=== PATIENT | male | born 1960 | race Caucasian/White ===

== ENCOUNTER 2019-05-29 09:42 | Emergency (ER) | payer MEDICARE, SELFPAY ==
[2019-05-29] VITALS (44 sets, daily range): BP systolic 108–138; BP diastolic 61–100; PULSE 74–112; RESP 13–32; TEMP 36.5; O2SAT 82–96; BMI 37.6
--- NOTE | 2019-05-29 09:49 | ED_ITS ---
Entered by Birdie Luna, acting as scribe for HPI - Chest Pain General: Chief Complaint: Syncope Stated Complaint: SYNCOPE/ CHEST PAIN Time Seen by Provider: 05/29/19 09:46 Source: patient and EMS Mode of arrival: EMS Limitations: no limitations History of Present Illness: HPI narrative: 58 yo female presents with a syncope episode. pt states he was up when he got light headed and fell. pt states he had chest tightness with a cough. pt has a heart history with stents. pt denies any other symptoms at this time. MD complaint: chest pain (with cough) and other (syncope) Pertinent past history: prior [place] (stents in heart and bilateral legs) Onset (ago): hour(s) (just [employer]CH[employer]) Timing of current episode: constant Prior episodes: No Onset: during rest Pain radiation: none Severity: mild Quality: tightness Relieving factors: nothing Exacerbating factors: nothing Associated symptoms: Reports syncope and other (light headed, cough); Deny abdominal pain, fever(s), nausea or vomiting Treatment prior to arrival: other (EMS IV) Review of Systems Const: Denies: fever, chills, body aches, fatigue, malaise or night sweats Eyes: Denies: change in vision or blurry vision ENMT: Denies: throat pain, oral sores/lesions, dental pain, nasal discharge or nasal congestion Card: Reports: syncope Resp: Denies: wheezing GI: Denies: abdominal pain, nausea, vomiting, vomiting blood, coffee grounds in vomit, difficulty swallowing, heartburn/indigestion, diarrhea, constipation, cramping, blood in stool or black tarry stool : Denies: flank pain, difficulty urinating, painful urination, urinary frequency, urinary urgency, urinary incontinence or blood in urine Musc: Denies: neck pain, back pain, extremity pain, extremity swelling, joint pain or joint swelling Skin/Breast: Denies: rash, itching or redness Neuro: Denies: headache, numbness in extremities, weakness in extremities, changes in sensation, lack of coordination, vertigo or confusion Psych: Denies: sleeping more Endo: Denies: excessive urination, excessive thirst, tired all the time or cold intolerance Lauri/Lymph: Denies: easy bruising, easy bleeding, petechiae, enlarged lymph nodes or tender lymph nodes PFSH ED PFSH: Statuses (acute, chronic, etc) shown below reflect problem list status as previously entered and may not be historically accurate Medical History Cardiomyopathy (Acute) CHF (congestive heart failure) (Acute) Hypotension (Inactive) SALONI (obstructive sleep apnea) (Acute) Panlobular emphysema (Acute) Surgical History Status cardiac pacemaker (Acute) Family History Father Myocardial infarct Mother Myocardial infarct Other Family history of premature coronary artery disease Hypertension Social History Smoking and tobacco status: current every day smoker Quit status (tobacco): has tried quititng Second hand smoke exposure: Yes Smoking risk assessment/counseling performed?: No Alcohol intake: former Physical Exam Const: COMMON NORMALS: average body habitus, oriented x3 and alert GENERAL APPEARANCE: cooperative, comfortable, well kempt and well developed NUTRITIONAL APPEARANCE: obese ORIENTATION/CONSCIOUSNESS: Yes awake, Yes oriented to person and Yes oriented to place HENMT: COMMON NORMALS: normocephalic, head/scalp atraumatic, EAC's normal, TM's normal bilaterally, external nose normal, moist oral mucous membranes and oropharynx normal HEAD & SCALP: normocephalic and atraumatic NOSE: external nose normal EXTERNAL AUDITORY CANAL: EAC's normal TYMPANIC MEMBRANE: TM's normal bilaterally MOUTH: oral and palatal mucosa normal, lip normal and tongue normal THROAT: posterior oropharynx normal and tonsils no rmal Eye: COMMON NORMALS: PERRL, EOMs intact bilaterally, conjunctivae normal and no scleral icterus CONJUNCTIVA: Yes conjunctivae normal PUPIL: Yes PERRL Neck/C-Spine: COMMON NORMALS: full ROM, no lymphadenopathy, supple, no meningeal signs and thyroid normal THYROID: thyroid normal and asymmetrical Lymph: LYMPHATIC: no lymphadenopathy noted Cardio: COMMON NORMALS: regular rate and regular rhythm RATE: regular rate RHYTHM: regular rhythm HEART SOUNDS: no murmurs GI: COMMON NORMALS: normal to inspection, nondistended, normoactive bowel sounds, soft to palpation and no hepatosplenomegaly PALPATION: Yes soft and Yes no hepatosplenomegaly : COMMON NORMALS: Yes no CVA tenderness BLADDER/KIDNEY EXAM: Yes no CVA tenderness Back/Pelvis: COMMON NORMALS: no CVA tenderness LUMBAR SPINE/LOWER BACK: Yes normal to inspection Extremity: COMMON NORMALS: no clubbing, cyanosis or edema, no calf tenderness and no pedal edema Neuro: COMMON NORMALS: oriented x3 SENSORIUM/ORIENTATION: Yes alert, Yes oriented to person and Yes oriented to place MENINGEAL SIGNS: Yes no meningeal signs Psych: APPEARANCE: Yes well kempt Skin: COMMON NORMALS: no rashes or lesions noted and skin turgor normal GENERAL SKIN EXAM: no rashes or lesions noted and turgor normal Course ED course: Patient was up ambulating the halls and doing well. From his description sounds as if he got up quickly got lightheaded and dizzy had a near syncopal episode we will go ahead and discharge him home if he has a recurrent of episodes return he is not had any chest pain here in the emergency room. Vital Signs: Vital signs: Vital Signs Temperature 97.7 F 05/29/19 09:43 Pulse Rate 112 H 05/29/19 13:23 Respiratory Rate 18 05/29/19 13:23 Blood Pressure 138/92 05/29/19 13:23 Pulse Oximetry 94 05/29/19 13:23 MDM - Chest Pain Lab Data: Labs: Lab Results 05/29/19 05/29/19 05/29/19 Range/Units 09:30 09:30 09:30 WBC 8.7 (4.0-10.0) 10^3/ uL RBC 4.60 (4.1-5.3) 10^6/u L Hgb 11.4 L (11.7-16.6) g/dL Hct 39.0 L (42.0-52.0) % MCV 84.8 (80-94) fL MCH 24.8 L (28.0-34.0) pg MCHC 29.2 L (30.0-36.0) g/dL RDW 20.1 H (12.1-15.1) % Plt Count 238 (130-400) 10^3/c mm MPV 9.5 (7.4-10.4) fL Neut % (Auto) 53.4 % Lymph % (Auto) 33.1 % [place] % (Auto) 9.3 % Eos % (Auto) 2.8 % Baso % (Auto) 1.2 % Neut # (Auto) 4.6 (1.8-7.7) 10^3/u L Lymph # (Auto) 2.9 (0.8-4.8) 10^3/u L [place] # (Auto) 0.8 (0.2-0.9) 10^3/u L Eos # (Auto) 0.2 (0.0-0.8) 10^3/u L Baso # (Auto) 0.1 (0.0-0.1) 10^3/u L Nucleated RBC % (a uto) 0 % Nucleated RBCs # 0.0 /100WBC PT 18.50 H (10.5-13.3) SECO NDS INR 1.48 H (0.8-1.2) APTT 35.2 (23.9-36.7) SECO NDS Sodium 133 L (136-145) mmol/L Potassium 4.1 (3.5-5.1) mmol/L Chloride 96 L (98-107) mmol/L Carbon Dioxide 23 (22-29) mmol/L Anion Gap 18.1 (5-19) BUN 12 (8-23) mg/dL Creatinine 0.8 (0.7-1.2) mg/dL GFR Calculation 98.6 (90-130) mL/min Glucose 92 (74-106) mg/dL Calcium 9.8 (8.5-10.5) mg/dL Total Bilirubin 1.4 H (0.15-1.2) mg/dL AST 26 (0-40) U/L ALT 16 (0-41) U/L Alkaline Phosphata se 176 H (40-130) IU/L Troponin T Baselin e (0-15) ng/mL Troponin T 120 Min mentasta (0-15) ng/mL Delta Troponin T (0-10) ABS# Total Protein 8.1 (6.6-8.7) g/dL Albumin 4.2 (3.5-5.2) g/dL Globulin 3.9 (1.3-4.6) g/dL 05/29/19 05/29/19 Range/Units 09:30 11:38 WBC (4.0-10.0) 10^3/ uL RBC (4.1-5.3) 10^6/u L Hgb (11.7-16.6) g/dL Hct (42.0-52.0) % MCV (80-94) fL MCH (28.0-34.0) pg MCHC (30.0-36.0) g/dL RDW (12.1-15.1) % Plt Count (130-400) 10^3/c mm MPV (7.4-10.4) fL Neut % (Auto) % Lymph % (Auto) % [place] % (Auto) % Eos % (Auto) % Baso % (Auto) % Neut # (Auto) (1.8-7.7) 10^3/u L Lymph # (Auto) (0.8-4.8) 10^3/u L [place] # (Auto) (0.2-0.9) 10^3/u L Eos # (Auto) (0.0-0.8) 10^3/u L Baso # (Auto) (0.0-0.1) 10^3/u L Nucleated RBC % (a uto) % Nucleated RBCs # /100WBC PT (10.5-13.3) SECO NDS INR (0.8-1.2) APTT (23.9-36.7) SECO NDS Sodium (136-145) mmol/L Potassium (3.5-5.1) mmol/L Chloride (98-107) mmol/L Carbon Dioxide (22-29) mmol/L Anion Gap (5-19) BUN (8-23) mg/dL Creatinine (0.7-1.2) mg/dL GFR Calculation (90-130) mL/min Glucose (74-106) mg/dL Calcium (8.5-10.5) mg/dL Total Bilirubin (0.15-1.2) mg/dL AST (0-40) U/L ALT (0-41) U/L Alkaline Phosphata se (40-130) IU/L Troponin T Baselin e 35 H (0-15) ng/mL Troponin T 120 Min [place] 31.79 H (0-15) ng/mL Delta Troponin T -3.21 L (0-10) ABS# Total Protein (6.6-8.7) g/dL Albumin (3.5-5.2) g/dL Globulin (1.3-4.6) g/dL Discharge Plan Discharge Patient Disposition: Home, Self-Care Clinical Impression: Near syncope Condition: Stable Prescriptions: No Action warfarin 5 mg tablet 5 mg PO DAILY RF: 0 metoprolol succinate 50 mg tablet extended release 24 hr See Rx Instructions PO DAILY RF: 0 metolazone 2.5 mg tablet 2.5 mg PO BID PRN (Reason: Edema) RF: 0 potassium chloride 20 mEq tablet extended release 20 meq PO BID PRN (Reason: WITH WATER PILL) RF: 0 simvastatin 40 mg tablet 40 mg PO DAILY RF: 0 torsemide 100 mg tablet 200 mg PO DAILY RF: 0 nitroglycerin [Nitrostat] 0.4 mg tablet, sublingual 0.4 mg SUBLINGUAL Q5M PRN (Reason: Chest Pain) RF: 0 aspirin [Enteric Coated Aspirin] 81 mg tablet,delayed release (DR/EC) 81 mg PO DAILY RF: 0 Referrals: Ahmet Jasso MD [Primary Care Provider] - Discharge Diet: Advance as tolerated Discharge Activity: Increase activity as tolerated Patient Instructions: Chest Pain - Noncardiac, Syncope, Lightheadedness (ED), Dizziness (ED) Activity Restrictions/Additional Instructions: Return if has problems. Rest advance activity as tolerated. Follow-up with Dr. Jasso next week. Discharge Date/Time: 05/29/19 13:36 Coding Level of Care Code ED Star Route Mail Driver for Chg Fwd Exam Problem Focused The documentation recorded by the Jeremy wilson Bridget Annette, accurately reflects the service I personally performed and the decisions made by Amalia marquez Curtis L, May 29, 2019 09:42
--- NOTE | 2019-05-29 10:28 | ECG_ITS ---
Measurements Intervals [place] Rate: 84 P: NC: 0 QRS: -73 QRSD: 104 T: 98 QT: 386 QTc: 459 ATRIAL FIBRILLATION with demand ventricular pacing LEFT ANTERIOR FASCICULAR BLOCK [QRS AXIS <= -45, QR IN I, RS IN II] MINIMAL ST DEPRESSION [0.025+ mV ST DEPRESSION] ABNORMAL QRS-T ANGLE [QRS-T AXIS DIFFERENCE > 60] Compared to ECG 04/29/2019 09:45:10 ST (T wave) deviation now present Myocardial infarct finding no longer present Electronically Signed On 05-29-2019 15:26:43 GOLF RANGE ATTENDANT by Eduin Thomas M.D. [email or web address]
--- NOTE | 2019-05-29 10:28 | XRR_ITS ---
PROCEDURE INFORMATION: Exam: XR Chest, 1 View Exam date and time: 05/29/2019 10:42 AM Age: 58 years old Clinical indication: Chest pain; Type not specified; Prior surgery; Surgery type: Pacemaker TECHNIQUE: Imaging protocol: XR of the chest Views: 1 view. COMPARISON: CR Chest 1 [place] [id number] 04/29/2019 7:10 AM FINDINGS: Tubes, catheters and devices: Pacemaker is present via a left subclavian approach. Lungs: Interstitial prominence diffusely possibly chronic. Consider high-resolution CT. No focal infiltrate. Pleural space: Unremarkable. No pleural effusion. No pneumothorax. Heart/Mediastinum: Cardiac silhouette is enlarged. Bones/joints: Unremarkable. XR/XR chest 1V portable [id number] IMPRESSION: Interstitial prominence diffusely possibly chronic. Consider high-resolution CT. No focal infiltrate.
[2019-05-29 10:35] LABS: Basophils # 0.1 10^3/uL (0.0-0.1); Basophils % 1.2 %; Eosinophils # 0.2 10^3/uL (0.0-0.8); Eosinophils % 2.8 %; Hemoglobin 11.4 g/dL (11.7-16.6); Lymphocytes # 2.9 10^3/uL (0.8-4.8); Lymphocytes % 33.1 %; Mean Corpuscular HGB Conc 29.2 g/dL (30.0-36.0); Mean Corpuscular Hemoglobin 24.8 pg (28.0-34.0); Mean Corpuscular Volume 84.8 fL (80-94); Mean Platelet Volume 9.5 fL (7.4-10.4); Monocytes # 0.8 10^3/uL (0.2-0.9); Monocytes % 9.3 %; Neutrophils # 4.6 10^3/uL (1.8-7.7); Neutrophils % 53.4 %; Nucleated Red Blood Cells % 0 %; Platelet Count 238 10^3/cmm (130-400); Red Cell Distribution Width 20.1 % (12.1-15.1); White Blood Count 8.7 10^3/uL (4.0-10.0)
--- NOTE | 2019-05-29 10:38 | PC.NURSE ---
Xray performed at bedside
[2019-05-29 10:41] LABS: INR 1.48 (0.8-1.2); Partial Thromboplastin Time 35.2 SECONDS (23.9-36.7)
[2019-05-29 10:55] LABS: Alanine Aminotransferase 16 U/L (0-41); Albumin Level 4.2 g/dL (3.5-5.2); Alkaline Phosphatase 176 IU/L (40-130); Anion Gap 18.1 (5-19); Aspartate Amino Transferase 26 U/L (0-40); Blood Urea Nitrogen 12 mg/dL (8-23); Calcium 9.8 mg/dL (8.5-10.5); Carbon Dioxide 23 mmol/L (22-29); Chloride 96 mmol/L (98-107); Globulin 3.9 g/dL (1.3-4.6); Glomerular Filtration Rate 98.6 mL/min (90-130); Glucose 92 mg/dL (74-106); Potassium 4.1 mmol/L (3.5-5.1); Sodium 133 mmol/L (136-145); Total Bilirubin 1.4 mg/dL (0.15-1.2); Total Protein 8.1 g/dL (6.6-8.7)
[2019-05-29 10:56] LABS: Troponin(5th) Baseline 35 ng/mL (0-15)
--- NOTE | 2019-05-29 11:06 | US_ITS ---
WS: [id number] RIGHT UPPER QUADRANT ULTRASOUND HISTORY: elevated t bili COMPARISON: None available. Liver: 19.1 cm in length. Moderate hepatomegaly. Diffuse attenuation and increased density throughout the liver from hepatic steatosis. No bile duct dilatation. Gallbladder: Poorly visualized gallbladder. No stones identified. The wall is top normal size at 3 mm . No pericholecystic fluid. No hydrops. CBD: 4.0 mm Pancreas: Not visualized. Right kidney: 11.8 cm in length. Poorly visualized. No hydronephrosis. Aorta and IVC: Poorly visualized. No ascites. US/US gall bladder [id number] IMPRESSION: 1. Technically very limited evaluation of the RIGHT upper quadrant. 2. No evidence for acute cholecystitis. 3. Moderate hepatomegaly and severe hepatic steatosis.
--- NOTE | 2019-05-29 11:18 | PC.NURSE ---
US at bedside
[2019-05-29 12:02] LABS: Troponin 5 2HR 31.79 ng/mL (0-15)
[2019-05-29 12:06] LABS: Troponin 5 2HR Delta -3.21 ABS# (0-10)
[2019-05-29] MEDS: sodium chloride 0.9% 500 ML 999 ML IV (13:04)
--- NOTE | 2019-05-29 13:22 | PC.NURSE ---
Pt ambulated in hallways approx 300 feet with no difficulty or assistance. Dr Holland notified.
--- NOTE | 2019-05-29 16:28 | ECG_ITS ---
Measurements Intervals [place] Rate: 89 P: VA: 0 QRS: -72 QRSD: 100 T: 85 QT: 380 QTc: 464 ATRIAL FIBRILLATION WITH demand pacing LEFT AXIS DEVIATION [QRS AXIS < -30] MINIMAL ST DEPRESSION [0.025+ mV ST DEPRESSION] Compared to ECG 04/29/2019 09:45:10 Aberrant conduction of supraventricular beat(s) now present Left-axis deviation now present ST (T wave) deviation now present Ventricular-paced complex(es) still present Myocardial infarct finding no longer present Electronically Signed On 05-29-2019 15:31:29 OVENS SUPERVISOR by Eduin Thomas M.D. [email or web address]
--- NOTE | 2019-05-30 15:55 | DCPLANNER ---
manager data warehousing had message to schedule a 24 hour halter monitor for patient with [facility]. manager data warehousing faxed the order to [facility], will call for appointment information.
--- NOTE | 2019-06-04 14:40 | DCPLANNER ---
Patient had a follow up appointment scheduled for 05.30.19 with [facility], patient did not show up to the appointment.
== END 2019-05-29 13:36 | disposition home or self-care (01) ==
PROVIDERS: Emergency Provider Family Medicine; Family Provider Internal Medicine; PCP Internal Medicine
DX: R55 Syncope and collapse (principal); Z79.84 Long term (current) use of oral hypoglycemic drugs; Z79.82 Long term (current) use of aspirin; I50.9 Heart failure, unspecified; Z95.0 Presence of cardiac pacemaker; F17.210 Nicotine dependence, cigarettes, uncomplicated
CPT/HCPCS: 36415; 71045; 76705; 80053; 84484; 85025; 85610; 85730; 93005; 96360; 99284; J7040

== ENCOUNTER 2019-06-11 06:05 | Emergency (ER) | payer MEDICARE, SELFPAY ==
[2019-06-11] VITALS (8 sets, daily range): BP systolic 110–126; BP diastolic 67–88; PULSE 68–90; RESP 16–20; TEMP 36.4; O2SAT 91–99
--- NOTE | 2019-06-11 06:12 | XR_ITS ---
WS: [id number] CHEST XRAY TECHNIQUE: Portable chest. CLINICAL INFORMATION: cough COMPARISON: May 29, 2019 FINDINGS: Cardiac pacer. Heart: Cardiomegaly. Lungs: Chronic emphysematous changes. Mild diffuse interstitial thickening similar to previous. No ne w pulmonary infiltrates. Bones: Normal visualized bony structures. XR/XR chest 1V portable [id number] IMPRESSION: 1. Stable cardiomegaly. 2. Chronic emphysematous changes with stable interstitial thickening. No new i nfiltrates.
--- NOTE | 2019-06-11 06:13 | ED_ITS ---
HPI - URI/Sore Throat General: Chief Complaint: Fever Stated Complaint: fever, cough Time Seen by Provider: 06/11/19 06:12 History of Present Illness: HPI Narrative: 58-year-old male presents emergency room with complaints of cough fever generalized malaise and muscle aches. He has had this for the last several days and has been progressively worsening. A syncopal-like episode a week ago we evaluated him in the emergency room he seemed to feel better and wished to go home. On arrival here today his sats are 98% he is coughing prolifically was moderate production he was able to give a sputum sample shortly after arrival. He has had a subjective fever at home denies vomiting or diarrhea. Is not on any oxygen at home. MD elicited complaint: fever and cough Pertinent past history: COPD Onset (ago): day(s) Consistency: constant and progressively worsening Severity: similar to previous episodes Description of mucous: yellow Able to tolerate fluids by mouth: Yes Exacerbating factors: exertion and supine positioning Relieving factors: rest Associated symptoms: Reports cough, fever(s), nasal congestion and short of breath; Deny abdominal pain, chills, chest pain or nausea Treatments prior to arrival: acetaminophen Review of Systems Const: Reports: fever, body aches, change in appetite, fatigue and malaise; Denies: chills ENMT: Reports: nasal congestion Card: Denies: chest pain, edema, shortness of breath on exertion or shortness of breath when lying down Resp: Reports: shortness of breath and non-productive cough; Denies: productive cough GI: Denies: abdominal pain or nausea : Denies: flank pain, painful urination, urinary frequency or urinary urgency Skin/Breast: Denies: rash or itching PFSH ED PFSH: Statuses (acute, chronic, etc) shown below reflect problem list status as previously entered and may not be historically accurate Social History Smoking and tobacco status: current every day smoker Quit status (tobacco): has tried quititng Second hand smoke exposure: Yes Smoking risk assessment/counseling performed?: No Alcohol intake: former Physical Exam Narrative: EXAM NARRATIVE: Mildly cyanotic at the lips and perioral however his sats are normal. He has had similar appearance in the past when I seen him. Const: COMMON NORMALS: no apparent distress GENERAL APPEARANCE: cooperative and comfortable ORIENTATION/CONSCIOUSNESS: Yes awake, Yes oriented to person, Yes oriented to place and Yes oriented to time HENMT: COMMON NORMALS: normocephalic, head/scalp atraumatic, hearing grossly normal bilaterally, external ears normal, EAC's normal, TM's normal bilaterally, nasal mucous membranes and turbinates normal, moist oral mucous membranes and oropharynx normal HEAD & SCALP: normocephalic and atraumatic NOSE: nasal mucous membranes and turbinates normal EXTERNAL EAR: Yes external ears normal EXTERNAL AUDITORY CANAL: EAC's normal TYMPANIC MEMBRANE: TM's normal bilaterally Eye: COMMON NORMALS: PERRL, EOMs intact bilaterally, conjunctivae normal and no scleral icterus CONJUNCTIVA: Yes conjunctivae normal PUPIL: Yes PERRL Neck/C-Spine: COMMON NORMALS: full ROM, no lymphadenopathy, supple and no JVD Lymph: LYMPHATIC: no lymphadenopathy noted and no lymphedema noted Resp: AUSCULTATION: wheezes and diminished lung sounds Cardio: COMMON NORMALS: no JVD, regular rate, regular rhythm and no murmurs RATE: regular rate RHYTHM: regular rhythm GI: COMMON NORMALS: soft to palpation and no hepatosplenomegaly AUSCULTATION: Yes normoactive bowel sounds PALPATION: Yes soft, No tender, No guarding and Yes no hepatosplenomegaly Extremity: COMMON NORMALS: normal to inspection, normal capillary refill, no clubbing, cyanosis or edema, no calf tenderness and no pedal edema Neuro: SENSORIUM/ORIENTATION: Yes oriented to person, Yes oriented to place and Yes oriented to time Skin: COMMON NORMALS: no rashes or lesions noted GENERAL SKIN EXAM: no rashes or lesions noted Course ED course: Sats are normal labs reviewed patient is feeling much better after nebulizers encouraged nausea use the nebulizer at least every 4 hours as needed but at minimum 4 times a day will also start him on Spiriva given Levaquin and a Medrol Dosepak we will get him set up to see Dr. Ragsdale Vital Signs: Vital signs: Vital Signs Temperature 97.5 F L 06/11/19 06:11 Pulse Rate 68 06/11/19 10:07 Respiratory Rate 18 06/11/19 09:53 Blood Pressure 126/67 06/11/19 10:07 Pulse Oximetry 91 02/05/20 10:07 MDM - URI/Sore Throat Lab Data: Labs: Lab Results 06/11/19 06/11/19 06/11/19 Range/Units 06:20 06:30 07:00 WBC 9.3 (4.0-10.0) 10^3/ uL RBC 4.58 (4.1-5.3) 10^6/u L Hgb 11.3 L (11.7-16.6) g/dL Hct 38.1 L (42.0-52.0) % MCV 83.2 (80-94) fL MCH 24.7 L (28.0-34.0) pg MCHC 29.7 L (30.0-36.0) g/dL RDW 20.2 H (12.1-15.1) % Plt Count 295 (130-400) 10^3/c mm MPV 9.1 (7.4-10.4) fL Neut % (Auto) 52.1 % Lymph % (Auto) 33.6 % [place] % (Auto) 10.7 % Eos % (Auto) 2.1 % Baso % (Auto) 1.1 % Neut # (Auto) 4.8 (1.8-7.7) 10^3/u L Lymph # (Auto) 3.1 (0.8-4.8) 10^3/u L [place] # (Auto) 1.0 H (0.2-0.9) 10^3/u L Eos # (Auto) 0.2 (0.0-0.8) 10^3/u L Baso # (Auto) 0.1 (0.0-0.1) 10^3/u L Nucleated RBC % (a uto) 0.4 % Nucleated RBCs # 0.0 /100WBC Specimen Type Arterial Sample Site Radial, right ABG pH 7.44 (7.35-7.45) ABG pCO2 30.8 L (35-45) mmHg ABG pO2 71.4 L (80.0-100.0) mmH g ABG HCO3 21.0 L (22-26) mmol/L ABG O2 Saturation 95.3 ABG Base Excess -2.3 L (-2.0-2.0) mmol/ L Jose Alberto Test Pos A-a O2 Gradient 85.8 H (5-10) mmHg Hematocrit 35.4 L (42-52) % Hgb O2 Saturation 91.6 L (95-100) % Carboxyhemoglobin 3.6 (0.4-20.1) %THgb Methemoglobin 0.2 L (0.4-1.5) % Total Hemoglobin 11.5 L (14-18) g/dL Sodium 132.0 (131-143) mmol/L Potassium 4.1 (3.5-5.0) mmol/L Glucose 103.0 (70-115) mg/dL Ionized Calcium 1.1 (1.1-1.4) mmol/L O2 Delivery Device Nc O2 Liters/Min 2.0 % FiO2 28.0 % Dump Motor Operator ID [email or web address] Chloride (98-107) mmol/L Carbon Dioxide (22-29) mmol/L Anion Gap (5-19) BUN (8-23) mg/dL Creatinine (0.7-1.2) mg/dL GFR Calculation (90-130) mL/min Calcium (8.5-10.5) mg/dL Total Bilirubin (0.15-1.2) mg/dL AST (0-40) U/L ALT (0-41) U/L Alkaline Phosphata se (40-130) IU/L Total Protein (6.6-8.7) g/dL Albumin (3.5-5.2) g/dL Globulin (1.3-4.6) g/dL Influenza Type A A g Negative (Negative) POC Influenza B Ag Negative (Negative) 06/11/19 Range/Units 07:00 WBC (4.0-10.0) 10^3/ uL RBC (4.1-5.3) 10^6/u L Hgb (11.7-16.6) g/dL Hct (42.0-52.0) % MCV (80-94) fL MCH (28.0-34.0) pg MCHC (30.0-36.0) g/dL RDW (12.1-15.1) % Plt Count (130-400) 10^3/c mm MPV (7.4-10.4) fL Neut % (Auto) % Lymph % (Auto) % [place] % (Auto) % Eos % (Auto) % Baso % (Auto) % Neut # (Auto) (1.8-7.7) 10^3/u L Lymph # (Auto) (0.8-4.8) 10^3/u L [place] # (Auto) (0.2-0.9) 10^3/u L Eos # (Auto) (0.0-0.8) 10^3/u L Baso # (Auto) (0.0-0.1) 10^3/u L Nucleated RBC % (a uto) % Nucleated RBCs # /100WBC Specimen Type Sample Site ABG pH (7.35-7.45) ABG pCO2 (35-45) mmHg ABG pO2 (80.0-100.0) mmH g ABG HCO3 (22-26) mmol/L ABG O2 Saturation ABG Base Excess (-2.0-2.0) mmol/ L Jose Alberto Test A-a O2 Gradient (5-10) mmHg Hematocrit (42-52) % Hgb O2 Saturation (95-100) % Carboxyhemoglobin (0.4-20.1) %THgb Methemoglobin (0.4-1.5) % Total Hemoglobin (14-18) g/dL Sodium 130 L (131-143) mmol/L Potassium 4.4 (3.5-5.0) mmol/L Glucose 101 (70-115) mg/dL Ionized Calcium (1.1-1.4) mmol/L O2 Delivery Device O2 Liters/Min % FiO2 % Dump Motor Operator ID Chloride 98 (98-107) mmol/L Carbon Dioxide 21 L (22-29) mmol/L Anion Gap 15.4 (5-19) BUN 16 (8-23) mg/dL Creatinine 1.1 (0.7-1.2) mg/dL GFR Calculation 68.3 L (90-130) mL/min Calcium 9.3 (8.5-10.5) mg/dL Total Bilirubin 1.7 H (0.15-1.2) mg/dL AST 33 (0-40) U/L ALT 22 (0-41) U/L Alkaline Phosphata se 196 H (40-130) IU/L Total Protein 8.6 (6.6-8.7) g/dL Albumin 3.7 (3.5-5.2) g/dL Globulin 4.9 H (1.3-4.6) g/dL Influenza Type A A g (Negative) POC Influenza B Ag (Negative) Discharge Plan Discharge Patient Disposition: Home, Self-Care Clinical Impression: Panlobular emphysema, SALONI (obstructive sleep apnea) Condition: Stable Prescriptions: New Medrol (Zeke) 4 mg tablets,dose pack See Rx Instructions .ROUTE .COMPLEX Qty: 21 RF: 0 Spiriva Respimat 2.5 mcg/actuation mist 2 puff INHALATION DAILY Qty: 4 RF: 0 Levaquin 750 mg tablet 750 mg PO DAILY 7 Days Qty: 7 RF: 0 No Action warfarin 5 mg tablet 5 mg PO DAILY RF: 0 metoprolol succinate 50 mg tablet extended release 24 hr See Rx Instructions PO DAILY RF: 0 metolazone 2.5 mg tablet 2.5 mg PO BID PRN (Reason: Edema) RF: 0 potassium chloride 20 mEq tablet extended release 20 meq PO BID PRN (Reason: WITH WATER PILL) RF: 0 simvastatin 40 mg tablet 40 mg PO DAILY RF: 0 torsemide 100 mg tablet 200 mg PO DAILY RF: 0 nitroglycerin [Nitrostat] 0.4 mg tablet, sublingual 0.4 mg SUBLINGUAL Q5M PRN (Reason: Chest Pain) RF: 0 aspirin [Enteric Coated Aspirin] 81 mg tablet,delayed release (DR/EC) 81 mg PO DAILY RF: 0 Discharge Orders: Discharge Order (Routine); Ordered 06/11/19 Ordered By: Conrad Holland Referrals: Tawny Ragsdale MD [Physician] - (COPD) Discharge Diet: Usual diet Discharge Activity: Increase activity as tolerated Activity Restrictions/Additional Instructions: Use nebulizers 4 times a day scheduled and every 2 hours as needed. Case management will call with an appointment to see the coke handling supervisor Discharge Date/Time: 06/11/19 10:07 Coding Level of Care Code ED Category Analyst for Ruma Conley
[2019-06-11] MEDS: ipratropium-albuterol 3 mL Neb INHALATION (06:23)
--- NOTE | 2019-06-11 06:30 | PC.NURSE ---
o2 placed at 2 lpm r/t desat to 88 when coughing and poor perph perfusion
[2019-06-11 06:38] LABS: ABG PCO2 30.8 mmHg (35-45); ABG PH Result 7.44 (7.35-7.45); Alveolar-Arterial Oxygen Gradi 85.8 mmHg (5-10); Arterial Blood Gas Hematocrit 35.4 % (42-52); Base Excess ABG -2.3 mmol/L (-2.0-2.0); Blood Gas Allen Test Pos; Blood Gas Sample Site Radial, right; Blood Gas Sample Type Arterial; Carboxyhemoglobin 3.6 %THgb (0.4-20.1); HGB O2 Sat 91.6 % (95-100); Ionized Calcium Level - ABG 1.1 mmol/L (1.1-1.4); Methemoglobin 0.2 % (0.4-1.5); Oxygen Device NC; Oxygen Saturation ABG 95.3; PO2 ABG 71.4 mmHg (80.0-100.0); Potassium Level - ABG 4.1 mmol/L (3.5-5.0); Total Hemoglobin 11.5 g/dL (14-18)
[2019-06-11 07:11] LABS: Basophils # 0.1 10^3/uL (0.0-0.1); Basophils % 1.1 %; Eosinophils # 0.2 10^3/uL (0.0-0.8); Eosinophils % 2.1 %; Hematocrit 38.1 % (42.0-52.0); Hemoglobin 11.3 g/dL (11.7-16.6); Lymphocytes # 3.1 10^3/uL (0.8-4.8); Lymphocytes % 33.6 %; Mean Corpuscular HGB Conc 29.7 g/dL (30.0-36.0); Mean Corpuscular Hemoglobin 24.7 pg (28.0-34.0); Mean Corpuscular Volume 83.2 fL (80-94); Mean Platelet Volume 9.1 fL (7.4-10.4); Monocytes % 10.7 %; Neutrophils # 4.8 10^3/uL (1.8-7.7); Neutrophils % 52.1 %; Nucleated Red Blood Cells % 0.4 %; Platelet Count 295 10^3/cmm (130-400); Red Blood Count 4.58 10^6/uL (4.1-5.3); Red Cell Distribution Width 20.2 % (12.1-15.1); White Blood Count 9.3 10^3/uL (4.0-10.0)
[2019-06-11] MEDS: FUROsemide 10 mg/mL SDV 4mL 40 MG IVP (07:26)
[2019-06-11 07:28] LABS: Alanine Aminotransferase 22 U/L (0-41); Albumin Level 3.7 g/dL (3.5-5.2); Alkaline Phosphatase 196 IU/L (40-130); Anion Gap 15.4 (5-19); Aspartate Amino Transferase 33 U/L (0-40); Blood Urea Nitrogen 16 mg/dL (8-23); Calcium 9.3 mg/dL (8.5-10.5); Carbon Dioxide 21 mmol/L (22-29); Chloride 98 mmol/L (98-107); Globulin 4.9 g/dL (1.3-4.6); Glomerular Filtration Rate 68.3 mL/min (90-130); Potassium 4.4 mmol/L (3.5-5.1); Sodium 130 mmol/L (136-145); Total Bilirubin 1.7 mg/dL (0.15-1.2); Total Protein 8.6 g/dL (6.6-8.7)
[2019-06-11 07:40] LABS: Influenza A by IFA Negative (Negative); Influenza B by IFA Negative (Negative)
[2019-06-11 09:18] LABS: Glucose 101 mg/dL (65-115)
--- NOTE | 2019-06-11 09:40 | PC.PHAR ---
pt unable to verify meds, pt states his takes care of his medications and she is at work and cant answer her phone
[2019-06-11] MEDS: levoFLOXacin 750 mg Tablet PO (09:49)
--- NOTE | 2019-06-12 14:17 | DCPLANNER ---
geographic information systems manager had message to schedule a follow up appointment for patient with Dr. Ragsdale, at [facility]. geographic information systems manager called [facility], spoke with Angela, a follow up appointment was scheduled for Sunday, July 02, 2019 at 2:00 with . Clinic will call patient with appointment information.
--- NOTE | 2019-07-08 10:20 | DCPLANNER ---
Patient attended appointment with [facility], appointment was rescheduled from 07.02.19 to 06.30.19.
== END 2019-06-11 10:07 | disposition home or self-care (01) ==
PROVIDERS: Emergency Provider Family Medicine; Family Provider Internal Medicine; PCP Internal Medicine
DX: J43.1 Panlobular emphysema (principal); G47.33 Obstructive sleep apnea (adult) (pediatric); F17.200 Nicotine dependence, unspecified, uncomplicated
CPT/HCPCS: 36415; 36600; 71045; 80051; 80053; 82810; 83986; 85025; 87070; 87077; 87186; 87205; 87804; 94640; 96374; 96375; 99283; J1940

== ENCOUNTER 2019-07-08 08:55 | Outpatient (CLI) | payer MEDICARE, SELFPAY ==
--- NOTE | 2019-07-08 10:15 | CT_ITS ---
WS: [id number] CT CHEST CT, HIGH RESOLUTION. HISTORY: shortness of breath Technique: All CT scans at [facility] use at least one of these dose optimization techniq ues: automated exposure control; mA and/or kV adjustment per patient size (includes targeted exams wh ere dose is matched to clinical indication); or iterative reconstruction. DLP: 2033.79 mGycm COMPARISON: 09/14/[address] performed in prone and supine position with inspiration and expiration. Lungs are hyperinflated. No traction bronchiectasis or honeycombing. Hazy groundglass attenuation th roughout both lungs. There are numerous thin-walled cystic masses present bilaterally. The largest in the LEFT upper lobe measures 2.2 cm. Mild early changes of bronchiectasis in the lower lung freed a nd in the RIGHT middle lobe and to a lesser extent the upper lobes bilaterally. No dense areas of con solidation. There is mediastinal and hilar adenopathy. Some of these lymph nodes contain coarse calci fications centrally. These lymph nodes were described on 09/14/2017 also. Largest lymph node is subcar inal with a maximum diameter of 2.5 cm. Mild atherosclerosis aorta. Single lead LEFT cardiac pacer. Pulmonary artery size is enlarged measuri ng 3.5 cm in diameter. Moderate cardiomegaly. Surface of the liver is lobulated suggesting cirrhosis. No adrenal mass identified but adrenal glands are incompletely included. CT/CT chest wo con 75354 IMPRESSION: 1. Correlate for centrilobular emphysema and hypersensitivity pneumonia. Less likely Langerhans' cell histiocytosis. 2. Mediastinal and hilar adenopathy. Chronic adenopathy may be from prior gran ulomatous disease. 3. Enlarged heart mild pulmonary hypertension. 4. Suspect cirrhosis.
== END 2019-07-08 08:56 | disposition home or self-care (01) ==
LOC: RADWPI 08:58
PROVIDERS: Family Provider Internal Medicine; PCP Internal Medicine; Visit Provider Internal Medicine Critical Care Medicine
DX: I27.20 Pulmonary hypertension, unspecified (principal); I51.7 Cardiomegaly; R06.02 Shortness of breath; I48.0 Paroxysmal atrial fibrillation; Z95.0 Presence of cardiac pacemaker
CPT/HCPCS: 71250; 85610

== ENCOUNTER 2019-07-15 15:35 | Emergency (ER) | payer MEDICARE, SELFPAY ==
[2019-07-15 15:47] VITALS: BP 113/65; PULSE 63; RESP 16; TEMP 36.6; O2SAT 94; BMI 37.3
--- NOTE | 2019-07-15 16:24 | ED_ITS ---
Entered by Marry Jenkins, acting as scribe for Ernestina Billings Tanya Jul 15, 2019 15:35 HPI - General Adult General: Chief complaint: General Medical Stated complaint: BLOOD PRESSURE Time Seen by Provider: 07/15/19 16:23 Source: patient Mode of arrival: ambulatory Limitations: no limitations History of Present Illness: HPI narrative: 58 yo Male presents to ED with complaint of low blood pressure, dizziness, and lightheaded. Pt states that he is concerned that his blood pressure is too low. Pt states that he is concerned that one of his medications may be making him feel dizzy and light headed. Pt states that everything is ok during the day but it seems like it gets worse at night. Pt has a list of blood pressures that have ranged from the 100s-110s, but nothing lower than that. Pt states that he has started taking a new medication that Dr. Amor prescribed him. Pt states that he has a follow up appointment with Dr. Amor on . MD complaint: low blood pressure Onset (ago): day(s) Radiation: non-radiation Pain Consistency: intermittent Relieving factors: none Exacerbating factors: none Associated symptoms: Reports weakness and other (lightheaded/dizzy); Deny chest pain, confusion, diaphoresis, dyspnea, headache(s), malaise, nausea, rash, palpitations, syncope or vomiting Treatments prior to arrival: none Review of Systems General: Reports: other (negative unless marked) Const: Denies: fever, chills, body aches, fatigue, malaise or diaphoresis Eyes: Denies: change in vision or blurry vision ENMT: Denies: throat pain, painful swallowing, hoarseness, ear pain, ear discharge, Change in hearing or nasal discharge Card: Denies: chest pain, palpitations, irregular heart rhythm, syncope, pre- syncope, shortness of breath on exertion or shortness of breath when lying down Resp: Denies: shortness of breath, productive cough, non-productive cough, wheezing, coughing up blood or chest congestion GI: Denies: abdominal pain, nausea, vomiting, vomiting blood, coffee grounds in vomit, diarrhea, constipation, cramping, blood in stool or black tarry stool : Denies: flank pain, difficulty urinating, painful urination, urinary frequency, urinary urgency, decreased urine ouput, urinary incontinence or blood in urine Musc: Denies: neck pain, back pain, extremity pain, extremity swelling, joint pain, joint swelling, joint warmth or joint stiffness Skin/Breast: Denies: rash, skin tenderness or yellow skin Neuro: Reports: dizziness; Denies: headache, numbness in extremities, weakness in extremities, changes in sensation, lack of coordination, difficulty walking, vertigo or confusion Endo: Denies: excessive thirst, tired all the time, cold intolerance, excessive sweating, flushing or hot flashes Lauri/Lymph: Denies: easy bruising, easy bleeding, petechiae or enlarged lymph nodes All/Imm: Denies: hives, throat swelling, tongue swelling, facial swelling or acute wheezing PFSH ED PFSH: Medical History Anemia CAD in [place] artery Cardiomyopathy CHF (congestive heart failure) Combined systolic and diastolic. LVEF by LV gram in 2017 was 40%. CVA (cerebral vascular accident) HTN (hypertension) Hyperlipidemia Hypotension Hypothyroid Nicotine dependence, cigarettes, with unspecified nicotine-induced disorders Orthostasis SALONI (obstructive sleep apnea) Pacemaker 2014- dual chamber Panlobular emphysema Paroxysmal A-fib PVD (peripheral vascular disease) Vitamin B12 deficiency Surgical History H/O coronary angioplasty 2013 H/O reduction of closed fracture ankle History of cardiac radiofrequency ablation (RFA) 33802 Hx of appendectomy Status cardiac pacemaker Family History Father Myocardial infarct Mother Myocardial infarct Other Family history of premature coronary artery disease Hypertension Social History Smoking and tobacco status: current every day smoker cigarettes Packs smoked per day: 1 Years cigarettes smoked: 40 Quit status (tobacco): has tried quititng Second hand smoke exposure: Yes Smoking risk assessment/counseling performed?: Yes Alcohol intake: former Year of sobriety/quit date alcohol: 1980 Lives independently: Yes Household members: spouse Marital status: Current occupational status: disabled History of recent travel: No Current gender identity: Male Physical Exam Const: COMMON NORMALS: no apparent distress, oriented x3, no limitations, healthy appearing and well nourished EXAM LIMITATIONS: no altered mental status GENERAL APPEARANCE: cooperative, well kempt and well developed ORIENTATION/CONSCIOUSNESS: Yes awake HENMT: COMMON NORMALS: normocephalic, head/scalp atraumatic, hearing grossly normal bilaterally, external ears normal, EAC's normal, external nose normal and moist oral mucous membranes HEAD & SCALP: normal to inspection, normocephalic and atraumatic FACE & SINUS: normal facial exam and face symmetric NOSE: external nose normal and nares normal EXTERNAL EAR: Yes external ears normal EXTERNAL AUDITORY CANAL: EAC's normal MOUTH: oral and palatal mucosa normal and tongue normal Eye: COMMON NORMALS: PERRL, EOMs intact bilaterally, conjunctivae normal and no scleral icterus GENERAL EYE: normal appearance of both eyes and normal light reflex CONJUNCTIVA: Yes conjunctivae normal SCLERA: sclerae normal CORNEA: Yes corneas normal PUPIL: Yes PERRL DIRECT OPHTHALMOSCOPY: Yes normal light reflex Neck/C-Spine: COMMON NORMALS: full ROM, no lymphadenopathy, supple, no meningeal signs and no JVD GENERAL: Yes normal visual inspection and Yes trachea midline CERVICAL SPINE: Yes cervical ROM normal Chest: COMMONS NORMALS: inspection of chest normal and palpation of chest normal Resp: COMMON NORMALS: normal respiratory effort, no retractions, no use of accessory muscles and clear to auscultation bilaterally EFFORT & INSPECTION: Yes able to speak in complete sentences AUSCULTATION: clear to auscultation bilaterally Cardio: COMMON NORMALS: no JVD, regular rate, regular rhythm, S1 normal heart sound, S2 normal heart sound, no gallops, no clicks, no murmurs and no rub JUGULAR VENOUS DISTENTION: no JVD RATE: regular rate RHYTHM: regular rhythm HEART SOUNDS: S1 normal and S2 normal GI: COMMON NORMALS: soft to palpation, non-tender, no hepatosplenomegaly and no masses INSPECTION: Yes normal to inspection PALPATION: Yes soft and Yes no hepatosplenomegaly : COMMON NORMALS: Yes no CVA tenderness BLADDER/KIDNEY EXAM: Yes no CVA tenderness Back/Pelvis: COMMON NORMALS: no CVA tenderness, thoracic and lumbar spine normal to inspection, no thoracic nor lumbar tenderness and thoraco-lumbar ROM normal Extremity: COMMON NORMALS: normal to inspection, full ROM, normal capillary refill, no joint enlargement, no clubbing, cyanosis or edema and no calf tenderness Neuro: COMMON NORMALS: oriented x3, CN's II-XII intact bilaterally, moves all extremities, no focal motor deficits and no sensory deficits noted MENINGEAL SIGNS: Yes no meningeal signs Psych: COMMON NORMALS: mental status grossly normal, thought process normal, cooperative, affect normal, speech normal and activity/motor behavior normal APPEARANCE: Yes well kempt SPEECH: Yes normal speech THOUGHT PROCESS: normal thought process Skin: COMMON NORMALS: no rashes or lesions noted, skin turgor normal, no jaundice, no petechiae and no mottling GENERAL SKIN EXAM: no rashes or lesions noted and turgor normal Course Vital Signs: Vital signs: Vital Signs Temperature 97.8 F 07/15/19 15:47 Pulse Rate 78 07/15/19 16:55 Respiratory Rate 17 07/15/19 16:55 Blood Pressure 125/74 07/15/19 16:55 Pulse Oximetry 98 07/15/19 16:55 MDM - General Adult MDM Narrative: Medical decision making narrative: Leroy comes in complaining of low blood pressures. He sounds relatively asymptomatic with this. His pressures are down in the 100s and 1 teens but no lower. His heart rate is in the 60s to 70s with this. 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 Dowling on as scheduled. Patient has no symptoms with this he just wanted to be certain this was not too low as his blood pressure has been routinely much higher than this. He is asymptomatic at this time and declines any work-up. Discharge Plan Discharge Patient Disposition: Home, Self-Care Clinical Impression: Hypertension Qualifiers: Hypertension type: unspecified Qualified Code(s): I10 - Essential (primary) hypertension Condition: Stable Prescriptions: No Action warfarin 5 mg tablet 5 mg PO DAILY RF: 0 metolazone 2.5 mg tablet 2.5 mg PO BID PRN (Reason: Edema) RF: 0 potassium chloride 20 mEq tablet extended release 20 meq PO BID PRN (Reason: WITH WATER PILL) RF: 0 simvastatin 40 mg tablet 40 mg PO DAILY RF: 0 torsemide 100 mg tablet 200 mg PO DAILY RF: 0 nitroglycerin [Nitrostat] 0.4 mg tablet, sublingual 0.4 mg SUBLINGUAL Q5M PRN (Reason: Chest Pain) RF: 0 aspirin [Enteric Coated Aspirin] 81 mg tablet,delayed release (DR/EC) 81 mg PO DAILY RF: 0 metoprolol succinate 50 mg tablet extended release 24 hr 75 mg PO DAILY RF: 0 Anoro Ellipta 62.5-25 mcg/actuation blister with device 1 inh INHALATION Q24H 60 Days Qty: 60 RF: 0 warfarin 1 mg tablet 1 mg PO DAILY Qty: 90 RF: 3 Medrol (Zeke) 4 mg tablets,dose pack See Rx Instructions .ROUTE .COMPLEX Qty: 21 RF: 0 Discharge Orders: Discharge Order (Routine); Ordered 07/15/19 Ordered By: Ernestina Billings Referrals: Ahmet Jasso MD [Primary Care Provider] - Yomi Amor MD [Physician] - 1-3 days (Follow up with Dr. Amor on as scheduled. Continue your keeping a log of your blood pressures until you see him.) Discharge Diet: Usual diet Discharge Activity: Limit activity as instructed Patient Instructions: Hypertension (ED) Activity Restrictions/Additional Instructions: Please return to the ER immediately for any of the signs or symptoms listed on your discharge instruction sheets, worsening/changing of your symptoms, you are not getting better as quickly as expected, or for ANY other cause or concerns. Be certain to follow-up with Dr. Dowling as scheduled. Continue to keep a log of your blood pressure so you can show him at your visit. Discharge Date/Time: 07/15/19 16:56 Coding Level of Care Code ED Nutritionist Public Health for Chg Fwd Exam Comprehensive The documentation recorded by the Gregory wilson Carmen, accurately reflects the service I personally performed and the decisions made by Manuelito marquez Eli N Jul 15, 2019 15:35
[2019-07-15 16:55] VITALS: BP 125/74; PULSE 78; RESP 17; O2SAT 98
--- NOTE | 2019-07-16 11:20 | DCPLANNER ---
transition manager had a message to schedule a follow up appointment for patient with [facility]. transition manager called [facility], spoke with Angela, a follow up appointment is scheduled for July at 1:[address] Amor. Clinic will call patient with appointment information.
--- NOTE | 2019-07-18 12:37 | DCPLANNER ---
Patient did attend appointment scheduled for 07.17.19 with [facility].
== END 2019-07-15 16:56 | disposition home or self-care (01) ==
PROVIDERS: Emergency Provider Emergency Medicine; Family Provider Internal Medicine; PCP Internal Medicine
DX: I11.0 Hypertensive heart disease with heart failure (principal); I50.40 Unspecified combined systolic (congestive) and diastolic (congestive) heart failure; I25.10 Atherosclerotic heart disease of native coronary artery without angina pectoris; I42.9 Cardiomyopathy, unspecified; E78.5 Hyperlipidemia, unspecified; E03.9 Hypothyroidism, unspecified; I48.0 Paroxysmal atrial fibrillation; F17.210 Nicotine dependence, cigarettes, uncomplicated; Z79.01 Long term (current) use of anticoagulants; Z95.0 Presence of cardiac pacemaker; Z86.73 Personal history of transient ischemic attack (TIA), and cerebral infarction without residual deficits
CPT/HCPCS: 12345; 99281

== ENCOUNTER 2019-07-23 03:23 | Inpatient (IN) | payer MEDICARE, SELFPAY ==
[2019-07-23] VITALS (19 sets, daily range): BP systolic 115–157; BP diastolic 58–97; PULSE 57–78; RESP 14–27; TEMP 36.3–37; O2SAT 91–98; BMI 37.3
--- NOTE | 2019-07-23 03:25 | ED_ITS ---
Entered by Patsy Zamarripa, acting as scribe for HPI - Chest Pain General: Chief Complaint: Chest Pain Stated Complaint: Chest Pain Time Seen by Provider: 07/23/19 03:25 Source: patient and EMS Mode of arrival: EMS Limitations: no limitations History of Present Illness: HPI narrative: 59 yo m came to the er by [facility] for chest pain. 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 Pt said that he started having tight chest pains around 2200 - 2300. Pt said that he has had an angiograhm in the past. Pt said that he does smoke at this time. Pt said that he has been running a mild fever, a productive cough with green phlegm. MD complaint: chest pain Timing of current episode: constant Prior episodes: Yes Onset: during rest Pain location: substernal Pain radiation: none Severity: mild Quality: tightness Relieving factors: nitroglycerin Exacerbating factors: nothing Associated symptoms: Reports fever(s); Deny abdominal pain or dyspnea Treatment prior to arrival: aspirin (324mg at home ) and nitroglycerin (3 nitro before ems was called and 1 nitro in route to er) Risk Factors: Coronary artery disease risk factors: none Thoracic aortic dissection risk factors: none Review of Systems General: Reports: other (negative unless marked) Const: Reports: fever ENMT: Denies: throat pain, ear pain, nasal discharge or nasal congestion Card: Reports: chest pain Resp: Reports: productive cough; Denies: shortness of breath GI: Denies: abdominal pain : Denies: flank pain, painful urination, urinary frequency or urinary urgency Skin/Breast: Denies: rash or itching PFSH ED PFSH: Medical History Anemia CAD in [place] artery Cardiomyopathy CHF (congestive heart failure) Combined systolic and diastolic. LVEF by LV gram in 2017 was 40%. CVA (cerebral vascular accident) HTN (hypertension) Hyperlipidemia Hypotension Hypothyroid Nicotine dependence, cigarettes, with unspecified nicotine-induced disorders Orthostasis SALONI (obstructive sleep apnea) Pacemaker 2014- dual chamber Panlobular emphysema Paroxysmal A-fib PVD (peripheral vascular disease) Vitamin B12 deficiency Surgical History H/O coronary angioplasty 2013 H/O reduction of closed fracture ankle History of cardiac radiofrequency ablation (RFA) 26875 Hx of appendectomy Status cardiac pacemaker Family History Father Myocardial infarct Mother Myocardial infarct Other Family history of premature coronary artery disease Hypertension Social History Smoking and tobacco status: current some day smoker cigarettes Packs smoked per day: 1 Years cigarettes smoked: 40 Quit status (tobacco): has tried quititng Second hand smoke exposure: Yes Smoking risk assessment/counseling performed?: Yes Alcohol intake: former Year of sobriety/quit date alcohol: 1979 Lives independently: Yes Household members: spouse Marital status: Current occupational status: disabled History of recent travel: No Current gender identity: Male Physical Exam Const: COMMON NORMALS: no apparent distress GENERAL APPEARANCE: cooperative and comfortable ORIENTATION/CONSCIOUSNESS: Yes awake, Yes oriented to person, Yes oriented to place and Yes oriented to time HENMT: COMMON NORMALS: normocephalic, head/scalp atraumatic, hearing grossly normal bilaterally, external ears normal, EAC's normal, TM's normal bilaterally, nasal mucous membranes and turbinates normal, moist oral mucous membranes and oropharynx normal HEAD & SCALP: normocephalic, atraumatic and cyanosis of lips/distal nose (Lips) FACE & SINUS: acrocyanosis present (Lips) NOSE: nasal mucous membranes and turbinates normal EXTERNAL EAR: Yes external ears normal EXTERNAL AUDITORY CANAL: EAC's normal TYMPANIC MEMBRANE: TM's normal bilaterally Eye: COMMON NORMALS: PERRL, EOMs intact bilaterally, conjunctivae normal and no scleral icterus CONJUNCTIVA: Yes conjunctivae normal PUPIL: Yes PERRL Neck/C-Spine: COMMON NORMALS: full ROM, no lymphadenopathy, supple and no JVD Lymph: LYMPHATIC: no lymphadenopathy noted and no lymphedema noted Resp: COMMON NORMALS: normal respiratory effort, no retractions, no use of ac cessory muscles and clear to auscultation bilaterally AUSCULTATION: clear to auscultation bilaterally Cardio: COMMON NORMALS: no JVD, regular rate, regular rhythm and no murmurs RATE: regular rate RHYTHM: regular rhythm GI: COMMON NORMALS: soft to palpation and no hepatosplenomegaly AUSCULTATION: Yes normoactive bowel sounds PALPATION: Yes soft, No tender, No guarding and Yes no hepatosplenomegaly Extremity: COMMON NORMALS: normal to inspection, normal capillary refill, no clubbing, cyanosis or edema, no calf tenderness and no pedal edema Neuro: SENSORIUM/ORIENTATION: Yes oriented to person, Yes oriented to place and Yes oriented to time Skin: COMMON NORMALS: no rashes or lesions noted GENERAL SKIN EXAM: no rashes or lesions noted Course ED course: Admit the patient for rule out. Discussed with Dr. Dumont. Vital Signs: Vital signs: Vital Signs Temperature 97.5 F L 07/24/19 14:46 Pulse Rate 63 07/24/19 14:46 Respiratory Rate 22 H 07/24/19 14:46 Blood Pressure 110/81 07/24/19 14:46 Pulse Oximetry 100 07/24/19 14:46 MDM - Chest Pain Lab Data: Labs: Lab Results 07/23/19 07/23/19 07/23/19 Range/Units 03:30 03:30 03:30 WBC 10.3 H (4.0-10.0) 10^3/ uL RBC 4.45 (4.1-5.3) 10^6/u L Hgb 11.0 L (11.7-16.6) g/dL Hct 37.2 L (42.0-52.0) % MCV 83.6 (80-94) fL MCH 24.7 L (28.0-34.0) pg MCHC 29.6 L (30.0-36.0) g/dL RDW 21.4 H (12.1-15.1) % Plt Count 259 (130-400) 10^3/c mm MPV 9.6 (7.4-10.4) fL Neut % (Auto) 58.4 % Lymph % (Auto) 28.6 % Stephens % (Auto) 9.3 % Eos % (Auto) 2.5 % Baso % (Auto) 1.0 % Neut # (Auto) 6.0 (1.8-7.7) 10^3/u L Lymph # (Auto) 3.0 (0.8-4.8) 10^3/u L Stephens # (Auto) 1.0 H (0.2-0.9) 10^3/u L Eos # (Auto) 0.3 (0.0-0.8) 10^3/u L Baso # (Auto) 0.1 (0.0-0.1) 10^3/u L Nucleated RBC % (a uto) 0.2 % Nucleated RBCs # 0.0 /100WBC PT (10.5-13.3) SECO NDS INR (0.8-1.2) Sodium 134 L (136-145) mmol/L Potassium 4.0 (3.5-5.1) mmol/L Chloride 98 (98-107) mmol/L Carbon Dioxide 27 (22-29) mmol/L Anion Gap 13.0 (5-19) BUN 14 (8-23) mg/dL Creatinine 1.1 (0.7-1.2) mg/dL GFR Calculation 68.1 L (90-130) mL/min Glucose 105 (65-115) mg/dL Calculated Osmolal ity 275 L (285-295) mOsm/k g Calcium 9.2 (8.5-10.5) mg/dL Total Bilirubin 1.6 H (0.15-1.2) mg/dL AST 34 (0-40) U/L ALT 17 (0-41) U/L Alkaline Phosphata se 182 H (40-130) IU/L Troponin T Baselin e 35 H (0-15) ng/mL NT-Pro-B Natriuret Pep (0-125) pg/mL Total Protein 8.0 (6.6-8.7) g/dL Albumin 3.1 L (3.5-5.2) g/dL Globulin 4.9 H (1.3-4.6) g/dL TSH (0.27-4.20) uIU/ mL 07/23/19 07/23/19 07/23/19 Range/Units 03:30 03:30 03:30 WBC (4.0-10.0) 10^3/ uL RBC (4.1-5.3) 10^6/u L Hgb (11.7-16.6) g/dL Hct (42.0-52.0) % MCV (80-94) fL MCH (28.0-34.0) pg MCHC (30.0-36.0) g/dL RDW (12.1-15.1) % Plt Count (130-400) 10^3/c mm MPV (7.4-10.4) fL Neut % (Auto) % Lymph % (Auto) % Stephens % (Auto) % Eos % (Auto) % Baso % (Auto) % Neut # (Auto) (1.8-7.7) 10^3/u L Lymph # (Auto) (0.8-4.8) 10^3/u L Stephens # (Auto) (0.2-0.9) 10^3/u L Eos # (Auto) (0.0-0.8) 10^3/u L Baso # (Auto) (0.0-0.1) 10^3/u L Nucleated RBC % (a uto) % Nucleated RBCs # /100WBC PT 17.60 H (10.5-13.3) SECO NDS INR 1.40 H (0.8-1.2) Sodium (136-145) mmol/L Potassium (3.5-5.1) mmol/L Chloride (98-107) mmol/L Carbon Dioxide (22-29) mmol/L Anion Gap (5-19) BUN (8-23) mg/dL Creatinine (0.7-1.2) mg/dL GFR Calculation (90-130) mL/min Glucose (65-115) mg/dL Calculated Osmolal ity (285-295) mOsm/k g Calcium (8.5-10.5) mg/dL Total Bilirubin (0.15-1.2) mg/dL AST (0-40) U/L ALT (0-41) U/L Alkaline Phosphata se (40-130) IU/L Troponin T Baselin e (0-15) ng/mL NT-Pro-B Natriuret Pep 2202 H (0-125) pg/mL Total Protein (6.6-8.7) g/dL Albumin (3.5-5.2) g/dL Globulin (1.3-4.6) g/dL TSH 16.23 H (0.27-4.20) uIU/ mL Discharge Plan Discharge Patient Disposition: Admitted As Inpatient Admit Provider: Lita Dumont Condition: Stable Discharge Orders: Discharge Order (Routine); Ordered 07/24/19 Ordered By: Julianna Uribe Referrals: Ahmet Jasso MD [Primary Care Provider] - 4-7 days ([facility] will be calling you to set a hospital followup with Dr. Jasso to be seen in 4 to 7 days. If you haven't heard from them by tomorrow afternoon, please call them at [phone]) Yomi Amor MD [Physician] - 2 weeks (You have a cardiology followup with Dr. Amro at [facility] on August 18 at 3:45pm. Any questions, please call them at [phone]) Discharge Diet: Cardiac and Low Salt Discharge Activity: Increase activity as tolerated Patient Instructions: Atrial Fibrillation, Lisinopril (By mouth), Levothyroxine (By mouth), Warfarin (By mouth), Influenza Virus Vaccine (Injection), Atorvasta tin (By mouth), Heart Failure (DC), Coronary Artery Disease (DC), Chest Pain (DC), Pacemaker (GEN), Hypertrophic Cardiomyopathy (DC), Sleep Apnea Syndrome (DC), How to Stop Smoking (DC), Cigarette Smoking and Your Health (GEN), Emphysema (DC), Dyspnea (GEN) Additional Instructions: Continue Coumadin, due to cost, and recheck INR at PCP office Started on lisinopril 2.5 mg daily Continue on torsemide and metolazone as previously prescribed. Stop taking simvastatin and start taking atorvastatin, cholesterol medication. Start taking levothyroxine 25 mcg daily and follow-up with your primary care provider for recheck TSH Follow a 2 g sodium restriction per 24 hours Follow a 1500 mL fluid restriction per 24 hours Monitor your daily weight. For any weight gain more than 2 to 3 pounds in a 24- hour period please call your physician. For any chest pain or shortness of breath please present to the emergency department Follow-up with your primary care provider in 4 to 7 days Follow-up with cardiology in 2 to 4 weeks or as soon as first appointment is available Forms: Work/School Release Discharge Date/Time: 07/23/19 07:33 Coding Level of Care Code ED Isotope Hydrologist for Chg Fwd Exam Comprehensive The documentation recorded by the Dallin wilson Stephanie Lyn, accurately r eflects the service I personally performed and the decisions made by , Conrad Holland DO Jul 23, 2019 03:23
--- NOTE | 2019-07-23 03:36 | XR_ITS ---
WS: [id number] XR chest 1V portable [id number] REASON FOR EXAM: dyspnea/cough FINDINGS: Gross cardiomegaly changes are noted. Dual electrode pacemaker extends from the left side. The lung freed show no definite pneumonia, pulmonary edema, pleural effusion. The hilum and apices are normal. XR/XR chest 1V portable [id number] IMPRESSION: Gross cardiomegaly Dual electrode pacemaker.
--- NOTE | 2019-07-23 03:36 | ECG_ITS ---
Measurements Intervals [place] Rate: 62 P: [place]: 0 QRS: -77 QRSD: 94 T: 157 QT: 424 QTc: 433 Intermittent Paced RHYTHM baseline atrial fibrillation ELECTRONIC VENTRICULAR PACEMAKER -- CONTOUR ANALYSIS BASED ON INTRINSIC RHYTHM MARKED LEFT AXIS DEVIATION [QRS AXIS < -30] ANTERIOR MYOCARDIAL INFARCTION [40+ ms Q WAVE AND/OR ST/T ABNORMALITY IN V3/V4], PRO Electronically Signed On 07-24-2019 12:44:06 CDT by Zahida Amor [email or web address]
[2019-07-23 03:45] LABS: Basophils # 0.1 10^3/uL (0.0-0.1); Eosinophils # 0.3 10^3/uL (0.0-0.8); Eosinophils % 2.5 %; Hematocrit 37.2 % (42.0-52.0); Lymphocytes % 28.6 %; Mean Corpuscular HGB Conc 29.6 g/dL (30.0-36.0); Mean Corpuscular Hemoglobin 24.7 pg (28.0-34.0); Mean Corpuscular Volume 83.6 fL (80-94); Mean Platelet Volume 9.6 fL (7.4-10.4); Monocytes % 9.3 %; Neutrophils % 58.4 %; Nucleated Red Blood Cells % 0.2 %; Platelet Count 259 10^3/cmm (130-400); Red Blood Count 4.45 10^6/uL (4.1-5.3); Red Cell Distribution Width 21.4 % (12.1-15.1); White Blood Count 10.3 10^3/uL (4.0-10.0)
[2019-07-23 03:56] LABS: Alanine Aminotransferase 17 U/L (0-41); Albumin Level 3.1 g/dL (3.5-5.2); Alkaline Phosphatase 182 IU/L (40-130); Aspartate Amino Transferase 34 U/L (0-40); Blood Urea Nitrogen 14 mg/dL (8-23); Calcium 9.2 mg/dL (8.5-10.5); Carbon Dioxide 27 mmol/L (22-29); Chloride 98 mmol/L (98-107); Globulin 4.9 g/dL (1.3-4.6); Glomerular Filtration Rate 68.1 mL/min (90-130); Glucose 105 mg/dL (65-115); Osmolality Calculated 275 mOsm/kg (285-295); Sodium 134 mmol/L (136-145); Total Bilirubin 1.6 mg/dL (0.15-1.2)
[2019-07-23 03:58] LABS: Troponin(5th) Baseline 35 ng/mL (0-15)
[2019-07-23] MEDS: sodium chloride 0.9% 1,000 ML 100 ML IV (05:24)
[2019-07-23] MEDS: nitroglycerin 1 gm/inch oint Pkt 0.5 INCH TOPICAL (05:24)
--- NOTE | 2019-07-23 05:36 | ECG_ITS ---
Measurements Intervals [place] Rate: 66 P: NE: 0 QRS: -75 QRSD: 87 T: 158 QT: 380 QTc: 400 Paced rhythm with normal capture ELECTRONIC VENTRICULAR PACEMAKER -- CONTOUR ANALYSIS BASED ON INTRINSIC RHYTHM Electronically Signed On 07-24-2019 12:47:44 CDT by Zahida Amor [email or web address]
[2019-07-23 06:27] LABS: Troponin 5 2HR 36.15 ng/mL (0-15); Troponin 5 2HR Delta 1.15 ABS# (0-10)
--- NOTE | 2019-07-23 07:00 | PC.NURSE ---
Per report from BERYL Agarwal, pt will not be admitted to ICU until dayshift d/t orders from Dr Dumont. Will attempt to call report when orders are in.
--- NOTE | 2019-07-23 07:06 | PC.NURSE ---
Pt given water per request. Pt and updated on wait for admission.
--- NOTE | 2019-07-23 09:22 | P.HP_ITS ---
Providers/Chief Complaint Admitting Physician: Julianna Uribe DO Primary Care Provider: Ahmet Jasso MD Chief Complaint: chest pain History of Present Illness Leroy Gautam is a 59 year old male with a past medical history of hypertension, coronary artery disease and interstitial lung disease that presented to the emergency department for chest pain. Patient reported that he has been worsening chest pain over the past week with increasing dyspnea on exertion. He stated that this morning he was in his home when he began having pain located in the center of his chest, described as a squeezing sensation. He stated that he got up to walk around and any activity made his symptoms worse. He came into the ER for further evaluation and treatment. Patient denies any recent illness, no fevers or chills. He reports chronic productive cough, no change, denies any hemoptysis Review of Systems Const: Denies: fever or chills Eyes: Denies: change in vision ENMT: Denies: nasal congestion Card: Reports: chest pain and edema; Denies: palpitations Resp: Reports: shortness of breath and productive cough; Denies: coughing up blood GI: Denies: abdominal pain, nausea, vomiting, diarrhea, constipation, blood in stool or black tarry stool : Denies: painful urination or blood in urine Musc: Denies: extremity pain or muscle cramps Skin/Breast: Denies: rash or new lesion Neuro: Denies: headache or dizziness Psych: Denies: anxiety or depression Endo: Denies: excessive urination or hot flashes Lauri/Lymph: Denies: easy bruising or easy bleeding Medications/Allergies Allergies Allergy/AdvReac Type Severity Reaction Status Date / Time No Known Allergies Allergy Verified 06/30/19 11:25 PFSH Acute PFSH: Medical History Anemia CAD in [place] artery Cardiomyopathy CHF (congestive heart failure) Combined systolic and diastolic. LVEF by LV gram in 2017 was 40%. CVA (cerebral vascular accident) HTN (hypertension) Hyperlipidemia Hypotension Hypothyroid Nicotine dependence, cigarettes, with unspecified nicotine-induced disorders Orthostasis SALONI (obstructive sleep apnea) Pacemaker 2014- dual chamber Panlobular emphysema Paroxysmal A-fib PVD (peripheral vascular disease) Vitamin B12 deficiency Surgical History H/O coronary angioplasty 2013 H/O reduction of closed fracture ankle History of cardiac radiofrequency ablation (RFA) 04961 Hx of appendectomy Status cardiac pacemaker Family History Father Myocardial infarct Mother Myocardial infarct Other Family history of premature coronary artery disease Hypertension Social History Smoking and tobacco status: current some day smoker cigarettes Packs smoked per day: 1 Years cigarettes smoked: 40 Quit status (tobacco): has tried quititng Second hand smoke exposure: Yes Smoking risk assessment/counseling performed?: Yes Alcohol intake: former Year of sobriety/quit date alcohol: 1979 Lives independently: Yes Household members: spouse Marital status: Current occupational status: disabled History of recent travel: No Current gender identity: Male Vitals/I&O/Wt Last Vital Signs Temp 98.4 F 07/23/19 07:20 Pulse 70 07/23/19 08:30 Resp 20 H 07/23/19 08:30 BP 144/91 07/23/19 08:30 Pulse Ox 91 07/23/19 08:30 Weight last 48 hrs Weight 121.563 kg Physical Exam Const: COMMON NORMALS: oriented x3 and alert GENERAL APPEARANCE: cooperative ORIENTATION/CONSCIOUSNESS: Yes awake, Yes oriented to person, Yes oriented to place and Yes oriented to time HENMT: COMMON NORMALS: normocephalic and head/scalp atraumatic HEAD & SCALP: normocephalic and atraumatic Eye: COMMON NORMALS: PERRL PUPIL: Yes PERRL Neck/C-Spine: COMMON NORMALS: supple GENERAL: Yes normal visual inspection Resp: COMMON NORMALS: normal respiratory effort EFFORT & INSPECTION: Yes able to speak in complete sentences AUSCULTATION: clear to auscultation bilaterally, no rhonchi and no wheezes OTHER: Prolonged expiratory phase, diminished breath sounds bilaterally with no appreciable wheezing or rhonchi Cardio: COMMON NORMALS: regular rate, regular rhythm and no murmurs RATE: regular rate RHYTHM: regular rhythm GI: COMMON NORMALS: soft to palpation and non-tender INSPECTION: No abdominal distension AUSCULTATION: Yes normoactive bowel sounds PALPATION: Yes soft Extremity: NARRATIVE EXTREMITY EXAM: Bilateral lower extremity edema, 2+ Neuro: COMMON NORMALS: oriented x3, CN's II-XII intact bilaterally, moves all extremities and no focal motor deficits SENSORIUM/ORIENTATION: Yes alert, Yes oriented to person, Yes oriented to place and Yes oriented to time SPEECH: speech normal Psych: COMMON NORMALS: mental status grossly normal and cooperative Skin: COMMON NORMALS: no rashes or lesions noted GENERAL SKIN EXAM: no rashes or lesions noted Data : 07/23/19 03:30 07/23/19 03:30 A&P Assessment and plan (1) Chest pain: Exertional chest pain and dyspnea Patient had last cardiac cath in September 2016 which showed stent to RCA and LAD with mid to distal 40% stenosis at that time. He has known coronary artery disease and systolic congestive heart failure with last echocardiogram showing LVEF of 30%. He did have a stress test in 2017 which did show some areas of ischemic change, however he elected to have medical management at that time. Discussed with patient today and he is okay with cardiology consultation and further intervention if indicated. Consultation to Dr. Amor, appreciate recommendations and assistance in patient's care TOBIAS as needed for pain Status: Acute Code(s): R07.9 - Chest pain, unspecified (2) CAD in [place] artery: Patient is on aspirin, metoprolol, simvastatin at home We will increase to high intensity statin Status: Acute Code(s): I25.10 - Atherosclerotic heart disease of [place] coronary artery without angina pectoris (3) Paroxysmal A-fib: Currently in paced rhythm Continue on amiodarone, metoprolol, warfarin. Checking stat INR Status: Acute Code(s): I48.0 - Paroxysmal atrial fibrillation (4) SALONI (obstructive sleep apnea): Status: Acute Code(s): G47.33 - Obstructive sleep apnea (adult) (pediatric) (5) CHF (congestive heart failure): Last echocardiogram from November 2018 showed LVEF of 30% Patient is on metolazone 2.5 mg twice daily, metoprolol, torsemide Has not been on EMPERATRIZ inhibitor or ARB in the past due to renal function Fluid overloaded on IV lasix at this time Status: Chronic Code(s): I50.9 - Heart failure, unspecified (6) Panlobular emphysema: Not on any home oxygen, continues to smoke half to 1 pack/day Status: Acute Code(s): J43.1 - Panlobular emphysema Attestations Medical Necessity Statement*: Patient requires hospitalization due to chest pain with known coronary artery disease and abnormal stress test in 2018 and also systolic congestive heart failure. Expected stay greater than 2 midnights Coding Level of Care Code Acute Child Care Group Leader for [facility] Fwd Exam Comprehensive Diagnoses Chest pain R07.9 CAD in [place] artery I25.10 Paroxysmal A-fib I48.0 SALONI (obstructive sleep apnea) G47.33 CHF (congestive heart failure) I50.9 Panlobular emphysema J43.1
--- NOTE | 2019-07-23 09:36 | ECG_ITS ---
Measurements Intervals [place] Rate: 57 P: GA: 0 QRS: -75 QRSD: 89 T: 123 QT: 440 QTc: 429 Ventricular paced rhythm with normal capture Baseline atrial fibrillation ELECTRONIC VENTRICULAR PACEMAKER -- CONTOUR ANALYSIS BASED ON INTRINSIC RHYTHM INFERIOR MYOCARDIAL INFARCTION , PROBABLY OLD [40+ ms Q WAVE AND/OR ST/T ABNORMALITY IN II/aVF] Electronically Signed On 07-24-2019 12:48:43 CDT by Zahida Amor [id number]
[2019-07-23 10:07] LABS: Troponin 5 6HR 34.24 ng/mL (0-15)
[2019-07-23 10:16] LABS: Troponin 5 6HR Delta -0.76 ng/L (0-12)
[2019-07-23 10:29] LABS: NT Pro B Type Natriuretic Pept 2202 pg/mL (0-125)
--- NOTE | 2019-07-23 10:39 | P.CONIM_ITS ---
Providers/Reason For Consult Consulting Physican/Specialty*: Cardiology Reason for Consult*: Chest pain Attending Physician: Julianna Uribe DO Primary Care Provider: Ahmet Jasso MD History of Present Illness History of Present Illness 67-year-old white male, known to have essential hypertension, coronary disease, status post stent to right coronary artery, who is admitted for evaluation A precordial chest pain. Cardiac patient he was doing well until about a week prior to presentation since he went has been having problem with decreased excess tolerance patient was still short of breath on exertion. Patient states that he is worse than walking upgrade. He also reports intermittent chest pain, which is retrosternal tightness, non-radiating with no associated nausea vomiting diaphoresis. As his symptoms continued, he presented with you for further evaluation and was admitted under hospice service cardiology consult was requested for recommendation. Review of Systems General: Reports: 10 or more systems reviewed and unremarkable except in HPI and below Const: Denies: fever, chills, change in appetite or change in weight ENMT: Denies: nasal discharge or post nasal drip Card: Reports: other Resp: Reports: shortness of breath and other GI: Denies: abdominal pain, nausea, vomiting or heartburn/indigestion : Denies: flank pain, painful urination or urinary frequency Musc: Denies: neck pain or back pain Skin/Breast: Denies: rash or itching Neuro: Denies: weakness in extremities or difficulty walking Psych: Denies: mood swings Endo: Denies: cold intolerance or excessive sweating Meds/Allergies Home Medications and Allergies Home Medications Medication Instructions Recorded Confirmed Type aspirin 81 mg tablet,delayed 81 mg PO DAILY tab 05/01/19 07/17/19 History release metolazone 2.5 mg tablet 2.5 mg PO BID PRN tab 05/01/19 07/17/19 History nitroglycerin 0.4 mg sublingual 0.4 mg SUBLINGUAL Q5M PRN 05/01/19 07/17/19 History tablet potassium chloride 20 mEq 20 meq PO BID PRN 05/01/19 07/17/19 History tablet,extended release simvastatin 40 mg tablet 40 mg PO DAILY tab 05/01/19 07/17/19 History warfarin 5 mg tablet 5 mg PO DAILY tab 05/01/19 07/17/19 History warfarin 1 mg tablet 1 mg PO DAILY #90 tab 07/08/19 07/17/19 Rx albuterol sulfate 2.5 mg INHALATION Q4H PRN 07/17/19 07/17/19 History amiodarone 200 mg tablet 200 mg PO DAILY 30 Days #30 tab 07/17/19 07/17/19 Rx metoprolol succinate 50 mg 50 mg PO .HS 30 Days #30 tab 07/17/19 07/17/19 Rx tablet,extended release 24 hr torsemide 100 mg tablet 100 mg PO DAILY tab 07/17/19 07/17/19 History Allergies Allergy/AdvReac Type Severity Reaction Status Date / Time No Known Allergies Allergy Verified 06/30/19 11:25 Current Medications Current Medications Generic Name Dose Route Start Last Admin Trade Name Freq PRN Reason Stop Dose Admin Sodium Chloride 1,000 mls @ 100 mls/hr 07/23/19 05:16 07/23/19 05:24 Sodium Chloride 0.9% IV 100 mls/hr .Q10H CARLOS Administration PFSH Acute PFSH: Medical History Anemia CAD in [place] artery Cardiomyopathy CHF (congestive heart failure) Combined systolic and diastolic. LVEF by LV gram in 2017 was 40%. CVA (cerebral vascular accident) HTN (hypertension) Hyperlipidemia Hypotension Hypothyroid Nicotine dependence, cigarettes, with unspecified nicotine-induced disorders Orthostasis SALONI (obstructive sleep apnea) Pacemaker 2013- dual chamber Panlobular emphysema Paroxysmal A-fib PVD (peripheral vascular disease) Vitamin B12 deficiency Surgical History H/O coronary angioplasty 2013 H/O reduction of closed fracture ankle History of cardiac radiofrequency ablation (RFA) 66403 Hx of appendectomy Status cardiac pacemaker Family History Father Myocardial infarct Mother Myocardial infarct Other Family history of premature coronary artery disease Hypertension Social History Smoking and tobacco status: current some day smoker cigarettes Packs smoked per day: 1 Years cigarettes smoked: 40 Quit status (tobacco): has tried quititng Second hand smoke exposure: Yes Smoking risk assessment/counseling performed?: Yes Alcohol intake: former Year of sobriety/quit date alcohol: 1979 Lives independently: Yes Household members: spouse Marital status: Current occupational status: disabled History of recent travel: No Current gender identity: Male Vitals/I&O/Wt Last Vital Signs Temp 98.4 F 07/23/19 07:20 Pulse 70 07/23/19 08:30 Resp 20 H 07/23/19 08:30 BP 144/91 07/23/19 08:30 Pulse Ox 91 07/23/19 08:30 Weight last 48 hrs Weight 268 lb Physical Exam Const: COMMON NORMALS: no apparent distress and oriented x3 GENERAL APPEARANCE: cooperative and comfortable HENMT: COMMON NORMALS: normocephalic, head/scalp atraumatic, EAC's normal, nasal mucous membranes and turbinates normal and oropharynx normal HEAD & SCALP: normocephalic and atraumatic NOSE: nasal mucous membranes and turbinates normal EXTERNAL AUDITORY CANAL: EAC's normal Eye: COMMON NORMALS: PERRL and EOMs intact bilaterally PUPIL: Yes PERRL Neck/C-Spine: COMMON NORMALS: full ROM and no JVD Lymph: LYMPHATIC: no lymphadenopathy noted Resp: COMMON NORMALS: normal respiratory effort, no use of accessory muscles and clear to auscultation bilaterally AUSCULTATION: clear to auscultation bilaterally and diminished lung sounds OTHER: Bilateral crackles noted Cardio: COMMON NORMALS: no JVD, S1 normal heart sound, S2 normal heart sound, no gallops and no murmurs JUGULAR VENOUS DISTENTION: no JVD HEART SOUNDS: S1 normal and S2 normal GI: COMMON NORMALS: normal to inspection, nondistended, normoactive bowel sounds, soft to palpation, non-tender, no hepatosplenomegaly and no masses PALPATION: Yes soft, No guarding, No rigid and Yes no hepatosplenomegaly Extremity: COMMON NORMALS: normal to inspection; negative for no pedal edema NARRATIVE EXTREMITY EXAM: Bilateral edema noted Neuro: COMMON NORMALS: oriented x3 A&P Assessment and plan (1) CAD in [place] artery: 1. Regarding patient's current presentation, will check troponin every 8x3. 2. will discuss options with the patient regarding invasive or noninvasive evaluation including cardiac catheterization versus cardiac stress testing. 3. We will require echocardiogram for LV function evaluation Status: Acute Code(s): I25.10 - Atherosclerotic heart disease of [place] coronary artery without angina pectoris (2) Nicotine addiction: 1. Would encourage patient to consider smoke cessation. 2. Would include advised patient regarding long and short-term implication of nicotine abuse Status: Acute Code(s): F17.200 - Nicotine dependence, unspecified, uncomplicated (3) Paroxysmal A-fib: 1. Would continue close telemetry monitoring. 2. We will discussed with patient guarding option of anticoagulation. Status: Acute Code(s): I48.0 - Paroxysmal atrial fibrillation (4) Cardiomyopathy: 1. We will require echocardiogram valuation evaluation. 2. Will optimize EMPERATRIZ inhibitor and beta-krista and consider Aldactone if EF is less than 35%. Status: Acute Code(s): I42.9 - Cardiomyopathy, unspecified (5) CHF (congestive heart failure): 1. We will restrict p.o. fluids 2000 cc/day 2. We will hold p.o. diuretics, start IV Lasix 20 mg every [address] a Pleitez's catheter for close I's and O's monitoring daily weights. 4. Decrease salt intake, educated regarding weight gain on an outpatient basis. Status: Chronic Code(s): I50.9 - Heart failure, unspecified Coding Level of Care Code Acute Process Assistant for [facility] Fwd Exam Comprehensive Diagnoses CAD in [place] artery I25.10 Nicotine addiction F17.200 Paroxysmal A-fib I48.0 Cardiomyopathy I42.9 CHF (congestive heart failure) I50.9
[2019-07-23] MEDS: aspirin 81 mg EC Tablet PO (10:58)
[2019-07-23] MEDS: amiodarone 200 mg Tablet PO (10:58)
--- NOTE | 2019-07-23 11:14 | USCV_ITS ---
Leroy Gautam Age: 59 Gender: M : 1960 Exam Date: 07/23/2019 15:34 Ordering Phys: Zahida Amor MD ([email or web address]) Technologist: Adalberto Lei Exam Location: [facility] [place] Indication: CHEST PAIN BP: 110 / 80 HR: 50 Rhythm: Sinus Technical Quality: Very technically difficult study MEASUREMENTS (Male / Female) Normal Values 2D ECHO LV Diastolic Diameter PLAX 3.6 cm 4.2 - 5.9 / 3.9 - 5.3 cm LV Systolic Diameter PLAX 3.5 cm IVS Diastolic Thickness 1.1 cm 0.6 - 1.0 / 0.6 - 0.9 cm IVS Systolic Thickness 1.4 cm LVPW Diastolic Thickness 1.0 cm 0.6 - 1.0 / 0.6 - 0.9 cm LVPW Systolic Thickness 1.4 cm LVOT Diameter 2.0 cm LV Ejection Fraction 2D Teich 5.1 % LV Ejection Fraction MOD 2C 33.0 % LV Ejection Fraction 2C AL 31.0 % LA Diameter 4.1 cm LA Width 5.9 cm LA Height 6.9 cm RA Width 5.7 cm RA Height 6.4 cm M-MODE LV Diastolic Diameter MM 6.3 cm 4.2 - 5.9 / 3.9 - 5.3 cm LV Systolic Diameter MM 4.6 cm LV Ejection Fraction MM Teich 50.2 % IVS Diastolic Thickness MM 1.1 cm 0.6 - 1.0 / 0.6 - 0.9 cm IVS Systolic Thickness MM 1.4 cm LVPW Diastolic Thickness MM 1.2 cm 0.6 - 1.0 / 0.6 - 0.9 cm LVPW Systolic Thickness MM 1.6 cm RV Diastolic Diameter MM 2.6 cm Aortic Annulus Diameter 3.3 cm LA Ao Ratio MM 1.3 MV E Point Septal Separation 2.1 cm DOPPLER AV Peak Velocity 163.0 cm/s LVOT Peak Velocity 112.0 cm/s AV Area Cont Eq vti 2.1 cm squared AV Area Cont Eq pk 2.2 cm squared MV Area PHT 2.4 cm squared Mitral E to A Ratio 1.3 MV E' Velocity 9.0 cm/s Mitral E to MV E' Ratio 13.9 Mitral E to LV E' Lateral Ratio 10.7 Mitral E to LV E' Septal Ratio 20.0 TR Peak Velocity 290.0 cm/s TR Peak Gradient 33.6 mmHg FINDINGS Left Ventricle . Mildly increased left ventricular diastolic diameter. Mildly increased left ventricular diastolic volume. Severely increased left ventricular systolic volume. Moderately decreased left ventricular ejection fraction. EF 30 % Poorly visualized. Wall motion abnormality cannot be commented on as LV is poorly visualized. Right Ventricle Moderately increased right ventricular size. Mildly decreased right ventricular systolic function. Right Atrium Severely increased right atrial size. Left Atrium Severely increased left atrial size. Mitral Valve Mitral valve not well visualized. No mitral valve stenosis. Trace mitral valve regurgitation. Aortic Valve Aortic valve not well visualized. No aortic valve stenosis. No aortic valve regurgitation. Tricuspid Valve Tricuspid valve not well visualized. No tricuspid valve regurgitation. No tricuspid valve stenosis. Pulmonic Valve Pulmonic valve not well visualized. Pericardium No pericardial or pleural effusion. Aorta Aorta not well visualized. CONCLUSIONS LV dysfunction- with diminished ejection fraction of 30 %. Technically limited study. No significant valve abnormalities. Cesar Amor MD (Electronically Signed) Final Date: 23 July 2019 16:17 S
--- NOTE | 2019-07-23 11:25 | PC.NURSE ---
This nurse went in to place Pleitez per verbal orders given at bedside By Dr. Kg Amor; patient very strongly refused to have a Pleitez placed Dr. Uribe notified
[2019-07-23] MEDS: FUROsemide 10 mg/mL SDV 2mL 20 MG IVP ×2 (11:30→20:00)
[2019-07-23 12:48] LABS: Thyroid Stimulating Hormone 16.23 uIU/mL (0.27-4.20)
[2019-07-23] MEDS: nicotine 21 mg Patch 1 PATCH TRANSDERMA (14:41)
--- NOTE | 2019-07-23 16:15 | PC.NURSE ---
Upon reviewing medications with spouse and patient at bed side; spouse became quite upset with this nurse asking about medication stating they should all be in the computer explained to spouse that I had 3 list all of which did not match. I showed spouse all the list and she handed me the one that I obtained from Dr Jasso's office and stated this one is not right at all throw it way. I handed her the list that showed what we have listed in the computer and stated this one looks right and he takes furosemide not torsemide Upon reviewing medication list Torsemide 100mg is on the list that she stated to be correct. A call was placed to the spouse after she left the hospital to confirm what she had previously told me; Spouse became very upset as she stated just wait till I get home and I will call and spell it to you, Lashae! will await return phone call to confirm medications.
[2019-07-23] MEDS: metoprolol succinate ER (24 HR) 50 mg Tablet PO (20:42)
[2019-07-23] MEDS: atorvastatin 40 mg Tablet PO (20:42)
[2019-07-24] VITALS (7 sets, daily range): BP systolic 110–137; BP diastolic 79–90; PULSE 60–82; RESP 11–22; TEMP 36.4–36.6; O2SAT 95–100
[2019-07-24] MEDS: FUROsemide 10 mg/mL SDV 2mL 20 MG IVP ×2 (03:10→12:49)
[2019-07-24 04:52] LABS: Basophils # 0.1 10^3/uL (0.0-0.1); Basophils % 1.1 %; Eosinophils # 0.2 10^3/uL (0.0-0.8); Eosinophils % 3.2 %; Hematocrit 36.8 % (42.0-52.0); Hemoglobin 10.6 g/dL (11.7-16.6); Lymphocytes # 2.3 10^3/uL (0.8-4.8); Lymphocytes % 32.8 %; Mean Corpuscular HGB Conc 28.8 g/dL (30.0-36.0); Mean Corpuscular Hemoglobin 24.4 pg (28.0-34.0); Mean Corpuscular Volume 84.8 fL (80-94); Mean Platelet Volume 9.7 fL (7.4-10.4); Monocytes # 0.8 10^3/uL (0.2-0.9); Monocytes % 10.8 %; Neutrophils # 3.7 10^3/uL (1.8-7.7); Neutrophils % 51.8 %; Nucleated Red Blood Cells % 0 %; Platelet Count 250 10^3/cmm (130-400); Red Blood Count 4.34 10^6/uL (4.1-5.3); Red Cell Distribution Width 21.6 % (12.1-15.1); White Blood Count 7.1 10^3/uL (4.0-10.0)
[2019-07-24 05:33] LABS: Anion Gap 15.8 (5-19); Blood Urea Nitrogen 15 mg/dL (8-23); Calcium 9.1 mg/dL (8.5-10.5); Carbon Dioxide 24 mmol/L (22-29); Chloride 99 mmol/L (98-107); Glomerular Filtration Rate 68.1 mL/min (90-130); Glucose 107 mg/dL (65-115); Osmolality Calculated 277 mOsm/kg (285-295); Potassium 3.8 mmol/L (3.5-5.1); Sodium 135 mmol/L (136-145)
--- NOTE | 2019-07-24 06:37 | ECG_ITS ---
NAME OF STUDY: LEXISCAN SESTAMIBI STRESS TEST INDICATION: [Chest Pain] Please note that this is a electrocardiogram portion of the Lexiscan sestamibi stress test. Perfusion imaging will be documented on a separate report. Data At baseline heart rate was noted to be 61 bpm. Baseline blood pressure noted to be 135/90 Maximum Heart rate achieved was 75. Maximum blood pressure achieved was 153/97 mmHg. Reason for, ending this test was completion of the stress protocol. Patient did not have any symptoms during this procedure Electrocardiogram Baseline Paced rhythm with no ST changes. Exercise EKG at peak exercise reveals sinus rhythm with no new ST changes Intermittent paced rhythm . No cardiac arrhythmias noted. Conclusions 1. Electrocardiographic component of this cardiac stress test is negative for cardiac ischemia. Indeterminate due to paced rhythm 2. Please see separate report for report for the myocardial perfusion imaging Electronically Signed On 07-24-2019 11:59:33 CDT by Zahida Amor [email or web address]
--- NOTE | 2019-07-24 06:38 | NMCV_ITS ---
NM david perf SPECT r/s* [id number] Leroy Gautam Age: 59 Gender: M : 1960 Exam Date: 07/24/2019 06:38 Ordering Phys: Zahida Amor MD ([email or web address]) Technologist: YAMILKA Jacob Exam Location: [facility] Indications: CHEST PAIN STRESS TEST Please see separate stress test report in [facility] for full findings IMAGE PROTOCOL Rest/Stress 1 Lexiscan Day Radiopharmaceutical Dose (mCi) Administration Site Administered by Rest: Tc-99m 11.0 IV YAMILKA Jacob Sestamibi Stress:Tc-99m 32.3 IV YAMILKA Bear Sestamibi Rest: 24-Jul-2019 60 Discovery 630 Stress: 24-Jul-2019 30 Discovery 630 0.4mg Lexiscan. Supine position only as patient was unable to lay prone. SPECT RESULTS Technical Quality: Excellent Raw Data Analysis: Normal Image Corrections: No attenuation or motion correction applied Summed Stress Score: 3 Summed Rest Score: 1 Summed Difference Score: 2 PERFUSION FINDINGS FUNCTIONAL RESULTS (calculated via Gated SPECT) Stress Image LV EF (%): 24 Stress EDV (mL):189 TID: 1.03 Stress ESV (mL):143 FUNCTIONAL FINDINGS: IMPRESSIONS Small to Medium-size area of fixed perfusion defect noted from basal to distal inferior wall with mild randal-infarct ischemia involving the distal inferior wall. Ejection fraction 24 % EKG segment will be documented separately. Cesar Amor MD (Electronically Signed) Final Date: 24 July 2019 13:53 S
--- NOTE | 2019-07-24 08:30 | P.PN_ITS ---
Subjective Subjective: Interval history: Patient awake this morning remains on oxygen. Overall reports feeling better denies any chest pain does report of shortness of breath on exertion. Patient reports that his lower extremity swelling has improved. Tolerating p.o. diet, no other active complaints or concerns on today's evaluation. Explained at length regarding his thyroid dysfunction, and the fact that it may related to amiodarone usage . Medications: Reviewed: Yes Medication Review Details: Current Medications Acetaminophen (Tylenol) 650 mg PO Q6H PRN PRN Reason: Mild/Mod Pain Or Temp >/= 101 Aminophylline (Aminophylline) 25 mg IVP Q2M PRN PRN Reason: see dose instructions Stop: 07/24/19 12:12 Amiodarone HCl (Cordarone) 200 mg PO DAILY [facility] Last Admin: 07/23/19 10:58 Dose: 200 mg Documented by: Aspirin (Aspirin Ec) 81 mg PO DAILY [facility] Last Admin: 07/23/19 10:58 Dose: 81 mg Documented by: Atorvastatin Calcium (Lipitor) 40 mg PO BEDTIME [facility] Last Admin: 07/23/19 20:42 Dose: 40 mg Documented by: Furosemide (Lasix) 20 mg IVP Q8H [facility] Last Admin: 07/24/19 03:10 Dose: 20 mg Documented by: Levothyroxine Sodium (Synthroid) 25 mcg PO DAILY [facility] Metoprolol Succinate (Toprol Xl) 50 mg PO BEDTIME [facility] Last Admin: 07/23/19 20:42 Dose: 50 mg Documented by: Morphine Sulfate (Morphine) 2 mg IVP Q4H PRN PRN Reason: SEVERE PAIN Naloxone HCl (Narcan) 0.1 mg IVP Q2M PRN PRN Reason: OPIATERV Nicotine (Nicoderm 21 Mg Patch) 1 patch TRANSDERMA DAILY [facility] Last Admin: 07/23/19 14:41 Dose: 1 patch Documented by: Nitroglycerin (Nitrostat) 0.4 mg SUBLINGUAL Q5M PRN PRN Reason: CHEST PAIN Stop: 07/24/19 12:12 Ondansetron HCl (Zofran) 4 mg IVP Q6H PRN PRN Reason: NAUSEA AND VOMITING Vitals/I&O/Wt Last Vital Signs Temp 97.5 F L 07/24/19 07:29 Pulse 63 07/24/19 07:29 Resp 22 H 07/24/19 07:29 BP 110/81 07/24/19 07:29 Pulse Ox 100 07/24/19 07:29 07/23/19 07/24/19 07/24/19 22:59 06:59 14:59 Intake Total 240 / 461 540 / 1001 Output Total 800 / 1350 750 / 2100 Balance -560 / -889 -210 / -1099 Weight last 48 hrs Weight 267 lb 14.4 oz Weight 268 lb Physical Exam HENMT: COMMON NORMALS: normocephalic, head/scalp atraumatic, nasal mucous membranes and turbinates normal and oropharynx normal HEAD & SCALP: normocephalic and atraumatic NOSE: nasal mucous membranes and turbinates normal Eye: COMMON NORMALS: PERRL and EOMs intact bilaterally PUPIL: Yes PERRL Neck/C-Spine: COMMON NORMALS: full ROM and no JVD Chest: COMMONS NORMALS: inspection of chest normal OTHER: bilateral crackles noted Resp: COMMON NORMALS: normal respiratory effort, no use of accessory muscles and clear to auscultation bilaterally AUSCULTATION: clear to auscultation bilaterally Cardio: COMMON NORMALS: no JVD, S1 normal heart sound, S2 normal heart sound, no gallops and no murmurs JUGULAR VENOUS DISTENTION: no JVD HEART SOUNDS: S1 normal and S2 normal GI: COMMON NORMALS: normal to inspection, nondistended, normoactive bowel s ounds, soft to palpation and no masses PALPATION: Yes soft Extremity: COMMON NORMALS: normal to inspection OTHER: Edema noted Data : 07/24/19 02:55 07/24/19 02:55 A&P Assessment and plan (1) CHF (congestive heart failure): 1. Regarding decompensated congestive heart failure, patient seems to responding well to IV diuretics with a negative balance of 1000cc over the last 24 hours. 2. We will continue to restrict p.o. fluid intake, and continue with IV d iuresis at this point. Status: Chronic Code(s): I50.9 - Heart failure, unspecified (2) Paroxysmal A-fib: 1. Will advise patient regarding elevated TSH level which could be related to amiodarone therapy. 2. We will discuss options with the patient including discontinuation of amiodarone, or initiation of Synthroid at 25 mcg p.o. daily 3. At this point after discussion with patient, will initiate Synthroid 25 mg p.o. once a day, and defer change of antiarrhythmics to Dr. Fabby Amor on his return. 4. We will continue telemetry monitoring. 5 Based on elevated CHADSVASC score , would recommend initiation of anticoagulation including DOACs or coumadin with target INR 2-3. Status: Acute Code(s): I48.0 - Paroxysmal atrial fibrillation (3) CAD in [place] artery: 1. Regarding coronary artery disease, will proceed with cardiac stress testing as previously discussed and scheduled for this morning. 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
[2019-07-24] MEDS: amiodarone 200 mg Tablet PO (09:10)
[2019-07-24] MEDS: levothyroxine 25 mcg Tablet PO (09:11)
[2019-07-24] MEDS: aspirin 81 mg EC Tablet PO (09:11)
[2019-07-24] MEDS: nicotine 21 mg Patch 1 PATCH TRANSDERMA (09:14)
--- NOTE | 2019-07-24 10:49 | P.PN_ITS ---
Subjective Subjective: Interval history: Patient awake sitting at the side of bed this morning at time of exam. He denied any chest pain, reported that dyspnea on exertion had improved. Discussed with patient plan for continued diuresis and stress test today. Medications: Reviewed: Yes Medication Review Details: Current Medications Acetaminophen (Tylenol) 650 mg PO Q6H PRN PRN Reason: Mild/Mod Pain Or Temp >/= 101 Aminophylline (Aminophylline) 25 mg IVP Q2M PRN PRN Reason: see dose instructions Stop: 07/24/19 12:12 Amiodarone HCl (Cordarone) 200 mg PO DAILY [facility] Last Admin: 07/23/19 10:58 Dose: 200 mg Documented by: Aspirin (Aspirin Ec) 81 mg PO DAILY [facility] Last Admin: 07/23/19 10:58 Dose: 81 mg Documented by: Atorvastatin Calcium (Lipitor) 40 mg PO BEDTIME [facility] Last Admin: 07/23/19 20:42 Dose: 40 mg Documented by: Furosemide (Lasix) 20 mg IVP Q8H [facility] Last Admin: 07/24/19 03:10 Dose: 20 mg Documented by: Levothyroxine Sodium (Synthroid) 25 mcg PO DAILY [facility] Metoprolol Succinate (Toprol Xl) 50 mg PO BEDTIME [facility] Last Admin: 07/23/19 20:42 Dose: 50 mg Documented by: Morphine Sulfate (Morphine) 2 mg IVP Q4H PRN PRN Reason: SEVERE PAIN Naloxone HCl (Narcan) 0.1 mg IVP Q2M PRN PRN Reason: OPIATERV Nicotine (Nicoderm 21 Mg Patch) 1 patch TRANSDERMA DAILY [facility] Last Admin: 07/23/19 14:41 Dose: 1 patch Documented by: Nitroglycerin (Nitrostat) 0.4 mg SUBLINGUAL Q5M PRN PRN Reason: CHEST PAIN Stop: 07/24/19 12:12 Ondansetron HCl (Zofran) 4 mg IVP Q6H PRN PRN Reason: NAUSEA AND VOMITING Vitals/I&O/Wt Last Vital Signs Temp 97.5 F L 07/24/19 07:29 Pulse 63 07/24/19 07:29 Resp 22 H 07/24/19 07:29 BP 110/81 07/24/19 07:29 Pulse Ox 100 07/24/19 07:29 07/23/19 07/24/1907/23/20 22:59 06:59 14:59 Intake Total 240 / 461 540 / 1001 Output Total 800 / 1350 750 / 2100 Balance -560 / -889 -210 / -1099 Weight last 48 hrs Weight 121.517 kg Weight 121.563 kg Physical Exam Const: COMMON NORMALS: oriented x3 and alert GENERAL APPEARANCE: cooperative ORIENTATION/CONSCIOUSNESS: Yes awake, Yes oriented to person, Yes oriented to place and Yes oriented to time HENMT: COMMON NORMALS: normocephalic and head/scalp atraumatic HEAD & SCALP: normocephalic and atraumatic Eye: COMMON NORMALS: PERRL PUPIL: Yes PERRL Neck/C-Spine: COMMON NORMALS: supple GENERAL: Yes normal visual inspection Resp: COMMON NORMALS: normal respiratory effort EFFORT & INSPECTION: Yes able to speak in complete sentences AUSCULTATION: no rhonchi and no wheezes OTHER: Prolonged expiratory phase, diminished breath sounds bilaterally with no appreciable wheezing or rhonchi Cardio: COMMON NORMALS: regular rate, regular rhythm and no murmurs RATE: regular rate RHYTHM: regular rhythm GI: COMMON NORMALS: soft to palpation and non-tender INSPECTION: No a bdominal distension AUSCULTATION: Yes normoactive bowel sounds PALPATION: Yes soft : COMMON NORMALS: Yes no CVA tenderness BLADDER/KIDNEY EXAM: Yes no CVA tenderness Back/Pelvis: COMMON NORMALS: no CVA tenderness Extremity: COMMON NORMALS: no clubbing, cyanosis or edema and no calf tenderness NARRATIVE EXTREMITY EXAM: Bilateral lower extremity edema, 2+ Neuro: COMMON NORMALS: oriented x3, CN's II-XII intact bilaterally, moves all extremities and no focal motor deficits SENSORIUM/ORIENTATION: Yes alert, Yes oriented to person, Yes oriented to place and Yes oriented to time SPEECH: speech normal Psych: COMMON NORMALS: mental status grossly normal and cooperative Skin: COMMON NORMALS: no rashes or lesions noted GENERAL SKIN EXAM: no rashes or lesions noted Data : 07/24/19 02:55 07/24/19 02:55 A&P Assessment and plan (1) Chest pain: With a history of coronary artery disease Plan for repeat stress test today Also diuresing due to concern for CHF exacerbation. We will follow-up with recommendations from cardiology, Dr. Amor Status: Acute Code(s): R07.9 - Chest pain, unspecified (2) CAD in [place] artery: Patient is on aspirin, metoprolol, simvastatin at home. Increase to high intensity statin Status: Acute Code(s): I25.10 - Atherosclerotic heart disease of [place] coronary artery without angina pectoris (3) Paroxysmal A-fib: Paroxysmal atrial fibrillation Continue on amiodarone, metoprolol, warfarin. INR is subtherapeutic and patient has a history of medication noncompliance. Placed on treatment dose Lovenox at this time but patient may be a better candidate for one of the DOACs at time of discharge Status: Acute Code(s): I48.0 - Paroxysmal atrial fibrillation (4) SALONI (obstructive sleep apnea): Continue home CPAP Status: Acute Code(s): G47.33 - Obstructive sleep apnea (adult) (pediatric) (5) CHF (congestive heart failure): LVEF of 30%, systolic congestive heart failure Patient is on metolazone 2.5 mg twice daily, metoprolol, torsemide at home Continue on IV Lasix at this time, diuresing well, -1 L. Renal function has improved we will start on very low-dose EMPERATRIZ inhibitor. Has not been on EMPERATRIZ inhibitor or ARB in the past due to renal function Status: Chronic Code(s): I50.9 - Heart failure, unspecified (6) Panlobular emphysema: Not on any home oxygen, continues to smoke half to 1 pack/day Status: Acute Code(s): J43.1 - Panlobular emphysema Attestations Medical Necessity Statement*: Quires further hospitalization due to concern for acute on chronic CHF exacerbation as well as chest pain with known coronary artery disease. Coding Level of Care Code Acute Medical Records Administrator for [facility] Fwd Diagnoses Chest pain R07.9 CAD in [place] artery I25.10 Paroxysmal A-fib I48.0 SALONI (obstructive sleep apnea) G47.33 CHF (congestive heart failure) I50.9 Panlobular emphysema J43.1
--- NOTE | 2019-07-24 11:30 | SUR.PREOP ---
Patient reports no pain or discomfort prior to the start of the procedure.
[2019-07-24] MEDS: regadenoson 0.4 Mg/5 ml Syringe IVP (11:32)
[2019-07-24] MEDS: enoxaparin 120 mg/0.8 mL Syringe SUBCUT (12:51)
--- NOTE | 2019-07-24 14:19 | P.DS_ITS ---
Discharge Providers Date of Admission: 07/23/19 05:05 Date of Discharge: July 24, 2019 Attending Provider at Admission: Lita Dumont MD Attending Provider at Discharge: Julianna Uribe DO Primary Care Provider: hAmet Jasso MD Diagnoses at Discharge Discharge Diagnosis (1) Chest pain: Status: Acute (2) CAD in [place] artery: Status: Acute (3) Paroxysmal A-fib: Status: Acute (4) SALONI (obstructive sleep apnea): Status: Acute (5) CHF (congestive heart failure): Status: Chronic Problem details: Combined systolic and diastolic. LVEF by LV gram in 2017 was 40%. (6) Panlobular emphysema: Status: Acute Reason for Visit Reason for Visit: Reason For Visit: chest pain Hospital Course Hospital Course: Patient was seen and evaluated in the emergency department and admitted to the hospital for further evaluation due to concern for chest pain with known coronary artery disease and congestive heart failure. He was admitted to the hospital placed on telemetry with serial EKG and troponin. Cardiology was consulted due to a history of his last stress test being abnormal. He was noted to have concern for CHF exacerbation and placed on IV diuretics. He continued to diurese well and had improvement in his symptoms. Due to this improvement in his symptoms a stress test was ordered for further evaluation and it showed similar findings to 2018, very small area of mild randal- infarct ischemia involving the distal or inferior wall. This was improved from prior echocardiogram and cardiology cleared patient for discharge. Physical Exam Const: COMMON NORMALS: oriented x3 and alert GENERAL APPEARANCE: cooperative ORIENTATION/CONSCIOUSNESS: Yes awake, Yes oriented to person, Yes oriented to place and Yes oriented to time HENMT: COMMON NORMALS: normocephalic and head/scalp atraumatic HEAD & SCALP: normocephalic and atraumatic Eye: COMMON NORMALS: PERRL PUPIL: Yes PERRL Neck/C-Spine: COMMON NORMALS: supple GENERAL: Yes normal visual inspection Resp: COMMON NORMALS: normal respiratory effort EFFORT & INSPECTION: Yes able to speak in complete sentences AUSCULTATION: no rhonchi and no wheezes OTHER: Prolonged expiratory phase, diminished breath sounds bilaterally with no appreciable wheezing or rhonchi Cardio: COMMON NORMALS: regular rate, regular rhythm and no murmurs RATE: regular rate RHYTHM: regular rhythm GI: COMMON NORMALS: soft to palpation and non-tender INSPECTION: No abdominal distension AUSCULTATION: Yes normoactive bowel sounds PALPATION: Yes soft : COMMON NORMALS: Yes no CVA tenderness BLADDER/KIDNEY EXAM: Yes no CVA tenderness Back/Pelvis: COMMON NORMALS: no CVA tenderness Extremity: COMMON NORMALS: no clubbing, cyanosis or edema and no calf tenderness NARRATIVE EXTREMITY EXAM: Bilateral lower extremity edema, 1+ Neuro: COMMON NORMALS: oriented x3, CN's II-XII intact bilaterally, moves all extremities and no focal motor deficits SENSORIUM/ORIENTATION: Yes alert, Yes oriented to person, Yes oriented to place and Yes oriented to time SPEECH: speech normal Psych: COMMON NORMALS: mental status grossly normal and cooperative Skin: COMMON NORMALS: no rashes or lesions noted GENERAL SKIN EXAM: no rashes or lesions noted Discharge Data Data Completed and Pending: Completed Studies During Hospitalization Category Date Time Status Cardiac Stress Te st MIBI [Sestamibi Stress Test Reque st Exams 07/24/19 06:37 Completed ] Routine XR chest 1V ramone ble [id number] Stat Exams 07/23/19 03:36 Completed NM david perf SPECT r/s* [id number] Routin e Nuc Med 07/24/19 06:38 Completed US echo complete [CV echo complete* [id number]] Routine Ultrasound 07/23/19 11:14 Completed Labs from last 24 hours 07/24/19 07/24/19 02:55 02:55 WBC 7.1 RBC 4.34 Hgb 10.6 L Hct 36.8 L MCV 84.8 MCH 24.4 L MCHC 28.8 L RDW 21.6 H Plt Count 250 MPV 9.7 Neut % (Auto) 51.8 Lymph % (Auto) 32.8 [place] % (Auto) 10.8 Eos % (Auto) 3.2 Baso % (Auto) 1.1 Neut # (Auto) 3.7 Lymph # (Auto) 2.3 [place] # (Auto) 0.8 Eos # (Auto) 0.2 Baso # (Auto) 0.1 Nucleated RBC % (a uto) 0 Nucleated RBCs # 0.0 Sodium 135 L Potassium 3.8 Chloride 99 Carbon Dioxide 24 Anion Gap 15.8 BUN 15 Creatinine 1.1 GFR Calculation 68.1 L Glucose 107 Calculated Osmolal ity 277 L Calcium 9.1 Vitals: Last Vital Signs Temp 97.5 F L 07/24/19 07:29 Pulse 66 07/24/19 12:00 Resp 21 H 07/24/19 12:00 BP 137/90 07/24/19 12:00 Pulse Ox 96 07/24/19 12:00 Discharge Plan Discharge Patient Disposition: Home, Self-Care Condition: Stable Prescriptions: New atorvastatin 40 mg Tablet 40 mg PO BEDTIME 30 Days Qty: 30 RF: 0 levothyroxine 25 mcg Tablet 25 mcg PO DAILY 30 Days Qty: 30 RF: 0 lisinopril 2.5 mg Tablet 2.5 mg PO DAILY 30 Days Qty: 30 RF: 0 Eliquis 5 mg tablet 5 mg PO BID 30 Days Qty: 60 RF: 0 Continued metolazone 2.5 mg tablet 2.5 mg PO BID PRN (Reason: Edema) RF: 0 potassium chloride 20 mEq tablet extended release 20 meq PO BID PRN (Reason: WITH WATER PILL) RF: 0 nitroglycerin [Nitrostat] 0.4 mg tablet, sublingual 0.4 mg SUBLINGUAL Q5M PRN (Reason: Chest Pain) RF: 0 aspirin [Enteric Coated Aspirin] 81 mg tablet,delayed release (DR/EC) 81 mg PO DAILY RF: 0 torsemide 100 mg tablet 100 mg PO DAILY RF: 0 albuterol sulfate 2.5 mg /3 mL (0.083 %) solution for nebulization 2.5 mg INHALATION Q4H PRN (Reason: shortness of breath ) RF: 0 amiodarone 200 mg tablet 200 mg PO DAILY 30 Days Qty: 30 RF: 6 metoprolol succinate 50 mg tablet extended release 24 hr 50 mg PO .HS 30 Days Qty: 30 RF: 6 Discontinued warfarin 5 mg tablet 5 mg PO DAILY RF: 0 simvastatin 40 mg tablet 40 mg PO DAILY RF: 0 warfarin 1 mg tablet 1 mg PO DAILY Qty: 90 RF: 3 Discharge Orders: Discharge Order (Routine); Ordered 07/24/19 Ordered By: Julianna Uribe Referrals: Ahmet Jasso MD [Primary Care Provider] - 4-7 days Yomi Amor MD [Physician] - 2 weeks Discharge Diet: Cardiac and Low Salt Discharge Activity: Increase activity as tolerated Activity Restrictions/Additional Instructions: Stop taking warfarin, Coumadin, and start taking Eliquis 5 mg twice daily Started on lisinopril 2.5 mg daily Continue on torsemide and metolazone as previously prescribed. Stop taking simvastatin and start taking atorvastatin, cholesterol medication. Start taking levothyroxine 25 mcg daily and follow-up with your primary care provider for recheck TSH Follow a 2 g sodium restriction per 24 hours Follow a 1500 mL fluid restriction per 24 hours Monitor your daily weight. For any weight gain more than 2 to 3 pounds in a 24- hour period please call your physician. 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
--- NOTE | 2019-07-24 15:21 | PC.NURSE ---
Discharge Discharge instructions given per the physician's orders. Patient verbalized understanding and did not have any further questions. Patient escorted to private vehicle by hospital transport.
== END 2019-07-24 15:23 | disposition home or self-care (01) | DRG 303 ==
LOC: ER 03:38 → ICU 06:20 → CSU 10:21
PROVIDERS: Internal Medicine Cardiovascular Disease; Admitting Provider Student in an Organized Health Care Education/Training Program; Emergency Provider Family Medicine; Family Provider Internal Medicine; PCP Internal Medicine; Visit Provider Family Medicine
DX: I25.10 Atherosclerotic heart disease of native coronary artery without angina pectoris (principal); I50.42 Chronic combined systolic (congestive) and diastolic (congestive) heart failure; I48.0 Paroxysmal atrial fibrillation; G47.33 Obstructive sleep apnea (adult) (pediatric); J43.1 Panlobular emphysema; Z79.01 Long term (current) use of anticoagulants; Z79.82 Long term (current) use of aspirin; Z86.73 Personal history of transient ischemic attack (TIA), and cerebral infarction without residual deficits; D64.9 Anemia, unspecified; I42.9 Cardiomyopathy, unspecified; Z95.0 Presence of cardiac pacemaker; E03.9 Hypothyroidism, unspecified; I11.0 Hypertensive heart disease with heart failure; F17.210 Nicotine dependence, cigarettes, uncomplicated
CPT/HCPCS: 12345; 36415; 51702; 71045; 78452; 80048; 80053; 83880; 84443; 84484; 85025; 85610; 90471; 90686; 93005; 93010; 93017; 93306; 94660; 94664; 96372; 96375; 99283; A9500; J1650; J1940; J2785; J7030

== ENCOUNTER 2019-09-23 01:34 | Inpatient (IN) | payer MEDICARE, SELFPAY ==
[2019-09-23] VITALS (16 sets, daily range): BP systolic 108–125; BP diastolic 62–76; PULSE 58–74; RESP 16–24; TEMP 36.3–36.7; O2SAT 90–100; BMI 39.0
--- NOTE | 2019-09-23 01:35 | XR_ITS ---
WS: [id number] CHEST XRAY TECHNIQUE: Portable chest. CLINICAL INFORMATION: CHEST PAIN COMPARISON: July 23, 2019 FINDINGS: Heart: Cardiomegaly. Cardiac pacer. Lungs: Chronic emphysematous changes. Mild pulmonary vascular congestion with interstitial edema. No focal pneumonia. Bones: Normal visualized bony structures. XR/XR chest 1V portable [id number] IMPRESSION: Cardiomegaly with mild pulmonary vascular congestion and interstitial edema. No focal pneumonia.
--- NOTE | 2019-09-23 01:36 | ECG_ITS ---
Measurements Intervals [place] Rate: 65 P: [place]: 0 QRS: 140 QRSD: 133 T: 160 QT: 430 QTc: 448 UNCERTAIN IRREGULAR RHYTHM ELECTRONIC VENTRICULAR PACEMAKER -- CONTOUR ANALYSIS BASED ON INTRINSIC RHYTHM INTRAVENTRICULAR CONDUCTION DELAY [130+ ms QRS DURATION] POSSIBLE RIGHT VENTRICULAR HYPERTROPHY [SOME/ALL OF: PROMINENT R IN V1, LATE TR TRANSITION, RAD, JAMIE, SSS] Compared to ECG 07/23/2019 10:45:30 Intraventricular conduction delay now present Atrial abnormality now present Electronically Signed On 09-23-2019 11:17:10 CDT by Eduin Thomas M.D. [email or web address]
[2019-09-23 01:53] LABS: Basophils # 0.1 10^3/uL (0.0-0.1); Eosinophils # 0.2 10^3/uL (0.0-0.8); Eosinophils % 2.5 %; Hematocrit 35.9 % (42.0-52.0); Hemoglobin 10.6 g/dL (11.7-16.6); Lymphocytes # 2.7 10^3/uL (0.8-4.8); Mean Corpuscular HGB Conc 29.5 g/dL (30.0-36.0); Mean Corpuscular Volume 81.4 fL (80-94); Mean Platelet Volume 9.3 fL (7.4-10.4); Monocytes # 0.9 10^3/uL (0.2-0.9); Monocytes % 9.5 %; Neutrophils # 5.4 10^3/uL (1.8-7.7); Neutrophils % 57.7 %; Nucleated Red Blood Cells % 0 %; Platelet Count 253 10^3/cmm (130-400); Red Blood Count 4.41 10^6/uL (4.1-5.3); Red Cell Distribution Width 21.6 % (12.1-15.1); White Blood Count 9.4 10^3/uL (4.0-10.0)
[2019-09-23 02:11] LABS: Alanine Aminotransferase 23 U/L (0-41); Albumin Level 3.7 g/dL (3.5-5.2); Alkaline Phosphatase 204 IU/L (40-130); Anion Gap 16.9 (5-19); Aspartate Amino Transferase 35 U/L (0-40); Blood Urea Nitrogen 22 mg/dL (8-23); Calcium 8.9 mg/dL (8.5-10.5); Carbon Dioxide 25 mmol/L (22-29); Chloride 98 mmol/L (98-107); Globulin 4.1 g/dL (1.3-4.6); Glomerular Filtration Rate 68.1 mL/min (90-130); Glucose 118 mg/dL (65-115); Lipase 31 U/L (13-60); Magnesium 2.1 mg/dL (1.7-2.3); Osmolality Calculated 280 mOsm/kg (285-295); Potassium 3.9 mmol/L (3.5-5.1); Sodium 136 mmol/L (136-145); Total Bilirubin 1.4 mg/dL (0.15-1.2); Total Protein 7.8 g/dL (6.6-8.7)
[2019-09-23 02:13] LABS: Troponin(5th) Baseline 47 ng/mL (0-15)
[2019-09-23] MEDS: ondansetron 2 mg/ML SDV 2 mL 4 MG IVP (02:37)
[2019-09-23] MEDS: morphine 4 mg/mL SDV 1 mL IVP (02:38)
[2019-09-23 02:52] LABS: Specific Gravity, Urine 1.015 (1.005-1.030); Urine Appearance Clear (CLEAR); Urine Color Yellow (Yellow); pH Urine 6.5 (5-7)
[2019-09-23 02:53] LABS: Bacteria Urine 1+; Bilirubin Urine 1+ (NEGATIVE); Blood Urine Neg (Negative); Glucose Urine UA Norm (Normal); Ketones Urine Negative (Negative); Leukocyte Esterase Urine Negative (Negative); Nitrate Urine Negative (Negative); Protein Urine Neg (Negative); RBC Urine 0-4 /hpf (0-2); Squamous Epithelial Cell Urine 0-4 (0-5); Urobilinogen Urine 4+ mg/dL (Negative)
--- NOTE | 2019-09-23 03:35 | W.ED.CHESTPA ---
HPI - Chest Pain General: Chief Complaint: Chest Pain Stated Complaint: CP Time Seen by Provider: 09/23/19 01:35 History of Present Illness: HPI narrative: Leroy is a very nice 59-year-old male who comes in complaining of chest pain and shortness of breath. States his pain is like an ache. He has associated shortness of breath, orthopnea, and dyspnea on exertion. Says the pain goes down his left arm and he has associated diaphoresis. He got almost complete relief with sublingual nitroglycerin at home but still has some mild pain. Patient has known history of heart disease, congestive heart failure is currently on Eliquis for atrial fibrillation. He is unaware of anything else that makes his symptoms better or worse. Associated symptoms: Reports dyspnea; Deny abdominal pain, diaphoresis, fever(s), nausea, palpitations, syncope or vomiting Review of Systems Const: Denies: fever(s), chills, body aches, fatigue, malaise, night sweats or diaphoresis Eyes: Denies: change in vision, blurry vision or blind spots ENMT: Denies: throat pain, odynophagia, hoarseness, ear or mastoid pain, ear discharge, change in hearing or nasal discharge Card: Reports: chest pain; Denies: palpitations, irregular heart rhythm, lightheadedness, syncope, pre-syncope, dyspnea on exertion or orthopnea Resp: Reports: dyspnea; Denies: productive cough, non-productive cough, wheezing, hemoptysis or chest congestion GI: Denies: abdominal pain, nausea, vomiting, hematemesis, coffee ground emesis, heartburn, diarrhea, constipation, GI cramping, hematochezia or melena : Denies: flank pain, dysuria, urinary frequency, urinary urgency, oliguria, urinary incontinence or hematuria Musc: Denies: neck pain, back pain, extremity pain, extremity swelling, joint pain, joint swelling, joint redness, joint warmth or joint stiffness Skin/Breast: Denies: rash, pruritus, erythema, skin tenderness or jaundice Neuro: Denies: headache(s), numbness in extremities, weakness in extremities, sensory changes, lack of coordination, difficulty walking, dizziness, vertigo, confusion or Slurred speech present Endo: Denies: polyuria, polydipsia, tired all the time, cold intolerance, excessive sweating, flushing, hot flashes or heat intolerance Lauri/Lymph: Denies: easy bruising, easy bleeding, petechiae, purpura or enlarged lymph nodes All/Imm: Denies: urticaria, throat swelling, tongue swelling, facial swelling or acute wheezing PFSH ED PFSH: Medical History Anemia CAD in [place] artery Cardiomyopathy CHF (congestive heart failure) Combined systolic and diastolic. LVEF by LV gram in 2017 was 40%. CVA (cerebral vascular accident) HTN (hypertension) Hyperlipidemia Hypotension Hypothyroid Nicotine dependence, cigarettes, with unspecified nicotine-induced disorders Orthostasis SALONI (obstructive sleep apnea) Pacemaker 2014- dual chamber Panlobular emphysema Paroxysmal A-fib PVD (peripheral vascular disease) Vitamin B12 deficiency Surgical History H/O coronary angioplasty 2013 H/O reduction of closed fracture ankle History of cardiac radiofrequency ablation (RFA) 96937 Hx of appendectomy Status cardiac pacemaker Family History Father Myocardial infarct Mother Myocardial infarct Other Family history of premature coronary artery disease Hypertension Social History Smoking and tobacco status: current every day smoker cigarettes Packs smoked per day: 1 Years cigarettes smoked: 40 Quit status (tobacco): has tried quititng Second hand smoke exposure: Yes Smoking risk assessment/counseling performed?: Yes Alcohol intake: former Year of sobriety/quit date alcohol: 1980 Lives independently: Yes Household members: spouse Marital status: Current occupational status: disabled History of recent travel: No Current gender identity: Male Physical Exam Const: COMMON NORMALS: no acute distress, patient oriented x3, no limitations, healthy appearing and well nourished EXAM LIMITATIONS: no altered mental status GENERAL APPEARANCE: cooperative, well kempt and well developed HENMT: COMMON NORMALS: normocephalic, atraumatic, hearing grossly normal bilaterally, external ears normal, EAC's normal, Normal external nose present and moist oral mucous membranes HEAD & SCALP: normal to inspection, normocephalic and atraumatic FACE & SINUS: normal facial exam and face symmetric NOSE: Normal external nose present and Normal nares present EXTERNAL EAR: Yes external ears normal EXTERNAL AUDITORY CANAL: EAC's normal MOUTH: Normal oral and palatal mucosa present, lip normal and tongue normal Eye: COMMON NORMALS: Equal, round and reactive pupils present, EOMs intact bilaterally, conjunctivae normal and no scleral icterus GENERAL EYE: appearance normal, both eyes and all related structures ALIGNMENT: Yes alignment normal PERIORBITAL: periorbital findings normal EYELID: eyelids normal CONJUNCTIVA: Yes conjunctivae normal SCLERA: sclerae normal PUPIL: Yes Equal, round and reactive pupils present Neck/C-Spine: COMMON NORMALS: full ROM, no lymphadenopathy, supple, no meningeal signs and no JVD GENERAL: Yes normal visual inspection and Yes trachea midline CERVICAL SPINE: Yes cervical ROM normal Chest: COMMONS NORMALS: normal inspection of the chest and normal palpation of entire chest wall Resp: COMMON NORMALS: normal respiratory effort, No retractions, No use of accessory muscles and clear to auscultation bilaterally EFFORT & INSPECTION: Yes able to speak in complete sentences AUSCULTATION: clear to auscultation bilaterally, no crackles, rales, no rhonchi and no wheezes Cardio: COMMON NORMALS: no JVD, regular rate, regular rhythm, S1 normal heart sound present, S2 normal heart sound present, No gallops present (Cardio), No clicks present (Cardio), No murmurs present (Cardio) and No rub (Cardio) RATE: regular rate RHYTHM: regular rhythm HEART SOUNDS: S1 normal heart sound present, S2 normal heart sound present, no click, no gallops, no murmurs and no rubs GI: COMMON NORMALS: Soft to palpation, non-tender, No hepatosplenomegaly present and no masses PALPATION: Yes Soft to palpation, No Tenderness to palpation present (GI), No Guarding due to palpation present (GI), No Rigid due to palpation, Yes No hepatosplenomegaly present, No Hernia present, No Palpable mass present and No Pulsatile mass present : COMMON NORMALS: Yes no CVA tenderness BLADDER/KIDNEY EXAM: Yes no CVA tenderness Back/Pelvis: COMMON NORMALS: no CVA tenderness, thoracic and lumbar spine normal to inspection, no thoracic nor lumbar tenderness and thoraco-lumbar ROM normal Extremity: COMMON NORMALS: normal to inspection, full ROM, capillary refill normal, no joint enlargement, no clubbing, cyanosis or edema and no calf tenderness Neuro: COMMON NORMALS: patient oriented x3, CN's II-XII intact bilaterally, moves all extremities, no focal motor deficits and no sensory deficits noted MENINGEAL SIGNS: Yes no meningeal signs SPEECH: speech normal Psych: COMMON NORMALS: mental status grossly normal, Normal thought process present, cooperative, normal affect, speech normal and activity/motor behavior normal APPEARANCE: Yes well kempt SPEECH: Yes normal speech THOUGHT PROCESS: Normal thought process present Skin: COMMON NORMALS: no rashes or lesions noted, turgor normal, no jaundice, no petechiae and no mottling GENERAL SKIN EXAM: no rashes or lesions noted and turgor normal Course Vital Signs: Vital signs: Vital Signs Temperature 97.6 F 09/23/19 04:00 Pulse Rate 74 09/23/19 04:10 Respiratory Rate 16 09/23/19 04:10 Blood Pressure 108/62 09/23/19 04:10 Pulse Oximetry 95 09/23/19 04:10 MDM - Chest Pain MDM Narrative: Medical decision making narrative: The case was reviewed with Dr. Dumont, she agrees to admit for cardiac rule out, IV diuresis of congestive heart failure and possible cardiology consult for readmission for chest pain. Lab Data: Attestation: I reviewed the patient's lab results. Labs: Lab Results 09/23/19 09/23/19 09/23/19 Range/Units 01:42 01:42 01:42 WBC 9.4 (4.0-10.0) 10^3/ uL RBC 4.41 (4.1-5.3) 10^6/u L Hgb 10.6 L (11.7-16.6) g/dL Hct 35.9 L (42.0-52.0) % MCV 81.4 (80-94) fL MCH 24.0 L (28.0-34.0) pg MCHC 29.5 L (30.0-36.0) g/dL RDW 21.6 H (12.1-15.1) % Plt Count 253 (130-400) 10^3/c mm MPV 9.3 (7.4-10.4) fL Neut % (Auto) 57.7 % Lymph % (Auto) 29.0 % Fergus % (Auto) 9.5 % Eos % (Auto) 2.5 % Baso % (Auto) 1.0 % Neut # (Auto) 5.4 (1.8-7.7) 10^3/u L Lymph # (Auto) 2.7 (0.8-4.8) 10^3/u L Fergus # (Auto) 0.9 (0.2-0.9) 10^3/u L Eos # (Auto) 0.2 (0.0-0.8) 10^3/u L Baso # (Auto) 0.1 (0.0-0.1) 10^3/u L Nucleated RBC % (a uto) 0 % Nucleated RBCs # 0.0 /100WBC Sodium 136 (136-145) mmol/L Potassium 3.9 (3.5-5.1) mmol/L Chloride 98 (98-107) mmol/L Carbon Dioxide 25 (22-29) mmol/L Anion Gap 16.9 (5-19) BUN 22 (8-23) mg/dL Creatinine 1.1 (0.7-1.2) mg/dL GFR Calculation 68.1 L (90-130) mL/min Glucose 118 H (65-115) mg/dL Calculated Osmolal ity 280 L (285-295) mOsm/k g Calcium 8.9 (8.5-10.5) mg/dL Magnesium 2.1 (1.7-2.3) mg/dL Total Bilirubin 1.4 H (0.15-1.2) mg/dL AST 35 (0-40) U/L ALT 23 (0-41) U/L Alkaline Phosphata se 204 H (40-130) IU/L Troponin T Baselin e 47 H (0-15) ng/mL NT-Pro-B Natriuret Pep (0-125) pg/mL Total Protein 7.8 (6.6-8.7) g/dL Albumin 3.7 (3.5-5.2) g/dL Globulin 4.1 (1.3-4.6) g/dL Lipase 31 (13-60) U/L Urine Color (Yellow) Urine Appearance (CLEAR) Urine pH (5-7) Ur Specific Gravit y (1.005-1.030) Urine Protein (Negative) Urine Glucose (UA) (Normal) Urine Ketones (Negative) Urine Blood (Negative) Urine Nitrate (Negative) Urine Bilirubin (NEGATIVE) Urine Urobilinogen (Negative) mg/dL Ur Leukocyte Shayna ase (Negative) Urine RBC (0-2) /hpf Urine WBC (0-5) /hpf Ur Squamous Epith Cells (0-5) Urine Bacteria (NONE) 09/23/19 09/23/19 Range/Units 01:42 02:00 WBC (4.0-10.0) 10^3/ uL RBC (4.1-5.3) 10^6/u L Hgb (11.7-16.6) g/dL Hct (42.0-52.0) % MCV (80-94) fL MCH (28.0-34.0) pg MCHC (30.0-36.0) g/dL RDW (12.1-15.1) % Plt Count (130-400) 10^3/c mm MPV (7.4-10.4) fL Neut % (Auto) % Lymph % (Auto) % [place]ergus % (Auto) % Eos % (Auto) % Baso % (Auto) % Neut # (Auto) (1.8-7.7) 10^3/u L Lymph # (Auto) (0.8-4.8) 10^3/u L [place] # (Auto) (0.2-0.9) 10^3/u L Eos # (Auto) (0.0-0.8) 10^3/u L Baso # (Auto) (0.0-0.1) 10^3/u L Nucleated RBC % (a uto) % Nucleated RBCs # /100WBC Sodium (136-145) mmol/L Potassium (3.5-5.1) mmol/L Chloride (98-107) mmol/L Carbon Dioxide (22-29) mmol/L Anion Gap (5-19) BUN (8-23) mg/dL Creatinine (0.7-1.2) mg/dL GFR Calculation (90-130) mL/min Glucose (65-115) mg/dL Calculated Osmolal ity (285-295) mOsm/k g Calcium (8.5-10.5) mg/dL Magnesium (1.7-2.3) mg/dL Total Bilirubin (0.15-1.2) mg/dL AST (0-40) U/L ALT (0-41) U/L Alkaline Phosphata se (40-130) IU/L Troponin T Baselin e (0-15) ng/mL NT-Pro-B Natriuret Pep 2583 H (0-125) pg/mL Total Protein (6.6-8.7) g/dL Albumin (3.5-5.2) g/dL Globulin (1.3-4.6) g/dL Lipase (13-60) U/L Urine Color Yellow (Yellow) Urine Appearance Clear (CLEAR) Urine pH 6.5 (5-7) Ur Specific Gravit y 1.015 (1.005-1.030) Urine Protein Neg (Negative) Urine Glucose (UA) Norm (Normal) Urine Ketones Negative (Negative) Urine Blood Neg (Negative) Urine Nitrate Negative (Negative) Urine Bilirubin 1+ H (NEGATIVE) Urine Urobilinogen 4+ H (Negative) mg/dL Ur Leukocyte Shayna ase Negative (Negative) Urine RBC 0-4 H (0-2) /hpf Urine WBC 10-15 H (0-5) /hpf Ur Squamous Epith Cells 0-4 H (0-5) Urine Bacteria 1+ H (NONE) Imaging Data^: CXR: My impression: Cardiomegaly with moderate pulmonary vascular congestion. EKG Data^: EKG 1: Attestation: I personally reviewed and interpreted this EKG as follows: EKG interpretation date: 09/23/19 EKG interpretation time: 01:48 Interpretation: Ventricular paced rhythm at 65 beats a minute, PACs present. Discharge Plan Discharge Patient Disposition: Placed in Observation Admit Provider: Lita Dumont Clinical Impression: Chest pain, CHF (congestive heart failure) Condition: Stable Interventions: ED Discharge Assessment Last Done: 09/23/19 04:10 ED Charges Last Done: 09/23/19 04:12 Discharge Date/Time: 09/23/19 04:12 Coding Level of Care Code ED Delivery Stock Clerk for Chg Fwd Exam Comprehensive
--- NOTE | 2019-09-23 03:39 | PM.HP ---
Providers/Chief Complaint Admitting Physician: Lita Dumont MD Primary Care Provider: Ahmet Jasso MD Chief Complaint: CP History of Present Illness Leroy Gautam is a 59 year old male with a past medical history of hypertension, coronary artery disease and interstitial lung disease that presented to the emergency department for chest pain and shortness of breath. Patient reported that he has been worsening dyspnea over the past week with increasing LE swelling. He developed central chest pain, dull aching type, non radiating at ~10 pm tonight. He took S/L nitro at home and received morhpine in the ER which led to improvement in pain and dyspnea. He was last admitted here in July 2019 for similar symptoms, treated for CHF exacerbation with iv diuretics and underwent cardiac stress test. The latter showed similar findings to 2018, very small area of mild randal-infarct ischemia involving the distal or inferior wall. This was improved from prior echocardiogram. Last followed with cardiology on 08/18 at which time he was asymptomatic, apart from reporting occassional dizziness. Diagnostics in ER today show baseline troponin of 47, EKG with . BNP level pending, INR pending. EKG without acute ST-T changes. Review of Systems General: Reports: 10 or more systems reviewed and unremarkable except in HPI and below Const: Denies: fever(s), chills or body aches Eyes: Denies: change in vision, blurry vision or photophobia ENMT: Denies: throat pain, enlarged tonsils, odynophagia, hoarseness or nasal congestion Card: Reports: chest pain, edema, swelling of feet/ankles and dyspnea on exertion; Denies: palpitations, irregular heart rhythm, lightheadedness, pre-syncope or orthopnea Resp: Reports: dyspnea; Denies: productive cough, non-productive cough, wheezing, stridor, pain on inspiration, change in phlegm color, hemoptysis or chest congestion GI: Denies: abdominal pain, nausea, vomiting, hematemesis, coffee ground emesis, dysphagia, heartburn, diarrhea, constipation, GI cramping, change in stool character, hematochezia or melena : Denies: flank pain, dysuria, urinary frequency, urinary urgency, urinary hesitancy or hematuria Musc: Denies: neck pain, back pain, extremity pain, joint swelling, joint warmth or deformity Neuro: Denies: headache(s), numbness in extremities, weakness in extremities, sensory changes, difficulty walking, frequent falls, dizziness, vertigo, behavioral changes, Slurred speech present or seizure-like activity Psych: Denies: anxiety, depression, suicidal ideation or homicidal ideation Endo: Denies: polyuria, polydipsia, tired all the time, cold intolerance or hot flashes Lauri/Lymph: Denies: easy bruising or easy bleeding Medications/Allergies Home Medications Medication Instructions Recorded Confirmed Last Taken Type aspirin 81 mg tablet,delayed 81 mg PO DAILY tab 05/01/19 08/19/19 07/22/19 08:00 History release metolazone 2.5 mg tablet 2.5 mg PO BID PRN tab 05/01/19 08/19/19 07/22/19 21:00 History nitroglycerin 0.4 mg sublingual 0.4 mg SUBLINGUAL Q5M PRN 05/01/19 08/19/19 07/22/19 22:00 History tablet potassium chloride 20 mEq 20 meq PO BID PRN 05/01/19 08/19/19 07/22/19 21:00 History tablet,extended release albuterol sulfate 2.5 mg INHALATION Q4H PRN 07/17/19 08/19/19 Unknown History metoprolol succinate 50 mg 50 mg PO .HS 30 Days #30 tab 07/17/19 08/19/19 07/22/19 21:00 Rx tablet,extended release 24 hr torsemide 100 mg tablet 100 mg PO DAILY tab 07/17/19 08/19/19 Unknown History amiodarone 200 mg tablet 200 mg PO DAILY 30 Days #30 tab 07/29/19 08/19/19 Unknown Rx warfarin 2 mg tablet 6 mg PO DAILY 30 Days #90 tab 08/15/19 08/19/19 Unknown Rx atorvastatin 40 mg tablet 40 mg PO BEDTIME 30 Days #30 tab 09/08/19 Unknown Rx levothyroxine 25 mcg PO DAILY 09/23/19 09/23/19 1 Day Ago History ~09/22/19 Allergies Allergy/AdvReac Type Severity Reaction Status Date / Time No Known Allergies Allergy Verified 09/23/19 04:16 PFSH Acute PFSH: Medical History Anemia CAD in [place] artery Cardiomyopathy CHF (congestive heart failure) Combined systolic and diastolic. LVEF by LV gram in 2017 was 40%. CVA (cerebral vascular accident) HTN (hypertension) Hyperlipidemia Hypotension Hypothyroid Nicotine dependence, cigarettes, with unspecified nicotine-induced disorders Orthostasis SALONI (obstructive sleep apnea) Pacemaker 2013- dual chamber Panlobular emphysema Paroxysmal A-fib PVD (peripheral vascular disease) Vitamin B12 deficiency Surgical History H/O coronary angioplasty 2013 H/O reduction of closed fracture ankle History of cardiac radiofrequency ablation (RFA) 02565 Hx of appendectomy Status cardiac pacemaker Family History Father Myocardial infarct Mother Myocardial infarct Other Family history of premature coronary artery disease Hypertension Social History Smoking and tobacco status: current every day smoker cigarettes Packs smoked per day: 1 Years cigarettes smoked: 40 Quit status (tobacco): has tried quititng Second hand smoke exposure: Yes Smoking risk assessment/counseling performed?: Yes Alcohol intake: former Year of sobriety/quit date alcohol: 1979 Lives independently: Yes Household members: spouse Marital status: Current occupational status: disabled History of recent travel: No Current gender identity: Male Vitals/I&O/Wt Last Vital Signs Temp 98.1 F 09/23/19 01:35 Pulse 63 09/23/19 02:37 Resp 16 09/23/19 02:38 BP 111/70 09/23/19 02:37 Pulse Ox 97 09/23/19 02:38 Weight last 48 hrs Weight 127.006 kg Physical Exam Narrative: EXAM NARRATIVE: GEN: Awake, alert and oriented, no acute distress CVS: S1S2 N RS:B/L scattered rales, more prominent infra axillary areas Abd: Soft, nt/nd , bs+ 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 CHF exacerbation Lasix 40mg iv q12h Continue metolazone 2.5mg po daily Hold torsemide for now while on iv lasix supplemetal 02 to keep 02 sat 90-92% 2. chest pain, currently improved EKG without acute ST-T changes Troponin 2 hr without significant delta Recent stress test from 07/2019 grossly unchanged over 2018 3. CAD: continue Asa, statin 4. Paroxysmal A fib, currently controlled, continue metoprolol. Continue warfarin, check INR Cod status: full code Dvt ppx: warfarin Attestations Medical Necessity Statement*: anticipate > 2midnight admission for CHF exacerbation, optimization of diuretics, close monitoring Coding Level of Care Code Acute Car Changer for Chg Fwd Diagnoses CAD in [place] artery I25.10 Chest pain R07.9 Nicotine addiction F17.200 Paroxysmal A-fib I48.0 SALONI (obstructive sleep apnea) G47.33 CHF (congestive heart failure) I50.9 Cardiomyopathy I42.9 Panlobular emphysema J43.1
[2019-09-23] MEDS: FUROsemide 10 mg/mL SDV 4mL 40 MG IVP ×2 (03:41→12:17)
[2019-09-23 03:50] LABS: NT Pro B Type Natriuretic Pept 2583 pg/mL (0-125)
[2019-09-23 04:30] LABS: Troponin 5 2HR 45.97 ng/mL (0-15)
--- NOTE | 2019-09-23 04:33 | PC.NURSE ---
Dr. Dumont in room to see patient. Patient asked doctor if he can have caffeine (Dr. Lockhart/Bruce) due to cardiac diet. Doctor stated that patient can have one per day, but to limit it.
[2019-09-23 04:38] LABS: Troponin 5 2HR Delta -1.03 ABS# (0-10)
[2019-09-23 06:21] LABS: Basophils # 0.1 10^3/uL (0.0-0.1); Eosinophils # 0.3 10^3/uL (0.0-0.8); Hematocrit 35.5 % (42.0-52.0); Hemoglobin 10.4 g/dL (11.7-16.6); Lymphocytes # 2.5 10^3/uL (0.8-4.8); Lymphocytes % 30.6 %; Mean Corpuscular HGB Conc 29.3 g/dL (30.0-36.0); Mean Corpuscular Hemoglobin 24.5 pg (28.0-34.0); Mean Corpuscular Volume 83.5 fL (80-94); Mean Platelet Volume 9.2 fL (7.4-10.4); Monocytes # 0.8 10^3/uL (0.2-0.9); Monocytes % 10.1 %; Neutrophils # 4.6 10^3/uL (1.8-7.7); Neutrophils % 55.1 %; Nucleated Red Blood Cells % 0 %; Platelet Count 227 10^3/cmm (130-400); Red Blood Count 4.25 10^6/uL (4.1-5.3); Red Cell Distribution Width 21.9 % (12.1-15.1); White Blood Count 8.3 10^3/uL (4.0-10.0)
[2019-09-23 06:45] LABS: Anion Gap 15.3 (5-19); Blood Urea Nitrogen 22 mg/dL (8-23); Calcium 9.2 mg/dL (8.5-10.5); Carbon Dioxide 26 mmol/L (22-29); Chloride 98 mmol/L (98-107); Glucose 122 mg/dL (65-115); Osmolality Calculated 280 mOsm/kg (285-295); Potassium 3.3 mmol/L (3.5-5.1); Sodium 136 mmol/L (136-145)
[2019-09-23] MEDS: potassium chloride oral liq 20 mEq/15 mL UDC 40 MEQ PO (07:15)
--- NOTE | 2019-09-23 07:36 | ECG_ITS ---
Measurements Intervals [place] Rate: 64 P: CT: 0 QRS: -64 QRSD: 101 T: 155 QT: 395 QTc: 408 Possible atrial fibrillation with demand ventricular pacing. Further interpretation is not possible Electronically Signed On 09-23-2019 20:54:39 CDT by Gracie Arita M.D. [email or web address]
[2019-09-23] MEDS: levothyroxine 25 mcg Tablet PO (09:02)
[2019-09-23] MEDS: amiodarone 200 mg Tablet PO (09:02)
[2019-09-23] MEDS: aspirin 81 mg EC Tablet PO (09:02)
[2019-09-23 10:31] LABS: Troponin 5 6HR 40.75 ng/mL (0-15)
[2019-09-23] MEDS: isosorbide mononitrate ER 30 mg Tablet 15 MG PO (12:16)
--- NOTE | 2019-09-23 13:55 | PM.PN ---
Subjective Subjective: Interval history: Admitted overnight. H and P, labs noted. On examination patient sleeping comfortably in bed almost lying flat. No acute events since admission. Denies of having any nausea, vomiting, headache. Believes shortness of breath is stable. Medications: Reviewed: Yes Vitals/I&O/Wt Last Vital Signs Temp 97.4 F L 09/23/19 11:15 Pulse 60 09/23/19 11:15 Resp 18 09/23/19 11:15 BP 111/75 09/23/19 11:15 Pulse Ox 98 09/23/19 11:15 09/22/19 09/23/19 09/23/19 22:59 06:59 14:59 Intake Total 200 / 200 480 / 480 Output Total 400 / 400 400 / 400 Balance -200 / -200 80 / 80 Weight last 48 hrs Weight 128.622 kg Weight 127.006 kg Physical Exam Narrative: EXAM NARRATIVE: General: No acute distress, AO x3, morbidly obese HEENT: PERRLA, pupils bilaterally equal and reactive Chest: Normal vesicular breath sounds bilaterally, decreased air entry bilaterally. Bilateral lower zone fine crackles present. CVS: S1-S2 regular, no murmurs, no tachycardia, no gallops, no rubs Abdomen: Soft, nontender, no organomegaly, bowel sounds present Neuro: No focal deficits, no facial deformity, AO x3, power 5/5 in all limbs Data : 09/23/19 05:54 09/23/19 05:54 A&P Assessment and plan (1) Shortness of breath: Status: Acute (2) Cardiomyopathy: Status: Acute (3) CHF (congestive heart failure): Status: Chronic Qualifiers: Heart failure chronicity: acute on chronic Heart failure type: unspecified Qualified Code(s): I50.9 - Heart failure, unspecified (4) Panlobular emphysema: Status: Acute (5) SALONI (obstructive sleep apnea): Status: Acute (6) Chest pain: Status: Acute Qualifiers: Chest pain type: unspecified Qualified Code(s): R07.9 - Chest pain, unspecified (7) CAD in [place] artery: Status: Acute (8) Paroxysmal A-fib: Status: Acute (9) Pacemaker: Status: Acute (10) RBBB: Status: Acute (11) Nicotine addiction: Status: Acute Additional A&P Information 59-year-old gentleman past medical history obstructive sleep apnea, panlobular emphysema, ischemic cardiomyopathy with EF of 30% with recent echocardiogram and stress test in July presents with shortness of breath and chest pain. Shortness of breath most likely due to CHF exacerbation systolic type: Echo from July 2019 shows EF of 30% with increased LV and RV size with decreased RV systolic functions, biatrial enlargement. Increase Lasix to 80 mg IV twice daily. Patient received 40 mg IV Lasix today morning with give extra 40 mg right now. Continue to monitor urine output. If does not have good urine output by evening we will give her a dose of metolazone as well. Daily weights. Strict input output charting. Given echo findings of biatrial enlargement and recurrent chest pain we will start patient on Imdur 15 mg daily to hopefully decrease atrial pressures. We will monitor blood pressures. History of ILD: Patient follows up with Dr. Ragsdale. Oxygen supplementation keeping saturation over 90%. DuoNebs every 6 hours, budesonide twice daily. Chest pain: Recent stress test in July 2019 shows small to medium fixed size area of perfusion basal to distal inferior wall with mild randal-infarct ischemia. It was deemed unchanged from 2018 and patient was advised medical management. At present patient chest pain-free. EKG without acute ST-T changes Troponin 2 hr without significant delta Recent stress test from 07/2019 grossly unchanged over 2018 Continue with home dose of aspirin and statin. Paroxysmal A fib: Currently controlled. Continue with home dose of Lopressor will do in divided tartrate doses. Continue with home dose of amiodarone. Check EKG. Interrogate pacemaker. Continue warfarin at home dose. Check INR tomorrow. Hypothyroidism: Recently thought because of amiodarone effect on thyroid. We will check TSH, free T3, free T4. Continue home dose of levothyroxine. 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
[2019-09-23] MEDS: ipratropium-albuterol 3 mL Neb INHALATION ×2 (14:28→20:47)
[2019-09-23 14:56] LABS: Free T4 Free Thyroxine 1.29 ng/dL (0.82-1.77); T3 Free 2.4 PG/ML (2.0-4.4); Thyroid Stimulating Hormone 14.43 uIU/mL (0.27-4.20)
[2019-09-23] MEDS: warfarin 3 mg Tablet 6 MG PO (15:05)
[2019-09-23] MEDS: nicotine 14 mg Patch 1 PATCH TRANSDERMA (15:06)
[2019-09-23 15:26] LABS: Procalcitonin 0.12 ng/mL (0-0.5)
[2019-09-23] MEDS: FUROsemide 10 mg/mL SDV 4mL 80 MG IVP (15:57)
[2019-09-23] MEDS: metoprolol tartrate 25 mg Tablet PO (17:19)
--- NOTE | 2019-09-23 17:46 | PC.NURSE ---
patient requests for a cpap Dr salvador notified ok to place order for home setting respiratory notified for placement
[2019-09-23] MEDS: atorvastatin 40 mg Tablet PO (20:12)
[2019-09-23] MEDS: budesonide 0.5 mg/2 mL Neb INHALATION (20:47)
[2019-09-24 04:00] VITALS: BP 115/62; PULSE 62; RESP 20; TEMP 36.4; O2SAT 95
[2019-09-24] MEDS: FUROsemide 10 mg/mL SDV 4mL 80 MG IVP (04:14)
[2019-09-24 05:07] LABS: Basophils # 0.1 10^3/uL (0.0-0.1); Basophils % 1.2 %; Eosinophils # 0.3 10^3/uL (0.0-0.8); Eosinophils % 3.1 %; Hematocrit 35.1 % (42.0-52.0); Hemoglobin 10.2 g/dL (11.7-16.6); Lymphocytes # 2.2 10^3/uL (0.8-4.8); Lymphocytes % 26.6 %; Mean Corpuscular HGB Conc 29.1 g/dL (30.0-36.0); Mean Corpuscular Hemoglobin 24.2 pg (28.0-34.0); Mean Corpuscular Volume 83.2 fL (80-94); Mean Platelet Volume 9.6 fL (7.4-10.4); Monocytes % 11.7 %; Neutrophils # 4.8 10^3/uL (1.8-7.7); Nucleated Red Blood Cells % 0 %; Platelet Count 205 10^3/cmm (130-400); Red Blood Count 4.22 10^6/uL (4.1-5.3); Red Cell Distribution Width 21.9 % (12.1-15.1); White Blood Count 8.4 10^3/uL (4.0-10.0)
[2019-09-24 05:18] LABS: INR 1.82 (0.8-1.2)
[2019-09-24 05:22] LABS: Magnesium 2.1 mg/dL (1.7-2.3)
[2019-09-24 05:23] LABS: Alanine Aminotransferase 22 U/L (0-41); Albumin Level 3.3 g/dL (3.5-5.2); Alkaline Phosphatase 187 IU/L (40-130); Anion Gap 15.1 (5-19); Aspartate Amino Transferase 35 U/L (0-40); Blood Urea Nitrogen 20 mg/dL (8-23); Calcium 9.4 mg/dL (8.5-10.5); Carbon Dioxide 28 mmol/L (22-29); Chloride 99 mmol/L (98-107); Globulin 4.6 g/dL (1.3-4.6); Glucose 105 mg/dL (65-115); Osmolality Calculated 283 mOsm/kg (285-295); Potassium 4.1 mmol/L (3.5-5.1); Sodium 138 mmol/L (136-145); Total Bilirubin 1.4 mg/dL (0.15-1.2); Total Protein 7.9 g/dL (6.6-8.7)
[2019-09-24 07:22] VITALS: BP 120/66; PULSE 68; RESP 18; TEMP 36.4; O2SAT 92
[2019-09-24 09:00] VITALS: PULSE 82; RESP 15; O2SAT 95
[2019-09-24] MEDS: isosorbide mononitrate ER 30 mg Tablet 15 MG PO (09:05)
[2019-09-24] MEDS: levothyroxine 25 mcg Tablet PO (09:05)
[2019-09-24] MEDS: amiodarone 200 mg Tablet PO (09:05)
[2019-09-24] MEDS: aspirin 81 mg EC Tablet PO (09:05)
[2019-09-24] MEDS: metoprolol tartrate 25 mg Tablet PO (09:05)
[2019-09-24] MEDS: nicotine 14 mg Patch 1 PATCH TRANSDERMA (09:05)
--- NOTE | 2019-09-24 09:39 | PC.CHAP ---
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 [] Patient/Family/Request visit [] Outpatient visit [] Follow-up visit [] Physician referral [] Code/Alert [x] Routine visit [] Staff referral [] Actively dying [] Patient sleeping [] Family support [] [] Out of room [] Palliative care [] [] Receiving care in room [] Pre-surgical visit [] Trauma [] Long length of stay [] ICU visit [] Other: Relational/Emotional Strength [] Patient feels connected with others/family/visitors/staff [] Distress [] Loneliness/isolation [] Abandonment Spirituality of Patient [] Person of Nano [] Attends Je[employer] Witness of their Nano [] Believes in Prayer [] Reads Bible or Roman Catholic materials [] There are Spiritual issues to be addressed Reception Clerk Interventions [x] Prayer [] Active listening [] Non-anxious presence [] Spiritual/emotional support [] Crisis/trauma care [] Spiritual counseling [] Bereavement support [] Provided bereavement packet [] Provided Bible/devotional materials [] Provided toy/stuffed animal, coloring book to patient or family member [] Provided Communion [] Anointing/[place] [] Salvation [x] Completed spiritual assessment [] Other: Impact on Illness or Injury [] Angry [] Fearful [] Anxious [] Often cries [] Exhaustion [] Unable to work [] Unable to attend faith [] Unable to walk/stand [] Unable to read [] Unable to drive [] Unable to eat/drink [] Unable to sleep [] Unable to be with family [] Patient intubated [] Other: Summary Lavern has met patient before. Patient is resting well. Time spent with patient 10 min
--- NOTE | 2019-09-24 09:45 | PM.DCS ---
Discharge Providers Date of Admission: 09/23/19 05:00 Date of Discharge: September 24, 2019 Attending Provider at Admission: Lita Dumont MD Attending Provider at Discharge: Micah Cavanaugh MD Primary Care Provider: Ahmet Jasso MD Diagnoses at Discharge Discharge Diagnosis (1) Shortness of breath: Status: Acute (2) Cardiomyopathy: Status: Acute (3) CHF (congestive heart failure): Status: Chronic Problem details: Combined systolic and diastolic. LVEF by LV gram in 2017 was 40%. Qualifiers: Heart failure chronicity: acute on chronic Heart failure type: unspecified Qualified Code(s): I50.9 - Heart failure, unspecified (4) Panlobular emphysema: Status: Acute (5) SALONI (obstructive sleep apnea): Status: Acute (6) Chest pain: Status: Acute Qualifiers: Chest pain type: unspecified Qualified Code(s): R07.9 - Chest pain, unspecified (7) CAD in [place] artery: Status: Acute (8) Paroxysmal A-fib: Status: Acute (9) Pacemaker: Status: Acute Problem details: 2013- dual chamber (10) RBBB: Status: Acute (11) Nicotine addiction: Status: Acute Reason for Visit Reason for Visit: Reason For Visit: CP Hospital Course Discharge Summary: Leroy Gautam is a 59 year old male with a past medical history of hypertension, coronary artery disease and interstitial lung disease that presented to the emergency department for chest pain and shortness of breath. Patient reported that he has been worsening dyspnea over the past week with increasing LE swelling. He developed central chest pain, dull aching type, non radiating at ~10 pm tonight. He took S/L nitro at home and received morhpine in the ER which led to improvement in pain and dyspnea. He was last admitted here in July 2019 for similar symptoms, treated for CHF exacerbation with iv diuretics and underwent cardiac stress test.At that time his echocardiogram showed an EF of 30% with increased LV and RV size with decreased RV functions and biatrial enlargement he also underwent stress test at that time which had shown small to medium fixed area of perfusion at baseline to distal inferior wall with mild randal-infarct ischemia which was deemed unchanged since 2018 so he has been on medical management for that. During this admission his shortness of breath was also being most likely because of CHF. Pneumonia was ruled out imaging negative for infiltrates, procalcitonin being normal. He was treated with IV diuresis and dose of metolazone. He responded really well to the diuresis and was around 5 L negative. Given the echo findings of biatrial enlargement and recurrent admissions because of CHF patient was started on low-dose Imdur hoping to decrease atrial pressures. Patient tolerated treatment well and blood pressure has remained stable. During hospitalization patient was also found to have extremely elevated TSH with a normal T3-T4 which was thought most likely because of amiodarone effect on the thyroid. His dose of amiodarone has been decreased from 200 mg daily to 100 mg daily. He has been discharged in hemodynamically stable condition with advised to follow-up with his primary care physician within next 2 weeks. He is advised to take metolazone 5 mg for next 3 days and after that as needed. For diagnosis of ILD he follows up with Dr. Ragsdale and has been due for a PFT which patient has been noncompliant with for some time. Patient was counseled to follow-up with the pulmonary function test and Advair has been added to his medication list. Physical Exam Narrative: EXAM NARRATIVE: General: No acute distress, AO x3, morbidly obese HEENT: PERRLA, pupils bilaterally equal and reactive Chest: Normal vesicular breath sounds bilaterally, decreased air entry bilaterally. Bilateral lower zone fine crackles present. CVS: S1-S2 regular, no murmurs, no tachycardia, no gallops, no rubs Abdomen: Soft, nontender, no organomegaly, bowel sounds present Neuro: No focal deficits, no facial deformity, AO x3, power 5/5 in all limbs Discharge Data Data Completed and Pending: Completed Studies During Hospitalization Category Date Time Status XR chest 1V ramone ble [id number] Stat Exams 09/23/19 01:35 Completed Labs from last 24 hours 09/24/19 09/24/19 09/24/19 04:09 04:09 04:09 WBC 8.4 RBC 4.22 Hgb 10.2 L Hct 35.1 L MCV 83.2 MCH 24.2 L MCHC 29.1 L RDW 21.9 H Plt Count 205 MPV 9.6 Neut % (Auto) 57.0 Lymph % (Auto) 26.6 [place] % (Auto) 11.7 Eos % (Auto) 3.1 Baso % (Auto) 1.2 Neut # (Auto) 4.8 Lymph # (Auto) 2.2 [place] # (Auto) 1.0 H Eos # (Auto) 0.3 Baso # (Auto) 0.1 Nucleated RBC % (a uto) 0 Nucleated RBCs # 0.0 PT INR Sodium 138 Potassium 4.1 Chloride 99 Carbon Dioxide 28 Anion Gap 15.1 BUN 20 Creatinine 1.0 GFR Calculation 76.0 L Glucose 105 Calculated Osmolal ity 283 L Calcium 9.4 Magnesium 2.1 Total Bilirubin 1.4 H AST 35 ALT 22 Alkaline Phosphata se 187 H Troponin I 6 Hour Troponin I Hi Sens Del Total Protein 7.9 Albumin 3.3 L Globulin 4.6 Procalcitonin TSH Free T4 Free T3 09/24/19 09/23/19 09/23/19 04:09 09:56 05:54 WBC RBC Hgb Hct MCV MCH MCHC RDW Plt Count MPV Neut % (Auto) Lymph % (Auto) [place] % (Auto) Eos % (Auto) Baso % (Auto) Neut # (Auto) Lymph # (Auto) [place] # (Auto) Eos # (Auto) Baso # (Auto) Nucleated RBC % (a uto) Nucleated RBCs # PT 21.70 H INR 1.82 H Sodium Potassium Chloride Carbon Dioxide Anion Gap BUN Creatinine GFR Calculation Glucose Calculated Osmolal ity Calcium Magnesium Total Bilirubin AST ALT Alkaline Phosphata se Troponin I 6 Hour 40.75 H Troponin I Hi Sens Del -6.25 L Total Protein Albumin Globulin Procalcitonin 0.12 TSH 14.43 H Free T4 1.29 Free T3 2.4 Vitals: Last Vital Signs Temp 97.6 F 09/24/19 07:22 Pulse 68 09/24/19 07:22 Resp 18 09/24/19 07:22 BP 120/66 09/24/19 07:22 Pulse Ox 92 09/24/19 07:22 Discharge Plan Discharge Patient Disposition: Home, Self-Care Condition: Stable Prescriptions: New isosorbide mononitrate 30 mg Tablet Extended Release 24 Hr 15 mg PO DAILY Qty: 30 RF: 0 Advair Diskus 100-50 mcg/dose blister with device 1 inh INHALATION BID Qty: 60 RF: 0 Continued metolazone 2.5 mg tablet 2.5 mg PO PRN PRN (Reason: Edema) RF: 0 potassium chloride 20 mEq tablet extended release 20 meq PO BID PRN (Reason: WITH WATER PILL) RF: 0 nitroglycerin [Nitrostat] 0.4 mg tablet, sublingual 0.4 mg SUBLINGUAL Q5M PRN (Reason: Chest Pain) RF: 0 aspirin [Enteric Coated Aspirin] 81 mg tablet,delayed release (DR/EC) 81 mg PO DAILY RF: 0 torsemide 100 mg tablet 100 mg PO DAILY RF: 0 albuterol sulfate 2.5 mg /3 mL (0.083 %) solution for nebulization 2.5 mg INHALATION Q4H PRN (Reason: shortness of breath ) RF: 0 metoprolol succinate 50 mg tablet extended release 24 hr 50 mg PO .HS 30 Days Qty: 30 RF: 6 Coumadin 2 mg tablet 6 mg PO DAILY 30 Days Qty: 90 RF: 3 atorvastatin 40 mg tablet 40 mg PO BEDTIME 30 Days Qty: 30 RF: 3 levothyroxine 50 mcg tablet 25 mcg PO DAILY RF: 0 Changed amiodarone 200 mg tablet 100 mg PO DAILY 30 Days Qty: 30 RF: 6 Discharge Orders: Discharge Order (Routine); Ordered 09/24/19 Ordered By: Micah Cavanaugh Referrals: Ahmet Jasso MD [Primary Care Provider] - 2 weeks (You have an follow-up appointment with Dr. Jasso on Sunday, October 07 at 1:15p.m. If you have any questions or need to reschedule. Please, call ) Discharge Diet: Cardiac and Low Salt Discharge Activity: Resume usual activity Patient Instructions: Isosorbide Mononitrate (By mouth), Fluticasone/Salmeterol (By breathing), Coronary Artery Disease (DC), Chest Pain (DC), Sleep Apnea Syndrome (DC), Heart Block (DC), Chest Pain Stoplight Activity Restrictions/Additional Instructions: Take metolazone 2.5 mg daily for next 3 days and after that as needed. Dose of amiodarone has been decreased. New dosage is 100 mg daily. Imdur has been added to your medication list. Advair has been added to your medication list. Once again it is very important that you try to stop smoking. Discharge Date/Time: 09/24/19 10:55 Discharge Attestations Time Spent in Discharge Care*: greater than 30 min Specific Discharge Activities: Specific discharge activities: educating patient, discussing with pcp/other providers, documenting/other paperwork and evaluating patient/reviewing data Time Spent in Smoking Cessation: Time spent discussing smoking cessation with patient: more than 10 minutes Status at Discharge: Cognitive status at discharge: cognitively intact, Behavioral status at discharge: cooperative, Functional status at discharge: independent ambulation Overall status at discharge: patient is back to baseline Quality Metrics Clinical Quality Measures During this hospital stay, did patient experience: None Coding Level of Care Code 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
[2019-09-24 10:00] VITALS: BMI 39.5
[2019-09-24 10:15] VITALS: BP 110/64; PULSE 60; RESP 18; TEMP 36.6; O2SAT 96
[2019-09-24 10:17] VITALS: BP 110/64; PULSE 60; RESP 18; TEMP 36.6; O2SAT 96
--- NOTE | 2019-09-24 10:35 | PC.NURSE ---
Patient discharged home, with appointment for follow up care with primary provider. A riky of discharge instructions given and explained to patient at this time; verbalized understanding voiced. Patient educated on new medications and all medication changes. Patient given written and verbal education on discharge diagnosis and prevention of chest pain. patient verbalized understanding and agreed to review discharge information and call with any comments concerns or questions. IV discontinued; cath intact min bleeding noted. Patient awaiting for friend for ride home.
== END 2019-09-24 10:55 | disposition home or self-care (01) | DRG 292 ==
LOC: ER 01:51 → CSU 03:48
PROVIDERS: Emergency Medicine; Admitting Provider Student in an Organized Health Care Education/Training Program; Family Provider Internal Medicine; PCP Internal Medicine; Visit Provider Student in an Organized Health Care Education/Training Program
DX: I11.0 Hypertensive heart disease with heart failure (principal); J84.9 Interstitial pulmonary disease, unspecified; I50.43 Acute on chronic combined systolic (congestive) and diastolic (congestive) heart failure; I42.9 Cardiomyopathy, unspecified; J43.1 Panlobular emphysema; G47.33 Obstructive sleep apnea (adult) (pediatric); I48.0 Paroxysmal atrial fibrillation; Z95.0 Presence of cardiac pacemaker; I45.10 Unspecified right bundle-branch block; I25.10 Atherosclerotic heart disease of native coronary artery without angina pectoris; Z79.82 Long term (current) use of aspirin; Z79.01 Long term (current) use of anticoagulants; E78.5 Hyperlipidemia, unspecified; E03.9 Hypothyroidism, unspecified; F17.210 Nicotine dependence, cigarettes, uncomplicated; Z86.73 Personal history of transient ischemic attack (TIA), and cerebral infarction without residual deficits; I73.9 Peripheral vascular disease, unspecified; E53.8 Deficiency of other specified B group vitamins
CPT/HCPCS: 12345; 36415; 71045; 80048; 80053; 81001; 83690; 83735; 83880; 84145; 84439; 84443; 84481; 84484; 85025; 85610; 93005; 94640; 96375; 99283; G0378; J1940; J2270; J2405; J7611; J7626

== ENCOUNTER 2019-10-31 00:45 | Emergency (ER) | payer MEDICARE, SELFPAY ==
[2019-10-31 00:45] VITALS: BMI 37.3
--- NOTE | 2019-10-31 00:50 | ECG_ITS ---
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 Measurements Intervals [place] Rate: 62 P: IN: -1 QRS: 263 QRSD: 222 T: 83 QT: 581 QTc: 591 Interpretive Statements ELECTRONIC VENTRICULAR PACEMAKER PROLONGED QT INTERVAL CRITICAL TEST RESULT Compared to ECG 09/23/2019 05:23:46 Prolonged QT interval now present Electronically Signed On 10-31-2019 21:51:03 CDT by Yomi Amor M.D. [email or web address]
--- NOTE | 2019-10-31 00:50 | XR_ITS ---
WS: [id number] PORTABLE CHEST HISTORY: sob COMPARISON: 09/23/2019 LEFT subclavian cardiac pacer. Hyperinflated lungs with diffuse interstitial thickening which has progressed since the prior study. No dense focal consolidation or pneumonia. No pleural effusion or pneumothorax. Cardiac size: Mildly enlarged cardiac silhouette. Mediastinum/Aorta: Mild atherosclerosis aorta. No osseous abnormality seen. XR/XR chest 1V portable [id number] IMPRESSION: 1. New pulmonary edema superimposed on chronic emphysema. 2. No pneumonia.
--- NOTE | 2019-10-31 00:51 | W.ED.SOB ---
HPI - SOB/Dyspnea General: Chief Complaint: Shortness of Breath/Dyspnea Stated Complaint: SHORT OF BREATH Time Seen by Provider: 10/31/19 00:45 Source: patient and EMS Mode of arrival: EMS Limitations: no limitations History of Present Illness: HPI Narrative: 59-year-old male has a long history of CHF and COPD. He states that he started get very short of breath all of a sudden before arrival. EMS arrived he was on his oxygen he states he was satting in the 80s. Patient given breathing treatment still just feels much improved. Patient's oxygen saturation is currently normal on his normal O2 level. Patient denies any chest pain currently. He has had no fever or cough. He states he has not taken his Lasix today. MD elicited complaint: shortness of breath Pertinent past history: COPD and congestive heart failure Onset (ago): hour(s) Associated symptoms: Deny abdominal pain, chest pain, fever(s), nausea or vomiting Review of Systems Const: Denies: fever(s), chills, body aches or change in appetite Eyes: Denies: blurry vision or eye discomfort ENMT: Denies: throat pain or dental pain Card: Denies: chest pain Resp: Reports: dyspnea GI: Denies: abdominal pain, nausea, vomiting or diarrhea : Denies: dysuria Musc: Denies: neck pain or back pain Skin/Breast: Denies: rash Neuro: Denies: headache(s) Psych: Denies: depression Lauri/Lymph: Denies: easy bruising All/Imm: Denies: urticaria PFSH ED PFSH: Medical History Anemia 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 LVEF by LV gram in 2017 was 40%. CVA (cerebral vascular accident) HTN (hypertension) Hyperlipidemia Hypotension Hypothyroid Nicotine dependence, cigarettes, with unspecified nicotine-induced disorders Orthostasis SALONI (obstructive sleep apnea) Pacemaker 2014- dual chamber Panlobular emphysema Paroxysmal A-fib PVD (peripheral vascular disease) Vitamin B12 deficiency Surgical History H/O coronary angioplasty 2013 H/O reduction of closed fracture ankle History of cardiac radiofrequency ablation (RFA) 75137 Hx of appendectomy S/P appendectomy Status cardiac pacemaker Family History Father Myocardial infarct Mother Myocardial infarct Other Family history of premature coronary artery disease Hypertension Social History Smoking and tobacco status: current every day smoker cigarettes Packs smoked per day: 1 Years cigarettes smoked: 40 Quit status (tobacco): has tried quititng Second hand smoke exposure: Yes Smoking risk assessment/counseling performed?: Yes Alcohol intake: former Year of sobriety/quit date alcohol: 1979 Lives independently: Yes Household members: spouse Marital status: Current occupational status: disabled History of recent travel: No Current gender identity: Male Physical Exam Const: COMMON NORMALS: no acute distress, patient oriented x3 and healthy appearing HENMT: COMMON NORMALS: normocephalic and atraumatic HEAD & SCALP: normocephalic and atraumatic Eye: COMMON NORMALS: Equal, round and reactive pupils present and EOMs intact bilaterally PUPIL: Yes Equal, round and reactive pupils present Neck/C-Spine: COMMON NORMALS: full ROM and supple Chest: COMMONS NORMALS: normal inspection of the chest and normal palpation of entire chest wall Resp: COMMON NORMALS: normal respiratory effort, No retractions, No use of accessory muscles and clear to auscultation bilaterally AUSCULTATION: clear to auscultation bilaterally and wheezes Cardio: COMMON NORMALS: regular rate, regular rhythm and No murmurs present (Cardio) RATE: regular rate RHYTHM: regular rhythm GI: COMMON NORMALS: Normal to inspection, nondistended, normoactive bowel sounds present, Soft to palpation, non-tender and no masses PALPATION: Yes Soft to palpation Extremity: COMMON NORMALS: normal to inspection and full ROM OTHER: 2+ edema Neuro: COMMON NORMALS: patient oriented x3, moves all extremities and no focal motor deficits Psych: COMMON NORMALS: mental status grossly normal, Normal thought process present and cooperative THOUGHT PROCESS: Normal thought process present Skin: COMMON NORMALS: no rashes or lesions noted and no wounds GENERAL SKIN EXAM: no rashes or lesions noted Course Vital Signs: Vital signs: Vital Signs Temperature 98.4 F 10/31/19 00:52 Pulse Rate 64 10/31/19 02:50 Respiratory Rate 19 H 06/26/20 02:50 Blood Pressure 136/90 06/26/20 02:50 Pulse Oximetry 96 10/31/19 02:50 MDM - SOB/Dyspnea MDM Narrative: Medical decision making narrative: Sisi presents here with CHF or COPD. Patient is much improved here and has urinated with his Lasix. Patient given potassium here and is to increase potassium in his diet. Patient is stable for discharge and is to take breathing treatments at home. He is return to ER if worsening. He understands agrees to plan. Lab Data: Labs: Lab Results 10/31/19 10/31/19 10/31/19 Range/Units 01:00 01:21 01:21 WBC 9.0 (4.0-10.0) 10^3/ uL RBC 4.04 L (4.1-5.3) 10^6/u L Hgb 10.0 L (11.7-16.6) g/dL Hct 33.7 L (42.0-52.0) % MCV 83.4 (80-94) fL MCH 24.8 L (28.0-34.0) pg MCHC 29.7 L (30.0-36.0) g/dL RDW 21.5 H (12.1-15.1) % Plt Count 216 (130-400) 10^3/c mm MPV 9.1 (7.4-10.4) fL Neut % (Auto) 51.7 % Lymph % (Auto) 33.9 % [place] % (Auto) 9.9 % Eos % (Auto) 3.2 % Baso % (Auto) 1.0 % Neut # (Auto) 4.7 (1.8-7.7) 10^3/u L Lymph # (Auto) 3.1 (0.8-4.8) 10^3/u L [place] # (Auto) 0.9 (0.2-0.9) 10^3/u L Eos # (Auto) 0.3 (0.0-0.8) 10^3/u L Baso # (Auto) 0.1 (0.0-0.1) 10^3/u L Nucleated RBC % (a uto) 0 % Nucleated RBCs # 0.0 /100WBC PT 20.10 H (10.5-13.3) SECO NDS INR 1.65 H (0.8-1.2) Specimen Type Arterial Sample Site Radial, right ABG pH 7.51 H (7.35-7.45) ABG pCO2 33.7 L (35-45) mmHg ABG pO2 57.2 L (80.0-100.0) mmH g ABG HCO3 27.1 H (22-26) mmol/L ABG Base Excess 4.1 H (-2.0-2.0) mmol/ L Jose Alberto Test Pos Hematocrit 31.3 L (42-52) % Hgb O2 Saturation 85.2 L (95-100) % Carboxyhemoglobin 5.9 (0.4-20.1) %THgb Methemoglobin 0.9 (0.4-1.5) % Total Hemoglobin 10.2 L (14-18) g/dL O2 Delivery Device Nc O2 Liters/Min 4.0 % Internet Marketing Intern ID [email or web address] Sodium (136-145) mmol/L Potassium (3.5-5.1) mmol/L Chloride (98-107) mmol/L Carbon Dioxide (22-29) mmol/L Anion Gap (5-19) BUN (8-23) mg/dL Creatinine (0.7-1.2) mg/dL GFR Calculation (90-130) mL/min Glucose (65-115) mg/dL Calculated Osmolal ity (285-295) mOsm/k g Calcium (8.5-10.5) mg/dL Magnesium (1.7-2.3) mg/dL Total Bilirubin (0.15-1.2) mg/dL AST (0-40) U/L ALT (0-41) U/L Alkaline Phosphata se (40-130) IU/L NT-Pro-B Natriuret Pep (0-125) pg/mL Total Protein (6.6-8.7) g/dL Albumin (3.5-5.2) g/dL Globulin (1.3-4.6) g/dL 10/31/19 Range/Units 01:21 WBC (4.0-10.0) 10^3/ uL RBC (4.1-5.3) 10^6/u L Hgb (11.7-16.6) g/dL Hct (42.0-52.0) % MCV (80-94) fL MCH (28.0-34.0) pg MCHC (30.0-36.0) g/dL RDW (12.1-15.1) % Plt Count (130-400) 10^3/c mm MPV (7.4-10.4) fL Neut % (Auto) % Lymph % (Auto) % [place] % (Auto) % Eos % (Auto) % Baso % (Auto) % Neut # (Auto) (1.8-7.7) 10^3/u L Lymph # (Auto) (0.8-4.8) 10^3/u L [place] # (Auto) (0.2-0.9) 10^3/u L Eos # (Auto) (0.0-0.8) 10^3/u L Baso # (Auto) (0.0-0.1) 10^3/u L Nucleated RBC % (a uto) % Nucleated RBCs # /100WBC PT (10.5-13.3) SECO NDS INR (0.8-1.2) Specimen Type Sample Site ABG pH (7.35-7.45) ABG pCO2 (35-45) mmHg ABG pO2 (80.0-100.0) mmH g ABG HCO3 (22-26) mmol/L ABG Base Excess (-2.0-2.0) mmol/ L Jose Alberto Test Hematocrit (42-52) % Hgb O2 Saturation (95-100) % Carboxyhemoglobin (0.4-20.1) %THgb Methemoglobin (0.4-1.5) % Total Hemoglobin (14-18) g/dL O2 Delivery Device O2 Liters/Min % Internet Marketing Intern ID Sodium 135 L (136-145) mmol/L Potassium 2.8 L* (3.5-5.1) mmol/L Chloride 95 L (98-107) mmol/L Carbon Dioxide 26 (22-29) mmol/L Anion Gap 16.8 (5-19) BUN 21 (8-23) mg/dL Creatinine 1.2 (0.7-1.2) mg/dL GFR Calculation 61.6 L (90-130) mL/min Glucose 132 H (65-115) mg/dL Calculated Osmolal ity 278 L (285-295) mOsm/k g Calcium 8.9 (8.5-10.5) mg/dL Magnesium 1.9 (1.7-2.3) mg/dL Total Bilirubin 1.3 H (0.15-1.2) mg/dL AST 29 (0-40) U/L ALT 17 (0-41) U/L Alkaline Phosphata se 192 H (40-130) IU/L NT-Pro-B Natriuret Pep 1975 H (0-125) pg/mL Total Protein 8.1 (6.6-8.7) g/dL Albumin 3.4 L (3.5-5.2) g/dL Globulin 4.7 H (1.3-4.6) g/dL EKG Data^: EKG 1: Attestation: I personally reviewed and interpreted this EKG as follows: EKG Interpretation Date: 10/31/19 EKG interpretation time: 01:21 Interpretation: paced no st elevation qrs 222 qtc 586 unchanged Discharge Plan Discharge Patient Disposition: Home, Self-Care Clinical Impression: Acute exacerbation of chronic obstructive airways disease CHF (congestive heart failure) Qualifiers: Heart failure type: unspecified Heart failure chronicity: acute on chronic Qualified Code(s): I50.9 - Heart failure, unspecified Condition: Stable Prescriptions: New prednisone 50 mg tablet 50 mg PO DAILY Qty: 5 RF: 0 No Action metolazone 2.5 mg tablet 2.5 mg PO PRN PRN (Reason: Edema) RF: 0 potassium chloride 20 mEq tablet extended release 20 meq PO BID PRN (Reason: WITH WATER PILL) RF: 0 nitroglycerin [Nitrostat] 0.4 mg tablet, sublingual 0.4 mg SUBLINGUAL Q5M PRN (Reason: Chest Pain) RF: 0 aspirin [Enteric Coated Aspirin] 81 mg tablet,delayed release (DR/EC) 81 mg PO DAILY RF: 0 torsemide 100 mg tablet 100 mg PO DAILY RF: 0 albuterol sulfate 2.5 mg /3 mL (0.083 %) solution for nebulization 2.5 mg INHALATION Q4H PRN (Reason: shortness of breath ) RF: 0 metoprolol succinate 50 mg tablet extended release 24 hr 50 mg PO .HS 30 Days Qty: 30 RF: 6 Coumadin 2 mg tablet 6 mg PO DAILY 30 Days Qty: 90 RF: 3 atorvastatin 40 mg tablet 40 mg PO BEDTIME 30 Days Qty: 30 RF: 3 levothyroxine 50 mcg tablet 25 mcg PO DAILY RF: 0 isosorbide mononitrate 30 mg Tablet Extended Release 24 Hr 15 mg PO DAILY Qty: 30 RF: 0 amiodarone 200 mg tablet 100 mg PO DAILY 30 Days Qty: 30 RF: 6 Advair Diskus 100-50 mcg/dose blister with device 1 inh INHALATION BID Qty: 60 RF: 0 Discharge Orders: Discharge Order (Routine); Ordered 10/31/19 Ordered By: Henna Suarez Referrals: Ahmet Jasso MD [Primary Care Provider] - 1-3 days Discharge Diet: Advance as tolerated Discharge Activity: Resume usual activity Patient Instructions: Heart Failure (ED) Discharge Date/Time: 10/31/19 02:54 Coding Level of Care Code ED Tree Driller for Ruma Fwd Exam Comprehensive
[2019-10-31 00:52] VITALS: BP 128/76; PULSE 70; RESP 18; TEMP 36.9; O2SAT 99
[2019-10-31 01:00] VITALS: PULSE 78; RESP 18; O2SAT 96
[2019-10-31 01:10] VITALS: PULSE 77; O2SAT 96
[2019-10-31 01:10] LABS: ABG PCO2 33.7 mmHg (35-45); ABG PH Result 7.51 (7.35-7.45); Arterial Blood Gas Hematocrit 31.3 % (42-52); Base Excess ABG 4.1 mmol/L (-2.0-2.0); Blood Gas Allen Test Pos; Blood Gas Sample Site Radial, right; Blood Gas Sample Type Arterial; Carboxyhemoglobin 5.9 %THgb (0.4-20.1); HCO3 ABG 27.1 mmol/L (22-26); HGB O2 Sat 85.2 % (95-100); Methemoglobin 0.9 % (0.4-1.5); Oxygen Device NC; PO2 ABG 57.2 mmHg (80.0-100.0); Total Hemoglobin 10.2 g/dL (14-18)
[2019-10-31] MEDS: FUROsemide 10 mg/mL SDV 4mL 40 MG IVP (01:27)
[2019-10-31 01:45] VITALS: BP 127/65; PULSE 62; RESP 19; O2SAT 99
[2019-10-31 01:49] LABS: Basophils # 0.1 10^3/uL (0.0-0.1); Eosinophils # 0.3 10^3/uL (0.0-0.8); Eosinophils % 3.2 %; Hematocrit 33.7 % (42.0-52.0); Lymphocytes # 3.1 10^3/uL (0.8-4.8); Lymphocytes % 33.9 %; Mean Corpuscular HGB Conc 29.7 g/dL (30.0-36.0); Mean Corpuscular Hemoglobin 24.8 pg (28.0-34.0); Mean Corpuscular Volume 83.4 fL (80-94); Mean Platelet Volume 9.1 fL (7.4-10.4); Monocytes # 0.9 10^3/uL (0.2-0.9); Monocytes % 9.9 %; Neutrophils # 4.7 10^3/uL (1.8-7.7); Neutrophils % 51.7 %; Nucleated Red Blood Cells % 0 %; Platelet Count 216 10^3/cmm (130-400); Red Blood Count 4.04 10^6/uL (4.1-5.3); Red Cell Distribution Width 21.5 % (12.1-15.1)
[2019-10-31 02:07] LABS: INR 1.65 (0.8-1.2)
[2019-10-31 02:11] LABS: Alanine Aminotransferase 17 U/L (0-41); Albumin Level 3.4 g/dL (3.5-5.2); Alkaline Phosphatase 192 IU/L (40-130); Anion Gap 16.8 (5-19); Aspartate Amino Transferase 29 U/L (0-40); Blood Urea Nitrogen 21 mg/dL (8-23); Calcium 8.9 mg/dL (8.5-10.5); Carbon Dioxide 26 mmol/L (22-29); Chloride 95 mmol/L (98-107); Globulin 4.7 g/dL (1.3-4.6); Glomerular Filtration Rate 61.6 mL/min (90-130); Glucose 132 mg/dL (65-115); Magnesium 1.9 mg/dL (1.7-2.3); NT Pro B Type Natriuretic Pept 1975 pg/mL (0-125); Osmolality Calculated 278 mOsm/kg (285-295); Sodium 135 mmol/L (136-145); Total Bilirubin 1.3 mg/dL (0.15-1.2); Total Protein 8.1 g/dL (6.6-8.7)
[2019-10-31 02:24] LABS: Potassium 2.8 mmol/L (3.5-5.1)
[2019-10-31] MEDS: potassium chloride ER 10 mEq Tablet 40 MEQ PO (02:35)
[2019-10-31 02:50] VITALS: BP 136/90; PULSE 64; RESP 19; O2SAT 96
== END 2019-10-31 02:54 | disposition home or self-care (01) ==
PROVIDERS: Emergency Provider Emergency Medicine; PCP Internal Medicine
DX: J44.1 Chronic obstructive pulmonary disease with (acute) exacerbation (principal); I11.0 Hypertensive heart disease with heart failure; I50.9 Heart failure, unspecified; Z79.82 Long term (current) use of aspirin; Z79.01 Long term (current) use of anticoagulants; I25.10 Atherosclerotic heart disease of native coronary artery without angina pectoris; Z86.73 Personal history of transient ischemic attack (TIA), and cerebral infarction without residual deficits; E78.5 Hyperlipidemia, unspecified; Z95.0 Presence of cardiac pacemaker; Z98.61 Coronary angioplasty status; F17.210 Nicotine dependence, cigarettes, uncomplicated
CPT/HCPCS: 12345; 71045; 80053; 82805; 83735; 83880; 85025; 85610; 93005; 94640; 96374; 96375; 99282; 99284; J1940; J2930; J7611

== ENCOUNTER → 2019-11-10 10:41 | Outpatient (BNVA) | payer MEDICARE, SELFPAY | PROVIDERS: PCP Internal Medicine; Visit Provider Internal Medicine Cardiovascular Disease | DX: I48.0 Paroxysmal atrial fibrillation (principal) | CPT/HCPCS: 85610 ==

== ENCOUNTER → 2019-11-28 12:23 | Outpatient (BNVA) | payer MEDICARE, SELFPAY | PROVIDERS: PCP Internal Medicine; Visit Provider Internal Medicine Cardiovascular Disease | DX: I25.10 Atherosclerotic heart disease of native coronary artery without angina pectoris (principal); R07.9 Chest pain, unspecified; R06.02 Shortness of breath; I48.0 Paroxysmal atrial fibrillation; Z95.0 Presence of cardiac pacemaker; I50.9 Heart failure, unspecified; I42.9 Cardiomyopathy, unspecified | CPT/HCPCS: 80048; 83880; 84443; 85025 ==

== ENCOUNTER 2019-12-09 09:46 | Emergency (ER) | payer MEDICARE, SELFPAY ==
[2019-12-09] VITALS (12 sets, daily range): BP systolic 131–143; BP diastolic 87–101; PULSE 65–97; RESP 14–24; TEMP 36.6; O2SAT 90–98; BMI 39.0
--- NOTE | 2019-12-09 10:28 | XR_ITS ---
WS: [id number] PORTABLE CHEST HISTORY: dyspnea/cough COMPARISON: 10/31/2019 Dual lead LEFT subclavian pacer. Mild pulmonary venous congestion. Chronic emphysema. No pneumonia. No pleural effusion or pneumothora x. Cardiac size: Mildly enlarged cardiac silhouette. Mediastinum/Aorta: Normal mediastinum. No osseous abnormality seen. XR/XR chest 1V portable [id number] IMPRESSION: Mild pulmonary venous congestion superimposed on chronic emphysema.
--- NOTE | 2019-12-09 10:29 | ECG_ITS ---
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 Measurements Intervals [place] Rate: 76 P: TN: -1 QRS: -74 QRSD: 113 T: 149 QT: 404 QTc: 456 Interpretive Statements Atrial fibrillation with demand ventricular pacing. LEFT ANTERIOR FASCICULAR BLOCK [QRS AXIS <= -45, QR IN I, RS IN II] POSSIBLE ANTERIOR MYOCARDIAL INFARCTION , PROBABLY OLD Compared to ECG 10/31/2019 01:21:58 Left anterior fascicular block now present Myocardial infarct finding now present Prolonged QT interval no longer present Electronically Signed On 12-09-2019 12:42:51 CDT by Anais Henderson M.D. [email or web address].[employer]/store/NU/[id number] f
[2019-12-09 10:36] LABS: Basophils # 0.1 10^3/uL (0.0-0.1); Basophils % 1.6 %; Eosinophils # 0.4 10^3/uL (0.0-0.8); Eosinophils % 5.2 %; Hematocrit 37.2 % (42.0-52.0); Hemoglobin 10.5 g/dL (11.7-16.6); Lymphocytes # 2.4 10^3/uL (0.8-4.8); Lymphocytes % 32.6 %; Mean Corpuscular HGB Conc 28.2 g/dL (30.0-36.0); Mean Corpuscular Volume 85.1 fL (80-94); Mean Platelet Volume 9.6 fL (7.4-10.4); Monocytes # 0.8 10^3/uL (0.2-0.9); Monocytes % 11.1 %; Neutrophils # 3.68 10^3/uL (1.8-7.7); Neutrophils % 49.1 %; Nucleated Red Blood Cells % 0 %; Platelet Count 198 10^3/cmm (130-400); Red Blood Count 4.37 10^6/uL (4.1-5.3); Red Cell Distribution Width 21.3 % (12.1-15.1); White Blood Count 7.5 10^3/uL (4.0-10.0)
[2019-12-09 10:48] LABS: Troponin(5th) Baseline 35 ng/L (0-15)
[2019-12-09 10:56] LABS: Alanine Aminotransferase 13 U/L (0-41); Albumin Level 3.6 g/dL (3.5-5.2); Alkaline Phosphatase 182 IU/L (40-130); Anion Gap 11.7 (5-19); Aspartate Amino Transferase 23 U/L (0-40); Blood Urea Nitrogen 14 mg/dL (8-23); Calcium 8.7 mg/dL (8.5-10.5); Carbon Dioxide 24 mmol/L (22-29); Chloride 104 mmol/L (98-107); Globulin 4.1 g/dL (1.3-4.6); Glomerular Filtration Rate 85.8 mL/min (90-130); Glucose 96 mg/dL (65-115); NT Pro B Type Natriuretic Pept 2060 pg/mL (0-125); Osmolality Calculated 278 mOsm/kg (285-295); Potassium 3.7 mmol/L (3.5-5.1); Sodium 136 mmol/L (136-145); Total Bilirubin 1.4 mg/dL (0.15-1.2); Total Protein 7.7 g/dL (6.6-8.7)
[2019-12-09 11:05] LABS: Bilirubin Urine 1+ (NEGATIVE); Blood Urine Trace (Negative); Glucose Urine UA Norm (Normal); Ketones Urine Negative (Negative); Nitrate Urine Negative (Negative); Protein Urine Neg (Negative); Specific Gravity, Urine 1.015 (1.005-1.030); Urine Appearance Clear (CLEAR); Urine Color Yellow (Yellow); pH Urine 8 (5-7)
[2019-12-09 11:06] LABS: Add Urine Microscopic? YES; Leukocyte Esterase Urine Negative (Negative); Urobilinogen Urine 4+ mg/dL (Negative)
[2019-12-09 11:09] LABS: Sulfosalicylic Acid Urine Negative (Negative)
[2019-12-09 11:11] LABS: Add Urine Culture? No; Amorphous Sediment Urine TRACE; Bacteria Urine TRACE; Mucus Urine TRACE; RBC Urine 0-4 /hpf (0-2); Squamous Epithelial Cell Urine 0-4 (0-5); WBC Urine 0-4 /hpf (0-5)
--- NOTE | 2019-12-09 11:29 | ED_ITS ---
HPI - General Adult General: Chief complaint: General Medical Stated complaint: SWELLING/SOB Time Seen by Provider: 12/09/19 09:54 History of Present Illness: HPI narrative: 59-year-old male presents emergency room complaining of increased shortness of breath difficulty with swelling. He recently had a decrease in 1 of his medications referring to the cardiology notes look like they decreased his metoprolol. Having increasing shortness of breath since then time is also noticed some swelling in his legs he has not had any diaphoresis no chest pain no radiation. No nausea or vomiting he has had some orthopnea and some back pain. Shortness of breath is worse when he walks and gets better within 10 minutes after he stops. He usually does wear oxygen at home he wears up to 4 L/min. He has had he has noticed significant amount of swelling to the lower extremities he also notes some presacral edema. Onset (ago): week(s) Severity: moderate Relieving factors: rest Exacerbating factors: movement Associated symptoms: Reports dyspnea and malaise; Deny chest pain, cough, diaphoresis, fevers/chills, nausea, rash, palpitations, short of breath, syncope, vomiting or weakness Treatments prior to arrival: none Review of Systems Const: Reports: malaise; Denies: diaphoresis ENMT: Denies: throat pain, ear or mastoid pain, nasal discharge or nasal congestion Card: Denies: chest pain, palpitations or syncope Resp: Reports: dyspnea GI: Denies: nausea or vomiting : Denies: flank pain, dysuria, urinary frequency or urinary urgency Skin/Breast: Denies: rash or pruritus PFS ED PFSH: Medical History Anemia Atrial fibrillation CAD in [place] artery Cardiomyopathy CHF (congestive heart failure) Combined systolic and diastolic. LVEF by LV gram in 2017 was 40%. CVA (cerebral vascular accident) HTN (hypertension) Hyperlipidemia Hypotension Hypothyroid Nicotine dependence, cigarettes, with unspecified nicotine-induced disorders Orthostasis SALONI (obstructive sleep apnea) Pacemaker 2014- dual chamber Panlobular emphysema Paroxysmal A-fib PVD (peripheral vascular disease) Vitamin B12 deficiency Surgical History H/O coronary angioplasty 2013 H/O reduction of closed fracture ankle History of cardiac radiofrequency ablation (RFA) 17795 Hx of appendectomy S/P appendectomy Status cardiac pacemaker Family History Father Myocardial infarct Mother Myocardial infarct Other Family history of premature coronary artery disease Hypertension Social History Smoking and tobacco status: current every day smoker cigarettes Packs smoked per day: 1 Years cigarettes smoked: 40 Quit status (tobacco): has tried quititng Second hand smoke exposure: Yes Smoking risk assessment/counseling performed?: Yes Alcohol intake: former Year of sobriety/quit date alcohol: 1979 Lives independently: Yes Household members: spouse Marital status: Current occupational status: disabled History of recent travel: No Current gender identity: Male Physical Exam Const: COMMON NORMALS: no acute distress GENERAL APPEARANCE: cooperative and comfortable ORIENTATION/CONSCIOUSNESS: Yes awake, Yes oriented to person, Yes oriented to place and Yes oriented to time HENMT: COMMON NORMALS: normocephalic, atraumatic, hearing grossly normal bilaterally, external ears normal, EAC's normal, TM's normal bilaterally, Normal nasal mucous membranes and turbinates present, moist oral mucous membranes and oropharynx normal HEAD & SCALP: normocephalic and atraumatic NOSE: Normal nasal mucous membranes and turbinates present EXTERNAL EAR: Yes external ears normal EXTERNAL AUDITORY CANAL: EAC's normal TYMPANIC MEMBRANE: TM's normal bilaterally Eye: COMMON NORMALS: Equal, round and reactive pupils present, EOMs intact bilaterally, conjunctivae normal and no scleral icterus CONJUNCTIVA: Yes conjunctivae normal PUPIL: Yes Equal, round and reactive pupils present Neck/C-Spine: COMMON NORMALS: full ROM, no lymphadenopathy, supple and no JVD Lymph: LYMPHATIC: no lymphadenopathy noted and no lymphedema noted Resp: COMMON NORMALS: normal respiratory effort, No retractions, No use of accessory muscles and clear to auscultation bilaterally AUSCULTATION: clear to auscultation bilaterally Cardio: COMMON NORMALS: no JVD, regular rate, regular rhythm and No murmurs present (Cardio) RATE: regular rate RHYTHM: regular rhythm GI: COMMON NORMALS: Soft to palpation and No hepatosplenomegaly present AUSCULTATION: Yes normoactive bowel sounds PALPATION: Yes Soft to palpation, No Tenderness to palpation present (GI), No Guarding due to palpation present (GI) and Yes No hepatosplenomegaly present Extremity: COMMON NORMALS: normal to inspection, capillary refill normal, no clubbing, cyanosis or edema, no calf tenderness and no pedal edema Neuro: SENSORIUM/ORIENTATION: Yes oriented to person, Yes oriented to place and Yes oriented to time Skin: COMMON NORMALS: no rashes or lesions noted GENERAL SKIN EXAM: no rashes or lesions noted Course Vital Signs: Vital signs: Vital Signs Temperature 97.9 F 12/09/19 09:55 Pulse Rate 79 12/09/19 12:44 Respiratory Rate 14 12/09/19 12:44 Blood Pressure 143/90 12/09/19 12:44 Pulse Oximetry 95 12/09/19 12:44 MDM - General Adult MDM Narrative: Medical decision making narrative: Viewed findings with patient. IV Lasix given here and will start on Lasix 40 p.o. daily recheck if he worsens follow-up with his primary care doctor in the next 4 to 5 days he will need a BMP return if he has any problems Lab Data: Labs: Lab Results 12/09/19 12/09/19 12/09/19 Range/Units 10:00 10:00 10:00 WBC 7.5 (4.0-10.0) 10^3/ uL RBC 4.37 (4.1-5.3) 10^6/u L Hgb 10.5 L (11.7-16.6) g/dL Hct 37.2 L (42.0-52.0) % MCV 85.1 (80-94) fL MCH 24.0 L (28.0-34.0) pg MCHC 28.2 L (30.0-36.0) g/dL RDW 21.3 H (12.1-15.1) % Plt Count 198 (130-400) 10^3/c mm MPV 9.6 (7.4-10.4) fL Neut % (Auto) 49.1 % Lymph % (Auto) 32.6 % [place] % (Auto) 11.1 % Eos % (Auto) 5.2 % Baso % (Auto) 1.6 % Neut # (Auto) 3.68 (1.8-7.7) 10^3/u L Lymph # (Auto) 2.4 (0.8-4.8) 10^3/u L [place] # (Auto) 0.8 (0.2-0.9) 10^3/u L Eos # (Auto) 0.4 (0.0-0.8) 10^3/u L Baso # (Auto) 0.1 (0.0-0.1) 10^3/u L Nucleated RBC % (a uto) 0 % Nucleated RBCs # 0.0 /100WBC PT (12.1-14.9) SECO NDS INR (0.8-1.2) Sodium 136 (136-145) mmol/L Potassium 3.7 (3.5-5.1) mmol/L Chloride 104 (98-107) mmol/L Carbon Dioxide 24 (22-29) mmol/L Anion Gap 11.7 (5-19) BUN 14 (8-23) mg/dL Creatinine 0.9 (0.7-1.2) mg/dL GFR Calculation 85.8 L (90-130) mL/min Glucose 96 (65-115) mg/dL Calculated Osmolal ity 278 L (285-295) mOsm/k g Calcium 8.7 (8.5-10.5) mg/dL Total Bilirubin 1.4 H (0.15-1.2) mg/dL AST 23 (0-40) U/L ALT 13 (0-41) U/L Alkaline Phosphata se 182 H (40-130) IU/L Troponin T Baselin e 35 H (0-15) ng/L Troponin T 120 Min lg (0-15) ng/L Delta Troponin T (0-10) ABS# NT-Pro-B Natriuret Pep 2060 H (0-125) pg/mL Total Protein 7.7 (6.6-8.7) g/dL Albumin 3.6 (3.5-5.2) g/dL Globulin 4.1 (1.3-4.6) g/dL Urine Color (Yellow) Urine Appearance (CLEAR) Urine pH (5-7) Ur Specific Gravit y (1.005-1.030) Urine Protein (Negative) Urine Glucose (UA) (Normal) Urine Ketones (Negative) Urine Blood (Negative) Urine Nitrate (Negative) Urine Bilirubin (NEGATIVE) Prot Sulfosalicyli c Acd (Negative) Urine Urobilinogen (Negative) mg/dL Ur Leukocyte Shayna ase (Negative) Urine RBC (0-2) /hpf Urine WBC (0-5) /hpf Ur Squamous Epith Cells (0-5) Amorphous Sediment Urine Bacteria (NONE) Urine Mucus 12/09/19 12/09/19 12/09/19 Range/Units 10:00 10:50 11:50 WBC (4.0-10.0) 10^3/ uL RBC (4.1-5.3) 10^6/u L Hgb (11.7-16.6) g/dL Hct (42.0-52.0) % MCV (80-94) fL MCH (28.0-34.0) pg MCHC (30.0-36.0) g/dL RDW (12.1-15.1) % Plt Count (130-400) 10^3/c mm MPV (7.4-10.4) fL Neut % (Auto) % Lymph % (Auto) % [place] % (Auto) % Eos % (Auto) % Baso % (Auto) % Neut # (Auto) (1.8-7.7) 10^3/u L Lymph # (Auto) (0.8-4.8) 10^3/u L [place] # (Auto) (0.2-0.9) 10^3/u L Eos # (Auto) (0.0-0.8) 10^3/u L Baso # (Auto) (0.0-0.1) 10^3/u L Nucleated RBC % (a uto) % Nucleated RBCs # /100WBC PT 30.00 H (12.1-14.9) SECO NDS INR 2.74 H (0.8-1.2) Sodium (136-145) mmol/L Potassium (3.5-5.1) mmol/L Chloride (98-107) mmol/L Carbon Dioxide (22-29) mmol/L Anion Gap (5-19) BUN (8-23) mg/dL Creatinine (0.7-1.2) mg/dL GFR Calculation (90-130) mL/min Glucose (65-115) mg/dL Calculated Osmolal ity (285-295) mOsm/k g Calcium (8.5-10.5) mg/dL Total Bilirubin (0.15-1.2) mg/dL AST (0-40) U/L ALT (0-41) U/L Alkaline Phosphata se (40-130) IU/L Troponin T Baselin e (0-15) ng/L Troponin T 120 Min lg 32.04 H (0-15) ng/L Delta Troponin T -2.96 L (0-10) ABS# NT-Pro-B Natriuret Pep (0-125) pg/mL Total Protein (6.6-8.7) g/dL Albumin (3.5-5.2) g/dL Globulin (1.3-4.6) g/dL Urine Color Yellow (Yellow) Urine Appearance Clear (CLEAR) Urine pH 8 H (5-7) Ur Specific Gravit y 1.015 (1.005-1.030) Urine Protein Neg (Negative) Urine Glucose (UA) Norm (Normal) Urine Ketones Negative (Negative) Urine Blood Trace H (Negative) Urine Nitrate Negative (Negative) Urine Bilirubin 1+ H (NEGATIVE) Prot Sulfosalicyli c Acd Negative (Negative) Urine Urobilinogen 4+ H (Negative) mg/dL Ur Leukocyte Shayna ase Negative (Negative) Urine RBC 0-4 H (0-2) /hpf Urine WBC 0-4 H (0-5) /hpf Ur Squamous Epith Cells 0-4 H (0-5) Amorphous Sediment Trace Urine Bacteria Trace (NONE) Urine Mucus Trace Discharge Plan Discharge Patient Disposition: Home Clinical Impression: CHF (congestive heart failure), Cardiomyopathy, Paroxysmal A-fib Condition: Stable Prescriptions: New Lasix 40 mg tablet 40 mg PO DAILY Qty: 30 RF: 0 No Action metolazone 2.5 mg tablet 2.5 mg PO PRN PRN (Reason: Edema) RF: 0 potassium chloride 20 mEq tablet extended release 10 meq PO BID PRN (Reason: WITH WATER PILL) RF: 0 nitroglycerin [Nitrostat] 0.4 mg tablet, sublingual 0.4 mg SUBLINGUAL Q5M PRN (Reason: Chest Pain) RF: 0 aspirin [Enteric Coated Aspirin] 81 mg tablet,delayed release (DR/EC) 81 mg PO DAILY RF: 0 torsemide 100 mg tablet 100 mg PO DAILY RF: 0 albuterol sulfate 2.5 mg /3 mL (0.083 %) solution for nebulization 2.5 mg INHALATION Q4H PRN (Reason: shortness of breath ) RF: 0 Stiolto Respimat 2.5-2.5 mcg/actuation mist 2 puff INHALATION Q24H 60 Days Qty: 4 RF: 2 Coumadin 2 mg tablet 6 mg PO DAILY 30 Days Qty: 90 RF: 3 atorvastatin 40 mg tablet 40 mg PO BEDTIME 30 Days Qty: 30 RF: 3 amiodarone 200 mg tablet 100 mg PO DAILY RF: 0 metoprolol succinate 25 mg tablet extended release 24 hr 12.5 mg PO DAILY RF: 0 levothyroxine 50 mcg tablet 25 mcg PO DAILY RF: 0 Discharge Orders: Discharge Order (Routine); Ordered 12/09/19 Ordered By: Conrad Holland Referrals: Yomi Amor MD [Physician] - Discharge Diet: Cardiac Discharge Activity: Increase activity as tolerated Patient Instructions: Congestive Heart Failure, Low Sodium Diet (ED) Discharge Date/Time: 12/09/19 12:45 Coding Level of Care Code ED Accounts Receivable Bookkeeper for Chg Fwd Exam Comprehensive
[2019-12-09] MEDS: FUROsemide 10 mg/mL SDV 4mL 40 MG IVP (11:57)
[2019-12-09 12:12] LABS: Troponin 5 2HR 32.04 ng/L (0-15)
[2019-12-09 12:18] LABS: Troponin 5 2HR Delta -2.96 ABS# (0-10)
[2019-12-09 12:24] LABS: INR 2.74 (0.8-1.2)
--- NOTE | 2019-12-09 12:29 | ECG_ITS ---
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 Measurements Intervals [place] Rate: 56 P: TN: -1 QRS: -70 QRSD: 105 T: 153 QT: 457 QTc: 444 Interpretive Statements Atrial fibrillation with demand ventricular pacing POSSIBLE ANTERIOR MYOCARDIAL INFARCTION , OF INDETERMINATE AGE Compared to ECG 12/09/2019 10:20:08 Left anterior fascicular block no longer present Myocardial infarct finding still present Electronically Signed On 12-09-2019 12:46:28 CDT by Anais Henderson M.D. [email or web address]/[id number] f
== END 2019-12-09 12:45 | disposition home or self-care (01) ==
PROVIDERS: Emergency Provider Family Medicine; PCP Internal Medicine
DX: I11.0 Hypertensive heart disease with heart failure (principal); I50.9 Heart failure, unspecified; I42.9 Cardiomyopathy, unspecified; I48.0 Paroxysmal atrial fibrillation; Z79.82 Long term (current) use of aspirin; F17.210 Nicotine dependence, cigarettes, uncomplicated; Z98.61 Coronary angioplasty status; Z95.0 Presence of cardiac pacemaker; I25.10 Atherosclerotic heart disease of native coronary artery without angina pectoris; Z86.73 Personal history of transient ischemic attack (TIA), and cerebral infarction without residual deficits; E78.5 Hyperlipidemia, unspecified
CPT/HCPCS: 12345; 36415; 71045; 80053; 81001; 83880; 84484; 85025; 85610; 93005; 96374; 96375; 99283; 99284; J1940

== ENCOUNTER → 2019-12-16 11:58 | Outpatient (BNVA) | payer MEDICARE, SELFPAY | PROVIDERS: PCP Internal Medicine; Visit Provider Internal Medicine | DX: R50.9 Fever, unspecified (principal) | CPT/HCPCS: 87635 ==

== ENCOUNTER → 2019-12-18 09:04 | Day surgery (SDC) | payer MEDICARE, SELFPAY ==
[2019-12-17 10:47] VITALS: BMI 38.2
[2019-12-18] MEDS: diphenhydrAMINE 50 mg Capsule PO (09:18)
--- NOTE | 2019-12-18 09:20 | SUR.PREOP ---
Upon questioning the patient about his last dose of Warfarin he stated that he just takes what his gives him. His , Nadia , was called and she stated that Mr. Gautam did not receive any instructions. Mr. Gautam states that he thought he was here for an echo cardiogram. His spouse states that he has not held any of his daily meds. Dr. Amor was made aware and the patient will be rescheduled so that he can hold his Warfarin for 3 days prior to the angiogram. The patient and his spouse was given typed and hand written instructions for his [facility] Monday December 23, 2019 with a check in time of 0600 and procedure time of 0700. They both verbalized their understanding.
== END ==
PROVIDERS: PCP Internal Medicine; Visit Provider Internal Medicine Cardiovascular Disease
DX: I25.10 Atherosclerotic heart disease of native coronary artery without angina pectoris (principal); Z79.01 Long term (current) use of anticoagulants; Z53.9 Procedure and treatment not carried out, unspecified reason
CPT/HCPCS: J1644; Q0163

== ENCOUNTER 2019-12-24 15:20 | Emergency (ER) | payer MEDICARE, SELFPAY ==
[2019-12-24 15:25] VITALS: BP 121/72; PULSE 60; RESP 18; TEMP 36.6; O2SAT 93; BMI 37.6
--- NOTE | 2019-12-24 15:33 | PC.NURSE ---
EKG done at 1530 and shown to ER doctor
--- NOTE | 2019-12-24 15:35 | XR_ITS ---
WS: [id number] EXAM: AP CHEST: PORTABLE UPRIGHT DATE OF EXAM: 12/24/2019, 1604 hours COMPARISON: Prior chest x-ray from 12/09/2019. HISTORY: Patient is 59 years old with dyspnea and cough. FINDINGS: The cardiac silhouette is enlarged but similar The mediastinal contours are similar. Left subclavi an dual lead pacer remains in place. The pulmonary vascularity is congested with findings suggestin g some degree of interstitial infiltrate/edema. No large area of consolidation. There is no effusion or pneumothorax. No acute bony abnormality is seen. XR/XR chest 1V portable [id number] IMPRESSION: Stable enlarged cardiac silhouette. Pulmonary vascular congestion. Interstitial infiltrate and/or edema demonstrated bilaterally. Primary consider ation is some degree of underlying congestive heart failure rather than interst itial pneumonitis.
--- NOTE | 2019-12-24 15:36 | ECG_ITS ---
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 Measurements Intervals [place] Rate: 63 P: MA: -1 QRS: -68 QRSD: 125 T: 100 QT: 421 QTc: 432 Interpretive Statements Atrial fibrillation ELECTRONIC VENTRICULAR PACEMAKER -- CONTOUR ANALYSIS BASED ON INTRINSIC RHYTHM LEFT ANTERIOR FASCICULAR BLOCK [QRS AXIS <= -45, QR IN I, RS IN II] INFERIOR MYOCARDIAL INFARCTION , PROBABLY OLD [40+ ms Q WAVE AND/OR ST/T ABNORMALITY IN II/aVF] MODERATE T-WAVE ABNORMALITY, CONSIDER LATERAL ISCHEMIA [-0.1+ mV T WAVE IN I/aVL/V5/V6] Compared to ECG 12/09/2019 12:08:07 No significant change Electronically Signed On 12-24-2019 20:25:54 CDT by Yomi Amor M.D. [email or web address]/store/NU/[id number]
--- NOTE | 2019-12-24 15:37 | W.ED.SYNCOPE ---
Documented by User: Conrad Holland DO 12/29/19 06:45 HPI - Syncope General: Chief Complaint: Syncope Stated Complaint: SYNCOPE Time Seen by Provider: 12/24/19 15:25 History of Present Illness: HPI narrative: 59-year-old male who presents emergency room via EMS after a syncopal episode at home. He had gone to the restroom and was on his way back into the bedroom to change close he felt like he was going to pass out so he went to the bed and actually did pass out on the bed was out for 5 to 7 minutes family members witnessed that were unable to arouse him and eventually called EMS. He denies any chest pain interestingly he is scheduled for angiography tomorrow. He had a COVID's swab and preparation for the procedure just for screening not because he was symptomatic. He did not have any witnessed tonic-clonic motions he denies any muscle ache or pain. He denies any respiratory symptoms or fever sweats or chills. MD complaint: loss of consciousness and collapsed Onset (ago): minute(s) Duration of episode: 5 -: minutes(s) Prodromal symptoms: lightheaded Witnessed: Family Context: during exertion and after urination Injuries sustained associated with event: none Associated symptoms: Deny abdominal pain, chest pain, fever(s), headache(s), lightheadedness, nausea, short of breath, vertigo or weakness History: previous syncopal episode, history of CAD and pacemaker Treatments prior to arrival: none Review of Systems Const: Denies: fever(s) ENMT: Denies: throat pain, ear or mastoid pain, nasal discharge or nasal congestion Card: Denies: chest pain or lightheadedness Resp: Denies: dyspnea, productive cough or non-productive cough GI: Denies: abdominal pain or nausea : Denies: flank pain, dysuria, urinary frequency or urinary urgency Skin/Breast: Denies: rash or pruritus Neuro: Denies: headache(s) or vertigo PFS ED PFSH: Medical History Anemia Atrial fibrillation CAD in [place] artery Cardiomyopathy CHF (congestive heart failure) Combined systolic and diastolic. LVEF by LV gram in 2017 was 40%. CVA (cerebral vascular accident) HTN (hypertension) Hyperlipidemia Hypotension Hypothyroid Nicotine dependence, cigarettes, with unspecified nicotine-induced disorders Orthostasis SALONI (obstructive sleep apnea) Pacemaker 2014- dual chamber Panlobular emphysema Paroxysmal A-fib PVD (peripheral vascular disease) Vitamin B12 deficiency Surgical History H/O coronary angioplasty 2013 H/O reduction of closed fracture ankle History of cardiac radiofrequency ablation (RFA) 15494 Hx of appendectomy S/P appendectomy Status cardiac pacemaker Family History Father Myocardial infarct Mother Myocardial infarct Other Family history of premature coronary artery disease Hypertension Social History Smoking and tobacco status: current every day smoker cigarettes Packs smoked per day: 1 Years cigarettes smoked: 40 Quit status (tobacco): has tried quititng Second hand smoke exposure: Yes Smoking risk assessment/counseling performed?: Yes Alcohol intake: former Year of sobriety/quit date alcohol: 1979 Lives independently: Yes Household members: spouse Marital status: Current occupational status: disabled History of recent travel: No Current gender identity: Male Physical Exam Const: COMMON NORMALS: no acute distress GENERAL APPEARANCE: cooperative and comfortable ORIENTATION/CONSCIOUSNESS: Yes awake, Yes oriented to person, Yes oriented to place and Yes oriented to time HENMT: COMMON NORMALS: normocephalic, atraumatic and hearing grossly normal bilaterally HEAD & SCALP: normocephalic and atraumatic Eye: COMMON NORMALS: Equal, round and reactive pupils present, EOMs intact bilaterally, conjunctivae normal and no scleral icterus CONJUNCTIVA: Yes conjunctivae normal PUPIL: Yes Equal, round and reactive pupils present Neck/C-Spine: COMMON NORMALS: full ROM, no lymphadenopathy, supple and no JVD Lymph: LYMPHATIC: no lymphadenopathy noted and no lymphedema noted Resp: COMMON NORMALS: normal respiratory effort, No retractions, No use of accessory muscles and clear to auscultation bilaterally AUSCULTATION: clear to auscultation bilaterally Cardio: COMMON NORMALS: no JVD, regular rate, regular rhythm and No murmurs present (Cardio) RATE: regular rate RHYTHM: regular rhythm GI: COMMON NORMALS: Soft to palpation and No hepatosplenomegaly present AUSCULTATION: Yes normoactive bowel sounds PALPATION: Yes Soft to palpation, No Tenderness to palpation present (GI), No Guarding due to palpation present (GI) and Yes No hepatosplenomegaly present Extremity: COMMON NORMALS: normal to inspection, capillary refill normal, no clubbing, cyanosis or edema, no calf tenderness and no pedal edema Neuro: SENSORIUM/ORIENTATION: Yes oriented to person, Yes oriented to place and Yes oriented to time Skin: COMMON NORMALS: no rashes or lesions noted GENERAL SKIN EXAM: no rashes or lesions noted Course Vital Signs: Vital signs: Vital Signs Temperature 97.9 F 12/24/19 15:25 Pulse Rate 65 12/24/19 18:38 Respiratory Rate 20 H 12/24/19 18:38 Blood Pressure 108/65 12/24/19 18:38 Pulse Oximetry 93 12/24/19 18:38 MDM - Syncope MDM Narrative: Medical decision making narrative: Care turned over to Dr. Suarez at change of shift see his notes for final diagnosis and disposition Lab Data: Labs: Lab Results 12/24/19 12/24/19 12/24/19 Range/Units 15:37 15:37 15:37 WBC 7.5 (4.0-10.0) 10^3/ uL RBC 4.39 (4.1-5.3) 10^6/u L Hgb 10.5 L (11.7-16.6) g/dL Hct 36.4 L (42.0-52.0) % MCV 82.9 (80-94) fL MCH 23.9 L (28.0-34.0) pg MCHC 28.8 L (30.0-36.0) g/dL RDW 20.9 H (12.1-15.1) % Plt Count 241 (130-400) 10^3/c mm MPV 9.1 (7.4-10.4) fL Neut % (Auto) 54.0 % Lymph % (Auto) 28.0 % [place] % (Auto) 11.8 % Eos % (Auto) 4.6 % Baso % (Auto) 1.2 % Neut # (Auto) 4.04 (1.8-7.7) 10^3/u L Lymph # (Auto) 2.1 (0.8-4.8) 10^3/u L [place] # (Auto) 0.9 (0.2-0.9) 10^3/u L Eos # (Auto) 0.3 (0.0-0.8) 10^3/u L Baso # (Auto) 0.1 (0.0-0.1) 10^3/u L Nucleated RBC % (a uto) 0 % Nucleated RBCs # 0.0 /100WBC Sodium 135 L (136-145) mmol/L Potassium 3.0 L (3.5-5.1) mmol/L Chloride 95 L (98-107) mmol/L Carbon Dioxide 29 (22-29) mmol/L Anion Gap 14.0 (5-19) BUN 15 (8-23) mg/dL Creatinine 1.0 (0.7-1.2) mg/dL GFR Calculation 76.0 L (90-130) mL/min Glucose 108 (65-115) mg/dL Calculated Osmolal ity 277 L (285-295) mOsm/k g Calcium 8.7 (8.5-10.5) mg/dL Magnesium 1.7 (1.7-2.3) mg/dL Total Bilirubin 1.9 H (0.15-1.2) mg/dL AST 26 (0-40) U/L ALT 15 (0-41) U/L Alkaline Phosphata se 193 H (40-130) IU/L Troponin T Baselin e 47 H (0-15) ng/L Troponin T 120 Min [place] (0-15) ng/L Delta Troponin T (0-10) ABS# Total Protein 7.8 (6.6-8.7) g/dL Albumin 3.7 (3.5-5.2) g/dL Globulin 4.1 (1.3-4.6) g/dL Urine Color (Yellow) Urine Appearance (CLEAR) Urine pH (5-7) Ur Specific Gravit y (1.005-1.030) Urine Protein (Negative) Urine Glucose (UA) (Normal) Urine Ketones (Negative) Urine Blood (Negative) Urine Nitrate (Negative) Urine Bilirubin (NEGATIVE) Urine Urobilinogen (Negative) mg/dL Ur Leukocyte Shayna ase (Negative) 12/24/19 12/24/19 Range/Units 15:38 17:47 WBC (4.0-10.0) 10^3/ uL RBC (4.1-5.3) 10^6/u L Hgb (11.7-16.6) g/dL Hct (42.0-52.0) % MCV (80-94) fL MCH (28.0-34.0) pg MCHC (30.0-36.0) g/dL RDW (12.1-15.1) % Plt Count (130-400) 10^3/c mm MPV (7.4-10.4) fL Neut % (Auto) % Lymph % (Auto) % [place] % (Auto) % Eos % (Auto) % Baso % (Auto) % Neut # (Auto) (1.8-7.7) 10^3/u L Lymph # (Auto) (0.8-4.8) 10^3/u L [place] # (Auto) (0.2-0.9) 10^3/u L Eos # (Auto) (0.0-0.8) 10^3/u L Baso # (Auto) (0.0-0.1) 10^3/u L Nucleated RBC % (a uto) % Nucleated RBCs # /100WBC Sodium (136-145) mmol/L Potassium (3.5-5.1) mmol/L Chloride (98-107) mmol/L Carbon Dioxide (22-29) mmol/L Anion Gap (5-19) BUN (8-23) mg/dL Creatinine (0.7-1.2) mg/dL GFR Calculation (90-130) mL/min Glucose (65-115) mg/dL Calculated Osmolal ity (285-295) mOsm/k g Calcium (8.5-10.5) mg/dL Magnesium (1.7-2.3) mg/dL Total Bilirubin (0.15-1.2) mg/dL AST (0-40) U/L ALT (0-41) U/L Alkaline Phosphata se (40-130) IU/L Troponin T Baselin e (0-15) ng/L Troponin T 120 Min [place] 47.29 H (0-15) ng/L Delta Troponin T 0.29 (0-10) ABS# Total Protein (6.6-8.7) g/dL Albumin (3.5-5.2) g/dL Globulin (1.3-4.6) g/dL Urine Color Yellow (Yellow) Urine Appearance Clear (CLEAR) Urine pH 7 (5-7) Ur Specific Gravit y 1.005 (1.005-1.030) Urine Protein Neg (Negative) Urine Glucose (UA) Norm (Normal) Urine Ketones Negative (Negative) Urine Blood Neg (Negative) Urine Nitrate Negative (Negative) Urine Bilirubin Neg (NEGATIVE) Urine Urobilinogen 1 H (Negative) mg/dL Ur Leukocyte Shayna ase Negative (Negative) Discharge Plan Discharge Patient Disposition: Home Clinical Impression: Syncopal episodes Condition: Stable Prescriptions: No Action metolazone 2.5 mg tablet 2.5 mg PO PRN PRN (Reason: Edema) RF: 0 potassium chloride 20 mEq tablet extended release 20 meq PO BID PRN (Reason: WITH WATER PILL) RF: 0 nitroglycerin [Nitrostat] 0.4 mg tablet, sublingual 0.4 mg SUBLINGUAL Q5M PRN (Reason: Chest Pain) RF: 0 aspirin [Enteric Coated Aspirin] 81 mg tablet,delayed release (DR/EC) 81 mg PO DAILY RF: 0 albuterol sulfate 2.5 mg /3 mL (0.083 %) solution for nebulization 2.5 mg INHALATION Q4H PRN (Reason: shortness of breath ) RF: 0 Stiolto Respimat 2.5-2.5 mcg/actuation mist 2 puff INHALATION Q24H 60 Days Qty: 4 RF: 2 torsemide 100 mg tablet 100 mg PO DAILY Qty: 90 RF: 2 atorvastatin 40 mg tablet 40 mg PO BEDTIME 30 Days Qty: 30 RF: 3 amiodarone 200 mg tablet 200 mg PO DAILY RF: 0 metoprolol succinate 25 mg tablet extended release 24 hr 50 mg PO BEDTIME RF: 0 levothyroxine 50 mcg tablet 25 mcg PO DAILY RF: 0 warfarin [Coumadin] 2 mg tablet See Rx Instructions .ROUTE .COMPLEX RF: 0 Discharge Orders: Discharge Order (Routine); Ordered 12/24/19 Ordered By: Henna Suarez Referrals: Ahmet Jasso MD [Primary Care Provider] - Discharge Diet: Usual diet Discharge Activity: Limit activity as instructed Patient Instructions: Syncope (ED) Discharge Date/Time: 12/24/19 18:38 Coding Level of Care Code ED Modeling Agent for Chg Fwd Exam Comprehensive Documented by User: Henna Suarez MD 12/24/19 18:30 HPI - Syncope General: Chief Complaint: Syncope Stated Complaint: SYNCOPE Time Seen by Provider: 12/24/19 15:25 PFSH ED PFSH: Medical History Anemia Atrial fibrillation CAD in [place] artery Cardiomyopathy CHF (congestive heart failure) Combined systolic and diastolic. LVEF by LV gram in 2017 was 40%. CVA (cerebral vascular accident) HTN (hypertension) Hyperlipidemia Hypotension Hypothyroid Nicotine dependence, cigarettes, with unspecified nicotine-induced disorders Orthostasis SALONI (obstructive sleep apnea) Pacemaker 2014- dual chamber Panlobular emphysema Paroxysmal A-fib PVD (peripheral vascular disease) Vitamin B12 deficiency Surgical History H/O coronary angioplasty 2013 H/O reduction of closed fracture ankle History of cardiac radiofrequency ablation (RFA) 67764 Hx of appendectomy S/P appendectomy Status cardiac pacemaker Family History Father Myocardial infarct Mother Myocardial infarct Other Family history of premature coronary artery disease Hypertension Social History Smoking and tobacco status: current every day smoker cigarettes Packs smoked per day: 1 Years cigarettes smoked: 40 Quit status (tobacco): has tried quititng Second hand smoke exposure: Yes Smoking risk assessment/counseling performed?: Yes Alcohol intake: former Year of sobriety/quit date alcohol: 1980 Lives independently: Yes Household members: spouse Marital status: Current occupational status: disabled History of recent travel: No Current gender identity: Male Course Vital Signs: Vital signs: Vital Signs Temperature 97.9 F 12/24/19 15:25 Pulse Rate 65 12/24/19 18:38 Respiratory Rate 20 H 12/24/19 18:38 Blood Pressure 108/65 12/24/19 18:38 Pulse Oximetry 93 12/24/19 18:38 MDM - Syncope MDM Narrative: Medical decision making narrative: I took patient over from Dr. Alfonso follow-up 2-hour troponin. Patient's 2-hour troponin here is unchanged. Patient is stable for discharge. Patient is to return tomorrow morning for his cardiac cath as scheduled. He has no signs of pulmonary bruising. Patient's been pain-free here. Lab Data: Labs: Lab Results 12/24/19 12/24/19 12/24/19 Range/Units 15:37 15:37 15:37 WBC 7.5 (4.0-10.0) 10^3/ uL RBC 4.39 (4.1-5.3) 10^6/u L Hgb 10.5 L (11.7-16.6) g/dL Hct 36.4 L (42.0-52.0) % MCV 82.9 (80-94) fL MCH 23.9 L (28.0-34.0) pg MCHC 28.8 L (30.0-36.0) g/dL RDW 20.9 H (12.1-15.1) % Plt Count 241 (130-400) 10^3/c mm MPV 9.1 (7.4-10.4) fL Neut % (Auto) 54.0 % Lymph % (Auto) 28.0 % [place] % (Auto) 11.8 % Eos % (Auto) 4.6 % Baso % (Auto) 1.2 % Neut # (Auto) 4.04 (1.8-7.7) 10^3/u L Lymph # (Auto) 2.1 (0.8-4.8) 10^3/u L [place] # (Auto) 0.9 (0.2-0.9) 10^3/u L Eos # (Auto) 0.3 (0.0-0.8) 10^3/u L Baso # (Auto) 0.1 (0.0-0.1) 10^3/u L Nucleated RBC % (a uto) 0 % Nucleated RBCs # 0.0 /100WBC Sodium 135 L (136-145) mmol/L Potassium 3.0 L (3.5-5.1) mmol/L Chloride 95 L (98-107) mmol/L Carbon Dioxide 29 (22-29) mmol/L Anion Gap 14.0 (5-19) BUN 15 (8-23) mg/dL Creatinine 1.0 (0.7-1.2) mg/dL GFR Calculation 76.0 L (90-130) mL/min Glucose 108 (65-115) mg/dL Calculated Osmolal ity 277 L (285-295) mOsm/k g Calcium 8.7 (8.5-10.5) mg/dL Magnesium 1.7 (1.7-2.3) mg/dL Total Bilirubin 1.9 H (0.15-1.2) mg/dL AST 26 (0-40) U/L ALT 15 (0-41) U/L Alkaline Phosphata se 193 H (40-130) IU/L Troponin T Baselin e 47 H (0-15) ng/L Troponin T 120 Min [place] (0-15) ng/L Delta Troponin T (0-10) ABS# Total Protein 7.8 (6.6-8.7) g/dL Albumin 3.7 (3.5-5.2) g/dL Globulin 4.1 (1.3-4.6) g/dL Urine Color (Yellow) Urine Appearance (CLEAR) Urine pH (5-7) Ur Specific Gravit y (1.005-1.030) Urine Protein (Negative) Urine Glucose (UA) (Normal) Urine Ketones (Negative) Urine Blood (Negative) Urine Nitrate (Negative) Urine Bilirubin (NEGATIVE) Urine Urobilinogen (Negative) mg/dL Ur Leukocyte Shayna ase (Negative) 12/24/19 12/24/19 Range/Units 15:38 17:47 WBC (4.0-10.0) 10^3/ uL RBC (4.1-5.3) 10^6/u L Hgb (11.7-16.6) g/dL Hct (42.0-52.0) % MCV (80-94) fL MCH (28.0-34.0) pg MCHC (30.0-36.0) g/dL RDW (12.1-15.1) % Plt Count (130-400) 10^3/c mm MPV (7.4-10.4) fL Neut % (Auto) % Lymph % (Auto) % [place] % (Auto) % Eos % (Auto) % Baso % (Auto) % Neut # (Auto) (1.8-7.7) 10^3/u L Lymph # (Auto) (0.8-4.8) 10^3/u L [place] # (Auto) (0.2-0.9) 10^3/u L Eos # (Auto) (0.0-0.8) 10^3/u L Baso # (Auto) (0.0-0.1) 10^3/u L Nucleated RBC % (a uto) % Nucleated RBCs # /100WBC Sodium (136-145) mmol/L Potassium (3.5-5.1) mmol/L Chloride (98-107) mmol/L Carbon Dioxide (22-29) mmol/L Anion Gap (5-19) BUN (8-23) mg/dL Creatinine (0.7-1.2) mg/dL GFR Calculation (90-130) mL/min Glucose (65-115) mg/dL Calculated Osmolal ity (285-295) mOsm/k g Calcium (8.5-10.5) mg/dL Magnesium (1.7-2.3) mg/dL Total Bilirubin (0.15-1.2) mg/dL AST (0-40) U/L ALT (0-41) U/L Alkaline Phosphata se (40-130) IU/L Troponin T Baselin e (0-15) ng/L Troponin T 120 Min [place] 47.29 H (0-15) ng/L Delta Troponin T 0.29 (0-10) ABS# Total Protein (6.6-8.7) g/dL Albumin (3.5-5.2) g/dL Globulin (1.3-4.6) g/dL Urine Color Yellow (Yellow) Urine Appearance Clear (CLEAR) Urine pH 7 (5-7) Ur Specific Gravit y 1.005 (1.005-1.030) Urine Protein Neg (Negative) Urine Glucose (UA) Norm (Normal) Urine Ketones Negative (Negative) Urine Blood Neg (Negative) Urine Nitrate Negative (Negative) Urine Bilirubin Neg (NEGATIVE) Urine Urobilinogen 1 H (Negative) mg/dL Ur Leukocyte Shayna ase Negative (Negative) Discharge Plan Discharge Patient Disposition: Home Clinical Impression: Syncopal episodes Condition: Stable Prescriptions: No Action metolazone 2.5 mg tablet 2.5 mg PO PRN PRN (Reason: Edema) RF: 0 potassium chloride 20 mEq tablet extended release 20 meq PO BID PRN (Reason: WITH WATER PILL) RF: 0 nitroglycerin [Nitrostat] 0.4 mg tablet, sublingual 0.4 mg SUBLINGUAL Q5M PRN (Reason: Chest Pain) RF: 0 aspirin [Enteric Coated Aspirin] 81 mg tablet,delayed release (DR/EC) 81 mg PO DAILY RF: 0 albuterol sulfate 2.5 mg /3 mL (0.083 %) solution for nebulization 2.5 mg INHALATION Q4H PRN (Reason: shortness of breath ) RF: 0 Stiolto Respimat 2.5-2.5 mcg/actuation mist 2 puff INHALATION Q24H 60 Days Qty: 4 RF: 2 torsemide 100 mg tablet 100 mg PO DAILY Qty: 90 RF: 2 atorvastatin 40 mg tablet 40 mg PO BEDTIME 30 Days Qty: 30 RF: 3 amiodarone 200 mg tablet 200 mg PO DAILY RF: 0 metoprolol succinate 25 mg tablet extended release 24 hr 50 mg PO BEDTIME RF: 0 levothyroxine 50 mcg tablet 25 mcg PO DAILY RF: 0 warfarin [Coumadin] 2 mg tablet See Rx Instructions .ROUTE .COMPLEX RF: 0 Discharge Orders: Discharge Order (Routine); Ordered 12/24/19 Ordered By: Henna Suarez Referrals: Ahmet Jasso MD [Primary Care Provider] - Discharge Diet: Usual diet Discharge Activity: Limit activity as instructed Patient Instructions: Syncope (ED) Discharge Date/Time: 12/24/19 18:38 Coding Level of Care Code ED Modeling Agent for Kapilg Fwd Exam Comprehensive
[2019-12-24 15:38] VITALS: BP 128/76; PULSE 69; RESP 17; O2SAT 95
[2019-12-24 15:45] LABS: Basophils # 0.1 10^3/uL (0.0-0.1); Basophils % 1.2 %; Eosinophils # 0.3 10^3/uL (0.0-0.8); Eosinophils % 4.6 %; Hematocrit 36.4 % (42.0-52.0); Hemoglobin 10.5 g/dL (11.7-16.6); Lymphocytes # 2.1 10^3/uL (0.8-4.8); Mean Corpuscular HGB Conc 28.8 g/dL (30.0-36.0); Mean Corpuscular Hemoglobin 23.9 pg (28.0-34.0); Mean Corpuscular Volume 82.9 fL (80-94); Mean Platelet Volume 9.1 fL (7.4-10.4); Monocytes # 0.9 10^3/uL (0.2-0.9); Monocytes % 11.8 %; Neutrophils # 4.04 10^3/uL (1.8-7.7); Nucleated Red Blood Cells % 0 %; Platelet Count 241 10^3/cmm (130-400); Red Blood Count 4.39 10^6/uL (4.1-5.3); Red Cell Distribution Width 20.9 % (12.1-15.1); White Blood Count 7.5 10^3/uL (4.0-10.0)
[2019-12-24 15:47] LABS: Add Urine Microscopic? NO
[2019-12-24 16:04] LABS: Alanine Aminotransferase 15 U/L (0-41); Albumin Level 3.7 g/dL (3.5-5.2); Alkaline Phosphatase 193 IU/L (40-130); Aspartate Amino Transferase 26 U/L (0-40); Blood Urea Nitrogen 15 mg/dL (8-23); Calcium 8.7 mg/dL (8.5-10.5); Carbon Dioxide 29 mmol/L (22-29); Chloride 95 mmol/L (98-107); Globulin 4.1 g/dL (1.3-4.6); Glucose 108 mg/dL (65-115); Magnesium 1.7 mg/dL (1.7-2.3); Osmolality Calculated 277 mOsm/kg (285-295); Sodium 135 mmol/L (136-145); Total Bilirubin 1.9 mg/dL (0.15-1.2); Total Protein 7.8 g/dL (6.6-8.7)
[2019-12-24 16:06] LABS: Troponin(5th) Baseline 47 ng/L (0-15)
[2019-12-24 16:25] LABS: Bilirubin Urine Neg (NEGATIVE); Blood Urine Neg (Negative); Glucose Urine UA Norm (Normal); Ketones Urine Negative (Negative); Leukocyte Esterase Urine Negative (Negative); Nitrate Urine Negative (Negative); Protein Urine Neg (Negative); Specific Gravity, Urine 1.005 (1.005-1.030); Urine Appearance Clear (CLEAR); Urine Color Yellow (Yellow); Urobilinogen Urine 1 mg/dL (Negative); pH Urine 7 (5-7)
[2019-12-24 17:10] VITALS: BP 126/89; PULSE 71; RESP 20
--- NOTE | 2019-12-24 17:36 | ECG_ITS ---
[facility] Test Date: 2019-12-24 Pat Name: Leroy Gautam Department: Room: Gender: Male Care Program Resident: : 1960 Requested By: Conrad Burrell Order Number: [id number] Darshan MD: Yomi Amor M.D. Measurements Intervals [place] Rate: 63 P: [place]: -1 QRS: 262 QRSD: 217 T: 82 QT: 606 QTc: 621 Interpretive Statements ELECTRONIC VENTRICULAR PACEMAKER PROLONGED QT INTERVAL CRITICAL TEST RESULT Compared to ECG 12/24/2019 15:30:38 Prolonged QT interval now present Left anterior fascicular block no longer present Myocardial infarct finding no longer present T-wave abnormality no longer present Possible ischemia no longer present Electronically Signed On 12-24-2019 20:27:58 CDT by Yomi Amor M.D. [id number]
[2019-12-24 18:04] VITALS: BP 121/85; PULSE 66; RESP 20; O2SAT 96
[2019-12-24 18:16] LABS: Troponin 5 2HR 47.29 ng/L (0-15); Troponin 5 2HR Delta 0.29 ABS# (0-10)
[2019-12-24 18:38] VITALS: BP 108/65; PULSE 65; RESP 20; O2SAT 93
== END 2019-12-24 18:38 | disposition home or self-care (01) ==
PROVIDERS: Family Medicine; Emergency Provider Emergency Medicine; PCP Internal Medicine
DX: R55 Syncope and collapse (principal); Z79.82 Long term (current) use of aspirin; I48.91 Unspecified atrial fibrillation; I25.10 Atherosclerotic heart disease of native coronary artery without angina pectoris; I11.0 Hypertensive heart disease with heart failure; I50.40 Unspecified combined systolic (congestive) and diastolic (congestive) heart failure; Z86.73 Personal history of transient ischemic attack (TIA), and cerebral infarction without residual deficits; E78.5 Hyperlipidemia, unspecified; Z95.0 Presence of cardiac pacemaker; Z98.61 Coronary angioplasty status; F17.210 Nicotine dependence, cigarettes, uncomplicated
CPT/HCPCS: 12345; 36415; 71045; 80053; 81003; 83735; 84484; 85025; 93005; 99283; 99284

== ENCOUNTER 2019-12-25 06:46 | Day surgery (SDC) | payer MEDICARE, SELFPAY ==
[2019-12-25] VITALS (30 sets, daily range): BP systolic 118–154; BP diastolic 72–102; PULSE 58–107; RESP 16–22; TEMP 35.8–36.7; O2SAT 94–98; BMI 38.2
--- NOTE | 2019-12-25 07:19 | XACV_ITS ---
Exam Room: [facility] Ht: 180 cm Wt: 124 kg BSA: 2.54 m2 Gender: Male : 1960 Any Known Allergies: No known allergies Exam Priority: Routine Procedure(s): Procedure Description: Diagnostic procedure Procedure Description: Left Heart Catheterization Procedure Description: Left ventriculography Procedure Description: Coronary Angiography Diagnostic Findings LM has 0% stenosis. CX has 0% stenosis. dLAD: Mild 40% stenosis, SHAHEEN: 3 flow. pRCA: Mild 30% stenosis, SHAHEEN: 3 flow. Coronary angiography shows right dominance. Conclusions There is mild coronary artery disease with two vessel disease. Mild left ventricular systolic dysfunction. Ejection fraction of 45%. Indication for coronary injury gram: Worsening of heart failure and LV function , cardiomyopathy , syncope. Recommendations Continue current medical management and risk factor modification. Diagnostic RX Recommendation: medical therapy and/or counseling Ejection Fraction: 45.0 % Pressures Phase:Rest AO : 96 mmHg / 72 mmHg ( 83 mmHg ) @ 4:12:00 AM 97 mmHg / 71 mmHg ( 83 mmHg ) @ 4:15:00 AM 112 mmHg / 60 mmHg ( 85 mmHg ) @ 4:23:00 AM 109 mmHg / 69 mmHg ( 87 mmHg ) @ 4:23:00 AM LV : 123 mmHg / 3 mmHg / @ 4:21:00 AM 122 mmHg / 4 mmHg / @ 4:23:00 AM 123 mmHg / 4 mmHg / @ 4:23:00 AM Valves Phase:DefaultPhase AV : 7.0 mmHg @ 9:37:28 AM AV Mean Gradient: 13.0 mmHg @ 9:37:28 AM Clinical Evaluation EBL: 5mL-10mL Procedural Details Procedure Consent Obtained. Pre-Procedure Time Out. Identified patient by full name and date of as verbalized by the patient/guarantor. Does the consent match the physician's order: Yes. Accurate & Complete Informed Consent: Yes. Inpatient/Outpatient History & Physical on Chart: Yes. If H&P is completed, is and addenduem needed: N/A; If yes, is the addendum complete: N/A. Visualize and Verify Site with Patient/Guarantor: N/A. Relevant Radiology Images available: Yes. Pre-op teaching completed and patient verbalized understanding. The risks, benefits, and alternatives of sedation and/or procedure were discussed by physician. The patient agrees to continue. Procedure started. Correct patient, site and procedure confirmed by cath team. PERRLA. 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 Lungs clear x 5 lobes. IV Site on Arrival: 20 gauge in the left anticubital. IV Fluids: 0.9% NaCl at KVO. 0 mL infused prior to stucco laborer. Pre Procedural Pulses: right radial was 3+. Pre Procedural Pulses: left radial was 1+. Oxygen started at 2liters/min via nasal canula. right radial was prepped with chloroprep then draped in the usual sterile fashion. right groin was prepped with chloroprep then draped in the usual sterile fashion. Physician notified. Equipment: 6F - Radial. Cardiac Cath Pack. ACIST Manifold Kit Model BT 2000. Heparinized Saline (2 units/mL), 1000 mL bag. Baseline sample Acquired. HR: 62 BPM. Physician arrived. Physician scrubbed in. Immediate Pre-Procedure Time Out. Correct Patient: Yes; Correct Procedure: Yes; Correct Site: Yes; Correct Patient Position: Yes; Correct Supplies: Yes; Dried Flammable Prep: Yes; Blood Products Available: No;. family called. Lidocaine 1% infiltrated to the right radial. Arterial access obtained. A 5 togolese Eric catheter in over wire. wire out. Catheter redirected to the RCA. Multiple views taken of right coronary artery. Catheter out. A 5 togolese Angled Pig catheter in over wire. EDP Sample taken: LV 123/3,19; HR: 66 BPM; SpO2: 97%. LV gram performed in GARCIA @ 10 mL/second for a total of 30 mL. EDP Sample taken: LV 122/4,16; HR: 61 BPM; SpO2: 97%. Pullback taken: LV 123/4,15; AO 109/69(87); Mean: 13mmHg, Peak to Peak: 7mmHg, SEP: 9sec/min; HR: 56 BPM; SpO2: 96%. A TR Band was successful obtaining hemostatsis at the Right Radial artery insertion site. TR band placed. Hemostasis obtained. Post Procedure: Pulses reassessed and unchanged. PERRLA. 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 No VTE prophylaxis required. Medication's Wasted: Nitro = 49.8 mg. Medication's Wasted: Lidocaine 1% = 18 mL. Medication's Wasted: Heparin = 1000 units. Medication's Wasted: Other = fentanyl 50 mcg. Medication's Wasted: Other = versed 2 mg. Total IV fluids: 75 mL. Fluoro: 4:10. Contrast type used: Omnipaque 300 mgI/mL, 500 mL bottle. [id number]. Post-op diagnosis: no cad. Complications: none. Estimated blood loss: 5mL-10mL. Procedure completed. Patient transferred by wheelchair to 1st floor. Vital chart was stopped. [facility] Clinical Fraility Score: 3: Managing Well. Aviation Consultant Indications: Cardiomyopathy. Aviation Consultant Indications: LV Dysfunction. Chest Pain Symptom Assessment: Atypical Angina. Cardiovascular Instability: No. Site: Right Radial artery Sheath Size: 6 Fr Hemostasis Method: TR Band Hemostasis Success: Successful Procedure Medications Start: 8:49 AM Stop: 8:49 AM Medication: Fentanyl Amount: 50 mcg Start: 8:54 AM Stop: 8:54 AM Medication: Versed Amount: 1 mg Route: I.V. Start: 8:59 AM Stop: 8:59 AM Medication: Versed Amount: 1 mg Route: I.V. Start: 9:08 AM Stop: 9:08 AM Medication: Nitrogylcerin Amount: 200 mcg Route: I.A. Start: 9:11 AM Stop: 9:11 AM Medication: Heparin Amount: 5000 units Route: I.V. Start: 9:15 AM Stop: 9:15 AM Medication: Versed Amount: 1 mg Route: I.V. I, the attending physician, have reviewed and verified all procedure medications. Yes, all medications given per verbal order History/Risk Factors Hypertension: Yes Dyslipidemia: Yes Peripheral Arterial Disease (PAD): No Myocardial Infarction (DC): No Obesity: No Renal Disease: No Tobacco Use: Current/Recent(w/in 1 year) Prior Interventions PCI: Yes CABG: No Valve Surgery: No Date of PCI: 08/07/2015 Report Signatures Finalized by:Yomi Amor MD on 01/03/2020 4:00:43 PM
[2019-12-25] MEDS: diphenhydrAMINE 50 mg Capsule PO (07:30)
[2019-12-25 07:57] LABS: INR 1.26 (0.8-1.2)
--- NOTE | 2019-12-25 09:45 | PC.NURSE ---
patient in room from medical lab technologist Tr band in place
--- NOTE | 2019-12-25 09:53 | W.PM.OPSUD ---
Surgery/Procedure H&P Update DATE OF PROCEDURE: December 25, 2019 DATE H&P PERFORMED: 11/28/19 H&P UPDATE INFORMATION: I have reviewed H&P completed within last 30 days, I have examined patient prior to procedure and No changes to prior documentation PREOP DIAGNOSIS: Recurrent syncope with drop in ejection fraction to 30%, worsening left ventricle function, recurrent heart failure PLANNED PROCEDURE: Operation Date: 12/25/19 08:30 Proposed Procedures p Cardiac Catheterization(Left) - Yomi Amor MD PATIENT REASSESSED PRIOR TO SEDATION, WITH NO CHANGE NOTED: Yes PHYSICAL EXAM: alert, oriented x 3, clear to auscultation bilaterally and regular rate & rhythm AIRWAY EVAL/ANESTHESIA PLAN: ASA II, Risks, benefits & alternatives of sedation and/or procedure discussed and Patient agrees to continue as planned
--- NOTE | 2019-12-25 10:02 | PC.NURSE ---
patient reports he took medication prior to admission
--- NOTE | 2019-12-25 12:58 | PC.NURSE ---
Dr montalvo at bedside for assessment and discussion of POC verbal instructions to give 60mg IVP lasix x1 now and 40 meq potassium po x1 now. instruction repeated and confirmed, hold discharge; Zuleyma to reassess patient in 3-4 hours
[2019-12-25] MEDS: potassium chloride ER 10 mEq Tablet 40 MEQ PO (13:59)
[2019-12-25] MEDS: FUROsemide 10 mg/mL SDV 10mL 60 MG IVP (14:00)
--- NOTE | 2019-12-25 14:28 | PC.NURSE ---
patient refuses to use the urinal although has had 2 void post Lasix
--- NOTE | 2019-12-25 14:54 | PC.NURSE ---
patient standing at nurse station at this time denies any needs
--- NOTE | 2019-12-25 16:45 | PC.NURSE ---
Patient discharged home at this time. Discharge instructions given and explained. post angiogram home care instructions explained to patient. Patient given follow up appointments. Patient verbalized understanding of all instructions given. IV discontinued cath intact min bleeding noted dressing applied. Patient spoke with for her to come get him. When asked patient about his ride he stated she will be here shortly I would like to sit out side on the bench in the sunshine to wait for her explained to patient he was able and welcome to stay in room until she arrived patient declined and again asked to go outside and wait for her patients wishes granted, patient assisted to wheel chair and accompanied by staff to side walk at main entrance and assisted to park bench per his request. Patient alert oriented and in stable condition. All belongings including discharge instructions in hand.
== END 2019-12-25 16:38 | disposition home or self-care (01) ==
LOC: CCL 06:54 → CSU 07:58
PROVIDERS: PCP Internal Medicine; Visit Provider Internal Medicine Cardiovascular Disease
DX: R55 Syncope and collapse (principal); I25.10 Atherosclerotic heart disease of native coronary artery without angina pectoris; I11.0 Hypertensive heart disease with heart failure; I50.9 Heart failure, unspecified; I42.9 Cardiomyopathy, unspecified; E78.5 Hyperlipidemia, unspecified; Z95.5 Presence of coronary angioplasty implant and graft
CPT/HCPCS: 12345; 36415; 85610; 93452; C1769; C1887; C1894; J1644; J1940; J2250; J3010; J3490; J7030; Q0163; Q9967

== ENCOUNTER → 2019-12-30 11:15 | Outpatient (BNVA) | payer MEDICARE, SELFPAY | PROVIDERS: PCP Internal Medicine; Visit Provider Nurse Practitioner Family | DX: I25.10 Atherosclerotic heart disease of native coronary artery without angina pectoris (principal) | CPT/HCPCS: 80048 ==

== ENCOUNTER 2020-01-13 12:29 | Emergency (ER) | payer MEDICARE, SELFPAY ==
--- NOTE | 2020-01-13 12:47 | XRR_ITS ---
PROCEDURE INFORMATION: Exam: XR Chest, 1 View Exam date and time: 01/13/2020 1:46 PM Age: 59 years old Clinical indication: Dyspnea TECHNIQUE: Imaging protocol: XR of the chest Views: 1 view. COMPARISON: CR XR chest 1V portable [id number] 12/24/2019 4:03 PM FINDINGS: Tubes, catheters and devices: Permanent pacemaker. Lungs: Stable interstitial thickening, no focal consolidation. Pleural space: No pleural effusion. No pneumothorax. Heart/Mediastinum: Stable cardiomegaly. Bones/joints: No acute findings. XR/XR chest 1V portable [id number] IMPRESSION: Chronic lung disease versus minimal congestive heart failure.
--- NOTE | 2020-01-13 12:47 | ECG_ITS ---
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 Measurements Intervals Hunter Rate: 62 P: VT: -1 QRS: 259 QRSD: 218 T: 78 QT: 638 QTc: 652 Interpretive Statements ELECTRONIC VENTRICULAR PACEMAKER PROLONGED QT INTERVAL CRITICAL TEST RESULT Compared to ECG 12/24/2019 18:09:25 No significant changes Electronically Signed On 01-13-2020 17:01:17 CDT by Anais Henderson M.D. [id number]
[2020-01-13 13:01] VITALS: BP 139/65; PULSE 62; RESP 18; TEMP 36.9; O2SAT 96; BMI 37.6
[2020-01-13 13:06] LABS: ABG PCO2 34.4 mmHg (35-45); ABG PH Result 7.51 (7.35-7.45); Arterial Blood Gas Hematocrit 31.3 % (42-52); Base Excess ABG 4.3 mmol/L (-2.0-2.0); Blood Gas Allen Test Pos; Blood Gas Operator Identificat AMH; Blood Gas Sample Site Radial, left; Blood Gas Sample Type Arterial; HCO3 ABG 27.4 mmol/L (22-26); Oxygen Device NC; PO2 ABG 77.1 mmHg (80.0-100.0)
--- NOTE | 2020-01-13 13:10 | ED_ITS ---
HPI - SOB/Dyspnea General: Chief Complaint: Shortness of Breath/Dyspnea Stated Complaint: SOB Time Seen by Provider: 01/13/20 12:47 Source: patient and EMS Mode of arrival: EMS Limitations: no limitations History of Present Illness: HPI Narrative: Leroy is a very nice 59-year-old male who comes in complaining of shortness of breath and wheezing. Patient has a history of COPD states he was outside in the heat without his oxygen when he began to wheeze and cough. He denies any fevers or chest pain. Patient states he just got to overheated and lost his breath. He could not get this to resolve with his regular albuterol. He states he needs oxygen tanks that are portable because he gets this way from time to time. Patient denies any other complaints or concerns such as chest pain. Any type of exertion made it worse and rest helps but did not resolve it enough. In route he was given 125 Solu-Medrol by EMS. Associated symptoms: Deny abdominal pain, chest congestion, chest pain, diaphoresis, dizziness, extremity pain, fever(s), hemoptysis, lightheadedness, nausea, orthopnea, palpitations, syncope or vomiting Review of Systems Const: Denies: fever(s), chills, body aches, fatigue, malaise or diaphoresis Eyes: Denies: change in vision, blurry vision, photophobia, eye discomfort, eye discharge or eye redness ENMT: Denies: throat pain, odynophagia, hoarseness, swelling of lips/tongue, ear or mastoid pain, ear discharge, change in hearing or nasal discharge Card: Denies: chest pain, palpitations, irregular heart rhythm, edema, lightheadedness, syncope, pre-syncope, dyspnea on exertion or orthopnea Resp: Reports: dyspnea and wheezing; Denies: productive cough, non-productive cough, hemoptysis or chest congestion GI: Denies: abdominal pain, nausea, vomiting, hematemesis, coffee ground emesis, heartburn, diarrhea, constipation, GI cramping, hematochezia or melena : Denies: flank pain, dysuria, urinary frequency, urinary urgency or hematuria Musc: Denies: neck pain, back pain, extremity pain, extremity swelling, joint pain, joint swelling, joint redness, joint warmth or joint stiffness Skin/Breast: Denies: rash, pruritus, erythema or skin tenderness Neuro: Denies: headache(s), numbness in extremities, weakness in extremities, sensory changes, lack of coordination, difficulty walking, dizziness, vertigo, confusion, Slurred speech present or seizure-like activity Lauri/Lymph: Denies: easy bruising, easy bleeding, petechiae, purpura or enlarged lymph nodes All/Imm: Denies: urticaria, throat swelling, tongue swelling, facial swelling or acute wheezing PFSH ED PFSH: Medical History Anemia Atrial fibrillation CAD in [place] artery Cardiomyopathy CHF (congestive heart failure) Combined systolic and diastolic. LVEF by LV gram in 2017 was 40%. CVA (cerebral vascular accident) HTN (hypertension) Hyperlipidemia Hypotension Hypothyroid Nicotine dependence, cigarettes, with unspecified nicotine-induced disorders Orthostasis SALONI (obstructive sleep apnea) Pacemaker 2014- dual chamber Panlobular emphysema Paroxysmal A-fib PVD (peripheral vascular disease) Vitamin B12 deficiency Surgical History H/O coronary angioplasty 2013 H/O reduction of closed fracture ankle History of cardiac radiofrequency ablation (RFA) [id number] Hx of appendectomy S/P appendectomy Status cardiac pacemaker Family History Father Myocardial infarct Mother Myocardial infarct Other Family history of premature coronary artery disease Hypertension Social History Smoking and tobacco status: current every day smoker cigarettes Packs smoked per day: 1 Years cigarettes smoked: 40 Quit status (tobacco): has tried quititng Second hand smoke exposure: Yes Smoking risk assessment/counseling performed?: Yes Alcohol intake: former Year of sobriety/quit date alcohol: 1979 Lives independently: Yes Household members: spouse Marital status: Current occupational status: disabled History of recent travel: No Current gender identity: Male Physical Exam Const: COMMON NORMALS: no acute distress, patient oriented x3, no limitations, healthy appearing and well nourished GENERAL APPEARANCE: cooperative, well kempt and well developed HENMT: COMMON NORMALS: normocephalic, atraumatic, external ears normal, EAC's normal and Normal external nose present HEAD & SCALP: normal to inspection, normocephalic and atraumatic FACE & SINUS: normal facial exam and face symmetric NOSE: Normal external nose present and Normal nares present EXTERNAL EAR: Yes external ears normal EXTERNAL AUDITORY CANAL: EAC's normal MOUTH: Normal oral and palatal mucosa present, lip normal and tongue normal Eye: COMMON NORMALS: Equal, round and reactive pupils present and conjunctivae normal GENERAL EYE: appearance normal, both eyes and all related structures ALIGNMENT: Yes alignment normal PERIORBITAL: periorbital findings normal EYELID: eyelids normal CONJUNCTIVA: Yes conjunctivae normal SCLERA: sclerae normal PUPIL: Yes Equal, round and reactive pupils present Neck/C-Spine: COMMON NORMALS: full ROM, no lymphadenopathy, supple, no meningeal signs and no JVD GENERAL: Yes normal visual inspection and Yes trachea midline Chest: COMMONS NORMALS: normal inspection of the chest and normal palpation of entire chest wall Resp: COMMON NORMALS: normal respiratory effort, No retractions, No use of accessory muscles and clear to auscultation bilaterally EFFORT & INSPECTION: Yes able to speak in complete sentences and Yes symmetric chest movement AUSCULTATION: clear to auscultation bilaterally, no crackles, no rales, rhonchi and wheezes Cardio: COMMON NORMALS: no JVD, regular rate, regular rhythm, S1 normal heart sound present and S2 normal heart sound present RATE: regular rate RHYTHM: regular rhythm HEART SOUNDS: S1 normal heart sound present, S2 normal heart sound present, no click, no gallops, no murmurs, no rubs and abnormal split S2 GI: COMMON NORMALS: Soft to palpation and No hepatosplenomegaly present PALPATION: Yes Soft to palpation, No Tenderness to palpation present (GI), No Guarding due to palpation present (GI), No Rigid due to palpation, Yes No hepatosplenomegaly present, No Hernia present, No Palpable mass present and No Pulsatile mass present : COMMON NORMALS: Yes no CVA tenderness BLADDER/KIDNEY EXAM: Yes no CVA tenderness Back/Pelvis: COMMON NORMALS: no CVA tenderness, thoracic and lumbar spine normal to inspection, no thoracic nor lumbar tenderness and thoraco-lumbar ROM normal Extremity: COMMON NORMALS: normal to inspection, full ROM, capillary refill normal, no joint enlargement, no clubbing, cyanosis or edema and no calf tenderness Neuro: COMMON NORMALS: patient oriented x3, CN's II-XII intact bilaterally, moves all extremities, no focal motor deficits and no sensory deficits noted MENINGEAL SIGNS: Yes no meningeal signs SPEECH: speech normal Psych: COMMON NORMALS: mental status grossly normal, Normal thought process present, cooperative, normal affect, speech normal and activity/motor behavior normal APPEARANCE: Yes well kempt SPEECH: Yes normal speech THOUGHT PROCESS: Normal thought process present Skin: COMMON NORMALS: no rashes or lesions noted, turgor normal, no jaundice, no petechiae and no mottling GENERAL SKIN EXAM: no rashes or lesions noted and turgor normal Course Vital Signs: Vital signs: Vital Signs Temperature 98.4 F 01/13/20 13:01 Pulse Rate 62 01/13/20 16:08 Respiratory Rate 20 H 01/13/20 16:08 Blood Pressure 149/56 01/13/20 16:08 Pulse Oximetry 97 01/13/20 16:08 MDM - SOB/Dyspnea MDM Narrative: Medical decision making narrative: Leroy is a very nice 59-year-old male who is well-known to me. Comes in complaining of shortness of breath after he ran out of oxygen and was out in the heat. He has mild wheezing but was given Solu-Medrol by EMS in route. At this time his wheezing is improved if not gone. His chest x-ray looks like mild vascular congestion. He is diuresed mildly with the Lasix I have given him here. He wants to go home and says he has a plan on how to diurese and that Dr. Jasso has given him. He agrees to follow that and does not want to take any extra Lasix that I can prescribe. He agrees to return should his symptoms change or worsen but this time he is feeling better and would like to go home. Patient troponins are elevated but have trended down are in his normal range. This could also be due to his congestive heart failure. Lab Data: Labs: Lab Results 01/13/20 01/13/20 01/13/20 Range/Units 12:56 13:20 13:20 WBC 7.4 (4.0-10.0) 10^3/ uL RBC 4.33 (4.1-5.3) 10^6/u L Hgb 10.4 L (11.7-16.6) g/dL Hct 35.6 L (42.0-52.0) % MCV 82.2 (80-94) fL MCH 24.0 L (28.0-34.0) pg MCHC 29.2 L (30.0-36.0) g/dL RDW 20.6 H (12.1-15.1) % Plt Count 212 (130-400) 10^3/c mm MPV 9.6 (7.4-10.4) fL Neut % (Auto) 50.1 % Lymph % (Auto) 32.3 % [place] % (Auto) 9.9 % Eos % (Auto) 5.8 % Baso % (Auto) 1.6 % Neut # (Auto) 3.73 (1.8-7.7) 10^3/u L Lymph # (Auto) 2.4 (0.8-4.8) 10^3/u L [place] # (Auto) 0.7 (0.2-0.9) 10^3/u L Eos # (Auto) 0.4 (0.0-0.8) 10^3/u L Baso # (Auto) 0.1 (0.0-0.1) 10^3/u L Nucleated RBC % (a uto) 0 % Nucleated RBCs # 0.0 /100WBC PT 21.50 H (12.1-14.9) SECO NDS INR 1.80 H (0.8-1.2) Specimen Type Arterial Sample Site Radial, left ABG pH 7.51 H (7.35-7.45) ABG pCO2 34.4 L (35-45) mmHg ABG pO2 77.1 L (80.0-100.0) mmH g ABG HCO3 27.4 H (22-26) mmol/L ABG Base Excess 4.3 H (-2.0-2.0) mmol/ L Jose Alberto Test Pos Hematocrit 31.3 L (42-52) % O2 Delivery Device Nc O2 Liters/Min 4.0 % FiO2 36.0 % Administrative Tech ID Amh Sodium (136-145) mmol/L Potassium (3.5-5.1) mmol/L Chloride (98-107) mmol/L Carbon Dioxide (22-29) mmol/L Anion Gap (5-19) BUN (8-23) mg/dL Creatinine (0.7-1.2) mg/dL GFR Calculation (90-130) mL/min Glucose (65-115) mg/dL Calculated Osmolal ity (285-295) mOsm/k g Lactic Acid (0.5-2.2) mmol/L Calcium (8.5-10.5) mg/dL Magnesium (1.7-2.3) mg/dL Total Bilirubin (0.15-1.2) mg/dL AST (0-40) U/L ALT (0-41) U/L Alkaline Phosphata se (40-130) IU/L Troponin T Baselin e (0-15) ng/L Troponin T 120 Min [place] (0-15) ng/L Delta Troponin T (0-10) ABS# NT-Pro-B Natriuret Pep (0-125) pg/mL Total Protein (6.6-8.7) g/dL Albumin (3.5-5.2) g/dL Globulin (1.3-4.6) g/dL Lipase (13-60) U/L Urine Color (Yellow) Urine Appearance (CLEAR) Urine pH (5-7) Ur Specific Gravit y (1.005-1.030) Urine Protein (Negative) Urine Glucose (UA) (Normal) Urine Ketones (Negative) Urine Blood (Negative) Urine Nitrate (Negative) Urine Bilirubin (NEGATIVE) Urine Urobilinogen (Negative) mg/dL Ur Leukocyte Shayna ase (Negative) Serum Ketones (Negative) Influenza Type A A g (Negative) Influenza Type B A g (Negative) SARS-CoV-2 Ag (Rap id) (Negative) 01/13/20 01/13/20 01/13/20 Range/Units 13:20 13:20 13:20 WBC (4.0-10.0) 10^3/ uL RBC (4.1-5.3) 10^6/u L Hgb (11.7-16.6) g/dL Hct (42.0-52.0) % MCV (80-94) fL MCH (28.0-34.0) pg MCHC (30.0-36.0) g/dL RDW (12.1-15.1) % Plt Count (130-400) 10^3/c mm MPV (7.4-10.4) fL Neut % (Auto) % Lymph % (Auto) % [place] % (Auto) % Eos % (Auto) % Baso % (Auto) % Neut # (Auto) (1.8-7.7) 10^3/u L Lymph # (Auto) (0.8-4.8) 10^3/u L [place] # (Auto) (0.2-0.9) 10^3/u L Eos # (Auto) (0.0-0.8) 10^3/u L Baso # (Auto) (0.0-0.1) 10^3/u L Nucleated RBC % (a uto) % Nucleated RBCs # /100WBC PT (12.1-14.9) SECO NDS INR (0.8-1.2) Specimen Type Sample Site ABG pH (7.35-7.45) ABG pCO2 (35-45) mmHg ABG pO2 (80.0-100.0) mmH g ABG HCO3 (22-26) mmol/L ABG Base Excess (-2.0-2.0) mmol/ L Jose Alberto Test Hematocrit (42-52) % O2 Delivery Device O2 Liters/Min % FiO2 % Administrative Tech ID Sodium 135 L (136-145) mmol/L Potassium 3.0 L (3.5-5.1) mmol/L Chloride 96 L (98-107) mmol/L Carbon Dioxide 26 (22-29) mmol/L Anion Gap 16.0 (5-19) BUN 13 (8-23) mg/dL Creatinine 1.0 (0.7-1.2) mg/dL GFR Calculation 76.0 L (90-130) mL/min Glucose 97 (65-115) mg/dL Calculated Osmolal ity 276 L (285-295) mOsm/k g Lactic Acid 1.1 (0.5-2.2) mmol/L Calcium 9.1 (8.5-10.5) mg/dL Magnesium 2.0 (1.7-2.3) mg/dL Total Bilirubin 1.7 H (0.15-1.2) mg/dL AST 30 (0-40) U/L ALT 16 (0-41) U/L Alkaline Phosphata se 197 H (40-130) IU/L Troponin T Baselin e 48 H (0-15) ng/L Troponin T 120 Min [place] (0-15) ng/L Delta Troponin T (0-10) ABS# NT-Pro-B Natriuret Pep 1486 H (0-125) pg/mL Total Protein 8.1 (6.6-8.7) g/dL Albumin 3.7 (3.5-5.2) g/dL Globulin 4.4 (1.3-4.6) g/dL Lipase 27 (13-60) U/L Urine Color (Yellow) Urine Appearance (CLEAR) Urine pH (5-7) Ur Specific Gravit y (1.005-1.030) Urine Protein (Negative) Urine Glucose (UA) (Normal) Urine Ketones (Negative) Urine Blood (Negative) Urine Nitrate (Negative) Urine Bilirubin (NEGATIVE) Urine Urobilinogen (Negative) mg/dL Ur Leukocyte Shayna ase (Negative) Serum Ketones Negative (Negative) Influenza Type A A g (Negative) Influenza Type B A g (Negative) SARS-CoV-2 Ag (Rap id) (Negative) 01/13/20 01/13/20 01/13/20 Range/Units 13:29 13:29 14:16 WBC (4.0-10.0) 10^3/ uL RBC (4.1-5.3) 10^6/u L Hgb (11.7-16.6) g/dL Hct (42.0-52.0) % MCV (80-94) fL MCH (28.0-34.0) pg MCHC (30.0-36.0) g/dL RDW (12.1-15.1) % Plt Count (130-400) 10^3/c mm MPV (7.4-10.4) fL Neut % (Auto) % Lymph % (Auto) % [place] % (Auto) % Eos % (Auto) % Baso % (Auto) % Neut # (Auto) (1.8-7.7) 10^3/u L Lymph # (Auto) (0.8-4.8) 10^3/u L [place] # (Auto) (0.2-0.9) 10^3/u L Eos # (Auto) (0.0-0.8) 10^3/u L Baso # (Auto) (0.0-0.1) 10^3/u L Nucleated RBC % (a uto) % Nucleated RBCs # /100WBC PT (12.1-14.9) SECO NDS INR (0.8-1.2) Specimen Type Sample Site ABG pH (7.35-7.45) ABG pCO2 (35-45) mmHg ABG pO2 (80.0-100.0) mmH g ABG HCO3 (22-26) mmol/L ABG Base Excess (-2.0-2.0) mmol/ L Jose Alberto Test Hematocrit (42-52) % O2 Delivery Device O2 Liters/Min % FiO2 % Administrative Tech ID Sodium (136-145) mmol/L Potassium (3.5-5.1) mmol/L Chloride (98-107) mmol/L Carbon Dioxide (22-29) mmol/L Anion Gap (5-19) BUN (8-23) mg/dL Creatinine (0.7-1.2) mg/dL GFR Calculation (90-130) mL/min Glucose (65-115) mg/dL Calculated Osmolal ity (285-295) mOsm/k g Lactic Acid (0.5-2.2) mmol/L Calcium (8.5-10.5) mg/dL Magnesium (1.7-2.3) mg/dL Total Bilirubin (0.15-1.2) mg/dL AST (0-40) U/L ALT (0-41) U/L Alkaline Phosphata se (40-130) IU/L Troponin T Baselin e (0-15) ng/L Troponin T 120 Min [place] (0-15) ng/L Delta Troponin T (0-10) ABS# NT-Pro-B Natriuret Pep (0-125) pg/mL Total Protein (6.6-8.7) g/dL Albumin (3.5-5.2) g/dL Globulin (1.3-4.6) g/dL Lipase (13-60) U/L Urine Color Dark yellow (Yellow) Urine Appearance Clear (CLEAR) Urine pH 7 (5-7) Ur Specific Gravit y 1.010 (1.005-1.030) Urine Protein Neg (Negative) Urine Glucose (UA) Norm (Normal) Urine Ketones Negative (Negative) Urine Blood Neg (Negative) Urine Nitrate Negative (Negative) Urine Bilirubin 1+ H (NEGATIVE) Urine Urobilinogen >=8.0 H (Negative) mg/dL Ur Leukocyte Shayna ase Negative (Negative) Serum Ketones (Negative) Influenza Type A A g Negative (Negative) Influenza Type B A g Negative (Negative) SARS-CoV-2 Ag (Rap id) Negative (Negative) 01/13/20 Range/Units 15:25 WBC (4.0-10.0) 10^3/ uL RBC (4.1-5.3) 10^6/u L Hgb (11.7-16.6) g/dL Hct (42.0-52.0) % MCV (80-94) fL MCH (28.0-34.0) pg MCHC (30.0-36.0) g/dL RDW (12.1-15.1) % Plt Count (130-400) 10^3/c mm MPV (7.4-10.4) fL Neut % (Auto) % Lymph % (Auto) % [place] % (Auto) % Eos % (Auto) % Baso % (Auto) % Neut # (Auto) (1.8-7.7) 10^3/u L Lymph # (Auto) (0.8-4.8) 10^3/u L [place] # (Auto) (0.2-0.9) 10^3/u L Eos # (Auto) (0.0-0.8) 10^3/u L Baso # (Auto) (0.0-0.1) 10^3/u L Nucleated RBC % (a uto) % Nucleated RBCs # /100WBC PT (12.1-14.9) SECO NDS INR (0.8-1.2) Specimen Type Sample Site ABG pH (7.35-7.45) ABG pCO2 (35-45) mmHg ABG pO2 (80.0-100.0) mmH g ABG HCO3 (22-26) mmol/L ABG Base Excess (-2.0-2.0) mmol/ L Jose Alberto Test Hematocrit (42-52) % O2 Delivery Device O2 Liters/Min % FiO2 % Administrative Tech ID Sodium (136-145) mmol/L Potassium (3.5-5.1) mmol/L Chloride (98-107) mmol/L Carbon Dioxide (22-29) mmol/L Anion Gap (5-19) BUN (8-23) mg/dL Creatinine (0.7-1.2) mg/dL GFR Calculation (90-130) mL/min Glucose (65-115) mg/dL Calculated Osmolal ity (285-295) mOsm/k g Lactic Acid (0.5-2.2) mmol/L Calcium (8.5-10.5) mg/dL Magnesium (1.7-2.3) mg/dL Total Bilirubin (0.15-1.2) mg/dL AST (0-40) U/L ALT (0-41) U/L Alkaline Phosphata se (40-130) IU/L Troponin T Baselin e (0-15) ng/L Troponin T 120 Min [place] 40.12 H (0-15) ng/L Delta Troponin T -7.88 L (0-10) ABS# NT-Pro-B Natriuret Pep (0-125) pg/mL Total Protein (6.6-8.7) g/dL Albumin (3.5-5.2) g/dL Globulin (1.3-4.6) g/dL Lipase (13-60) U/L Urine Color (Yellow) Urine Appearance (CLEAR) Urine pH (5-7) Ur Specific Gravit y (1.005-1.030) Urine Protein (Negative) Urine Glucose (UA) (Normal) Urine Ketones (Negative) Urine Blood (Negative) Urine Nitrate (Negative) Urine Bilirubin (NEGATIVE) Urine Urobilinogen (Negative) mg/dL Ur Leukocyte Shayna ase (Negative) Serum Ketones (Negative) Influenza Type A A g (Negative) Influenza Type B A g (Negative) SARS-CoV-2 Ag (Rap id) (Negative) Imaging Data^: CXR: Attestation: I personally reviewed and interpreted this imaging study as follows: My impression: Cardiomegaly with mild pulmonary vascular congestion EKG Data^: EKG 1: Attestation: I personally reviewed and interpreted this EKG as follows: EKG Interpretation Date: 01/13/20 EKG interpretation time: 13:35 Interpretation: Primarily paced rhythm at 62 beats a minute, underlying beats unremarkable. EKG 2: Attestation: I personally reviewed and interpreted this EKG as follows: EKG Interpretation Date: 09/08/20 EKG interpretation time: 15:08 Interpretation: Intermittently paced rhythm with a ventricular rate of 59 beats a minute, nonspecific ST-T wave changes. Unchanged from previous. Discharge Plan Discharge Patient Disposition: Home Clinical Impression: Acute exacerbation of chronic obstructive airways disease Acute exacerbation of congestive heart failure Qualifiers: Heart failure type: unspecified Qualified Code(s): I50.9 - Heart failure, unspecified Condition: Stable Prescriptions: New prednisone 10 mg tablet 20 mg PO TID 5 Days Qty: 30 RF: 0 doxycycline hyclate 100 mg capsule 100 mg PO BID 5 Days Qty: 10 RF: 0 No Action metolazone 2.5 mg tablet 2.5 mg PO PRN PRN (Reason: Edema) RF: 0 nitroglycerin [Nitrostat] 0.4 mg tablet, sublingual 0.4 mg SUBLINGUAL Q5M PRN (Reason: Chest Pain) RF: 0 aspirin [Enteric Coated Aspirin] 81 mg tablet,delayed release (DR/EC) 81 mg PO DAILY RF: 0 albuterol sulfate 2.5 mg /3 mL (0.083 %) solution for nebulization 2.5 mg INHALATION Q4H PRN (Reason: shortness of breath ) RF: 0 torsemide 100 mg tablet 100 mg PO DAILY Qty: 90 RF: 2 atorvastatin 40 mg tablet 40 mg PO BEDTIME 30 Days Qty: 30 RF: 3 potassium chloride 20 mEq tablet extended release 20 meq PO BID PRN (Reason: WITH WATER PILL) Qty: 180 RF: 3 amiodarone 200 mg tablet 200 mg PO DAILY RF: 0 metoprolol succinate 25 mg tablet extended release 24 hr 50 mg PO BEDTIME RF: 0 levothyroxine 50 mcg tablet 25 mcg PO DAILY RF: 0 warfarin 2 mg tablet 2 mg PO TID RF: 0 Discharge Orders: Discharge Order (Routine); Ordered 01/13/20 Ordered By: Ernestina Billings Referrals: Ahmet Jasso MD [Primary Care Provider] - 1-3 days Discharge Diet: Advance as tolerated Discharge Activity: Increase activity as tolerated Patient Instructions: Congestive Heart Failure, Chronic Obstructive Pulmonary Disease (ED) Activity Restrictions/Additional Instructions: Please return to the ER immediately for any of the signs or symptoms listed on your discharge instruction sheets, worsening/changing of your symptoms, you are not getting better as quickly as expected, or for ANY other cause or concerns. Return to the ER if you develop chest pain, worsening shortness of breath, you pass out or nearly pass out, or for any other cause for concern. Take the booster plan that you have with Dr. Jasso for your heart failure when she returned home. 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
[2020-01-13 13:28] LABS: Basophils # 0.1 10^3/uL (0.0-0.1); Basophils % 1.6 %; Eosinophils # 0.4 10^3/uL (0.0-0.8); Eosinophils % 5.8 %; Hematocrit 35.6 % (42.0-52.0); Hemoglobin 10.4 g/dL (11.7-16.6); Lymphocytes # 2.4 10^3/uL (0.8-4.8); Lymphocytes % 32.3 %; Mean Corpuscular HGB Conc 29.2 g/dL (30.0-36.0); Mean Corpuscular Volume 82.2 fL (80-94); Mean Platelet Volume 9.6 fL (7.4-10.4); Monocytes # 0.7 10^3/uL (0.2-0.9); Monocytes % 9.9 %; Neutrophils # 3.73 10^3/uL (1.8-7.7); Neutrophils % 50.1 %; Nucleated Red Blood Cells % 0 %; Platelet Count 212 10^3/cmm (130-400); Red Blood Count 4.33 10^6/uL (4.1-5.3); Red Cell Distribution Width 20.6 % (12.1-15.1); White Blood Count 7.4 10^3/uL (4.0-10.0)
[2020-01-13 13:30] VITALS: BP 121/67; PULSE 61; RESP 20; O2SAT 94
[2020-01-13 13:53] LABS: Lactic Sepsis W/Reflex 1.1 mmol/L (0.5-2.2)
[2020-01-13 13:57] LABS: Ketone (Acetest) Serum Negative (Negative)
[2020-01-13 14:02] LABS: Alanine Aminotransferase 16 U/L (0-41); Albumin Level 3.7 g/dL (3.5-5.2); Alkaline Phosphatase 197 IU/L (40-130); Aspartate Amino Transferase 30 U/L (0-40); Blood Urea Nitrogen 13 mg/dL (8-23); Calcium 9.1 mg/dL (8.5-10.5); Carbon Dioxide 26 mmol/L (22-29); Chloride 96 mmol/L (98-107); Globulin 4.4 g/dL (1.3-4.6); Glucose 97 mg/dL (65-115); Lipase 27 U/L (13-60); NT Pro B Type Natriuretic Pept 1486 pg/mL (0-125); Osmolality Calculated 276 mOsm/kg (285-295); Sodium 135 mmol/L (136-145); Total Bilirubin 1.7 mg/dL (0.15-1.2); Total Protein 8.1 g/dL (6.6-8.7)
[2020-01-13] MEDS: potassium chloride ER 10 mEq Tablet 60 MEQ PO (14:17)
[2020-01-13] MEDS: FUROsemide 10 mg/mL SDV 4mL 40 MG IVP (14:17)
[2020-01-13 14:18] LABS: SARS Covid-2 Antigen Negative (Negative)
[2020-01-13 14:24] LABS: Troponin(5th) Baseline 48 ng/L (0-15)
[2020-01-13 14:32] LABS: Influenza A by IFA Negative (Negative); Influenza B by IFA Negative (Negative)
[2020-01-13 14:35] VITALS: BP 148/59; PULSE 60; RESP 16; O2SAT 99
[2020-01-13 14:37] LABS: Add Urine Microscopic? NO
[2020-01-13 14:43] LABS: Urine Appearance Clear (CLEAR); Urine Color Dark Yellow (Yellow)
[2020-01-13 14:44] LABS: Bilirubin Urine 1+ (NEGATIVE); Blood Urine Neg (Negative); Glucose Urine UA Norm (Normal); Ketones Urine Negative (Negative); Leukocyte Esterase Urine Negative (Negative); Nitrate Urine Negative (Negative); Protein Urine Neg (Negative); Urobilinogen Urine >=8.0 mg/dL (Negative); pH Urine 7 (5-7)
--- NOTE | 2020-01-13 14:47 | ECG_ITS ---
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 Measurements Intervals [place] Rate: 59 P: 211 MS: 221 QRS: -67 QRSD: 114 T: 124 QT: 431 QTc: 430 Interpretive Statements Atrial fibrillation with demand ventricular pacing INFERIOR MYOCARDIAL INFARCTION , PROBABLY OLD [40+ ms Q WAVE AND/OR ST/T ABNORMALITY IN II/aVF] MODERATE T-WAVE ABNORMALITY, CONSIDER LATERAL ISCHEMIA [-0.1+ mV T WAVE IN I/aVL/V5/V6] Compared to ECG 01/13/2020 13:35:02 Myocardial infarct finding now present T-wave abnormality now present Possible ischemia now present Prolonged QT interval no longer present Electronically Signed On 01-13-2020 17:36:05 CDT by Anais Henderson M.D. [id number]
--- NOTE | 2020-01-13 15:29 | DCPLANNER ---
ed case manager was asked to see about getting portable oxygen for patient. ed case manager called [facility] where patient gets his home oxygen. ed case manager sent a order over for patient for portable oxygen, was told that patient would need to follow up with his primary care physician in order to get an ongoing prescription. ed case manager informed patient that he would need to follow up with his primary care physician to get the portable oxygen, patient stated that he understood and would follow up with his primary care physician.
[2020-01-13 16:08] VITALS: BP 149/56; PULSE 62; RESP 20; O2SAT 97
[2020-01-13 16:09] LABS: Troponin 5 2HR 40.12 ng/L (0-15)
[2020-01-13 16:21] LABS: Troponin 5 2HR Delta -7.88 ABS# (0-10)
[2020-01-13] MEDS: predniSONE 20 mg Tablet 60 MG PO (16:38)
[2020-01-13 16:58] VITALS: BP 158/54; PULSE 66; RESP 18; O2SAT 98
== END 2020-01-13 16:56 | disposition home or self-care (01) ==
PROVIDERS: Emergency Provider Emergency Medicine; PCP Internal Medicine
DX: J44.1 Chronic obstructive pulmonary disease with (acute) exacerbation (principal); I11.0 Hypertensive heart disease with heart failure; I50.9 Heart failure, unspecified; Z79.82 Long term (current) use of aspirin; I25.10 Atherosclerotic heart disease of native coronary artery without angina pectoris; Z86.73 Personal history of transient ischemic attack (TIA), and cerebral infarction without residual deficits; E78.5 Hyperlipidemia, unspecified; Z95.0 Presence of cardiac pacemaker; I48.0 Paroxysmal atrial fibrillation; Z98.61 Coronary angioplasty status; F17.210 Nicotine dependence, cigarettes, uncomplicated
CPT/HCPCS: 12345; 36415; 36600; 71045; 80053; 81003; 82009; 82803; 83605; 83690; 83735; 83880; 84484; 85025; 85610; 87040; 87426; 87804; 93005; 96374; 96375; 99284; J1940; J7512

== ENCOUNTER 2020-02-07 05:37 | Emergency (ER) | payer MEDICARE, SELFPAY ==
[2020-02-07 05:39] VITALS: BP 119/72; PULSE 73; RESP 26; TEMP 36.6; O2SAT 97; BMI 38.3
[2020-02-07 05:59] VITALS: BP 119/72; PULSE 60; RESP 21; O2SAT 96
--- NOTE | 2020-02-07 06:10 | XRR_ITS ---
PROCEDURE INFORMATION: Exam: XR Chest, 1 View Exam date and time: 02/07/2020 6:16 AM Age: 59 years old Clinical indication: Cough and dyspnea; Prior surgery; Additional info: Dyspnea/cough TECHNIQUE: Imaging protocol: XR of the chest Views: 1 view. COMPARISON: CR XR chest 1V portable [id number] 01/13/2020 1:24 PM FINDINGS: Lungs: Similar appearance of pulmonary venous congestion and interstitial edema. Pleural space: Unremarkable. No pleural effusion. No pneumothorax. Heart/Mediastinum: Cardiomegaly. Bones/joints: Unremarkable. Soft tissues: Pacemaker overlies the left upper chest with intracardiac leads right atrium and right ventricle. Other findings: No large volume effusion. XR/XR chest 1V portable [id number] IMPRESSION: Similar appearance of congestive heart failure.
[2020-02-07 06:21] LABS: Basophils # 0.1 10^3/uL (0.0-0.1); Eosinophils # 0.4 10^3/uL (0.0-0.8); Eosinophils % 4.5 %; Hematocrit 35.1 % (42.0-52.0); Hemoglobin 10.2 g/dL (11.7-16.6); Lymphocytes # 2.2 10^3/uL (0.8-4.8); Lymphocytes % 26.4 %; Mean Corpuscular HGB Conc 29.1 g/dL (30.0-36.0); Mean Corpuscular Volume 82.6 fL (80-94); Mean Platelet Volume 9.5 fL (7.4-10.4); Monocytes # 0.9 10^3/uL (0.2-0.9); Monocytes % 11.3 %; Neutrophils # 4.71 10^3/uL (1.8-7.7); Neutrophils % 56.6 %; Nucleated Red Blood Cells % 0.2 %; Platelet Count 218 10^3/cmm (130-400); Red Blood Count 4.25 10^6/uL (4.1-5.3); Red Cell Distribution Width 20.4 % (12.1-15.1); White Blood Count 8.3 10^3/uL (4.0-10.0)
--- NOTE | 2020-02-07 06:24 | W.ED.WEAKNES ---
HPI - Weakness General: Chief complaint: Weakness Stated complaint: weakness Time Seen by Provider: 02/07/20 06:07 History of Present Illness: HPI Narrative: 59-year-old male presents emergency room with exacerbation of his COPD. He had increased green sputum productive cough for the last 3 days and increasing shortness of breath he is normally on oxygen daily as well as CPAP. He has not had increase his oxygen needs. He had some nausea no vomiting or diarrhea. He is not on any increased steroids or antibiotics at the moment. He seen his doctor a week ago for routine follow-up and was asymptomatic at that time. MD Complaint: generalized weakness (Cough) Onset (ago): day(s) (2) Duration: constant Relieving factors: rest Exacerbating factors: exertion Associated symptoms: Reports nausea and short of breath; Denies chest pain, chills, confusion, melena, decreased appetite, diaphoresis, dysuria, easy bruising, fever(s), headache(s), myalgias, rash, syncope or vomiting Review of Systems Const: Denies: fever(s), chills or diaphoresis ENMT: Denies: throat pain, ear or mastoid pain, nasal discharge or nasal congestion Card: Denies: chest pain or syncope Resp: Denies: dyspnea, productive cough or non-productive cough GI: Reports: nausea; Denies: vomiting or melena : Denies: dysuria Skin/Breast: Denies: rash or pruritus Neuro: Denies: headache(s) or confusion Lauri/Lymph: Denies: easy bruising PFSH ED PFSH: Medical History Anemia Atrial fibrillation CAD in [place] artery Cardiomyopathy CHF (congestive heart failure) Combined systolic and diastolic. LVEF by LV gram in 2017 was 40%. CVA (cerebral vascular accident) HTN (hypertension) Hyperlipidemia Hypotension Hypothyroid Nicotine dependence, cigarettes, with unspecified nicotine-induced disorders Orthostasis SALONI (obstructive sleep apnea) Pacemaker 2013- dual chamber Panlobular emphysema Paroxysmal A-fib PVD (peripheral vascular disease) Vitamin B12 deficiency Surgical History H/O coronary angioplasty 2013 H/O reduction of closed fracture ankle History of cardiac radiofrequency ablation (RFA) 09723 Hx of appendectomy S/P appendectomy Status cardiac pacemaker Family History Father Myocardial infarct Mother Myocardial infarct Other Family history of premature coronary artery disease Hypertension Social History Smoking and tobacco status: current every day smoker cigarettes Packs smoked per day: 1 Years cigarettes smoked: 40 Quit status (tobacco): has tried quititng Second hand smoke exposure: Yes Smoking risk assessment/counseling performed?: Yes Alcohol intake: former Year of sobriety/quit date alcohol: 1979 Lives independently: Yes Household members: spouse Marital status: Current occupational status: disabled History of recent travel: No Current gender identity: Male Physical Exam Const: COMMON NORMALS: no acute distress GENERAL APPEARANCE: cooperative and comfortable ORIENTATION/CONSCIOUSNESS: Yes awake, Yes oriented to person, Yes oriented to place and Yes oriented to time HENMT: COMMON NORMALS: normocephalic, atraumatic and hearing grossly normal bilaterally HEAD & SCALP: normocephalic and atraumatic Eye: COMMON NORMALS: Equal, round and reactive pupils present, EOMs intact bilaterally, conjunctivae normal and no scleral icterus CONJUNCTIVA: Yes conjunctivae normal PUPIL: Yes Equal, round and reactive pupils present Neck/C-Spine: COMMON NORMALS: full ROM, no lymphadenopathy, supple and no JVD Lymph: LYMPHATIC: no lymphadenopathy noted and no lymphedema noted Resp: AUSCULTATION: rales on the right at the base and 1/[address] up and wheezes expiratory wheezes Cardio: COMMON NORMALS: no JVD, regular rate, regular rhythm and No murmurs present (Cardio) RATE: regular rate RHYTHM: regular rhythm GI: COMMON NORMALS: Soft to palpation and No hepatosplenomegaly present AUSCULTATION: Yes normoactive bowel sounds PALPATION: Yes Soft to palpation, No Tenderness to palpation present (GI), No Guarding due to palpation present (GI) and Yes No hepatosplenomegaly present Extremity: NARRATIVE EXTREMITY EXAM: 2+ edema changes of chronic stasis edema some at dried eschar present but no active draining wounds no evidence of cellulitis not warm to the touch. Neuro: SENSORIUM/ORIENTATION: Yes oriented to person, Yes oriented to place and Yes oriented to time Skin: COMMON NORMALS: no rashes or lesions noted GENERAL SKIN EXAM: no rashes or lesions noted Course Vital Signs: Vital signs: Vital Signs Temperature 98.2 F 02/07/20 11:05 Pulse Rate 63 02/07/20 11:05 Respiratory Rate 18 02/07/20 11:05 Blood Pressure 131/77 02/07/20 11:05 Pulse Oximetry 99 02/07/20 11:05 MDM - Weakness MDM Narrative: Medical decision making narrative: Patient is feeling better. He would like to go home. We did give him a dose of Lasix here continue his current medications asked him to increase his furosemide to 250 mg daily for 3 days. Return to the emergency room if has any worsening problems. Discussed with him that there was a lung nodule noted on his imaging and he should have follow-up with that. He has had productive cough that really has not changed in sputum character or quantity this been going on for several weeks if not months. I did not prescribe any antibiotics at this point he is already had a couple courses of antibiotics without change. Follow-up with his primary care. Lab Data: Labs: Lab Results 02/07/20 02/07/20 02/07/20 Range/Units 06:05 06:05 06:05 WBC 8.3 (4.0-10.0) 10^3/ uL RBC 4.25 (4.1-5.3) 10^6/u L Hgb 10.2 L (11.7-16.6) g/dL Hct 35.1 L (42.0-52.0) % MCV 82.6 (80-94) fL MCH 24.0 L (28.0-34.0) pg MCHC 29.1 L (30.0-36.0) g/dL RDW 20.4 H (12.1-15.1) % Plt Count 218 (130-400) 10^3/c mm MPV 9.5 (7.4-10.4) fL Neut % (Auto) 56.6 % Lymph % (Auto) 26.4 % Kimball % (Auto) 11.3 % Eos % (Auto) 4.5 % Baso % (Auto) 1.0 % Neut # (Auto) 4.71 (1.8-7.7) 10^3/u L Lymph # (Auto) 2.2 (0.8-4.8) 10^3/u L Kimball # (Auto) 0.9 (0.2-0.9) 10^3/u L Eos # (Auto) 0.4 (0.0-0.8) 10^3/u L Baso # (Auto) 0.1 (0.0-0.1) 10^3/u L Nucleated RBC % (a uto) 0.2 % Nucleated RBCs # 0.0 /100WBC PT (12.1-14.9) SECO NDS INR (0.8-1.2) Fibrinogen 216 (174-498) mg/dL D-Dimer 2.99 H (0-0.59) ug/mIFE U Sodium 132 L (136-145) mmol/L Potassium 2.9 L (3.5-5.1) mmol/L Chloride 97 L (98-107) mmol/L Carbon Dioxide 24 (22-29) mmol/L Anion Gap 13.9 (5-19) BUN 14 (8-23) mg/dL Creatinine 0.8 (0.7-1.2) mg/dL GFR Calculation 98.3 (90-130) mL/min Glucose 109 (65-115) mg/dL Calculated Osmolal ity 275 L (285-295) mOsm/k g Lactic Acid (0.5-2.2) mmol/L Calcium 8.9 (8.5-10.5) mg/dL Ferritin 37 (30-400) ng/mL Total Bilirubin 1.5 H (0.15-1.2) mg/dL AST 22 (0-40) U/L ALT 16 (0-41) U/L Alkaline Phosphata se 212 H (40-130) IU/L Lactate Dehydrogen ase 301 H (135-225) U/L C-Reactive Protein 18.3 H (0.0-4.9) mg/L Total Protein 7.5 (6.6-8.7) g/dL Albumin 3.4 L (3.5-5.2) g/dL Globulin 4.1 (1.3-4.6) g/dL Procalcitonin 0.09 (0-0.5) ng/mL Influenza Type A A g (Negative) Influenza Type B A g (Negative) SARS-CoV-2 RNA (RT -PCR) (NOT DETECTED) 02/07/20 02/07/2002/06/20 Range/Units 06:05 06:05 06:20 WBC (4.0-10.0) 10^3/ uL RBC (4.1-5.3) 10^6/u L Hgb (11.7-16.6) g/dL Hct (42.0-52.0) % MCV (80-94) fL MCH (28.0-34.0) pg MCHC (30.0-36.0) g/dL RDW (12.1-15.1) % Plt Count (130-400) 10^3/c mm MPV (7.4-10.4) fL Neut % (Auto) % Lymph % (Auto) % Kimball % (Auto) % Eos % (Auto) % Baso % (Auto) % Neut # (Auto) (1.8-7.7) 10^3/u L Lymph # (Auto) (0.8-4.8) 10^3/u L Kimball # (Auto) (0.2-0.9) 10^3/u L Eos # (Auto) (0.0-0.8) 10^3/u L Baso # (Auto) (0.0-0.1) 10^3/u L Nucleated RBC % (a uto) % Nucleated RBCs # /100WBC PT 17.80 H (12.1-14.9) SECO NDS INR 1.42 H (0.8-1.2) Fibrinogen (174-498) mg/dL D-Dimer (0-0.59) ug/mIFE U Sodium (136-145) mmol/L Potassium (3.5-5.1) mmol/L Chloride (98-107) mmol/L Carbon Dioxide (22-29) mmol/L Anion Gap (5-19) BUN (8-23) mg/dL Creatinine (0.7-1.2) mg/dL GFR Calculation (90-130) mL/min Glucose (65-115) mg/dL Calculated Osmolal ity (285-295) mOsm/k g Lactic Acid 1.3 (0.5-2.2) mmol/L Calcium (8.5-10.5) mg/dL Ferritin (30-400) ng/mL Total Bilirubin (0.15-1.2) mg/dL AST (0-40) U/L ALT (0-41) U/L Alkaline Phosphata se (40-130) IU/L Lactate Dehydrogen ase (135-225) U/L C-Reactive Protein (0.0-4.9) mg/L Total Protein (6.6-8.7) g/dL Albumin (3.5-5.2) g/dL Globulin (1.3-4.6) g/dL Procalcitonin (0-0.5) ng/mL Influenza Type A A g Negative (Negative) Influenza Type B A g Negative (Negative) SARS-CoV-2 RNA (RT -PCR) (NOT DETECTED) 02/07/20 Range/Units 06:45 WBC (4.0-10.0) 10^3/ uL RBC (4.1-5.3) 10^6/u L Hgb (11.7-16.6) g/dL Hct (42.0-52.0) % MCV (80-94) fL MCH (28.0-34.0) pg MCHC (30.0-36.0) g/dL RDW (12.1-15.1) % Plt Count (130-400) 10^3/c mm MPV (7.4-10.4) fL Neut % (Auto) % Lymph % (Auto) % [place] % (Auto) % Eos % (Auto) % Baso % (Auto) % Neut # (Auto) (1.8-7.7) 10^3/u L Lymph # (Auto) (0.8-4.8) 10^3/u L [place] # (Auto) (0.2-0.9) 10^3/u L Eos # (Auto) (0.0-0.8) 10^3/u L Baso # (Auto) (0.0-0.1) 10^3/u L Nucleated RBC % (a uto) % Nucleated RBCs # /100WBC PT (12.1-14.9) SECO NDS INR (0.8-1.2) Fibrinogen (174-498) mg/dL D-Dimer (0-0.59) ug/mIFE U Sodium (136-145) mmol/L Potassium (3.5-5.1) mmol/L Chloride (98-107) mmol/L Carbon Dioxide (22-29) mmol/L Anion Gap (5-19) BUN (8-23) mg/dL Creatinine (0.7-1.2) mg/dL GFR Calculation (90-130) mL/min Glucose (65-115) mg/dL Calculated Osmolal ity (285-295) mOsm/k g Lactic Acid (0.5-2.2) mmol/L Calcium (8.5-10.5) mg/dL Ferritin (30-400) ng/mL Total Bilirubin (0.15-1.2) mg/dL AST (0-40) U/L ALT (0-41) U/L Alkaline Phosphata se (40-130) IU/L Lactate Dehydrogen ase (135-225) U/L C-Reactive Protein (0.0-4.9) mg/L Total Protein (6.6-8.7) g/dL Albumin (3.5-5.2) g/dL Globulin (1.3-4.6) g/dL Procalcitonin (0-0.5) ng/mL Influenza Type A A g (Negative) Influenza Type B A g (Negative) SARS-CoV-2 RNA (RT -PCR) Not detected (NOT DETECTED) Discharge Plan Discharge Patient Disposition: Home Clinical Impression: COPD (chronic obstructive pulmonary disease), CHF (congestive heart failure), Lung nodule Condition: Stable Prescriptions: No Action metolazone 2.5 mg tablet 2.5 mg PO PRN PRN (Reason: Edema) RF: 0 nitroglycerin [Nitrostat] 0.4 mg tablet, sublingual 0.4 mg SUBLINGUAL Q5M PRN (Reason: Chest Pain) RF: 0 aspirin [Enteric Coated Aspirin] 81 mg tablet,delayed release (DR/EC) 81 mg PO DAILY RF: 0 albuterol sulfate 2.5 mg /3 mL (0.083 %) solution for nebulization 2.5 mg INHALATION Q4H PRN (Reason: shortness of breath ) RF: 0 torsemide 100 mg tablet 100 mg PO DAILY Qty: 90 RF: 2 atorvastatin 40 mg tablet 40 mg PO BEDTIME 30 Days Qty: 30 RF: 3 potassium chloride 20 mEq tablet extended release 20 meq PO BID PRN (Reason: WITH WATER PILL) Qty: 180 RF: 3 (DME) Portable oxygen with concentrator See Rx Instructions .Route .MEDSUPPLY Qty: 1 RF: 0 warfarin 2 mg tablet 2 mg PO TID Qty: 90 RF: 2 amiodarone 200 mg tablet 200 mg PO DAILY RF: 0 metoprolol succinate 25 mg tablet extended release 24 hr 50 mg PO BEDTIME RF: 0 levothyroxine 50 mcg tablet 25 mcg PO DAILY RF: 0 Discharge Orders: Discharge Order (Routine); Ordered 02/07/20 Ordered By: Conrad Holland Referrals: Ahmet Jasso MD [Primary Care Provider] - Activity Restrictions/Additional Instructions: REturm to the ER if you have increased difficulty breathing. Discharge Date/Time: 02/07/20 11:08 Coding Level of Care Code ED Diesel Engine Inspector for Kapilg Fwd Exam Comprehensive
[2020-02-07 06:28] LABS: D Dimer 2.99 ug/mIFEU (0-0.59)
[2020-02-07 06:30] VITALS: BP 118/80; PULSE 63; RESP 18; O2SAT 97
[2020-02-07 06:30] LABS: Lactic Sepsis W/Reflex 1.3 mmol/L (0.5-2.2)
[2020-02-07 06:36] LABS: Fibrinogen 216 mg/dL (174-498)
[2020-02-07 06:39] LABS: Procalcitonin 0.09 ng/mL (0-0.5)
[2020-02-07 06:48] LABS: INR 1.42 (0.8-1.2)
[2020-02-07 06:51] LABS: Alanine Aminotransferase 16 U/L (0-41); Albumin Level 3.4 g/dL (3.5-5.2); Alkaline Phosphatase 212 IU/L (40-130); Anion Gap 13.9 (5-19); Aspartate Amino Transferase 22 U/L (0-40); Blood Urea Nitrogen 14 mg/dL (8-23); C Reactive Protein 18.3 mg/L (0.0-4.9); Calcium 8.9 mg/dL (8.5-10.5); Carbon Dioxide 24 mmol/L (22-29); Chloride 97 mmol/L (98-107); Ferritin 37 ng/mL (30-400); Globulin 4.1 g/dL (1.3-4.6); Glomerular Filtration Rate 98.3 mL/min (90-130); Glucose 109 mg/dL (65-115); Lactate Dehydrogenase 301 U/L (135-225); Osmolality Calculated 275 mOsm/kg (285-295); Sodium 132 mmol/L (136-145); Total Bilirubin 1.5 mg/dL (0.15-1.2); Total Protein 7.5 g/dL (6.6-8.7)
[2020-02-07 06:57] LABS: Potassium 2.9 mmol/L (3.5-5.1)
[2020-02-07 07:11] LABS: Influenza A by IFA Negative (Negative); Influenza B by IFA Negative (Negative)
--- NOTE | 2020-02-07 07:24 | PC.NURSE ---
patients PTC taken to lab
[2020-02-07] MEDS: FUROsemide 10 mg/mL SDV 4mL 40 MG IVP (07:56)
[2020-02-07] MEDS: potassium chloride oral liq 20 mEq/15 mL UDC 40 MEQ PO (07:57)
--- NOTE | 2020-02-07 08:20 | CTR_ITS ---
PROCEDURE INFORMATION: Exam: CT Angiography Chest With Contrast Exam date and time: 02/07/2020 8:41 AM Age: 59 years old Clinical indication: Dyspnea; Prior surgery; Surgery date: 6+ months; Surgery type: Pacemaker TECHNIQUE: Imaging protocol: Computed tomographic angiography of the chest with intravenous contrast. 3D rendering (Not supervised by radiologist): MIP and/or 3D reconstructed images were created by the technologist. Radiation optimization: All CT scans at this facility use at least one of these dose optimization techniques: automated exposure control; mA and/or kV adjustment per patient size (includes targeted exams where dose is matched to clinical indication); or iterative reconstruction. Contrast material: OMNIPAQUE 350; Contrast volume: 95 ml; Contrast route: INTRAVENOUS (IV); COMPARISON: Most recent chest x-ray today. CT chest without contrast July 08, 2019. CT[place] Chest-[place]ulmonary [place] [id number] 09/14/2017 6:08 AM RADIATION DOSE METRICS: Total DLP (mGy-cm): 978.59 FINDINGS: Pulmonary arteries: The pulmonary arteries are well opacified to the subsegmental level. No evidence of pulmonary embolism. Main pulmonary artery 3.2 cm in caliber. Aorta: Normal caliber thoracic aorta. Lungs: Centrilobular emphysema. There is again diffuse interstitial thickening with mosaic attenuation of the lungs which may be influenced by air trapping, similar to. Suspected subpleural fibrosis at the bases. No lobar consolidation. Diffuse bronchial wall thickening. Central airways normal caliber and patent. Pleural space: Trace layering right pleural effusion. No left effusion. Heart: Moderate cardiomegaly. No pericardial effusion. Lymph nodes: Bilateral mediastinal and hilar adenopathy without significant change since September 14, 2017. Largest nodes include subcarinal measuring 2.4 cm in short axis on image 239 series 2, right lower paratracheal conglomerate measuring up to 2.6 cm in short axis on image 153 series 2, and bilateral hilar nodes measuring up to 1.4 cm in short axis. Intraperitoneal space: Limited imaging of the upper abdomen reveals nodular liver contours and small ascites. Bones/joints: Unremarkable. No acute fracture. Soft tissues: Mild anasarca. CT/CT angio chest PE protcl [id number] IMPRESSION: 1. No evidence of pulmonary embolism. 2. Extensive bilateral hilar and mediastinal adenopathy without significant change since September 14, 2017. Correlate with history. 3. Emphysema with diffuse interstitial thickening and suspected subpleural fibrosis. Findings are consistent with chronic interstitial lung disease, although there may be superimposed CHF/edema in the setting of cardiomegaly and trace right pleural effusion. No lobar consolidation. 4. Nodular liver and small ascites similar to 2018, correlate for cirrhosis. Radiation Dose CTDIVOL = (mGy): DLP = 978.59 (mGy-cm)
[2020-02-07] MEDS: iohexol 350 mg/mL 100 mL Btl IV (09:09)
[2020-02-07 10:18] VITALS: BP 143/76; PULSE 84; RESP 20; O2SAT 93
[2020-02-07 11:04] VITALS: BP 131/77; PULSE 63; RESP 18
[2020-02-07 11:05] VITALS: BP 131/77; PULSE 63; RESP 18; TEMP 36.8; O2SAT 99
--- NOTE | 2020-02-07 11:43 | PC.NURSE ---
patient was sent home with a portable pulse oximeter per dr cee
--- NOTE | 2020-02-08 13:50 | PC.SOCIAL ---
Follow Up call Pt was in ER yesterday, & Dr wanted a nurse or a doctor to call pt today for a follow up call to check on pt. Vocational Services Specialist tried calling both number provided, there was no answer & the name on the voicemail was not pt's. Vocational Services Specialist did not leave a message, d/t unsure if the numbers were for sure pt's or family's. Vocational Services Specialist called Kimberly in the ER & notified her that SS was not able to follow up with pt. She said she will let someone know so they can try again tomorrow.
[2020-02-08 18:47] LABS: Quest SARS-CoV-2 RNA NOT DETECTED (NOT DETECTED)
--- NOTE | 2020-02-09 15:40 | DCPLANNER ---
work manager had message to schedule a follow up appointment for patient with [facility] and primary care physician. work manager called the office of Dr. Jasso, patients primary care physician, spoke with Alyson. A follow up appointment was scheduled for February at 3:[address] Jasso. Clinic will call patient with appointment information. work manager also called [facility] to schedule a follow up appointment for patient with Dr. Ragsdale. work manager spoke with Cookie, a follow up appointment was scheduled for Monday, February 17, 2020 at 11:[address] Ragsdale. work manager called patient to give patient the appointment information, unable to speak with patient at this time, a voicemail was left for patient to return lead case manager phone call.
--- NOTE | 2020-02-11 12:34 | DCPLANNER ---
clinical support manager spoke with patient and gave patient appointment information with Dr. Ragsdale at [facility]. Patient stated that he would attend appointment.
--- NOTE | 2020-02-27 16:11 | DCPLANNER ---
Patient had follow up appointment scheduled for 02.12.[address] Jasso - patient did attend appointment Patient had follow up appointment scheduled for 02.17.20 with [facility] - patient did attend appointment.
== END 2020-02-07 11:08 | disposition home or self-care (01) ==
PROVIDERS: Emergency Provider Family Medicine; PCP Internal Medicine
DX: J44.9 Chronic obstructive pulmonary disease, unspecified (principal); I11.0 Hypertensive heart disease with heart failure; I50.9 Heart failure, unspecified; R91.1 Solitary pulmonary nodule; Z79.01 Long term (current) use of anticoagulants; Z79.82 Long term (current) use of aspirin; I25.10 Atherosclerotic heart disease of native coronary artery without angina pectoris; Z86.73 Personal history of transient ischemic attack (TIA), and cerebral infarction without residual deficits; E78.5 Hyperlipidemia, unspecified; Z95.0 Presence of cardiac pacemaker; I48.0 Paroxysmal atrial fibrillation; Z98.61 Coronary angioplasty status; F17.210 Nicotine dependence, cigarettes, uncomplicated
CPT/HCPCS: 12345; 71045; 71275; 80053; 82728; 83605; 83615; 84145; 85025; 85378; 85384; 85610; 86140; 87635; 87804; 96374; 96375; 99283; 99284; J1940; Q9967

== ENCOUNTER 2020-04-10 15:25 | Inpatient (IN) | payer MEDICARE, SELFPAY ==
[2020-04-10] VITALS (10 sets, daily range): BP systolic 112–156; BP diastolic 68–84; PULSE 61–87; RESP 18–24; TEMP 36.4–36.5; O2SAT 92–98; BMI 41.8
--- NOTE | 2020-04-10 15:54 | ECG_ITS ---
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: : 1960 Requested By: Isabel Bishop Order Number: [id number] Reading MD: BLADIMIR NAVARRO Measurements Intervals [place] Rate: 70 P: [place]: QRS: -63 QRSD: 113 T: 135 QT: 412 QTc: 446 Interpretive Statements Atrial fibrillation is the underlying rhythm ELECTRONIC VENTRICULAR PACEMAKER -- CONTOUR ANALYSIS BASED ON INTRINSIC RHYTHM LOW QRS VOLTAGE IN PRECORDIAL LEADS [QRS DEFLECTION < 1.0 mV IN CHEST LEADS] POSSIBLE ANTERIOR MYOCARDIAL INFARCTION , PROBABLY OLD [30 ms Q WAVE IN V3/V4, OR R < 0.2 mV IN V4] INFERIOR MYOCARDIAL INFARCTION , PROBABLY OLD [40+ ms Q WAVE AND/OR ST/T ABNORMALITY IN II/aVF] Compared to ECG 01/13/2020 15:08:28 No significant change Electronically Signed On 04-10-2020 17:26:44 CRATE MAKER by BLADIMIR NAVARRO [email or web address]
--- NOTE | 2020-04-10 15:55 | ED_ITS ---
Documented by User: ARUNA Bardales 04/11/20 07:28 HPI - Extremity Problem General: Chief complaint: Extremity Injury, Lower Stated complaint: BILAT LOWER EXT SWELLING Time Seen by Provider: 04/10/20 15:53 History of Present Illness: HPI Narrative: 59-year-old male patient presents to the emergency department via EMS with swelling all over. He reports was advised to come to the emergency department by his database management specialist, Dr. Amor. He reports swelling in the bilateral lower extremities, started 7 days ago. Medication changes 7 days ago, initiation of furosemide 40 mg daily, spironolactone 25 mg daily, with discontinuation of toresmide. States medication changes has not helped. He reports shortness of breath, difficulty breathing, history of congestive heart failure. He continues to smoke, denies changes of sputum or cough. He is oxygen dependent, 2 L nasal cannula. States not able to do anything at home due to continued swelling of the extremities, states swelling is now all over. Reports edema improves if legs are elevated. Reports seeping from the legs past couple of days. History of atrial fibrillation, recent nuclear medicine scan with decreased EF of 30%; mild ischemia with large inferior wall infarction. He reports intermittent chest pain with shortness of breath. He states pain is located in front chest, does not radiate. Location: lower extremity Exacerbating factors: weight bearing and walking Associated symptoms: Reports chest pain and short of breath; Deny fever(s) or rash Review of Systems General: Reports: 10 or more systems reviewed and unremarkable except in HPI and below Const: Reports: fatigue; Denies: fever(s), chills or diaphoresis Eyes: Denies: blurry vision or eye redness ENMT: Denies: throat pain, hoarseness, dental pain, disequilibrium, nasal discharge or nasal congestion Card: Reports: chest pain, edema, swelling of feet/ankles, dyspnea on exertion and leg pain with exertion; Denies: palpitations, irregular heart rhythm, syncope or pre-syncope Resp: Reports: dyspnea and non-productive cough; Denies: productive cough or wheezing GI: Reports: bloating; Denies: abdominal pain, nausea, vomiting, dysphagia, heartburn or constipation : Denies: dysuria, urinary urgency, difficulty starting urination or urinary incontinence Musc: Denies: neck pain, back pain or muscle weakness Skin/Breast: Reports: erythema (RLE) and changes in skin color (BLE); Denies: rash or pruritus Neuro: Reports: difficulty walking; Denies: headache(s), weakness in extremities, dizziness, confusion or behavioral changes Psych: Denies: anxiety or depression Lauri/Lymph: Denies: easy bruising PFS ED PFSH: Medical History (Updated 04/10/20 @ 23:37 by Dylan Persaud MD, [facility]) Anemia Atrial fibrillation 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 LVEF by LV gram in 2017 was 40%. CVA (cerebral vascular accident) HTN (hypertension) Hyperlipidemia Hypotension Hypothyroid Nicotine dependence, cigarettes, with unspecified nicotine-induced disorders Orthostasis SALONI (obstructive sleep apnea) Pacemaker 2013- dual chamber Panlobular emphysema Paroxysmal A-fib PVD (peripheral vascular disease) Vitamin B12 deficiency Surgical History H/O coronary angioplasty 2013 H/O reduction of closed fracture ankle History of cardiac radiofrequency ablation (RFA) 34619 Hx of appendectomy S/P appendectomy Status cardiac pacemaker Family History Father Myocardial infarct Mother Myocardial infarct Other Family history of premature coronary artery disease Hypertension Social History Smoking and tobacco status: current every day smoker cigarettes Packs smoked per day: 0.5 Years cigarettes smoked: 40 [ Other cigarette details: Hx of 1PPD x 40 Years ] Quit status (tobacco): has tried quititng Second hand smoke exposure: Yes Smoking risk assessment/counseling performed?: Yes Alcohol intake: former Year of sobriety/quit date alcohol: 1979 Lives independently: Yes Household members: spouse Marital status: Current occupational status: disabled History of recent travel: No Current gender identity: Male Physical Exam Const: COMMON NORMALS: no acute distress, patient oriented x3, healthy appearing, alert and well nourished EXAM LIMITATIONS: no altered mental status GENERAL APPEARANCE: cooperative, comfortable, well kempt, appears older than stated age and well hydrated NUTRITIONAL APPEARANCE: obese ORIENTATION/CONSCIOUSNESS: Yes awake, Yes oriented to person, Yes oriented to place and Yes oriented to time HENMT: COMMON NORMALS: normocephalic, atraumatic, Normal external nose present, Normal nasal mucous membranes and turbinates present and moist oral mucous membranes HEAD & SCALP: normal to inspection, normocephalic and atraumatic FACE & SINUS: sinuses nontender and edema bilaterally NOSE: Normal external nose present and Normal nasal mucous membranes and turbinates present MOUTH: Normal oral and palatal mucosa present Eye: COMMON NORMALS: Equal, round and reactive pupils present and EOMs intact bilaterally GENERAL EYE: appearance normal, both eyes and all related structures PUPIL: Yes Equal, round and reactive pupils present Neck/C-Spine: COMMON NORMALS: full ROM and no lymphadenopathy GENERAL: Yes normal visual inspection and Yes trachea midline CERVICAL SPINE: Yes cervical ROM normal Lymph: LYMPHATIC: no lymphadenopathy noted Chest: COMMONS NORMALS: normal inspection of the chest and normal palpation of entire chest wall Resp: COMMON NORMALS: normal respiratory effort EFFORT & INSPECTION: Yes able to speak in complete sentences, Yes symmetric chest movement, No tachypneic, No respiratory distress and No pursed lip breathing AUSCULTATION: rhonchi and diminished lung sounds bilateral Cardio: COMMON NORMALS: regular rhythm, S1 normal heart sound present, S2 normal heart sound present and Peripheral pulses 2+ throughout RHYTHM: regular rhythm HEART SOUNDS: S1 normal heart sound present and S2 normal heart sound present PERIPHERAL PULSES: Peripheral pulses 2+ throughout GI: COMMON NORMALS: Normal to inspection, nondistended, normoactive bowel sounds present, Soft to palpation and non-tender INSPECTION: Yes Abdominal wall edema, Yes abdominal distension and Yes central obesity AUSCULTATION: Yes normoactive bowel sounds PALPATION: Yes Soft to palpation : COMMON NORMALS: Yes no CVA tenderness BLADDER/KIDNEY EXAM: Yes no CVA tenderness Back/Pelvis: COMMON NORMALS: no CVA tenderness and thoracic and lumbar spine normal to inspection Extremity: COMMON NORMALS: normal to inspection, full ROM and capillary refill normal NARRATIVE EXTREMITY EXAM: Sacral edema present GENERAL: Yes edema (Anasarca, 3+ edema right lower extremity, 2+ edema left lower extremity) Neuro: HUMBERTO COMA SCALE: document GCS findings [place] coma scale eye opening: Spontaneous [place] coma scale verbal response: Orientated Humberto coma scale motor response: Obey commands Humberto coma scale total score: 15 COMMON NORMALS: patient oriented x3 and no focal motor deficits SENSORIUM/ORIENTATION: Yes alert, Yes oriented to person, Yes oriented to place and Yes oriented to time SPEECH: speech normal MOTOR EXAM: 5/5 motor stre ngth present throughout Psych: COMMON NORMALS: mental status grossly normal, Normal thought process present and cooperative APPEARANCE: Yes well kempt ACTIVITY/MOTOR BEHAVIOR: Yes appropriate eye contact THOUGHT PROCESS: Normal thought process present Skin: COMMON NORMALS: no rashes or lesions noted and turgor normal GENERAL SKIN EXAM: no rashes or lesions noted, turgor normal and erythema (Right anterior way) Course Vital Signs: Vital signs: Vital Signs Temperature 98.2 F 04/11/20 04:00 Pulse Rate 93 04/11/20 06:00 Respiratory Rate 20 H 04/11/20 05:00 Blood Pressure 114/66 04/11/20 05:00 Pulse Oximetry 93 04/11/20 00:04 MDM - Extremity (Nontraumatic) Lab Data: Labs: Lab Results 04/10/20 04/10/20 04/10/20 Range/Units 16:15 16:15 16:15 WBC 7.7 (4.0-10.0) 10^3/ uL RBC 3.95 L (4.1-5.3) 10^6/u L Hgb 9.6 L (11.7-16.6) g/dL Hct 32.4 L (42.0-52.0) % MCV 82.0 (80-94) fL MCH 24.3 L (28.0-34.0) pg MCHC 29.6 L (30.0-36.0) g/dL RDW 21.0 H (12.1-15.1) % Plt Count 212 (130-400) 10^3/c mm MPV 9.7 (7.4-10.4) fL Neut % (Auto) 60.2 % Lymph % (Auto) 24.7 % Harper % (Auto) 10.3 % Eos % (Auto) 3.1 % Baso % (Auto) 1.3 % Neut # (Auto) 4.62 (1.8-7.7) 10^3/u L Lymph # (Auto) 1.9 (0.8-4.8) 10^3/u L Harper # (Auto) 0.8 (0.2-0.9) 10^3/u L Eos # (Auto) 0.2 (0.0-0.8) 10^3/u L Baso # (Auto) 0.1 (0.0-0.1) 10^3/u L Nucleated RBC % (a uto) 0 % Nucleated RBCs # 0.0 /100WBC PT 32.10 H (12.1-14.9) SECO NDS INR 2.98 H (0.8-1.2) APTT 48.2 H (23.9-36.7) SECO NDS Sodium 133 L (136-145) mmol/L Potassium 2.4 L* (3.5-5.1) mmol/L Chloride 92 L (98-107) mmol/L Carbon Dioxide 29 (22-29) mmol/L Anion Gap 14.4 (5-19) BUN 11 (8-23) mg/dL Creatinine 1.0 (0.7-1.2) mg/dL GFR Calculation 76.0 L (90-130) mL/min Glucose 110 (65-115) mg/dL Calculated Osmolal ity 276 L (285-295) mOsm/k g Calcium 8.1 L (8.5-10.5) mg/dL Magnesium (1.7-2.3) mg/dL Total Bilirubin 2.4 H (0.15-1.2) mg/dL AST 24 (0-40) U/L ALT 11 (0-41) U/L Alkaline Phosphata se 197 H (40-130) IU/L Troponin T Baselin e (0-15) ng/L NT-Pro-B Natriuret Pep 1341 H (0-125) pg/mL Total Protein 7.7 (6.6-8.7) g/dL Albumin 3.4 L (3.5-5.2) g/dL Globulin 4.3 (1.3-4.6) g/dL 04/10/20 04/10/20 Range/Units 16:15 16:15 WBC (4.0-10.0) 10^3/ uL RBC (4.1-5.3) 10^6/u L Hgb (11.7-16.6) g/dL Hct (42.0-52.0) % MCV (80-94) fL MCH (28.0-34.0) pg MCHC (30.0-36.0) g/dL RDW (12.1-15.1) % Plt Count (130-400) 10^3/c mm MPV (7.4-10.4) fL Neut % (Auto) % Lymph % (Auto) % Harper % (Auto) % Eos % (Auto) % Baso % (Auto) % Neut # (Auto) (1.8-7.7) 10^3/u L Lymph # (Auto) (0.8-4.8) 10^3/u L Harper # (Auto) (0.2-0.9) 10^3/u L Eos # (Auto) (0.0-0.8) 10^3/u L Baso # (Auto) (0.0-0.1) 10^3/u L Nucleated RBC % (a uto) % Nucleated RBCs # /100WBC PT (12.1-14.9) SECO NDS INR (0.8-1.2) APTT (23.9-36.7) SECO NDS Sodium (136-145) mmol/L Potassium (3.5-5.1) mmol/L Chloride (98-107) mmol/L Carbon Dioxide (22-29) mmol/L Anion Gap (5-19) BUN (8-23) mg/dL Creatinine (0.7-1.2) mg/dL GFR Calculation (90-130) mL/min Glucose (65-115) mg/dL Calculated Osmolal ity (285-295) mOsm/k g Calcium (8.5-10.5) mg/dL Magnesium 1.7 (1.7-2.3) mg/dL Total Bilirubin (0.15-1.2) mg/dL AST (0-40) U/L ALT (0-41) U/L Alkaline Phosphata se (40-130) IU/L Troponin T Baselin e 46 H (0-15) ng/L NT-Pro-B Natriuret Pep (0-125) pg/mL Total Protein (6.6-8.7) g/dL Albumin (3.5-5.2) g/dL Globulin (1.3-4.6) g/dL EKG Data^: EKG 1: EKG interpretation date: 04/10/20 EKG interpretation time: 16:10 Other EKG comments: atrial fib, paced ventricular beats, ventricular rate 70 Discharge Plan Discharge Patient Disposition: Admitted As Inpatient Admit Provider: Charles Delgado Clinical Impression: Hypokalemia CHF (congestive heart failure) Qualifiers: Heart failure type: diastolic Heart failure chronicity: acute on chronic Qualified Code(s): I50.33 - Acute on chronic diastolic (congestive) heart failure Condition: Stable Sign Out Sign Out Data: Patient Sign Out occurred on 04/10/20 at 18:38. Patient's care was discussed, and care was transferred from ARUNA Bardales to Dylan Persaud MD, [facility]. Sign Out Comment: End of shift - transfer to Dr Persaud, more than likely will need hospitalization due to failure of oral diuresis. Last updated by Isabel Portillo ARNP at 04/10/20 17:12 Coding Level of Care Code ED Secondary Special Education Teacher for Chg Fwd Exam Comprehensive Documented by User: Dylan Persaud MD, [facility] 04/10/20 23:38 HPI - Extremity Problem General: Chief complaint: Extremity Injury, Lower Stated complaint: BILAT LOWER EXT SWELLING Time Seen by Provider: 04/10/20 15:53 PFSH ED PFSH: Medical History (Updated 04/10/20 @ 23:37 by Dylan Persaud MD, [facility]) Anemia Atrial fibrillation 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 LVEF by LV gram in 2017 was 40%. CVA (cerebral vascular accident) HTN (hypertension) Hyperlipidemia Hypotension Hypothyroid Nicotine dependence, cigarettes, with unspecified nicotine-induced disorders Orthostasis SALONI (obstructive sleep apnea) Pacemaker 2014- dual chamber Panlobular emphysema Paroxysmal A-fib PVD (peripheral vascular disease) Vitamin B12 deficiency Surgical History H/O coronary angioplasty 2013 H/O reduction of closed fracture ankle History of cardiac radiofrequency ablation (RFA) 07217 Hx of appendectomy S/P appendectomy Status cardiac pacemaker Family History Father Myocardial infarct Mother Myocardial infarct Other Family history of premature coronary artery disease Hypertension Social History Smoking and tobacco status: current every day smoker cigarettes Packs smoked per day: 0.5 Years cigarettes smoked: 40 [ Other cigarette details: Hx of 1PPD x 40 Years ] Quit status (tobacco): has tried quititng Second hand smoke exposure: Yes Smoking risk assessment/counseling performed?: Yes Alcohol intake: former Year of sobriety/quit date alcohol: 1980 Lives independently: Yes Household members: spouse Marital status: Current occupational status: disabled History of recent travel: No Current gender identity: Male Course Consultations: Consultation #1: Discussed the patient with Dr. Amor. Patient will benefit from inpatient stay, give Lasix 60 mg IV twice daily. Replace potassium also. Admit to the hospitalist. Time: 20:10 Consultation #2: Discussed the patient with Dr. Delgado, hospitalist. He kindly accepted patient to his service. Time: 20:24 Vital Signs: Vital signs: Vital Signs Temperature 98.2 F 04/11/20 04:00 Pulse Rate 93 04/11/20 06:00 Respiratory Rate 20 H 04/11/20 05:00 Blood Pressure 114/66 04/11/20 05:00 Pulse Oximetry 93 04/11/20 00:04 MDM - Extremity (Nontraumatic) MDM Narrative: Medical decision making narrative: See the midlevel providers note for history and physical examination. Essentially this is a 59-year-old male with a history of atrial fibrillation, congestive heart failure who has had increasing leg and body swelling over sev eral days. His database management specialist has changed dose of his diuretics but it is not helping. He came into the emergency department and after discussion with his database management specialist he is being admitted to the hospital for intravenous diuresis. He has hypokalemia on admission and he is replaced with 40 mEq of potassium intravenously and another 40 mEq orally. Medical Records: Attestation: I reviewed the patient's medical records. Lab Data: Labs: Lab Results 12/05/20 12/05/20 12/05/20 Range/Units 16:15 16:15 16:15 WBC 7.7 (4.0-10.0) 10^3/ uL RBC 3.95 L (4.1-5.3) 10^6/u L Hgb 9.6 L (11.7-16.6) g/dL Hct 32.4 L (42.0-52.0) % MCV 82.0 (80-94) fL MCH 24.3 L (28.0-34.0) pg MCHC 29.6 L (30.0-36.0) g/dL RDW 21.0 H (12.1-15.1) % Plt Count 212 (130-400) 10^3/c mm MPV 9.7 (7.4-10.4) fL Neut % (Auto) 60.2 % Lymph % (Auto) 24.7 % Harper % (Auto) 10.3 % Eos % (Auto) 3.1 % Baso % (Auto) 1.3 % Neut # (Auto) 4.62 (1.8-7.7) 10^3/u L Lymph # (Auto) 1.9 (0.8-4.8) 10^3/u L Harper # (Auto) 0.8 (0.2-0.9) 10^3/u L Eos # (Auto) 0.2 (0.0-0.8) 10^3/u L Baso # (Auto) 0.1 (0.0-0.1) 10^3/u L Nucleated RBC % (a uto) 0 % Nucleated RBCs # 0.0 /100WBC PT 32.10 H (12.1-14.9) SECO NDS INR 2.98 H (0.8-1.2) APTT 48.2 H (23.9-36.7) SECO NDS Sodium 133 L (136-145) mmol/L Potassium 2.4 L* (3.5-5.1) mmol/L Chloride 92 L (98-107) mmol/L Carbon Dioxide 29 (22-29) mmol/L Anion Gap 14.4 (5-19) BUN 11 (8-23) mg/dL Creatinine 1.0 (0.7-1.2) mg/dL GFR Calculation 76.0 L (90-130) mL/min Glucose 110 (65-115) mg/dL Calculated Osmolal ity 276 L (285-295) mOsm/k g Calcium 8.1 L (8.5-10.5) mg/dL Magnesium (1.7-2.3) mg/dL Total Bilirubin 2.4 H (0.15-1.2) mg/dL AST 24 (0-40) U/L ALT 11 (0-41) U/L Alkaline Phosphata se 197 H (40-130) IU/L Troponin T Baselin e (0-15) ng/L NT-Pro-B Natriuret Pep 1341 H (0-125) pg/mL Total Protein 7.7 (6.6-8.7) g/dL Albumin 3.4 L (3.5-5.2) g/dL Globulin 4.3 (1.3-4.6) g/dL 04/10/20 04/10/20 Range/Units 16:15 16:15 WBC (4.0-10.0) 10^3/ uL RBC (4.1-5.3) 10^6/u L Hgb (11.7-16.6) g/dL Hct (42.0-52.0) % MCV (80-94) fL MCH (28.0-34.0) pg MCHC (30.0-36.0) g/dL RDW (12.1-15.1) % Plt Count (130-400) 10^3/c mm MPV (7.4-10.4) fL Neut % (Auto) % Lymph % (Auto) % Harper % (Auto) % Eos % (Auto) % Baso % (Auto) % Neut # (Auto) (1.8-7.7) 10^3/u L Lymph # (Auto) (0.8-4.8) 10^3/u L Harper # (Auto) (0.2-0.9) 10^3/u L Eos # (Auto) (0.0-0.8) 10^3/u L Baso # (Auto) (0.0-0.1) 10^3/u L Nucleated RBC % (a uto) % Nucleated RBCs # /100WBC PT (12.1-14.9) SECO NDS INR (0.8-1.2) APTT (23.9-36.7) SECO NDS Sodium (136-145) mmol/L Potassium (3.5-5.1) mmol/L Chloride (98-107) mmol/L Carbon Dioxide (22-29) mmol/L Anion Gap (5-19) BUN (8-23) mg/dL Creatinine (0.7-1.2) mg/dL GFR Calculation (90-130) mL/min Glucose (65-115) mg/dL Calculated Osmolal ity (285-295) mOsm/k g Calcium (8.5-10.5) mg/dL Magnesium 1.7 (1.7-2.3) mg/dL Total Bilirubin (0.15-1.2) mg/dL AST (0-40) U/L ALT (0-41) U/L Alkaline Phosphata se (40-130) IU/L Troponin T Baselin e 46 H (0-15) ng/L NT-Pro-B Natriuret Pep (0-125) pg/mL Total Protein (6.6-8.7) g/dL Albumin (3.5-5.2) g/dL Globulin (1.3-4.6) g/dL Imaging Data^: CXR: Attestation: I personally reviewed and interpreted this imaging study as follows: Radiologist's impression: [address] [address] XRay Report Signed Patient: Leroy Gautam #: [id number] : 9Acct#:[id number] Age/Sex: 59 / MADM Date: 04/10/20 Loc: [facility]/Bed: Attending Dr: Ordering Provider/Ordering MD: Isabel Portillo Date of Service: 04/10/20 Procedure(s): XR chest 1V portable [id number] Accession Number(s): [id number] Report Number: [id number] PROCEDURE INFORMATION: Exam: XR Chest, 1 View Exam date and time: 04/10/2020 4:44 PM Age: 59 years old Clinical indication: Dyspnea; Additional info: Syncope TECHNIQUE: Imaging protocol: XR of the chest Views: 1 view. COMPARISON: CR (CHEST, ) 02/07/2020 6:56 AM FINDINGS: Tubes, catheters and devices: There is a permanent pacemaker present. Lungs: Increased pulmonary vascularity and mild bilateral interstitial infiltrates noted. Findings are suggestive of pulmonary edema/CHF. Pleural space: No pleural effusion. No pneumothorax. Heart/Mediastinum: Cardiomegaly is present. Bones/joints: Unremarkable. XR/XR chest 1V portable [id number] IMPRESSION: 1. Increased pulmonary vascularity and mild bilateral interstitial infiltrates noted. Findings are suggestive of pulmonary edema/CHF. 2. There is no interval change from the prior examination. Dictated By:Hector Mendosa MD Signed By:Hector Mendosa MDSigned Date/Time:04/10/201803 DD/ 02 US: Radiologist's impression: [address] [address] Ultrasound Report Signed Patient: Leroy Gautam #: [id number] : 9Acct#:[id number] Age/Sex: 59 / MADM Date: 04/10/20 Loc: [facility]/Bed: Attending Dr: Ordering Provider/Ordering MD: Isabel Portillo Date of Service: 04/10/20 Procedure(s): [place] [id number] Accession Number(s): [id number] Report Number: [id number] PROCEDURE INFORMATION: Exam: US Duplex Right Lower Extremity Veins, Limited Exam date and time: 04/10/2020 3:55 PM Age: 59 years old Clinical indication: Swelling (edema) of limb; Lower extremity, right; Additional info: Erythema, swelling TECHNIQUE: Imaging protocol: Real-time Duplex ultrasound of the Right Lower Extremity with 2-D ellis scale, color Doppler flow and spectral waveform analysis with image documentation. Limited exam was focused on the right lower extremity veins. COMPARISON: No relevant prior studies available. FINDINGS: Right deep veins: Unremarkable. The common femoral, femoral, proximal profunda femoral and popliteal veins are patent without thrombus. Normal Doppler waveforms. Normal compressibility and/or augmentation response. Right superficial veins: Unremarkable. Saphenofemoral junction is patent without thrombus. Soft tissues: Soft tissue edema in the distal lower extremity noted. US/[place] [id number] IMPRESSION: No evidence of deep vein thrombosis, right lower extremity. Dictated By:Hector Mendosa MD Signed By:Hector Mendosa MDSigned Date/Time:04/10/201722 DD/ 20 EKG Data^: EKG 1: Attestation: I personally reviewed and interpreted this EKG as follows: EKG interpretation date: 04/10/20 EKG interpretation time: 17:39 Prior EKG tracings: not available for review Interpretation: Paced rhythm Heart rate 68 bpm. Pacemaker function: normal pacer function EKG 2: Attestation: I personally reviewed and interpreted this EKG as follows: EKG interpretation date: 04/10/20 EKG interpretation time: 21:47 Prior EKG tracings: available for review Interpretation: Ventricular paced rhythm. Heart rate 62 bpm. Pacemaker function: normal pacer function Discharge Plan Discharge Patient Disposition: Admitted As Inpatient Admit Provider: Charles Delgado Clinical Impression: Hypokalemia CHF (congestive heart failure) Qualifiers: Heart failure type: diastolic Heart failure chronicity: acute on chronic Qualified Code(s): I50.33 - Acute on chronic diastolic (congestive) heart failure Condition: Stable Sign Out Sign Out Data: Patient Sign Out occurred on 04/10/20 at 18:38. Patient's care was discussed, and care was transferred from ARUNA Bardales to Dylan Persaud MD, [facility]. Sign Out Comment: End of shift - transfer to Dr Persaud, more than likely will need hospitalization due to failure of oral diuresis. Last updated by Isabel Portillo ARNP at 04/10/20 17:12 Coding Level of Care Code ED Secondary Special Education Teacher for Chg Fwd Exam Comprehensive
[2020-04-10 16:24] LABS: Basophils # 0.1 10^3/uL (0.0-0.1); Basophils % 1.3 %; Eosinophils # 0.2 10^3/uL (0.0-0.8); Eosinophils % 3.1 %; Hematocrit 32.4 % (42.0-52.0); Hemoglobin 9.6 g/dL (11.7-16.6); Lymphocytes # 1.9 10^3/uL (0.8-4.8); Lymphocytes % 24.7 %; Mean Corpuscular HGB Conc 29.6 g/dL (30.0-36.0); Mean Corpuscular Hemoglobin 24.3 pg (28.0-34.0); Mean Platelet Volume 9.7 fL (7.4-10.4); Monocytes # 0.8 10^3/uL (0.2-0.9); Monocytes % 10.3 %; Neutrophils # 4.62 10^3/uL (1.8-7.7); Neutrophils % 60.2 %; Nucleated Red Blood Cells % 0 %; Platelet Count 212 10^3/cmm (130-400); Red Blood Count 3.95 10^6/uL (4.1-5.3); White Blood Count 7.7 10^3/uL (4.0-10.0)
[2020-04-10 16:38] LABS: INR 2.98 (0.8-1.2)
[2020-04-10 16:39] LABS: Partial Thromboplastin Time 48.2 SECONDS (23.9-36.7)
[2020-04-10] MEDS: FUROsemide 10 mg/mL SDV 4mL 40 MG IVP (16:43)
[2020-04-10 16:45] LABS: Troponin(5th) Baseline 46 ng/L (0-15)
[2020-04-10 17:10] LABS: Alanine Aminotransferase 11 U/L (0-41); Albumin Level 3.4 g/dL (3.5-5.2); Alkaline Phosphatase 197 IU/L (40-130); Anion Gap 14.4 (5-19); Aspartate Amino Transferase 24 U/L (0-40); Blood Urea Nitrogen 11 mg/dL (8-23); Calcium 8.1 mg/dL (8.5-10.5); Carbon Dioxide 29 mmol/L (22-29); Chloride 92 mmol/L (98-107); Globulin 4.3 g/dL (1.3-4.6); Glucose 110 mg/dL (65-115); NT Pro B Type Natriuretic Pept 1341 pg/mL (0-125); Osmolality Calculated 276 mOsm/kg (285-295); Sodium 133 mmol/L (136-145); Total Bilirubin 2.4 mg/dL (0.15-1.2); Total Protein 7.7 g/dL (6.6-8.7)
[2020-04-10 17:25] LABS: Potassium 2.4 mmol/L (3.5-5.1)
[2020-04-10 17:38] LABS: Magnesium 1.7 mg/dL (1.7-2.3)
--- NOTE | 2020-04-10 17:54 | ECG_ITS ---
[facility] Test Date: 2020-04-10 Pat Name: Leroy Gautam Department: Room: Gender: Male [employer] Hooper: : 1960 Requested By: Isabel Bishop Order Number: [id number] Darshan MD: BLADIMIR NAVARRO Measurements Intervals [place] Rate: 68 P: TX: QRS: -64 QRSD: 120 T: 137 QT: 419 QTc: 447 Interpretive Statements atrial fib with paced rythm ELECTRONIC VENTRICULAR PACEMAKER -- CONTOUR ANALYSIS BASED ON INTRINSIC RHYTHM LEFT ANTERIOR FASCICULAR BLOCK [QRS AXIS <= -45, QR IN I, RS IN II] POSSIBLE ANTERIOR MYOCARDIAL INFARCTION , PROBABLY OLD [30 ms Q WAVE IN V3/V4, OR R < 0.2 mV IN V4] INFERIOR MYOCARDIAL INFARCTION , PROBABLY OLD [40+ ms Q WAVE AND/OR ST/T ABNORMALITY IN II/aVF] Compared to ECG 04/10/2020 16:09:31 no change Electronically Signed On 04-11-2020 15:49:31 THREAT MONITORING ANALYST by BLADIMIR NAVARRO [id number]
--- NOTE | 2020-04-10 17:56 | PC.NURSE ---
Void 300 mls of yellow urine
--- NOTE | 2020-04-10 18:42 | PC.NURSE ---
Voided another 300mls of yellow urine
[2020-04-10] MEDS: potassium chloride premix 100 ML 25 MEQ IV (19:12)
[2020-04-10] MEDS: potassium chloride oral liq 20 mEq/15 mL UDC 40 MEQ PO (20:41)
[2020-04-10] MEDS: ondansetron 2 mg/ML SDV 2 mL 4 MG IVP (20:55)
--- NOTE | 2020-04-10 21:31 | P.HP_ITS ---
Providers/Chief Complaint Admitting Physician: Charles Delgado MD Primary Care Provider: Ahmet Jasso MD Chief Complaint: BILAT LOWER EXT SWELLING History of Present Illness Leroy Gautam is a 59 year old male 59 with a past medical history of hypertension, coronary artery disease, HFReF and interstitial lung disease on 2 L home oxygen was admitted for progressively worsening bilateral lower extremity swelling as well as worsening shortness of breath.Patient reported that he has been worsening dyspnea over the past week with increasing LE swelling. He is also complaining of orthopnea as well as PND. On review of system he denies any chest pain, nausea, vomiting, headache, fever, cough, urinary complaints, abdominal pain. ECA course: Imaging studies: X-ray chest: Increased pulmonary vascular congestion, and bilateral interstitial infiltrate, consistent with CHF. Lower extremity Doppler vein bilateral: No DVT. EKG: Baseline Paced rhythm with no ST changes ( V paced rhythm) Pertinent lab: H&H: 9.6/32, serum potassium: 2.4 Baseline troponin: 46, proBNP: 1341 ECA medication: 100 mg IV Lasix x1 dose . 80 mEq potassium ( 40 mEq oral and 40 mEq IV ) Prior cardiac work-up: Myocardial perfusion scan (July 2019) : Small to Medium-size area of fixed perfusion defect noted from basal to distal inferior wall with mild randal- infarct ischemia involving the distal inferior wall. Ejection fraction 24 %. 2D echo: July 2019: LV dysfunction- with diminished ejection fraction of 30 %. Review of Systems Const: Denies: fever(s), chills or body aches Card: Denies: palpitations or edema Resp: Denies: dyspnea, productive cough, wheezing or pain on inspiration GI: Denies: abdominal pain, nausea, vomiting, diarrhea or constipation : Denies: flank pain or difficulty urinating Musc: Denies: back pain, extremity pain or extremity swelling Neuro: Denies: headache(s), difficulty walking or confusion Medications/Allergies Home Medications Medication Instructions Recorded Confirmed Last Taken Type aspirin 81 mg tablet,delayed 81 mg PO DAILY@0900 tab 05/01/19 04/10/20 04/10/20 History release metolazone 2.5 mg tablet 2.5 mg PO PRN PRN tab 05/01/19 04/10/20 01/12/20 History nitroglycerin 0.4 mg sublingual 0.4 mg SUBLINGUAL Q5M PRN 05/01/19 04/10/20 12/16/19 History tablet albuterol sulfate 2.5 mg INHALATION Q4H PRN 07/17/19 04/10/20 02/07/20 History amiodarone 100 mg PO DAILY@0900 12/09/19 04/10/20 04/10/20 History metoprolol succinate 50 mg PO BEDTIME@199912/09/19 04/10/20 04/09/20 History torsemide 100 mg tablet 100 mg PO DAILY #90 tab 12/15/19 04/10/20 02/07/20 Rx Portable oxygen with concentrator #1 ea 01/16/20 04/10/20 Unknown Rx Aldactone 25 mg PO DAILY@14304/10/20 04/10/20 04/09/20 History atorvastatin 40 mg PO BEDTIME@199904/10/20 04/10/20 04/09/20 History furosemide 40 mg PO DAILY 04/10/20 04/10/20 04/10/20 08:00 History levothyroxine 25 mcg PO DAILY@0904/10/20 04/10/20 04/10/20 History potassium chloride 20 meq PO DAILY PRN 04/10/20 04/10/20 04/10/20 History warfarin 2 mg PO TID@,,04/10/20 04/10/20 04/10/20 History Allergies Allergy/AdvReac Type Severity Reaction Status Date / Time No Known Allergies Allergy Verified 03/05/20 11:39 PFSH Acute PFSH: Medical History (Updated 04/10/20 @ 23:28 by Charles Delgado MD) Anemia Atrial fibrillation CAD in [place] artery Cardiomyopathy CHF (congestive heart failure) Combined systolic and diastolic. LVEF by LV gram in 2017 was 40%. CVA (cerebral vascular accident) HTN (hypertension) Hyperlipidemia Hypotension Hypothyroid Nicotine dependence, cigarettes, with unspecified nicotine-induced disorders Orthostasis SALONI (obstructive sleep apnea) Pacemaker 2013- dual chamber Panlobular emphysema Paroxysmal A-fib PVD (peripheral vascular disease) Vitamin B12 deficiency Surgical History H/O coronary angioplasty 2013 H/O reduction of closed fracture ankle History of cardiac radiofrequency ablation (RFA) 94858 Hx of appendectomy S/P appendectomy Status cardiac pacemaker Family History Father Myocardial infarct Mother Myocardial infarct Other Family history of premature coronary artery disease Hypertension Social History Smoking and tobacco status: current every day smoker cigarettes Packs smoked per day: 0.5 Years cigarettes smoked: 40 [ Other cigarette details: Hx of 1PPD x 40 Years ] Quit status (tobacco): has tried quititng Second hand smoke exposure: Yes Smoking risk assessment/counseling performed?: Yes Alcohol intake: former Year of sobriety/quit date alcohol: 1980 Lives independently: Yes Household members: spouse Marital status: Current occupational status: disabled History of recent travel: No Current gender identity: Male Vitals/I&O/Wt Last Vital Signs Temp 97.6 F 04/10/20 15:30 Pulse 76 04/10/20 16:52 Resp 20 H 04/10/20 16:52 BP 127/71 04/10/20 16:52 Pulse Ox 94 04/10/20 16:52 Weight last 48 hrs Weight 136.078 kg Physical Exam 2 Const: COMMON NORMALS: patient oriented x3 HENMT: COMMON NORMALS: normocephalic and atraumatic HEAD & SCALP: normocephalic and atraumatic Eye: COMMON NORMALS: no scleral icterus Chest: COMMONS NORMALS: normal inspection of the chest and normal palpation of entire chest wall CHEST: Yes Symmetrical chest wall rise Resp: COMMON NORMALS: normal respiratory effort and No retractions EFFORT & INSPECTION: Yes symmetric chest movement AUSCULTATION: clear to auscultation bilaterally OTHER: Bilateral basal crackles present in both the lung, no wheezing no rhonchi Cardio: COMMON NORMALS: regular rate, regular rhythm, S1 normal heart sound present, S2 normal heart sound present, No gallops present (Cardio), No murmurs present (Cardio), No rub (Cardio) and Peripheral pulses 2+ throughout RATE: regular rate RHYTHM: regular rhythm HEART SOUNDS: S1 normal heart sound present and S2 normal heart sound present PERIPHERAL PULSES: Peripheral pulses 2+ throughout GI: COMMON NORMALS: Normal to inspection, nondistended, normoactive bowel sounds present, Soft to palpation, non-tender, No hepatosplenomegaly present and no masses AUSCULTATION: Yes normoactive bowel sounds PALPATION: Yes Soft to palpation and Yes No hepatosplenomegaly present RECTAL EXAM: Yes deferred Extremity: OTHER: 3+ bilateral pitting edema present in both the lower extremity up to the level of knee, with oozing clear fluids. Chronic skin changes Neuro: COMMON NORMALS: patient oriented x3 Data : 04/10/20 16:15 04/10/20 16:15 A&P Assessment and plan (1) CHF (congestive heart failure): Acute on chronic decompensated HFrEF. Continue Lasix 80 mg IV every 12 hours daily. Continue metoprolol 50 mg p.o. daily Continue spironolactone 25 mg p.o. oral daily Intake output Salt restriction (less than 2 g daily) Daily weight. Status: Chronic Qualifiers: Heart failure chronicity: chronic Heart failure type: systolic Qualified Code(s): I50.22 - Chronic systolic (congestive) heart failure (2) Atrial fibrillation: Currently rate controlled. Continue warfarin Status: Acute Qualifiers: Atrial fibrillation type: persistent (not longstanding) Qualified Code(s): I48.19 - Other persistent atrial fibrillation (3) Hypoxemic respiratory failure, chronic: Chronic hypoxemic respiratory failure secondary to interstitial lung disease needs 2 L of oxygen at home. Currently at baseline oxygen required. Continue supplemental oxygen. Nebs as needed Monitor x-ray chest Status: Acute (4) CAD in [place] artery: Continue aspirin 81 MG oral daily Continue atorvastatin gram oral daily Status: Acute (5) Hypothyroidism: Continue levothyroxine 25 mcg p.o. daily Status: Acute (6) Hypokalemia: Has received 80 mEq of potassium in the ER 40 MEQ IV at 40 oral. Continue 40 mEq potassium oral daily Monitor serum potassium Status: Acute (7) Anemia: Likely anemia of chronic disease H/H Stable : 9.6/32 Monitor CBC for now no need for transfusion. Status: Acute Additional A&P Information DVT prophylaxis: Not needed as on warfarin. CODE STATUS: Full code Disposition: Home Attestations Medical Necessity Statement*: Patient needs to be in hospital for management of acute decompensated heart failure. Anticipated length of stay greater than 2 midnight. 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
--- NOTE | 2020-04-10 21:54 | ECG_ITS ---
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: : 1960 Requested By: Isabel Bishop Order Number: [id number] Darshan MD: BLADIMIR NAVARRO Measurements Intervals [place] Rate: 62 P: IA: QRS: -64 QRSD: 104 T: 134 QT: 412 QTc: 421 Interpretive Statements Atrial fib with paced rythm ELECTRONIC VENTRICULAR PACEMAKER -- CONTOUR ANALYSIS BASED ON INTRINSIC RHYTHM LOW QRS VOLTAGE IN PRECORDIAL LEADS [QRS DEFLECTION < 1.0 mV IN CHEST LEADS] POSSIBLE ANTERIOR MYOCARDIAL INFARCTION , OF INDETERMINATE AGE [30 ms Q WAVE IN V3/V4, OR R < 0.2 mV IN V4] INFERIOR MYOCARDIAL INFARCTION , PROBABLY OLD [40+ ms Q WAVE AND/OR ST/T ABNORMALITY IN II/aVF] Compared to ECG 04/10/2020 17:39:46 No sig change Electronically Signed On 04-11-2020 15:48:57 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
[2020-04-10 23:04] LABS: Troponin 5 6HR 47.22 ng/L (0-15); Troponin 5 6HR Delta 1.22 ng/L (0-12)
[2020-04-11] VITALS (18 sets, daily range): BP systolic 97–138; BP diastolic 63–79; PULSE 62–93; RESP 16–29; TEMP 36.8–36.9; O2SAT 69–95; BMI 42.7
--- NOTE | 2020-04-11 00:49 | PC.NURSE ---
PT ARRIVED TO ROOM 101. PT LIPS AND EARS ARE BLUE. PT C/O BEING SOB. O2 AT 2L VIA NC. DR JORDAN CALLED AND GAVE CPAP ORDER OVER THE PHONE. PT DENIES PAIN. VS WNL. PT ORIENTATED TO ROOM. WILL CONTINUE TO MONITOR.
[2020-04-11 05:42] LABS: Basophils # 0.1 10^3/uL (0.0-0.1); Basophils % 0.9 %; Eosinophils # 0.3 10^3/uL (0.0-0.8); Eosinophils % 3.2 %; Hematocrit 31.1 % (42.0-52.0); Hemoglobin 8.8 g/dL (11.7-16.6); Lymphocytes # 1.9 10^3/uL (0.8-4.8); Lymphocytes % 21.9 %; Mean Corpuscular HGB Conc 28.3 g/dL (30.0-36.0); Mean Corpuscular Hemoglobin 23.3 pg (28.0-34.0); Mean Corpuscular Volume 82.5 fL (80-94); Mean Platelet Volume 9.7 fL (7.4-10.4); Monocytes # 0.8 10^3/uL (0.2-0.9); Monocytes % 9.7 %; Neutrophils # 5.46 10^3/uL (1.8-7.7); Neutrophils % 63.9 %; Nucleated Red Blood Cells % 0 %; Platelet Count 209 10^3/cmm (130-400); Red Blood Count 3.77 10^6/uL (4.1-5.3); Red Cell Distribution Width 21.4 % (12.1-15.1); White Blood Count 8.5 10^3/uL (4.0-10.0)
--- NOTE | 2020-04-11 05:49 | PC.NURSE ---
PT IS RESTING IN BED. PT DENIES PAIN AT THIS TIME. PT RIGHT LEG IS WEEPING AND DRESSED WITH AN ABD AND WRAPPED IN KERLEX. WILL CONTINUE TO MONITOR.
[2020-04-11 06:35] LABS: Alanine Aminotransferase 12 U/L (0-41); Albumin Level 3.1 g/dL (3.5-5.2); Alkaline Phosphatase 186 IU/L (40-130); Anion Gap 14.6 (5-19); Aspartate Amino Transferase 25 U/L (0-40); Blood Urea Nitrogen 11 mg/dL (8-23); Calcium 8.2 mg/dL (8.5-10.5); Carbon Dioxide 27 mmol/L (22-29); Chloride 95 mmol/L (98-107); Globulin 4.1 g/dL (1.3-4.6); Glucose 146 mg/dL (65-115); Osmolality Calculated 280 mOsm/kg (285-295); Sodium 134 mmol/L (136-145); Total Protein 7.2 g/dL (6.6-8.7)
[2020-04-11 06:43] LABS: Potassium 2.6 mmol/L (3.5-5.1)
[2020-04-11 06:44] LABS: INR 2.98 (0.8-1.2)
--- NOTE | 2020-04-11 07:14 | PC.NURSE ---
CRITICAL POTASSIUM 2.[address] DR[address] DR JORDAN ORDERED 40MEQ OF POTASSIUM PO AND 40MEQ IV. DAYSHIFT NURSE SAID THAT SHE WOULD GIVE MEDS. WILL CONTINUE TO MONITOR.
[2020-04-11] MEDS: FUROsemide 10 mg/mL SDV 10mL 80 MG IVP ×2 (07:47→20:19)
[2020-04-11] MEDS: lidocaine 1% 5 ML in potassium chloride premix 100 ML 25 ML IV (07:48)
[2020-04-11] MEDS: potassium chloride ER 20 mEq Tablet 40 MEQ PO (07:49)
--- NOTE | 2020-04-11 08:00 | PC.NURSE ---
patient ears and lips noted to be cyonotic colored. o2 saturation 95%.
[2020-04-11] MEDS: amiodarone 200 mg Tablet 100 MG PO (08:46)
[2020-04-11] MEDS: aspirin 81 mg EC Tablet PO (08:46)
[2020-04-11] MEDS: warfarin 2 mg Tablet PO ×3 (08:46→20:19)
[2020-04-11] MEDS: levothyroxine 50 mcg Tablet 25 MCG PO (08:46)
--- NOTE | 2020-04-11 11:16 | USCV_ITS ---
Leroy Gautam Age: 59 Gender: M : 1960 Exam Date: 04/11/2020 13:09 Ordering Phys: Sukhjinder Sams MD Technologist: Eleanor Molina Exam Location: [facility] [place] Indication: CHF Exacerbation BP: 107 / 77 HR: 68 Rhythm: Sinus Technical Quality: Very technically difficult study MEASUREMENTS (Male / Female) Normal Values 2D ECHO LV Diastolic Diameter PLAX 5.4 cm 4.2 - 5.9 / 3.9 - 5.3 cm LV Systolic Diameter PLAX 3.8 cm LV Chamber Size 3.6 cm IVS Diastolic Thickness 1.3 cm 0.6 - 1.0 / 0.6 - 0.9 cm IVS Systolic Thickness 2.1 cm LVPW Diastolic Thickness 1.3 cm 0.6 - 1.0 / 0.6 - 0.9 cm LVPW Systolic Thickness 1.2 cm RV Chamber Size 4.8 cm LVOT Diameter 1.9 cm LV Ejection Fraction 2D Teich 55.1 % LA Diameter 3.5 cm LA Width 4.1 cm LA Height 7.5 cm RA Width 4.4 cm RA Height 6.7 cm Aorta at Sinotubular Diameter 2.5 cm M-MODE LV Diastolic Diameter MM 4.6 cm 4.2 - 5.9 / 3.9 - 5.3 cm LV Systolic Diameter MM 4.0 cm LV Ejection Fraction MM Teich 26.5 % IVS Diastolic Thickness MM 1.7 cm 0.6 - 1.0 / 0.6 - 0.9 cm IVS Systolic Thickness MM 1.9 cm LVPW Diastolic Thickness MM 1.2 cm 0.6 - 1.0 / 0.6 - 0.9 cm LVPW Systolic Thickness MM 1.4 cm RV Diastolic Diameter MM 4.8 cm Aortic Annulus Diameter 3.3 cm LA Ao Ratio MM 0.8 MV E Point Septal Separation 0.7 cm DOPPLER AV Peak Velocity 176.0 cm/s LVOT Peak Velocity 118.0 cm/s AV Area Cont Eq vti 1.9 cm squared AV Area Cont Eq pk 1.8 cm squared MV Area PHT 4.8 cm squared Mitral E to A Ratio 2.9 MV E' Velocity 56.0 cm/s Mitral E to MV E' Ratio 8.9 Mitral E to LV E' Lateral Ratio 9.5 Mitral E to LV E' Septal Ratio 8.5 TR Peak Velocity 266.9 cm/s TR Peak Gradient 28.5 mmHg TR Mean Velocity 213.0 cm/s TR Mean Gradient 19.9 mmHg TR Velocity Time Integral 79.9 cm TV Peak E Velocity 130.0 cm/s Right Atrial Pressure 15.0 mmHg Pulmonary Artery Systolic Pressu 43.5 mmHg FINDINGS Left Ventricle Moderately increased left ventricular cavity size. Moderately decreased left ventricular systolic function. Left ventricular ejection fraction is estimated at 40 %. Flattened septum in diastole consistent with right ventricle volume overload. Flattened septum in systole consistent with right ventricle pressure overload. Right Ventricle Moderately increased right ventricular size. Moderately decreased right ventricular systolic function. Moderate pulmonary hypertension, RVSP 43.5 mmHg. Catheter/pacemaker wire visualized in the right ventricle. Right Atrium Moderately increased right atrial size. Catheter/pacemaker wire in the right atrial cavity. There appeared to be echogenic mass most likely fibrous tissue in the right atrium. Left Atrium The left atrium is normal in size. Mitral Valve Structurally normal mitral valve without significant stenosis or prolapse. There is mild mitral regurgitation. Aortic Valve Structurally normal aortic valve without significant sclerosis or stenosis. There is no aortic regurgitation. Tricuspid Valve Moderate tricuspid valve regurgitation. Pulmonic Valve Structurally normal pulmonic valve without significant stenosis. There is no pulmonic regurgitation. Pericardium Normal pericardium without effusion. Aorta Normal ascending aorta dimension. CONCLUSIONS 1-Moderately increased left ventricular cavity size. Moderately decreased left ventricular systolic function. Left ventricular ejection fraction is estimated at 40 %. Flattened septum in diastole consistent with right ventricle volume overload. Flattened septum in systole consistent with right ventricle pressure overload. 2-Moderately increased right ventricular size. Moderately decreased right ventricular systolic function. Moderate pulmonary hypertension, RVSP 43.5 mmHg. Catheter/pacemaker wire visualized in the right ventricle. 3-Moderately increased right atrial size. Catheter/pacemaker wire in the right atrial cavity. There appeared to be echogenic mass most likely fibrous tissue in the right atrium. 4-Structurally normal mitral valve without significant stenosis or prolapse. There is mild mitral regurgitation. 5-Structurally normal aortic valve without significant sclerosis or stenosis. There is no aortic regurgitation. 6-Moderate tricuspid valve regurgitation. 7-There is no pericardial effusion. 8-No significant change since the prior echocardiogram study of 07/23/19. Yomi Amor MD (Electronically Signed) Final Date: 11 April 2020 14:33 S
--- NOTE | 2020-04-11 11:23 | PC.CHAP ---
Pastoral Care Encounter/Spiritual Assessment Type of Contact [] Declined client representative visit [] Patient/Family/Request visit [] Outpatient visit [] Follow-up visit [] Physician referral [] Code/Alert [X] Routine visit [] Staff referral [] Actively dying [] Patient sleeping [] Family support [] [] Out of room [] Palliative care [] [] Receiving care in room [] Pre-surgical visit [] Trauma [] Long length of stay [] ICU visit [] Other: Relational/Emotional Strength [X] Patient feels connected with others/family/visitors/staff [] Distress [] Loneliness/isolation [] Abandonment Spirituality of Patient [] Person of Nano [] Attends Scientologist of their Nano [] Believes in Prayer [] Reads Bible or Caodaism materials [] There are Spiritual issues to be addressed Office Professional Interventions [] Prayer [X] Active listening [X] Non-anxious presence [] Spiritual/emotional support [] Crisis/trauma care [] Spiritual counseling [] Bereavement support [] Provided bereavement packet [] Provided Bible/devotional materials [] Provided toy/stuffed animal, coloring book to patient or family member [] Provided Communion [] Anointing/[place] [] Salvation [X] Completed spiritual assessment [X] Other: advocacy Impact on Illness or Injury [] Angry [] Fearful [] Anxious [] Often cries [] Exhaustion [] Unable to work [] Unable to attend jew [] Unable to walk/stand [] Unable to read [] Unable to drive [] Unable to eat/drink [] Unable to sleep [] Unable to be with family [] Patient intubated [] Other: Summary: Pt trying to rest so my assessment was brief. His primary need was a Dr. Lochkart, which I informed the nurse. Time spent with patient: <5 mins
--- NOTE | 2020-04-11 11:27 | P.PN_ITS ---
Subjective Subjective: Interval history: This is a 59-year-old male with history of hypertension, coronary artery disease, interstitial lung disease on 2 L of home oxygen who was admitted with worsening extremity swelling and dyspnea. The patient had imaging in the ER which showed increased pulmonary vascular congestion. Patient was also noted to have a paced rhythm on EKG. He has been given Lasix. He is noted to have significantly low hypokalemia. He reports overall he feels better. But he continues to have significant weeping and lower extremity edema. He denies chest pain. He is on oxygen currently. Prior cardiac work-up: Myocardial perfusion scan (July 2019) : Small to Medium-size area of fixed perfusion defect noted from basal to distal inferior wall with mild randal-infar ct ischemia involving the distal inferior wall. Ejection fraction 24 %. 2D echo: July 2019: LV dysfunction- with diminished ejection fraction of 30 %. Medications: Reviewed: Yes Vitals/I&O/Wt Last Vital Signs Temp 98.2 F 04/11/20 04:00 Pulse 79 04/11/20 08:14 Resp 17 04/11/20 08:14 BP 127/73 04/11/20 08:14 Pulse Ox 93 04/11/20 08:14 04/10/20 04/11/20 04/11/20 22:59 06:59 14:59 Intake Total 220 / 220 120 / 340 444 / 444 Output Total 600 / 600 Balance 220 / 220 -480 / -260 444 / 444 Weight last 48 hrs Weight 306 lb 12.8 oz Weight 307 lb 11.2 oz Weight 300 lb Physical Exam Const: COMMON NORMALS: no acute distress and patient oriented x3 NUTRITIONAL APPEARANCE: obese ORIENTATION/CONSCIOUSNESS: Yes awake and Yes oriented to person Resp: COMMON NORMALS: normal respiratory effort and clear to auscultation bilaterally EFFORT & INSPECTION: Yes able to speak in complete sentences and Yes symmetric chest movement AUSCULTATION: clear to auscultation bilaterally Cardio: COMMON NORMALS: regular rate and regular rhythm RATE: regular rate RHYTHM: regular rhythm GI: COMMON NORMALS: non-tender PALPATION: No Tenderness to palpation present (GI) Extremity: OTHER: Lower extremity edema with weeping Neuro: COMMON NORMALS: patient oriented x3 and CN's II-XII intact bilaterally SENSORIUM/ORIENTATION: Yes oriented to person Skin: OTHER: blue tinged extremities Data : 04/11/20 04:42 12/06/20 04:42 A&P Assessment and plan (1) Hypoxemic respiratory failure, chronic: Likely multifactorial as he has chronic lung disease and chronic oxygen. Exacerbated with fluid overload Continue diuresis We will repeat chest x-ray in the morning taper oxygen as tolerated Status: Acute (2) Hypokalemia: Will replace and recheck check a magnesium with next lab draw Status: Acute (3) Atrial fibrillation: Currently rate controlled Continue metoprolol, warfarin, amiodarone Status: Acute Qualifiers: Atrial fibrillation type: persistent (not longstanding) Qualified Code(s): I48.19 - Other persistent atrial fibrillation (4) CAD in [place] artery: Aspirin beta-krista statin Status: Acute (5) CHF (congestive heart failure): We will repeat echocardiogram continue IV diuresis continue beta-krista spironolactone Status: Chronic Qualifiers: Heart failure chronicity: acute on chronic Heart failure type: diastolic Qualified Code(s): I50.33 - Acute on chronic diastolic (congestive) heart failure Additional A&P Information DVT: warfarin Attestations Medical Necessity Statement*: Leroy Gautam's hospital stay will require greater than 2 midnights for CHF exacerbation Coding Level of Care Code Acute 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
--- NOTE | 2020-04-11 12:50 | PM.CONSULT ---
Providers/Reason For Consult Consulting Physican/Specialty*: Cardiology Reason for Consult*: Decompensated systolic heart failure with anasarca Attending Physician: Sukhjinder Sams MD Primary Care Provider: Ahmet Jasso MD History of Present Illness History of Present Illness Leroy Gautam is a 59 year old male who is well-known to me with past medical history significant for noncompliance with food salt intake and medicine presented with generalized anasarca worsening of heart failure shortness of breath PND orthopnea despite of optimization of medicine as an outpatient. Patient has history of coronary artery disease but also with nonischemic cardiomyopathy, uncontrolled hypertension and atrial fibrillation, patient is status post ICD placement with history of severely dysfunctional LV. He was noted to have hypokalemia as he does not like to take potassium despite of our multiple reminders and insistence. He was started on IV and oral potassium with slow infusion. He has been given IV 80 twice daily of Lasix. Currently he is stable laying in the bed. He denies fever chills nausea vomiting diarrhea. He denies flu like symptoms. He denies any chest pain. Cardiac markers are within acceptable limits under this current circumstances. EKG shows paced rhythm. Review of Systems General: Reports: 10 or more systems reviewed and unremarkable except in HPI and below Const: Reports: fatigue; Denies: fever(s), chills, body aches or diaphoresis Eyes: Denies: blurry vision, photophobia or eye redness ENMT: Denies: throat pain, enlarged tonsils, hoarseness, dental pain, disequilibrium, nasal discharge or nasal congestion Card: Reports: chest pain, swelling of feet/ankles, dyspnea on exertion and leg pain with exertion; Denies: palpitations, irregular heart rhythm, edema, syncope or pre-syncope Resp: Reports: non-productive cough; Denies: dyspnea, productive cough, wheezing or pain on inspiration GI: Reports: bloating; Denies: abdominal pain, nausea, vomiting, dysphagia, heartburn, diarrhea or constipation : Denies: flank pain, difficulty urinating, dysuria, urinary urgency, difficulty starting urination or urinary incontinence Musc: Denies: neck pain, back pain, extremity pain, extremity swelling, joint warmth or muscle weakness Skin/Breast: Reports: erythema (RLE) and changes in skin color (BLE); Denies: rash or pruritus Neuro: Denies: headache(s), weakness in extremities, difficulty walking, dizziness, confusion or behavioral changes Psych: Denies: anxiety, depression or sleeping more Lauri/Lymph: Denies: easy bruising All/Imm: Denies: acute wheezing Meds/Allergies Home Medications and Allergies Home Medications Medication Instructions Recorded Confirmed Last Taken Type aspirin 81 mg tablet,delayed 81 mg PO DAILY@0900 tab 05/01/19 04/10/20 04/10/20 History release metolazone 2.5 mg tablet 2.5 mg PO PRN PRN tab 05/01/19 04/10/20 01/12/20 History nitroglycerin 0.4 mg sublingual 0.4 mg SUBLINGUAL Q5M PRN 05/01/19 04/10/20 12/16/19 History tablet albuterol sulfate 2.5 mg INHALATION Q4H PRN 07/17/19 04/10/20 02/07/20 History amiodarone 100 mg PO DAILY@0900 12/09/19 04/10/20 04/10/20 History metoprolol succinate 50 mg PO BEDTIME@199912/09/19 04/10/20 04/09/20 History torsemide 100 mg tablet 100 mg PO DAILY #90 tab 12/15/19 04/10/20 02/07/20 Rx Portable oxygen with concentrator #1 ea 01/16/20 04/10/20 Unknown Rx atorvastatin 40 mg PO BEDTIME@199904/10/20 04/10/20 04/09/20 History furosemide 40 mg PO DAILY 04/10/20 04/10/20 04/10/20 08:00 History levothyroxine 25 mcg PO DAILY@0900 04/10/20 04/10/20 04/10/20 History potassium chloride 10 meq PO DAILY PRN 04/10/20 04/10/20 04/10/20 History spironolactone [Aldactone] 25 mg PO DAILY@1600 04/10/20 04/10/20 04/09/20 History warfarin See Rx Instructions .ROUTE .COMPLEX 04/10/20 04/10/20 04/10/20 History Allergies Allergy/AdvReac Type Severity Reaction Status Date / Time No Known Allergies Allergy Verified 03/05/20 11:39 Current Medications Current Medications Generic Name Dose Route Start Last Admin Trade Name Freq PRN Reason Stop Dose Admin Amiodarone HCl 100 mg 04/11/20 09:00 04/11/20 08:46 Amiodarone 200 Mg Tablet PO 100 mg DAILY@0900 CARLOS Administration Aspirin 81 mg 04/11/20 09:00 04/11/20 08:46 Aspirin 81 Mg Ec Tablet PO 81 mg DAILY@0900 CARLOS Administration Furosemide 80 mg 04/11/20 08:00 04/11/20 07:47 Furosemide 10 Mg/Ml Sdv 10ml IVP 80 mg Q12H CARLOS Administration Levothyroxine Sodium 25 mcg 04/11/20 09:00 04/11/20 08:46 Levothyroxine 50 Mcg Tablet PO 25 mcg DAILY@0900 CARLOS Administration Potassium Chloride 40 meq 04/11/20 09:00 04/11/20 07:49 Potassium Chloride Er 20 Meq Tablet PO 40 meq DAILY CARLOS Administration Warfarin Sodium 2 mg 04/11/20 09:00 04/11/20 08:46 Warfarin 2 Mg Tablet PO 2 mg TID@09,15,21 CARLOS Administration PFSH Acute PFSH: Medical History (Updated 04/11/20 @ 13:11 by Yomi Amor MD) Anemia Atrial fibrillation CAD in [place] artery Cardiomyopathy CHF (congestive heart failure) Combined systolic and diastolic. LVEF by LV gram in 2017 was 40%. CVA (cerebral vascular accident) HTN (hypertension) Hyperlipidemia Hypotension Hypothyroid Nicotine dependence, cigarettes, with unspecified nicotine-induced disorders Orthostasis SALONI (obstructive sleep apnea) Pacemaker 2013- dual chamber Panlobular emphysema Paroxysmal A-fib PVD (peripheral vascular disease) Vitamin B12 deficiency Surgical History H/O coronary angioplasty 2013 H/O reduction of closed fracture ankle History of cardiac radiofrequency ablation (RFA) 54529 Hx of appendectomy S/P appendectomy Status cardiac pacemaker Family History Father Myocardial infarct Mother Myocardial infarct Other Family history of premature coronary artery disease Hypertension Social History Smoking and tobacco status: current every day smoker cigarettes Packs smoked per day: 0.5 Years cigarettes smoked: 40 [ Other cigarette details: Hx of 1PPD x 40 Years ] Quit status (tobacco): has tried quititng Second hand smoke exposure: Yes Smoking risk assessment/counseling performed?: Yes Alcohol intake: former Year of sobriety/quit date alcohol: 1980 Lives independently: Yes Household members: spouse Marital status: Current occupational status: disabled History of recent travel: No Current gender identity: Male Dietary Habits: Current diet type/program: regular Caffeine: Yes Caffeine intake frequency: carbonated beverages Number of carbonated beverage servings: 4 and tea Number of tea servings: 10 Exercise: What type of physical activity do you participate in?: none Safety: Seatbelt use: always Home Safety: Working smoke detector in home: Yes Fire extinguisher in home: Yes Carbon monoxide detector in home: Yes Personal Safety: Do you feel safe at home: Yes Vitals/I&O/Wt Last Vital Signs Temp 98.2 F 04/11/20 04:00 Pulse 79 04/11/20 08:14 Resp 17 04/11/20 08:14 BP 127/73 04/11/20 08:14 Pulse Ox 93 04/11/20 08:14 04/10/20 04/11/20 04/11/20 22:59 06:59 14:59 Intake Total 220 / 220 120 / 340 444 / 444 Output Total 600 / 600 Balance 220 / 220 -480 / -260 444 / 444 Weight last 48 hrs Weight 306 lb 12.8 oz Weight 307 lb 11.2 oz Weight 300 lb Physical Exam Narrative: EXAM NARRATIVE: GENERAL: Patient is alert, awake and oriented x3. NECK: No jugular vein distension. HEENT: No cyanosis. No icterus. No pallor. HEART: Regular S1 and S2. No murmur, rub or gallop. LUNGS: Bilateral basal to mid crackles ABDOMEN: Soft, nontender and distended with abdominal wall edema CENTRAL NERVOUS SYSTEM: Grossly nonfocal. EXTREMITIES: Lower extremities 2+ edema bilaterally up to the thigh. A&P Assessment and plan (1) Atrial fibrillation: Rate controlled continue anticoagulation Status: Acute Qualifiers: Atrial fibrillation type: persistent (not longstanding) Qualified Code(s): I48.19 - Other persistent atrial fibrillation (2) Hypokalemia: Continue replenishing potassium through IV slow 10 mEq/h and from p.o. Status: Acute (3) Anemia: Would like to rule out GI bleed through stool guaiac Status: Acute Qualifiers: Anemia type: unspecified type Qualified Code(s): D64.9 - Anemia, unspecified (4) CAD in [place] artery: Stable from a coronary disease perspective. Status: Acute (5) Pacemaker: Appeared to be working in good condition. Status: Acute (6) PVD (peripheral vascular disease): Stable Status: Acute (7) Systolic congestive heart failure with reduced left ventricular function, NYHA class 4: Patient is clear-cut in systolic decompensated heart failure, continue IV diuresis with 80 mg IV twice daily Lasix with replenishment of potassium. Will check magnesium. If required will add metolazone. I think patient at some point need SENIOR PRIVATE CLIENT ADVISOR-D, once diuresed well and euvolemic we will add Entresto before discharge. Status: Acute Consult Attestations Medical Necessity Statement: Patient require continuation hospitalization for above defined care. Coding Level of Care Code New Pt Acute Dishwashing Machine Repairer for Ruma Conley Patient Type New History Comprehensive Exam Comprehensive Medical Decision Making Moderate Complexity Diagnoses Atrial fibrillation I48.19 Atrial fibrillation type: persistent (not longstanding) Hypokalemia E87.6 Anemia D64.9 Anemia type: unspecified type CAD in [place] artery I25.10 Pacemaker Z95.0 PVD (peripheral vascular disease) I73.9 Systolic congestive heart failure with reduced left ventricular function, NYHA class 4 I50.20
[2020-04-11 14:00] LABS: Anion Gap 12.4 (5-19); Blood Urea Nitrogen 12 mg/dL (8-23); Calcium 8.5 mg/dL (8.5-10.5); Carbon Dioxide 29 mmol/L (22-29); Chloride 96 mmol/L (98-107); Glomerular Filtration Rate 85.8 mL/min (90-130); Glucose 132 mg/dL (65-115); Magnesium 1.8 mg/dL (1.7-2.3); Osmolality Calculated 280 mOsm/kg (285-295); Potassium 3.4 mmol/L (3.5-5.1); Sodium 134 mmol/L (136-145)
[2020-04-11] MEDS: spironolactone 25 mg Tablet PO (14:58)
--- NOTE | 2020-04-11 18:08 | PC.NURSE ---
dressing reapplied to right lower leg
--- NOTE | 2020-04-11 20:06 | PC.NURSE ---
Patient states that he really wants a cigarette. Patient was educated on our smoking policy and verbalized understanding. Patient refused nicotine patch.
[2020-04-11 20:07] LABS: Alanine Aminotransferase 11 U/L (0-41); Albumin Level 3.2 g/dL (3.5-5.2); Alkaline Phosphatase 190 IU/L (40-130); Anion Gap 14.6 (5-19); Aspartate Amino Transferase 27 U/L (0-40); Blood Urea Nitrogen 12 mg/dL (8-23); Calcium 8.6 mg/dL (8.5-10.5); Carbon Dioxide 29 mmol/L (22-29); Chloride 97 mmol/L (98-107); Globulin 4.3 g/dL (1.3-4.6); Glucose 125 mg/dL (65-115); Osmolality Calculated 285 mOsm/kg (285-295); Potassium 3.6 mmol/L (3.5-5.1); Sodium 137 mmol/L (136-145); Total Bilirubin 1.9 mg/dL (0.15-1.2); Total Protein 7.5 g/dL (6.6-8.7)
[2020-04-11] MEDS: atorvastatin 40 mg Tablet PO (20:19)
[2020-04-11] MEDS: metoprolol succinate ER (24 HR) 25 mg Tablet 50 MG PO (20:20)
[2020-04-11 20:22] LABS: Basophils # 0.1 10^3/uL (0.0-0.1); Basophils % 0.9 %; Eosinophils # 0.3 10^3/uL (0.0-0.8); Eosinophils % 3.1 %; Hematocrit 31.2 % (42.0-52.0); Lymphocytes # 2.1 10^3/uL (0.8-4.8); Lymphocytes % 26.2 %; Mean Corpuscular HGB Conc 28.8 g/dL (30.0-36.0); Mean Corpuscular Hemoglobin 23.8 pg (28.0-34.0); Mean Corpuscular Volume 82.5 fL (80-94); Monocytes # 0.9 10^3/uL (0.2-0.9); Monocytes % 11.6 %; Neutrophils # 4.61 10^3/uL (1.8-7.7); Neutrophils % 57.7 %; Nucleated Red Blood Cells % 0 %; Platelet Count 207 10^3/cmm (130-400); Red Blood Count 3.78 10^6/uL (4.1-5.3); Red Cell Distribution Width 21.3 % (12.1-15.1)
[2020-04-12] VITALS (12 sets, daily range): BP systolic 99–127; BP diastolic 56–85; PULSE 58–72; RESP 13–24; TEMP 36.3–36.8; O2SAT 94–98
--- NOTE | 2020-04-12 01:00 | PC.NURSE ---
Dressing to right lower leg changed per patient request. Dressing was NOT saturated.
--- NOTE | 2020-04-12 02:31 | PC.NURSE ---
Patient has been educated to use his urinal to void in order for accurate measurement, but has been using the toilet.
--- NOTE | 2020-04-12 03:12 | PC.NURSE ---
Patient is currently resting with eyes closed. Will monitor.
[2020-04-12 05:15] LABS: Alanine Aminotransferase 11 U/L (0-41); Albumin Level 3.2 g/dL (3.5-5.2); Alkaline Phosphatase 187 IU/L (40-130); Anion Gap 13.4 (5-19); Aspartate Amino Transferase 25 U/L (0-40); Blood Urea Nitrogen 13 mg/dL (8-23); Calcium 8.5 mg/dL (8.5-10.5); Carbon Dioxide 29 mmol/L (22-29); Chloride 97 mmol/L (98-107); Globulin 4.2 g/dL (1.3-4.6); Glomerular Filtration Rate 68.1 mL/min (90-130); Glucose 108 mg/dL (65-115); Osmolality Calculated 283 mOsm/kg (285-295); Potassium 3.4 mmol/L (3.5-5.1); Sodium 136 mmol/L (136-145); Total Bilirubin 1.9 mg/dL (0.15-1.2); Total Protein 7.4 g/dL (6.6-8.7)
[2020-04-12 05:16] LABS: Basophils # 0.1 10^3/uL (0.0-0.1); Basophils % 1.2 %; Eosinophils # 0.3 10^3/uL (0.0-0.8); Eosinophils % 3.6 %; Hematocrit 31.3 % (42.0-52.0); Lymphocytes # 2.3 10^3/uL (0.8-4.8); Lymphocytes % 27.5 %; Mean Corpuscular HGB Conc 28.8 g/dL (30.0-36.0); Mean Corpuscular Hemoglobin 23.8 pg (28.0-34.0); Mean Corpuscular Volume 82.8 fL (80-94); Mean Platelet Volume 10.4 fL (7.4-10.4); Monocytes # 0.9 10^3/uL (0.2-0.9); Monocytes % 10.9 %; Neutrophils # 4.78 10^3/uL (1.8-7.7); Neutrophils % 56.4 %; Nucleated Red Blood Cells % 0.2 %; Platelet Count 234 10^3/cmm (130-400); Red Blood Count 3.78 10^6/uL (4.1-5.3); Red Cell Distribution Width 21.3 % (12.1-15.1); White Blood Count 8.5 10^3/uL (4.0-10.0)
[2020-04-12] MEDS: warfarin 2 mg Tablet PO ×2 (08:15→15:18)
[2020-04-12] MEDS: aspirin 81 mg EC Tablet PO (08:15)
[2020-04-12] MEDS: potassium chloride ER 20 mEq Tablet 40 MEQ PO (08:15)
[2020-04-12] MEDS: amiodarone 200 mg Tablet 100 MG PO (08:16)
[2020-04-12] MEDS: levothyroxine 50 mcg Tablet 25 MCG PO (08:17)
[2020-04-12] MEDS: FUROsemide 10 mg/mL SDV 10mL 80 MG IVP ×2 (08:17→19:58)
--- NOTE | 2020-04-12 09:10 | PC.NURSE ---
I asked the patient to use the urinal so we can monitor urine output and effectiveness of lasix. Patient states he cannot use the urinal, and refused to use bedside commode, Instead patient went to the restroom and used the toilet.
--- NOTE | 2020-04-12 10:04 | PC.RESP ---
Smoking Cessation and Pulmonary Rehab information sent to patient.
--- NOTE | 2020-04-12 12:25 | P.PN_ITS ---
Subjective Subjective: Interval history: Patien continued to note significant LE edema with respiratory distress. Denied chest pain. No fever, chills, nausea or vomiting. Medications: Reviewed: Yes Vitals/I&O/Wt Last Vital Signs Temp 97.4 F L 04/12/20 14:46 Pulse 72 04/12/20 14:46 Resp 19 H 04/12/20 14:46 BP 121/81 04/12/20 14:46 Pulse Ox 94 04/12/20 14:46 04/12/20 04/12/20 04/12/20 06:59 14:59 22:59 Intake Total 500 / 1529 1280 / 1280 240 / 1520 Output Total 100 / 1400 300 / 300 Balance 400 / 129 980 / 980 240 / 1220 Weight last 48 hrs Weight 138.935 kg Weight 139.162 kg Weight 139.57 kg Data : 04/12/20 03:35 04/12/20 03:35 A&P Assessment and plan (1) Hypoxemic respiratory failure, chronic: Continue to wean oxygen as tolerated Etiology multifactorial however primary problems if likely fluid overload Diuresiss as noted below Replace K as needed Repeat BMP in AM Montior daily weight Will arrange for outpatient pulmonary follow up. Home o2 eval in AM Status: Acute (2) Hypokalemia: As noted above Status: Acute (3) Atrial fibrillation: Currently rate controlled - Metoprolol 50mg XL daily - Amidarone 100 mg PO daily On coumadin however will d/c 2 mg TID dosing. Change to pharmacy to dose INR theraputic. Repeat INR in AM Status: Acute Qualifiers: Atrial fibrillation type: persistent (not longstanding) Qualified Code(s): I48.19 - Other persistent atrial fibrillation (4) CAD in [place] artery: Aspirin beta-krista statin Status: Acute (5) CHF (congestive heart failure): Acute on chronic systolic HF with cor pulmonale Plan: ECHO - EF 40 percent, RV pressure overload Moderate pulmonary hypertension Rvsp 43.5 mmhg Mild mitral regurgitation Continue Lasix 80 mg IV Q12hr Kdur 20 MEQ po daily Status: Chronic Qualifiers: Heart failure chronicity: acute on chronic Heart failure type: diastolic Qualified Code(s): I50.33 - Acute on chronic diastolic (congestive) heart failure Additional A&P Information DVT: warfarin Attestations Medical Necessity Statement*: Will will require additional day in hospital for continuation of IV lasix, wean oxygen and optimization of cardiac medications. Time Spent in Patient Care: Greater than 35 minutes (>than 50% of time spent in counselling and/or direct pt care on unit) . Coding Level of Care Code Acute Commercial Real Estate Sales Manager for Ruma Conley Diagnoses Hypoxemic respiratory failure, chronic J96.11 Hypokalemia E87.6 Atrial fibrillation I48.19 Atrial fibrillation type: persistent (not longstanding) CAD in [place] artery I25.10 CHF (congestive heart failure) I50.33 Heart failure chronicity: acute on chronic Heart failure type: diastolic
--- NOTE | 2020-04-12 12:33 | PM.PN ---
Subjective Subjective: Interval history: Continues to diurese well patient is not dumping urine in the washroom therefore cannot assess. Advised to please call nurse and let her know by urinating in the urinal to quantify the amount Medications: Reviewed: Yes Vitals/I&O/Wt Last Vital Signs Temp 98.2 F 04/12/20 10:42 Pulse 67 04/12/20 10:42 Resp 20 H 04/12/20 10:42 BP 125/56 04/12/20 10:42 Pulse Ox 94 04/12/20 10:42 04/11/20 04/12/20 04/12/20 22:59 06:59 14:59 Intake Total 240 / 1029 500 / 1529 620 / 620 Output Total 950 / 1300 100 / 1400 100 / 100 Balance -710 / -271 400 / 129 520 / 520 Weight last 48 hrs Weight 306 lb 4.8 oz Weight 306 lb 12.8 oz Weight 307 lb 11.2 oz Weight 300 lb Physical Exam Narrative: EXAM NARRATIVE: GENERAL: Patient is alert, awake and oriented x3. NECK: No jugular vein distension. HEENT: No cyanosis. No icterus. No pallor. HEART: Regular S1 and S2. No murmur, rub or gallop. LUNGS: Bilateral basal to mid crackles ABDOMEN: Soft, nontender and distended with abdominal wall edema CENTRAL NERVOUS SYSTEM: Grossly nonfocal. EXTREMITIES: Lower extremities 2+ edema bilaterally up to the thigh. Data : 04/12/20 03:35 04/12/20 03:35 A&P Assessment and plan (1) Atrial fibrillation: Rate controlled continue anticoagulation Status: Acute Qualifiers: Atrial fibrillation type: persistent (not longstanding) Qualified Code(s): I48.19 - Other persistent atrial fibrillation (2) Hypokalemia: Improved now 3.4 continue to replenish Status: Acute (3) Anemia: Stool for guaiac Status: Acute Qualifiers: Anemia type: unspecified type Qualified Code(s): D64.9 - Anemia, unspecified (4) CAD in [place] artery: Stable from a coronary disease perspective. Status: Acute (5) Pacemaker: Appeared to be working in good condition. Status: Acute (6) PVD (peripheral vascular disease): Stable Status: Acute (7) Systolic congestive heart failure with reduced left ventricular function, NYHA class 4: Continue IV diuresis with Lasix 80 mg twice daily continue replenish potassium chloride to 40 meq twice daily, patient has congestive heart failure both right and left hopefully with improvement of left side heart failure right-sided heart failure will also improve. Will consider adding Entresto once euvolemic and JOB DEVELOPMENT SPECIALIST-D latter. Status: Acute Attestations Medical Necessity Statement*: Patient require continuation hospitalization for above defined care. Coding Level of Care Code Established Pt Acute Mill Operator Head for Chg Fwd Patient Type Established History Detailed Exam Detailed Medical Decision Making Moderate Complexity Diagnoses Atrial fibrillation I48.19 Atrial fibrillation type: persistent (not longstanding) Hypokalemia E87.6 Anemia D64.9 Anemia type: unspecified type CAD in [place] artery I25.10 Pacemaker Z95.0 PVD (peripheral vascular disease) I73.9 Systolic congestive heart failure with reduced left ventricular function, NYHA class 4 I50.20
[2020-04-12] MEDS: spironolactone 25 mg Tablet PO (15:18)
[2020-04-12] MEDS: metoprolol succinate ER (24 HR) 25 mg Tablet 50 MG PO (19:58)
[2020-04-12] MEDS: atorvastatin 40 mg Tablet PO (19:58)
--- NOTE | 2020-04-12 21:34 | PC.NURSE ---
Initial shift note. Patient is found to be resting comfortably in no acute distress with not complaints.
--- NOTE | 2020-04-12 23:37 | PC.NURSE ---
Patient spilled part of his urinal. Unable to accurately measure.
[2020-04-13] VITALS (16 sets, daily range): BP systolic 100–119; BP diastolic 63–78; PULSE 61–78; RESP 14–24; TEMP 36.3–36.8; O2SAT 90–97
[2020-04-13 04:05] LABS: Basophils # 0.1 10^3/uL (0.0-0.1); Basophils % 1.1 %; Eosinophils # 0.4 10^3/uL (0.0-0.8); Eosinophils % 4.3 %; Hematocrit 31.9 % (42.0-52.0); Hemoglobin 9.2 g/dL (11.7-16.6); Lymphocytes # 2.3 10^3/uL (0.8-4.8); Lymphocytes % 27.2 %; Mean Corpuscular HGB Conc 28.8 g/dL (30.0-36.0); Mean Corpuscular Volume 83.1 fL (80-94); Monocytes # 1.1 10^3/uL (0.2-0.9); Monocytes % 12.4 %; Neutrophils # 4.67 10^3/uL (1.8-7.7); Neutrophils % 54.8 %; Nucleated Red Blood Cells % 0.2 %; Platelet Count 228 10^3/cmm (130-400); Red Blood Count 3.84 10^6/uL (4.1-5.3); Red Cell Distribution Width 21.8 % (12.1-15.1); White Blood Count 8.5 10^3/uL (4.0-10.0)
[2020-04-13 04:17] LABS: INR 3.25 (0.8-1.2)
[2020-04-13 04:42] LABS: Alanine Aminotransferase 12 U/L (0-41); Albumin Level 3.4 g/dL (3.5-5.2); Alkaline Phosphatase 186 IU/L (40-130); Aspartate Amino Transferase 26 U/L (0-40); Blood Urea Nitrogen 16 mg/dL (8-23); Calcium 8.5 mg/dL (8.5-10.5); Carbon Dioxide 27 mmol/L (22-29); Chloride 96 mmol/L (98-107); Globulin 4.1 g/dL (1.3-4.6); Glucose 110 mg/dL (65-115); Osmolality Calculated 282 mOsm/kg (285-295); Sodium 135 mmol/L (136-145); Total Bilirubin 1.7 mg/dL (0.15-1.2); Total Protein 7.5 g/dL (6.6-8.7)
[2020-04-13 05:30] LABS: Anion Gap 15.7 (5-19); Potassium 3.7 mmol/L (3.5-5.1)
--- NOTE | 2020-04-13 06:30 | PC.NURSE ---
Patient rested well through the night with no significant acute changes noted. Pt utilized his c-pap through the night
[2020-04-13] MEDS: FUROsemide 10 mg/mL SDV 10mL 80 MG IVP ×2 (08:53→19:13)
[2020-04-13] MEDS: amiodarone 200 mg Tablet 100 MG PO (08:53)
[2020-04-13] MEDS: levothyroxine 50 mcg Tablet 25 MCG PO (08:53)
[2020-04-13] MEDS: potassium chloride ER 20 mEq Tablet 40 MEQ PO ×2 (08:54→19:13)
[2020-04-13] MEDS: aspirin 81 mg EC Tablet PO (08:54)
[2020-04-13] MEDS: ipratropium-albuterol 3 mL Neb INHALATION (09:30)
--- NOTE | 2020-04-13 12:48 | PM.PN ---
Subjective Subjective: Interval history: Patient has not diuresed well his last 24 hours he was more positive. He still is in decompensated state of heart failure. Medications: Reviewed: Yes Vitals/I&O/Wt Last Vital Signs Temp 97.3 F L 04/13/20 10:38 Pulse 68 04/13/20 10:38 Resp 21 H 04/13/20 10:38 BP 105/63 04/13/20 10:38 Pulse Ox 93 04/13/20 10:38 04/12/20 04/13/20 04/13/20 22:59 06:59 14:59 Intake Total 240 / 1520 500 / 2020 760 / 760 Output Total 0 / 300 500 / 800 400 / 400 Balance 240 / 1220 0 / 1220 360 / 360 Weight last 48 hrs Weight 306 lb 6.4 oz Weight 306 lb 4.8 oz Physical Exam Narrative: EXAM NARRATIVE: GENERAL: Patient is alert, awake and oriented x3. NECK: No jugular vein distension. HEENT: No cyanosis. No icterus. No pallor. HEART: Regular S1 and S2. No murmur, rub or gallop. LUNGS: Bilateral basal to mid crackles ABDOMEN: Soft, nontender and distended with abdominal wall edema CENTRAL NERVOUS SYSTEM: Grossly nonfocal. EXTREMITIES: Lower extremities 2+ edema bilaterally up to the thigh. Data : 04/13/20 03:20 04/13/20 03:20 A&P Assessment and plan (1) Atrial fibrillation: Rate controlled continue anticoagulation Status: Acute Qualifiers: Atrial fibrillation type: persistent (not longstanding) Qualified Code(s): I48.19 - Other persistent atrial fibrillation (2) Hypokalemia: Improved. Status: Acute (3) Anemia: Continue to monitor Status: Acute Qualifiers: Anemia type: unspecified type Qualified Code(s): D64.9 - Anemia, unspecified (4) CAD in [place] artery: Stable from a coronary disease perspective. Status: Acute (5) Pacemaker: Appeared to be working in good condition. Status: Acute (6) PVD (peripheral vascular disease): Stable Status: Acute (7) Systolic congestive heart failure with reduced left ventricular function, NYHA class 4: I will add metolazone to the regimen 2.5 mg twice daily on top of IV Lasix 80 mg twice a day. Continue to replenish potassium. Status: Acute Attestations Medical Necessity Statement*: Patient require continuation of hospitalization for above defined care. Coding Level of Care Code Established Pt Acute Manager Mac for Ruma Conley Patient Type Established History Detailed Exam Detailed Medical Decision Making Moderate Complexity Diagnoses Atrial fibrillation I48.19 Atrial fibrillation type: persistent (not longstanding) Hypokalemia E87.6 Anemia D64.9 Anemia type: unspecified type CAD in [place] artery I25.10 Pacemaker Z95.0 PVD (peripheral vascular disease) I73.9 Systolic congestive heart failure with reduced left ventricular function, NYHA class 4 I50.20
--- NOTE | 2020-04-13 13:15 | DCPLANNER ---
IMM completed on 04/13/2020 @ 8085. Copy of rights given to pt.
[2020-04-13] MEDS: metOLazone 5 MG Tablet 2.5 MG PO ×2 (13:41→17:20)
[2020-04-13] MEDS: spironolactone 25 mg Tablet PO (13:42)
--- NOTE | 2020-04-13 14:17 | PM.PN ---
Subjective Subjective: Interval history: Patient was requiring up to 4L of O2 via [place]. Continued to have significant edema. NO fever, chill, nausea or vomiting. No chest pain. Medications: Reviewed: Yes Vitals/I&O/Wt Last Vital Signs Temp 97.3 F L 04/13/20 10:38 Pulse 68 04/13/20 10:38 Resp 21 H 04/13/20 10:38 BP 105/63 04/13/20 10:38 Pulse Ox 93 04/13/20 10:38 04/12/20 04/13/20 04/13/20 22:59 06:59 14:59 Intake Total 240 / 1520 500 / 2020 1000 / 1000 Output Total 0 / 300 500 / 800 900 / 900 Balance 240 / 1220 0 / 1220 100 / 100 Weight last 48 hrs Weight 138.981 kg Weight 138.935 kg Physical Exam Narrative: EXAM NARRATIVE: General : Alert, awake oriented x 3 on 4L of o2 via NC HEENT : Grossly unremarkable CVS: normal rate CHEST : Non-labored respiration ABD : Non-distended Ext : 3+ Bilateral edema Data : 04/13/20 03:20 04/13/20 03:20 A&P Assessment and plan (1) Hypoxemic respiratory failure, chronic: Continue to wean oxygen as tolerated Etiology multifactorial however primary problems if likely fluid overload Dieresis as noted below Replace K as needed Repeat BMP in AM Monitor daily weight Will arrange for outpatient pulmonary follow up. Home o2 eval prior to discharge Obtain chest x-ray 2view in am Wean oxygen to 2L currenlty on 4L via nc Status: Acute (2) Hypokalemia: K 3.7 today Status: Acute (3) Atrial fibrillation: Currently rate controlled - Metoprolol 50mg XL daily - Amiodarone 100 mg PO daily On coumadin pharmacy to dose INR theraputic. Repeat INR in AM Status: Acute Qualifiers: Atrial fibrillation type: persistent (not longstanding) Qualified Code(s): I48.19 - Other persistent atrial fibrillation (4) CAD in [place] artery: Aspirin beta-krista statin Status: Acute (5) CHF (congestive heart failure): Acute on chronic systolic HF with cor pulmonale Plan: ECHO - EF 40 percent, RV pressure overload Moderate pulmonary hypertension Rvsp 43.5 mmhg Mild mitral regurgitation Continue Lasix 80 mg IV Q12hr Kdur 20 MEQ po daily Discussd with cardiology- Will require additional 1-2 days of IV prior to transitioning to PO MOnitor daily weight Status: Chronic Qualifiers: Heart failure chronicity: acute on chronic Heart failure type: diastolic Qualified Code(s): I50.33 - Acute on chronic diastolic (congestive) heart failure Additional A&P Information DVT: warfarin Disposition: Anticipate discharge in 1-2 days once cleared by cardiology Attestations Medical Necessity Statement*: Patient will require further hospitalization for management of fluid overload requiring IV lasix. Time Spent in Patient Care: Greater than 35 minutes (>than 50% of time spent in counselling and/or direct pt care on unit). Coding Level of Care Code Acute Museum Security Chief for Ruma Fwd Diagnoses Hypoxemic respiratory failure, chronic J96.11 Hypokalemia E87.6 Atrial fibrillation I48.19 Atrial fibrillation type: persistent (not longstanding) CAD in [place] artery I25.10 CHF (congestive heart failure) I50.33 Heart failure chronicity: acute on chronic Heart failure type: diastolic
--- NOTE | 2020-04-13 14:20 | PC.NURSE ---
Reported patient output and intake aty this time new instruction given to place a fluid restriction of 1200 ml in 24 hours and give 40 MEQ of potassium at 2100 and start q12h in the morning.
[2020-04-13] MEDS: metoprolol succinate ER (24 HR) 25 mg Tablet 50 MG PO (19:12)
[2020-04-13] MEDS: atorvastatin 40 mg Tablet PO (19:12)
[2020-04-14] VITALS (8 sets, daily range): BP systolic 98–118; BP diastolic 64–74; PULSE 61–68; RESP 14–23; TEMP 35.9–36.6; O2SAT 90–98
[2020-04-14 03:48] LABS: Basophils # 0.1 10^3/uL (0.0-0.1); Basophils % 1.2 %; Eosinophils # 0.4 10^3/uL (0.0-0.8); Hematocrit 31.2 % (42.0-52.0); Hemoglobin 9.2 g/dL (11.7-16.6); Lymphocytes # 2.4 10^3/uL (0.8-4.8); Lymphocytes % 26.7 %; Mean Corpuscular HGB Conc 29.5 g/dL (30.0-36.0); Mean Corpuscular Hemoglobin 24.3 pg (28.0-34.0); Mean Corpuscular Volume 82.3 fL (80-94); Mean Platelet Volume 9.8 fL (7.4-10.4); Monocytes # 1.1 10^3/uL (0.2-0.9); Monocytes % 12.3 %; Neutrophils # 4.95 10^3/uL (1.8-7.7); Neutrophils % 55.5 %; Nucleated Red Blood Cells % 0.2 %; Platelet Count 237 10^3/cmm (130-400); Red Blood Count 3.79 10^6/uL (4.1-5.3); Red Cell Distribution Width 21.5 % (12.1-15.1); White Blood Count 8.9 10^3/uL (4.0-10.0)
--- NOTE | 2020-04-14 03:57 | PC.NURSE ---
NURSING NOTE: SHIFT SUMMARY: PT ALERT AND ORIENTED X4; MOVES ALL EXTREMITIES AND FOLLOWS ALL COMMANDS. DENIES PAIN THIS SHIFT. CPAP ON. ALL VS AND ASSESSMENTS CHARTED. NO DISTRESS NOTED.
[2020-04-14 04:05] LABS: INR 2.78 (0.8-1.2)
[2020-04-14 04:16] LABS: Alanine Aminotransferase 13 U/L (0-41); Albumin Level 3.3 g/dL (3.5-5.2); Alkaline Phosphatase 186 IU/L (40-130); Anion Gap 14.6 (5-19); Aspartate Amino Transferase 26 U/L (0-40); Blood Urea Nitrogen 19 mg/dL (8-23); Calcium 8.9 mg/dL (8.5-10.5); Carbon Dioxide 28 mmol/L (22-29); Chloride 93 mmol/L (98-107); Globulin 4.4 g/dL (1.3-4.6); Glomerular Filtration Rate 61.6 mL/min (90-130); Glucose 110 mg/dL (65-115); Osmolality Calculated 277 mOsm/kg (285-295); Potassium 3.6 mmol/L (3.5-5.1); Sodium 132 mmol/L (136-145); Total Bilirubin 1.8 mg/dL (0.15-1.2); Total Protein 7.7 g/dL (6.6-8.7)
[2020-04-14] MEDS: FUROsemide 10 mg/mL SDV 10mL 80 MG IVP (09:00)
[2020-04-14] MEDS: amiodarone 200 mg Tablet 100 MG PO (09:01)
[2020-04-14] MEDS: aspirin 81 mg EC Tablet PO (09:01)
[2020-04-14] MEDS: metOLazone 5 MG Tablet 2.5 MG PO (09:01)
[2020-04-14] MEDS: levothyroxine 50 mcg Tablet 25 MCG PO (09:01)
[2020-04-14] MEDS: potassium chloride ER 20 mEq Tablet 40 MEQ PO (09:04)
--- NOTE | 2020-04-14 12:19 | P.DS_ITS ---
Discharge Providers Date of Admission: 04/10/20 20:37 Date of Discharge: April 14, 2020 Attending Provider at Admission: Charles Delgado MD Attending Provider at Discharge: Julian Lindquist Primary Care Provider: Ahmet Jasso MD Diagnoses at Discharge Discharge Diagnosis (1) Hypoxemic respiratory failure, chronic: Status: Acute (2) Hypokalemia: Status: Acute (3) Atrial fibrillation: Status: Acute Qualifiers: Atrial fibrillation type: persistent (not longstanding) Qualified Code(s): I48.19 - Other persistent atrial fibrillation (4) CAD in [place] artery: Status: Acute (5) CHF (congestive heart failure): Status: Chronic Qualifiers: Heart failure chronicity: acute on chronic Heart failure type: diastolic Qualified Code(s): I50.33 - Acute on chronic diastolic (congestive) h eart failure Reason for Visit Reason for Visit: BILAT LOWER EXT SWELLING Hospital Course Hospital Course 59 year old male with a past medical history of hypertension, coronary artery disease, HFReF and interstitial lung disease on 2 L home oxygen was admitted for progressively worsening bilateral lower extremity swelling as well as worsening shortness of breath.Patient reported that he has been worsening dyspnea over the past week with increasing LE swelling. He is also complaining of orthopnea as well as PND. X-ray chest: Increased pulmonary vascular congestion, and bilateral interstitial infiltrate, consistent with CHF. Lower extremity Doppler vein bilateral: No DVT. Upon admission patient was started on Lasix 80 mg IV Q12hr as he was suspected to be in decompensated heart failure. He was seen by cardiology. Continued on supplemental oxygen. Metalazone 2.5 mg Po daily was added to regimen on 04/13. ECHO performed showed EF to 40% with increase in Right heart failure suggestive of cor pulmonale. Continued on amiodarone 100 mg po daily in addition to metoprolol 50 mg XL daily and Coumadin. INR was therapeutic. Outpatient couamdin management was discussed. He noted improvement and was requesting to be discharge on 04/14 which was cleared by Cardiology. He was discharged on Lasix 80 mg PO BID in addition to metalazone. Advised to monitor daily weight and return to ER if any worsening in respiratory status. Physical Exam Narrative: EXAM NARRATIVE: General : Alert, awake oriented x 3 on 4L of o2 via NC HEENT : Grossly unremarkable CVS: normal rate CHEST : Non-labored respiration ABD : Non-distended Ext : 3+ Bilateral edema Discharge Data Data Completed and Pending: Completed Studies During Hospitalization Category Date Time Status XR chest 1V ramone ble [id number] Stat Exams 04/10/20 15:54 Completed CV echo complete* [id number] Routine Ultrasound 04/11/20 11:16 [place] [id number] Urgent Ultrasound 04/10/20 15:53 Completed Pending at discharge Category Date Time Status Complete Blood Co unt w/Auto AM LABS Lab 04/15/20 04:00 Ordered Comprehensive Met abolic Panel AM LA BS Lab 04/15/20 04:00 Ordered Prothrombin Time INR AM LABS Lab 04/15/20 04:00 Ordered Labs from last 24 hours 04/14/20 04/14/20 04/14/20 03:10 03:10 03:10 WBC 8.9 RBC 3.79 L Hgb 9.2 L Hct 31.2 L MCV 82.3 MCH 24.3 L MCHC 29.5 L RDW 21.5 H Plt Count 237 MPV 9.8 Neut % (Auto) 55.5 Lymph % (Auto) 26.7 [place] % (Auto) 12.3 Eos % (Auto) 4.0 Baso % (Auto) 1.2 Neut # (Auto) 4.95 Lymph # (Auto) 2.4 [place] # (Auto) 1.1 H Eos # (Auto) 0.4 Baso # (Auto) 0.1 Nucleated RBC % (a uto) 0.2 Nucleated RBCs # 0.0 PT 30.40 H INR 2.78 H Sodium 132 L Potassium 3.6 Chloride 93 L Carbon Dioxide 28 Anion Gap 14.6 BUN 19 Creatinine 1.2 GFR Calculation 61.6 L Glucose 110 Calculated Osmolal ity 277 L Calcium 8.9 Total Bilirubin 1.8 H AST 26 ALT 13 Alkaline Phosphata se 186 H Total Protein 7.7 Albumin 3.3 L Globulin 4.4 Vitals: Last Vital Signs Temp 97.6 F 04/14/20 10:50 Pulse 65 04/14/20 10:50 Resp 23 H 04/14/20 10:50 BP 110/64 04/14/20 10:50 Pulse Ox 96 04/14/20 10:50 Discharge Plan Discharge Patient Disposition: Home Condition: Stable Prescriptions: New Lasix 80 mg tablet 80 mg PO BID Qty: 60 RF: 4 potassium chloride 20 mEq tablet extended release 20 meq PO TID Qty: 90 RF: 4 Continued nitroglycerin [Nitrostat] 0.4 mg tablet, sublingual 0.4 mg SUBLINGUAL Q5M PRN (Reason: Chest Pain) RF: 0 aspirin [Enteric Coated Aspirin] 81 mg tablet,delayed release (DR/EC) 81 mg PO DAILY@0900 RF: 0 albuterol sulfate 2.5 mg /3 mL (0.083 %) solution for nebulization 2.5 mg INHALATION Q4H PRN (Reason: shortness of breath ) RF: 0 (DME) Portable oxygen with concentrator See Rx Instructions .Route .MEDSUPPLY Qty: 1 RF: 0 amiodarone 200 mg tablet 100 mg PO DAILY@0900 RF: 0 metoprolol succinate 25 mg tablet extended release 24 hr 50 mg PO BEDTIME@2000 RF: 0 atorvastatin 40 mg tablet 40 mg PO BEDTIME@2000 RF: 0 spironolactone [Aldactone] 25 mg tablet 25 mg PO DAILY@1600 RF: 0 levothyroxine 50 mcg tablet 25 mcg PO DAILY@0900 RF: 0 warfarin 2 mg tablet See Rx Instructions .ROUTE .COMPLEX RF: 0 Changed metolazone 2.5 mg tablet 2.5 mg PO BID Qty: 60 RF: 0 Discontinued torsemide 100 mg tablet 100 mg PO DAILY Qty: 90 RF: 2 potassium chloride 20 mEq tablet extended release 10 meq PO DAILY PRN (Reason: swelling) RF: 0 furosemide 40 mg Tablet 40 mg PO DAILY RF: 0 Discharge Orders: Discharge Order (Routine); Ordered 04/14/20 Ordered By: Julian Lindquist Referrals: Ahmet Jasso MD [Primary Care Provider] - 1 week (You have a follow up a ppointment with Dr Jasso on April 22 at 2:15 pm. If you are unable to keep this appointment please call to reschedule. ) Yomi Amor MD [Physician] - 2 weeks (You have a follow up appointment with Dr Amor on April 21 at 4:15 pm. If you are unable to keep this appointment please call to reschedule. ) Discharge Diet: Cardiac and Low Salt Discharge Activity: Resume usual activity Patient Instructions: Metolazone (By mouth), Furosemide (By mouth), Potassium Chloride (By mouth), Coronary Artery Disease (DC), CHF Stoplight Discharge Attestations Time Spent in Discharge Care*: greater than 30 min Status at Discharge: Cognitive status at discharge: cognitively intact , Behavioral status at discharge: cooperative , Quality Metrics Clinical Quality Measures During this hospital stay, did patient experience: None Coding Level of Care Code Acute Account Maintenance Representative for Ruma Conley Diagnoses Hypoxemic respiratory failure, chronic J96.11 Hypokalemia E87.6 Atrial fibrillation I48.19 Atrial fibrillation type: persistent (not longstanding) CAD in [place] artery I25.10 CHF (congestive heart failure) I50.33 Heart failure chronicity: acute on chronic Heart failure type: diastolic
--- NOTE | 2020-04-14 13:03 | PC.NURSE ---
Patient discharge home at this time patient provided all discharge instructions as well as new medications and follow up appointments patient verbalized understanding of all instruction given. patient up to bathroom prior to discharge and took o2 off upon leaving bathroom. patient reported feeling dizzy. Patient asked to sit on the bed so that vitals could be checked. patient refused and set down in wheel chair. managed to place pules ox on patient o2 found to be 88% patient stated I dont care i am going home patient asked if brought portable o2 with her to take you home on. Patient stated I doubt it because of the mood she is in explained to patient the concerns of him going home with out his o2 patient verbalized understanding how ever stated i just want to get out of this place. patient taken to private vehicle by staff via wheel chair. patient alert oriented and had no outward s/s of SOB upon departure of hospital.
--- NOTE | 2020-04-15 12:45 | P.PN_ITS ---
Subjective Subjective: Interval history: Please note that this is note I forgot to put yesterday as we discharged the patient therefore this note should be for the date of 04/14/2020 Patient is feeling much better he would like to go home. He remains noncompliant with intake. He has been given heart failure education many time but his major problem is drinking more soda noncompliant with the food Medications: Reviewed: Yes Vitals/I&O/Wt Last Vital Signs Temp 97.6 F 04/14/20 12:23 Pulse 65 04/14/20 12:23 Resp 23 H 04/14/20 12:23 BP 110/64 04/14/20 12:23 Pulse Ox 96 04/14/20 12:23 Weight last 48 hrs Weight 305 lb Physical Exam Narrative: EXAM NARRATIVE: GENERAL: Patient is alert, awake and oriented x3. NECK: No jugular vein distension. HEENT: No cyanosis. No icterus. No pallor. HEART: Regular S1 and S2. No murmur, rub or gallop. LUNGS: Bilateral basal to mid crackles ABDOMEN: Soft, nontender and distended with abdominal wall edema CENTRAL NERVOUS SYSTEM: Grossly nonfocal. EXTREMITIES: Lower extremities 2+ edema bilaterally up to the thigh. Data : 04/14/20 03:10 04/14/20 03:10 A&P Assessment and plan (1) Atrial fibrillation: Rate is well controlled. Continue anticoagulation Status: Acute Qualifiers: Atrial fibrillation type: persistent (not longstanding) Qualified Code(s): I48.19 - Other persistent atrial fibrillation (2) Hypokalemia: It has improved after potassium chloride optimization Status: Acute (3) Anemia: Continue to monitor Status: Acute Qualifiers: Anemia type: unspecified type Qualified Code(s): D64.9 - Anemia, unspecified (4) CAD in [place] artery: Stable from a coronary disease perspective. Status: Acute (5) Pacemaker: Appeared to be working in good condition. Status: Acute (6) PVD (peripheral vascular disease): Stable Status: Acute (7) Systolic congestive heart failure with reduced left ventricular function, NYHA class 4: We will switch patient to 80 mg p.o. twice daily off diuretics and 2.5 mg of metolazone twice a day along with potassium chloride 40 mg twice a day. We will see him back in clinic in 7 days. Patient has been advised to compliant with the food he has given heart failure education Status: Acute Attestations Medical Necessity Statement*: Patient will be discharged home Coding Level of Care Code Established Pt Acute Spray Technician for [place] Patient Type Established History Detailed Exam Detailed Medical Decision Making Moderate Complexity Diagnoses Atrial fibrillation I48.19 Atrial fibrillation type: persistent (not longstanding) Hypokalemia E87.6 Anemia D64.9 Anemia type: unspecified type CAD in [place] artery I25.10 Pacemaker Z95.0 PVD (peripheral vascular disease) I73.9 Systolic congestive heart failure with reduced left ventricular function, NYHA class 4 I50.20
== END 2020-04-14 13:03 | disposition home or self-care (01) | DRG 292 ==
LOC: ER 18:38 → CSU 21:07
PROVIDERS: Internal Medicine; Nurse Practitioner Family; Admitting Provider Internal Medicine; Emergency Provider Family Medicine; PCP Internal Medicine; Visit Provider Hospitalist
DX: I11.0 Hypertensive heart disease with heart failure (principal); I48.19 Other persistent atrial fibrillation; J96.11 Chronic respiratory failure with hypoxia; J84.9 Interstitial pulmonary disease, unspecified; I50.23 Acute on chronic systolic (congestive) heart failure; I42.8 Other cardiomyopathies; I25.10 Atherosclerotic heart disease of native coronary artery without angina pectoris; E03.9 Hypothyroidism, unspecified; E87.6 Hypokalemia; D64.9 Anemia, unspecified; Z95.0 Presence of cardiac pacemaker; I73.9 Peripheral vascular disease, unspecified; Z79.82 Long term (current) use of aspirin; Z79.01 Long term (current) use of anticoagulants; Z99.81 Dependence on supplemental oxygen; Z86.73 Personal history of transient ischemic attack (TIA), and cerebral infarction without residual deficits; G47.33 Obstructive sleep apnea (adult) (pediatric); E78.5 Hyperlipidemia, unspecified; J43.1 Panlobular emphysema; F17.210 Nicotine dependence, cigarettes, uncomplicated
CPT/HCPCS: 12345; 36415; 71045; 80048; 80053; 83735; 83880; 84484; 85025; 85610; 85730; 93005; 93306; 93971; 94640; 94660; 96375; 99283; J1940; J2405; J3480

== ENCOUNTER → 2020-05-28 12:22 | Outpatient (BNVA) | payer MEDICARE, SELFPAY | PROVIDERS: PCP Internal Medicine; Visit Provider Internal Medicine Cardiovascular Disease | DX: I48.19 Other persistent atrial fibrillation (principal); I50.20 Unspecified systolic (congestive) heart failure | CPT/HCPCS: 80048; 83880; 85025 ==

== ENCOUNTER 2020-06-22 22:49 | Inpatient (IN) | payer MEDICARE, SELFPAY ==
--- NOTE | 2020-06-22 22:50 | ECG_ITS ---
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 Measurements Intervals [place] Rate: 78 P: [place]: QRS: -55 QRSD: 108 T: 131 QT: 389 QTc: 444 Interpretive Statements ATRIAL FIBRILLATION LOW QRS VOLTAGE IN PRECORDIAL LEADS [QRS DEFLECTION < 1.0 mV IN CHEST LEADS] LEFT ANTERIOR FASCICULAR BLOCK [QRS AXIS <= -45, QR IN I, RS IN II] MODERATE ST DEPRESSION [0.05+ mV ST DEPRESSION] ABNORMAL QRS-T ANGLE [QRS-T AXIS DIFFERENCE > 60] Compared to ECG 04/10/2020 21:47:42 Left anterior fascicular block now present ST (T wave) deviation now present Ventricular-paced complex(es) or rhythm no longer present Myocardial infarct finding no longer present Electronically Signed On 06-24-2020 16:52:09 PRODUCE TEAM LEAD by Bert Angela M.D. [id number]
--- NOTE | 2020-06-22 22:50 | XR_ITS ---
WS: [id number] PORTABLE CHEST HISTORY: Chest pain, acute onset. COMPARISON: 04/10/2020 Dual lead LEFT subclavian pacer. Mild diffuse interstitial thickening similar to the prior study. Consistent with edema and CHF. No de nse consolidations or pneumonia. No pleural effusion or pneumothorax. Cardiac size: Moderately enlarged cardiac silhouette. Mediastinum/Aorta: Normal mediastinum. No osseous abnormality seen. XR/XR chest 1V portable [id number] IMPRESSION: 1. Mild pulmonary edema versus CHF. 2. Moderate cardiomegaly.
--- NOTE | 2020-06-22 22:55 | W.ED.CHESTPA ---
HPI - Chest Pain General: Chief Complaint: Chest Pain Stated Complaint: CP Time Seen by Provider: 06/22/20 22:51 Source: patient and EMS Mode of arrival: EMS Limitations: no limitations History of Present Illness: HPI narrative: 59-year-old male who has a extensive cardiac history states he had a slight cough over the last day has had a sharp pain in the left side of the chest. He states its much worse with palpation and a cough. He denies any vomiting or diarrhea. Denies any shortness of breath. Denies any worsening improving factors. MD complaint: chest pain Associated symptoms: Deny abdominal pain, dyspnea, fever(s), nausea or vomiting Review of Systems Const: Denies: fever(s), chills, body aches or change in appetite Eyes: Denies: blurry vision or eye discomfort ENMT: Denies: throat pain or dental pain Card: Reports: chest pain Resp: Reports: non-productive cough; Denies: dyspnea GI: Denies: abdominal pain, nausea, vomiting or diarrhea : Denies: dysuria Musc: Denies: neck pain or back pain Skin/Breast: Denies: rash Neuro: Denies: headache(s) Psych: Denies: depression Lauir/Lymph: Denies: easy bruising All/Imm: Denies: urticaria PFSH ED PFSH: Medical History Anemia Atrial fibrillation CAD in [place] artery Cardiomyopathy CHF (congestive heart failure) CVA (cerebral vascular accident) HTN (hypertension) Hyperlipidemia Hypotension Hypothyroid Nicotine dependence, cigarettes, with unspecified nicotine-induced disorders Orthostasis SALONI (obstructive sleep apnea) Pacemaker 2014- dual chamber Panlobular emphysema Paroxysmal A-fib PVD (peripheral vascular disease) Vitamin B12 deficiency Surgical History H/O coronary angioplasty 2013 H/O reduction of closed fracture ankle History of cardiac radiofrequency ablation (RFA) 38937 Hx of appendectomy S/P appendectomy Status cardiac pacemaker Family History Father Myocardial infarct Mother Myocardial infarct Other Family history of premature coronary artery disease Hypertension Social History Smoking and tobacco status: current every day smoker cigarettes Packs smoked per day: 0.5 Years cigarettes smoked: 40 [ Other cigarette details: Hx of 1PPD x 40 Years ] Quit status (tobacco): has tried quititng Second hand smoke exposure: Yes Smoking risk assessment/counseling performed?: Yes Alcohol intake: former Year of sobriety/quit date alcohol: 1980 Lives independently: Yes Household members: spouse Marital status: Current occupational status: disabled History of recent travel: No Current gender identity: Male Physical Exam Const: COMMON NORMALS: no acute distress, patient oriented x3 and healthy appearing HENMT: COMMON NORMALS: normocephalic and atraumatic HEAD & SCALP: normocephalic and atraumatic Eye: COMMON NORMALS: Equal, round and reactive pupils present and EOMs intact bilaterally PUPIL: Yes Equal, round and reactive pupils present Neck/C-Spine: COMMON NORMALS: full ROM and supple Chest: COMMONS NORMALS: normal inspection of the chest OTHER: point tender in center of chest Resp: COMMON NORMALS: normal respiratory effort, No retractions, No use of accessory muscles and clear to auscultation bilaterally AUSCULTATION: clear to auscultation bilaterally Cardio: COMMON NORMALS: regular rate, regular rhythm and No murmurs present (Cardio) RATE: regular rate RHYTHM: regular rhythm GI: COMMON NORMALS: Normal to inspection, nondistended, normoactive bowel sounds present, Soft to palpation, non-tender and no masses PALPATION: Yes Soft to palpation Extremity: COMMON NORMALS: normal to inspection and full ROM NARRATIVE EXTREMITY EXAM: 2+edema Neuro: COMMON NORMALS: patient oriented x3, moves all extremities and no focal motor deficits Psych: COMMON NORMALS: mental status grossly normal, Normal thought process present and cooperative THOUGHT PROCESS: Normal thought process present Skin: COMMON NORMALS: no rashes or lesions noted and no wounds GENERAL SKIN EXAM: no rashes or lesions noted Course Vital Signs: Vital signs: Vital Signs Temperature 97.8 F 06/22/20 23:00 Pulse Rate 79 06/22/20 23:59 Respiratory Rate 18 06/22/20 23:59 Blood Pressure 117/77 06/22/20 23:59 Pulse Oximetry 97 06/22/20 23:59 MDM - Chest Pain MDM Narrative: Medical decision making narrative: Leroy presents with a non-ST elevation [place]. His second troponin is elevated. Patient has been pain-free here. Will give patient Lovenox I spoke to the hospitalist who will admit. Lab Data: Labs: Lab Results 06/22/20 06/22/20 06/22/20 Range/Units 23:00 23:00 23:00 WBC 9.1 (4.0-10.0) 10^3/ uL RBC 4.44 (4.1-5.3) 10^6/u L Hgb 10.4 L (11.7-16.6) g/dL Hct 36.3 L (42.0-52.0) % MCV 81.8 (80-94) fL MCH 23.4 L (28.0-34.0) pg MCHC 28.7 L (30.0-36.0) g/dL RDW 21.0 H (12.1-15.1) % Plt Count 259 (130-400) 10^3/c mm MPV 9.4 (7.4-10.4) fL Neut % (Auto) 62.7 % Lymph % (Auto) 21.5 % [place] % (Auto) 11.5 % Eos % (Auto) 2.9 % Baso % (Auto) 1.1 % Neut # (Auto) 5.70 (1.8-7.7) 10^3/u L Lymph # (Auto) 2.0 (0.8-4.8) 10^3/u L [place] # (Auto) 1.1 H (0.2-0.9) 10^3/u L Eos # (Auto) 0.3 (0.0-0.8) 10^3/u L Baso # (Auto) 0.1 (0.0-0.1) 10^3/u L Nucleated RBC % (a uto) 0 % Nucleated RBCs # 0.0 /100WBC PT 17.40 H (12.1-14.9) SECO NDS INR 1.38 H (0.8-1.2) Sodium 133 L (136-145) mmol/L Potassium 3.7 (3.5-5.1) mmol/L Chloride 94 L (98-107) mmol/L Carbon Dioxide 26 (22-29) mmol/L Anion Gap 16.7 (5-19) BUN 15 (8-23) mg/dL Creatinine 0.7 (0.7-1.2) mg/dL GFR Calculation 114.6 (90-130) mL/min Glucose 92 (65-115) mg/dL Calculated Osmolal ity 276 L (285-295) mOsm/k g Calcium 8.8 (8.5-10.5) mg/dL Total Bilirubin 1.8 H (0.15-1.2) mg/dL AST 31 (0-40) U/L ALT 17 (0-41) U/L Alkaline Phosphata se 232 H (40-130) IU/L Troponin T Baselin e (0-15) ng/L Troponin T 120 Min [place] (0-15) ng/L Delta Troponin T (0-10) ABS# Total Protein 8.4 (6.6-8.7) g/dL Albumin 3.4 L (3.5-5.2) g/dL Globulin 5.0 H (1.3-4.6) g/dL 06/22/20 06/23/20 Range/Units 23:00 00:44 WBC (4.0-10.0) 10^3/ uL RBC (4.1-5.3) 10^6/u L Hgb (11.7-16.6) g/dL Hct (42.0-52.0) % MCV (80-94) fL MCH (28.0-34.0) pg MCHC (30.0-36.0) g/dL RDW (12.1-15.1) % Plt Count (130-400) 10^3/c mm MPV (7.4-10.4) fL Neut % (Auto) % Lymph % (Auto) % [place] % (Auto) % Eos % (Auto) % Baso % (Auto) % Neut # (Auto) (1.8-7.7) 10^3/u L Lymph # (Auto) (0.8-4.8) 10^3/u L [place] # (Auto) (0.2-0.9) 10^3/u L Eos # (Auto) (0.0-0.8) 10^3/u L Baso # (Auto) (0.0-0.1) 10^3/u L Nucleated RBC % (a uto) % Nucleated RBCs # /100WBC PT (12.1-14.9) SECO NDS INR (0.8-1.2) Sodium (136-145) mmol/L Potassium (3.5-5.1) mmol/L Chloride (98-107) mmol/L Carbon Dioxide (22-29) mmol/L Anion Gap (5-19) BUN (8-23) mg/dL Creatinine (0.7-1.2) mg/dL GFR Calculation (90-130) mL/min Glucose (65-115) mg/dL Calculated Osmolal ity (285-295) mOsm/k g Calcium (8.5-10.5) mg/dL Total Bilirubin (0.15-1.2) mg/dL AST (0-40) U/L ALT (0-41) U/L Alkaline Phosphata se (40-130) IU/L Troponin T Baselin e 45 H (0-15) ng/L Troponin T 120 Min [place] 207.1 H (0-15) ng/L Delta Troponin T 162.1 H* (0-10) ABS# Total Protein (6.6-8.7) g/dL Albumin (3.5-5.2) g/dL Globulin (1.3-4.6) g/dL Imaging Data^: CXR: Attestation: I personally reviewed and interpreted this imaging study as follows: My impression: no acute abnormality EKG Data^: EKG 1: Attestation: I personally reviewed and interpreted this EKG as follows: EKG interpretation date: 06/22/20 EKG interpretation time: 22:56 Interpretation: afib hr [address] or t wave abnormalities qrs 108 qtc 422 EKG 2: Attestation: I personally reviewed and interpreted this EKG as follows: EKG interpretation date: 06/23/20 EKG interpretation time: 00:41 Interpretation: afib hr [address] r t wave abnormalities qrs 121 qtc 442 no change from previous Discharge Plan Discharge Patient Disposition: Admitted As Inpatient Clinical Impression: Non-ST elevation [place] (NSTEMI) Condition: Stable Coding Level of Care Code ED Hydrochloric Acid Operator for Chg Fwd Exam Comprehensive
[2020-06-22 23:00] VITALS: BP 115/57; PULSE 87; RESP 28; TEMP 36.6; O2SAT 100; BMI 39.0
[2020-06-22 23:05] VITALS: BP 115/57; PULSE 74; RESP 17; O2SAT 100
[2020-06-22 23:14] VITALS: RESP 18; O2SAT 98
[2020-06-22] MEDS: morphine 4 mg/mL SDV 1 mL IVP (23:14)
[2020-06-22 23:19] LABS: Basophils # 0.1 10^3/uL (0.0-0.1); Basophils % 1.1 %; Eosinophils # 0.3 10^3/uL (0.0-0.8); Eosinophils % 2.9 %; Hematocrit 36.3 % (42.0-52.0); Hemoglobin 10.4 g/dL (11.7-16.6); Lymphocytes % 21.5 %; Mean Corpuscular HGB Conc 28.7 g/dL (30.0-36.0); Mean Corpuscular Hemoglobin 23.4 pg (28.0-34.0); Mean Corpuscular Volume 81.8 fL (80-94); Mean Platelet Volume 9.4 fL (7.4-10.4); Monocytes # 1.1 10^3/uL (0.2-0.9); Monocytes % 11.5 %; Neutrophils % 62.7 %; Nucleated Red Blood Cells % 0 %; Platelet Count 259 10^3/cmm (130-400); Red Blood Count 4.44 10^6/uL (4.1-5.3); White Blood Count 9.1 10^3/uL (4.0-10.0)
[2020-06-22 23:38] LABS: Alanine Aminotransferase 17 U/L (0-41); Albumin Level 3.4 g/dL (3.5-5.2); Alkaline Phosphatase 232 IU/L (40-130); Anion Gap 16.7 (5-19); Aspartate Amino Transferase 31 U/L (0-40); Blood Urea Nitrogen 15 mg/dL (8-23); Calcium 8.8 mg/dL (8.5-10.5); Carbon Dioxide 26 mmol/L (22-29); Chloride 94 mmol/L (98-107); Creatinine Clr Calc Pharmacy 150.4486; Glomerular Filtration Rate 114.6 mL/min (90-130); Glucose 92 mg/dL (65-115); Osmolality Calculated 276 mOsm/kg (285-295); Potassium 3.7 mmol/L (3.5-5.1); Sodium 133 mmol/L (136-145); Total Bilirubin 1.8 mg/dL (0.15-1.2); Total Protein 8.4 g/dL (6.6-8.7)
[2020-06-22 23:39] LABS: INR 1.38 (0.8-1.2)
[2020-06-22 23:40] LABS: Troponin(5th) Baseline 45 ng/L (0-15)
[2020-06-22 23:59] VITALS: BP 117/77; PULSE 79; RESP 18; O2SAT 97
[2020-06-23] VITALS (27 sets, daily range): BP systolic 100–140; BP diastolic 57–101; PULSE 62–87; RESP 14–25; TEMP 36.5–36.8; O2SAT 91–98
--- NOTE | 2020-06-23 00:50 | ECG_ITS ---
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 Measurements Intervals [place] Rate: 72 P: [place]: QRS: 245 QRSD: 121 T: 98 QT: 418 QTc: 458 Interpretive Statements ELECTRONIC VENTRICULAR PACEMAKER -- RIGHT AXIS DEVIATION [QRS AXIS > 100] MODERATE INTRAVENTRICULAR CONDUCTION DELAY [110+ ms QRS DURATION] NONSPECIFIC ST & T-WAVE ABNORMALITY Compared to ECG 06/22/2020 22:56:41 Right-axis deviation now present Intraventricular conduction delay now present T-wave abnormality now present Atrial fibrillation no longer present Left anterior fascicular block no longer present ST (T wave) deviation no longer present Electronically Signed On 06-24-2020 16:42:51 RN CVICU by Bert Angela M.D. [id number]
[2020-06-23 01:19] LABS: Troponin 5 2HR 207.1 ng/L (0-15); Troponin 5 2HR Delta 162.1 ABS# (0-10)
[2020-06-23] MEDS: enoxaparin 100 mg/mL Syringe SUBCUT (01:29)
--- NOTE | 2020-06-23 02:15 | P.HP_ITS ---
Providers/Chief Complaint Primary Care Provider: Ahmet Jasso MD Chief Complaint: CP History of Present Illness Leroy Gautam is a 59 year old male who has history of coronary artery disease, systolic heart failure reduced action fraction 40%, cor pulmonale, 2 L home oxygen dependent, chronic A. fib, anticoagulation with Coumadin presented today with chief complaint of chest pain. Patient is stating that around 8 PM when he was watching television he started experiencing/excruciating chest pain which she describing as someone dropped something on his chest, he is describing this pain as sharp which is nonradiating, it is constant, gets worse on palpation, he did not experience vomiting, nausea, diaphoresis, syncope or strokelike symptoms. Currently smoking half a pack a day and uses CPAP at night and 2 L of oxygen in the day. Diagnostics in the ER revealed NSTEMI EKG revealing ventricular paced rhythm Significant delta troponin CBC shows stable hemoglobin INR subtherapeutic 1.3, chest x-ray unremarkable Previous records were reviewed: Summary Cath : 12/25/2019: Mild coronary disease with two-vessel disease, angiogram was done for worsening of heart failure diagnostic Findings LM has 0% stenosis. CX has 0% stenosis. dLAD: Mild 40% stenosis, SHAHEEN: 3 flow. pRCA: Mild 30% stenosis, SHAHEEN: 3 flow. Coronary angiography shows right dominance Echo CONCLUSIONS 1-Moderately increased left ventricular cavity size. Moderately decreased left ventricular systolic function. Left ventricular ejection fraction is estimated at 40 %. Flattened septum in diastole consistent with right ventricle volume overload. Flattened septum in systole consistent with right ventricle pressure overload. 2-Moderately increased right ventricular size. Moderately decreased right ventricular systolic function. Moderate pulmonary hypertension, RVSP 43.5 mmHg. Catheter/pacemaker wire visualized in the right ventricle. 3-Moderately increased right atrial size. Catheter/pacemaker wire in the right atrial cavity. There appeared to be echogenic mass most likely fibrous tissue in the right atrium. 4-Structurally normal mitral valve without significant stenosis or prolapse. There is mild mitral regurgitation. 5-Structurally normal aortic valve without significant sclerosis or stenosis. There is no aortic regurgitation. 6-Moderate tricuspid valve regurgitation. 7-There is Review of Systems Const: Denies: fever(s) Eyes: Denies: change in vision ENMT: Denies: throat pain Card: Reports: swelling of feet/ankles, dyspnea on exertion and orthopnea; Denies: chest pain Resp: Reports: dyspnea and non-productive cough GI: Denies: abdominal pain, nausea, vomiting or diarrhea : Denies: flank pain Musc: Denies: neck pain Skin/Breast: Reports: lesions and dry skin; Denies: rash Neuro: Denies: headache(s) Psych: Denies: anxiety Endo: Denies: polyuria Lauri/Lymph: Denies: easy bruising All/Imm: Denies: urticaria Medications/Allergies Home Medications Medication Instructions Recorded Confirmed Last Taken Type aspirin 81 mg tablet,delayed 81 mg PO DAILY@0900 tab 05/01/19 04/22/20 04/10/20 History release nitroglycerin 0.4 mg sublingual 0.4 mg SUBLINGUAL Q5M PRN 05/01/19 04/22/20 12/16/19 History tablet albuterol sulfate 2.5 mg INHALATION Q4H PRN 07/17/19 04/22/20 02/07/20 History amiodarone 100 mg PO DAILY@0900 12/09/19 04/22/20 04/10/20 History metoprolol succinate 50 mg PO BEDTIME@199912/09/19 04/22/20 04/09/20 History Portable oxygen with concentrator #1 ea 01/16/20 04/22/20 Unknown Rx levothyroxine 25 mcg PO DAILY@0900 04/10/20 04/22/20 04/10/20 History spironolactone [Aldactone] 25 mg PO DAILY@1600 04/10/20 04/22/20 04/09/20 History furosemide [Lasix] 80 mg PO BID #60 tab 04/14/20 04/22/20 Unknown Rx potassium chloride 20 meq PO TID #90 tab 04/14/20 04/22/20 Unknown Rx atorvastatin 40 mg tablet 40 mg PO BEDTIME@1999 #90 tab 05/05/20 Unknown Rx metolazone 2.5 mg tablet 2.5 mg PO BID #10 tab 06/03/20 Unknown Rx warfarin 2 mg tablet See Rx Instructions .ROUTE 06/03/20 Unknown Rx .COMPLEX #90 tab Allergies Allergy/AdvReac Type Severity Reaction Status Date / Time No Known Allergies Allergy Verified 06/22/20 23:05 PFSH Acute PFSH: Medical History Anemia Atrial fibrillation CAD in [place] artery Cardiomyopathy CHF (congestive heart failure) CVA (cerebral vascular accident) HTN (hypertension) Hyperlipidemia Hypotension Hypothyroid Nicotine dependence, cigarettes, with unspecified nicotine-induced disorders Orthostasis SALONI (obstructive sleep apnea) Pacemaker 2013- dual chamber Panlobular emphysema Paroxysmal A-fib PVD (peripheral vascular disease) Vitamin B12 deficiency Surgical History H/O coronary angioplasty 2013 H/O reduction of closed fracture ankle History of cardiac radiofrequency ablation (RFA) 94743 Hx of appendectomy S/P appendectomy Status cardiac pacemaker Family History Father Myocardial infarct Mother Myocardial infarct Other Family history of premature coronary artery disease Hypertension Social History Smoking and tobacco status: current every day smoker cigarettes Packs smoked per day: 0.5 Years cigarettes smoked: 40 [ Other cigarette details: Hx of 1PPD x 40 Years ] Quit status (tobacco): has tried quititng Second hand smoke exposure: Yes Smoking risk assessment/counseling performed?: Yes Alcohol intake: former Year of sobriety/quit date alcohol: 1980 Lives independently: Yes Household members: spouse Marital status: Current occupational status: disabled History of recent travel: No Current gender identity: Male Vitals/I&O/Wt Last Vital Signs Temp 97.8 F 06/22/20 23:00 Pulse 74 06/23/20 01:46 Resp 22 H 06/23/20 01:46 BP 118/76 06/23/20 01:46 Pulse Ox 95 06/23/20 01:46 Weight last 48 hrs Weight 127.006 kg Physical Exam Narrative: EXAM NARRATIVE: Middle-age male who appears more than stated age No active distress however complaining of 1/10 reproducible chest pain Hemodynamically stable Variable S1-S2 active signs of heart failure with bilateral lower extremity edema Venous stasis dermatitis of lower extremities No active cellulitis No acute respiratory distress Abdomen distended, central obesity patient did not complain of any abdominal pain No neurological deficit EOMI, PERRLA Oriented x3 GCS 15 No joint pains or swelling Appropriate mood and affect Data : 06/22/20 23:00 06/22/20 23:00 A&P Assessment and plan (1) Non-ST elevation NE (NSTEMI): NSTEMI Established coronary disease with double vessel disease with history of stent placement in the past, he is an active smoker, morbidly obese Patient most likely will benefit from another angiogram, I will keep him n.p.o. start him on ACS protocol loaded with Lovenox start aspirin Plavix along statins and lisinopril/metoprolol Continue spironolactone I would not repeat echo as it was done 2 months ago which showed EF 40%, reports in HPI I will also request D-dimer to rule out PE he is subtherapeutic on Coumadin Kindly consult cardiology in the morning no urgent evaluation needed at night, patient is rating chest pain 1/10 which is reproducible Status: Acute Additional A&P Information Systolic congestive heart failure Clinical signs of fluid overload, would request BNP level continue Lasix and hold metolazone for now Considering wrinkling of lower extremity and comfortable breathing in semi- Littlejohn position I would consider him nondecompensated for now Has a dual-chamber pacemaker Suboptimal control hypothyroidism Check TSH, last TSH 11/2015, continue levothyroxine N.p.o. DVT prophylaxis therapeutic Lovenox Goals of care: Full code Attestations 2 Medical Necessity Statement*: Spitting stay in the hospital cross more than 2 midnights currently need cardiac evaluation for NSTEMI Time Spent in Patient Care: 45mins Coding Level of Care Code Acute Computer Help Desk Representative for Ruma Conley Diagnoses Non-ST elevation NE (NSTEMI) I21.4
[2020-06-23] MEDS: morphine 4 mg/mL SDV 1 mL 2 MG IVP (02:41)
[2020-06-23 03:39] LABS: D Dimer 16.76 ug/mIFEU (0-0.59)
[2020-06-23 03:46] LABS: Thyroid Stimulating Hormone 27.18 uIU/mL (0.27-4.20)
[2020-06-23] MEDS: clopidogrel 300 mg Tablet PO (04:06)
--- NOTE | 2020-06-23 04:13 | PC.NURSE ---
Patient to room 279 bed 2 via ER carrier. Pt transported with oxygen via nasal canula at 2 liters. Pt is alert and oriented and participated in the admission questions appropriately. Pt refused the Enoxaparin sub cutaneous injection due to he just doesn't like the shots in the belly. He was educated on the necessity of this medication due to his potential cardiac condition and he continues to refuse the medication.
--- NOTE | 2020-06-23 04:50 | ECG_ITS ---
[facility] Test Date: 2020-06-23 Pat Name: Leroy Gautam Department: Room: 279 Gender: Male Office Associate: : 1960 Requested By: Henna Suarez Order Number: [id number] Darshan MD: Bert Angela M.D. Measurements Intervals Union Rate: 64 P: GA: QRS: -62 QRSD: 104 T: 113 QT: 406 QTc: 420 Interpretive Statements ELECTRONIC VENTRICULAR PACEMAKER LOW QRS VOLTAGE IN PRECORDIAL LEADS [QRS DEFLECTION < 1.0 mV IN CHEST LEADS] LEFT ANTERIOR FASCICULAR BLOCK [QRS AXIS <= -45, QR IN I, RS IN II] POSSIBLE ANTERIOR MYOCARDIAL INFARCTION [30 ms Q WAVE IN V3/V4, OR R < 0.2 mV IN V4], PROBABLY OLD Compared to ECG 06/23/2020 00:41:53 Low QRS voltage now present Left anterior fascicular block now present Myocardial infarct finding now present Right-axis deviation no longer present Intraventricular conduction delay no longer present T-wave abnormality no longer present Electronically Signed On 06-24-2020 16:43:29 FIELD CANE SCALER by Bert Angela M.D. [id number]
[2020-06-23 05:33] LABS: Anion Gap 13.3 (5-19); Blood Urea Nitrogen 15 mg/dL (8-23); Calcium 8.5 mg/dL (8.5-10.5); Carbon Dioxide 25 mmol/L (22-29); Chloride 97 mmol/L (98-107); Creatinine Clr Calc Pharmacy 150.4486; Glomerular Filtration Rate 114.6 mL/min (90-130); Glucose 87 mg/dL (65-115); Osmolality Calculated 274 mOsm/kg (285-295); Potassium 3.3 mmol/L (3.5-5.1); Sodium 132 mmol/L (136-145)
[2020-06-23 05:39] LABS: D Dimer 16.25 ug/mIFEU (0-0.59); Troponin 5 6HR 531.8 ng/L (0-15); Troponin 5 6HR Delta 486.8 ng/L (0-12)
--- NOTE | 2020-06-23 08:27 | USCV_ITS ---
Leroy Gautam Age: 59 Gender: M : 1960 Exam Date: 06/23/2020 09:16 Ordering Phys: Lazaro Noguera MD Technologist: Adalberto Lei [place] [facility] [place]ication: NSTIMI BP: 140 / 76 HR: Rhythm: Sinus Technical Quality: Very poor MEASUREMENTS (Male / Female) Normal Values 2D ECHO LV Diastolic Diameter PLAX 4.7 cm 4.2 - 5.9 / 3.9 - 5.3 cm LV Systolic Diameter PLAX 4.0 cm IVS Diastolic Thickness 0.8 cm 0.6 - 1.0 / 0.6 - 0.9 cm IVS Systolic Thickness 1.5 cm LVPW Diastolic Thickness 1.2 cm 0.6 - 1.0 / 0.6 - 0.9 cm LVPW Systolic Thickness 1.2 cm LVOT Diameter 2.1 cm LV Ejection Fraction 2D Teich 33.8 % LV Ejection Fraction MOD 2C 28.8 % LV Ejection Fraction 2C AL 30.3 % LA Diameter 4.4 cm LA Width 6.8 cm LA Height 7.2 cm RA Width 6.3 cm RA Height 6.3 cm Aorta at Sinotubular Diameter 3.2 cm M-MODE LV Diastolic Diameter MM 5.8 cm 4.2 - 5.9 / 3.9 - 5.3 cm LV Systolic Diameter MM 4.6 cm LV Ejection Fraction MM Teich 42.7 % IVS Diastolic Thickness MM 0.8 cm 0.6 - 1.0 / 0.6 - 0.9 cm IVS Systolic Thickness MM 1.5 cm LVPW Diastolic Thickness MM 0.9 cm 0.6 - 1.0 / 0.6 - 0.9 cm LVPW Systolic Thickness MM 1.3 cm RV Diastolic Diameter MM 4.3 cm Aortic Annulus Diameter 3.2 cm LA Ao Ratio MM 1.4 MV E Point Septal Separation 1.2 cm FINDINGS Left Ventricle Normal left ventricular cavity size. Moderately decreased left ventricular systolic function. Left ventricular ejection fraction is estimated at 42 %. Right Ventricle Right Atrium Left Atrium Moderately increased left atrial size. Mitral Valve Moderately thickened mitral valve. Severe mitral annular calcification. No mitral valve stenosis. Aortic Valve Tricuspid Valve Pulmonic Valve Pericardium Aorta CONCLUSIONS This is a suboptimal quality study which is limited. No Doppler data was recorded 1-Normal left ventricular cavity size. Moderately decreased left ventricular systolic function. Left ventricular ejection fraction is estimated at 42 %. 2-Moderately increased left atrial size. 3-Moderately thickened mitral valve. Severe mitral annular calcification. No mitral valve stenosis. 4-This is a limited study therefore cannot compared with the prior exam. Yomi Amor MD (Electronically Signed) Final Date: 23 June 2020 18:34 S
--- NOTE | 2020-06-23 09:24 | XACV_ITS ---
Exam Room: [facility] Ht: 180 cm Wt: 127 kg BSA: 2.57 m2 Gender: Male : 1960 Any Known Allergies: No known allergies Exam Priority: Routine Indication(s): - Non-ST elevation PA Procedure(s): Procedure Description: Diagnostic procedure Procedure Description: PCI procedure Procedure Description: Drug Eluting Coronary Stent Procedure Description: PTCA Procedure Description: Coronary Angiography Diagnostic Cath Status: Urgent Diagnostic Findings * LM has 0% stenosis. * LAD has 0% stenosis. * CX has 0% stenosis. * Distal Right Coronary Artery: Severe 100% stenosis, SHAHEEN: 0 flow. * Coronary angiography shows right dominance. PCI Status: Urgent PCI Indication: NSTE - ACS Interventional Findings * Distal Right Coronary Artery: 100% stenosis treated with AB TREK 2.25X15 RX BALLOON, AB TREK 2.25X12 RX BALLOON, and MDT R KIMBERLY 2.75X22 KEM. 0% residual stenosis, SHAHEEN: 3 flow. Conclusions 1. There is severe coronary artery disease with one vessel disease. 2. Distal Right Coronary Artery was treated with two Balloon and Drug Eluting Stent. 3. Please note that image quality is suboptimal Indication for cholangiogram: Non-ST elevation PA, heart failure 4. #1 5. L 6. eft main without significant stenosis 7. #2 LAD has luminal irregularity without significant stenosis#3 LCx has luminal irregularity without significant stenosis 8. #4 RCA is 100 9. % 10. occluded in the distal segment, patent previously placed proximal stent, distal RCA is the culprit vessel. Recommendations * 1-Return to inpatient for close monitoring and routine cath care 2-Risk factor modification for secondary prevention 3-Statin and aspirin 81 mg life--long, if tolerated 4-Patient was pre-loaded with 600 mg of Plavix, continue Plavix 75mg p.o. daily for at least one year. We will assess at the end of one year again to continue if further or not 5-Continue optimal medical management 6-Follow up with Dr. Amor in four weeks and your primary care in 10 days. Diagnostic RX Recommendation: PCI w/o planned CABG Pressures Phase:Rest AO : 103 / 65 ( 80 ) @ 4:22:00 AM 120 / 78 ( 96 ) @ 4:34:00 AM 112 / 80 ( 92 ) @ 4:40:00 AM 83 / 56 ( 66 ) @ 5:19:00 AM 80 / 50 ( 66 ) @ 5:26:00 AM Clinical Evaluation EBL: 5mL-10mL Procedural Details Procedure Consent Obtained. Current Diagnosis : NSTEMI. Pre-Procedure Time Out. Identified patient by full name and date of as verbalized by the patient/guarantor. Does the consent match the physician's order: Yes. Accurate & Complete Informed Consent: Yes. Inpatient/Outpatient History & Physical on Chart: Yes. If H&P is completed, is and addenduem needed: N/A. Relevant Radiology Images available: Yes. The risks, benefits, and alternatives of sedation and/or procedure were discussed by physician. The patient agrees to continue. Procedure started. [facility] Clinical Fraility Score: 4: Vulnerable. Combine Inspector Indications: ACS <= 24 hours. Chest Pain Symptom Assessment: Typical Angina Symptoms. Cardiovascular Instability: No. Correct patient, site and procedure confirmed by cath team. Current diagnosis: NSTEMI. PERRLA. Strong, equal hand international first officer bilaterally. Lungs clear x 5 lobes. IV Site on Arrival: 18 gauge in the left anticubital. IV Fluids: 0.9% NaCl at KVO. 0 mL infused prior to laborer airport maintenance. Pre Procedural Pulses: bilateral radial was 3+. Oxygen started at 2liters/min via nasal canula. right groin was prepped with chloroprep then draped in the usual sterile fashion. right radial was prepped with chloroprep then draped in the usual sterile fashion. Physician notified. Patient's family unavailable due to current Covid-19 restrictions. Physician arrived. Equipment: 6F - Radial. Cardiac Cath Pack. ACIST Manifold Kit Model BT 2000. Heparinized Saline (2 units/mL), 1000 mL bag. Baseline sample Acquired. HR: 49 BPM. Shawna Daniel RN, LEAD PONY RIDER was relieved by Desire Hoff RRT as monitoring person. Physician scrubbed in. Immediate Pre-Procedure Time Out. Correct Patient: Yes; Correct Procedure: Yes; Correct Site: Yes; Correct Patient Position: Yes; Correct Supplies: Yes; Dried Flammable Prep: Yes; Blood Products Available: N/A. Lidocaine 1% infiltrated to the right radial. Arterial access obtained. A 5 australian TIG catheter in over wire. Multiple views taken of left coronary artery. Catheter redirected to the RCA. Multiple views taken of right coronary artery. Inventory is CRD 6FR AL .75 GUIDE. 6 australian AL 0.75 guide catheter was inserted over the wire. Inventory is MicroCHIPSgar XT .014 190cm Str. Guidewire. Pickford guidewire was advanced through the guide catheter to lesion in the distal RCA. Inflation number : 1 A AB TREK 2.25X15 RX BALLOON was prepped and advanced across the Dist RCA , then inflated to 12 ASHLIE for 0:27 seconds. Inflation number: 2 The AB TREK 2.25X15 RX BALLOON was reinflated across the Dist RCA, to 14 ASHLIE for 0:23 seconds. Balloon out. Results checked. Wire out. Wire replaced to distal RCA. 2.25x15 balloon reinserted, however guide lost position. Balloon out. Wire out. Guide catheter repositioned. Pickford guidewire was advanced through the guide catheter to lesion in the distal RCA. Inflation number : 3 A AB TREK 2.25X12 RX BALLOON was prepped and advanced across the Dist RCA , then inflated to 8 ASHLIE for 0:40 seconds. Inflation number: 4 The AB TREK 2.25X12 RX BALLOON was reinflated across the Dist RCA, to 8 ASHLIE for 0:33 seconds. Results checked. Inflation number: 2 The AB TREK 2.25X12 RX BALLOON was reinflated across the Dist RCA, to 12 ASHLIE for 0:29 seconds. Inflation number: 3 The AB TREK 2.25X12 RX BALLOON was reinflated across the Dist RCA, to 14 ASHLIE for 0:38 seconds. Inflation number: 4 The AB TREK 2.25X12 RX BALLOON was reinflated across the Dist RCA, to 14 ASHLIE for 0:29 seconds. Balloon out. Inflation Number : 8 Felicia Bauman KIMBERLY 2.75X22 KEM -Lot Number# [id number] exp date 02/03/2022 was prepped and advanced across the Dist RCA. The stent was deployed at 18 ASHLIE for 0:29 seconds. Results checked. Stent balloon out over wire. AB Mini Trek 2.00x12 RX Balloon inserted over wire. Unable to seat in lesion. Balloon removed over wire. Wire out. Guide catheter out. Physician scrubbed out. A TR Band was successful obtaining hemostatsis at the Right Radial artery insertion site. TR band placed. Hemostasis obtained. Post Procedure: Pulses reassessed and unchanged. PERRLA. Strong, equal hand international first officer bilaterally. No VTE prophylaxis required. Medication's Wasted: Heparin = 6000 units. Medication's Wasted: Lidocaine 1% = 18 mL. Medication's Wasted: Nitro = 49.2 mg. Total IV fluids: 125 mL. Contrast type used: Omnipaque 300 mgI/mL, 500 mL bottle. Complications: none. Estimated blood loss: 5mL-10mL. PCI Indication: NSTE. Post-op diagnosis: NSTEMI, stent to distal RCA. Procedure completed. Patient transferred by stretcher to CPRU. Access Site Site: Right Radial artery Sheath Size: 6 Fr Hemostasis Method: TR Band Hemostasis Success: Successful Procedure Medications Start: 9:59 AM Stop: 9:59 AM Medication: Versed Amount: 1 mg Route: I.V. Start: 9:59 AM Stop: 9:59 AM Medication: Fentanyl Amount: 50 mcg Route: I.V. Start: 10:14 AM Stop: 10:14 AM Medication: Versed Amount: 1 mg Route: I.V. Start: 10:14 AM Stop: 10:14 AM Medication: Fentanyl Amount: 50 mcg Route: I.V. Start: 10:20 AM Stop: 10:20 AM Medication: Nitrogylcerin Amount: 400 mcg Route: I.A. Start: 10:30 AM Stop: 10:30 AM Medication: Lovenox (Enoxaparin) Amount: 80 mg Route: I.V. bolus Start: 10:34 AM Stop: 10:34 AM Medication: Versed Amount: 1 mg Route: I.V. Start: 11:01 AM Stop: 11:01 AM Medication: Versed Amount: 1 mg Route: I.V. Start: 11:09 AM Stop: 11:09 AM Medication: Nitrogylcerin Amount: 400 mcg Route: I.C. I, the attending physician, have reviewed and verified all procedure medications. Yes, all medications given per verbal order History/Risk Factors Hypertension: Yes Dyslipidemia: Yes Peripheral Arterial Disease (PAD): Yes Myocardial Infarction (PA): Yes Obesity: Yes Renal Disease: No Tobacco Use: Current/Recent(w/in 1 year) Prior Interventions PCI: Yes CABG: No Valve Surgery: No Date of PCI: 08/07/2015 Report Signatures Finalized by Yomi Aomr MD on 07/04/2020 02:17 PM
--- NOTE | 2020-06-23 09:51 | P.CONIM_ITS ---
Providers/Reason For Consult Consulting Physican/Specialty*: Cardiology Reason for Consult*: Non-ST elevation FL unstable Requesting Physcian: Lazaro Noguera Attending Physician: Lazaro Noguera Primary Care Provider: Ahmet Jasso MD History of Present Illness History of Present Illness Leroy Gautam is a 59 year old male past medical history significant for coronary artery disease, severely depressed ejection fraction, history of ventricle tachycardia, diabetes mellitus, history of smoking, history of systolic heart failure, history of CKD stage III, history of pneumonia, history of anemia, history of CVA, history of severe obstructive sleep apnea, history of emphysema and pacemaker presented with chest pain started an hour before coming to the hospital. He explained it dagger in the chest. He was admitted and ruled in with peak troponin at more than 480. Since he continues to have chest pain we will take him to the Pollution Control Technician. Patient has been explained all risk benefit and alternative for the procedure. He understand the risk of bleeding arrhythmia stroke urgent emergent bypass and . He has been loaded with 300 mg of Plavix. INR is 1.38. He was given Lovenox dose 1 AM . Review of Systems Const: Denies: fever(s), chills, body aches or change in appetite Eyes: Denies: change in vision, blurry vision, photophobia or eye discomfort ENMT: Denies: throat pain, enlarged tonsils or dental pain Card: Reports: swelling of feet/ankles, dyspnea on exertion and orthopnea; Denies: chest pain Resp: Reports: dyspnea and non-productive cough GI: Denies: abdominal pain, nausea, vomiting or diarrhea : Denies: flank pain or dysuria Musc: Denies: neck pain, back pain or joint warmth Skin/Breast: Reports: lesions and dry skin; Denies: rash Neuro: Denies: headache(s) Psych: Denies: anxiety, depression or sleeping more Endo: Denies: polyuria Lauri/Lymph: Denies: easy bruising All/Imm: Denies: urticaria or acute wheezing Meds/Allergies Home Medications and Allergies Home Medications Medication Instructions Recorded Confirmed Last Taken Type nitroglycerin 0.4 mg sublingual 0.4 mg SUBLINGUAL Q5M PRN 05/01/19 06/24/20 06/22/20 History tablet albuterol sulfate 2.5 mg INHALATION Q4H PRN 03/12/20 02/18/21 10/03/20 History amiodarone 100 mg PO DAILY@0900 12/09/19 06/24/20 06/22/20 History metoprolol succinate 50 mg PO BEDTIME@199912/09/19 06/24/20 06/22/20 History Portable oxygen with concentrator #1 ea 01/16/20 06/24/20 Unknown Rx spironolactone [Aldactone] 25 mg PO DAILY@1600 04/10/20 06/24/20 06/22/20 History atorvastatin 40 mg tablet 40 mg PO BEDTIME@1999 #90 tab 05/05/20 06/24/20 06/22/20 Rx warfarin 2 mg tablet See Rx Instructions .ROUTE 06/03/20 06/24/20 06/22/20 Rx .COMPLEX #90 tab clopidogrel 75 mg PO DAILY #30 tab 06/24/20 Unknown Rx furosemide 80 mg PO BID@0900,199906/24/20 06/24/20 06/22/20 History levothyroxine 50 mcg PO DAILY@09 #30 tab 06/24/20 Unknown Rx metolazone 2.5 mg PO BID@0900,199906/24/20 06/24/20 06/22/20 History nystatin 1 applic TOPICAL BID #15 g 06/24/20 Unknown Rx potassium chloride 20 meq PO TID@,06/24/20 06/24/20 06/22/20 History Allergies Allergy/AdvReac Type Severity Reaction Status Date / Time No Known Allergies Allergy Verified 06/22/20 23:05 Current Medications Current Medications Generic Name Dose Route Start Last Admin Trade Name Freq PRN Reason Stop Dose Admin Enoxaparin Sodium 100 mg 06/23/20 03:10 06/23/20 04:12 Enoxaparin 100 Mg/Ml Syringe SUBCUT Not Given Q12H CARLOS Enoxaparin Sodium 30 mg 06/23/20 03:10 06/23/20 04:13 Enoxaparin 30 Mg/0.3 Ml Syringe SUBCUT Not Given Q12H CARLOS PFSH Acute PFSH: Medical History Anemia Atrial fibrillation CAD in minto artery Cardiomyopathy CHF (congestive heart failure) CVA (cerebral vascular accident) HTN (hypertension) Hyperlipidemia Hypotension Hypothyroid Nicotine dependence, cigarettes, with unspecified nicotine-induced disorders Orthostasis SALONI (obstructive sleep apnea) Pacemaker 2014- dual chamber Panlobular emphysema Paroxysmal A-fib PVD (peripheral vascular disease) Vitamin B12 deficiency Surgical History H/O coronary angioplasty 2013 H/O reduction of closed fracture ankle History of cardiac radiofrequency ablation (RFA) 04802 Hx of appendectomy S/P appendectomy Status cardiac pacemaker Family History Father Myocardial infarct Mother Myocardial infarct Other Family history of premature coronary artery disease Hypertension Social History Smoking and tobacco status: current every day smoker cigarettes Packs smoked per day: 0.5 Years cigarettes smoked: 40 [ Other cigarette details: Hx of 1PPD x 40 Years ] Quit status (tobacco): has tried quititng Second hand smoke exposure: Yes Smoking risk assessment/counseling performed?: Yes Alcohol intake: former Year of sobriety/quit date alcohol: 1980 Lives independently: Yes Household members: spouse Marital status: Current occupational status: disabled History of recent travel: No Current gender identity: Male Dietary Habits: Current diet type/program: regular Caffeine: Yes Caffeine intake frequency: carbonated beverages Number of carbonated beverage servings: 4 and tea Number of tea servings: 10 Exercise: What type of physical activity do you participate in?: none Safety: Seatbelt use: always Home Safety: Working smoke detector in home: Yes Fire extinguisher in home: Yes Carbon monoxide detector in home: Yes Personal Safety: Do you feel safe at home: Yes Vitals/I&O/Wt Last Vital Signs Temp 98.2 F 06/23/20 07:44 Pulse 79 06/23/20 07:44 Resp 18 06/23/20 07:44 BP 120/75 06/23/20 07:44 Pulse Ox 93 06/23/20 07:44 Weight last 48 hrs Weight 280 lb Physical Exam Narrative: EXAM NARRATIVE: GENERAL: Patient is alert, awake and oriented x3. NECK: No jugular vein distension. HEENT: No cyanosis. No icterus. No pallor. HEART: Regular S1 and S2. No murmur, rub or gallop. LUNGS: Clear to auscultate bilaterally. ABDOMEN: Soft, nontender and nondistended. Positive bowel sounds. No guarding, rebound or tenderness. CENTRAL NERVOUS SYSTEM: Grossly nonfocal. EXTREMITIES: Lower extremities with 1+ edema bilaterally. Right groin purulent discharge with fungus, left groin no significant lesion or infection A&P Assessment and plan (1) Non-ST elevation FL (NSTEMI): Patient presented with non-ST elevation FL. He was loaded with Plavix aspirin and anticoagulation. Since he continues to have chest pain off and on basis and intermittently we will proceed with early invasive strategy. Status: Acute (2) Systolic congestive heart failure with reduced left ventricular function, NYHA class 4: Appear to be compensated Status: Acute (3) PVD (peripheral vascular disease): Stable from a peripheral vascular disease perspective Status: Acute (4) Cardiomyopathy: History of severely LV dysfunction ejection fraction. Continue to optimize medicine Status: Acute Qualifiers: Cardiomyopathy type: ischemic Qualified Code(s): I25.5 - Ischemic cardiomyopathy (5) Fungal infection of the groin: Right groin fungus with drainage. We will start him on antibiotics and nystatin powder. Status: Acute Consult Attestations Medical Necessity Statement: I am expecting his stay to cross more than 2 midnights. Coding Level of Care Code New Pt Acute Regional Commercial Sales Manager for g Fwd Patient Type New History Detailed Exam Detailed Medical Decision Making Moderate Complexity Diagnoses Non-ST elevation [place] (NSTEMI) I21.4 Systolic congestive heart failure with reduced left ventricular function, NYHA class 4 I50.20 PVD (peripheral vascular disease) I73.9 Cardiomyopathy I25.5 Cardiomyopathy type: ischemic Fungal infection of the groin B35.6
--- NOTE | 2020-06-23 09:55 | PC.CHAP ---
Pastoral Care Encounter/Spiritual Assessment Type of Contact [] Declined bond trader visit [] Patient/Family/Request visit [] Outpatient visit [] Follow-up visit [] Physician referral [] Code/Alert [x] Routine visit [] Staff referral [] Actively dying [] Patient sleeping [] Family support [] [] Out of room [] Palliative care [] [] Receiving care in room [] Pre-surgical visit [] Trauma [] Long length of stay [] ICU visit [] Other: Relational/Emotional Strength [x] Patient feels connected with others/family/visitors/staff [] Distress [] Loneliness/isolation [] Abandonment Spirituality of Patient [x] Person of Nano [] Attends Sikh of their Nano [] Believes in Prayer [] Reads Bible or Anabaptism materials [] There are Spiritual issues to be addressed Gifted Teacher Interventions [x] Prayer [] Active listening [] Non-anxious presence [] Spiritual/emotional support [] Crisis/trauma care [] Spiritual counseling [] Bereavement support [] Provided bereavement packet [] Provided Bible/devotional materials [] Provided toy/stuffed animal, coloring book to patient or family member [] Provided Communion [] Anointing/[place] [] Salvation [x] Completed spiritual assessment [] Other: Impact on Illness or Injury [] Angry [] Fearful [] Anxious [] Often cries [] Exhaustion [] Unable to work [] Unable to attend restoration [] Unable to walk/stand [] Unable to read [] Unable to drive [] Unable to eat/drink [] Unable to sleep [] Unable to be with family [] Patient intubated [] Other: Summary pataint not feeling well chest hurting Time spent with patient 10 min
--- NOTE | 2020-06-23 10:05 | W.PM.OPSUD ---
Surgery/Procedure H&P Update DATE OF PROCEDURE: June 23, 2020 DATE H&P PERFORMED: 06/23/20 H&P UPDATE INFORMATION: I have examined patient prior to procedure and No changes to prior documentation PREOP DIAGNOSIS: Non-ST elevation PA PATIENT REASSESSED PRIOR TO SEDATION, WITH NO CHANGE NOTED: Yes PHYSICAL EXAM: alert, oriented x 3 and clear to auscultation bilaterally AIRWAY EVAL/ANESTHESIA PLAN: normal airway, ASA II, Risks, benefits & alternatives of sedation and/or procedure discussed and Patient agrees to continue as planned
--- NOTE | 2020-06-23 13:52 | SUR.PHASEI ---
TR BAND REMOVAL Band deflation began using protocol. No hematoma formation noted.
[2020-06-23] MEDS: spironolactone 25 mg Tablet PO ×2 (16:47→17:08)
--- NOTE | 2020-06-23 18:40 | PC.NURSE ---
TR band now removed air was released 1 ml at a time. PT had no bleeding or pain noted. Will continue to monitor.
--- NOTE | 2020-06-23 19:33 | P.PN_ITS ---
Subjective Subjective: Interval history: Asleep. Wakes up easily. Denies chest pain or pressure. No trouble breathing. Uses chronic supplemental oxygen at home at 2 L nasal cannula. No issues with access site in the right wrist. Request for a Dr. Lockhart. Vitals/I&O/Wt Last Vital Signs Temp 97.8 F 06/23/20 15:23 Pulse 71 06/23/20 15:23 Resp 24 H 06/23/20 15:23 BP 121/73 06/23/20 15:23 Pulse Ox 98 06/23/20 15:23 Weight last 48 hrs Weight 127.006 kg Physical Exam Const: COMMON NORMALS: no acute distress and patient oriented x3 HENMT: COMMON NORMALS: oropharynx normal Neck/C-Spine: COMMON NORMALS: no JVD Resp: COMMON NORMALS: normal respiratory effort and clear to auscultation bilaterally AUSCULTATION: clear to auscultation bilaterally Cardio: COMMON NORMALS: no JVD, regular rhythm, S1 normal heart sound present, S2 normal heart sound present and No murmurs present (Cardio) RHYTHM: regular rhythm HEART SOUNDS: S1 normal heart sound present and S2 normal heart sound present GI: COMMON NORMALS: Normal to inspection, nondistended, normoactive bowel sounds present, Soft to palpation and non-tender PALPATION: Yes Soft to palpation Extremity: COMMON NORMALS: no joint enlargement and no pedal edema OTHER: Right wrist adhesive dressing in place. No bleeding, no swelling no pulsatile mass. Neuro: COMMON NORMALS: patient oriented x3 and moves all extremities Skin: COMMON NORMALS: no rashes or lesions noted GENERAL SKIN EXAM: no rashes or lesions noted Data : 06/22/20 23:00 06/23/20 04:46 A&P Assessment and plan (1) Non-ST elevation [place] (NSTEMI): Continue cardiac medications. Status post coronary angiography with PCI with required stent placement to RCA. Doing well post angiography so far. Status: Acute Additional A&P Information Systolic congestive heart failure: Continue diuresis. He is feeling better. Oxygen requirement similar to what he uses at home. Has a dual-chamber pacemaker Suboptimal control hypothyroidism: TSH elevated at 27.18. Will increase levothyroxine dose to 50 mcg. Follow-up thyroid function with primary care. Attestations Medical Necessity Statement*: Continue admission for assessment of management of non-STEMI, in the setting of chronic systolic CHF, poorly controlled hypothyroidism. Coding Level of Care Code Acute Television Actor for Chg Fwd Diagnoses Non-ST elevation [place] (NSTEMI) I21.4
--- NOTE | 2020-06-23 19:38 | PC.NURSE ---
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
[2020-06-23] MEDS: atorvastatin 40 mg Tablet 80 MG PO (20:49)
[2020-06-23] MEDS: potassium chloride ER 20 mEq Tablet PO (20:50)
[2020-06-24 04:00] VITALS: BP 133/62; PULSE 77; RESP 16; TEMP 37.1; O2SAT 90
[2020-06-24 05:06] LABS: Basophils # 0.1 10^3/uL (0.0-0.1); Basophils % 0.9 %; Eosinophils # 0.4 10^3/uL (0.0-0.8); Eosinophils % 4.7 %; Hematocrit 31.4 % (42.0-52.0); Hemoglobin 8.9 g/dL (11.7-16.6); Lymphocytes # 1.6 10^3/uL (0.8-4.8); Lymphocytes % 20.4 %; Mean Corpuscular HGB Conc 28.3 g/dL (30.0-36.0); Mean Corpuscular Hemoglobin 23.2 pg (28.0-34.0); Mean Platelet Volume 9.4 fL (7.4-10.4); Monocytes % 12.9 %; Neutrophils # 4.82 10^3/uL (1.8-7.7); Neutrophils % 60.7 %; Nucleated Red Blood Cells % 0 %; Platelet Count 211 10^3/cmm (130-400); Red Blood Count 3.83 10^6/uL (4.1-5.3); Red Cell Distribution Width 20.9 % (12.1-15.1); White Blood Count 7.9 10^3/uL (4.0-10.0)
[2020-06-24 05:31] LABS: Anion Gap 12.7 (5-19); Blood Urea Nitrogen 14 mg/dL (8-23); Calcium 8.6 mg/dL (8.5-10.5); Carbon Dioxide 26 mmol/L (22-29); Chloride 98 mmol/L (98-107); Glomerular Filtration Rate 98.3 mL/min (90-130); Glucose 100 mg/dL (65-115); Osmolality Calculated 277 mOsm/kg (285-295); Potassium 3.7 mmol/L (3.5-5.1); Sodium 133 mmol/L (136-145)
[2020-06-24 06:00] VITALS: PULSE 74
[2020-06-24 07:35] VITALS: BP 119/65; PULSE 70; RESP 20; TEMP 36.7; O2SAT 90
[2020-06-24] MEDS: levothyroxine 50 mcg Tablet PO (09:07)
[2020-06-24] MEDS: potassium chloride ER 20 mEq Tablet PO (09:07)
[2020-06-24] MEDS: aspirin 81 mg EC Tablet PO (09:07)
[2020-06-24] MEDS: FUROsemide 40 mg Tablet 80 MG PO (09:07)
[2020-06-24] MEDS: amiodarone 200 mg Tablet 100 MG PO (09:07)
[2020-06-24] MEDS: clopidogrel 75 mg Tablet PO (09:08)
[2020-06-24] MEDS: metoprolol succinate ER (24 HR) 25 mg Tablet 12.5 MG PO (09:08)
--- NOTE | 2020-06-24 10:15 | PC.CHAP ---
Pastoral Care Encounter/Spiritual Assessment Type of Contact [] Declined route delivery service driver visit [] Patient/Family/Request visit [] Outpatient visit [] Follow-up visit [] Physician referral [] Code/Alert [x] Routine visit [] Staff referral [] Actively dying [] Patient sleeping [] Family support [] [] Out of room [] Palliative care [] [] Receiving care in room [] Pre-surgical visit [] Trauma [] Long length of stay [] ICU visit [] Other: Relational/Emotional Strength [] Patient feels connected with others/family/visitors/staff [] Distress [] Loneliness/isolation [] Abandonment Spirituality of Patient [] Person of Nano [] Attends Pentecostalism of their Nano [] Believes in Prayer [] Reads Bible or Pentecostalism materials [] There are Spiritual issues to be addressed Trust Vault Custodian Interventions [x] Prayer [x] Active listening [x] Non-anxious presence [x] Spiritual/emotional support [] Crisis/trauma care [] Spiritual counseling [] Bereavement support [] Provided bereavement packet [] Provided Bible/devotional materials [] Provided toy/stuffed animal, coloring book to patient or family member [] Provided Communion [] Anointing/[place] [] Salvation [x] Completed spiritual assessment [] Other: Impact on Illness or Injury [] Angry [] Fearful [] Anxious [] Often cries [] Exhaustion [] Unable to work [] Unable to attend mormonism [] Unable to walk/stand [] Unable to read [] Unable to drive [] Unable to eat/drink [] Unable to sleep [] Unable to be with family [] Patient intubated [] Other: Summary slept ok Time spent with patient 5 min
[2020-06-24 10:49] VITALS: BP 110/71; PULSE 82; RESP 20; TEMP 36.9; O2SAT 91
[2020-06-24 11:35] VITALS: PULSE 90; O2SAT 91
--- NOTE | 2020-06-24 12:16 | P.DS_ITS ---
Discharge Providers Date of Admission: 06/23/20 01:22 Date of Discharge: June 24, 2020 Attending Provider at Admission: Yomi Nieves MD Attending Provider at Discharge: Lazaro Noguera Primary Care Provider: Ahmet Jasso MD Diagnoses at Discharge Discharge Diagnosis (1) Non-ST elevation [place] (NSTEMI): Status: Acute (2) Fungal infection of the groin: Status: Acute (3) Hypothyroidism: Status: Acute Reason for Visit Reason for Visit: CP Hospital Course Hospital Course Pleasant 59-year-old gentleman with history of CAD, A. fib, pacemaker, PVD, CVA, on chronic anticoagulation with warfarin, with history of CHF presented with chest pain, with finding of NSTEMI on presentation, for which she was treated, and subsequently underwent right wrist access coronary angiographic evaluation and treatment with deployment of stent to significantly stenotic RCA. He remained chest pain-free subsequently. Heart failure remained stable. He continues on diuretics. He has had no worsening in breathing or oxygenation. Due to chronic warfarin therapy per cardiology recommendation he continues on Plavix without aspirin, continues on warfarin. He continues on beta-blockers, statin. He is asked to follow-up with cardiology office. During hospitalization incidentally noted elevated TSH 27.18. Levothyroxine dose increased to 50 mcg. Please follow-up thyroid function. During cardiac procedure also noted to have tinea cruris with fungal infection in groin. Nystatin ointment is provided. Please follow-up at next visit. Physical Exam Const: COMMON NORMALS: no acute distress and patient oriented x3 HENMT: COMMON NORMALS: oropharynx normal Neck/C-Spine: COMMON NORMALS: no JVD Resp: COMMON NORMALS: normal respiratory effort and clear to auscultation bilaterally AUSCULTATION: clear to auscultation bilaterally Cardio: COMMON NORMALS: no JVD, regular rhythm, S1 normal heart sound present, S2 normal heart sound present and No murmurs present (Cardio) RHYTHM: regular rhythm HEART SOUNDS: S1 normal heart sound present and S2 normal heart sound present GI: COMMON NORMALS: Normal to inspection, nondistended, normoactive bowel sounds present, Soft to palpation and non-tender PALPATION: Yes Soft to palpation Extremity: COMMON NORMALS: no joint enlargement and no pedal edema OTHER: Right wrist adhesive dressing in place. No bleeding, no swelling no pulsatile m ass. 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 service Routin e Exams 06/23/20 09:24 Taken Labs from last 24 hours 06/24/20 06/24/20 04:22 04:22 WBC 7.9 RBC 3.83 L Hgb 8.9 L Hct 31.4 L MCV 82.0 MCH 23.2 L MCHC 28.3 L RDW 20.9 H Plt Count 211 MPV 9.4 Neut % (Auto) 60.7 Lymph % (Auto) 20.4 [place] % (Auto) 12.9 Eos % (Auto) 4.7 Baso % (Auto) 0.9 Neut # (Auto) 4.82 Lymph # (Auto) 1.6 [place] # (Auto) 1.0 H Eos # (Auto) 0.4 Baso # (Auto) 0.1 Nucleated RBC % (a uto) 0 Nucleated RBCs # 0.0 Sodium 133 L Potassium 3.7 Chloride 98 Carbon Dioxide 26 Anion Gap 12.7 BUN 14 Creatinine 0.8 GFR Calculation 98.3 Glucose 100 Calculated Osmolal ity 277 L Calcium 8.6 Vitals: Last Vital Signs Temp 98.4 F 06/24/20 10:49 Pulse 90 06/24/20 11:35 Resp 20 H 06/24/20 10:49 BP 110/71 06/24/20 10:49 Pulse Ox 91 06/24/20 11:35 Discharge Plan Discharge Patient Disposition: Home Condition: Stable Prescriptions: New clopidogrel 75 mg Tablet 75 mg PO DAILY Qty: 30 RF: 0 nystatin 100,000 unit/gram ointment 1 applic topical BID Qty: 15 RF: 0 Continued nitroglycerin [Nitrostat] 0.4 mg tablet, sublingual 0.4 mg SUBLINGUAL Q5M PRN (Reason: Chest Pain) RF: 0 albuterol sulfate 2.5 mg /3 mL (0.083 %) solution for nebulization 2.5 mg INHALATION Q4H PRN (Reason: shortness of breath ) RF: 0 (DME) Portable oxygen with concentrator See Rx Instructions .Route .MEDSUPPLY Qty: 1 RF: 0 atorvastatin 40 mg tablet 40 mg PO BEDTIME@1999 Qty: 90 RF: 3 warfarin 2 mg tablet See Rx Instructions .ROUTE .COMPLEX Qty: 90 RF: 0 amiodarone 200 mg tablet 100 mg PO DAILY@0900 RF: 0 metoprolol succinate 25 mg tablet extended release 24 hr 50 mg PO BEDTIME@1999 RF: 0 furosemide 40 mg tablet 80 mg PO BID@899,1999 RF: 0 metolazone 2.5 mg tablet 2.5 mg PO BID@ RF: 0 potassium chloride 20 mEq tablet,ER particles/crystals 20 meq PO TID@, RF: 0 spironolactone [Aldactone] 25 mg tablet 25 mg PO DAILY@1600 RF: 0 Changed levothyroxine 50 mcg tablet 50 mcg PO DAILY@0900 Qty: 30 RF: 0 Discontinued aspirin [Enteric Coated Aspirin] 81 mg tablet,delayed release (DR/EC) 81 mg PO DAILY@0900 RF: 0 Discharge Orders: Discharge Order (Routine); Ordered 06/24/20 Ordered By: Lazaro Noguera Referrals: Ahmet Jasso MD [Primary Care Provider] - 4-7 days Yomi Amor MD [Physician] - 1 month Alyson Nick FNP [Nurse Practitioner] - 1 week Discharge Diet: Cardiac Discharge Activity: Limit activity as instructed Patient Instructions: Clopidogrel (By mouth), Tinea Cruris, Heart Failure (GEN), Left Heart Catheterization (DC), Coronary Angioplasty (DC), Hypothyroidism (GEN) Activity Restrictions/Additional Instructions: Avoid lifting more than 2 lbs in 3 days. If you experience any chest pain, any pain in her right wrist, any bleeding, significant bruising or pulsatile mass, seek medical attention without delay. Please continue to optimize risk factors of coronary disease, including blood pressure, cholesterol. Work with your primary care doctor to lose weight. Please be aware that your levothyroxine dose was adjusted as your TSH is elevated meaning you likely have hypothyroidism that needs a little bit more intensive treatment. Please follow-up with your primary care doctor regarding the adjustment of the dose, and reassessment to see if the dose needs to be adjusted any further. Discussed with your primary care doctor fungal infection in your groin. Nystatin ointment is provided for treatment and relief. Discharge Attestations Time Spent in Discharge Care*: greater than 30 min Status at Discharge: Cognitive status at discharge: cognitively intact , Behavioral status at discharge: cooperative , Quality Metrics Clinical Quality Measures During this hospital stay, did patient experience: AMI Clinical Trial Participant: No Contraindication to aspirin (AMI): On Warfarin or Pradaxa at discharge Contraindication to statin: Statin prescribed Contraindication to PCI: PCI performed Coding Level of Care Code Acute User Acceptance Tester for Ruma Fwnikita Diagnoses Non-ST elevation [place] (NSTEMI) I21.4 Fungal infection of the groin B35.6 Hypothyroidism E03.9
[2020-06-24 13:19] VITALS: BP 110/71; PULSE 90; RESP 20; TEMP 36.7; O2SAT 91
--- NOTE | 2020-06-24 14:23 | PC.NURSE ---
Pt discharged home. IV removed no redness or swelling noted. Pts discharge instructions given along with prescriptions and follow up appointment. Pt had no c/o pain or discomfort at the time of discharge.
--- NOTE | 2020-06-24 16:27 | PM.PN ---
Subjective Subjective: Interval history: No overnight event. Doing fine notes more chest pain he is walking around without any difficulty. Vitals/I&O/Wt Last Vital Signs Temp 98.0 F 06/24/20 13:19 Pulse 90 06/24/20 13:19 Resp 20 H 06/24/20 13:19 BP 110/71 06/24/20 13:19 Pulse Ox 91 06/24/20 13:19 06/24/20 06/24/20 06/24/20 06:59 14:59 22:59 Intake Total 240 / 480 480 / 480 Balance 240 / 480 480 / 480 Weight last 48 hrs Weight 280 lb Physical Exam Narrative: EXAM NARRATIVE: GENERAL: Patient is alert, awake and oriented x3. NECK: No jugular vein distension. HEENT: No cyanosis. No icterus. No pallor. HEART: Regular S1 and S2. No murmur, rub or gallop. LUNGS: Clear to auscultate bilaterally. ABDOMEN: Soft, nontender and nondistended. Positive bowel sounds. No guarding, rebound or tenderness. CENTRAL NERVOUS SYSTEM: Grossly nonfocal. EXTREMITIES: Lower extremities with 1+ edema bilaterally. Right groin purulent discharge with fungus, left groin no significant lesion or infection Const: COMMON NORMALS: alert Resp: COMMON NORMALS: clear to auscultation bilaterally AUSCULTATION: clear to auscultation bilaterally Neuro: SENSORIUM/ORIENTATION: Yes alert Data : 06/24/20 04:22 06/24/20 04:22 A&P Assessment and plan (1) Non-ST elevation IN (NSTEMI): Stable. Continue current regimen continue Plavix and rest of the medicines. Patient has been advised to stick with Plavix for at least 1 year after that we will further assess for the continuation or not Status: Acute (2) Systolic congestive heart failure with reduced left ventricular function, NYHA class 4: Appear to be compensated. Continue current regimen Status: Acute (3) PVD (peripheral vascular disease): Stable from a peripheral vascular disease perspective Status: Acute (4) Cardiomyopathy: History of severely LV dysfunction ejection fraction. Continue to optimize medicine Status: Acute Qualifiers: Cardiomyopathy type: ischemic Qualified Code(s): I25.5 - Ischemic cardiomyopathy (5) Fungal infection of the groin: Despite of utmost effort patient continues to refuse nystatin powder. I have questioned with the patient and advised that he should apply to the right groin due to fungal infection. Our medicine colleagues will start him on antifungal medicine for home. 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
== END 2020-06-24 13:45 | disposition home or self-care (01) | DRG 246 ==
LOC: ER 06-23 01:22 → MEDSURG 06-23 02:16 → CSU 06-23 15:18
PROVIDERS: Internal Medicine Cardiovascular Disease; Admitting Provider Internal Medicine; Emergency Provider Emergency Medicine; PCP Internal Medicine; Visit Provider Internal Medicine
PROC: 027034Z Dilation of Coronary Artery, One Artery with Drug-eluting Intraluminal Device, Percutaneous Approach (ICD-10-PCS; principal; 2020-06-23 11:45)
PROC: 027034Z Dilation of Coronary Artery, One Artery with Drug-eluting Intraluminal Device, Percutaneous Approach (ICD-10-PCS; 2020-06-23 11:45)
DX: I21.4 Non-ST elevation (NSTEMI) myocardial infarction (principal); I50.23 Acute on chronic systolic (congestive) heart failure; I13.0 Hypertensive heart and chronic kidney disease with heart failure and stage 1 through stage 4 chronic kidney disease, or unspecified chronic kidney disease; I48.20 Chronic atrial fibrillation, unspecified; I25.10 Atherosclerotic heart disease of native coronary artery without angina pectoris; Z95.5 Presence of coronary angioplasty implant and graft; N18.30 Chronic kidney disease, stage 3 unspecified; I27.81 Cor pulmonale (chronic); Z99.81 Dependence on supplemental oxygen; F17.210 Nicotine dependence, cigarettes, uncomplicated; D64.9 Anemia, unspecified; Z86.73 Personal history of transient ischemic attack (TIA), and cerebral infarction without residual deficits; E78.5 Hyperlipidemia, unspecified; E03.9 Hypothyroidism, unspecified; G47.33 Obstructive sleep apnea (adult) (pediatric); Z95.0 Presence of cardiac pacemaker; I73.9 Peripheral vascular disease, unspecified; E53.8 Deficiency of other specified B group vitamins; E66.01 Morbid (severe) obesity due to excess calories; Z68.39 Body mass index [BMI] 39.0-39.9, adult; Z87.01 Personal history of pneumonia (recurrent); Z79.01 Long term (current) use of anticoagulants; Z79.51 Long term (current) use of inhaled steroids; B35.6 Tinea cruris; I25.5 Ischemic cardiomyopathy; J43.9 Emphysema, unspecified
CPT/HCPCS: 36415; 71045; 80048; 80053; 84443; 84484; 85025; 85378; 85610; 93005; 93308; 93454; 96372; 96374; 96376; 99285; C1725; C1769; C1874; C1887; C1894; C9600; J1644; J1650; J2250; J2270; J3010; J3490; J7030; Q9967

== ENCOUNTER 2020-06-29 09:12 | Inpatient (IN) | payer MEDICARE, SELFPAY ==
[2020-06-29] VITALS (18 sets, daily range): BP systolic 96–167; BP diastolic 62–83; PULSE 60–89; RESP 12–21; TEMP 36.4–36.6; O2SAT 87–100; BMI 39.0
--- NOTE | 2020-06-29 09:25 | XR_ITS ---
WS: [id number] Exam: XR chest 1V portable [id number] Date/Time of Exam: 06/29/2020 9:25 AM Reason For Exam: dyspnea/cough Comparison 06/22/2020 and 04/10/2020. Mild groundglass infiltrate along the left heart border. Remaining lung freed are clear. No pneumoth orax or pleural effusion. Cardiac enlargement unchanged. Permanent cardiac pacer superimposes the lef t chest. The mediastinum is not widened for a portable technique. Bony structures are intact. XR/XR chest 1V portable [id number] IMPRESSION: 1. Mild groundglass infiltrate along the left heart border. This is suspicious for developing pneumonia. 2. Cardiac enlargement unchanged. Pulmonary vascularity is mildly prominent, un changed.
--- NOTE | 2020-06-29 09:26 | ECG_ITS ---
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 Measurements Intervals [place] Rate: 62 P: SC: QRS: 261 QRSD: 220 T: 76 QT: 564 QTc: 576 Interpretive Statements ELECTRONIC VENTRICULAR PACEMAKER Compared to ECG 06/23/2020 05:51:24 Left anterior fascicular block no longer present Myocardial infarct finding no longer present Electronically Signed On 06-29-2020 17:38:24 LEATHER HEEL BREASTER by Bert Angela M.D. [id number]
[2020-06-29 09:45] LABS: Basophils # 0.1 10^3/uL (0.0-0.1); Basophils % 1.5 %; Eosinophils # 0.3 10^3/uL (0.0-0.8); Eosinophils % 3.8 %; Hematocrit 33.6 % (42.0-52.0); Hemoglobin 9.6 g/dL (11.7-16.6); Lymphocytes # 1.8 10^3/uL (0.8-4.8); Lymphocytes % 20.9 %; Mean Corpuscular HGB Conc 28.6 g/dL (30.0-36.0); Mean Platelet Volume 9.5 fL (7.4-10.4); Monocytes # 1.2 10^3/uL (0.2-0.9); Neutrophils # 5.11 10^3/uL (1.8-7.7); Neutrophils % 59.2 %; Nucleated Red Blood Cells % 0.2 %; Platelet Count 260 10^3/cmm (130-400); Red Cell Distribution Width 21.2 % (12.1-15.1); White Blood Count 8.6 10^3/uL (4.0-10.0)
--- NOTE | 2020-06-29 09:54 | ED_ITS ---
HPI - Weakness General: Chief complaint: Weakness Stated complaint: GENERAL WEAKNESS Time Seen by Provider: 06/29/20 09:14 History of Present Illness: HPI Narrative: 59-year-old male presents emergency room with complaints of generally not feeling well and weakness. He was here a week ago had an NSTEMI resulted in getting angiogram with stenting. He said since then time he has been extremely tired and fatigued. He was discharged 5 days ago. Reviewing his medication segment pharmacy was found that he had not filled his clopidogrel or started taking it patient confirms this. MD Complaint: generalized weakness Onset (ago): day(s) Duration: constant Location: generalized Relieving factors: none Exacerbating factors: none Associated symptoms: Denies chest pain, chills, confusion, melena, decreased appetite, diaphoresis, dysuria, easy bruising, fever(s), headache(s), myalgias, nausea, rash, short of breath, syncope or vomiting Review of Systems Const: Denies: fever(s), chills or diaphoresis ENMT: Denies: throat pain, ear or mastoid pain, nasal discharge or nasal congestion Card: Denies: chest pain or syncope Resp: Denies: dyspnea, productive cough or non-productive cough GI: Denies: nausea, vomiting or melena : Denies: dysuria Skin/Breast: Denies: rash or pruritus Neuro: Denies: headache(s) Lauri/Lymph: Denies: easy bruising PFS ED PFSH: Medical History Anemia Atrial fibrillation CAD in [place] artery Cardiomyopathy CHF (congestive heart failure) CVA (cerebral vascular accident) HTN (hypertension) Hyperlipidemia Hypotension Hypothyroid Nicotine dependence, cigarettes, with unspecified nicotine-induced disorders Non-ST elevation [place] (NSTEMI) Orthostasis SALONI (obstructive sleep apnea) Pacemaker 2014- dual chamber Panlobular emphysema Paroxysmal A-fib PVD (peripheral vascular disease) Vitamin B12 deficiency Surgical History H/O coronary angioplasty 2013 H/O reduction of closed fracture ankle History of cardiac radiofrequency ablation (RFA) 33692 Hx of appendectomy S/P appendectomy Status cardiac pacemaker Family History Father Myocardial infarct Mother Myocardial infarct Other Family history of premature coronary artery disease Hypertension Social History Smoking and tobacco status: current every day smoker cigarettes Packs smoked per day: 0.5 Years cigarettes smoked: 40 [ Other cigarette details: Hx of 1PPD x 40 Years ] Quit status (tobacco): has tried quititng Second hand smoke exposure: Yes Smoking risk assessment/counseling performed?: Yes Alcohol intake: former Year of sobriety/quit date alcohol: 1979 Lives independently: Yes Household members: spouse Marital status: Current occupational status: disabled History of recent travel: No Current gender identity: Male Physical Exam Const: COMMON NORMALS: no acute distress GENERAL APPEARANCE: cooperative and comfortable ORIENTATION/CONSCIOUSNESS: Yes awake, Yes oriented to person, Yes oriented to place and Yes oriented to time HENMT: COMMON NORMALS: normocephalic, atraumatic and hearing grossly normal bilaterally HEAD & SCALP: normocephalic and atraumatic Neck/C-Spine: COMMON NORMALS: no JVD Resp: COMMON NORMALS: normal respiratory effort, No retractions, No use of accessory muscles and clear to auscultation bilaterally AUSCULTATION: clear to auscultation bilaterally Cardio: COMMON NORMALS: no JVD, regular rate, regular rhythm and No murmurs present (Cardio) RATE: regular rate RHYTHM: regular rhythm GI: COMMON NORMALS: Soft to palpation and No hepatosplenomegaly present AUSCULTATION: Yes normoactive bowel sounds PALPATION: Yes Soft to palpation, No Tenderness to palpation present (GI), No Guarding due to palpation present (GI) and Yes No hepatosplenomegaly present Extremity: COMMON NORMALS: normal to inspection, capillary refill normal, no clubbing, cyanosis or edema, no calf tenderness and no pedal edema Neuro: SENSORIUM/ORIENTATION: Yes oriented to person, Yes oriented to place and Yes oriented to time Skin: COMMON NORMALS: no rashes or lesions noted GENERAL SKIN EXAM: no rashes or lesions noted Course Vital Signs: Vital signs: Vital Signs Temperature 97.5 F L 06/30/20 06:51 Pulse Rate 68 06/30/20 07:41 Respiratory Rate 20 H 06/30/20 07:34 Blood Pressure 99/53 06/30/20 06:51 Pulse Oximetry 96 06/30/20 07:34 MDM - Weakness MDM Narrative: Medical decision making narrative: 1 comes back markedly elevated. No acute ST changes on the CT EKGs. Discussed with Dr. Levin and with hospitalist will admit. Also monitoring of his anemia and his COPD mild hyponatremia. Lab Data: Labs: Lab Results 06/29/20 06/29/20 06/29/20 Range/Units 08:36 08:36 08:36 WBC 8.6 (4.0-10.0) 10^3/ uL RBC 4.00 L (4.1-5.3) 10^6/u L Hgb 9.6 L (11.7-16.6) g/dL Hct 33.6 L (42.0-52.0) % MCV 84.0 (80-94) fL MCH 24.0 L (28.0-34.0) pg MCHC 28.6 L (30.0-36.0) g/dL RDW 21.2 H (12.1-15.1) % Plt Count 260 (130-400) 10^3/c mm MPV 9.5 (7.4-10.4) fL Neut % (Auto) 59.2 % Lymph % (Auto) 20.9 % [place] % (Auto) 14.0 % Eos % (Auto) 3.8 % Baso % (Auto) 1.5 % Neut # (Auto) 5.11 (1.8-7.7) 10^3/u L Lymph # (Auto) 1.8 (0.8-4.8) 10^3/u L [place] # (Auto) 1.2 H (0.2-0.9) 10^3/u L Eos # (Auto) 0.3 (0.0-0.8) 10^3/u L Baso # (Auto) 0.1 (0.0-0.1) 10^3/u L Nucleated RBC % (a uto) 0.2 % Nucleated RBCs # 0.0 /100WBC PT (12.1-14.9) SECO NDS INR (0.8-1.2) Sodium 131 L (136-145) mmol/L Potassium 3.8 (3.5-5.1) mmol/L Chloride 95 L (98-107) mmol/L Carbon Dioxide 24 (22-29) mmol/L Anion Gap 15.8 (5-19) BUN 34 H (8-23) mg/dL Creatinine 1.4 H (0.7-1.2) mg/dL GFR Calculation 51.5 L (90-130) mL/min Glucose 126 H (65-115) mg/dL Calculated Osmolal ity 281 L (285-295) mOsm/k g Calcium 8.6 (8.5-10.5) mg/dL Total Bilirubin 2.0 H (0.15-1.2) mg/dL AST 27 (0-40) U/L ALT 14 (0-41) U/L Alkaline Phosphata se 229 H (40-130) IU/L Creatine Kinase 97 (39-308) U/L Troponin T Baselin e 1660 H* (0-15) ng/L Troponin T 120 Min inupiat (0-15) ng/L Delta Troponin T (0-10) ABS# Total Protein 8.4 (6.6-8.7) g/dL Albumin 3.4 L (3.5-5.2) g/dL Globulin 5.0 H (1.3-4.6) g/dL Urine Color (Yellow) Urine Appearance (CLEAR) Urine pH (5-7) Ur Specific Gravit y (1.005-1.030) Urine Protein (Negative) Urine Glucose (UA) (Normal) Urine Ketones (Negative) Urine Blood (Negative) Urine Nitrate (Negative) Urine Bilirubin (Negative) Urine Urobilinogen (Negative) mg/dL Ur Leukocyte Shayna ase (Negative) 06/29/20 06/29/20 06/29/20 Range/Units 08:36 11:00 11:59 WBC (4.0-10.0) 10^3/ uL RBC (4.1-5.3) 10^6/u L Hgb (11.7-16.6) g/dL Hct (42.0-52.0) % MCV (80-94) fL MCH (28.0-34.0) pg MCHC (30.0-36.0) g/dL RDW (12.1-15.1) % Plt Count (130-400) 10^3/c mm MPV (7.4-10.4) fL Neut % (Auto) % Lymph % (Auto) % [place] % (Auto) % Eos % (Auto) % Baso % (Auto) % Neut # (Auto) (1.8-7.7) 10^3/u L Lymph # (Auto) (0.8-4.8) 10^3/u L [place] # (Auto) (0.2-0.9) 10^3/u L Eos # (Auto) (0.0-0.8) 10^3/u L Baso # (Auto) (0.0-0.1) 10^3/u L Nucleated RBC % (a uto) % Nucleated RBCs # /100WBC PT 18.80 H (12.1-14.9) SECO NDS INR 1.52 H (0.8-1.2) Sodium (136-145) mmol/L Potassium (3.5-5.1) mmol/L Chloride (98-107) mmol/L Carbon Dioxide (22-29) mmol/L Anion Gap (5-19) BUN (8-23) mg/dL Creatinine (0.7-1.2) mg/dL GFR Calculation (90-130) mL/min Glucose (65-115) mg/dL Calculated Osmolal ity (285-295) mOsm/k g Calcium (8.5-10.5) mg/dL Total Bilirubin (0.15-1.2) mg/dL AST (0-40) U/L ALT (0-41) U/L Alkaline Phosphata se (40-130) IU/L Creatine Kinase (39-308) U/L Troponin T Baselin e (0-15) ng/L Troponin T 120 Min inupiat 1414 H (0-15) ng/L Delta Troponin T -246 L (0-10) ABS# Total Protein (6.6-8.7) g/dL Albumin (3.5-5.2) g/dL Globulin (1.3-4.6) g/dL Urine Color Dark yellow (Yellow) Urine Appearance Clear (CLEAR) Urine pH 5 (5-7) Ur Specific Gravit y 1.025 (1.005-1.030) Urine Protein Neg (Negative) Urine Glucose (UA) Norm (Normal) Urine Ketones Negative (Negative) Urine Blood Neg (Negative) Urine Nitrate Negative (Negative) Urine Bilirubin 1+ H (Negative) Urine Urobilinogen 8 H (Negative) mg/dL Ur Leukocyte Shayna ase Negative (Negative) Discharge Plan Discharge Patient Disposition: Admitted As Inpatient Admit Provider: Grant Lamb Clinical Impression: NSTEMI (non-ST elevated myocardial infarction), Systolic congestive heart failure with reduced left ventricular function, NYHA class 4, Panlobular emphysema, Atrial fibrillation, Anemia, Hyponatremia Condition: Stable Coding Level of Care Code ED Cannon Crewmember for Ruma Conley
[2020-06-29 10:26] LABS: Alanine Aminotransferase 14 U/L (0-41); Albumin Level 3.4 g/dL (3.5-5.2); Alkaline Phosphatase 229 IU/L (40-130); Anion Gap 15.8 (5-19); Aspartate Amino Transferase 27 U/L (0-40); Blood Urea Nitrogen 34 mg/dL (8-23); Calcium 8.6 mg/dL (8.5-10.5); Carbon Dioxide 24 mmol/L (22-29); Chloride 95 mmol/L (98-107); Creatine Phosphokinase 97 U/L (39-308); Glomerular Filtration Rate 51.5 mL/min (90-130); Glucose 126 mg/dL (65-115); Osmolality Calculated 281 mOsm/kg (285-295); Potassium 3.8 mmol/L (3.5-5.1); Sodium 131 mmol/L (136-145); Total Protein 8.4 g/dL (6.6-8.7)
--- NOTE | 2020-06-29 10:40 | PC.PHAR ---
Addendum entered by Ramona Terry 06/29/20 10:47: PTS STATES THE PT IS TAKING AMIODRONE 100MG PO DAILY-[facility] HAS BEEN FILLING 200MG PO DAILY-[facility] STATES THE PT IS SUPPOSE TO BE TAKING THE 100MG PO DAILY FROM WHAT SHE SAW FROM PAST HISTORY CHANGED FROM 200MG TO 100MG ON 09/24/2019 Original Note: PTS STATES THE PT HASNT STARTED TAKING THE PLAVIX OR NYSTATIN-RXS ARE STILL AT [facility] WAITING TO BE PICKED UP-PTS STATES THE PT IS TAKING LASIX 80MG BID-[facility] STATES THAT RX IS ON HOLD LAST FILLED 05/05 30D/S FOR 40MG PO DAILY-PTS STATES THE PT IS TAKING THE METOLAZONE 2.5MG PO BID-[facility] LAST FILLED ON 06/03/20 5D/S-PTS STATES THE PT IS TAKING KCL 20MEQ TID [facility] STATES THAT RX IS ON HOLD LAST FILLED ON 04/05 30D/S FOR 20MEQ DAILY-PTS STATES THE PT IS TAKING SPIRONOLACTONE DAILY [facility] LAST FILLED ON 05/05/2020 30D/S-PTS STATES THE PT IS STILL TAKING ASPIRIN 81MG DAILY ON PTS DISCHARGE PAPERS FROM 06/24/20 THIS MEDICATION WAS SUPPOSED TO BE DCED
[2020-06-29 10:45] LABS: Troponin(5th) Baseline 1660 ng/L (0-15)
--- NOTE | 2020-06-29 11:26 | ECG_ITS ---
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 Measurements Intervals [place] Rate: 71 P: [place]: QRS: -57 QRSD: 114 T: 137 QT: 412 QTc: 450 Interpretive Statements ELECTRONIC VENTRICULAR PACEMAKER LOW QRS VOLTAGE [QRS DEFLECTION < 0.5/1.0 mV IN LIMB/CHEST LEADS] LEFT ANTERIOR FASCICULAR BLOCK [QRS AXIS <= -45, QR IN I, RS IN II] POSSIBLE ANTERIOR MYOCARDIAL INFARCTION , PROBABLY OLD [30 ms Q WAVE IN V3/V4, OR R < 0.2 mV IN V4] Compared to ECG 06/29/2020 09:22:13 Low QRS voltage now present Left anterior fascicular block now present Myocardial infarct finding now present Prolonged QT interval no longer present Electronically Signed On 06-29-2020 17:45:28 CARTON MAKER by Bert Angela M.D. [id number]
[2020-06-29 11:36] LABS: INR 1.52 (0.8-1.2)
[2020-06-29 11:41] LABS: Add Urine Microscopic? NO
[2020-06-29 11:43] LABS: Bilirubin Urine 1+ (Negative); Blood Urine Neg (Negative); Glucose Urine UA Norm (Normal); Ketones Urine Negative (Negative); Leukocyte Esterase Urine Negative (Negative); Nitrate Urine Negative (Negative); Protein Urine Neg (Negative); Specific Gravity, Urine 1.025 (1.005-1.030); Urine Appearance Clear (CLEAR); Urine Color Dark Yellow (Yellow); Urobilinogen Urine 8 mg/dL (Negative); pH Urine 5 (5-7)
[2020-06-29 12:50] LABS: Troponin 5 2HR 1414 ng/L (0-15)
[2020-06-29] MEDS: heparin 5,000 unit/mL INJ 1 mL 4000 UNIT IVP (13:01)
[2020-06-29] MEDS: clopidogrel 300 mg Tablet 600 MG PO (13:01)
--- NOTE | 2020-06-29 13:05 | PM.HP ---
Providers/Chief Complaint Primary Care Provider: Ahmet Jasso MD Chief Complaint: GENERAL WEAKNESS History of Present Illness Leroy Gautam is a 59 year old male with a past medical history of CAD, CVA, COPD, active smoker, hypertension, hyperlipidemia, CHF, atrial fibrillation on Coumadin, who was recently discharged for [facility] for a NSTEMI status post stenting to RCA who presents to [facility] due to fatigue, malaise, weakness. Patient states that since he got home from the hospital he felt generalized weakness,, some shortness of breath with exertion, no fevers, no chills, is a smoker, no cough, no known exposure to COVID-19, no chest pain, no palpitations, no lightheadedness, no dizziness. Patient tells there was a mixup in his medications and he forgot to picker packer his Plavix. He tells me that his arranges his medications, is not exactly sure what he is or is not taking. He tells me that he is fatigued with basic activities, he has no energy, no falls, no injuries, no bloody or black stools. Review of Systems Const: Reports: fatigue and malaise; Denies: fever(s) or chills Eyes: Denies: change in vision or blurry vision ENMT: Denies: nasal congestion Card: Denies: chest pain, palpitations, edema or lightheadedness Resp: Reports: wheezing; Denies: dyspnea, productive cough or non-productive cough GI: Denies: abdominal pain, nausea, vomiting, hematemesis, diarrhea, constipation, hematochezia or melena : Denies: flank pain, difficulty urinating, dysuria or urinary frequency Musc: Denies: neck pain or back pain Skin/Breast: Denies: rash Neuro: Denies: headache(s), dizziness or vertigo Psych: Denies: anxiety or depression Endo: Denies: polyuria or polydipsia Medications/Allergies Home Medications Medication Instructions Recorded Confirmed Last Taken Type nitroglycerin 0.4 mg sublingual 0.4 mg SUBLINGUAL Q5M PRN 05/01/19 06/29/20 06/22/20 History tablet albuterol sulfate 2.5 mg INHALATION Q4H PRN 07/17/19 06/29/20 02/07/20 History amiodarone 100 mg PO DAILY@09 12/09/19 06/29/20 06/22/20 History metoprolol succinate 50 mg PO BEDTIME@12/09/19 06/29/20 06/22/20 History Portable oxygen with concentrator #1 ea 01/16/20 06/29/20 Unknown Rx spironolactone [Aldactone] 25 mg PO DAILY@1600 04/10/20 06/29/20 06/22/20 History atorvastatin 40 mg tablet 40 mg PO BEDTIME@1999 #90 tab 05/05/20 06/29/20 06/22/20 Rx warfarin 2 mg tablet See Rx Instructions .ROUTE 06/03/20 06/29/20 06/22/20 Rx .COMPLEX #90 tab clopidogrel 75 mg PO DAILY #30 tab 06/24/20 06/29/20 Unknown Rx furosemide 80 mg PO BID@,06/24/20 06/29/20 06/22/20 History metolazone 2.5 mg PO BID@,06/24/20 06/29/20 06/22/20 History nystatin 1 applic TOPICAL BID #15 g 06/24/20 06/29/20 Unknown Rx potassium chloride 20 meq PO TID@,,06/24/20 06/29/20 06/22/20 History aspirin 325 mg PO PRN 06/29/20 06/29/20 Unknown History aspirin [Aspir-81] See Rx Instructions .ROUTE .COMPLEX 06/29/20 06/29/20 Unknown History levothyroxine 50 mcg PO DAILY@06/29/20 06/29/20 Unknown History Allergies Allergy/AdvReac Type Severity Reaction Status Date / Time No Known Allergies Allergy Verified 06/22/20 23:05 PFSH Acute PFSH: Medical History Anemia Atrial fibrillation CAD in [place] artery Cardiomyopathy CHF (congestive heart failure) CVA (cerebral vascular accident) HTN (hypertension) Hyperlipidemia Hypotension Hypothyroid Nicotine dependence, cigarettes, with unspecified nicotine-induced disorders Non-ST elevation [place] (NSTEMI) Orthostasis SALONI (obstructive sleep apnea) Pacemaker 2014- dual chamber Panlobular emphysema Paroxysmal A-fib PVD (peripheral vascular disease) Vitamin B12 deficiency Surgical History H/O coronary angioplasty 2013 H/O reduction of closed fracture ankle History of cardiac radiofrequency ablation (RFA) 61365 Hx of appendectomy S/P appendectomy Status cardiac pacemaker Family History Father Myocardial infarct Mother Myocardial infarct Other Family history of premature coronary artery disease Hypertension Social History Smoking and tobacco status: current every day smoker cigarettes Packs smoked per day: 0.5 Years cigarettes smoked: 40 [ Other cigarette details: Hx of 1PPD x 40 Years ] Quit status (tobacco): has tried quititng Second hand smoke exposure: Yes Smoking risk assessment/counseling performed?: Yes Alcohol intake: former Year of sobriety/quit date alcohol: 1980 Lives independently: Yes Household members: spouse Marital status: Current occupational status: disabled History of recent travel: No Current gender identity: Male Vitals/I&O/Wt Last Vital Signs Temp 97.8 F 06/29/20 09:15 Pulse 61 06/29/20 11:34 Resp 18 06/29/20 11:34 BP 111/83 06/29/20 11:34 Pulse Ox 97 06/29/20 11:34 Weight last 48 hrs Weight 127.006 kg Physical Exam Const: COMMON NORMALS: no acute distress and patient oriented x3 GENERAL APPEARANCE: cooperative and comfortable HENMT: COMMON NORMALS: normocephalic HEAD & SCALP: normocephalic Eye: COMMON NORMALS: Equal, round and reactive pupils present and EOMs intact bilaterally GENERAL EYE: appearance normal, both eyes and all related structures PUPIL: Yes Equal, round and reactive pupils present Neck/C-Spine: COMMON NORMALS: full ROM, no lymphadenopathy, no JVD and Thyroid normal THYROID: Thyroid normal Lymph: LYMPHATIC: no lymphadenopathy noted Resp: COMMON NORMALS: normal respiratory effort, No retractions, No use of accessory muscles and clear to auscultation bilaterally AUSCULTATION: wheezes left upper Cardio: COMMON NORMALS: no JVD, regular rate, regular rhythm, S1 normal heart sound present, S2 normal heart sound present, No gallops present (Cardio), No clicks present (Cardio) and No murmurs present (Cardio) RATE: regular rate RHYTHM: regular rhythm HEART SOUNDS: S1 normal heart sound present and S2 normal heart sound present GI: COMMON NORMALS: Normal to inspection, nondistended, normoactive bowel sounds present, Soft to palpation, non-tender and No hepatosplenomegaly present PALPATION: Yes Soft to palpation and Yes No hepatosplenomegaly present Extremity: COMMON NORMALS: normal to inspection, full ROM and no pedal edema Neuro: COMMON NORMALS: patient oriented x3, CN's II-XII intact bilaterally, moves all extremities and no focal motor deficits Psych: COMMON NORMALS: mental status grossly normal, Normal thought process present and cooperative THOUGHT PROCESS: Normal thought process present Data : 06/29/20 08:36 06/29/20 08:36 A&P Assessment and plan (1) NSTEMI (non-ST elevated myocardial infarction): -Patient states that he is not sure if he has been taking the Plavix -Creatinine 1.4 -Baseline troponin 1160 -EKG shows no acute ST-T wave changes Plan: -Admit to cardiac stepdown unit -Aspirin, statin, Plavix load -Heparin drip -Cardiology has been consulted -Monitor for chest pain, serial troponins, serial EKGs -Full code -Heparin for DVT prophylaxis Status: Acute (2) Weakness: -Etiology unclear, could be related to NSTEMI as above -Chest x-ray does show a developing infiltrate on the left heart border, no significant leukocytosis, afebrile, will check a pro-[place], CRP, blood cultures, sputum cultures -Hold off on antibiotics for now -PT OT Status: Acute (3) Systolic congestive heart failure with reduced left ventricular function, NYHA class 4: Status: Acute (4) Anemia: Hemoglobin 9.6, which is about his baseline Status: Acute Qualifiers: Anemia type: unspecified type Qualified Code(s): D64.9 - Anemia, unspecified (5) Hypothyroidism: Recheck TSH Status: Acute (6) Atrial fibrillation: Continue metoprolol, Coumadin on hold, as patient is on heparin drip Status: Acute Qualifiers: Atrial fibrillation type: persistent (not longstanding) Qualified Code(s): I48.19 - Other persistent atrial fibrillation (7) Panlobular emphysema: Status: Acute (8) SALONI (obstructive sleep apnea): Status: Acute Attestations Medical Necessity Statement*: Patient requires hospitalization, inpatient, for NSTEMI Coding Level of Care Code Acute Room Service Server for Chg Fwd Diagnoses NSTEMI (non-ST elevated myocardial infarction) I21.4 Weakness R53.1 Systolic congestive heart failure with reduced left ventricular function, NYHA class 4 I50.20 Anemia D64.9 Anemia type: unspecified type Hypothyroidism E03.9 Atrial fibrillation I48.19 Atrial fibrillation type: persistent (not longstanding) Panlobular emphysema J43.1 SALONI (obstructive sleep apnea) G47.33
[2020-06-29 15:22] LABS: Troponin 5 6HR 1210 ng/L (0-15)
--- NOTE | 2020-06-29 15:26 | ECG_ITS ---
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 Measurements Intervals [place] Rate: 67 P: [place]: QRS: -56 QRSD: 110 T: 127 QT: 422 QTc: 446 Interpretive Statements ATRIAL FIBRILLATION WITH ABERRANT CONDUCTION OR VENTRICULAR PREMATURE COMPLEXES MARKED LEFT AXIS DEVIATION [QRS AXIS < -30] LOW QRS VOLTAGE [QRS DEFLECTION < 0.5/1.0 mV IN LIMB/CHEST LEADS] ANTEROSEPTAL MYOCARDIAL INFARCTION [40+ ms Q WAVE IN V1-V4], PROBABLY OLD Compared to ECG 06/29/2020 11:56:10 Ventricular premature complex(es) now present Aberrant conduction of supraventricular beat(s) now present Left-axis deviation now present Ventricular-paced complex(es) or rhythm no longer present Left anterior fascicular block no longer present Myocardial infarct finding still present Electronically Signed On 06-29-2020 17:43:02 WELL POINT PUMPING SUPERVISOR by Bert Angela M.D. [id number]
[2020-06-29] MEDS: sodium chloride 0.9% 1,000 ML 100 ML IV (15:28)
[2020-06-29] MEDS: spironolactone 25 mg Tablet PO (15:29)
[2020-06-29 15:45] LABS: Partial Thromboplastin Time 36.9 SECONDS (23.9-36.7)
[2020-06-29 15:56] LABS: Procalcitonin 0.15 ng/mL (0-0.5); Thyroid Stimulating Hormone 14.06 uIU/mL (0.27-4.20)
[2020-06-29] MEDS: ipratropium-albuterol 3 mL Neb INHALATION (15:56)
[2020-06-29 16:07] LABS: Alanine Aminotransferase 13 U/L (0-41); Alkaline Phosphatase 206 IU/L (40-130); Aspartate Amino Transferase 26 U/L (0-40); C Reactive Protein 31.7 mg/L (0.0-4.9); Globulin 5.2 g/dL (1.3-4.6); Total Protein 8.2 g/dL (6.6-8.7)
[2020-06-29] MEDS: heparin drip 25,000 UNIT/500 ML PREMIX 36 UNIT IV (16:42)
[2020-06-29] MEDS: famotidine 20 mg Tablet PO (17:14)
--- NOTE | 2020-06-29 20:15 | PM.CONSULT ---
Providers/Reason For Consult Consulting Physican/Specialty*: Cardiology Reason for Consult*: Non-ST elevation HI, CHF, anemia, noncompliance Attending Physician: Grant Lamb MD Primary Care Provider: Ahmet Jasso MD History of Present Illness History of Present Illness Leroy Gautam is a 59 year old male has medical history significant for noncompliance with medicine and food which is the biggest issue in his health, systolic heart failure, coronary artery disease status post recent RCA stent for non-ST elevation HI, chronic kidney disease stage III, atrial fibrillation, history of ventricular tachycardia status post ICD, hypothyroidism, fungal infection presented with weakness shortness of breath PND orthopnea and in volume overload status. He was noted to have troponin of more than 1200 suggestive of non-ST elevation HI. No significant EKG changes, he was also appeared to be in decompensated systolic heart failure with BNP more than 3000, patient few days ago has been discharged after treating with distal RCA drug-eluting stent. Despite of our constant reminder and discussion with him by myself personally he did not take Plavix. Review of Systems Const: Reports: fatigue and malaise; Denies: fever(s) or chills Eyes: Denies: change in vision, blurry vision or photophobia ENMT: Denies: enlarged tonsils or nasal congestion Card: Denies: chest pain, palpitations, edema or lightheadedness Resp: Reports: wheezing; Denies: dyspnea, productive cough or non-productive cough GI: Denies: abdominal pain, nausea, vomiting, hematemesis, diarrhea, constipation, hematochezia or melena : Denies: flank pain, difficulty urinating, dysuria or urinary frequency Musc: Denies: neck pain, back pain or joint warmth Skin/Breast: Denies: rash Neuro: Denies: headache(s), dizziness or vertigo Psych: Denies: anxiety, depression or sleeping more Endo: Denies: polyuria or polydipsia All/Imm: Denies: acute wheezing Meds/Allergies Home Medications and Allergies Home Medications Medication Instructions Recorded Confirmed Last Taken Type nitroglycerin 0.4 mg sublingual 0.4 mg SUBLINGUAL Q5M PRN 05/01/19 06/29/20 06/22/20 History tablet albuterol sulfate 2.5 mg INHALATION Q4H PRN 07/17/19 06/29/20 02/07/20 History amiodarone 100 mg PO DAILY@12/09/19 06/29/20 06/22/20 History metoprolol succinate 50 mg PO BEDTIME@12/09/19 06/29/20 06/22/20 History Portable oxygen with concentrator #1 ea 01/16/20 06/29/20 Unknown Rx spironolactone [Aldactone] 25 mg PO DAILY@1600 04/10/20 06/29/20 06/22/20 History atorvastatin 40 mg tablet 40 mg PO BEDTIME@1999 #90 tab 05/05/20 06/29/20 06/22/20 Rx warfarin 2 mg tablet See Rx Instructions .ROUTE 06/03/20 06/29/20 06/22/20 Rx .COMPLEX #90 tab clopidogrel 75 mg PO DAILY #30 tab 06/24/20 06/29/20 Unknown Rx furosemide 80 mg PO BID@06/24/20 06/29/20 06/22/20 History metolazone 2.5 mg PO BID@06/24/20 06/29/20 06/22/20 History nystatin 1 applic TOPICAL BID #15 g 06/24/20 06/29/20 Unknown Rx potassium chloride 20 meq PO TID@,06/24/20 06/29/20 06/22/20 History aspirin 325 mg PO PRN 06/29/20 06/29/20 Unknown History aspirin [Aspir-81] See Rx Instructions .ROUTE .COMPLEX 06/29/20 06/29/20 Unknown History levothyroxine 50 mcg PO DAILY@06/29/20 06/29/20 Unknown History Allergies Allergy/AdvReac Type Severity Reaction Status Date / Time No Known Allergies Allergy Verified 06/22/20 23:05 Current Medications Current Medications Generic Name Dose Route Start Last Admin Trade Name Freq PRN Reason Stop Dose Admin Albuterol/Ipratropium 3 ml 06/29/20 14:25 06/29/20 15:56 Ipratropium-Albuterol 3 Ml Neb INHALATION 3 ml QID.RESPIRATORY CARLOS Administration Famotidine 20 mg 06/29/20 18:00 06/29/20 17:14 Famotidine 20 Mg Tablet PO 20 mg BID CARLOS Administration Heparin Sodium/Sodium Chloride 25,000 unit in 500 mls @ 0 mls/hr 06/29/20 12:00 06/29/20 16:42 Heparin Drip IV 14.17 unit/kg/hr .Q0M CARLOS 36 mls/hr Administration Protocol Per Protocol Sodium Chloride 1,000 mls @ 100 mls/hr 06/29/20 14:25 06/29/20 15:28 Sodium Chloride 0.9% IV 100 mls/hr .Q10H CARLOS Administration Spironolactone 25 mg 06/29/20 16:00 06/29/20 15:29 Spironolactone 25 Mg Tablet PO 25 mg DAILY@1600 CARLOS Administration PFSH Acute PFSH: Medical History Anemia Atrial fibrillation CAD in [place] artery Cardiomyopathy CHF (congestive heart failure) CVA (cerebral vascular accident) HTN (hypertension) Hyperlipidemia Hypotension Hypothyroid Nicotine dependence, cigarettes, with unspecified nicotine-induced disorders Non-ST elevation HI (NSTEMI) Orthostasis SALONI (obstructive sleep apnea) Pacemaker 2013- dual chamber Panlobular emphysema Paroxysmal A-fib PVD (peripheral vascular disease) Vitamin B12 deficiency Surgical History H/O coronary angioplasty 2013 H/O reduction of closed fracture ankle History of cardiac radiofrequency ablation (RFA) 17352 Hx of appendectomy S/P appendectomy Status cardiac pacemaker Family History Father Myocardial infarct Mother Myocardial infarct Other Family history of premature coronary artery disease Hypertension Social History Smoking and tobacco status: current every day smoker cigarettes Packs smoked per day: 0.5 Years cigarettes smoked: 40 [ Other cigarette details: Hx of 1PPD x 40 Years ] Quit status (tobacco): has tried quititng Second hand smoke exposure: Yes Smoking risk assessment/counseling performed?: Yes Alcohol intake: former Year of sobriety/quit date alcohol: 1980 Lives independently: Yes Household members: spouse Marital status: Current occupational status: disabled History of recent travel: No Current gender identity: Male Dietary Habits: Current diet type/program: regular Caffeine: Yes Caffeine intake frequency: carbonated beverages Number of carbonated beverage servings: 4 and tea Number of tea servings: 10 Exercise: What type of physical activity do you participate in?: none Safety: Seatbelt use: always Home Safety: Working smoke detector in home: Yes Fire extinguisher in home: Yes Carbon monoxide detector in home: Yes Personal Safety: Do you feel safe at home: Yes Vitals/I&O/Wt Last Vital Signs Temp 97.6 F 06/29/20 14:25 Pulse 68 06/29/20 16:05 Resp 16 06/29/20 15:59 BP 117/67 06/29/20 16:00 Pulse Ox 94 06/29/20 15:59 06/29/20 06/29/20 06/29/20 06:59 14:59 22:59 Output Total 250 / 250 Balance -250 / -250 Weight last 48 hrs Weight 299 lb 6.4 oz Weight 280 lb Physical Exam Narrative: EXAM NARRATIVE: GENERAL: Patient is alert, awake and oriented x3. Mild distress with shortness of breath. Disheveled. NECK: No jugular vein distension. Pallor HEENT: No cyanosis. No icterus. No pallor. HEART: Regular S1 and S2. No murmur, rub or gallop. LUNGS: Mild bibasal crepitus ABDOMEN: Mildly distended, nontender Positive bowel sounds. No guarding, rebound or tenderness. CENTRAL NERVOUS SYSTEM: Grossly nonfocal. EXTREMITIES: Lower extremities with 2+ edema bilaterally. Data Micro: Micro: Microbiology 06/29/20 14:47 Blood Culture - Pr eliminary Blood [facility] 06/29/20 14:46 Blood Culture - Pr eliminary Blood SPE[facility] A&P Assessment and plan (1) Systolic congestive heart failure with reduced left ventricular function, NYHA class 4: Patient has decompensated systolic heart failure we will start him on Bumex. Status: Acute (2) NSTEMI (non-ST elevated myocardial infarction): Appear to be stable. Patient remains noncompliant he is not having any chest pain possible he has completed infarct however therefore continue to treat him medically. Status: Acute (3) Atrial fibrillation: Continue amiodarone. Patient is rate controlled. Continue anticoagulation. INR is on the lower side I will bridge him with Lovenox Status: Acute Qualifiers: Atrial fibrillation type: persistent (not longstanding) Qualified Code(s): I48.19 - Other persistent atrial fibrillation (4) Pacemaker: Working in a good standing Status: Acute (5) Fungal infection of the groin: Continue statin Status: Acute (6) Anemia: Chronic anemia. Patient is on warfarin. We will start him on Protonix and continue to monitor Status: Acute Qualifiers: Anemia type: iron deficiency Iron deficiency anemia type: chronic blood loss Qualified Code(s): D50.0 - Iron deficiency anemia secondary to blood loss (chronic) (7) SALONI (obstructive sleep apnea): Continue CPAP Status: Acute (8) CKD (chronic kidney disease) stage 3, GFR 30-59 ml/min: Currently appears to be in decompensated state of heart failure with cardiorenal etiology will diurese and monitor creatinine Status: Acute Consult Attestations Medical Necessity Statement: Require continuation hospitalization for above defined. I am expecting his stay to cross more than 2 midnights Coding Level of Care Code New Pt Acute Walking Dragline Operator for Ruma Conley Patient Type New History Comprehensive Exam Comprehensive Medical Decision Making High Complexity Diagnoses Systolic congestive heart failure with reduced left ventricular function, NYHA class 4 I50.20 NSTEMI (non-ST elevated myocardial infarction) I21.4 Atrial fibrillation I48.19 Atrial fibrillation type: persistent (not longstanding) Pacemaker Z95.0 Fungal infection of the groin B35.6 Anemia D50.0 Anemia type: iron deficiency Iron deficiency anemia type: chronic blood loss SALONI (obstructive sleep apnea) G47.33 CKD (chronic kidney disease) stage 3, GFR 30-59 ml/min N18.30
[2020-06-29] MEDS: atorvastatin 40 mg Tablet PO (20:23)
[2020-06-29] MEDS: metoprolol succinate ER (24 HR) 50 mg Tablet PO (20:23)
--- NOTE | 2020-06-29 20:58 | PC.NURSE ---
NURSE NOTE: ASSUMPTION OF CARE: ASSUMED CARE OF PATIENT AT 1900 TODAY. PT ALERT AND ORIENTED X4, MOVES ALL EXTREMITIES AND FOLLOWS COMMANDS. DENIES PAIN SO FAR THIS SHIFT. PT C/O BEING HUNGRY. PLACED CALL TO DR. NAVARRO AND RECEIVED ORDERS FOR CARDIAC DIET NOW; NPO AFTER MIDNIGHT. PT FED AT THIS TIME. CURRENTLY EATING MEAL WITH NO FURTHER C/O.
[2020-06-29] MEDS: bumetanide 0.25 mg/mL SDV 4 mL 1 MG IV (23:16)
[2020-06-29] MEDS: potassium chloride ER 20 mEq Tablet PO (23:16)
[2020-06-29 23:22] LABS: Partial Thromboplastin Time 99.3 SECONDS (23.9-36.7)
[2020-06-30] VITALS (21 sets, daily range): BP systolic 99–118; BP diastolic 53–76; PULSE 60–78; RESP 13–20; TEMP 36.4–36.8; O2SAT 91–98
[2020-06-30] MEDS: sodium chloride 0.9% 1,000 ML 100 ML IV (01:36)
--- NOTE | 2020-06-30 05:39 | PC.NURSE ---
NURSE NOTE: SHIFT SUMMARY: PT ALERT AND ORIENTED X4, MOVES ALL EXTREMITIES AND FOLLOWS COMMANDS. VERY SOA WITH MINIMAL EXERTION. C/O INABILITY TO BREATH AT APPROXIMATELY 0230 THIS SHIFT. PT WAS SITTING UPRIGHT AND SLIGHTLY DOUBLED OVER. REPOSITIONED PT AND PLACED NC BACK ON AND PT STATED HE FELT BETTER . PT CONTINUALLY TAKING OFF NASAL CANNULA AND HEART LEADS. STOOD UP AND URINATED IN FLOOR. NASAL CANNULA ON THE FLOOR AT THE TIME PATIENT URINATED SO HE THREW IT IN THE TRASH. WHEN ASKED ORIENTATION QUESTIONS, PT ANSWERED APPROPRIATELY. DENIES PAIN. CALLED RT TO CHECK ON PATIENT, 02 SAT PER RT = 93% ON 3L PER NC. PT REFUSING TO WEAR CPAP. CURRENTLY RESTING WITH EYES CLOSED, RESP EVEN @ 22-24 BPM. ALL VS AND ASSESSMENTS CHARTED. WILL CONTINUE TO MONITOR.
[2020-06-30 06:30] LABS: Basophils # 0.1 10^3/uL (0.0-0.1); Basophils % 1.6 %; Eosinophils # 0.3 10^3/uL (0.0-0.8); Eosinophils % 3.2 %; Hematocrit 29.9 % (42.0-52.0); Hemoglobin 8.6 g/dL (11.7-16.6); Lymphocytes # 1.6 10^3/uL (0.8-4.8); Lymphocytes % 21.2 %; Mean Corpuscular HGB Conc 28.8 g/dL (30.0-36.0); Mean Corpuscular Hemoglobin 23.5 pg (28.0-34.0); Mean Corpuscular Volume 81.7 fL (80-94); Mean Platelet Volume 9.5 fL (7.4-10.4); Monocytes % 13.5 %; Neutrophils # 4.65 10^3/uL (1.8-7.7); Neutrophils % 60.1 %; Nucleated Red Blood Cells % 0.3 %; Platelet Count 242 10^3/cmm (130-400); Red Blood Count 3.66 10^6/uL (4.1-5.3); Red Cell Distribution Width 20.9 % (12.1-15.1); White Blood Count 7.7 10^3/uL (4.0-10.0)
[2020-06-30 06:51] LABS: Magnesium 1.8 mg/dL (1.7-2.3); Phosphorus 3.8 mg/dL (2.5-4.5)
[2020-06-30 06:52] LABS: Alanine Aminotransferase 12 U/L (0-41); Albumin Level 3.1 g/dL (3.5-5.2); Alkaline Phosphatase 211 IU/L (40-130); Aspartate Amino Transferase 26 U/L (0-40); Blood Urea Nitrogen 35 mg/dL (8-23); Calcium 8.4 mg/dL (8.5-10.5); Carbon Dioxide 22 mmol/L (22-29); Chloride 97 mmol/L (98-107); Estmated Average Glucose 100; Globulin 4.8 g/dL (1.3-4.6); Glomerular Filtration Rate 56.1 mL/min (90-130); Glucose 104 mg/dL (65-115); Hemoglobin A1C 5.1 % (4.0-6.0); Osmolality Calculated 276 mOsm/kg (285-295); Sodium 129 mmol/L (136-145); Total Bilirubin 2.1 mg/dL (0.15-1.2); Total Protein 7.9 g/dL (6.6-8.7)
[2020-06-30 06:54] LABS: INR 1.53 (0.8-1.2); Partial Thromboplastin Time 75.7 SECONDS (23.9-36.7)
[2020-06-30 07:01] LABS: NT Pro B Type Natriuretic Pept 3708 pg/mL (0-125)
[2020-06-30] MEDS: ipratropium-albuterol 3 mL Neb INHALATION ×4 (07:31→20:12)
--- NOTE | 2020-06-30 08:14 | PC.OT ---
OT EVALUATION COMPLETED. PATIENT HAS DIFFICULTY WITH LB DRESSING AND REQUIRES SBA/MINIMAL ASSISTANCE FROM SPOUSE. HE IS NOT INTERESTED IN LB DRESSING EQUIPMENT NOR FURTHER SKILLED OT. NO FURTHER OT SERVICES TO BE COMPLETED.
--- NOTE | 2020-06-30 08:37 | PC.NURSE ---
spoke with Dr venegas in regards to morning labs and current rate of IV maintenance fluids instructions to stop iv fluids at this time
[2020-06-30] MEDS: clopidogrel 75 mg Tablet PO (08:43)
[2020-06-30] MEDS: famotidine 20 mg Tablet PO ×2 (08:43→17:32)
[2020-06-30] MEDS: levothyroxine 50 mcg Tablet PO (08:44)
[2020-06-30] MEDS: aspirin 81 mg EC Tablet PO (08:44)
--- NOTE | 2020-06-30 09:06 | PC.CHAP ---
Pastoral Care Encounter/Spiritual Assessment Type of Contact [] Declined driver messenger visit [] Patient/Family/Request visit [] Outpatient visit [] Follow-up visit [] Physician referral [] Code/Alert [x] Routine visit [] Staff referral [] Actively dying [] Patient sleeping [] Family support [] [] Out of room [] Palliative care [] [] Receiving care in room [] Pre-surgical visit [] Trauma [] Long length of stay [] ICU visit [] Other: Relational/Emotional Strength [] Patient feels connected with others/family/visitors/staff [] Distress [] Loneliness/isolation [] Abandonment Spirituality of Patient [] Person of Nano [] Attends Scientology of their Nano [] Believes in Prayer [] Reads Bible or Presybeterian materials [] There are Spiritual issues to be addressed Acid Polymerization Operator Interventions [x] Prayer [x] Active listening [x] Non-anxious presence [x] Spiritual/emotional support [] Crisis/trauma care [] Spiritual counseling [] Bereavement support [] Provided bereavement packet [] Provided Bible/devotional materials [] Provided toy/stuffed animal, coloring book to patient or family member [] Provided Communion [] Anointing/[place] [] Salvation [x] Completed spiritual assessment [] Other: Impact on Illness or Injury [] Angry [] Fearful [] Anxious [] Often cries [] Exhaustion [] Unable to work [] Unable to attend mormon [] Unable to walk/stand [] Unable to read [] Unable to drive [] Unable to eat/drink [] Unable to sleep [] Unable to be with family [] Patient intubated [] Other: Summary patient upset.. went home couple of days ago and back again with weakness and confusion... Acid Polymerization Operator assured patient she is available 27/11 if need be... Time spent with patient 15 min
[2020-06-30] MEDS: heparin drip 25,000 UNIT/500 ML PREMIX 25 UNIT IV (09:27)
[2020-06-30] MEDS: enoxaparin 100 mg/mL Syringe SUBCUT ×2 (12:26→23:58)
[2020-06-30] MEDS: enoxaparin 30 mg/0.3 mL Syringe SUBCUT ×2 (12:26→23:58)
[2020-06-30] MEDS: bumetanide 0.25 mg/mL SDV 10 mL 2 MG IVP ×2 (12:40→17:50)
--- NOTE | 2020-06-30 14:48 | P.PN_ITS ---
Subjective Subjective: Interval history: Patient was seen this morning, no episode of chest pain overnight, he is weakness is persistent to some degree, has some complaints of shortness of breath Vitals/I&O/Wt Last Vital Signs Temp 97.5 F L 06/30/20 11:24 Pulse 62 06/30/20 14:00 Resp 18 06/30/20 11:45 BP 116/63 06/30/20 11:24 Pulse Ox 95 06/30/20 11:45 06/29/20 06/30/20 06/30/20 22:59 06:59 14:59 Intake Total 480 / 480 1733.8 / 2213.8 1247.033 / 1247.033 Output Total 650 / 650 400 / 1050 150 / 150 Balance -170 / -170 1333.8 / 1163.8 1097.033 / 1097.033 Weight last 48 hrs Weight 135.806 kg Weight 127.006 kg Physical Exam Const: COMMON NORMALS: no acute distress and patient oriented x3 HENMT: COMMON NORMALS: normocephalic HEAD & SCALP: normocephalic Neck/C-Spine: COMMON NORMALS: no JVD Resp: COMMON NORMALS: normal respiratory effort, No retractions, No use of accessory muscles and clear to auscultation bilaterally AUSCULTATION: clear to auscultation bilaterally Cardio: COMMON NORMALS: no JVD, regular rate, regular rhythm, S1 normal heart sound present and S2 normal heart sound present RATE: regular rate RHYTHM: regular rhythm HEART SOUNDS: S1 normal heart sound present and S2 normal heart sound present GI: COMMON NORMALS: Normal to inspection, nondistended, normoactive bowel sounds present, Soft to palpation, non-tender, No hepatosplenomegaly present, no masses and no bruits PALPATION: Yes Soft to palpation and Yes No hepatosplenomegaly present Extremity: COMMON NORMALS: capillary refill normal, no clubbing, cyanosis or edema, no calf tenderness and no pedal edema Neuro: COMMON NORMALS: patient oriented x3 Psych: COMMON NORMALS: mental status grossly normal Data : 06/30/20 06:02 06/30/20 06:02 Micro: Microbiology 06/29/20 14:47 Blood Culture - Preliminary Blood SPECIMEN COLLECTED 06/29/20 14:46 Blood Culture - Preliminary Blood SPECIMEN COLLECTED A&P Assessment and plan (1) NSTEMI (non-ST elevated myocardial infarction): -Patient states that he is not sure if he has been taking the Plavix -Creatinine 1.3 -Baseline troponin 1160 -EKG shows no acute ST-T wave changes Plan: -Admit to cardiac stepdown unit -Aspirin, statin, Plavix -Switch to therapeutic Lovenox -Cardiology has been consulted -Monitor for chest pain, serial EKGs -Plan on diuretic therapy for fluid overload -Full code -Heparin for DVT prophylaxis Status: Acute (2) Weakness: -Etiology unclear, could be related to NSTEMI as above -Chest x-ray does show a developing infiltrate on the left heart border, no significant leukocytosis, afebrile, pro-[place] within normal limits CRP within normal limits follow blood cultures, sputum cultures -Hold off on antibiotics for now -PT OT Status: Acute (3) Systolic congestive heart failure with reduced left ventricular function, NYHA class 4: Will receive diuretic therapy today Status: Acute (4) Anemia: Hemoglobin 9.6, which is about his baseline Status: Acute (5) Hypothyroidism: TSH 14, his levothyroxine dose was increased on last admission a few days ago, continue to monitor Status: Acute (6) Atrial fibrillation: Continue metoprolol, Coumadin on hold, as patient is on heparin drip Status: Acute (7) Panlobular emphysema: Status: Acute (8) SALONI (obstructive sleep apnea): Status: Acute Additional A&P Information Patient does have elevated bilirubin levels, 2.1, no transaminitis, will do a liver ultrasound Attestations Medical Necessity Statement*: Patient requires hospitalization for NSTEMI, systolic CHF Coding Level of Care Code Acute Social Welfare Administrator for [facility] Fwd Diagnoses NSTEMI (non-ST elevated myocardial infarction) I21.4 Weakness R53.1 Systolic congestive heart failure with reduced left ventricular function, NYHA class 4 I50.20 Anemia D64.9 Hypothyroidism E03.9 Atrial fibrillation I48.91 Panlobular emphysema J43.1 SALONI (obstructive sleep apnea) G47.33
[2020-06-30] MEDS: spironolactone 25 mg Tablet PO (15:22)
[2020-06-30] MEDS: potassium chloride ER 20 mEq Tablet PO (17:32)
--- NOTE | 2020-06-30 19:26 | PM.PN ---
Subjective Subjective: Interval history: Patient did not diuresed well troponin peaked at 1600. Says feeling slightly better shortness of breath tillman denies any chest pain. Patient was restarted on Plavix Medications: Reviewed: Yes Vitals/I&O/Wt Last Vital Signs Temp 97.5 F L 06/30/20 15:17 Pulse 62 06/30/20 16:36 Resp 16 06/30/20 16:28 BP 118/76 06/30/20 15:17 Pulse Ox 94 06/30/20 16:28 06/30/20 06/30/20 06/30/20 06:59 14:59 22:59 Intake Total 1733.8 / 2213.8 1247.033 / 1247.033 800 / 2047.033 Output Total 400 / 1050 150 / 150 150 / 300 Balance 1333.8 / 1163.8 1097.033 / 1097.033 650 / 1747.033 Weight last 48 hrs Weight 299 lb 6.4 oz Weight 280 lb Physical Exam Narrative: EXAM NARRATIVE: GENERAL: Patient is alert, awake and oriented x3. Mild distress with shortness of breath. Disheveled. NECK: No jugular vein distension. Pallor HEENT: No cyanosis. No icterus. No pallor. HEART: Regular S1 and S2. No murmur, rub or gallop. LUNGS: Mild bibasal crepitus ABDOMEN: Mildly distended, nontender Positive bowel sounds. No guarding, rebound or tenderness. CENTRAL NERVOUS SYSTEM: Grossly nonfocal. EXTREMITIES: Lower extremities with 2+ edema bilaterally. Data : 06/30/20 06:02 06/30/20 06:02 Micro: Microbiology 06/29/20 14:47 Blood Culture - Preliminary Blood NEGATIVE TO DATE 06/29/20 14:46 Blood Culture - Preliminary Blood NEGATIVE TO DATE A&P Assessment and plan (1) Systolic congestive heart failure with reduced left ventricular function, NYHA class 4: Continues to be decompensated state of heart failure will increase Bumex to 2 mg twice a day. Status: Acute (2) NSTEMI (non-ST elevated myocardial infarction): Patient is stable will manage conservatively at this point I would not like to take him to the Credentialing Specialist as he may have completed infarct, renal function has deteriorated with creatinine around 1.3 plus he is noncompliant and appear to be stable therefore will manage medically Status: Acute (3) Atrial fibrillation: Continue current regimen we will bridge him with Lovenox Status: Acute Qualifiers: Atrial fibrillation type: persistent (not longstanding) Qualified Code(s): I48.19 - Other persistent atrial fibrillation (4) Pacemaker: Working in a good standing Status: Acute (5) Fungal infection of the groin: Continue statin Status: Acute (6) Anemia: Chronic anemia. Patient is on warfarin. We will start him on Protonix and continue to monitor Status: Acute Qualifiers: Anemia type: iron deficiency Iron deficiency anemia type: chronic blood loss Qualified Code(s): D50.0 - Iron deficiency anemia secondary to blood loss (chronic) (7) SALONI (obstructive sleep apnea): Continue CPAP Status: Acute (8) CKD (chronic kidney disease) stage 3, GFR 30-59 ml/min: Currently appears to be in decompensated state of heart failure with cardiorenal etiology will diurese and monitor creatinine Status: Acute Attestations Medical Necessity Statement*: Patient require continuation hospitalization for above defined care. Coding Level of Care Code Established Pt Acute Technical Support Agent for Ruma Conley Patient Type Established History Detailed Exam Detailed Medical Decision Making Moderate Complexity Diagnoses Systolic congestive heart failure with reduced left ventricular function, NYHA class 4 I50.20 NSTEMI (non-ST elevated myocardial infarction) I21.4 Atrial fibrillation I48.19 Atrial fibrillation type: persistent (not longstanding) Pacemaker Z95.0 Fungal infection of the groin B35.6 Anemia D50.0 Anemia type: iron deficiency Iron deficiency anemia type: chronic blood loss SALONI (obstructive sleep apnea) G47.33 CKD (chronic kidney disease) stage 3, GFR 30-59 ml/min N18.30
[2020-06-30] MEDS: atorvastatin 40 mg Tablet PO (20:35)
[2020-06-30] MEDS: metoprolol succinate ER (24 HR) 50 mg Tablet PO (20:35)
--- NOTE | 2020-06-30 21:22 | PC.NURSE ---
PT IS RESTING IN BED. PT DENIES PAIN AT THIS TIME. WILL CONTINUE TO MONITOR.
[2020-07-01] VITALS (15 sets, daily range): BP systolic 96–121; BP diastolic 47–88; PULSE 61–88; RESP 14–21; TEMP 36.5–36.8; O2SAT 92–96
[2020-07-01 05:12] LABS: Basophils # 0.2 10^3/uL (0.0-0.1); Basophils % 1.7 %; Eosinophils # 0.2 10^3/uL (0.0-0.8); Eosinophils % 2.6 %; Hematocrit 30.4 % (42.0-52.0); Hemoglobin 8.7 g/dL (11.7-16.6); Lymphocytes # 1.9 10^3/uL (0.8-4.8); Lymphocytes % 21.2 %; Mean Corpuscular HGB Conc 28.6 g/dL (30.0-36.0); Mean Corpuscular Hemoglobin 23.6 pg (28.0-34.0); Mean Corpuscular Volume 82.6 fL (80-94); Mean Platelet Volume 9.7 fL (7.4-10.4); Monocytes # 1.3 10^3/uL (0.2-0.9); Neutrophils # 5.18 10^3/uL (1.8-7.7); Neutrophils % 59.2 %; Nucleated Red Blood Cells % 0 %; Platelet Count 251 10^3/cmm (130-400); Red Blood Count 3.68 10^6/uL (4.1-5.3); Red Cell Distribution Width 20.8 % (12.1-15.1); White Blood Count 8.8 10^3/uL (4.0-10.0)
[2020-07-01 05:24] LABS: Alanine Aminotransferase 12 U/L (0-41); Albumin Level 3.3 g/dL (3.5-5.2); Alkaline Phosphatase 208 IU/L (40-130); Anion Gap 13.9 (5-19); Aspartate Amino Transferase 26 U/L (0-40); Blood Urea Nitrogen 38 mg/dL (8-23); Calcium 8.6 mg/dL (8.5-10.5); Carbon Dioxide 23 mmol/L (22-29); Chloride 96 mmol/L (98-107); Glomerular Filtration Rate 41.2 mL/min (90-130); Glucose 89 mg/dL (65-115); Osmolality Calculated 277 mOsm/kg (285-295); Potassium 3.9 mmol/L (3.5-5.1); Sodium 129 mmol/L (136-145); Total Protein 8.3 g/dL (6.6-8.7)
[2020-07-01 05:25] LABS: INR 1.44 (0.8-1.2)
[2020-07-01 05:40] LABS: Magnesium 1.8 mg/dL (1.7-2.3); Phosphorus 3.9 mg/dL (2.5-4.5)
--- NOTE | 2020-07-01 06:10 | PC.NURSE ---
PT STATES THAT THEY ARE READY TO GO HOME. PT IS SOB WITH EXERTION. PT DENIES PAIN AT THIS TIME. WILL CONTINUE TO MONITOR.
[2020-07-01] MEDS: aspirin 81 mg EC Tablet PO (08:21)
[2020-07-01] MEDS: famotidine 20 mg Tablet PO ×2 (08:21→17:10)
[2020-07-01] MEDS: amiodarone 200 mg Tablet 100 MG PO (08:22)
[2020-07-01] MEDS: bumetanide 0.25 mg/mL SDV 10 mL 2 MG IVP ×2 (08:22→17:10)
[2020-07-01] MEDS: potassium chloride ER 20 mEq Tablet PO ×2 (08:22→17:10)
[2020-07-01] MEDS: levothyroxine 50 mcg Tablet PO (08:22)
[2020-07-01] MEDS: clopidogrel 75 mg Tablet PO (08:22)
[2020-07-01] MEDS: ipratropium-albuterol 3 mL Neb INHALATION ×3 (08:29→15:50)
--- NOTE | 2020-07-01 10:15 | XR_ITS ---
WS: [id number] Exam: XR chest 2V insp/exp [id number] Date/Time of Exam: 07/01/2020 11:19 AM Reason For Exam: shob / cough Comparison 06/29/2020. Cardiac enlargement noted. Increased pulmonary vascularity. Coarsening of interstitial markings throu ghout both lungs probably chronic. Previously suspected infiltrate along the left heart border on the last exam is not noted on today's study. No pleural effusions. The lungs are fully inflated. A Upshot cardiac pacer superimposes the left chest. XR/XR chest 2V insp/exp [id number] IMPRESSION: 1. Previously suspected infiltrate along the left heart border is not identifie d on today's exam. 2. Cardiac enlargement with increased pulmonary vascularity unchanged. 3. Coarsening of interstitial markings throughout both lungs probably represent ing chronic interstitial lung disease.
--- NOTE | 2020-07-01 11:16 | P.PN_ITS ---
Subjective Subjective: Interval history: This morning patient was examined, he sitting up to the side of the bed, enjoying strawberries, he is on 3 L nasal cannula, does have some complaints of edema and some shortness of breath with exertion, but overall doing well, his fatigue has improved somewhat Vitals/I&O/Wt Last Vital Signs Temp 97.7 F 07/01/20 11:03 Pulse 76 07/01/20 11:03 Resp 19 H 07/01/20 11:03 BP 112/58 07/01/20 11:03 Pulse Ox 95 07/01/20 11:03 06/30/20 07/01/20 07/01/20 22:59 06:59 14:59 Intake Total 860 / 2107.033 360 / 360 Output Total 150 / 300 750 / 1050 120 / 120 Balance 710 / 1807.033 -750 / 1057.033 240 / 240 Weight last 48 hrs Weight 135.806 kg Physical Exam Const: COMMON NORMALS: no acute distress and patient oriented x3 HENMT: COMMON NORMALS: normocephalic HEAD & SCALP: normocephalic Neck/C-Spine: COMMON NORMALS: no JVD Resp: COMMON NORMALS: normal respiratory effort, No retractions, No use of accessory muscles and clear to auscultation bilaterally AUSCULTATION: clear to auscultation bilaterally Cardio: COMMON NORMALS: no JVD, regular rate, regular rhythm, S1 normal heart sound present and S2 normal heart sound present RATE: regular rate RHYTHM: regular rhythm HEART SOUNDS: S1 normal heart sound present and S2 normal heart sound present GI: COMMON NORMALS: Normal to inspection, nondistended, normoactive bowel sounds present, Soft to palpation, non-tender, No hepatosplenomegaly present, no masses and no bruits PALPATION: Yes Soft to palpation and Yes No hepatosplenomegaly present Extremity: COMMON NORMALS: capillary refill normal, no clubbing, cyanosis or edema and no calf tenderness NARRATIVE EXTREMITY EXAM: 1+ edema Neuro: COMMON NORMALS: patient oriented x3 Psych: COMMON NORMALS: mental status grossly normal Data : 07/01/20 04:15 07/01/20 04:15 Micro: Microbiology 06/29/20 14:47 Blood Culture - Preliminary Blood NEGATIVE TO DATE 06/29/20 14:46 Blood Culture - Preliminary Blood NEGATIVE TO DATE A&P Assessment and plan (1) NSTEMI (non-ST elevated myocardial infarction): -Patient states that he is not sure if he has been taking the Plavix -Creatinine 1.7 -Baseline troponin 1160, 6-hour 1210, delta -246 -EKG shows no acute ST-T wave changes Plan: -Admit to cardiac stepdown unit -Aspirin, statin, Plavix -On therapeutic Lovenox -Cardiology has been consulted -Monitor for chest pain, serial EKGs -Currently receiving diuretic therapy for fluid overload -Full code -Heparin for DVT prophylaxis Status: Acute (2) Weakness: -Etiology unclear, could be related to NSTEMI as above -Chest x-ray does show a developing infiltrate on the left heart border, no significant leukocytosis, afebrile, pro-Louis within normal limits CRP within normal limits follow blood cultures, sputum cultures -Hold off on antibiotics for now -PT OT Status: Acute (3) Systolic congestive heart failure with reduced left ventricular function, NYHA class 4: Will receive diuretic therapy today Status: Acute (4) Anemia: Hemoglobin 9.6, which is about his baseline Status: Acute Qualifiers: Anemia type: iron deficiency Iron deficiency anemia type: chronic blood loss Qualified Code(s): D50.0 - Iron deficiency anemia secondary to blood loss (chronic) (5) Hypothyroidism: TSH 14, his levothyroxine dose was increased on last admission a few days ago, continue to monitor Status: Acute (6) Atrial fibrillation: Continue metoprolol, Coumadin on hold, as patient is on heparin drip Status: Acute Qualifiers: Atrial fibrillation type: persistent (not longstanding) Qualified Code(s): I48.19 - Other persistent atrial fibrillation (7) Panlobular emphysema: Status: Acute (8) SALONI (obstructive sleep apnea): Status: Acute (9) Hepatomegaly: -Liver ultrasound does show hepatomegaly with diffuse fatty infiltration -Does have chronically elevated bilirubin, 2.1 today -INR 1.44, albumin 3.3, AST 26, ALT 12, hemoglobin 8.6 -I have ordered HARLEEN, ferritin, acute hepatitis panel -Will require an outpatient follow-up for gastroenterology for liver biopsy Status: Acute Attestations Medical Necessity Statement*: Patient requires hospitalization for fluid overload, NSTEMI, requiring inpatient diuresis Coding Level of Care Code Acute Machine Pan Greaser for [facility] Fwd Diagnoses NSTEMI (non-ST elevated myocardial infarction) I21.4 Weakness R53.1 Systolic congestive heart failure with reduced left ventricular function, NYHA class 4 I50.20 Anemia D50.0 Anemia type: iron deficiency Iron deficiency anemia type: chronic blood loss Hypothyroidism E03.9 Atrial fibrillation I48.19 Atrial fibrillation type: persistent (not longstanding) Panlobular emphysema J43.1 SALONI (obstructive sleep apnea) G47.33 Hepatomegaly R16.0
--- NOTE | 2020-07-01 11:32 | US_ITS ---
WS: [id number] ULTRASOUND ABDOMEN CLINICAL INFORMATION: liver cirhosis COMPARISON: None. FINDINGS: Technically difficult examination due to body habitus. Liver Size: Enlarged Craniocaudal length: 17.9 cm. Echogenicity: Coarse Surface nodularity: None. Mass (size and location): None. Normal main portal vein flow. Ascites: Small amount of perihepatic ascites US/US liver [id number] IMPRESSION: 1. Hepatomegaly with diffuse fatty infiltration. 2. Liver measures 17.9 cm craniocaudal. 3. No intrahepatic biliary ductal dilatation.
[2020-07-01 12:38] LABS: Ferritin 54 ng/mL (30-400)
[2020-07-01 12:53] LABS: Hepatitis A Antibody IgM Non-Reactive (Nonreactive); Hepatitis B Core IgM Non-Reactive (Nonreactive); Hepatitis B Surface Antigen Non-Reactive (Nonreactive); Hepatitis C Virus Antibody Non-Reactive (Nonreactive)
[2020-07-01] MEDS: enoxaparin 100 mg/mL Syringe SUBCUT (13:14)
[2020-07-01] MEDS: enoxaparin 30 mg/0.3 mL Syringe SUBCUT (13:14)
--- NOTE | 2020-07-01 15:42 | PC.RESP ---
SMOKING CESSATION INFORMATION SENT TO PATIENT.
[2020-07-01] MEDS: spironolactone 25 mg Tablet PO (17:11)
--- NOTE | 2020-07-01 18:45 | PC.NURSE ---
Transferred to room 276-1 in wheelchair with O2 on at 3L/NC
--- NOTE | 2020-07-01 19:19 | P.PN_ITS ---
Subjective Subjective: Interval history: Says still not feeling good still short of breath he has diuresed reasonably creatinine is slightly more some Medications: Reviewed: Yes Vitals/I&O/Wt Last Vital Signs Temp 98.2 F 07/01/20 18:52 Pulse 70 07/01/20 18:52 Resp 14 07/01/20 18:52 BP 112/74 07/01/20 18:52 Pulse Ox 94 07/01/20 18:52 07/01/20 07/01/20 07/01/20 06:59 14:59 22:59 Intake Total 600 / 600 Output Total 750 / 1050 260 / 260 970 / 1230 Balance -750 / 1057.033 340 / 340 -970 / -630 Physical Exam Narrative: EXAM NARRATIVE: GENERAL: Patient is alert, awake and oriented x3. Mild distress with shortness of breath. Disheveled. NECK: No jugular vein distension. Pallor HEENT: No cyanosis. No icterus. No pallor. HEART: Regular S1 and S2. No murmur, rub or gallop. LUNGS: Mild bibasal crepitus ABDOMEN: Mildly distended, nontender Positive bowel sounds. No guarding, rebound or tenderness. CENTRAL NERVOUS SYSTEM: Grossly nonfocal. EXTREMITIES: Lower extremities with 1+ edema bilaterally. Data : 07/01/20 04:15 07/01/20 04:15 Micro: Microbiology 06/29/20 14:47 Blood Culture - Preliminary Blood NEGATIVE TO DATE 06/29/20 14:46 Blood Culture - Preliminary Blood NEGATIVE TO DATE A&P Assessment and plan (1) Systolic congestive heart failure with reduced left ventricular function, NYHA class 4: He has improved slightly from heart failure tillman we will continue diuresis Status: Acute (2) NSTEMI (non-ST elevated myocardial infarction): Continue to treat conservatively. Denies any chest pain. Status: Acute (3) Atrial fibrillation: Continue current regimen we will bridge him with Lovenox Status: Acute Qualifiers: Atrial fibrillation type: persistent (not longstanding) Qualified Code(s): I48.19 - Other persistent atrial fibrillation (4) Pacemaker: Working in a good standing Status: Acute (5) Fungal infection of the groin: Continue statin Status: Acute (6) Anemia: Chronic anemia. Patient is on warfarin. We will start him on Protonix and continue to monitor Status: Acute Qualifiers: Anemia type: iron deficiency Iron deficiency anemia type: chronic blood loss Qualified Code(s): D50.0 - Iron deficiency anemia secondary to blood loss (chronic) (7) SALONI (obstructive sleep apnea): Continue CPAP Status: Acute (8) CKD (chronic kidney disease) stage 3, GFR 30-59 ml/min: Currently appears to be in decompensated state of heart failure with cardiorenal etiology will diurese and monitor creatinine Status: Acute Attestations Medical Necessity Statement*: Patient require continued hospitalization for above defined care. Coding Level of Care Code Established Pt Acute Cath Lab Nurse for Ruma Conley Patient Type Established History Detailed Exam Detailed Medical Decision Making Moderate Complexity Diagnoses Systolic congestive heart failure with reduced left ventricular function, NYHA class 4 I50.20 NSTEMI (non-ST elevated myocardial infarction) I21.4 Atrial fibrillation I48.19 Atrial fibrillation type: persistent (not longstanding) Pacemaker Z95.0 Fungal infection of the groin B35.6 Anemia D50.0 Anemia type: iron deficiency Iron deficiency anemia type: chronic blood loss SALONI (obstructive sleep apnea) G47.33 CKD (chronic kidney disease) stage 3, GFR 30-59 ml/min N18.30
[2020-07-01] MEDS: metoprolol succinate ER (24 HR) 50 mg Tablet PO (20:21)
[2020-07-01] MEDS: atorvastatin 40 mg Tablet PO (20:21)
[2020-07-02] VITALS (10 sets, daily range): BP systolic 99–125; BP diastolic 64–79; PULSE 62–90; RESP 17–20; TEMP 36.4–36.6; O2SAT 92–100
[2020-07-02] MEDS: enoxaparin 30 mg/0.3 mL Syringe SUBCUT ×2 (00:57→23:40)
[2020-07-02] MEDS: enoxaparin 100 mg/mL Syringe SUBCUT ×2 (00:57→23:40)
[2020-07-02 05:35] LABS: Basophils # 0.1 10^3/uL (0.0-0.1); Basophils % 1.4 %; Eosinophils # 0.3 10^3/uL (0.0-0.8); Eosinophils % 3.3 %; Hematocrit 31.2 % (42.0-52.0); Lymphocytes # 1.7 10^3/uL (0.8-4.8); Lymphocytes % 19.8 %; Mean Corpuscular HGB Conc 28.8 g/dL (30.0-36.0); Mean Corpuscular Hemoglobin 23.8 pg (28.0-34.0); Mean Corpuscular Volume 82.5 fL (80-94); Mean Platelet Volume 9.6 fL (7.4-10.4); Monocytes # 1.1 10^3/uL (0.2-0.9); Monocytes % 13.3 %; Neutrophils % 61.8 %; Nucleated Red Blood Cells % 0 %; Platelet Count 244 10^3/cmm (130-400); Red Blood Count 3.78 10^6/uL (4.1-5.3); Red Cell Distribution Width 21.1 % (12.1-15.1); White Blood Count 8.4 10^3/uL (4.0-10.0)
[2020-07-02 05:40] LABS: INR 1.51 (0.8-1.2)
[2020-07-02 05:42] LABS: Partial Thromboplastin Time 43.9 SECONDS (23.9-36.7)
[2020-07-02 05:50] LABS: Alanine Aminotransferase 12 U/L (0-41); Alkaline Phosphatase 213 IU/L (40-130); Aspartate Amino Transferase 25 U/L (0-40); Blood Urea Nitrogen 36 mg/dL (8-23); Calcium 8.6 mg/dL (8.5-10.5); Carbon Dioxide 26 mmol/L (22-29); Chloride 93 mmol/L (98-107); Globulin 5.2 g/dL (1.3-4.6); Glomerular Filtration Rate 51.5 mL/min (90-130); Glucose 88 mg/dL (65-115); Potassium 3.8 mmol/L (3.5-5.1); Total Bilirubin 1.9 mg/dL (0.15-1.2); Total Protein 8.2 g/dL (6.6-8.7)
[2020-07-02 05:58] LABS: Osmolality Calculated 286 mOsm/kg (285-295); Sodium 134 mmol/L (136-145)
[2020-07-02 06:08] LABS: Anion Gap 18.8 (5-19); Magnesium 1.6 mg/dL (1.7-2.3); Phosphorus 3.1 mg/dL (2.5-4.5)
[2020-07-02] MEDS: potassium chloride ER 20 mEq Tablet PO ×3 (08:27→20:07)
[2020-07-02] MEDS: aspirin 81 mg EC Tablet PO (08:27)
[2020-07-02] MEDS: levothyroxine 50 mcg Tablet PO (08:27)
[2020-07-02] MEDS: famotidine 20 mg Tablet PO ×2 (08:27→18:29)
[2020-07-02] MEDS: clopidogrel 75 mg Tablet PO (08:28)
[2020-07-02] MEDS: amiodarone 200 mg Tablet 100 MG PO (08:28)
[2020-07-02] MEDS: magnesium oxide 400 mg tablet PO ×2 (08:46→18:29)
--- NOTE | 2020-07-02 09:07 | PC.SOCIAL ---
IMM Update Pg.2 of IMM Updated and reviewed with patient who verbalized understanding. Copy provided to patient.
[2020-07-02 12:07] LABS: COMPLEMENT COMPONENT C3C 85 mg/dL (82-185); COMPLEMENT COMPONENT C4C 12 mg/dL (15-53)
[2020-07-02 14:13] LABS: ANA SCREEN, IFA NEGATIVE (NEGATIVE); CENTROMERE B ANTIBODY <1.0 NEG AI (<1.0 NEG); COMPLEMENT, TOTAL (CH50) 31 U/mL (31-60); JO-1 ANTIBODY <1.0 NEG AI (<1.0 NEG); RNP ANTIBODY <1.0 NEG AI (<1.0 NEG); SCL-70 ANTIBODY <1.0 NEG AI (<1.0 NEG); SJOGREN'S ANTIBODY (SS-A) <1.0 NEG AI (<1.0 NEG); SM ANTIBODY <1.0 NEG AI (<1.0 NEG); SS-B <1.0 NEG AI (<1.0 NEG)
--- NOTE | 2020-07-02 15:03 | P.PN_ITS ---
Subjective Subjective: Interval history: He says he is feeling okay continues to refuse medicine at times. Remains noncompliant Medications: Reviewed: Yes Vitals/I&O/Wt Last Vital Signs Temp 97.7 F 07/02/20 11:12 Pulse 67 07/02/20 11:12 Resp 18 07/02/20 11:12 BP 115/70 07/02/20 11:12 Pulse Ox 95 07/02/20 11:12 07/02/20 07/02/20 07/02/20 06:59 14:59 22:59 Intake Total 720 / 720 Output Total 650 / 1880 150 / 150 Balance -650 / -1280 570 / 570 Physical Exam Narrative: EXAM NARRATIVE: GENERAL: Patient is alert, awake and oriented x3. Mild distress with shortness of breath. Disheveled. NECK: No jugular vein distension. Pallor HEENT: No cyanosis. No icterus. No pallor. HEART: Regular S1 and S2. No murmur, rub or gallop. LUNGS: Mild bibasal crepitus ABDOMEN: Mildly distended, nontender Positive bowel sounds. No guarding, rebound or tenderness. CENTRAL NERVOUS SYSTEM: Grossly nonfocal. EXTREMITIES: Lower extremities with 1+ edema bilaterally. Data : 07/02/20 04:39 07/02/20 04:39 A&P Assessment and plan (1) Systolic congestive heart failure with reduced left ventricular function, NYHA class 4: Advised to continue diuretics. Patient refuses it. Discussed with the patient all risk benefit and pros and cons. Status: Acute (2) NSTEMI (non-ST elevated myocardial infarction): Patient remains noncompliant he denies any chest pain we will continue to manage him medically. Status: Acute (3) Atrial fibrillation: Continue current regimen we will bridge him with Lovenox Status: Acute Qualifiers: Atrial fibrillation type: persistent (not longstanding) Qualified Code(s): I48.19 - Other persistent atrial fibrillation (4) Pacemaker: Working in a good standing Status: Acute (5) Fungal infection of the groin: Continue statin Status: Acute (6) Anemia: Chronic anemia. Patient is on warfarin. Continue Protonix Status: Acute Qualifiers: Anemia type: iron deficiency Iron deficiency anemia type: chronic blood loss Qualified Code(s): D50.0 - Iron deficiency anemia secondary to blood loss (chronic) (7) SALONI (obstructive sleep apnea): Continue CPAP Status: Acute (8) CKD (chronic kidney disease) stage 3, GFR 30-59 ml/min: Stabilized Status: Acute Attestations Medical Necessity Statement*: Patient require continuation hospitalization for above defined care. Coding Level of Care Code Established Pt Acute Global Risk Management Director for [facility] Patient Type Established History Detailed Exam Detailed Medical Decision Making Moderate Complexity Diagnoses Systolic congestive heart failure with reduced left ventricular function, NYHA class 4 I50.20 NSTEMI (non-ST elevated myocardial infarction) I21.4 Atrial fibrillation I48.19 Atrial fibrillation type: persistent (not longstanding) Pacemaker Z95.0 Fungal infection of the groin B35.6 Anemia D50.0 Anemia type: iron deficiency Iron deficiency anemia type: chronic blood loss SALONI (obstructive sleep apnea) G47.33 CKD (chronic kidney disease) stage 3, GFR 30-59 ml/min N18.30
--- NOTE | 2020-07-02 15:17 | PC.NURSE ---
PT REFUSES TELEMETRY MONITORING, NOTIFIED DR. NAVARRO, IS AWARE
[2020-07-02 16:18] LABS: THYROID PEROXIDASE ANTIBODIES 3 IU/mL (<9)
--- NOTE | 2020-07-02 16:58 | P.PN_ITS ---
Subjective Subjective: Interval history: patient was seen this morning, he is still short of breath, has bilateral lower extremity edema, but he has his stuff packed an wants to go home to day, he also has refused his bumex this morning Vitals/I&O/Wt Last Vital Signs Temp 97.6 F 07/02/20 15:18 Pulse 63 07/02/20 15:18 Resp 18 07/02/20 15:18 BP 110/79 07/02/20 15:18 Pulse Ox 100 07/02/20 15:18 07/02/20 07/02/20 07/02/20 06:59 14:59 22:59 Intake Total 720 / 720 Output Total 650 / 1880 150 / 150 Balance -650 / -1280 570 / 570 Physical Exam Const: COMMON NORMALS: no acute distress and patient oriented x3 HENMT: COMMON NORMALS: normocephalic HEAD & SCALP: normocephalic Neck/C-Spine: COMMON NORMALS: no JVD Resp: COMMON NORMALS: normal respiratory effort, No retractions and No use of accessory muscles AUSCULTATION: crackles Cardio: COMMON NORMALS: no JVD, regular rate, regular rhythm, S1 normal heart sound present and S2 normal heart sound present RATE: regular rate RHYTHM: regular rhythm HEART SOUNDS: S1 normal heart sound present and S2 normal heart sound present GI: COMMON NORMALS: Normal to inspection, nondistended, normoactive bowel sounds present, Soft to palpation, non-tender, No hepatosplenomegaly present, no masses and no bruits PALPATION: Yes Soft to palpation and Yes No hepatosplenomegaly present Extremity: COMMON NORMALS: capillary refill normal, no clubbing, cyanosis or edema and no calf tenderness NARRATIVE EXTREMITY EXAM: has pedal edma 3+ Neuro: COMMON NORMALS: patient oriented x3 Psych: COMMON NORMALS: mental status grossly normal Data : 07/02/20 04:39 07/02/20 04:39 A&P Assessment and plan (1) NSTEMI (non-ST elevated myocardial infarction): -Patient states that he is not sure if he has been taking the Plavix -Creatinine 1.4 -Baseline troponin 1160, 6-hour 1210, delta -246 -EKG shows no acute ST-T wave changes Plan: -moved to general medical floors -Aspirin, statin, Plavix -On therapeutic Lovenox -Cardiology has been consulted -Monitor for chest pain -Currently receiving diuretic therapy for fluid overload with guidance of cardiology service for fluid overload and shortness of breath and edema -Full code -Heparin for DVT prophylaxis Status: Acute (2) Weakness: -Etiology unclear, could be related to NSTEMI as above -Chest x-ray does show a developing infiltrate on the left heart border, no significant leukocytosis, afebrile, pro-Louis within normal limits CRP within normal limits follow blood cultures, sputum cultures -Hold off on antibiotics for now -PT OT Status: Acute (3) Systolic congestive heart failure with reduced left ventricular function, NYHA class 4: coutibue bumex Status: Acute (4) Anemia: Hemoglobin 9.0, which is about his baseline Status: Acute Qualifiers: Anemia type: iron deficiency Iron deficiency anemia type: chronic blood loss Qualified Code(s): D50.0 - Iron deficiency anemia secondary to blood loss (chronic) (5) Hypothyroidism: TSH 14, his levothyroxine dose was increased on last admission a few days ago, continue to monitor Status: Acute (6) Atrial fibrillation: Continue metoprolol, Coumadin on hold, as patient is on heparin drip Status: Acute Qualifiers: Atrial fibrillation type: persistent (not longstanding) Qualified Code(s): I48.19 - Other persistent atrial fibrillation (7) Panlobular emphysema: Status: Acute (8) SALONI (obstructive sleep apnea): Status: Acute (9) Hepatomegaly: -Liver ultrasound does show hepatomegaly with diffuse fatty infiltration -Does have chronically elevated bilirubin, 2.1 -INR 1.44, albumin 3.3, AST 26, ALT 12, hemoglobin 9.0 -I have ordered HARLEEN, ferritin, acute hepatitis panel which are unremarkable so far -Will require an outpatient follow-up for gastroenterology for liver biopsy Status: Acute Additional A&P Information plan: await cardiology recommendations, advised patient he needs another night on inpatient diureses for systolic chf and fluid overload Attestations Medical Necessity Statement*: patient requires hospitalization for fluid overload and edema secondary to systolic chf requiring inpatient diureses Coding Level of Care Code Acute Supervisor Cell Efficiency for [facility] Fwd Diagnoses NSTEMI (non-ST elevated myocardial infarction) I21.4 Weakness R53.1 Systolic congestive heart failure with reduced left ventricular function, NYHA class 4 I50.20 Anemia D50.0 Anemia type: iron deficiency Iron deficiency anemia type: chronic blood loss Hypothyroidism E03.9 Atrial fibrillation I48.19 Atrial fibrillation type: persistent (not longstanding) Panlobular emphysema J43.1 SALONI (obstructive sleep apnea) G47.33 Hepatomegaly R16.0
[2020-07-02] MEDS: spironolactone 25 mg Tablet PO (18:29)
[2020-07-02] MEDS: FUROsemide 10 mg/mL SDV 10mL 80 MG IVP (18:34)
[2020-07-02] MEDS: metOLazone 5 MG Tablet 2.5 MG PO (18:42)
[2020-07-02] MEDS: ipratropium-albuterol 3 mL Neb INHALATION (19:50)
[2020-07-02] MEDS: atorvastatin 40 mg Tablet PO (20:03)
[2020-07-02] MEDS: metoprolol succinate ER (24 HR) 50 mg Tablet PO (20:03)
[2020-07-02] MEDS: ondansetron 2 mg/ML SDV 2 mL 4 MG IVP (21:56)
--- NOTE | 2020-07-02 22:00 | PM.PN ---
Subjective Subjective: Interval history: Patient says he would like to go home. Patient remains noncompliant. Actually he is today is worse he has more swelling of the legs since he has refused diuretics without any reason. He would not like to take potassium. His abdominal girth is slightly increased his shortness of breath is worse. I have detailed discussion with the patient and advised not to leave. Finally he agreed to it and agreed to be compliant Medications: Reviewed: Yes Vitals/I&O/Wt Last Vital Signs Temp 97.6 F 07/02/20 19:36 Pulse 68 07/02/20 19:56 Resp 18 07/02/20 19:50 BP 107/68 07/02/20 19:36 Pulse Ox 95 07/02/20 19:50 07/02/20 07/02/20 07/02/20 06:59 14:59 22:59 Intake Total 720 / 720 Output Total 650 / 1880 150 / 150 Balance -650 / -1280 570 / 570 Physical Exam Narrative: EXAM NARRATIVE: GENERAL: Patient is alert, awake and oriented x3. Mild distress with shortness of breath. Disheveled. NECK: No jugular vein distension. Pallor HEENT: No cyanosis. No icterus. No pallor. HEART: Regular S1 and S2. No murmur, rub or gallop. LUNGS: Mild bibasal crepitus ABDOMEN: Mildly distended, nontender Positive bowel sounds. No guarding, rebound or tenderness. CENTRAL NERVOUS SYSTEM: Grossly nonfocal. EXTREMITIES: Lower extremities with 2+ edema bilaterally. Data : 07/02/20 04:39 07/02/20 04:39 A&P Assessment and plan (1) Systolic congestive heart failure with reduced left ventricular function, NYHA class 4: Continue to be in decompensated heart failure I will switch him from Bumex to Lasix and metolazone. Will diurese him. Goal is 1.5 to 2 L negative per day with Status: Acute (2) NSTEMI (non-ST elevated myocardial infarction): Continue to treat conservatively. Denies any chest pain. Status: Acute (3) Atrial fibrillation: Rate controlled continue current regimen patient is on Lovenox. We may will switch him to warfarin from tomorrow Status: Acute Qualifiers: Atrial fibrillation type: persistent (not longstanding) Qualified Code(s): I48.19 - Other persistent atrial fibrillation (4) Pacemaker: Working in a good standing Status: Acute (5) Fungal infection of the groin: Continue statin Status: Acute (6) Anemia: Chronic anemia. Patient is on anticoagulation. Continue Protonix. No aspirin required at this point Status: Acute Qualifiers: Anemia type: iron deficiency Iron deficiency anemia type: chronic blood loss Qualified Code(s): D50.0 - Iron deficiency anemia secondary to blood loss (chronic) (7) SALONI (obstructive sleep apnea): Continue CPAP Status: Acute (8) CKD (chronic kidney disease) stage 3, GFR 30-59 ml/min: Continue to monitor hopefully with diuresis he will improve Status: Acute Attestations Medical Necessity Statement*: Patient require continuation hospitalization for above defined care Coding Level of Care Code Established Pt Acute Car Rental Sales Assistant for Ruma Conley Patient Type Established History Detailed Exam Detailed Medical Decision Making Moderate Complexity Diagnoses Systolic congestive heart failure with reduced left ventricular function, NYHA class 4 I50.20 NSTEMI (non-ST elevated myocardial infarction) I21.4 Atrial fibrillation I48.19 Atrial fibrillation type: persistent (not longstanding) Pacemaker Z95.0 Fungal infection of the groin B35.6 Anemia D50.0 Anemia type: iron deficiency Iron deficiency anemia type: chronic blood loss SALONI (obstructive sleep apnea) G47.33 CKD (chronic kidney disease) stage 3, GFR 30-59 ml/min N18.30
[2020-07-03 04:00] VITALS: BP 101/66; PULSE 62; RESP 18; TEMP 36.6; O2SAT 96
[2020-07-03 06:02] LABS: Basophils # 0.1 10^3/uL (0.0-0.1); Basophils % 1.5 %; Eosinophils # 0.2 10^3/uL (0.0-0.8); Eosinophils % 2.6 %; Hematocrit 31.5 % (42.0-52.0); Lymphocytes # 1.8 10^3/uL (0.8-4.8); Lymphocytes % 21.8 %; Mean Corpuscular HGB Conc 28.6 g/dL (30.0-36.0); Mean Corpuscular Hemoglobin 23.6 pg (28.0-34.0); Mean Corpuscular Volume 82.7 fL (80-94); Mean Platelet Volume 10.2 fL (7.4-10.4); Monocytes # 1.4 10^3/uL (0.2-0.9); Monocytes % 17.1 %; Neutrophils # 4.59 10^3/uL (1.8-7.7); Neutrophils % 56.6 %; Nucleated Red Blood Cells % 0 %; Platelet Count 266 10^3/cmm (130-400); Red Blood Count 3.81 10^6/uL (4.1-5.3); Red Cell Distribution Width 20.9 % (12.1-15.1); White Blood Count 8.1 10^3/uL (4.0-10.0)
[2020-07-03 06:25] LABS: Alanine Aminotransferase 12 U/L (0-41); Albumin Level 3.2 g/dL (3.5-5.2); Alkaline Phosphatase 206 IU/L (40-130); Anion Gap 14.6 (5-19); Aspartate Amino Transferase 25 U/L (0-40); Blood Urea Nitrogen 35 mg/dL (8-23); Calcium 8.9 mg/dL (8.5-10.5); Carbon Dioxide 25 mmol/L (22-29); Chloride 96 mmol/L (98-107); Globulin 5.1 g/dL (1.3-4.6); Glomerular Filtration Rate 44.2 mL/min (90-130); Glucose 91 mg/dL (65-115); Osmolality Calculated 280 mOsm/kg (285-295); Potassium 4.6 mmol/L (3.5-5.1); Sodium 131 mmol/L (136-145); Total Bilirubin 2.1 mg/dL (0.15-1.2); Total Protein 8.3 g/dL (6.6-8.7)
[2020-07-03] MEDS: FUROsemide 10 mg/mL SDV 10mL 80 MG IVP (06:37)
[2020-07-03 07:42] VITALS: BP 105/65; PULSE 61; RESP 17; TEMP 36.3; O2SAT 95
[2020-07-03] MEDS: ipratropium-albuterol 3 mL Neb INHALATION (08:09)
[2020-07-03 08:10] VITALS: PULSE 75; RESP 18; O2SAT 95
[2020-07-03 08:14] VITALS: PULSE 70
[2020-07-03] MEDS: metOLazone 5 MG Tablet 2.5 MG PO (09:10)
[2020-07-03] MEDS: levothyroxine 50 mcg Tablet PO (09:10)
[2020-07-03] MEDS: famotidine 20 mg Tablet PO (09:10)
[2020-07-03] MEDS: amiodarone 200 mg Tablet 100 MG PO (09:10)
[2020-07-03] MEDS: aspirin 81 mg EC Tablet PO (09:10)
[2020-07-03] MEDS: potassium chloride ER 20 mEq Tablet PO (09:10)
[2020-07-03] MEDS: clopidogrel 75 mg Tablet PO (09:10)
[2020-07-03] MEDS: magnesium oxide 400 mg tablet PO (09:10)
--- NOTE | 2020-07-03 10:55 | P.PN_ITS ---
Subjective Subjective: Interval history: Patient was seen this morning, he sitting up to the side of the bed, his edema has improved, he is breathing better, but still feels short of breath with exertion he took his medications this morning, he agreed to stay in the hospital thanks to according to Dr. Zendejas's recommendations Vitals/I&O/Wt Last Vital Signs Temp 97.4 F L 07/03/20 07:42 Pulse 70 07/03/20 08:14 Resp 18 07/03/20 08:10 BP 105/65 07/03/20 07:42 Pulse Ox 95 07/03/20 08:10 07/02/20 07/03/20 07/03/20 22:59 06:59 14:59 Intake Total 480 / 480 Output Total 850 / 1000 475 / 475 Balance -850 / -280 Physical Exam Const: COMMON NORMALS: no acute distress and patient oriented x3 HENMT: COMMON NORMALS: normocephalic HEAD & SCALP: normocephalic Neck/C-Spine: COMMON NORMALS: no JVD Resp: COMMON NORMALS: normal respiratory effort, No retractions and No use of accessory muscles AUSCULTATION: crackles Cardio: COMMON NORMALS: no JVD, regular rate, regular rhythm, S1 normal heart sound present and S2 normal heart sound present RATE: regular rate RHYTHM: regular rhythm HEART SOUNDS: S1 normal heart sound present and S2 normal heart sound present GI: COMMON NORMALS: Normal to inspection, nondistended, normoactive bowel curtis nds present, Soft to palpation, non-tender, No hepatosplenomegaly present, no masses and no bruits PALPATION: Yes Soft to palpation and Yes No hepatosplenomegaly present Extremity: COMMON NORMALS: capillary refill normal, no clubbing, cyanosis or edema and no calf tenderness NARRATIVE EXTREMITY EXAM: 2+ pitting edema Neuro: COMMON NORMALS: patient oriented x3 Psych: COMMON NORMALS: mental status grossly normal Data : 07/03/20 04:25 07/03/20 04:25 A&P Assessment and plan (1) NSTEMI (non-ST elevated myocardial infarction): -Patient states that he is not sure if he has been taking the Plavix -Creatinine 1.6 -Baseline troponin 1160, 6-hour 1210, delta -246 -EKG shows no acute ST-T wave changes Plan: -On the general medical floors -Aspirin, statin, Plavix -On therapeutic Lovenox -Cardiology has been consulted -Monitor for chest pain -Currently receiving diuretic therapy for fluid overload with guidance of cardiology service for fluid overload and shortness of breath and edema -Full code -Heparin for DVT prophylaxis Status: Acute (2) Weakness: -Likely related to fluid overload -Chest x-ray does show a developing infiltrate on the left heart border, no significant leukocytosis, afebrile, pro-Louis within normal limits CRP within no rmal limits follow blood cultures, sputum cultures -Hold off on antibiotics for now -PT OT Status: Acute (3) Systolic congestive heart failure with reduced left ventricular function, NYHA class 4: Continue Lasix 80 mg IV every 12 hours, fluid restrictions, daily weights, potassium replacement Status: Acute (4) Anemia: Hemoglobin 9.0, which is about his baseline Status: Acute Qualifiers: Anemia type: iron deficiency Iron deficiency anemia type: chronic blood loss Qualified Code(s): D50.0 - Iron deficiency anemia secondary to blood loss (chronic) (5) Hypothyroidism: TSH 14, his levothyroxine dose was increased on last admission a few days ago, continue to monitor Status: Acute (6) Atrial fibrillation: Continue metoprolol, Coumadin on hold, as patient is on heparin drip Status: Acute Qualifiers: Atrial fibrillation type: persistent (not longstanding) Qualified Code(s): I48.19 - Other persistent atrial fibrillation (7) Panlobular emphysema: Status: Acute (8) SALONI (obstructive sleep apnea): Status: Acute (9) Hepatomegaly: -Liver ultrasound does show hepatomegaly with diffuse fatty infiltration -Does have chronically elevated bilirubin, 2.1 -INR 1.44, albumin 3.3, AST 26, ALT 12, hemoglobin 9.0 -HARLEEN, ferritin, acute hepatitis panel which are unremarkable so far -Will require an outpatient follow-up for gastroenterology for liver biopsy Status: Acute Additional A&P Information plan: Continue diuresis, await cardiology's recommendation, continue ambulation Attestations Medical Necessity Statement*: Patient requires hospitalization for systolic CHF exacerbation, requiring diuretic therapy Coding Level of Care Code Acute 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
[2020-07-03 11:54] VITALS: BP 119/68; PULSE 82; RESP 18; TEMP 36.7; O2SAT 90
--- NOTE | 2020-07-03 12:07 | P.PN_ITS ---
Subjective Subjective: Interval history: Patient was feeling better today. He denies any complaints of chest pain or palpitations. Still short of breath. He was on 3 L oxygen. At home uses 2 L on baseline. He had 500 cc total negative balance over last 24 hours. Currently on Lasix 80 mg twice daily IV and metolazone for 2.5 mg twice daily. Vitals/I&O/Wt Last Vital Signs Temp 98.1 F 07/03/20 11:54 Pulse 82 07/03/20 11:54 Resp 18 07/03/20 11:54 BP 119/68 07/03/20 11:54 Pulse Ox 90 07/03/20 11:54 07/02/20 07/03/20 07/03/20 22:59 06:59 14:59 Intake Total 480 / 480 Output Total 850 / 1000 475 / 475 Balance -850 / -280 5 Physical Exam Const: COMMON NORMALS: no acute distress and patient oriented x3 HENMT: COMMON NORMALS: normocephalic HEAD & SCALP: normocephalic Neck/C-Spine: COMMON NORMALS: no JVD Resp: COMMON NORMALS: normal respiratory effort, No retractions and No use of accessory muscles AUSCULTATION: crackles Cardio: COMMON NORMALS: no JVD, regular rate, regular rhythm, S1 normal heart sound present and S2 normal heart sound present RATE: regular rate RHYTHM: regular rhythm HEART SOUNDS: S1 normal heart sound present and S2 normal heart sound present GI: COMMON NORMALS: Normal to inspection, nondistended, normoactive bowel sounds present, Soft to palpation, non-tender, No hepatosplenomegaly present, no masses and no bruits PALPATION: Yes Soft to palpation and Yes No hepatosplenomegaly present Extremity: COMMON NORMALS: capillary refill normal, no clubbing, cyanosis or edema, no calf tenderness and no pedal edema Neuro: COMMON NORMALS: patient oriented x3 Psych: COMMON NORMALS: mental status grossly normal Skin: NARRATIVE SKIN EXAM: 2+ pitting edema Data : 07/03/20 04:25 07/03/20 04:25 A&P Assessment and plan (1) NSTEMI (non-ST elevated myocardial infarction): Continue to treat conservatively. Denies any chest pain. Status: Acute (2) Systolic congestive heart failure with reduced left ventricular function, NYHA class 4: Plan was to continue with aggressive diuresis with IV Lasix and metolazone. However patient did not want to stay in the hospital and left AGAINST MEDICAL ADVICE. We have instructed him to continue taking Lasix 80 mg twice daily along with metolazone 2.5 mg twice daily. BMP to be done next week and cardiology office visit will be arranged for next week as well. Status: Acute (3) Atrial fibrillation: Patient will restart Coumadin as he was getting Lovenox in hospital. Status: Acute Qualifiers: Atrial fibrillation type: persistent (not longstanding) Qualified Code(s): I48.19 - Other persistent atrial fibrillation (4) Pacemaker: Working in a good standing Status: Acute (5) Fungal infection of the groin: Continue statin Status: Acute (6) Anemia: Chronic anemia. Patient is on anticoagulation. Continue Protonix. No aspirin required at this point Status: Acute Qualifiers: Anemia type: iron deficiency Iron deficiency anemia type: chronic blood loss Qualified Code(s): D50.0 - Iron deficiency anemia secondary to blood loss (chronic) (7) SALONI (obstructive sleep apnea): Continue CPAP Status: Acute (8) CKD (chronic kidney disease) stage 3, GFR 30-59 ml/min: Continue to monitor hopefully with diuresis he will improve Status: Acute Attestations Medical Necessity Statement*: Care expected to cross 2 midnights. Coding Level of Care Code Acute Manufacturing Controls Engineer for [facility] Fwd Exam Comprehensive Diagnoses NSTEMI (non-ST elevated myocardial infarction) I21.4 Systolic congestive heart failure with reduced left ventricular function, NYHA class 4 I50.20 Paroxysmal A-fib I48.0 Atrial fibrillation I48.19 Atrial fibrillation type: persistent (not longstanding) Pacemaker Z95.0 Fungal infection of the groin B35.6 Anemia D50.0 Anemia type: iron deficiency Iron deficiency anemia type: chronic blood loss SALONI (obstructive sleep apnea) G47.33 CKD (chronic kidney disease) stage 3, GFR 30-59 ml/min N18.30
[2020-07-03 12:14] VITALS: BP 119/68; PULSE 82; RESP 18; TEMP 36.7; O2SAT 90
--- NOTE | 2020-07-03 12:18 | PM.DCS ---
Discharge Providers Date of Admission: 06/29/20 12:18 Date of Discharge: July 03, 2020 Attending Provider at Admission: Grant Lamb MD Attending Provider at Discharge: Grant Lamb MD Primary Care Provider: Ahmet Jasso MD Diagnoses at Discharge Discharge Diagnosis (1) NSTEMI (non-ST elevated myocardial infarction): Status: Acute (2) Weakness: Status: Acute (3) Systolic congestive heart failure with reduced left ventricular function, NYHA class 4: Status: Acute (4) Anemia: Status: Acute Qualifiers: Anemia type: iron deficiency Iron deficiency anemia type: chronic blood loss Qualified Code(s): D50.0 - Iron deficiency anemia secondary to blood loss (chronic) (5) Hypothyroidism: Status: Acute (6) Atrial fibrillation: Status: Acute Qualifiers: Atrial fibrillation type: persistent (not longstanding) Qualified Code(s): I48.19 - Other persistent atrial fibrillation (7) Panlobular emphysema: Status: Acute (8) SALONI (obstructive sleep apnea): Status: Acute (9) Hepatomegaly: Status: Acute Reason for Visit Reason for Visit: GENERAL WEAKNESS Hospital Course Hospital Course Leroy Gautam is a 59 year old male with a past medical history of CAD, CVA, COPD, active smoker, hypertension, hyperlipidemia, CHF, atrial fibrillation on Coumadin, who was recently discharged for [facility] for a NSTEMI status post stenting to RCA who presents to [facility] due to fatigue, malaise, weakness, and forgetting to take his Plavix on discharge Patient was admitted to [facility] for NSTEMI, baseline troponin 1160, 6-hour 1210, delta -[address]-T wave changes, no chest pain complaints, cardiology was consulted, patient was medically managed with aspirin, statin, Plavix, therapeutic Lovenox. Patient left AGAINST MEDICAL ADVICE. I have ensured with patient on multiple locations that he must take Plavix. I advised that without the Plavix he faces a significant risk of morbidity and mortality, adverse cardiovascular events, stent restenosis, voiced recently, all questions answered. He he told me that his manages his medications, I had set up home health care for him, but he left AGAINST MEDICAL ADVICE. Nonetheless I again advised compliance with Plavix therapy. in addition I have sent a refill to [facility] pharmacy, to ensure he has medications, but is adamant that he has the Plavix and additional medications at home For his weakness, likely secondary to fluid overload Patient had a exacerbation of systolic CHF, NYHA IV, received inpatient diuresis with Lasix, fluid restrictions, daily weights, potassium placement, diuresed over 5 L during his hospital admission. However on 05/01/2021, patient wanted to leave AGAINST MEDICAL ADVICE, refused to take his morning medications, Dr. Dowling was able to get patient to agree to stay as inpatient for further diuresis. However on the morning of 05/02/2021, patient wanted to leave AGAINST MEDICAL ADVICE, he tells us that his pipes burst at home,. I advised the patient of the risks associated with leaving AGAINST MEDICAL ADVICE, including but not limited to the significant morbidity and Mortality associated, high risk of , high risk of adverse cardiovascular event, high risk of pulmonary edema, CHF exacerbation he voiced understanding, all questions answered, left AGAINST MEDICAL ADVICE signed paperwork. I have instructed the patient to take Lasix 80 mg twice daily with metolazone 2.5 twice daily, with potassium replacement, with a follow-up with cardiology next week for repeat BNP For his atrial fibrillation, he should resume his home Coumadin dosing 6 mg of Coumadin daily except on Tuesdays and Saturdays when he used to take 5 mg, follow-up with cardiology in 1 week for repeat INR Patient has acute on chronic hepatomegaly with elevated bilirubin -Liver ultrasound does show hepatomegaly with diffuse fatty infiltration -Does have chronically elevated bilirubin, 2.1 -INR 1.44, albumin 3.3, AST 26, ALT 12, hemoglobin 9.0 -HARLEEN, ferritin, acute hepatitis panel which are unremarkable so far -Will require an outpatient follow-up for consideration of liver biopsy Physical Exam Const: COMMON NORMALS: no acute distress and patient oriented x3 HENMT: COMMON NORMALS: normocephalic HEAD & SCALP: normocephalic Neck/C-Spine: COMMON NORMALS: no JVD Resp: COMMON NORMALS: normal respiratory effort, No retractions and No use of accessory muscles AUSCULTATION: crackles Cardio: COMMON NORMALS: no JVD, regular rate, regular rhythm, S1 normal heart sound present and S2 normal heart sound present RATE: regular rate RHYTHM: regular rhythm HEART SOUNDS: S1 normal heart sound present and S2 normal heart sound present GI: COMMON NORMALS: Normal to inspection, nondistended, normoactive bowel sounds present, Soft to palpation, non-tender, No hepatosplenomegaly present, no masses and no bruits PALPATION: Yes Soft to palpation and Yes No hepatosplenomegaly present Extremity: COMMON NORMALS: capillary refill normal, no clubbing, cyanosis or edema, no calf tenderness and no pedal edema Neuro: COMMON NORMALS: patient oriented x3 Psych: COMMON NORMALS: mental status grossly normal Skin: NARRATIVE SKIN EXAM: 2+ pitting edema Discharge Data Data Completed and Pending: Completed Studies During Hospitalization Category Date Time Status CXRIE [XR chest 2 V insp/exp [id number]] Routine Exams 07/01/20 10:15 Completed XR chest 1V [place]one ble [id number] Stat Exams 06/29/20 09:25 [place] liver 46749 Ro utine Ultrasound 07/01/20 11:32 Completed Pending at discharge Category Date Time Status HARLEEN Profile Rheum atology Stat Lab 07/01/20 04:15 Results Blood Culture Sta t Lab 06/29/20 14:47 Results Sputum Culture an d Gram Stain Stat Lab 06/29/20 14:25 Uncollected Labs from last 24 hours 07/03/20 07/03/20 07/01/20 04:25 04:25 04:15 WBC 8.1 RBC 3.81 L Hgb 9.0 L Hct 31.5 L MCV 82.7 MCH 23.6 L MCHC 28.6 L RDW 20.9 H Plt Count 266 MPV 10.2 Neut % (Auto) 56.6 Lymph % (Auto) 21.8 Gentry % (Auto) 17.1 Eos % (Auto) 2.6 Baso % (Auto) 1.5 Neut # (Auto) 4.59 Lymph # (Auto) 1.8 Gentry # (Auto) 1.4 H Eos # (Auto) 0.2 Baso # (Auto) 0.1 Nucleated RBC % (a uto) 0 Nucleated RBCs # 0.0 Sodium 131 L Potassium 4.6 Chloride 96 L Carbon Dioxide 25 Anion Gap 14.6 BUN 35 H Creatinine 1.6 H GFR Calculation 44.2 L Glucose 91 Calculated Osmolal ity 280 L Calcium 8.9 Total Bilirubin 2.1 H AST 25 ALT 12 Alkaline Phosphata se 206 H Total Protein 8.3 Albumin 3.2 L Globulin 5.1 H HARLEEN IFA Animal Tis Res Negative LILIAN-1 Antibody <1.0 neg SS-A Antibody <1.0 neg SS-B Antibody <1.0 neg Sm (Asencio) Antibod y <1.0 neg FIBER DESIGN ENGINEER Antibody <1.0 neg Scl-70 Antibody <1.0 neg Centromere B Antib edmundo <1.0 neg Thyroid Peroxidase Ab 3 CH50 [address] [place] 31 Vitals: Last Vital Signs Temp 98.1 F 07/03/20 12:14 Pulse 82 07/03/20 12:14 Resp 18 07/03/20 12:14 BP 119/68 07/03/20 12:14 Pulse Ox 90 07/03/20 12:14 Discharge Plan Discharge Patient Disposition: Left Against Medical Advice Condition: Stable Prescriptions: Continued albuterol sulfate 2.5 mg /3 mL (0.083 %) solution for nebulization 2.5 mg INHALATION Q4H PRN (Reason: shortness of breath ) RF: 0 amiodarone 200 mg tablet 100 mg PO DAILY@09 RF: 0 nystatin 100,000 unit/gram ointment 1 applic topical BID Qty: 15 RF: 0 levothyroxine 50 mcg tablet 50 mcg PO DAILY@09 RF: 0 furosemide 40 mg tablet 80 mg PO BID@, 30 Days Qty: 60 RF: 0 metolazone 2.5 mg tablet 2.5 mg PO BID@, 30 Days Qty: 60 RF: 0 atorvastatin 40 mg tablet 40 mg PO BEDTIME@1999 30 Days Qty: 30 RF: 0 clopidogrel 75 mg Tablet 75 mg PO DAILY 30 Days Qty: 30 RF: 0 potassium chloride 20 mEq tablet,ER particles/crystals 20 meq PO TID@,12,20 30 Days Qty: 90 RF: 0 warfarin 2 mg tablet See Rx Instructions .ROUTE .COMPLEX Qty: 90 RF: 0 metoprolol succinate 25 mg tablet extended release 24 hr 50 mg PO BEDTIME@ 30 Days Qty: 30 RF: 0 nitroglycerin [Nitrostat] 0.4 mg tablet, sublingual 0.4 mg SUBLINGUAL Q5M PRN (Reason: Chest Pain) 5 Days Qty: 5 RF: 0 spironolactone [Aldactone] 25 mg tablet 25 mg PO DAILY@1600 30 Days Qty: 30 RF: 0 Discontinued aspirin 325 mg Tablet 325 mg PO PRN RF: 0 Aspir-81 81 mg Tablet,Delayed Release (Dr/Ec) See Rx Instructions .ROUTE .COMPLEX RF: 0 No Action (DME) Portable oxygen with concentrator See Rx Instructions .Route .MEDSUPPLY Qty: 1 RF: 0 Other Ambulatory Orders: NT Pro B Type Natriuretic Pept (Routine) Timeframe: 1 Week Facility: [facility] - Location: Lab - Main Lab Ordered By: Grant Lamb Prothrombin Time INR (Routine) Timeframe: 1 Week Facility: [facility] - Location: Lab - Main Lab Ordered By: Grant Lamb Referrals: Ahmet Jasso MD [Primary Care Provider] - 2 weeks (need for liver biopsy for liver diease) Bert Angela M.D [Physician] - 1 week Discharge Diet: Cardiac Discharge Activity: Resume usual activity Patient Instructions: Warfarin (By mouth), Myocardial Infarction (DC), Heart Failure (DC), Chronic Kidney Disease (DC) Activity Restrictions/Additional Instructions: -Please take Lasix 80 mg twice daily with potassium replacement -Please take metolazone 2.5 twice daily -Please weigh yourself daily, if you gain more than 2 pounds, worsening shortness of breath or swelling take an extra dose of Lasix 40 mg -If you feel significant short of breath, have significant edema or chest pain come back to emergency room -Please continue your home Coumadin dosinmg PO every SUN, MON, WED,FRI 5mg PO every ES, , SAT -So take 5 mg of Coumadin tonight -PLEASE REMEMBER TO TAKE YOUR PLAVIX -Follow-up with cardiology in 1 week for repeat BnP and INR Discharge Attestations Time Spent in Discharge Care*: less than 30 min Status at Discharge: Cognitive status at discharge: cognitively intact, Behavioral status at discharge: cooperative, Quality Metrics Clinical Quality Measures During this hospital stay, did patient experience: None Coding Level of Care Code Acute Skidder Operator for [facility] Diagnoses NSTEMI (non-ST elevated myocardial infarction) I21.4 Weakness R53.1 Systolic congestive heart failure with reduced left ventricular function, NYHA class 4 I50.20 Anemia D50.0 Anemia type: iron deficiency Iron deficiency anemia type: chronic blood loss Hypothyroidism E03.9 Atrial fibrillation I48.19 Atrial fibrillation type: persistent (not longstanding) Panlobular emphysema J43.1 SALONI (obstructive sleep apnea) G47.33 Hepatomegaly R16.0
--- NOTE | 2020-07-03 12:55 | PC.NURSE ---
AT APPROX 1145 PT, MR. VIEYRA CALLED ME INTO HIS ROOM 276-1, TO INFORM ME THAT HE WAS LEAVING. PT WAS ALREADY COMPLETELY DRESSED AND SITTING IN THE CHAIR. HE STATED, I HAVE BUSTED WATER PIPES AT HOME AND NO ONE TO HELP ME OUT, I HAVE TO LEAVE NOW! I EDUC THE PT THAT IF HE WAS LEAVING THAT IT WOULD BE AGAINST MEDICAL ADVICE AND ENCOURAGED HIM THAT STAYING WOULD BE THE BEST FOR HIM. PT AGREES THAT STAYING WOULD BE BEST BUT, HE HAD TO LEAVE DUE TO HIS PIPES BEING BUSTED. I THEN NOTIFIED , DR NAVARRO AND DR JOHNSON. THEY ARE ALL AWARE OF PTS INTENTIONS OF LEAVING AMA. I EDUCATED THE PT AND (VIA PHONE) OF THE POTENTIAL CONSEQUENCES OF LEAVING AMA, HIS MEDICATIONS AND THE IMPORTANCE OF HIM TAKING ALL OF THEM PRESCRIBED. HE ACKNOWLEDGED AND STATED HE WOULD. ALSO, GAVE HIM PRINTED EDUCATION ON MEDICATIONS. HE SIGNED THE AMA PAPER AT APPROX 1230.
[2020-07-08 22:53] LABS: DNA AB (DS) CRITHIDIA,IFA NEGATIVE (NEGATIVE)
== END 2020-07-03 13:45 | disposition left against medical advice (07) | DRG 280 ==
LOC: ER 10:32 → CSU 13:40 → MEDSURG 07-01 18:25
PROVIDERS: Admitting Provider Family Medicine; Emergency Provider Family Medicine; PCP Internal Medicine; Visit Provider Family Medicine
DX: I21.4 Non-ST elevation (NSTEMI) myocardial infarction (principal); I50.23 Acute on chronic systolic (congestive) heart failure; I13.0 Hypertensive heart and chronic kidney disease with heart failure and stage 1 through stage 4 chronic kidney disease, or unspecified chronic kidney disease; I42.9 Cardiomyopathy, unspecified; I25.10 Atherosclerotic heart disease of native coronary artery without angina pectoris; Z95.5 Presence of coronary angioplasty implant and graft; Z86.73 Personal history of transient ischemic attack (TIA), and cerebral infarction without residual deficits; J43.1 Panlobular emphysema; F17.210 Nicotine dependence, cigarettes, uncomplicated; N18.30 Chronic kidney disease, stage 3 unspecified; E78.5 Hyperlipidemia, unspecified; I48.0 Paroxysmal atrial fibrillation; I25.2 Old myocardial infarction; D50.0 Iron deficiency anemia secondary to blood loss (chronic); E03.9 Hypothyroidism, unspecified; G47.33 Obstructive sleep apnea (adult) (pediatric); Z95.0 Presence of cardiac pacemaker; I73.9 Peripheral vascular disease, unspecified; E53.8 Deficiency of other specified B group vitamins; Z91.14 Patient's other noncompliance with medication regimen; B35.6 Tinea cruris; Z79.01 Long term (current) use of anticoagulants; Z79.02 Long term (current) use of antithrombotics/antiplatelets; Z79.51 Long term (current) use of inhaled steroids; K76.0 Fatty (change of) liver, not elsewhere classified; Z53.29 Procedure and treatment not carried out because of patient's decision for other reasons; Z99.81 Dependence on supplemental oxygen; R16.0 Hepatomegaly, not elsewhere classified
CPT/HCPCS: 36415; 71045; 71046; 76705; 80053; 80074; 80076; 81003; 82550; 82728; 83036; 83735; 83880; 84100; 84145; 84443; 84484; 85025; 85610; 85730; 86140; 86160; 86162; 86235; 86255; 86376; 87040; 93005; 94640; 94660; 96372; 96374; 99285; J1644; J1650; J1940; J2405; J3490; J7030

== ENCOUNTER 2020-07-26 17:32 | Inpatient (IN) | payer MEDICARE, SELFPAY ==
[2020-07-26 17:37] VITALS: BMI 45.7
--- NOTE | 2020-07-26 18:29 | ECG_ITS ---
[facility] ED Test Date: 2020-07-26 Pat Name: Leroy Gautam Department: Room: 278 Gender: Male Qa Architect: : [id number] Requested By: Yomi Amor Order Number: [id number] Darshan MD: Anais Henderson M.D. Measurements Intervals [place] Rate: 60 P: MI: QRS: -45 QRSD: 93 T: 104 QT: 415 QTc: 416 Interpretive Statements A. fib with demand pacing LOW QRS VOLTAGE [QRS DEFLECTION < 0.5/1.0 mV IN LIMB/CHEST LEADS] LEFT ANTERIOR FASCICULAR BLOCK [QRS AXIS <= -45, QR IN I, RS IN II] Compared to ECG 06/29/2020 16:02:47 Left anterior fascicular block now present Atrial fibrillation no longer present Ventricular premature complex(es) no longer present Aberrant conduction of supraventricular beat(s) no longer present Left-axis deviation no longer present Myocardial infarct finding still present Electronically Signed On 07-31-2020 0:07:33 CDT by Anais Henderson M.D. [id number]
[2020-07-26 18:40] VITALS: PULSE 60; O2SAT 96
[2020-07-26 18:54] LABS: Basophils # 0.1 10^3/uL (0.0-0.1); Basophils % 1.1 %; Eosinophils # 0.2 10^3/uL (0.0-0.8); Eosinophils % 2.8 %; Hematocrit 31.2 % (42.0-52.0); Lymphocytes # 1.5 10^3/uL (0.8-4.8); Lymphocytes % 19.2 %; Mean Corpuscular HGB Conc 28.8 g/dL (30.0-36.0); Mean Corpuscular Hemoglobin 23.5 pg (28.0-34.0); Mean Corpuscular Volume 81.5 fL (80-94); Monocytes # 1.1 10^3/uL (0.2-0.9); Monocytes % 13.4 %; Neutrophils # 4.98 10^3/uL (1.8-7.7); Neutrophils % 63.1 %; Nucleated Red Blood Cells % 0 %; Platelet Count 267 10^3/cmm (130-400); Red Blood Count 3.83 10^6/uL (4.1-5.3); Red Cell Distribution Width 21.1 % (12.1-15.1); White Blood Count 7.9 10^3/uL (4.0-10.0)
--- NOTE | 2020-07-26 19:03 | PC.NURSE ---
Skin Pt's skin is very purple. He has non pitting edema +4. Very dry and flaky skin to BLE and Arms.
[2020-07-26] MEDS: FUROsemide 10 mg/mL SDV 10mL 80 MG IVP (19:12)
[2020-07-26 19:16] LABS: Anion Gap 13.5 (5-19); Blood Urea Nitrogen 28 mg/dL (8-23); Calcium 8.4 mg/dL (8.5-10.5); Carbon Dioxide 26 mmol/L (22-29); Chloride 92 mmol/L (98-107); Glomerular Filtration Rate 61.3 mL/min (90-130); Glucose 89 mg/dL (65-115); Osmolality Calculated 271 mOsm/kg (285-295); Potassium 3.5 mmol/L (3.5-5.1); Sodium 128 mmol/L (136-145)
[2020-07-26 20:55] VITALS: PULSE 66; RESP 18; O2SAT 98
--- NOTE | 2020-07-26 21:36 | P.HP_ITS ---
Providers/Chief Complaint Admitting Physician: Yomi Amor MD Primary Care Provider: Ahmet Jasso MD Chief Complaint: Decomprensatc,AFIB, Renal & Resp Failure History of Present Illness Leroy Gautam is a 59 year old male has medical history significant for noncompliance, systolic heart failure, coronary artery disease , chronic kidney disease stage III, atrial fibrillation, history of ventricular tachycardia status post ICD, hypothyroidism, groin fungal infection who few days ago left the hospital during his treatment due to water leak at home presented today in my clinic with worsening of shortness of breath PND orthopnea and anasarca. He appeared to be in decompensated state of systolic heart failure despite of optimization of medicine and oral diuretics including metolazone. He denies chest pain though. Patient has failed outpatient treatment therefore he needs to come in for IV diuretics and optimization of medicine for worsening of heart failure Review of Systems Eyes: Denies: photophobia ENMT: Denies: enlarged tonsils Musc: Denies: joint warmth Psych: Denies: sleeping more All/Imm: Denies: acute wheezing Medications/Allergies Home Medications Medication Instructions Recorded Confirmed Last Taken Type Portable oxygen with concentrator #1 ea 01/16/20 07/26/20 Unknown Rx albuterol sulfate 2.5 mg INHALATION Q4H PRN 07/26/20 07/26/20 Unknown History amiodarone 200 mg PO DAILY 07/26/20 07/26/20 Unknown History atorvastatin 40 mg PO QPM 07/26/20 07/26/20 Unknown History clopidogrel 75 mg PO DAILY 07/26/20 07/26/20 Unknown History furosemide [Lasix] 40 mg PO DAILY 07/26/20 07/26/20 Unknown History levothyroxine 50 mcg PO DAILY 07/26/20 07/26/20 Unknown History metolazone 2.5 mg PO DAILY 07/26/20 07/26/20 Unknown History metoprolol succinate 50 mg PO DAILY 07/26/20 07/26/20 Unknown History potassium chloride 20 meq PO TID 07/26/20 07/26/20 Unknown History spironolactone 25 mg PO DAILY 07/26/20 07/26/20 Unknown History warfarin 6 mg PO DIRECTED 07/26/20 07/26/20 Unknown History Allergies Allergy/AdvReac Type Severity Reaction Status Date / Time No Known Allergies Allergy Verified 07/07/20 15:57 PFSH Acute PFSH: Medical History Anemia Atrial fibrillation CAD in [place] artery Cardiomyopathy CHF (congestive heart failure) CKD (chronic kidney disease) stage 3, GFR 30-59 ml/min CVA (cerebral vascular accident) HTN (hypertension) Hyperlipidemia Hypotension Hypothyroid Nicotine dependence, cigarettes, with unspecified nicotine-induced disorders Non-ST elevation [place] (NSTEMI) Orthostasis SALONI (obstructive sleep apnea) Pacemaker 2013- dual chamber Panlobular emphysema Paroxysmal A-fib PVD (peripheral vascular disease) Vitamin B12 deficiency Surgical History H/O coronary angioplasty 2013 H/O reduction of closed fracture ankle History of cardiac radiofrequency ablation (RFA) 76489 Hx of appendectomy S/P appendectomy Status cardiac pacemaker Family History Father Myocardial infarct Mother Myocardial infarct Other Family history of premature coronary artery disease Hypertension Social History Smoking and tobacco status: current every day smoker cigarettes Packs smoked per day: 0.5 Years cigarettes smoked: 40 [ Other cigarette details: Hx of 1PPD x 40 Years ] Quit status (tobacco): has tried quititng Second hand smoke exposure: Yes Smoking risk assessment/counseling performed?: Yes Alcohol intake: former Year of sobriety/quit date alcohol: 1980 Lives independently: Yes Household members: spouse Marital status: Current occupational status: disabled History of recent travel: No Current gender identity: Male Vitals/I&O/Wt Last Vital Signs Pulse 66 07/26/20 20:55 Pulse Ox 98 07/26/20 20:55 Weight last 48 hrs Weight 328 lb Physical Exam Narrative: EXAM NARRATIVE: GENERAL: Patient is alert, awake and oriented x3. NECK: No jugular vein distension. HEENT: No cyanosis. No icterus. No pallor. HEART: Irregularly irregular S1 and S2. No murmur, rub or gallop. LUNGS: Decreased breath sounds bilaterally. ABDOMEN: Firm nontender and distended. Positive bowel sounds. No guarding, rebound or tenderness. CENTRAL NERVOUS SYSTEM: Grossly nonfocal. EXTREMITIES: Lower extremities with 2+ edema bilaterally uptill thigh. Data : 07/26/20 18:43 07/26/20 18:43 A&P Assessment and plan (1) Systolic congestive heart failure with reduced left ventricular function, NYHA class 4: I will discontinue oral furosemide and metolazone. Will start 80 mg IV twice daily with furosemide and 20 mg p.o. twice daily potassium chloride. Our goal is 1 to 1.5 L negative every day. I believe he has 4 to 5 L to go but may need 3 to 4 days of diuresis. Continue rest of the medicine, once euvolemic consider adding Entresto Status: Acute (2) Anemia: Stable. Continue to monitor Status: Acute Qualifiers: Anemia type: iron deficiency Iron deficiency anemia type: chronic blood loss Qualified Code(s): D50.0 - Iron deficiency anemia secondary to blood loss (chronic) (3) Atrial fibrillation: Rate control continue antiarrhythmic and warfarin, check INR normal Status: Acute Qualifiers: Atrial fibrillation type: persistent (not longstanding) Qualified Code(s): I48.19 - Other persistent atrial fibrillation (4) CAD in [place] artery: Stable doing fine from the current disease perspective. Continue current regimen and clopidogrel Status: Acute (5) SALONI (obstructive sleep apnea): Advised using CPAP Status: Acute Attestations Medical Necessity Statement*: Require continuation hospitalization. I am expecting his stay to cross more than 2 midnights. 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
--- NOTE | 2020-07-26 21:37 | PC.NURSE ---
Patient had large void missing urinal.
[2020-07-27] VITALS (11 sets, daily range): BP systolic 100–134; BP diastolic 55–77; PULSE 61–78; RESP 17–19; TEMP 36.3–36.8; O2SAT 94–98
--- NOTE | 2020-07-27 05:35 | PC.NURSE ---
While rounding with patient, this nurses noticed some blood droplets on the floor after patient voided. Upon assessing and speaking with the patient, he said that his scrotum is dry and itchy. This nurses noticed dryness and swelling to scrotum area and applied aloe vesta to affected area.
--- NOTE | 2020-07-27 06:11 | PC.NURSE ---
While speaking with patient, patient expressed concern about being able to cope at home with his health issues. Patient was educated on CHF and being compliant with doctor's orders with medications, diet, and fluid restriction. Patient says that does not do a good job of watching what he eats or amount of fluid intake. Patients states that he does not feel as though he can get around as well as he should, and doesn't have the assistance he needs from family.
[2020-07-27] MEDS: FUROsemide 10 mg/mL SDV 10mL 80 MG IVP ×2 (06:22→17:41)
[2020-07-27 06:28] LABS: INR 1.72 (0.8-1.2)
[2020-07-27 06:44] LABS: Anion Gap 13.3 (5-19); Blood Urea Nitrogen 31 mg/dL (8-23); Calcium 8.5 mg/dL (8.5-10.5); Carbon Dioxide 26 mmol/L (22-29); Chloride 93 mmol/L (98-107); Glomerular Filtration Rate 55.9 mL/min (90-130); Glucose 116 mg/dL (65-115); Osmolality Calculated 276 mOsm/kg (285-295); Potassium 3.3 mmol/L (3.5-5.1); Sodium 129 mmol/L (136-145)
--- NOTE | 2020-07-27 08:42 | PC.PHAR ---
pt states she uses the last med list the pt was discharged with. States the patient was taken off his Levothyroxine and Amiodarone after surgery.
[2020-07-27] MEDS: levothyroxine 50 mcg Tablet PO (08:53)
[2020-07-27] MEDS: clopidogrel 75 mg Tablet PO (08:53)
[2020-07-27] MEDS: metoprolol succinate ER (24 HR) 50 mg Tablet PO (08:53)
[2020-07-27] MEDS: amiodarone 200 mg Tablet PO (08:54)
[2020-07-27] MEDS: spironolactone 25 mg Tablet PO (08:54)
[2020-07-27] MEDS: potassium chloride ER 20 mEq Tablet PO ×3 (08:54→21:03)
--- NOTE | 2020-07-27 11:06 | PC.CHAP ---
Pastoral Care Encounter/Spiritual Assessment Type of Contact [] Declined imager visit [] Patient/Family/Request visit [] Outpatient visit [] Follow-up visit [] Physician referral [] Code/Alert [x] Routine visit [] Staff referral [] Actively dying [] Patient sleeping [] Family support [] [] Out of room [] Palliative care [] [] Receiving care in room [] Pre-surgical visit [] Trauma [] Long length of stay [] ICU visit [] Other: Relational/Emotional Strength [x] Patient feels connected with others/family/visitors/staff [] Distress [] Loneliness/isolation [] Abandonment Spirituality of Patient [x] Person of Nano [] Attends [employer] of their Nano [x] Believes in Prayer [] Reads Bible or Yarsanism materials [] There are Spiritual issues to be addressed Dinking Machine Operator Interventions [x] Prayer [x] Active listening [x] Non-anxious presence [] Spiritual/emotional support [] Crisis/trauma care [] Spiritual counseling [] Bereavement support [] Provided bereavement packet [] Provided Bible/devotional materials [] Provided toy/stuffed animal, coloring book to patient or family member [] Provided Communion [] Anointing/[place] [] Salvation [x] Completed spiritual assessment [] Other: Impact on Illness or Injury [] Angry [] Fearful [x] Anxious [] Often cries [] Exhaustion [] Unable to work [] Unable to attend jehovah's witness [] Unable to walk/stand [] Unable to read [] Unable to drive [] Unable to eat/drink [] Unable to sleep [] Unable to be with family [] Patient intubated [] Other: Summary patient tonya\t alot oc conversation Time spent with patient 10 min
--- NOTE | 2020-07-27 11:36 | P.PN_ITS ---
Subjective Subjective: Interval history: Feeling little better breathing better diuresed well Medications: Reviewed: Yes Vitals/I&O/Wt Last Vital Signs Temp 97.5 F L 07/27/20 07:51 Pulse 78 07/27/20 07:51 Resp 18 07/27/20 07:51 BP 100/62 07/27/20 07:51 Pulse Ox 97 07/27/20 07:51 07/26/20 07/27/20 07/27/20 22:59 06:59 14:59 Intake Total 476 / 476 240 / 240 Output Total 400 / 400 675 / 1075 1150 / 1150 Balance 76 / 76 -675 / -599 -910 / -910 Weight last 48 hrs Weight 330 lb 3 oz Weight 328 lb Physical Exam Narrative: EXAM NARRATIVE: GENERAL: Patient is alert, awake and oriented x3. NECK: No jugular vein distension. HEENT: No cyanosis. No icterus. No pallor. HEART: Irregularly irregular S1 and S2. No murmur, rub or gallop. LUNGS: Decreased breath sounds bilaterally. ABDOMEN: Firm nontender and distended. Positive bowel sounds. No guarding, rebound or tenderness. CENTRAL NERVOUS SYSTEM: Grossly nonfocal. EXTREMITIES: Lower extremities with 2+ edema bilaterally uptill thigh. Data : 07/26/20 18:43 07/27/20 05:32 A&P Assessment and plan (1) Systolic congestive heart failure with reduced left ventricular function, NYHA class 4: I will discontinue oral furosemide and metolazone. Will start 80 mg IV twice daily with furosemide and 20 mg p.o. twice daily potassium chloride. Our goal is 1 to 1.5 L negative every day. I believe he has 4 to 5 L to go but may need 3 to 4 days of diuresis. Continue rest of the medicine, once euvolemic consider adding Entresto. On today's visit dated 07/27/2020 patient diuresing well, continue IV Lasix 80 mg twice daily. Continue potassium replacement. Status: Acute (2) Anemia: Stable. Continue to monitor Status: Acute Qualifiers: Anemia type: iron deficiency Iron deficiency anemia type: chronic blood loss Qualified Code(s): D50.0 - Iron deficiency anemia secondary to blood loss (chronic) (3) Atrial fibrillation: Rate control continue antiarrhythmic and warfarin, check INR normal Status: Acute Qualifiers: Atrial fibrillation type: persistent (not longstanding) Qualified Code(s): I48.19 - Other persistent atrial fibrillation (4) CAD in [place] artery: Stable doing fine from the current disease perspective. 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
[2020-07-27] MEDS: atorvastatin 40 mg Tablet PO (17:41)
[2020-07-28] VITALS (15 sets, daily range): BP systolic 90–119; BP diastolic 55–86; PULSE 53–81; RESP 17–18; TEMP 36.4–37; O2SAT 89–98
[2020-07-28] MEDS: FUROsemide 10 mg/mL SDV 10mL 80 MG IVP ×2 (06:11→17:52)
[2020-07-28 06:55] LABS: INR 1.73 (0.8-1.2)
--- NOTE | 2020-07-28 09:40 | P.PN_ITS ---
Subjective Subjective: Interval history: Patient is feeling better. No chest pain or palpitations. Patient is still short of breath. Has been diuresing well. Vitals/I&O/Wt Last Vital Signs Temp 97.5 F L 07/28/20 07:39 Pulse 68 07/28/20 09:31 Resp 18 07/28/20 09:27 BP 98/55 07/28/20 07:39 Pulse Ox 89 L 07/28/20 09:27 07/27/20 07/28/20 07/28/20 22:59 06:59 14:59 Intake Total 480 / 960 240 / 240 Output Total 1770 / 2920 1050 / 3970 Balance -1290 / -1960 -1050 / -3010 240 / 240 Weight last 48 hrs Weight 323 lb 8 oz Weight 330 lb 3 oz Weight 328 lb Physical Exam Narrative: EXAM NARRATIVE: GENERAL: Patient is alert, awake and oriented x3. NECK: No jugular vein distension. HEENT: No cyanosis. No icterus. No pallor. HEART: Irregularly irregular S1 and S2. No murmur, rub or gallop. LUNGS: Decreased breath sounds bilaterally. ABDOMEN: Firm nontender and distended. Positive bowel sounds. No guarding, rebound or tenderness. CENTRAL NERVOUS SYSTEM: Grossly nonfocal. EXTREMITIES: Lower extremities with 2+ edema bilaterally uptill thigh. Data : 07/26/20 18:43 07/28/20 05:43 A&P Assessment and plan (1) Systolic congestive heart failure with reduced left ventricular function, NYHA class 4: Continue 80 mg IV twice daily furosemide and 20 mg p.o. twice daily potassium chloride. Our goal is atleast 1.5 L negative every day. Continue current medications. May consider adding entresto at time of discharge Patient has good urine outpit Status: Acute (2) Anemia: Stable. Continue to monitor Status: Acute Qualifiers: Anemia type: iron deficiency Iron deficiency anemia type: chronic blood loss Qualified Code(s): D50.0 - Iron deficiency anemia secondary to blood loss (chronic) (3) Atrial fibrillation: Rate control continue antiarrhythmic and warfarin, check INR Status: Acute Qualifiers: Atrial fibrillation type: persistent (not longstanding) Qualified Code(s): I48.19 - Other persistent atrial fibrillation (4) CAD in [place] artery: Stable doing fine from the current disease perspective. Continue current regimen and clopidogrel Status: Acute (5) SALONI (obstructive sleep apnea): Advised using CPAP Status: Acute Attestations Medical Necessity Statement*: Care expected to cross 2 midnights. 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
[2020-07-28] MEDS: potassium chloride ER 20 mEq Tablet PO ×2 (10:02→21:18)
[2020-07-28] MEDS: clopidogrel 75 mg Tablet PO (10:03)
[2020-07-28] MEDS: amiodarone 200 mg Tablet PO (10:03)
[2020-07-28] MEDS: levothyroxine 50 mcg Tablet PO (10:03)
[2020-07-28] MEDS: spironolactone 25 mg Tablet PO (10:03)
[2020-07-28] MEDS: metoprolol succinate ER (24 HR) 50 mg Tablet PO (10:03)
[2020-07-28 10:31] LABS: Anion Gap 15.4 (5-19); Blood Urea Nitrogen 32 mg/dL (8-23); Calcium 8.6 mg/dL (8.5-10.5); Carbon Dioxide 28 mmol/L (22-29); Chloride 92 mmol/L (98-107); Glomerular Filtration Rate 61.3 mL/min (90-130); Glucose 113 mg/dL (65-115); Osmolality Calculated 282 mOsm/kg (285-295); Potassium 3.4 mmol/L (3.5-5.1); Sodium 132 mmol/L (136-145)
[2020-07-28] MEDS: warfarin 6 mg Tablet PO (15:59)
[2020-07-28] MEDS: atorvastatin 40 mg Tablet PO (17:52)
[2020-07-29] VITALS (9 sets, daily range): BP systolic 98–122; BP diastolic 57–78; PULSE 60–76; RESP 18–19; TEMP 36.5–36.8; O2SAT 92–99
[2020-07-29] MEDS: FUROsemide 10 mg/mL SDV 10mL 80 MG IVP ×2 (05:41→18:28)
[2020-07-29 06:10] LABS: Partial Thromboplastin Time 35.1 SECONDS (23.9-36.7)
[2020-07-29 08:16] LABS: Anion Gap 11.6 (5-19); Blood Urea Nitrogen 31 mg/dL (8-23); Calcium 8.4 mg/dL (8.5-10.5); Carbon Dioxide 31 mmol/L (22-29); Chloride 91 mmol/L (98-107); Glomerular Filtration Rate 61.3 mL/min (90-130); Glucose 113 mg/dL (65-115); Osmolality Calculated 277 mOsm/kg (285-295); Potassium 3.6 mmol/L (3.5-5.1); Sodium 130 mmol/L (136-145)
[2020-07-29] MEDS: levothyroxine 50 mcg Tablet PO (08:47)
[2020-07-29] MEDS: metoprolol succinate ER (24 HR) 50 mg Tablet PO (08:48)
[2020-07-29] MEDS: potassium chloride ER 20 mEq Tablet PO (08:48)
[2020-07-29] MEDS: clopidogrel 75 mg Tablet PO (08:48)
[2020-07-29] MEDS: spironolactone 25 mg Tablet PO (08:48)
[2020-07-29] MEDS: amiodarone 200 mg Tablet PO (08:48)
--- NOTE | 2020-07-29 09:23 | PC.SOCIAL ---
IMM Update Pg. 2 of IMM updated and reviewed with patient who verbalized understanding. Copy provided.
--- NOTE | 2020-07-29 14:21 | PM.PN ---
Subjective Subjective: Interval history: Patient is doing well. He denies any complaints of chest pain or palpitations. His breathing is improving. He still has significant volume overload. He is net -7.5 L since admission. Kidney function is stable Vitals/I&O/Wt Last Vital Signs Temp 98.2 F 07/29/20 08:00 Pulse 62 07/29/20 10:08 Resp 18 07/29/20 10:08 BP 101/61 07/29/20 08:00 Pulse Ox 96 07/29/20 10:08 07/28/20 07/29/20 07/29/20 22:59 06:59 14:59 Intake Total 240 / 240 Output Total 2670 / 2670 1305 / 3975 700 / 700 Balance -2670 / -2310 -1305 / -3615 -460 / -460 Weight last 48 hrs Weight 313 lb 3.2 oz Weight 323 lb 8 oz Physical Exam Narrative: EXAM NARRATIVE: GENERAL: Patient is alert, awake and oriented x3. NECK: No jugular vein distension. HEENT: No cyanosis. No icterus. No pallor. HEART: Irregularly irregular S1 and S2. No murmur, rub or gallop. LUNGS: Decreased breath sounds bilaterally. ABDOMEN: Firm nontender and distended. Positive bowel sounds. No guarding, rebound or tenderness. CENTRAL NERVOUS SYSTEM: Grossly nonfocal. EXTREMITIES: Lower extremities with 2+ edema bilaterally uptill thigh. Data : 07/26/20 18:43 07/29/20 05:48 A&P Assessment and plan (1) Systolic congestive heart failure with reduced left ventricular function, NYHA class 4: Continue 80 mg IV twice daily furosemide and 20 mg p.o. twice daily potassium chloride. Our goal is atleast 1.5 L negative every day. He is diuresing well with a -7.5 L net balance since admission. Continue current medications. May consider adding entresto at time of discharge Patient has good urine output Renal function is stable. Status: Acute (2) Anemia: Stable. Continue to monitor Status: Acute Qualifiers: Anemia type: iron deficiency Iron deficiency anemia type: chronic blood loss Qualified Code(s): D50.0 - Iron deficiency anemia secondary to blood loss (chronic) (3) Atrial fibrillation: Rate control continue antiarrhythmic and warfarin, check INR Status: Acute Qualifiers: Atrial fibrillation type: persistent (not longstanding) Qualified Code(s): I48.19 - Other persistent atrial fibrillation (4) CAD in [place] artery: Stable doing fine from the current disease perspective. Continue current regimen and clopidogrel Status: Acute (5) SALONI (obstructive sleep apnea): Advised using CPAP Status: Acute Attestations Medical Necessity Statement*: Care expected to cross 2 midnights. Patient needing IV diuresis. Coding Level of Care Code Acute Supervisor Core Shop for Ruma Fwd Diagnoses Systolic congestive heart failure with reduced left ventricular function, NYHA class 4 I50.20 Anemia D50.0 Anemia type: iron deficiency Iron deficiency anemia type: chronic blood loss Atrial fibrillation I48.19 Atrial fibrillation type: persistent (not longstanding) CAD in [place] artery I25.10 SALONI (obstructive sleep apnea) G47.33
[2020-07-29] MEDS: atorvastatin 40 mg Tablet PO (18:28)
[2020-07-30] VITALS (13 sets, daily range): BP systolic 95–130; BP diastolic 57–76; PULSE 59–72; RESP 16–20; TEMP 36.7–37.1; O2SAT 88–99
[2020-07-30] MEDS: FUROsemide 10 mg/mL SDV 10mL 80 MG IVP ×2 (05:53→17:49)
[2020-07-30] MEDS: potassium chloride ER 20 mEq Tablet PO ×3 (08:22→20:44)
[2020-07-30] MEDS: clopidogrel 75 mg Tablet PO (08:23)
[2020-07-30] MEDS: spironolactone 25 mg Tablet PO (08:23)
[2020-07-30] MEDS: levothyroxine 50 mcg Tablet PO (08:23)
[2020-07-30] MEDS: amiodarone 200 mg Tablet PO (08:23)
[2020-07-30] MEDS: metoprolol succinate ER (24 HR) 50 mg Tablet PO (08:23)
--- NOTE | 2020-07-30 10:04 | P.PN_ITS ---
Subjective Subjective: Interval history: Patient is feeling better. Says that his breathing is better but not at baseline yet. He wants to go home today but is still volume overloaded Vitals/I&O/Wt Last Vital Signs Temp 98.1 F 07/30/20 07:33 Pulse 63 07/30/20 09:27 Resp 20 H 07/30/20 09:21 BP 106/62 07/30/20 07:33 Pulse Ox 88 L 07/30/20 09:21 07/29/20 07/30/20 07/30/20 22:59 06:59 14:59 Intake Total 240 / 960 300 / 1260 960 / 960 Output Total 450 / 1150 300 / 1450 Balance -210 / -190 0 / -190 960 / 960 Weight last 48 hrs Weight 316 lb 3.2 oz Weight 313 lb 3.2 oz Physical Exam Narrative: EXAM NARRATIVE: GENERAL: Patient is alert, awake and oriented x3. NECK: No jugular vein distension. HEENT: No cyanosis. No icterus. No pallor. HEART: Irregularly irregular S1 and S2. No murmur, rub or gallop. LUNGS: Decreased breath sounds bilaterally. ABDOMEN: Firm nontender and distended. Positive bowel sounds. No guarding, rebound or tenderness. CENTRAL NERVOUS SYSTEM: Grossly nonfocal. EXTREMITIES: Lower extremities with 2+ edema bilaterally uptill thigh. Data : 07/26/20 18:43 07/29/20 05:48 A&P Assessment and plan (1) Systolic congestive heart failure with reduced left ventricular function, NYHA class 4: Continue 80 mg IV twice daily furosemide and 20 mg p.o. twice daily potassium chloride. Our goal is atleast 1.5 L negative every day. He has diuresed well and is about 6.5 L net balance since admission. Continue current medications. May consider adding entresto at time of discharge Patient has good urine output Renal function is stable. Will follow on todays labs. Patient wants to go home today, however i have recommended him to have 1 more day of IV diuresis as still overloaded. He has agreed to stay for tonight. Status: Acute (2) Anemia: Stable. Continue to monitor Status: Acute Qualifiers: Anemia type: iron deficiency Iron deficiency anemia type: chronic blood loss Qualified Code(s): D50.0 - Iron deficiency anemia secondary to blood loss (chronic) (3) Atrial fibrillation: Rate control continue antiarrhythmic and warfarin, check INR Status: Acute Qualifiers: Atrial fibrillation type: persistent (not longstanding) Qualified Code(s): I48.19 - Other persistent atrial fibrillation (4) CAD in [place] artery: Stable doing fine from the current disease perspective. Continue current regimen and clopidogrel Status: Acute (5) SALONI (obstructive sleep apnea): Advised using CPAP Status: Acute Attestations Medical Necessity Statement*: Care expected to cross 2 midnights. 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
[2020-07-30 11:14] LABS: Anion Gap 14.7 (5-19); Blood Urea Nitrogen 34 mg/dL (8-23); Calcium 8.5 mg/dL (8.5-10.5); Carbon Dioxide 30 mmol/L (22-29); Chloride 90 mmol/L (98-107); Glomerular Filtration Rate 61.3 mL/min (90-130); Glucose 105 mg/dL (65-115); Osmolality Calculated 280 mOsm/kg (285-295); Potassium 3.7 mmol/L (3.5-5.1); Sodium 131 mmol/L (136-145)
--- NOTE | 2020-07-30 12:49 | PC.CHAP ---
Pastoral Care Encounter/Spiritual Assessment Type of Contact [xx] Declined snow removing supervisor visit [] Patient/Family/Request visit [] Outpatient visit [] Follow-up visit [] Physician referral [] Code/Alert [] Routine visit [] Staff referral [] Actively dying [] Patient sleeping [] Family support [] [] Out of room [] Palliative care [] [] Receiving care in room [] Pre-surgical visit [] Trauma [] Long length of stay [] ICU visit [] Other: Relational/Emotional Strength [] Patient feels connected with others/family/visitors/staff [] Distress [] Loneliness/isolation [] Abandonment Spirituality of Patient [] Person of Nano [] Attends Sikhism of their [place] [] Believes in Prayer [] Reads Bible or Lutheran materials [] There are Spiritual issues to be addressed Child Care Attendant School Interventions [] Prayer [] Active listening [] Non-anxious presence [] Spiritual/emotional support [] Crisis/trauma care [] Spiritual counseling [] Bereavement support [] Provided bereavement packet [] Provided Bible/devotional materials [] Provided toy/stuffed animal, coloring book to patient or family member [] Provided Communion [] Anointing/[place] [] Salvation [] Completed spiritual assessment [] Other: Impact on Illness or Injury [] Angry [] Fearful [] Anxious [] Often cries [] Exhaustion [] Unable to work [] Unable to attend mandaen [] Unable to walk/stand [] Unable to read [] Unable to drive [] Unable to eat/drink [] Unable to sleep [] Unable to be with family [] Patient intubated [] Other: Summary Patient declined snow removing supervisor visit. Time spent with patient 1 minute
[2020-07-30] MEDS: warfarin 6 mg Tablet PO (14:02)
[2020-07-30] MEDS: atorvastatin 40 mg Tablet PO (17:49)
[2020-07-31] VITALS (7 sets, daily range): BP systolic 107–128; BP diastolic 70–86; PULSE 61–80; RESP 18–20; TEMP 36.7–36.9; O2SAT 91–96
[2020-07-31] MEDS: FUROsemide 10 mg/mL SDV 10mL 80 MG IVP (06:47)
--- NOTE | 2020-07-31 09:33 | P.DS_ITS ---
Discharge Providers Date of Admission: 07/26/20 17:32 Date of Discharge: July 31, 2020 Attending Provider at Admission: Yomi Amor MD Attending Provider at Discharge: Yomi Amor MD Primary Care Provider: Ahmet Jasso MD Diagnoses at Discharge Discharge Diagnosis (1) Systolic congestive heart failure with reduced left ventricular function, NYHA class 4: Status: Acute (2) Anemia: Status: Acute Qualifiers: Anemia type: iron deficiency Iron deficiency anemia type: chronic blood loss Qualified Code(s): D50.0 - Iron deficiency anemia secondary to blood loss (chronic) (3) Atrial fibrillation: Status: Acute Qualifiers: Atrial fibrillation type: persistent (not longstanding) Qualified Code(s): I48.19 - Other persistent atrial fibrillation (4) CAD in [place] artery: Status: Acute (5) SALONI (obstructive sleep apnea): Status: Acute Reason for Visit Reason for Visit: Decomprensatc,AFIB, Renal & Resp Failure Brief History: 59 year old male has medical history significant for noncompliance, systolic heart failure, coronary artery disease , chronic kidney disease stage III, atrial fibrillation, history of ventricular tachycardia status post ICD, hypothyroidism, groin fungal infection who few days ago left the hospital during his treatment due to water leak at home presented today in my clinic with worsening of shortness of breath PND orthopnea and anasarca. He appeared to be in decompensated state of systolic heart failure despite of optimization of m edicine and oral diuretics including metolazone. He denies chest pain though. Patient has failed outpatient treatment therefore he needs to come in for IV diuretics and optimization of medicine for worsening of heart failure Hospital Course Hospital Course 59 year old male has medical history significant for noncompliance, systolic heart failure, coronary artery disease , chronic kidney disease stage III, atrial fibrillation, history of ventricular tachycardia status post ICD, hypothyroidism, groin fungal infection who few days ago left the hospital during his treatment due to water leak at home presented today in my clinic with worsening of shortness of breath PND orthopnea and anasarca. He appeared to be in decompensated state of systolic heart failure despite of optimization of medicine and oral diuretics including metolazone. He denies chest pain though. Patient has failed outpatient treatment therefore he needs to come in for IV diuretics and optimization of medicine for worsening of heart failure Patient was started on IV lasix. He diuresed well. He was back to base line today. Will be discharged with entresto . Rest of the medications will be the same as before. Physical Exam Narrative: EXAM NARRATIVE: GENERAL: Patient is alert, awake and oriented x3. NECK: No jugular vein distension. HEENT: No cyanosis. No icterus. No pallor. HEART: Irregularly irregular S1 and S2. No murmur, rub or gallop. LUNGS: Decreased breath sounds bilaterally. ABDOMEN: Firm nontender and distended. Positive bowel sounds. No guarding, rebound or tenderness. CENTRAL NERVOUS SYSTEM: Grossly nonfocal. EXTREMITIES: Lower extremities with 2+ edema bilaterally uptill thigh. Discharge Data Data Completed and Pending: Labs from last 24 hours 07/30/20 10:45 Sodium 131 L Potassium 3.7 Chloride 90 L Carbon Dioxide 30 H Anion Gap 14.7 BUN 34 H Creatinine 1.2 GFR Calculation 61.3 L Glucose 105 Calculated Osmolal ity 280 L Calcium 8.5 Vitals: Last Vital Signs Temp 98.0 F 07/31/20 08:00 Pulse 64 07/31/20 08:00 Resp 18 07/31/20 08:00 BP 107/70 07/31/20 08:00 Pulse Ox 91 07/31/20 08:00 Discharge Plan Discharge Patient Disposition: Home Condition: Stable Prescriptions: New Entresto 24-26 mg tablet 1 tab PO BID Qty: 60 RF: 1 Continued (DME) Portable oxygen with concentrator See Rx Instructions .Route .MEDSUPPLY Qty: 1 RF: 0 albuterol sulfate 2.5 mg /3 mL (0.083 %) Solution For Nebulization 2.5 mg INHALATION Q4H PRN (Reason: Shortness Of Breath) RF: 0 amiodarone 200 mg Tablet 200 mg PO DAILY RF: 0 metoprolol succinate 50 mg Tablet Extended Release 24 Hr 50 mg PO DAILY RF: 0 spironolactone 25 mg Tablet 25 mg PO DAILY RF: 0 atorvastatin 40 mg Tablet 40 mg PO QPM RF: 0 clopidogrel 75 mg Tablet 75 mg PO DAILY RF: 0 warfarin 6 mg Tablet 6 mg PO DIRECTED RF: 0 metolazone 2.5 mg Tablet 2.5 mg PO BID RF: 0 potassium chloride 20 mEq Tablet Extended Release 20 meq PO TID RF: 0 levothyroxine 50 mcg Tablet 25 mcg PO DAILY RF: 0 Discontinued furosemide [Lasix] 40 mg Tablet 40 mg PO DAILY RF: 0 No Action Lasix 40 mg tablet 40 mg PO BID Qty: 60 RF: 3 Discharge Orders: Discharge Order (Routine); Ordered 07/31/20 Ordered By: Bret Angela Referrals: Yomi Amor MD [Physician] - 1 month ([facility] [place] will call you Sunday to set up an appointment.) Alyson Nick FNP [Nurse Practitioner] - 7-10 days ([facility] [place] will call you Sunday to set up an appointment. ) Discharge Diet: Cardiac Discharge Activity: Increase activity as tolerated Patient Instructions: Furosemide (By mouth), Heart Failure (DC), CHF Stoplight Activity Restrictions/Additional Instructions: Weigh yourself daily, on an particular day, if notice weigt gain of more than 5 pounds, please take extra dose of Furosemide Discharge Attestations Time Spent in Discharge Care*: greater than 30 min Status at Discharge: Cognitive status at discharge: cognitively intact , Behavioral status at discharge: cooperative , Quality Metrics Clinical Quality Measures During this hospital stay, did patient experience: None Coding Level of Care Code Acute Chg FW DC note Diagnoses Systolic congestive heart failure with reduced left ventricular function, NYHA class 4 I50.20 Anemia D50.0 Anemia type: iron deficiency Iron deficiency anemia type: chronic blood loss Atrial fibrillation I48.19 Atrial fibrillation type: persistent (not longstanding) CAD in [place] artery I25.10 SALONI (obstructive sleep apnea) G47.33
[2020-07-31] MEDS: clopidogrel 75 mg Tablet PO (10:13)
[2020-07-31] MEDS: potassium chloride ER 20 mEq Tablet PO (10:13)
[2020-07-31] MEDS: amiodarone 200 mg Tablet PO (10:14)
[2020-07-31] MEDS: metoprolol succinate ER (24 HR) 50 mg Tablet PO (10:14)
[2020-07-31] MEDS: levothyroxine 50 mcg Tablet PO (10:14)
[2020-07-31] MEDS: spironolactone 25 mg Tablet PO (10:15)
--- NOTE | 2020-07-31 10:28 | PC.SOCIAL ---
IMM Update Pg.2 of IMM updated and reviewed with patient who verbalized understanding. Copy provided.
--- NOTE | 2020-07-31 11:36 | PC.NURSE ---
this nurse went over discharge instructions with the patient, and he verbalized understanding of the instructions. IV was removed, bleeding controlled with 2x2 and coban, patient tolerated well. patient was taken by wheelchair down to private vehicle into the care of his spouse who had personal oxygen for the patient to be transported home on.
== END 2020-07-31 11:15 | disposition home or self-care (01) | DRG 291 ==
PROVIDERS: Internal Medicine; Admitting Provider Internal Medicine Cardiovascular Disease; PCP Internal Medicine; Visit Provider Internal Medicine Cardiovascular Disease
DX: I13.0 Hypertensive heart and chronic kidney disease with heart failure and stage 1 through stage 4 chronic kidney disease, or unspecified chronic kidney disease (principal); I50.23 Acute on chronic systolic (congestive) heart failure; I48.19 Other persistent atrial fibrillation; N18.30 Chronic kidney disease, stage 3 unspecified; D50.0 Iron deficiency anemia secondary to blood loss (chronic); I25.10 Atherosclerotic heart disease of native coronary artery without angina pectoris; G47.33 Obstructive sleep apnea (adult) (pediatric); E78.5 Hyperlipidemia, unspecified; E03.9 Hypothyroidism, unspecified; J43.1 Panlobular emphysema; I73.9 Peripheral vascular disease, unspecified; F17.210 Nicotine dependence, cigarettes, uncomplicated; Z86.73 Personal history of transient ischemic attack (TIA), and cerebral infarction without residual deficits; I25.2 Old myocardial infarction; Z79.01 Long term (current) use of anticoagulants; Z79.02 Long term (current) use of antithrombotics/antiplatelets; Z99.81 Dependence on supplemental oxygen; Z98.61 Coronary angioplasty status; Z95.810 Presence of automatic (implantable) cardiac defibrillator
CPT/HCPCS: 36415; 80048; 85025; 85610; 85730; 93005; 94640; 94660; 94762; J1940; J7611

== ENCOUNTER → 2020-08-11 12:51 | Day surgery (SDC) | payer MEDICARE, SELFPAY ==
[2020-08-11 13:17] VITALS: BP 143/97; PULSE 64; RESP 20; TEMP 36.7; O2SAT 96
[2020-08-11 13:32] VITALS: BMI 45.3
--- NOTE | 2020-08-11 14:00 | US_ITS ---
WS: [id number] ULTRASOUND ABDOMEN LIMITED CLINICAL INFORMATION: R18.8 - Other ascites COMPARISON: None. FINDINGS: Ultrasound used for paracentesis marking. Moderate ascites. US/US abdomen limited [id number] IMPRESSION: Ultrasound used for paracentesis marking.
[2020-08-11 14:01] LABS: INR 1.44 (0.8-1.2)
[2020-08-11 15:39] LABS: Body Fluid WBC 355 /uL; Monocytes # Body Fluid 0.315
[2020-08-11 15:56] LABS: Apprearance, Body Fluid CLOUDY; Color, Body Fluid YELLOW; PATH Referral YES
[2020-08-11 16:03] VITALS: BP 120/78; PULSE 63; RESP 18; O2SAT 98
--- NOTE | 2020-08-11 16:11 | PM.ACPR ---
Acute Procedures Paracentesis: Time out performed: Yes Indication: Ascites Procedure: diagnostic paracentesis Location: RLQ Local anesthetic used: lidocaine 1% Amount of anesthesia used (ml): 10 Bedside ultrasound used: yes, Ascites confirmed and location marked Preparation: sterile prep and drape and 11 blade used to make kim in skin Amount of fluid obtained (ml): 9,000 Fluid: cloudy Post procedure exam: awake, alert Patient tolerated procedure: well Complications: none
--- NOTE | 2020-08-11 16:47 | PC.NURSE ---
1600 Dr. Jasso at bedside. 9,000 mL clear luiz fluid removed from abdomen. Catheter removed. Exofin glue applied to right lower quad following cath removal. 2x2 and tegaderm applied as cover dressing. No bleeding or hematoma noted. VSS. Pt states he is breathing much easier and feels better. Transferred to wheelchair without difficulty. Off unit via wheelchair with personal oxygen in place at 2 liters.
[2020-08-11 17:15] LABS: Albumin Body Fluid 1.4 g/dL; Amylase Body Fluid 12 U/L; Fluid Alkaline Phos. 71 IU/L; Total Protein Body Fluid 3.7 g/dL
== END ==
LOC: GILAB 12:53
PROVIDERS: PCP Internal Medicine; Visit Provider Internal Medicine
DX: R18.8 Other ascites (principal)
CPT/HCPCS: 36415; 49082; 76705; 80500; 82042; 82150; 84075; 84157; 85610; 87015; 87070; 87075; 87116; 87205; 87206; 87801; 88112; 88305; 89050

== ENCOUNTER → 2020-08-26 11:36 | Day surgery (SDC) | payer MEDICARE, SELFPAY ==
[2020-08-26 12:18] VITALS: BP 116/79; PULSE 62; RESP 18; TEMP 36.5; O2SAT 97
[2020-08-26 13:27] VITALS: BP 116/73; PULSE 60; RESP 18; O2SAT 99
--- NOTE | 2020-08-26 13:34 | PC.NURSE ---
Addendum entered by Nelsy Ng RN 08/26/20 13:48: CORRECTION: FLUID AMOUNT REMOVED WAS 9 L Original Note: DR. SHERWOOD REMOVED CATHETER, INFORMED OF 9000 L FLUID REMOVED. PT'S VITAL SIGNS STABLE UPON DEPARTURE.
--- NOTE | 2020-08-26 14:27 | PM.ACPR ---
Acute Procedures Paracentesis: Time out performed: Yes Indication: Ascites Procedure: therapeutic paracentesis Location: LLQ Local anesthetic used: lidocaine 1% Amount of anesthesia used (ml): 10 Bedside ultrasound used: no Preparation: sterile prep and drape and 11 blade used to make kim in skin Amount of fluid obtained (ml): 9,000 Fluid: cloudy Post procedure exam: awake, alert, normal BP and normal HR Patient tolerated procedure: no complications Complications: none
== END ==
LOC: GILAB 11:39
PROVIDERS: PCP Internal Medicine; Visit Provider Internal Medicine
DX: R18.8 Other ascites (principal)
CPT/HCPCS: 49082

== ENCOUNTER → 2020-10-01 10:31 | Day surgery (SDC) | payer MEDICARE, SELFPAY ==
[2020-10-01 12:01] VITALS: BP 115/87; PULSE 62; RESP 20; TEMP 36.2; O2SAT 100; BMI 44.6
[2020-10-01 13:15] VITALS: BP 119/69; PULSE 60; RESP 20; O2SAT 100
--- NOTE | 2020-10-01 13:17 | PM.ACPR ---
Acute Procedures Paracentesis: Time out performed: Yes Indication: Ascites Procedure: therapeutic paracentesis Location: RLQ Local anesthetic used: lidocaine 1% Amount of anesthesia used (ml): 10 Amount of fluid obtained (ml): 11,600 Fluid: clear Post procedure exam: awake, alert, normal BP, normal HR and normal SpO2 Patient tolerated procedure: well Complications: none
== END ==
LOC: GILAB 10:33
PROVIDERS: PCP Internal Medicine; Visit Provider Internal Medicine
DX: R18.8 Other ascites (principal)
CPT/HCPCS: 49082

== ENCOUNTER 2020-11-09 01:35 | Inpatient (IN) | payer MEDICARE, SELFPAY ==
[2020-11-09] VITALS (17 sets, daily range): BP systolic 106–129; BP diastolic 64–90; PULSE 59–76; RESP 14–21; TEMP 36.4–36.6; O2SAT 94–100; BMI 39.1
--- NOTE | 2020-11-09 01:44 | USR_ITS ---
PROCEDURE INFORMATION: Exam: US Scrotum Exam date and time: 11/09/2020 1:44 AM Age: 60 years old Clinical indication: Scrotum pain TECHNIQUE: Imaging protocol: Real-time ultrasound of the scrotum and contents with color Doppler and image documentation. COMPARISON: US abdomen limited [id number] 08/11/2020 2:35 PM FINDINGS: Right testicle: Right testicle is 3.8 x 2 x 2.2 cm . Normal blood flow. Normal echogenicity. Left testicle: Left testicle is 4.8 x 3.1 x 3.6 cm . Normal blood flow. Normal echogenicity. Epididymides: Normal. Scrotum: There is severe scrotal edema. Small right hydrocele. Small left hydrocele. US/US scrotum [id number] IMPRESSION: 1. There is severe scrotal edema, nonspecific but can be seen in cellulitis, Marisabel's gangrene or congestive heart failure.. 2. Small bilateral hydroceles. 3. Testicles are normal
--- NOTE | 2020-11-09 01:49 | W.ED.MALEGU ---
HPI - Male Genitourinary General: Chief complaint: Urogenital-Male Stated complaint: swollen testes Time Seen by Provider: 11/09/20 01:41 Source: patient and EMS Mode of arrival: EMS Limitations: no limitations History of Present Illness: HPI Narrative: 60-year-old male states that he rolled over in bed 2 nights ago and felt a pop in his testicles states he is increased swelling and pain since then. States pain got much worse tonight and is currently an 8 out of 10 mainly in his right testicle. He does have a history of ascites and has chronic swelling to his extremities and abdomen. He states he goes in every 2 to 3 months to get his ascites drained by Dr. Jasso. He states he is also on Lasix at home. Denies any abdominal pain or shortness of breath. Denies any dysuria. [facility] ED PFSH: Medical History Anemia Atrial fibrillation CAD in [place] artery Cardiomyopathy CHF (congestive heart failure) CKD (chronic kidney disease) stage 3, GFR 30-59 ml/min CVA (cerebral vascular accident) HTN (hypertension) Hyperlipidemia Hypotension Hypothyroid Nicotine dependence, cigarettes, with unspecified nicotine-induced disorders Non-ST elevation [place] (NSTEMI) Orthostasis SALONI (obstructive sleep apnea) Pacemaker 2013- dual chamber Panlobular emphysema Paroxysmal A-fib PVD (peripheral vascular disease) Vitamin B12 deficiency Surgical History H/O coronary angioplasty 2013 H/O reduction of closed fracture ankle History of cardiac radiofrequency ablation (RFA) 04240 Hx of appendectomy S/P appendectomy Status cardiac pacemaker Family History Father Myocardial infarct Mother Myocardial infarct Other Family history of premature coronary artery disease Hypertension Social History Smoking and tobacco status: current every day smoker cigarettes Packs smoked per day: 0.5 Years cigarettes smoked: 40 [ Other cigarette details: Hx of 1PPD x 40 Years ] Quit status (tobacco): has tried quititng Second hand smoke exposure: Yes Smoking risk assessment/counseling performed?: Yes Alcohol intake: former Year of sobriety/quit date alcohol: 1979 Lives independently: Yes Household members: spouse Marital status: Current occupational status: disabled History of recent travel: No Current gender identity: Male Physical Exam Const: COMMON NORMALS: no acute distress, patient oriented x3 and healthy appearing HENMT: COMMON NORMALS: normocephalic and atraumatic HEAD & SCALP: normocephalic and atraumatic Eye: COMMON NORMALS: Equal, round and reactive pupils present and EOMs intact bilaterally PUPIL: Yes Equal, round and reactive pupils present Neck/C-Spine: COMMON NORMALS: full ROM and supple Chest: COMMONS NORMALS: normal inspection of the chest and normal palpation of entire chest wall Resp: COMMON NORMALS: normal respiratory effort, No retractions, No use of accessory muscles and clear to auscultation bilaterally AUSCULTATION: clear to auscultation bilaterally Cardio: COMMON NORMALS: regular rate, regular rhythm and No murmurs present (Cardio) RATE: regular rate RHYTHM: regular rhythm GI: COMMON NORMALS: non-tender and no masses OTHER: Swelling to abdomen noted consistent with his ascites no tenderness to his abdomen : OTHER: Swelling to bilateral testicles with tenderness especially on the right side Extremity: COMMON NORMALS: full ROM NARRATIVE EXTREMITY EXAM: 2+ edema to bilateral extremities Neuro: COMMON NORMALS: patient oriented x3, moves all extremities and no focal motor deficits Psych: COMMON NORMALS: mental status grossly normal, Normal thought process present and cooperative THOUGHT PROCESS: Normal thought process present Skin: COMMON NORMALS: no rashes or lesions noted and no wounds GENERAL SKIN EXAM: no rashes or lesions noted Course Vital Signs: Vital signs: Vital Signs Temperature 97.9 F 11/09/20 01:38 Pulse Rate 59 L 11/09/20 04:00 Respiratory Rate 16 11/09/20 04:00 Blood Pressure 123/73 11/09/20 04:00 Pulse Oximetry 99 11/09/20 04:00 MDM - Male MDM Narrative: Medical decision making narrative: Leroy presents here with increased edema and does have testicle swelling and lower extremity edema. He also has ascites and history of cirrhosis and congestive heart failure. Chest x-ray here shows pulmonary edema as well he is requiring more oxygen at baseline. Patient given Lasix here and is urinating. Spoke to hospitalist will admit for his congestive heart failure. Lab Data: Labs: Lab Results 07/10/2511/09/20 11/09/20 Range/Units 03:28 03:28 03:28 WBC 8.3 (4.0-10.0) 10^3/ uL RBC 3.54 L (4.1-5.3) 10^6/u L Hgb 9.3 L (11.7-16.6) g/dL Hct 31.7 L (42.0-52.0) % MCV 89.5 (80-94) fL MCH 26.3 L (28.0-34.0) pg MCHC 29.3 L (30.0-36.0) g/dL RDW 21.5 H (12.1-15.1) % Plt Count 252 (130-400) 10^3/c mm MPV 8.8 (7.4-10.4) fL Neut % (Auto) 66.0 % Lymph % (Auto) 17.9 % [place] % (Auto) 11.5 % Eos % (Auto) 3.0 % Baso % (Auto) 1.2 % Neut # (Auto) 5.49 (1.8-7.7) 10^3/u L Lymph # (Auto) 1.5 (0.8-4.8) 10^3/u L [place] # (Auto) 1.0 H (0.2-0.9) 10^3/u L Eos # (Auto) 0.3 (0.0-0.8) 10^3/u L Baso # (Auto) 0.1 (0.0-0.1) 10^3/u L Nucleated RBC % (a uto) 0 % Nucleated RBCs # 0.0 /100WBC Sodium 132 L (136-145) mmol/L Potassium 3.9 (3.5-5.1) mmol/L Chloride 99 (98-107) mmol/L Carbon Dioxide 25 (22-29) mmol/L Anion Gap 11.9 (5-19) BUN 16 (8-23) mg/dL Creatinine 1.2 (0.7-1.2) mg/dL GFR Calculation 61.3 L (90-130) mL/min Glucose 98 (65-115) mg/dL Calculated Osmolal ity 275 L (285-295) mOsm/k g Lactate 1.2 (0.5-2.2) mmol/L Calcium 8.2 L (8.5-10.5) mg/dL Total Bilirubin 1.6 H (0.15-1.2) mg/dL AST 15 (0-40) U/L ALT 8 (0-41) U/L Alkaline Phosphata se 225 H (40-130) IU/L NT-Pro-B Natriuret Pep 4785 H (0-125) pg/mL Total Protein 8.0 (6.6-8.7) g/dL Albumin 2.7 L (3.5-5.2) g/dL Globulin 5.3 H (1.3-4.6) g/dL Imaging Data: CT Abd/Pel: Attestation: I personally reviewed and interpreted this imaging study as follows: Radiologist's impression: [address] [address] [address] Scan Report Signed Patient: Leroy Gautam Unit #: [id number] : 1960 Age/Sex: 60 / M ADM Date: 11/09/20 Loc: ER Room/Bed: Attending Dr: Ordering Provider/Ordering MD: Henna Suarez MD Date of Service: 11/09/20 Procedure(s): CT abdomen pelvis w con* [id number] Accession Number(s): [id number] Report Number: [id number] PROCEDURE INFORMATION: Exam: CT Abdomen And Pelvis With Contrast Exam date and time: 11/09/2020 2:56 AM Age: 60 years old Clinical indication: Bloating; Prior surgery; Surgery type: Pacemaker. Cardiac stents. Appy. ; Patient HX: Abd distention with scrotal pain and swelling. ; Additional info: Abd pain TECHNIQUE: Imaging protocol: Computed tomography of the abdomen and pelvis with contrast. Radiation optimization: All CT scans at this facility use at least one of these dose optimization techniques: automated exposure control; mA and/or kV adjustment per patient size (includes targeted exams where dose is matched to clinical indication); or iterative reconstruction. Contrast material: OMNI 300; Contrast volume: 95 ml; Contrast route: INTRAVENOUS (IV); COMPARISON: CT abdomen pelvis w con* [id number] 08/02/2016 12:35 AM RADIATION DOSE METRICS: Total DLP (mGy-cm): 2508.26 FINDINGS: Lungs: Stable mild interstitial thickening in the lung bases which may be secondary fibrosis. Heart: There is mild cardiomegaly. Liver: There is cirrhotic morphology of the liver. Gallbladder and bile ducts: No wall thickening, pericholecystic fluid or stones. Pancreas: Normal. No ductal dilation. Spleen: Normal. No splenomegaly. Adrenal glands: Normal. No mass. Kidneys and ureters: 4.6 cm left renal cyst. Stomach and bowel: Unremarkable. No obstruction. No mucosal thickening. Appendix: No evidence of appendicitis. Intraperitoneal space: There is a large amount of ascites. Vasculature: Unremarkable. No abdominal aortic aneurysm. Lymph nodes: Unremarkable. No enlarged lymph nodes. Urinary bladder: Unremarkable as visualized. Reproductive: Unremarkable as visualized. Bones/joints: Unremarkable. No acute fracture. Soft tissues: Unremarkable. CT/CT abdomen pelvis w con* [id number] IMPRESSION: 1. Mild cardiomegaly. 2. Cirrhosis. 3. There is a large amount of ascites. 4. Stable mild interstitial thickening in the lung bases which may be secondary to fibrosis.. COMMENTS: Consistent with the [employer]'s Incidental Findings Committee white paper (J Am Marina Radiol 2018): Any incidental renal lesion less than 1 cm or classified as too small to characterize, or any incidental cystic renal lesion characterized as simple-appearing, is likely benign. No follow-up imaging is recommended for these lesions per consensus recommendations based on imaging criteria. Radiation Dose CTDIVOL = (mGy): DLP = 2508.26 (mGy-cm) Dictated By: Kennedy Myrick Signed By: Kennedy Myrick Signed Date/Time: 11/09/20450 DD/ 9 CXR: Radiologist's impression: [address] [place] [address] XRay Report Signed Patient: Leroy Gautam Unit #: [id number] : 1960 Age/Sex: 60 / M ADM Date: 11/09/20 Loc: ER Room/Bed: Attending Dr: Ordering Provider/Ordering MD: Henna Suarez MD Date of Service: 11/09/20 Procedure(s): XR chest 1V portable [id number] Accession Number(s): [id number] Report Number: [id number] PROCEDURE INFORMATION: Exam: XR Chest Exam date and time: 11/09/2020 4:17 AM Age: 60 years old Clinical indication: Cough and shortness of breath; Prior surgery; Surgery type: Cardiac stents. Pacemaker. ; Patient HX: Cough. SOB. TECHNIQUE: Imaging protocol: XR of the chest. Views: 1 view. COMPARISON: CR XR chest 2V insp/exp [id number] 07/01/2020 11:04 AM FINDINGS: Tubes, catheters and devices: There is left-sided pacemaker with intact leads overlying the right atrium and right ventricle. Lungs: There is enlargement of the pulmonary vascularity. There is thickening of the interstitial markings. Pleural spaces: Unremarkable. No pleural effusion. No pneumothorax. Heart/Mediastinum: The heart is mildly enlarged. Bones/joints: Unremarkable. XR/XR chest 1V portable [id number] IMPRESSION: Congestive heart failure. Discharge Plan Discharge Patient Disposition: Admitted As Inpatient Clinical Impression: Ascites Qualifiers: Ascites type: other type Qualified Code(s): R18.8 - Other ascites CHF (congestive heart failure) Qualifiers: Heart failure type: unspecified Heart failure chronicity: acute on chronic Qualified Code(s): I50.9 - Heart failure, unspecified Condition: Stable Coding Level of Care Code ED Physician Underwriter for Chg Fwd Exam Comprehensive
--- NOTE | 2020-11-09 02:56 | CTR_ITS ---
PROCEDURE INFORMATION: Exam: CT Abdomen And Pelvis With Contrast Exam date and time: 11/09/2020 2:56 AM Age: 60 years old Clinical indication: Bloating; Prior surgery; Surgery type: Pacemaker. Cardiac stents. Appy. ; Patient HX: Abd distention with scrotal pain and swelling. ; Additional info: Abd pain TECHNIQUE: Imaging protocol: Computed tomography of the abdomen and pelvis with contrast. Radiation optimization: All CT scans at this facility use at least one of these dose optimization techniques: automated exposure control; mA and/or kV adjustment per patient size (includes targeted exams where dose is matched to clinical indication); or iterative reconstruction. Contrast material: OMNI 300; Contrast volume: 95 ml; Contrast route: INTRAVENOUS (IV); COMPARISON: CT abdomen pelvis w con* [id number] 08/02/2016 12:35 AM RADIATION DOSE METRICS: Total DLP (mGy-cm): 2508.26 FINDINGS: Lungs: Stable mild interstitial thickening in the lung bases which may be secondary fibrosis. Heart: There is mild cardiomegaly. Liver: There is cirrhotic morphology of the liver. Gallbladder and bile ducts: No wall thickening, pericholecystic fluid or stones. Pancreas: Normal. No ductal dilation. Spleen: Normal. No splenomegaly. Adrenal glands: Normal. No mass. Kidneys and ureters: 4.6 cm left renal cyst. Stomach and bowel: Unremarkable. No obstruction. No mucosal thickening. Appendix: No evidence of appendicitis. Intraperitoneal space: There is a large amount of ascites. Vasculature: Unremarkable. No abdominal aortic aneurysm. Lymph nodes: Unremarkable. No enlarged lymph nodes. Urinary bladder: Unremarkable as visualized. Reproductive: Unremarkable as visualized. Bones/joints: Unremarkable. No acute fracture. Soft tissues: Unremarkable. CT/CT abdomen pelvis w con* [id number] IMPRESSION: 1. Mild cardiomegaly. 2. Cirrhosis. 3. There is a large amount of ascites. 4. Stable mild interstitial thickening in the lung bases which may be secondary to fibrosis.. COMMENTS: Consistent with the [employer]'s Incidental Findings Committee white paper (J Am Marina Radiol 2018): Any incidental renal lesion less than 1 cm or classified as too small to characterize, or any incidental cystic renal lesion characterized as simple-appearing, is likely benign. No follow-up imaging is recommended for these lesions per consensus recommendations based on imaging criteria. Radiation Dose CTDIVOL = (mGy): DLP = 2508.26 (mGy-cm)
[2020-11-09 03:42] LABS: Basophils # 0.1 10^3/uL (0.0-0.1); Basophils % 1.2 %; Eosinophils # 0.3 10^3/uL (0.0-0.8); Hematocrit 31.7 % (42.0-52.0); Hemoglobin 9.3 g/dL (11.7-16.6); Lymphocytes # 1.5 10^3/uL (0.8-4.8); Lymphocytes % 17.9 %; Mean Corpuscular HGB Conc 29.3 g/dL (30.0-36.0); Mean Corpuscular Hemoglobin 26.3 pg (28.0-34.0); Mean Corpuscular Volume 89.5 fL (80-94); Mean Platelet Volume 8.8 fL (7.4-10.4); Monocytes % 11.5 %; Neutrophils # 5.49 10^3/uL (1.8-7.7); Nucleated Red Blood Cells % 0 %; Platelet Count 252 10^3/cmm (130-400); Red Blood Count 3.54 10^6/uL (4.1-5.3); Red Cell Distribution Width 21.5 % (12.1-15.1); White Blood Count 8.3 10^3/uL (4.0-10.0)
[2020-11-09] MEDS: FUROsemide 10 mg/mL SDV 10mL 60 MG IVP ×2 (03:44→17:01)
[2020-11-09] MEDS: ondansetron 2 mg/ML SDV 2 mL 4 MG IVP (03:44)
[2020-11-09] MEDS: morphine 4 mg/mL SDV 1 mL IVP (03:44)
[2020-11-09 04:02] LABS: Lactate (Lactic Acid level) 1.2 mmol/L (0.5-2.2)
[2020-11-09 04:12] LABS: Alanine Aminotransferase 8 U/L (0-41); Albumin Level 2.7 g/dL (3.5-5.2); Alkaline Phosphatase 225 IU/L (40-130); Anion Gap 11.9 (5-19); Aspartate Amino Transferase 15 U/L (0-40); Blood Urea Nitrogen 16 mg/dL (8-23); Calcium 8.2 mg/dL (8.5-10.5); Carbon Dioxide 25 mmol/L (22-29); Chloride 99 mmol/L (98-107); Globulin 5.3 g/dL (1.3-4.6); Glomerular Filtration Rate 61.3 mL/min (90-130); Glucose 98 mg/dL (65-115); NT Pro B Type Natriuretic Pept 4785 pg/mL (0-125); Osmolality Calculated 275 mOsm/kg (285-295); Potassium 3.9 mmol/L (3.5-5.1); Sodium 132 mmol/L (136-145); Total Bilirubin 1.6 mg/dL (0.15-1.2)
--- NOTE | 2020-11-09 04:17 | XRR_ITS ---
PROCEDURE INFORMATION: Exam: XR Chest Exam date and time: 11/09/2020 4:17 AM Age: 60 years old Clinical indication: Cough and shortness of breath; Prior surgery; Surgery type: Cardiac stents. Pacemaker. ; Patient HX: Cough. SOB. TECHNIQUE: Imaging protocol: XR of the chest. Views: 1 view. COMPARISON: CR XR chest 2V insp/exp [id number] 07/01/2020 11:04 AM FINDINGS: Tubes, catheters and devices: There is left-sided pacemaker with intact leads overlying the right atrium and right ventricle. Lungs: There is enlargement of the pulmonary vascularity. There is thickening of the interstitial markings. Pleural spaces: Unremarkable. No pleural effusion. No pneumothorax. Heart/Mediastinum: The heart is mildly enlarged. Bones/joints: Unremarkable. XR/XR chest 1V portable [id number] IMPRESSION: Congestive heart failure.
[2020-11-09] MEDS: iohexol 300 mg/mL 100 mL Btl IV (04:32)
--- NOTE | 2020-11-09 05:12 | ECG_ITS ---
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
[2020-11-09 05:41] LABS: Troponin(5th) Baseline 64 ng/L (0-15)
--- NOTE | 2020-11-09 05:48 | PC.NURSE ---
Patient refuses urinary catheter.
[2020-11-09 06:34] LABS: Troponin 5 2HR 61.85 ng/L (0-15)
[2020-11-09 06:36] LABS: Troponin 5 2HR Delta -2.15 ABS# (0-10)
--- NOTE | 2020-11-09 07:12 | ECG_ITS ---
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
--- NOTE | 2020-11-09 08:23 | PC.PHAR ---
pt states his takes care of his medications-pts states the medications entered are the meds he takes-pts states the pacerone 200mg daily filled on 09/06/20 30d/s was dced
--- NOTE | 2020-11-09 09:33 | US_ITS ---
WS: [id number] ULTRASOUND-GUIDED THERAPEUTIC PARACENTESIS Procedure, risks, and complications have been explained to the patient. Consent is obtained. Utilizing aseptic technique and 1% buffered lidocaine, a small dermatome was made through which a 5 F rench Yueh catheter was inserted. Approximately 8000 ml of yellow peritoneal fluid was obtained witho ut difficulty. No complications encountered. US/[place] paracentesis abd w [id number] IMPRESSION: Uncomplicated paracentesis yielding 8000 ml of peritoneal fluid.
--- NOTE | 2020-11-09 09:35 | PC.CHAP ---
Pastoral Care Encounter/Spiritual Assessment Type of Contact [] Declined rn surgery visit [] Patient/Family/Request visit [] Outpatient visit [] Follow-up visit [] Physician referral [] Code/Alert [x] Routine visit [] Staff referral [] Actively dying [] Patient sleeping [] Family support [] [] Out of room [] Palliative care [] [] Receiving care in room [] Pre-surgical visit [] Trauma [] Long length of stay [] ICU visit [] Other: Relational/Emotional Strength [] Patient feels connected with others/family/visitors/staff [] Distress [] Loneliness/isolation [] Abandonment Spirituality of Patient [] Person of Nano [] Attends Presybeterian of their Nano [] Believes in Prayer [] Reads Bible or Worship materials [] There are Spiritual issues to be addressed 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 Interventions [x] Prayer [x] Active listening [x] Non-anxious presence [x] Spiritual/emotional support [] Crisis/trauma care [] Spiritual counseling [] Bereavement support [] Provided bereavement packet [] Provided Bible/devotional materials [] Provided toy/stuffed animal, coloring book to patient or family member [] Provided Communion [] Anointing/[place] [] Salvation [x] Completed spiritual assessment [] Other: Impact on Illness or Injury [] Angry [] Fearful [] Anxious [] Often cries [] Exhaustion [] Unable to work [] Unable to attend taoism [] Unable to walk/stand [] Unable to read [] Unable to drive [] Unable to eat/drink [] Unable to sleep [] Unable to be with family [] Patient intubated [] Other: Summary patient having a hard time... so much pain.. Time spent with patient 10 min
--- NOTE | 2020-11-09 09:36 | P.HP_ITS ---
Providers/Chief Complaint Admitting Physician: Alejandra Joel MD Primary Care Provider: Ahmet Jasso MD Chief Complaint: swollen testes History of Present Illness Leroy Gautam is a 60 year old male who reports he has had significant scrotal swelling for the last 4 to 5 days. It is somewhat painful. His abdomen and legs have been swelling as well. He reports his legs are perhaps about what they usually are. His abdomen has been slowly increasing in girth. His last paracentesis was October [address] Jasso. He denies any fevers. He reports he is not short of breath. He states he uses 2 L of oxygen at home. He denies history of Covid, and has received 1 vaccine for it. He denies any chest discomfort. While in the emergency department he received 60 mg of Lasix IV, and was admitted for treatment of congestive heart failure. Review of Systems General: Reports: 10 or more systems reviewed and unremarkable except in HPI and below Const: Denies: fever(s) or chills Eyes: Denies: change in vision ENMT: Denies: throat pain Card: Denies: chest pain Resp: Reports: wheezing; Denies: dyspnea GI: Denies: nausea : Reports: scrotal swelling Musc: Denies: neck pain Skin/Breast: Denies: rash Neuro: Denies: headache(s) Psych: Denies: anxiety or depression Endo: Denies: polyuria Lauri/Lymph: Denies: easy bruising All/Imm: Denies: urticaria Medications/Allergies Home Medications Medication Instructions Recorded Confirmed Last Taken Type Portable oxygen with concentrator #1 ea 01/16/20 11/09/20 08/25/20 Rx albuterol sulfate 2.5 mg INHALATION Q4H PRN 07/26/20 11/09/20 08/25/20 History spironolactone 25 mg PO DAILY 07/26/20 11/09/20 11/08/20 History oxygen #1 ea 08/25/20 11/09/20 08/25/20 Rx OXYGEN #1 ea 09/14/20 11/09/20 Unknown Rx metoprolol succinate 50 mg 50 mg PO DAILY #90 tab 09/16/20 11/09/20 11/08/20 Rx tablet,extended release 24 hr warfarin 6 mg tablet 6 mg PO DIRECTED #90 tab 09/16/20 11/09/2011/08/21 Rx DME: Walker #1 ea 10/05/20 11/09/20 Unknown Rx bi pap #1 ea 10/06/20 11/09/20 Unknown Rx atorvastatin 40 mg tablet 40 mg PO QPM #30 tab 10/19/20 11/09/20 11/08/20 Rx Euthyrox 50 mcg PO QAM 11/09/20 11/09/20 11/08/20 History clopidogrel 75 mg PO DAILY@11/09/20 11/09/20 11/08/20 History furosemide [Lasix] 40 mg PO BID@09,11/09/20 11/09/20 11/08/20 History metolazone 2.5 mg PO BID@,11/09/20 11/09/20 11/08/20 History potassium chloride 20 meq PO TID@09,,11/09/20 11/09/20 11/08/20 History Allergies Allergy/AdvReac Type Severity Reaction Status Date / Time No Known Allergies Allergy Verified 11/09/20 08:24 PFSH Acute PFSH: Medical History (Updated 11/09/20 @ 10:33 by Duy Roy MD) Anemia Atrial fibrillation CAD in [place] artery Cardiomyopathy CHF (congestive heart failure) Last echocardiogram 06/27 EF 42% CKD (chronic kidney disease) stage 3, GFR 30-59 ml/min CVA (cerebral vascular accident) HTN (hypertension) Hyperlipidemia Hypotension Hypothyroid Nicotine dependence, cigarettes, with unspecified nicotine-induced disorders Non-ST elevation ID (NSTEMI) Orthostasis SALONI (obstructive sleep apnea) Pacemaker 2013- dual chamber Panlobular emphysema Paroxysmal A-fib PVD (peripheral vascular disease) Vitamin B12 deficiency Surgical History H/O coronary angioplasty 2013 H/O reduction of closed fracture ankle History of cardiac radiofrequency ablation (RFA) 98359 Hx of appendectomy S/P appendectomy Status cardiac pacemaker Family History Father Myocardial infarct Mother Myocardial infarct Other Family history of premature coronary artery disease Hypertension Social History Smoking and tobacco status: current every day smoker cigarettes Packs smoked per day: 0.5 Years cigarettes smoked: 40 [ Other cigarette details: Hx of 1PPD x 40 Years ] Quit status (tobacco): has tried quititng Second hand smoke exposure: Yes Smoking risk assessment/counseling performed?: Yes Alcohol intake: former Year of sobriety/quit date alcohol: 1979 Lives independently: Yes Household members: spouse Marital status: Current occupational status: disabled History of recent travel: No Current gender identity: Male Vitals/I&O/Wt Last Vital Signs Temp 97.8 F 11/09/20 08:29 Pulse 60 11/09/20 08:29 Resp 17 11/09/20 08:29 BP 114/75 11/09/20 08:29 Pulse Ox 96 11/09/20 08:29 11/08/20 11/09/20 11/09/20 22:59 06:59 14:59 Output Total 725 / 725 Balance -725 / -725 Weight last 48 hrs Weight 127.286 kg Physical Exam Narrative: EXAM NARRATIVE: General exam is an obese white male, who is able to carry on a conversation but is somewhat hard of hearing. HEENT: Atraumatic normocephalic. Neck is supple no lymphadenopathy or thyromegaly Cardiovascular regular rate and rhythm, heart sounds distant. Implantable device noted left chest Lungs a few faint bilateral expiratory wheezes Abdomen is distended, fluid wave noticed. Positive bowel sounds. No significant tenderness. demonstrates a very edematous swollen scrotum. No significant erythema or skin breakdown. Skin see findings above Neuro no obvious focal deficits Extremities 2-3+ edema, with ichthyosis indicating chronic edema. Cap refill brisk. Data : 11/09/20 03:28 11/09/20 03:28 Other data: Calcium 8.2 Total bilirubin 1.6 AST and ALT are normal Alk phos 225 Troponin 64 with repeat of 61 BNP elevated 4785 Albumin 2.7 Chest x-ray demonstrated some interstitial changes bilaterally consistent with heart failure/fluid overload CT abdomen and pelvis demonstrated cirrhosis, ascites, interstitial thickening lung bases and mild cardiomegaly Scrotum ultrasound demonstrated edema, with normal testicles, and mild bilateral hydroceles A&P Assessment and plan (1) Scrotal edema: No evidence of infection on physical exam, nor CT. Likely this is a reflection of his tremendous ascites, and fluid overload. Status: Acute (2) Ascites: Lasix initiated in the emergency department and will continue 60 mg IV every 12 hours. Note that he is on both Lasix as well as Zaroxolyn at home. However, an ultrasound-guided paracentesis is planned for therapeutic purposes. Hopefully this can be done today or tomorrow depending upon his INR. This should improve his ascites and fluid status greatly, and initiate improvement of his scrotal edema. Status: Acute Qualifiers: Ascites type: other type Qualified Code(s): R18.8 - Other ascites (3) CHF (congestive heart failure): Patient has a history of an EF of approximately 42% June 2020. Lasix IV currently. Consider addition of EMPERATRIZ inhibitor in the future after diuresis has been completed. Presentation consistent with acute systolic heart failure. Status: Acute Qualifiers: Heart failure chronicity: acute on chronic Heart failure type: unspecified Qualified Code(s): I50.9 - Heart failure, unspecified (4) Hyponatremia: Secondary to fluid overload. Should improve with diuresis Status: Acute (5) Anemia: No evidence currently of blood loss. Continue to monitor Status: Acute Qualifiers: Anemia type: iron deficiency Iron deficiency anemia type: chronic blood loss Qualified Code(s): D50.0 - Iron deficiency anemia secondary to blood loss (chronic) (6) Atrial fibrillation: Patient with paced rhythm currently. Hold Coumadin for potential procedure. Status: Acute Qualifiers: Atrial fibrillation type: persistent (not longstanding) Qualified Code(s): I48.19 - Other persistent atrial fibrillation (7) CAD in [place] artery: Continue Plavix Continue beta-krista Status: Acute (8) SALONI (obstructive sleep apnea): Continue CPAP Status: Acute (9) Hypothyroidism: Check TSH Status: Acute Additional A&P Information Full code SCDs for DVT prophylaxis. Other anticoagulation contraindicated currently as paracentesis planned. Attestations Medical Necessity Statement*: Will need greater than 2 midnight stay for evaluation and treatment of fluid overload, acute systolic congestive heart failure, cirrhosis with significant ascites and scrotal edema. 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
[2020-11-09 10:47] LABS: INR 1.48 (0.8-1.2)
[2020-11-09 10:53] LABS: Troponin 5 6HR 60.08 ng/L (0-15)
[2020-11-09 10:54] LABS: Troponin 5 6HR Delta -3.92 ng/L (0-12)
--- NOTE | 2020-11-09 11:12 | ECG_ITS ---
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
[2020-11-09 12:02] LABS: Thyroid Stimulating Hormone 27.34 uIU/mL (0.27-4.20)
[2020-11-09 12:17] LABS: Bilirubin Urine Neg (Negative); Blood Urine Trace (Negative); Glucose Urine UA Norm (Normal); Ketones Urine Negative (Negative); Leukocyte Esterase Urine Negative (Negative); Nitrate Urine Negative (Negative); Protein Urine Neg (Negative); Specific Gravity, Urine 1.015 (1.005-1.030); Urine Appearance Clear (CLEAR); Urine Color Yellow (Yellow); Urobilinogen Urine 1 mg/dL (Negative); pH Urine 5 (5-7)
[2020-11-09 12:18] LABS: RBC Urine 0-4 /hpf (0-2)
[2020-11-09 12:19] LABS: Add Urine Culture? No; Bacteria Urine TRACE /hpf; Squamous Epithelial Cell Urine 0-4 /hpf (0-5)
--- NOTE | 2020-11-09 16:12 | PC.NURSE ---
patient refused lasix IVP at this time Dr jennings notified of late administration and patient refusal will try again
[2020-11-09] MEDS: atorvastatin 40 mg Tablet PO (17:53)
--- NOTE | 2020-11-09 18:32 | PC.NURSE ---
Paracentesis site leaking patient's paracentesis site leaked onto patient's t shirt, gown, and bed linens. T shirt was removed, gown replaced and bed linens changed.
--- NOTE | 2020-11-09 18:50 | PC.NURSE ---
Received bedside report from BERYL Carrasco. Patient resting in bed. C/p pain to scrotum 12/14. Informed Dr Joel. Doctor to place orders.
[2020-11-09] MEDS: HYDROcodone-acetaminophen 5-325 mg Tablet 1 TAB PO (20:42)
[2020-11-10] VITALS (13 sets, daily range): BP systolic 91–125; BP diastolic 50–67; PULSE 61–79; RESP 14–26; TEMP 36.2–36.6; O2SAT 91–98
[2020-11-10] MEDS: FUROsemide 10 mg/mL SDV 10mL 60 MG IVP (03:12)
[2020-11-10 04:09] LABS: Basophils # 0.1 10^3/uL (0.0-0.1); Basophils % 1.3 %; Eosinophils # 0.2 10^3/uL (0.0-0.8); Eosinophils % 3.3 %; Hematocrit 28.8 % (42.0-52.0); Hemoglobin 8.4 g/dL (11.7-16.6); Lymphocytes # 1.1 10^3/uL (0.8-4.8); Lymphocytes % 16.2 %; Mean Corpuscular HGB Conc 29.2 g/dL (30.0-36.0); Mean Corpuscular Hemoglobin 26.1 pg (28.0-34.0); Mean Corpuscular Volume 89.4 fL (80-94); Monocytes # 0.9 10^3/uL (0.2-0.9); Monocytes % 12.3 %; Neutrophils # 4.67 10^3/uL (1.8-7.7); Neutrophils % 66.5 %; Nucleated Red Blood Cells % 0 %; Platelet Count 205 10^3/cmm (130-400); Red Blood Count 3.22 10^6/uL (4.1-5.3); Red Cell Distribution Width 21.2 % (12.1-15.1)
[2020-11-10 04:21] LABS: INR 1.58 (0.8-1.2)
[2020-11-10 04:31] LABS: Alanine Aminotransferase 6 U/L (0-41); Albumin Level 2.8 g/dL (3.5-5.2); Alkaline Phosphatase 159 IU/L (40-130); Aspartate Amino Transferase 12 U/L (0-40); Blood Urea Nitrogen 17 mg/dL (8-23); Calcium 8.1 mg/dL (8.5-10.5); Carbon Dioxide 25 mmol/L (22-29); Chloride 98 mmol/L (98-107); Globulin 4.2 g/dL (1.3-4.6); Glomerular Filtration Rate 67.8 mL/min (90-130); Glucose 105 mg/dL (65-115); Magnesium 1.8 mg/dL (1.7-2.3); Osmolality Calculated 276 mOsm/kg (285-295); Sodium 132 mmol/L (136-145); Total Bilirubin 1.3 mg/dL (0.15-1.2)
[2020-11-10] MEDS: levothyroxine 75 mcg Tablet PO (05:25)
[2020-11-10] MEDS: metoprolol succinate ER (24 HR) 50 mg Tablet PO (09:10)
[2020-11-10] MEDS: metOLazone 5 MG Tablet PO (09:10)
[2020-11-10] MEDS: clopidogrel 75 mg Tablet PO (09:10)
[2020-11-10] MEDS: HYDROcodone-acetaminophen 5-325 mg Tablet 1 TAB PO (09:10)
--- NOTE | 2020-11-10 10:13 | PC.CHAP ---
Pastoral Care Encounter/Spiritual Assessment Type of Contact [] Declined biophysics professor visit [] Patient/Family/Request visit [] Outpatient visit [] Follow-up visit [] Physician referral [] Code/Alert [x] Routine visit [] Staff referral [] Actively dying [] Patient sleeping [] Family support [] [] Out of room [] Palliative care [] [] Receiving care in room [] Pre-surgical visit [] Trauma [] Long length of stay [] ICU visit [] Other: Relational/Emotional Strength [] Patient feels connected with others/family/visitors/staff [] Distress [] Loneliness/isolation [] Abandonment Spirituality of Patient [] Person of Nano [] Attends Spiritism of their [place] [] Believes in Prayer [] Reads Bible or Orthodoxy materials [] There are Spiritual issues to be addressed 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 Interventions [x] Prayer [x] Active listening [x] Non-anxious presence [x] Spiritual/emotional support [] Crisis/trauma care [] Spiritual counseling [] Bereavement support [] Provided bereavement packet [] Provided Bible/devotional materials [] Provided toy/stuffed animal, coloring book to patient or family member [] Provided Communion [] Anointing/[place] [] Salvation [x] Completed spiritual assessment [] Other: Impact on Illness or Injury [] Angry [] Fearful [] Anxious [] Often cries [] Exhaustion [] Unable to work [] Unable to attend anglican [] Unable to walk/stand [] Unable to read [] Unable to drive [] Unable to eat/drink [] Unable to sleep [] Unable to be with family [] Patient intubated [] Other: Summary patient feeling some relief from pain... did process yesterday... still a lot of discomfort Time spent with patient 15 min
--- NOTE | 2020-11-10 11:29 | PC.NURSE ---
BP mean was low, alerted nurse
--- NOTE | 2020-11-10 15:44 | P.PN_ITS ---
Subjective Subjective: Interval history: Orange reported he was doing okay this morning. He still felt as if his belly was distended but better. His scrotum was minimally better. Medications: Reviewed: Yes Vitals/I&O/Wt Last Vital Signs Temp 97.3 F L 11/10/20 11:28 Pulse 61 11/10/20 14:32 Resp 19 H 11/10/20 11:28 BP 91/50 11/10/20 11:28 Pulse Ox 97 11/10/20 14:32 11/10/20 11/10/20 11/10/20 06:59 14:59 22:59 Intake Total 540 / 780 570 / 570 Output Total 300 / 9875 750 / 750 Balance 240 / -9095 -180 / -180 Weight last 48 hrs Weight 127.286 kg Physical Exam Narrative: EXAM NARRATIVE: General exam is an obese white male no obvious distress Neck is supple no lymphadenopathy or thyromegaly Cardiovascular regular rate and rhythm, heart sounds distant. Implantable device noted left chest Lungs improved aeration. No wheezes Abdomen is distended, less so than yesterday. No tenderness. Drainage from paracentesis noted right abdomen. demonstrates a very edematous swollen scrotum. Minimal improvement from yesterday. No skin breakdown. Extremities 2-3+ edema, with ichthyosis indicating chronic edema. Cap refill brisk. Data : 11/10/20 03:57 11/10/20 03:57 A&P Assessment and plan (1) Scrotal edema: No evidence of infection on physical exam, nor CT. Likely this is a reflection of his tremendous ascites, and fluid overload. Status: Acute (2) Ascites: Lasix initiated in the emergency department Increase Lasix to 80 mg every 12 hours Add Zaroxolyn 5 mg daily Close monitoring of improvement. He did diurese yesterday significantly. May need repeat paracentesis Continue to hold Coumadin in the event this is needed Ostomy bag over ascitic fluid leak currently. Hopefully this will close over the next 48 hours. Status: Acute Qualifiers: Ascites type: other type Qualified Code(s): R18.8 - Other ascites (3) CHF (congestive heart failure): Patient has a history of an EF of approximately 42% June 2020. Increase in Lasix and addition of Zaroxolyn today. Consider addition of EMPERATRIZ inhibitor in the future after diuresis has been completed. Presentation consistent with acute systolic heart failure. Status: Acute Qualifiers: Heart failure chronicity: acute on chronic Heart failure type: unspecified Qualified Code(s): I50.9 - Heart failure, unspecified (4) Hyponatremia: Secondary to fluid overload. Should improve with diuresis. Overall unchanged Status: Acute (5) Anemia: No evidence currently of blood loss. Continue to monitor Status: Acute Qualifiers: Anemia type: iron deficiency Iron deficiency anemia type: chronic blood loss Qualified Code(s): D50.0 - Iron deficiency anemia secondary to blood loss (chronic) (6) Atrial fibrillation: Patient with paced rhythm currently. Hold Coumadin for potential procedure. Status: Acute Qualifiers: Atrial fibrillation type: persistent (not longstanding) Qualified Code(s): I48.19 - Other persistent atrial fibrillation (7) CAD in [place] artery: Continue Plavix Continue beta-krista Status: Acute (8) SALONI (obstructive sleep apnea): Continue CPAP Status: Acute (9) Hypothyroidism: Check TSH Status: Acute Additional A&P Information Full code SCDs for DVT prophylaxis. Heparin for DVT Attestations Medical Necessity Statement*: Needs continued hospitalization for further diuresis secondary to acute systolic heart failure. Coding Level of Care Code Acute Harbor Department Manager for Chg Fwd Diagnoses Scrotal edema N50.89 Ascites R18.8 Ascites type: other type CHF (congestive heart failure) I50.9 Heart failure chronicity: acute on chronic Heart failure type: unspecified Hyponatremia E87.1 Anemia D50.0 Anemia type: iron deficiency Iron deficiency anemia type: chronic blood loss Atrial fibrillation I48.19 Atrial fibrillation type: persistent (not longstanding) CAD in [place] artery I25.10 SALONI (obstructive sleep apnea) G47.33 Hypothyroidism E03.9
[2020-11-10] MEDS: heparin 5,000 unit/mL INJ 1 mL 5000 UNIT SUBCUT (16:47)
[2020-11-10] MEDS: FUROsemide 10 mg/mL SDV 10mL 80 MG IVP (16:47)
[2020-11-10] MEDS: atorvastatin 40 mg Tablet PO (17:02)
--- NOTE | 2020-11-10 19:18 | PC.NURSE ---
patient blood pressure dropped to 78/48, patient appears to be sleeping respirations even and non labored c pap in place Dr Roy notified instructions to monitor, wake patient in 20 min if no change in blood pressure upon waking pressure stabilized patient was asymptomatic
--- NOTE | 2020-11-10 19:38 | PC.NURSE ---
Received bedside report from BERYL Carrasco. Patient resting in bed. Repositioned for comfort. Patient c/o discomfort to swollen scrotum. Patient has a colostomy bag in place to paracentesis site which continues to drain clear, yellow fluid. Patient continues with generalized swelling.
[2020-11-11] VITALS (10 sets, daily range): BP systolic 103–115; BP diastolic 54–68; PULSE 58–80; RESP 12–21; TEMP 36.2–36.6; O2SAT 92–99
[2020-11-11] MEDS: temazepam 15 mg Capsule PO (01:21)
[2020-11-11] MEDS: heparin 5,000 unit/mL INJ 1 mL 5000 UNIT SUBCUT ×3 (04:37→21:06)
[2020-11-11] MEDS: FUROsemide 10 mg/mL SDV 10mL 80 MG IVP ×3 (04:52→21:06)
[2020-11-11] MEDS: levothyroxine 75 mcg Tablet PO (04:53)
--- NOTE | 2020-11-11 05:03 | PC.NURSE ---
Patient becoming more aggravated. Wants to go outside for a cigar . I am ready to get a wheelchair and leave . Patient standing with window open presently. Medications given as ordered.
--- NOTE | 2020-11-11 05:08 | PC.NURSE ---
Patient is gradually becoming more agitated. He is oriented. He just wants to go out for a cigarette. Threatening to walk out just to have said smoke. I have talked to him and he says he understands however getting adamant about the smoke. I have informed Dr Joel and have spoke with her on the telephone and received telephone order to give nicotine gum 4mg q2hr.
[2020-11-11] MEDS: nicotine 2 mg Gum 4 MG BUCCAL ×2 (05:18→08:45)
--- NOTE | 2020-11-11 05:23 | PC.NURSE ---
Patient does NOT have england catheter and continues to refuse to have england catheter placed.
--- NOTE | 2020-11-11 05:55 | PC.NURSE ---
Patient standing at window refusing to have telemetry placed. Patient is aggravated he is unable to go out to smoke.
[2020-11-11 06:00] LABS: Basophils # 0.1 10^3/uL (0.0-0.1); Basophils % 1.4 %; Eosinophils # 0.3 10^3/uL (0.0-0.8); Eosinophils % 4.2 %; Hematocrit 29.7 % (42.0-52.0); Hemoglobin 8.5 g/dL (11.7-16.6); Lymphocytes # 1.4 10^3/uL (0.8-4.8); Lymphocytes % 20.6 %; Mean Corpuscular HGB Conc 28.6 g/dL (30.0-36.0); Mean Corpuscular Hemoglobin 26.1 pg (28.0-34.0); Mean Corpuscular Volume 91.1 fL (80-94); Mean Platelet Volume 9.1 fL (7.4-10.4); Monocytes # 0.9 10^3/uL (0.2-0.9); Monocytes % 13.4 %; Neutrophils # 4.18 10^3/uL (1.8-7.7); Neutrophils % 60.1 %; Nucleated Red Blood Cells % 0 %; Platelet Count 211 10^3/cmm (130-400); Red Blood Count 3.26 10^6/uL (4.1-5.3); Red Cell Distribution Width 21.1 % (12.1-15.1)
[2020-11-11 06:17] LABS: Alanine Aminotransferase 8 U/L (0-41); Albumin Level 2.8 g/dL (3.5-5.2); Alkaline Phosphatase 186 IU/L (40-130); Anion Gap 12.7 (5-19); Aspartate Amino Transferase 19 U/L (0-40); Blood Urea Nitrogen 17 mg/dL (8-23); Calcium 8.5 mg/dL (8.5-10.5); Carbon Dioxide 27 mmol/L (22-29); Chloride 98 mmol/L (98-107); Globulin 4.2 g/dL (1.3-4.6); Glomerular Filtration Rate 61.3 mL/min (90-130); Glucose 101 mg/dL (65-115); Magnesium 1.5 mg/dL (1.7-2.3); Osmolality Calculated 280 mOsm/kg (285-295); Potassium 3.7 mmol/L (3.5-5.1); Sodium 134 mmol/L (136-145); Total Bilirubin 1.3 mg/dL (0.15-1.2)
--- NOTE | 2020-11-11 06:57 | PC.RESP ---
SMOKING CESSATION INFORMATION SENT TO PATIENT.
[2020-11-11] MEDS: clopidogrel 75 mg Tablet PO (08:46)
[2020-11-11] MEDS: metoprolol succinate ER (24 HR) 50 mg Tablet PO (08:46)
[2020-11-11] MEDS: metOLazone 5 MG Tablet PO (08:46)
[2020-11-11] MEDS: magnesium sulfate premix 2 GM/50 ML PIGGYBACK IV (08:48)
--- NOTE | 2020-11-11 11:55 | P.PN_ITS ---
Subjective Subjective: Interval history: [place] reports he is doing okay. He feels less swollen in his abdomen. Scrotum is still tight but somewhat better. Legs are still swollen. Still does not want a catheter. Medications: Reviewed: Yes Vitals/I&O/Wt Last Vital Signs Temp 97.3 F L 11/11/20 08:00 Pulse 62 11/11/20 09:43 Resp 13 11/11/20 09:43 BP 103/64 11/11/20 08:00 Pulse Ox 96 11/11/20 09:43 11/10/20 11/11/20 11/11/20 22:59 06:59 14:59 Intake Total 360 / 930 120 / 1050 Output Total 1425 / 2175 1000 / 3175 375 / 375 Balance -1065 / -1245 -880 / -2125 -375 / -375 Physical Exam Narrative: EXAM NARRATIVE: General exam is an obese white male no obvious distress, diuresed over 2 L negative yesterday. Neck is supple no lymphadenopathy or thyromegaly Cardiovascular regular rate and rhythm, heart sounds distant. Implantable device noted left chest Lungs improved aeration. No wheezes Abdomen is distended, less so than yesterday. No tenderness. Drainage from paracentesis noted right abdomen with ostomy. Drainage has lessened. demonstrates a very edematous swollen scrotum. Slight improvement Extremities 2-3+ edema, with ichthyosis indicating chronic edema. Cap refill brisk. Data : 11/11/20 04:22 11/11/20 04:22 A&P Assessment and plan (1) Scrotal edema: No evidence of infection on physical exam, nor CT. Likely this is a reflection of his tremendous ascites, and fluid overload. Status: Acute (2) Ascites: Diuresis has occurred. Renal function has remained stable. We will increase Lasix to 80 mg every 8 hours Continue Zaroxolyn 5 mg daily May need repeat paracentesis Continue to hold Coumadin in the event this is needed. Subcutaneous heparin for DVT prophylaxis. Ostomy bag over ascitic fluid leak currently. Hopefully this will close over the next 48 hours. Status: Acute Qualifiers: Ascites type: other type Qualified Code(s): R18.8 - Other ascites (3) CHF (congestive heart failure): Patient has a history of an EF of approximately 42% June 2020. Increa se in Lasix , continue Zaroxolyn today. Consider addition of EMPERATRIZ inhibitor in the future after diuresis has been completed. Presentation consistent with acute systolic heart failure. Associated with anasarca Status: Acute Qualifiers: Heart failure chronicity: acute on chronic Heart failure type: unspecified Qualified Code(s): I50.9 - Heart failure, unspecified (4) Hyponatremia: Secondary to fluid overload. Improved with diuresis. Overall unchanged Status: Acute (5) Anemia: No evidence currently of blood loss. Continue to monitor Status: Acute Qualifiers: Anemia type: iron deficiency Iron deficiency anemia type: chronic blood loss Qualified Code(s): D50.0 - Iron deficiency anemia secondary to blood loss (chronic) (6) Atrial fibrillation: Patient with paced rhythm currently. Hold Coumadin for potential procedure. Status: Acute Qualifiers: Atrial fibrillation type: persistent (not longstanding) Qualified Code(s): I48.19 - Other persistent atrial fibrillation (7) CAD in [place] artery: Continue Plavix Continue beta-krista Status: Acute (8) SALONI (obstructive sleep apnea): Continue CPAP Status: Acute (9) Hypothyroidism: TSH checked and elevated. Thyroid hormone increased. Hypomagnesemia. Supplement today. Status: Acute Additional A&P Information Full code SCDs for DVT prophylaxis. Heparin for DVT Attestations Medical Necessity Statement*: Needs continued hospitalization for further diuresis secondary to acute systolic heart failure with anasarca. Coding Level of Care Code Acute Hot Repairman for Chg Fwd Diagnoses Scrotal edema N50.89 Ascites R18.8 Ascites type: other type CHF (congestive heart failure) I50.9 Heart failure chronicity: acute on chronic Heart failure type: unspecified Hyponatremia E87.1 Anemia D50.0 Anemia type: iron deficiency Iron deficiency anemia type: chronic blood loss Atrial fibrillation I48.19 Atrial fibrillation type: persistent (not longstanding) CAD in [place] artery I25.10 SALONI (obstructive sleep apnea) G47.33 Hypothyroidism E03.9
[2020-11-11] MEDS: atorvastatin 40 mg Tablet PO (17:52)
[2020-11-11] MEDS: HYDROcodone-acetaminophen 5-325 mg Tablet 1 TAB PO (21:13)
[2020-11-12] VITALS (9 sets, daily range): BP systolic 93–105; BP diastolic 44–56; PULSE 60–63; RESP 14–18; TEMP 36.3–36.5; O2SAT 94–98
[2020-11-12] MEDS: heparin 5,000 unit/mL INJ 1 mL 5000 UNIT SUBCUT (04:56)
[2020-11-12] MEDS: FUROsemide 10 mg/mL SDV 10mL 80 MG IVP (04:56)
[2020-11-12] MEDS: HYDROcodone-acetaminophen 5-325 mg Tablet 1 TAB PO (04:57)
[2020-11-12] MEDS: levothyroxine 75 mcg Tablet PO (04:57)
[2020-11-12 05:30] LABS: Anion Gap 11.2 (5-19); Blood Urea Nitrogen 16 mg/dL (8-23); Calcium 8.5 mg/dL (8.5-10.5); Carbon Dioxide 31 mmol/L (22-29); Chloride 92 mmol/L (98-107); Glomerular Filtration Rate 61.3 mL/min (90-130); Glucose 105 mg/dL (65-115); Magnesium 1.7 mg/dL (1.7-2.3); Osmolality Calculated 274 mOsm/kg (285-295); Potassium 3.2 mmol/L (3.5-5.1); Sodium 131 mmol/L (136-145)
[2020-11-12] MEDS: metoprolol succinate ER (24 HR) 50 mg Tablet PO (08:27)
[2020-11-12] MEDS: metOLazone 5 MG Tablet PO (08:27)
[2020-11-12] MEDS: clopidogrel 75 mg Tablet PO (08:27)
--- NOTE | 2020-11-12 10:02 | PC.SOCIAL ---
IMM Pg. 2 Gave pt a copy of medicare rights and discussed. Verbalized understanding. Placed copy in chart. Initialed, timed, and dated.
[2020-11-12] MEDS: potassium chloride ER 20 mEq Tablet 40 MEQ PO (11:14)
[2020-11-12] MEDS: magnesium sulfate premix 2 GM/50 ML PIGGYBACK IV (11:16)
--- NOTE | 2020-11-12 13:32 | P.PN_ITS ---
Subjective Subjective: Interval history: Feeling better today. Scrotum less swollen. Not short of breath. Medications: Reviewed: Yes Vitals/I&O/Wt Last Vital Signs Temp 97.3 F L 11/12/20 08:00 Pulse 63 11/12/20 08:17 Resp 18 11/12/20 08:17 BP 105/54 11/12/20 08:00 Pulse Ox 95 11/12/20 08:17 11/11/20 11/12/20 11/12/20 22:59 06:59 14:59 Intake Total 410 / 650 240 / 890 240 / 240 Output Total 2230 / 3195 2900 / 6095 Balance -1820 / -2545 -2660 / -5205 240 / 240 Physical Exam Narrative: EXAM NARRATIVE: General exam is an obese white male no obvious distress, diuresed over 4 L negative yesterday. Neck is supple no lymphadenopathy or thyromegaly Cardiovascular regular rate and rhythm, heart sounds distant. Implantable device noted left chest Lungs improved aeration. No wheezes Abdomen is less distended and drainage from paracentesis site has stopped demonstrates a left swollen scrotum Extremities 2-3+ edema, with ichthyosis indicating chronic edema. Cap refill brisk. Data : 11/11/20 04:22 11/12/20 04:50 A&P Assessment and plan (1) Scrotal edema: No evidence of infection on physical exam, nor CT. Likely this is a reflection of his tremendous ascites, and fluid overload. This is improving Status: Acute (2) Ascites: Diuresis has occurred. Renal function has remained stable. Continue Lasix to 80 mg every 8 hours Hold Zaroxolyn 5 mg daily At this point is unlikely to need repeat paracentesis Continue to hold Coumadin in the event this is needed. Subcutaneous heparin for DVT prophylaxis. Ostomy bag over ascitic fluid leak currently. Hopefully this will close over e next 48 hours. Status: Acute Qualifiers: Ascites type: other type Qualified Code(s): R18.8 - Other ascites (3) CHF (congestive heart failure): Patient has a history of an EF of approximately 42% June 2020. He has evidence of anasarca. Continue IV Lasix. Hold Zaroxolyn today as becoming hyponatremic with thiazide diuretic. Renal function still stable. Consider addition of EMPERATRIZ inhibitor in the future after diuresis has been completed. Presentation consistent with acute systolic heart failure. Status: Acute Qualifiers: Heart failure chronicity: acute on chronic Heart failure type: unspecified Qualified Code(s): I50.9 - Heart failure, unspecified (4) Hyponatremia: Secondary to fluid overload. Possibly exacerbated by thiazide diuretic. We will hold Zaroxolyn today. Status: Acute (5) Anemia: No evidence currently of blood loss. Continue to monitor Status: Acute Qualifiers: Anemia type: iron deficiency Iron deficiency anemia type: chronic blood loss Qualified Code(s): D50.0 - Iron deficiency anemia secondary to blood loss (chronic) (6) Atrial fibrillation: Patient with paced rhythm currently. Hold Coumadin for potential procedure. Status: Acute Qualifiers: Atrial fibrillation type: persistent (not longstanding) Qualified Code(s): I48.19 - Other persistent atrial fibrillation (7) CAD in [place] artery: Continue Plavix Continue beta-krista Status: Acute (8) SALONI (obstructive sleep apnea): Continue CPAP Status: Acute (9) Hypothyroidism: TSH checked and elevated. Thyroid hormone increased. Hypomagnesemia. Supplement again today Status: Acute Additional A&P Information Hypokalemia, supplement Full code SCDs for DVT prophylaxis. Heparin for DVT Attestations Medical Necessity Statement*: Needs continued hospitalization for further diuresis secondary to anasarca Coding Level of Care Code Acute Electronic Equipment Repairer for Chg Fwd Diagnoses Scrotal edema N50.89 Ascites R18.8 Ascites type: other type CHF (congestive heart failure) I50.9 Heart failure chronicity: acute on chronic Heart failure type: unspecified Hyponatremia E87.1 Anemia D50.0 Anemia type: iron deficiency Iron deficiency anemia type: chronic blood loss Atrial fibrillation I48.19 Atrial fibrillation type: persistent (not longstanding) CAD in [place] artery I25.10 SALONI (obstructive sleep apnea) G47.33 Hypothyroidism E03.9
--- NOTE | 2020-11-12 14:25 | PC.CHAP ---
Pastoral Care Encounter/Spiritual Assessment Type of Contact [] Declined ladle repairman visit [] Patient/Family/Request visit [] Outpatient visit [] Follow-up visit [] Physician referral [] Code/Alert [] Routine visit [] Staff referral [] Actively dying [] Patient sleeping [] Family support [] [] Out of room [] Palliative care [] [] Receiving care in room [] Pre-surgical visit [] Trauma [] Long length of stay [] ICU visit [xx] Other: Patient is in isolation Relational/Emotional Strength [] Patient feels connected with others/family/visitors/staff [] Distress [] Loneliness/isolation [] Abandonment Spirituality of Patient [] Person of Nano [] Attends Buddhist of their Nano [] Believes in Prayer [] Reads Bible or Buddhism materials [] There are Spiritual issues to be addressed Film Replacement Orderer Interventions [] Prayer [] Active listening [] Non-anxious presence [] Spiritual/emotional support [] Crisis/trauma care [] Spiritual counseling [] Bereavement support [] Provided bereavement packet [] Provided Bible/devotional materials [] Provided toy/stuffed animal, coloring book to patient or family member [] Provided Communion [] Anointing/[place] [] Salvation [] Completed spiritual assessment [] Other: Impact on Illness or Injury [] Angry [] Fearful [] Anxious [] Often cries [] Exhaustion [] Unable to work [] Unable to attend sabianist [] Unable to walk/stand [] Unable to read [] Unable to drive [] Unable to eat/drink [] Unable to sleep [] Unable to be with family [] Patient intubated [] Other: Summary Time spent with patient
--- NOTE | 2020-11-12 19:54 | PC.NURSE ---
At 1700 after eating dinner patient reported he wanted to leave today. medical assistant secretary sent msg to Dr. Roy regarding suzi's desire to leave. Dr. Roy called the unit and asked us to encourage patient to stay through the weekend. I spoke with patient and his . Patient is adament about leaving. is encouraging patient to stay. Patient became angry and insisted he was leaving one way or another Patient signed himself out AMA.
--- NOTE | 2020-11-21 20:16 | PM.EVENT ---
Event Note Event Note: Patient left AMA day of last progress note entered. I had talked with both him and his regarding the importance of staying earlier in the day.
== END 2020-11-12 18:30 | disposition left against medical advice (07) | DRG 291 ==
LOC: ER 05:11 → ICU 07:29 → CSU 12:03 → ICU 12:03
PROVIDERS: Admitting Provider Hospitalist; Emergency Provider Emergency Medicine; PCP Internal Medicine; Visit Provider Internal Medicine
DX: I13.0 Hypertensive heart and chronic kidney disease with heart failure and stage 1 through stage 4 chronic kidney disease, or unspecified chronic kidney disease (principal); I50.23 Acute on chronic systolic (congestive) heart failure; I48.11 Longstanding persistent atrial fibrillation; R18.8 Other ascites; E87.1 Hypo-osmolality and hyponatremia; N18.30 Chronic kidney disease, stage 3 unspecified; N50.89 Other specified disorders of the male genital organs; Z99.81 Dependence on supplemental oxygen; D50.0 Iron deficiency anemia secondary to blood loss (chronic); I25.10 Atherosclerotic heart disease of native coronary artery without angina pectoris; Z98.61 Coronary angioplasty status; I42.9 Cardiomyopathy, unspecified; Z86.73 Personal history of transient ischemic attack (TIA), and cerebral infarction without residual deficits; E78.5 Hyperlipidemia, unspecified; E03.9 Hypothyroidism, unspecified; F17.210 Nicotine dependence, cigarettes, uncomplicated; I25.2 Old myocardial infarction; G47.33 Obstructive sleep apnea (adult) (pediatric); Z95.0 Presence of cardiac pacemaker; J43.1 Panlobular emphysema; I73.9 Peripheral vascular disease, unspecified; Z53.29 Procedure and treatment not carried out because of patient's decision for other reasons; E83.42 Hypomagnesemia; K74.60 Unspecified cirrhosis of liver
CPT/HCPCS: 36415; 49083; 71045; 74177; 76870; 80048; 80053; 81001; 83605; 83735; 83880; 84443; 84484; 85025; 85610; 93005; 94660; 96372; J1644; J1940; J2270; J2405; J3475; P9047; Q9967

== ENCOUNTER → 2020-12-10 07:05 | Day surgery (SDC) | payer MEDICARE, SELFPAY ==
[2020-12-10 07:50] VITALS: BP 125/81; PULSE 78; RESP 20; TEMP 36.5; O2SAT 98
--- NOTE | 2020-12-10 08:00 | US_ITS ---
WS: [id number] Abdominal ultrasound, limited. History: Evaluate for ascites. Comparison: None. All 4 quadrants are imaged by ultrasound to evaluate for ascites. Large amount of ascites in all 4 qu adrants. US/US abdomen lmt fluid [id number] IMPRESSION: Large amount of ascites.
[2020-12-10 08:02] VITALS: BMI 39.7
[2020-12-10 10:19] VITALS: BP 111/65; PULSE 62; RESP 18; TEMP 36.4; O2SAT 100
[2020-12-10 10:25] VITALS: BP 107/68; PULSE 70; RESP 18; O2SAT 100
--- NOTE | 2020-12-10 10:41 | PM.ACPR ---
Acute Procedures Paracentesis: Time out performed: Yes Indication: Ascites Procedure: therapeutic paracentesis Location: RLQ Local anesthetic used: lidocaine 1% Amount of anesthesia used (ml): 10 Preparation: sterile prep and drape and 11 blade used to make kim in skin Amount of fluid obtained (ml): 14,500 Fluid: clear Post procedure exam: awake, alert Patient tolerated procedure: well and no complications Complications: none
== END ==
LOC: GILAB 07:08
PROVIDERS: PCP Internal Medicine; Visit Provider Internal Medicine
DX: R18.8 Other ascites (principal)
CPT/HCPCS: 76705

== ENCOUNTER → 2021-01-14 10:02 | Day surgery (SDC) | payer MEDICARE, SELFPAY ==
[2021-01-14 10:20] VITALS: BP 113/73; PULSE 84; RESP 20; TEMP 36.5; O2SAT 95
[2021-01-14 10:37] VITALS: BMI 39.0
--- NOTE | 2021-01-14 10:41 | US_ITS ---
WS: [id number] ULTRASOUND ABDOMEN LIMITED CLINICAL INFORMATION: Ascites COMPARISON: None. FINDINGS: Ultrasound used for paracentesis marking. Ascites: Moderate US/US abdomen limited [id number] IMPRESSION: Moderate ascites
[2021-01-14 13:13] VITALS: BP 104/63; PULSE 63; RESP 18; O2SAT 99
--- NOTE | 2021-01-17 10:51 | PM.ACPR ---
Acute Procedures Paracentesis: Time out performed: Yes Indication: Ascites Procedure: therapeutic paracentesis Location: LLQ Local anesthetic used: lidocaine 1% Amount of anesthesia used (ml): 10 Bedside ultrasound used: yes, Ascites confirmed and location marked Preparation: sterile prep and drape and 11 blade used to make kim in skin Amount of fluid obtained (ml): 14,800 Fluid: clear Post procedure exam: awake, alert Patient tolerated procedure: well Complications: none
== END ==
PROVIDERS: PCP Internal Medicine; Visit Provider Internal Medicine
DX: R18.8 Other ascites (principal)
CPT/HCPCS: 76705

== ENCOUNTER → 2021-02-04 10:11 | Day surgery (SDC) | payer MEDICARE, SELFPAY ==
[2021-02-04 10:43] VITALS: BP 115/74; PULSE 64; RESP 20; TEMP 36.3; O2SAT 100
--- NOTE | 2021-02-04 11:00 | US_ITS ---
WS: [id number] Abdominal ultrasound, limited. History: Evaluate for ascites. Comparison: None. All 4 quadrants are imaged by ultrasound to evaluate for ascites. Large amount of ascites in all 4 qu adrants. US/US abdomen lmt fluid [id number] IMPRESSION: Large amount of ascites.
--- NOTE | 2021-02-04 12:14 | PC.NURSE ---
pt had a total of 10,000 ml yellow fluid removed.
--- NOTE | 2021-02-04 12:33 | PM.ACPR ---
Acute Procedures Paracentesis: Time out performed: Yes Indication: Ascites Procedure: therapeutic paracentesis Location: LLQ Local anesthetic used: lidocaine 1% Amount of anesthesia used (ml): 10 Bedside ultrasound used: yes, Ascites confirmed and location marked Preparation: sterile prep and drape Amount of fluid obtained (ml): 10,000 Fluid: clear Post procedure exam: awake, alert Patient tolerated procedure: well and no complications Complications: none
== END ==
PROVIDERS: PCP Internal Medicine; Visit Provider Internal Medicine
DX: R18.8 Other ascites (principal)
CPT/HCPCS: 49082; 76705

== ENCOUNTER → 2021-03-04 07:46 | Day surgery (SDC) | payer MEDICARE, SELFPAY ==
[2021-03-04 08:18] VITALS: BP 120/73; PULSE 70; RESP 18; TEMP 36.3; O2SAT 95
[2021-03-04 08:41] VITALS: BMI 39.0
--- NOTE | 2021-03-04 09:45 | PM.ACPR ---
Acute Procedures Paracentesis: Time out performed: Yes Indication: Ascites Procedure: therapeutic paracentesis Location: RLQ Local anesthetic used: lidocaine 1% Amount of anesthesia used (ml): 10 Bedside ultrasound used: no Preparation: sterile prep and drape and 11 blade used to make kim in skin Amount of fluid obtained (ml): 9,600 Fluid: clear Post procedure exam: awake, alert Patient tolerated procedure: well Complications: none
== END ==
PROVIDERS: PCP Internal Medicine; Visit Provider Internal Medicine
DX: R18.8 Other ascites (principal)
CPT/HCPCS: 49082

== ENCOUNTER → 2021-03-29 09:19 | Day surgery (SDC) | payer MEDICARE, SELFPAY ==
[2021-03-29 09:47] VITALS: BP 115/82; PULSE 67; RESP 20; TEMP 36.9; O2SAT 97; BMI 41.8
[2021-03-29 13:05] VITALS: BP 101/61
--- NOTE | 2021-03-29 16:15 | PM.ACPR ---
Acute Procedures Paracentesis: Time out performed: Yes Indication: Ascites Procedure: therapeutic paracentesis Location: LLQ Local anesthetic used: lidocaine 1% Amount of anesthesia used (ml): 10 Bedside ultrasound used: no Preparation: sterile prep and drape and 11 blade used to make kim in skin Amount of fluid obtained (ml): 13,800 Fluid: clear Post procedure exam: awake, alert, normal BP and normal HR Patient tolerated procedure: well Complications: none
== END ==
PROVIDERS: PCP Internal Medicine; Visit Provider Internal Medicine
DX: R18.8 Other ascites (principal)
CPT/HCPCS: 49082

== ENCOUNTER → 2021-04-18 06:03 | Day surgery (SDC) | payer MEDICARE, SELFPAY ==
[2021-04-18 06:30] VITALS: BP 112/77; PULSE 62; RESP 22; TEMP 36.2; O2SAT 100; BMI 37.6
== END ==
PROVIDERS: PCP Internal Medicine; Visit Provider Internal Medicine
DX: R18.8 Other ascites (principal)
CPT/HCPCS: 49082

== ENCOUNTER 2021-04-22 14:48 | Emergency (ER) | payer MEDICARE, SELFPAY ==
[2021-04-22 15:04] VITALS: BP 121/82; PULSE 62; RESP 16; TEMP 37; O2SAT 100
--- NOTE | 2021-04-22 15:09 | W.ED.WOUNDLC ---
HPI - Wound/Laceration General: Chief Complaint: Wound/Laceration Stated Complaint: L UNDER EYE WOUND CAUSED BY INK PEN Time Seen by Provider: 04/22/21 15:09 History of Present Illness: HPI narrative: Patient is a 60-year-old male comes to the ED with a small puncture wound to left side of face. Patient says he was trying to swat a fly and he accidentally poked himself in the left maxillary region on face with an ink pen. It caused some bleeding and there is a small wound. This injury occurred at 9:30 AM this morning and he has been trying to get the bleeding to stop ever since. He is currently on warfarin. Associated symptoms: Denies chills, fever(s), nausea or vomiting Review of Systems Const: Denies: fever(s), chills or fatigue Eyes: Denies: change in vision or eye discomfort ENMT: Denies: throat pain, odynophagia, nasal discharge or nasal congestion Card: Denies: chest pain, palpitations, edema, swelling of feet/ankles, dyspnea on exertion or orthopnea Resp: Denies: dyspnea, productive cough or non-productive cough GI: Denies: abdominal pain, nausea, vomiting, diarrhea, constipation or hematochezia : Denies: flank pain, difficulty urinating, dysuria or hematuria Musc: Denies: neck pain, back pain or extremity swelling Skin/Breast: Reports: new lesions (Superficial puncture wound to face.); Denies: rash Neuro: Denies: headache(s), numbness in extremities or weakness in extremities PFS ED PFSH: Medical History Anemia Atrial fibrillation CAD in [place] artery Cardiomyopathy CHF (congestive heart failure) Last echocardiogram 06/27 EF 42% CKD (chronic kidney disease) stage 3, GFR 30-59 ml/min CVA (cerebral vascular accident) HTN (hypertension) Hyperlipidemia Hypotension Hypothyroid Nicotine dependence, cigarettes, with unspecified nicotine-induced disorders Non-ST elevation TN (NSTEMI) Orthostasis SALONI (obstructive sleep apnea) Pacemaker 2013- dual chamber Panlobular emphysema Paroxysmal A-fib PVD (peripheral vascular disease) Vitamin B12 deficiency Surgical History H/O coronary angioplasty 2013 H/O reduction of closed fracture ankle History of cardiac radiofrequency ablation (RFA) 04833 Hx of appendectomy S/P appendectomy Status cardiac pacemaker Family History Father Myocardial infarct Mother Myocardial infarct Other Family history of premature coronary artery disease Hypertension Social History Smoking and tobacco status: current every day smoker cigarettes Packs smoked per day: 0.5 Years cigarettes smoked: 40 [ Other cigarette details: Hx of 1PPD x 40 Years ] Quit status (tobacco): has tried quititng Second hand smoke exposure: Yes Smoking risk assessment/counseling performed?: Yes Alcohol intake: former Year of sobriety/quit date alcohol: 1980 Lives independently: Yes Household members: spouse Marital status: Current occupational status: disabled History of recent travel: No Current gender identity: Male Physical Exam Const: COMMON NORMALS: no acute distress, patient oriented x3 and alert GENERAL APPEARANCE: cooperative and comfortable HENMT: COMMON NORMALS: normocephalic HEAD & SCALP: normocephalic FACE & SINUS: other (Small puncture wound to left maxillary region of face. Active bleeding ) MOUTH: Normal oral and palatal mucosa present THROAT: posterior oropharynx normal and uvula midline Neck/C-Spine: COMMON NORMALS: supple GENERAL: Yes normal visual inspection Resp: COMMON NORMALS: normal respiratory effort, No retractions, No use of accessory muscles and clear to auscultation bilaterally AUSCULTATION: clear to auscultation bilaterally Cardio: COMMON NORMALS: regular rate, regular rhythm, S1 normal heart sound present, S2 normal heart sound present, No gallops present (Cardio), No clicks present (Cardio), No murmurs present (Cardio) and Peripheral pulses 2+ throughout RATE: regular rate RHYTHM: regular rhythm HEART SOUNDS: S1 normal heart sound present and S2 normal heart sound present PERIPHERAL PULSES: Peripheral pulses 2+ throughout GI: COMMON NORMALS: Normal to inspection, nondistended, normoactive bowel sounds present, Soft to palpation, non-tender and no masses PALPATION: Yes Soft to palpation : COMMON NORMALS: Yes no CVA tenderness BLADDER/KIDNEY EXAM: Yes no CVA tenderness Back/Pelvis: COMMON NORMALS: no CVA tenderness Neuro: COMMON NORMALS: patient oriented x3 and moves all extremities SENSORIUM/ORIENTATION: Yes alert Skin: NARRATIVE SKIN EXAM: Small puncture wound to left maxillary region of face. Active bleeding noted. GENERAL SKIN EXAM: dry skin Course ED course: I soaked gauze with lidocaine 1% with epi solution and then placed it over the bleeding puncture wound and applied pressure to help control bleeding. Bleeding slowed significantly. The nurse then applied some Xeroform bandage over puncture wound on face and bleeding was controlled. Patient was discharged and told to follow-up with PCP in 5 to 7 days reevaluation. Return to ED precautions given. Patient understood and agree with plan. Vital Signs: Vital signs: Vital Signs Temperature 98.6 F 04/22/21 15:04 Pulse Rate 62 04/22/21 15:04 Respiratory Rate 16 04/22/21 15:04 Blood Pressure 121/82 04/22/21 15:04 Pulse Oximetry 100 04/22/21 15:04 MDM - Wound/Laceration MDM Narrative: Medical decision making narrative: Patient is a 58-year-old male had a small superficial puncture wound on left maxillary region of face. It was still actively bleeding here in the ED. I soaked gauze with lidocaine 1% with epi solution and then placed it over the bleeding puncture wound and applied pressure to help control bleeding. Bleeding slowed significantly. The nurse then applied some Xeroform bandage over puncture wound on face and bleeding was controlled. Patient was discharged and told to follow-up with PCP in 5 to 7 days reevaluation. Return to ED precautions given. Patient understood and agree with plan. Discharge Plan Discharge Patient Disposition: Home Clinical Impression: Puncture wound Condition: Stable Prescriptions: No Action doxycycline hyclate 100 mg capsule 100 mg PO BID Qty: 10 RF: 0 albuterol sulfate 0.63 mg/3 mL solution for nebulization 0.63 mg inhalation QID PRN (Reason: shortness of breath or wheezing) Qty: 90 RF: 0 lidocaine (PF) 10 mg/mL (1 %) solution 10 mg SUBCUT ONCE Qty: 1 RF: 0 (DME) Portable oxygen with concentrator See Rx Instructions .Route .MEDSUPPLY Qty: 1 RF: 0 (DME) oxygen aerosol See Rx Instructions .Route .MEDSUPPLY Qty: 1 RF: 0 (DME) OXYGEN See Rx Instructions .Route .MEDSUPPLY Qty: 1 RF: 0 warfarin 6 mg tablet 6 mg PO DIRECTED Qty: 90 RF: 3 (DME) DME: Walker Unit See Rx Instructions .Route Qty: 1 RF: 0 (DME) bi pap See Rx Instructions .Route .MEDSUPPLY Qty: 1 RF: 0 atorvastatin 40 mg tablet 40 mg PO QPM Qty: 30 RF: 6 Euthyrox 50 mcg tablet 50 mcg PO QAM Qty: 30 RF: 3 spironolactone 25 mg tablet 12.5 mg PO DAILY Qty: 90 RF: 3 metoprolol succinate 25 mg tablet extended release 24 hr 12.5 mg PO DAILY Qty: 90 RF: 3 albuterol sulfate 2.5 mg /3 mL (0.083 %) solution for nebulization 2.5 mg INHALATION Q4H PRN (Reason: Shortness Of Breath) Qty: 90 RF: 3 furosemide [Lasix] 40 mg tablet 40 mg PO BID@, RF: 0 metolazone 2.5 mg tablet 2.5 mg PO BID@, RF: 0 clopidogrel 75 mg tablet 75 mg PO DAILY@ RF: 0 potassium chloride 20 mEq tablet extended release 20 meq PO TID@,, RF: 0 Discharge Orders: Discharge ED (Routine); Ordered 04/22/21 Ordered By: Nico Mariano Referrals: Ahmet Jasso MD [Primary Care Provider] - Discharge Diet: Regular Discharge Activity: Increase activity as tolerated Patient Instructions: Puncture Wound (DC) Activity Restrictions/Additional Instructions: Follow-up with medical provider as directed in 5 to 7 days for reevaluation. Keep pressure bandage on wound to control bleeding until tomorrow morning. After that you can remove bandage and reassess. If you soak through current pressure bandage, use another gauze and apply pressure on wound to help control bleeding. Return to the ER or your medical provider if condition worsens. Please read and understand discharge instructions. Thank you for choosing [facility] for your healthcare needs today. Please realize this is an emergency room and that we are providing you with a medical screening exam and this may not be complete and all inclusive of all the testing and or work up that you may need to determine your ailment or severity of your illness. It is very important that you follow up as instructed or that you return to the Emergency Department should you have concerns or if your condition changes or worsens in any way. Coding Level of Care Code ED Rabies Inspector for Ruma Fwd Exam Comprehensive
== END 2021-04-22 17:00 | disposition home or self-care (01) ==
PROVIDERS: Emergency Provider Physician Assistant; PCP Internal Medicine
DX: S01.83XA Puncture wound without foreign body of other part of head, initial encounter (principal); W26.8XXA Contact with other sharp object(s), not elsewhere classified, initial encounter; F17.210 Nicotine dependence, cigarettes, uncomplicated; Z79.01 Long term (current) use of anticoagulants
CPT/HCPCS: 99282

== ENCOUNTER 2021-05-24 10:57 | Day surgery (SDC) | payer MEDICARE, SELFPAY ==
[2021-05-18 14:33] VITALS: BMI 35.9
[2021-05-24 11:15] VITALS: BP 121/86; PULSE 74; RESP 16; TEMP 36.7; O2SAT 98
[2021-05-24 11:17] VITALS: BMI 35.9
== END 2021-05-24 12:52 | disposition home or self-care (01) ==
LOC: GILAB 11:02
PROVIDERS: PCP Internal Medicine; Visit Provider Internal Medicine
PROC: (CPT 49082; principal; 2021-05-24 12:00)
DX: R18.8 Other ascites (principal)
CPT/HCPCS: 49082

== ENCOUNTER 2021-06-28 15:38 | Inpatient (IN) | payer MEDICARE, SELFPAY ==
[2021-06-28] VITALS (7 sets, daily range): BP systolic 94–133; BP diastolic 51–65; PULSE 58–99; RESP 16–36; TEMP 37.3–38; O2SAT 88–95; BMI 37.6
--- NOTE | 2021-06-28 15:40 | ED_ITS ---
HPI - Fever General: Chief Complaint: Nausea/Vomiting/Diarrhea Stated Complaint: N/V, FEVER Time Seen by Provider: 06/28/21 15:40 History of Present Illness: Mr. Gautam is a 60-year-old gentleman with complex past medical history CHF, CKD, history of stroke, atrial fibrillation, and re current ascites requiring paracentesis who presents to the emergency department due to nausea, vomiting, and fever. Symptoms were gradual onset and initially very mild over the past week however over the past day or so have become significantly worse. He endorses symptom persistence without any specific provoking or exacerbating factors. He denies focal infectious symptoms. Symptom intensity is moderate to severe. Course has been worsening. Denies sick contacts. He has been compliant with his medication regimen. No other specific changes in health, exacerbating, relieving factors identified. Pertinent past history: other Onset (ago): day(s) Exacerbating factors: nothing Relieving factors: nothing Associated symptoms: Reports nausea and vomiting Review of Systems General: Reports: 10 or more systems reviewed and unremarkable except in HPI and below GI: Reports: nausea and vomiting [facility] ED PFSH: Medical History Anemia Atrial fibrillation CAD in [place] artery Cardiomyopathy CHF (congestive heart failure) Last echocardiogram 06/27 EF 42% CKD (chronic kidney disease) stage 3, GFR 30-59 ml/min CVA (cerebral vascular accident) HTN (hypertension) Hyperlipidemia Hypotension Hypothyroid Nicotine dependence, cigarettes, with unspecified nicotine-induced disorders Non-ST elevation [place] (NSTEMI) Orthostasis SALONI (obstructive sleep apnea) Pacemaker 2014- dual chamber Panlobular emphysema Paroxysmal A-fib PVD (peripheral vascular disease) Vitamin B12 deficiency Surgical History H/O coronary angioplasty 2013 H/O reduction of closed fracture ankle History of cardiac radiofrequency ablation (RFA) 94565 Hx of appendectomy S/P appendectomy Status cardiac pacemaker Family History Father Myocardial infarct Mother Myocardial infarct Other Family history of premature coronary artery disease Hypertension Social History Smoking and tobacco status: current every day smoker cigarettes Packs smoked per day: 0.5 Years cigarettes smoked: 40 [ Other cigarette details: Hx of 1PPD x 40 Years] Quit status (tobacco): has tried quititng Second hand smoke exposure: Yes Smoking risk assessment/counseling performed?: Yes Alcohol intake: former Year of sobriety/quit date alcohol: 1979 Lives independently: Yes Household members: spouse Marital status: Current occupational status: disabled History of recent travel: No Current gender identity: Male Physical Exam Const: COMMON NORMALS: alert GENERAL APPEARANCE: cooperative and ill appearing HENMT: COMMON NORMALS: normocephalic and atraumatic HEAD & SCALP: normocephalic and atraumatic Eye: COMMON NORMALS: conjunctivae normal CONJUNCTIVA: Yes conjunctivae normal SCLERA: sclerae normal Neck/C-Spine: COMMON NORMALS: supple GENERAL: Yes trachea midline Resp: EFFORT & INSPECTION: Yes able to speak in complete sentences and Yes tac hypneic AUSCULTATION: diminished lung sounds bilateral in the lower lung freed Cardio: COMMON NORMALS: regular rate and regular rhythm RATE: regular rate RHYTHM: regular rhythm GI: PALPATION: Yes Firmness to palpation present (GI), Yes Tenderness to palpation present (GI) (Minimal generalized), No Guarding due to palpation present (GI) and No Rigid due to palpation PERCUSSION: normal to percussion Extremity: GENERAL: Yes normal exam except as noted and No edema Neuro: COMMON NORMALS: moves all extremities SENSORIUM/ORIENTATION: Yes alert and No Orientation impaired Psych: COMMON NORMALS: mental status grossly normal and Normal thought process present THOUGHT PROCESS: Normal thought process present Procedures Paracentesis Time Out Performed: Yes Indication: possible spontaneous bacterial peritonitis Procedure: diagnostic paracentesis Location: LLQ Local Anesthetic: lidocaine 1% Amount of anesthesia used (mL): 8 Bedside Ultrasound Used: yes, Ascites confirmed and location marked Preparation: sterile prep and drape Amount of fluid obtained (mL): 30 Fluid: cloudy, bloody and sent to lab for analysis Size of Needle Used: 20 Post Procedure Exam: awake, alert, normal BP, normal HR and normal SpO2 Patient Tolerated Procedure: well Complications: none Course ED course: - Patient was seen and evaluated by me at bedside - Patient placed on cardiac monitors, IV access obtained - Initial evaluation notable for ill appearance, respiratory distress with mild exertion - Labs notable for leukocytosis, near baseline normocytic anemia. Metabolic panel mild hyponatremia and decreased bicarb. T bili is mildly elevated with normal transaminases. Procalcitonin elevated. - Antibiotics ordered given leukocytosis with elevated procalcitonin and patient developed fever in the emergency department now meeting SIRS criteria without identified source of infection. Given absence of definitive identified source imaging is warranted. - Imaging notable for cardiomegaly with right hilar to lower lobe atelectasis versus infiltrate and mild interstitial edema. CT abdomen pelvis with large v olume ascites and no other acute pathology to explain symptoms. - After informed consent obtained paracentesis was performed with somewhat sanguinous ascites fluid identified., Patient reports history of skin tears with adhesive and history of use of skin glue for ascites puncture closure which was used. - Upon serial reexamination after treatment the patient was similar to mildly improved - Based on patient history, evaluation, labs, and imaging as interpreted the most likely cause of the patient's condition is SIRS of uncertain etiology requiring hospitalization for culture surveillance and treatment with IV antibiotics. - The results of ED evaluation were discussed with the patient including plan for admission due to requirement for level of care not available if discharged to prevent significant worsening/deterioration. - Hospitalist service contacted and agreed admit the patient - Patient was admitted without further deterioration or significant events. Note: Click bubbles or prepopulated freed in note writing are used for assistance with data collection and billing and are inherently more limited than narrative and other text portions of this note. Please use narrative for additional clinical history and defer to narrative/free test for any case of contradictory information. If information appears in only free text or click bubble it should be considered present or absent as reported. Please contact note global technical writer for clarifications of clinical information or contradictory information. MDM is a brief summary, contradictory or erroneous seeming information should be clarified and full note should be reviewed. Vital Signs: Vital signs: Vital Signs Temperature 97.4 F L 07/02/21 04:00 Pulse Rate 79 07/02/21 10:27 Respiratory Rate 18 07/02/21 10:27 Blood Pressure 121/81 07/02/21 07:48 Pulse Oximetry 99 07/02/21 10:27 MDM - Fever Medical Decision Making 60-year-old gentleman with complex past medical history presenting the emergency department with vague symptoms nausea vomiting as well as generalized malaise worsening for 1 week. Patient found in emergency department to meet SIRS criteria though no definitive source of infection identified, questionable infiltrate noted on chest x-ray the patient does not specifically endorse respiratory symptoms. Paracentesis performed without complication. Admitted for culture surveillance and further IV antibiotic treatment and definitive management. Medical Records I reviewed the patient's medical records. Lab Data I reviewed the patient's lab results. : 07/02/21 03:49 07/02/21 03:49 Radiology Impressions Chest X-Ray 06/28/21 15:59 IMPRESSION: 1. Cardiomegaly. 2. Right hilar to lower lobe atelectasis versus infiltrate. 3. Mild interstitial edema. Abdomen/Pelvis CT 06/28/21 16:21 IMPRESSION: 1. Large volume ascites and presumably liver cirrhosis. No significant changes in these findings from prior. 2. Negative for bowel obstruction. No focal acute inflammatory disease process in the abdomen or pelvis identified. COMMENTS: Consistent with the [place] [employer]'s Incidental Findings Committee white paper (J Am Marina Radiol 2018): Any incidental renal lesion less than 1 cm or classified as too small to characterize, or any incidental cystic renal lesion characterized as simple-appearing, is likely benign. No follow-up imaging is recommended for these lesions per consensus recommendations based on imaging criteria. Laboratory Results WBC 16.7 10^3/uL (4.0-10.0) H 06/28/21 15:52 RBC 3.91 10^6/uL (4.1-5.3) L 06/28/21 15:52 Hgb 10.1 g/dL (11.7-16.6) L 06/28/21 15:52 Hct 33.3 % (42.0-52.0) L 06/28/21 15:52 MCV 85.2 fl (80-94) 06/28/21 15:52 MCH 25.8 pg (28.0-34.0) L 06/28/21 15:52 MCHC 30.3 g/dL (30.0-36.0) 06/28/21 15:52 RDW 18.7 % (12.1-15.1) H 06/28/21 15:52 Plt Count 185 10^3/cmm (130-400) 06/28/21 15:52 MPV 9.7 fL (7.4-10.4) 06/28/21 15:52 Neut % (Auto) 92.0 % 06/28/21 15:52 Lymph % (Auto) 2.9 % 06/28/21 15:52 Sullivan % (Auto) 3.2 % 06/28/21 15:52 Eos % (Auto) 0.0 % 06/28/21 15:52 Baso % (Auto) 0.5 % 06/28/21 15:52 Neut # (Auto) 15.41 10^3/uL (1.8-7.7) H 06/28/21 15:52 Lymph # (Auto) 0.5 10^3/uL (0.8-4.8) L 06/28/21 15:52 Sullivan # (Auto) 0.5 10^3/uL (0.2-0.9) 06/28/21 15:52 Eos # (Auto) 0.0 10^3/uL (0.0-0.8) 06/28/21 15:52 Baso # (Auto) 0.1 10^3/uL (0.0-0.1) 06/28/21 15:52 Nucleated RBC % (auto) 0 % 06/28/21 15:52 Nucleated RBCs # 0.0 /100WBC 06/28/21 15:52 Differential Comment Yes 06/28/21 20:40 PT 21.30 SECONDS (12.1-14.9) H 06/28/21 15:52 INR 1.80 (0.8-1.2) H 06/28/21 15:52 APTT 35.1 SECONDS (23.9-36.7) 06/28/21 15:52 Sodium 132 mmol/L (136-145) L 06/28/21 15:52 Potassium 3.7 mmol/L (3.5-5.1) 06/28/21 15:52 Chloride 99 mmol/L (98-107) 06/28/21 15:52 Carbon Dioxide 18 mmol/L (22-29) L 06/28/21 15:52 Anion Gap 18.7 (5-19) 06/28/21 15:52 BUN 12 mg/dL (8-23) 06/28/21 15:52 Creatinine 1.0 mg/dL (0.7-1.2) 06/28/21 15:52 GFR Calculation 75.7 mL/min (90-130) L 06/28/21 15:52 Glucose 108 mg/dL (65-115) 06/28/21 15:52 Calculated Osmolality 274 mOsm/kg (285-295) L 06/28/21 15:52 Calcium 8.5 mg/dL (8.5-10.5) 06/28/21 15:52 Total Bilirubin 1.6 mg/dL (0.15-1.2) H 06/28/21 15:52 AST 17 U/L (0-40) 06/28/21 15:52 ALT 6 U/L (0-41) 06/28/21 15:52 Alkaline Phosphatase 218 IU/L (40-130) H 06/28/21 15:52 Troponin T Baseline 74 ng/L (0-15) H 06/28/21 15:52 Troponin T 120 Minute 77.36 ng/L (0-15) H 06/28/21 18:13 Delta Troponin T 3.36 ABS# (0-10) 06/28/21 18:13 C-Reactive Protein 31.6 mg/L (0.0-4.9) H 06/28/21 15:52 NT-Pro-B Natriuret Pep 54855 pg/mL (0-125) H 06/28/21 15:52 Total Protein 8.0 g/dL (6.6-8.7) 06/28/21 15:52 Albumin 2.8 g/dL (3.5-5.2) L 06/28/21 15:52 Globulin 5.2 g/dL (1.3-4.6) H 06/28/21 15:52 Procalcitonin 18.18 ng/mL (0-0.5) H 06/28/21 15:52 Urine Color [place] (Yellow) 06/28/21 18:15 Urine Appearance Sl hazy (CLEAR) 06/28/21 18:15 Urine pH 5 (5-7) 06/28/21 18:15 Ur Specific [place] 1.025 (1.005-1.030) 06/28/21 18:15 Urine Protein Trace (Negative) 06/28/21 18:15 Urine Glucose (UA) Norm (Normal) 06/28/21 18:15 Urine Ketones 1+ (Negative) H 06/28/21 18:15 Urine Blood 2+ (Negative) H 06/28/21 18:15 Urine Nitrate Negative (Negative) 06/28/21 18:15 Urine Bilirubin 1+ (Negative) H 06/28/21 18:15 Urine Urobilinogen 8 mg/dL (Negative) H 06/28/21 18:15 Ur Leukocyte Esterase 1+ (Negative) H 06/28/21 18:15 Urine RBC 25-40 /hpf (0-2) H 06/28/21 18:15 Urine WBC 55-80 /hpf (0-5) H 06/28/21 18:15 Ur Squamous Epith Cells 5-10 /hpf (0-5) H 06/28/21 18:15 Amorphous Sediment Not Reportable 06/28/21 18:15 Urine Bacteria 4+ /hpf (NONE) H 06/28/21 18:15 Fluid Color Red 06/28/21 20:40 Fluid Appearance Cloudy 06/28/21 20:40 Fluid pH 8.0 06/28/21 20:40 Fluid WBC 266 /uL 06/28/21 20:40 Fluid RBC 14.000 10^3/uL 06/28/21 20:40 Fld Polynuclear WBCs # 0.080 06/28/21 20:40 Fld Polynuclear WBCs % 30.100 % 06/28/21 20:40 Fl Mononucl WBCs #(Auto) 0.186 06/28/21 20:40 Fl Mononuclear % Auto 69.900 % 06/28/21 20:40 Fluid Glucose 101.0 mg/dL 06/28/21 20:40 Fluid Total Protein 3.6 g/dL 06/28/21 20:40 Fluid Albumin 1.4 g/dL 06/28/21 20:40 Fluid LDH 95 U/L 06/28/21 20:40 Fluid Amylase 10 U/L 06/28/21 20:40 Fluid Alk Phosphatase 62 IU/L 06/28/21 20:40 Fluid Triglycerides 99 mg/dL (0-150) 06/28/21 20:40 Fluid Uric Acid 4 mg/dL 06/28/21 20:40 EKG Data EKG 1: I personally reviewed and interpreted this EKG as follows: EKG interpretation date: 07/26/21 EKG interpretation time: 17:15 Interpretation: Twelve-lead EKG shows an irregular rhythm at a rate of 97. No NC interval present, QRS duration 110, QTc 472. Left axis deviation. Interpretation: Atrial fibrillation. EKG 2: I personally reviewed and interpreted this EKG as follows: EKG interpretation date: 07/26/21 EKG interpretation time: 18:10 Interpretation: Twelve-lead EKG shows an irregular rhythm at a rate of 98. NC interval not present, QRS duration 108, QTc 411. Left axis deviation. Interpretation: Atrial fibrillation. Discharge Plan Discharge Patient Disposition: Placed in Observation Admit Provider: Lita Dumont Clinical Impression: SIRS (systemic inflammatory response syndrome), Nausea & vomiting Discharge Diet: Cardiac Discharge Activity: Resume usual activity Coding Level of Care Code ED Cake Tester for Chg Yael
--- NOTE | 2021-06-28 15:59 | XRR_ITS ---
PROCEDURE INFORMATION: Exam: XR Chest Exam date and time: 06/28/2021 3:59 PM Age: 60 years old Clinical indication: Other: Diminished breath sounds TECHNIQUE: Imaging protocol: XR of the chest. Views: 1 view. COMPARISON: CR XR chest 1V portable [id number] 11/09/2020 4:43 AM FINDINGS: Tubes, catheters and devices: Pacemaker. Lungs: Right hilar to lower lobe atelectasis versus infiltrate. Mild interstitial edema. Pleural spaces: Unremarkable. No pleural effusion. No pneumothorax. Heart/Mediastinum: Cardiomegaly. Bones/joints: Unremarkable. XR/XR chest 1V portable [id number] IMPRESSION: 1. Cardiomegaly. 2. Right hilar to lower lobe atelectasis versus infiltrate. 3. Mild interstitial edema.
--- NOTE | 2021-06-28 16:00 | ECG_ITS ---
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 Measurements Intervals [place] Rate: 97 P: [place]: QRS: -68 QRSD: 110 T: 101 QT: 370 QTc: 472 Interpretive Statements ATRIAL FIBRILLATION LOW QRS VOLTAGE [QRS DEFLECTION < 0.5/1.0 mV IN LIMB/CHEST LEADS] LEFT ANTERIOR FASCICULAR BLOCK [QRS AXIS <= -45, QR IN I, RS IN II] POSSIBLE ANTERIOR MYOCARDIAL INFARCTION , OF INDETERMINATE AGE INFERIOR MYOCARDIAL INFARCTION , PROBABLY OLD Compared to ECG 11/09/2020 16:45:04 Low QRS voltage now present Left anterior fascicular block now present Myocardial infarct finding now present Ventricular-paced complex(es) or rhythm no longer present Electronically Signed On 06-28-2021 17:40:17 DIRECTOR INTERNAL CONTROL by Anais Henderson M.D. [id number]
[2021-06-28 16:20] LABS: Basophils # 0.1 10^3/uL (0.0-0.1); Basophils % 0.5 %; Hematocrit 33.3 % (42.0-52.0); Hemoglobin 10.1 g/dL (11.7-16.6); Lymphocytes # 0.5 10^3/uL (0.8-4.8); Lymphocytes % 2.9 %; Mean Corpuscular HGB Conc 30.3 g/dL (30.0-36.0); Mean Corpuscular Hemoglobin 25.8 pg (28.0-34.0); Mean Corpuscular Volume 85.2 fl (80-94); Mean Platelet Volume 9.7 fL (7.4-10.4); Monocytes # 0.5 10^3/uL (0.2-0.9); Monocytes % 3.2 %; Neutrophils # 15.41 10^3/uL (1.8-7.7); Nucleated Red Blood Cells % 0 %; Platelet Count 185 10^3/cmm (130-400); Red Blood Count 3.91 10^6/uL (4.1-5.3); Red Cell Distribution Width 18.7 % (12.1-15.1); White Blood Count 16.7 10^3/uL (4.0-10.0)
--- NOTE | 2021-06-28 16:21 | CTR_ITS ---
PROCEDURE INFORMATION: Exam: CT Abdomen And Pelvis With Contrast Exam date and time: 06/28/2021 4:21 PM Age: 60 years old Clinical indication: Patient HX: N/v abdominal pain with distention; Additional info: N/v, abdominal distension TECHNIQUE: Imaging protocol: Computed tomography of the abdomen and pelvis with contrast. Radiation optimization: All CT scans at this facility use at least one of these dose optimization techniques: automated exposure control; mA and/or kV adjustment per patient size (includes targeted exams where dose is matched to clinical indication); or iterative reconstruction. Contrast material: OMNI 300; Contrast volume: 95 ml; Contrast route: INTRAVENOUS (IV); COMPARISON: CT abdomen pelvis w con* [id number] 11/09/2020 4:28 AM RADIATION DOSE METRICS: Total DLP (mGy-cm): 1892.9 FINDINGS: Tubes, catheters and devices: Cardiac leads in the right heart chambers. Lungs: Fibrotic interstitial lung changes. Pleural spaces: Small left pleural effusion. Heart: Multichamber cardiac dilation. Liver: Probable cirrhotic changes of liver. Gallbladder and bile ducts: Normal. No calcified stones. No ductal dilation. Pancreas: Normal. No ductal dilation. Spleen: Normal. No splenomegaly. Adrenal glands: Normal. No mass. Kidneys and ureters: Simple left renal lower pole cortical cyst. Negative for hydronephrosis. Stomach and bowel: Unremarkable. No obstruction. No mucosal thickening. Appendix: No evidence of appendicitis. Intraperitoneal space: Large volume diffuse ascites. No free air. Vasculature: Diffuse atherosclerosis. No aneurysm. Lymph nodes: Unremarkable. No enlarged lymph nodes. Urinary bladder: Unremarkable as visualized. Reproductive: Unremarkable as visualized. Bones/joints: Unremarkable. No acute fracture. Soft tissues: Body wall anasarca. CT/CT abdomen pelvis w con* [id number] IMPRESSION: 1. Large volume ascites and presumably liver cirrhosis. No significant changes in these findings from prior. 2. Negative for bowel obstruction. No focal acute inflammatory disease process in the abdomen or pelvis identified. COMMENTS: Consistent with the [place] [employer]'s Incidental Findings Committee white paper (J Am Marina Radiol 2018): Any incidental renal lesion less than 1 cm or classified as too small to characterize, or any incidental cystic renal lesion characterized as simple-appearing, is likely benign. No follow-up imaging is recommended for these lesions per consensus recommendations based on imaging criteria.
[2021-06-28 16:44] LABS: Partial Thromboplastin Time 35.1 SECONDS (23.9-36.7)
[2021-06-28] MEDS: ondansetron 2 mg/ML SDV 2 mL 4 MG IVP (16:51)
[2021-06-28 16:52] LABS: Troponin(5th) Baseline 74 ng/L (0-15)
[2021-06-28 16:58] LABS: NT Pro B Type Natriuretic Pept 13188 pg/mL (0-125); Procalcitonin 18.18 ng/mL (0-0.5)
[2021-06-28 17:11] LABS: Alanine Aminotransferase 6 U/L (0-41); Albumin Level 2.8 g/dL (3.5-5.2); Alkaline Phosphatase 218 IU/L (40-130); Aspartate Amino Transferase 17 U/L (0-40); Blood Urea Nitrogen 12 mg/dL (8-23); C Reactive Protein 31.6 mg/L (0.0-4.9); Calcium 8.5 mg/dL (8.5-10.5); Carbon Dioxide 18 mmol/L (22-29); Chloride 99 mmol/L (98-107); Creatinine Clr Calc Pharmacy 102.0153; Globulin 5.2 g/dL (1.3-4.6); Glomerular Filtration Rate 75.7 mL/min (90-130); Glucose 108 mg/dL (65-115); Osmolality Calculated 274 mOsm/kg (285-295); Sodium 132 mmol/L (136-145); Total Bilirubin 1.6 mg/dL (0.15-1.2)
[2021-06-28 17:12] LABS: Anion Gap 18.7 (5-19); Potassium 3.7 mmol/L (3.5-5.1)
[2021-06-28] MEDS: metoclopramide 5 mg/mL SDV 2 mL 10 MG IVP (17:58)
--- NOTE | 2021-06-28 18:00 | ECG_ITS ---
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 Measurements Intervals [place] Rate: 98 P: [place]: QRS: -81 QRSD: 108 T: 95 QT: 321 QTc: 411 Interpretive Statements ATRIAL FIBRILLATION LOW QRS VOLTAGE IN EXTREMITY LEADS LEFT ANTERIOR FASCICULAR BLOCK [QRS AXIS <= -45, QR IN I, RS IN II] POSSIBLE ANTERIOR MYOCARDIAL INFARCTION , PROBABLY OLD INFERIOR MYOCARDIAL INFARCTION , PROBABLY OLD Compared to ECG 06/28/2021 17:13:19 No significant changes Electronically Signed On 06-28-2021 20:45:50 ITALIAN LECTURER by Anais Henderson M.D. [id number]
[2021-06-28 18:41] LABS: Troponin 5 2HR 77.36 ng/L (0-15)
[2021-06-28 18:44] LABS: Troponin 5 2HR Delta 3.36 ABS# (0-10)
[2021-06-28 18:51] LABS: Add Urine Microscopic? YES; Bilirubin Urine 1+ (Negative); Blood Urine 2+ (Negative); Glucose Urine UA Norm (Normal); Ketones Urine 1+ (Negative); Leukocyte Esterase Urine 1+ (Negative); Nitrate Urine Negative (Negative); Protein Urine Trace (Negative); RBC Urine 25-40 /hpf (0-2); Specific Gravity, Urine 1.025 (1.005-1.030); Urine Appearance SL Hazy (CLEAR); Urine Color Orange (Yellow); Urobilinogen Urine 8 mg/dL (Negative); WBC Urine 55-80 /hpf (0-5); pH Urine 5 (5-7)
[2021-06-28 18:52] LABS: Add Urine Culture? Yes; Bacteria Urine 4+ /hpf
[2021-06-28] MEDS: iohexol 300 mg/mL 100 mL Btl IV (19:49)
[2021-06-28] MEDS: lidocaine 1% INJ 20 mL INJECTION ×2 (20:32)
[2021-06-28] MEDS: piperacillin-tazobactam 4.5 GM in sodium chloride 0.9% (plus) 50 ML IV (20:59)
[2021-06-28] MEDS: morphine 4 mg/mL SDV 1 mL IVP (21:00)
[2021-06-28 21:03] LABS: Body Fluid WBC 266 /uL; Monocytes # Body Fluid 0.186
[2021-06-28 21:06] LABS: Apprearance, Body Fluid CLOUDY; Color, Body Fluid RED; PATH Referral YES
[2021-06-28 21:22] LABS: Albumin Body Fluid 1.4 g/dL; Amylase Body Fluid 10 U/L; Fluid Alkaline Phos. 62 IU/L; LDH Body Fluid 95 U/L; Total Protein Body Fluid 3.6 g/dL; Triglycerides Body Fluid 99 mg/dL (0-150); Uric Acid Body Fluid 4 mg/dL
[2021-06-28] MEDS: vancomycin 1,500 MG/300 ML PIGGYBACK 200 MG IV (21:31)
[2021-06-28 21:58] LABS: Troponin 5 6HR 73.56 ng/L (0-15)
--- NOTE | 2021-06-28 22:00 | ECG_ITS ---
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 Measurements Intervals [place] Rate: 81 P: [place]: QRS: -73 QRSD: 108 T: 101 QT: 401 QTc: 467 Interpretive Statements ATRIAL FIBRILLATION LOW QRS VOLTAGE [QRS DEFLECTION < 0.5/1.0 mV IN LIMB/CHEST LEADS] LEFT ANTERIOR FASCICULAR BLOCK [QRS AXIS <= -45, QR IN I, RS IN II] POSSIBLE ANTERIOR MYOCARDIAL INFARCTION , PROBABLY OLD [30 ms Q WAVE IN V3/V4, OR R < 0.2 mV IN V4] INFERIOR MYOCARDIAL INFARCTION , PROBABLY OLD [40+ ms Q WAVE AND/OR ST/T ABNORMALITY IN II/aVF] Compared to ECG 06/28/2021 18:02:13 No significant changes Electronically Signed On 06-29-2021 20:10:23 FOOD MOBILE DRIVER by Gracie Arita M.D. [id number]
[2021-06-28 22:03] LABS: Troponin 5 6HR Delta -0.44 ng/L (0-12)
[2021-06-28 23:20] LABS: Lactic Sepsis W/Reflex 1.9 mmol/L (0.5-2.2)
[2021-06-28 23:41] LABS: Adenovirus Not Detected (NOT DETECT); Chlamydia Pneumoniae Not Detected (NOT DETECT); Coronavirus 229E,HKU1,NL63,OC4 Not Detected (NOT DETECT); Human Metapneumovirus Not Detected (NOT DETECT); Human Rhinovirus/Enterovirus Not Detected (NOT DETECT); Influenza A Not Detected (NOT DETECT); Influenza A H1 Not Detected (NOT DETECT); Influenza A H1-2009 Not Detected (NOT DETECT); Influenza A H3 Not Detected (NOT DETECT); Influenza B Not Detected (NOT DETECT); Mycoplasma Pneumoniae Not Detected (NOT DETECT); Parainfluenza Virus Type 1 Not Detected (NOT DETECT); Parainfluenza Virus Type 2 Not Detected (NOT DETECT); Parainfluenza Virus Type 3 Not Detected (NOT DETECT); Parainfluenza Virus Type 4 Not Detected (NOT DETECT); Respiratory Syncytial Virus A Not Detected (NOT DETECT); Respiratory Syncytial Virus B Not Detected (NOT DETECT); SARS-COV-2 Not Detected (NOT DETECT)
[2021-06-29] VITALS (20 sets, daily range): BP systolic 91–119; BP diastolic 45–81; PULSE 62–105; RESP 16–24; TEMP 36.4–37.8; O2SAT 90–98; BMI 38.3
--- NOTE | 2021-06-29 02:22 | PM.HP ---
Providers/Chief Complaint Admitting Physician: Lita Dumont MD Primary Care Provider: Ahmet Jasso MD Chief Complaint: N/V, FEVER History of Present Illness Sarasotavincent Gautam is a 60 year old male with h/o non ischemic cardiomyopathy, right heart failure, sleep apnea, anasarca with h/o frequent paracentesis p/w c/o generalized weakness, nausea and vomiting over the past week. Noted to have t max 100.4F at the ER along with leukocytosis. Patient denies having noticed fever at home. Denies abdominal pain, diarrhea, chest pain, dyspnea. Currently on 4lpm supplemental 02 via NC, baseline 02 requierement of 4lpm Review of Systems General: Reports: 10 or more systems reviewed and unremarkable except in HPI and below Const: Denies: fever(s), chills or body aches Eyes: Denies: change in vision, blurry vision or photophobia ENMT: Reports: hoarseness; Denies: throat pain, enlarged tonsils, odynophagia or nasal congestion Card: Denies: chest pain, palpitations, irregular heart rhythm, edema, swelling of feet/ankles, lightheadedness, pre-syncope, dyspnea on exertion or orthopnea Resp: Denies: dyspnea, productive cough, non-productive cough, wheezing, stridor, pain on inspiration, change in phlegm color, hemoptysis or chest congestion GI: Denies: abdominal pain, nausea, vomiting, hematemesis, coffee ground emesis, dysphagia, heartburn, diarrhea, constipation, GI cramping, change in stool character, hematochezia or melena : Denies: flank pain, dysuria, urinary frequency, urinary urgency, urinary hesitancy or hematuria Musc: Denies: neck pain, back pain, extremity pain, joint swelling, joint warmth or deformity Neuro: Denies: headache(s), numbness in extremities, weakness in extremities, sensory changes, difficulty walking, frequent falls, dizziness, vertigo, behavioral changes, Slurred speech present or seizure-like activity Psych: Denies: anxiety, depression, suicidal ideation or homicidal ideation Endo: Denies: polyuria, polydipsia, tired all the time, cold intolerance or hot flashes Lauri/Lymph: Denies: easy bruising or easy bleeding Medications/Allergies Home Medications Medication Instructions Recorded Confirmed Last Taken Type Portable oxygen with concentrator #1 ea 01/16/20 06/28/21 03/28/21 Rx oxygen #1 ea 08/25/20 06/28/21 03/28/21 Rx OXYGEN #1 ea 09/14/20 06/28/21 03/28/21 Rx warfarin 6 mg tablet 6 mg PO DIRECTED #90 tab 09/16/20 06/28/21 05/23/21 Rx DME: Walker #1 ea 10/05/20 06/28/21 03/28/21 Rx bi pap #1 ea 10/06/20 06/28/21 03/28/21 Rx clopidogrel 75 mg tablet 75 mg PO DAILY@11/09/20 06/28/21 05/18/21 History furosemide 40 mg tablet (Lasix) 40 mg PO BID@,11/09/20 06/28/21 05/23/21 History metolazone 2.5 mg tablet 2.5 mg PO BID@,11/09/20 06/28/21 05/23/21 History potassium chloride 20 mEq 20 meq PO TID@,,03/03/21 06/28/21 05/23/21 History tablet,extended release albuterol sulfate 2.5 mg (3 mL) INHALATION Q4H PRN 04/11/21 06/28/21 05/21/21 Rx #90 ml atorvastatin 40 mg tablet 40 mg PO DAILY 06/28/21 06/28/21 Unknown History levothyroxine 50 mcg tablet 50 mcg PO DAILY 06/28/21 06/28/21 Unknown History (Euthyrox) metoprolol succinate 25 mg 25 mg PO DAILY 06/28/21 06/28/21 Unknown History tablet,extended release 24 hr spironolactone 25 mg tablet 25 mg PO DAILY 06/28/21 06/28/21 Unknown History Allergies Allergy/AdvReac Type Severity Reaction Status Date / Time No Known Allergies Allergy Verified 06/28/21 15:50 PFSH Acute PFSH: Medical History Anemia Atrial fibrillation CAD in [place] artery Cardiomyopathy CHF (congestive heart failure) Last echocardiogram 06/27 EF 42% CKD (chronic kidney disease) stage 3, GFR 30-59 ml/min CVA (cerebral vascular accident) HTN (hypertension) Hyperlipidemia Hypotension Hypothyroid Nicotine dependence, cigarettes, with unspecified nicotine-induced disorders Non-ST elevation AL (NSTEMI) Orthostasis SALONI (obstructive sleep apnea) Pacemaker 2013- dual chamber Panlobular emphysema Paroxysmal A-fib PVD (peripheral vascular disease) Vitamin B12 deficiency Surgical History H/O coronary angioplasty 2013 H/O reduction of closed fracture ankle History of cardiac radiofrequency ablation (RFA) 23948 Hx of appendectomy S/P appendectomy Status cardiac pacemaker Family History Father Myocardial infarct Mother Myocardial infarct Other Family history of premature coronary artery disease Hypertension Social History Smoking and tobacco status: current every day smoker cigarettes Packs smoked per day: 0.5 Years cigarettes smoked: 40 [ Other cigarette details: Hx of 1PPD x 40 Years] Quit status (tobacco): has tried quititng Second hand smoke exposure: Yes Smoking risk assessment/counseling performed?: Yes Alcohol intake: former Year of sobriety/quit date alcohol: 1980 Lives independently: Yes Household members: spouse Marital status: Current occupational status: disabled History of recent travel: No Current gender identity: Male Vitals/I&O/Wt Last Vital Signs Temp 98.4 F 06/29/21 01:00 Pulse 87 06/29/21 01:00 Resp 24 H 06/29/21 01:00 BP 109/63 06/29/21 01:00 Pulse Ox 95 06/29/21 01:00 06/28/21 06/28/21 06/29/21 14:59 22:59 06:59 Intake Total 350 / 350 Balance 350 / 350 Weight last 48 hrs Weight 122.47 kg Physical Exam Narrative: GEN: Awake, alert and oriented, no acute distress CVS: S1S2 N RS: B/L coarse crackles and wheezing on auscultation Abd: Soft, nt/nd , bs+ 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 Cardiomegaly. 2. Right hilar to lower lobe atelectasis versus infiltrate. 3. Mild interstitial edema. Abdomen/Pelvis CT 06/28/21 16:21 IMPRESSION: 1. Large volume ascites and presumably liver cirrhosis. No significant changes in these findings from prior. 2. Negative for bowel obstruction. No focal acute inflammatory disease process in the abdomen or pelvis identified. COMMENTS: Consistent with the [employer]'s Incidental Findings Committee white paper (J Am Marina Radiol 2018): Any incidental renal lesion less than 1 cm or classified as too small to characterize, or any incidental cystic renal lesion characterized as simple-appearing, is likely benign. No follow-up imaging is recommended for these lesions per consensus recommendations based on imaging criteria. Laboratory Results WBC 16.7 10^3/uL (4.0-10.0) H 06/28/21 15:52 RBC 3.91 10^6/uL (4.1-5.3) L 06/28/21 15:52 Hgb 10.1 g/dL (11.7-16.6) L 06/28/21 15:52 Hct 33.3 % (42.0-52.0) L 06/28/21 15:52 MCV 85.2 fl (80-94) 06/28/21 15:52 MCH 25.8 pg (28.0-34.0) L 06/28/21 15:52 MCHC 30.3 g/dL (30.0-36.0) 06/28/21 15:52 RDW 18.7 % (12.1-15.1) H 06/28/21 15:52 Plt Count 185 10^3/cmm (130-400) 06/28/21 15:52 MPV 9.7 fL (7.4-10.4) 06/28/21 15:52 Neut % (Auto) 92.0 % 06/28/21 15:52 Lymph % (Auto) 2.9 % 06/28/21 15:52 [place] % (Auto) 3.2 % 06/28/21 15:52 Eos % (Auto) 0.0 % 06/28/21 15:52 Baso % (Auto) 0.5 % 06/28/21 15:52 Neut # (Auto) 15.41 10^3/uL (1.8-7.7) H 06/28/21 15:52 Lymph # (Auto) 0.5 10^3/uL (0.8-4.8) L 06/28/21 15:52 [place] # (Auto) 0.5 10^3/uL (0.2-0.9) 06/28/21 15:52 Eos # (Auto) 0.0 10^3/uL (0.0-0.8) 06/28/21 15:52 Baso # (Auto) 0.1 10^3/uL (0.0-0.1) 06/28/21 15:52 Nucleated RBC % (auto) 0 % 06/28/21 15:52 Nucleated RBCs # 0.0 /100WBC 06/28/21 15:52 Differential Comment Yes 06/28/21 20:40 PT 21.30 SECONDS (12.1-14.9) H 06/28/21 15:52 INR 1.80 (0.8-1.2) H 06/28/21 15:52 APTT 35.1 SECONDS (23.9-36.7) 06/28/21 15:52 Sodium 132 mmol/L (136-145) L 06/28/21 15:52 Potassium 3.7 mmol/L (3.5-5.1) 06/28/21 15:52 Chloride 99 mmol/L (98-107) 06/28/21 15:52 Carbon Dioxide 18 mmol/L (22-29) L 06/28/21 15:52 Anion Gap 18.7 (5-19) 06/28/21 15:52 BUN 12 mg/dL (8-23) 06/28/21 15:52 Creatinine 1.0 mg/dL (0.7-1.2) 06/28/21 15:52 GFR Calculation 75.7 mL/min (90-130) L 06/28/21 15:52 Glucose 108 mg/dL (65-115) 06/28/21 15:52 Calculated Osmolality 274 mOsm/kg (285-295) L 06/28/21 15:52 Lactic Acid 1.9 mmol/L (0.5-2.2) 06/28/21 22:58 Calcium 8.5 mg/dL (8.5-10.5) 06/28/21 15:52 Total Bilirubin 1.6 mg/dL (0.15-1.2) H 06/28/21 15:52 AST 17 U/L (0-40) 06/28/21 15:52 ALT 6 U/L (0-41) 06/28/21 15:52 Alkaline Phosphatase 218 IU/L (40-130) H 06/28/21 15:52 Troponin T Baseline 74 ng/L (0-15) H 06/28/21 15:52 Troponin T 120 Minute 77.36 ng/L (0-15) H 06/28/21 18:13 Delta Troponin T 3.36 ABS# (0-10) 06/28/21 18:13 Troponin T Hi Sens 6Hr 73.56 ng/L (0-15) H 06/28/21 21:34 Troponin T Hi Sens 6Hr Delta -0.44 ng/L (0-12) L 06/28/21 21:34 C-Reactive Protein 31.6 mg/L (0.0-4.9) H 06/28/21 15:52 NT-Pro-B Natriuret Pep 87306 pg/mL (0-125) H 06/28/21 15:52 Total Protein 8.0 g/dL (6.6-8.7) 06/28/21 15:52 Albumin 2.8 g/dL (3.5-5.2) L 06/28/21 15:52 Globulin 5.2 g/dL (1.3-4.6) H 06/28/21 15:52 Procalcitonin 18.18 ng/mL (0-0.5) H 06/28/21 15:52 Urine Color [place] (Yellow) 06/28/21 18:15 Urine Appearance Sl hazy (CLEAR) 06/28/21 18:15 Urine pH 5 (5-7) 06/28/21 18:15 Ur Specific [place] 1.025 (1.005-1.030) 06/28/21 18:15 Urine Protein Trace (Negative) 06/28/21 18:15 Urine Glucose (UA) Norm (Normal) 06/28/21 18:15 Urine Ketones 1+ (Negative) H 06/28/21 18:15 Urine Blood 2+ (Negative) H 06/28/21 18:15 Urine Nitrate Negative (Negative) 06/28/21 18:15 Urine Bilirubin 1+ (Negative) H 06/28/21 18:15 Urine Urobilinogen 8 mg/dL (Negative) H 06/28/21 18:15 Ur Leukocyte Esterase 1+ (Negative) H 06/28/21 18:15 Urine RBC 25-40 /hpf (0-2) H 06/28/21 18:15 Urine WBC 55-80 /hpf (0-5) H 06/28/21 18:15 Ur Squamous Epith Cells 5-10 /hpf (0-5) H 06/28/21 18:15 Amorphous Sediment Not Reportable 06/28/21 18:15 Urine Bacteria 4+ /hpf (NONE) H 06/28/21 18:15 Fluid Color Red 06/28/21 20:40 Fluid Appearance Cloudy 06/28/21 20:40 Fluid pH 8.0 06/28/21 20:40 Fluid WBC 266 /uL 06/28/21 20:40 Fluid RBC 14.000 10^3/uL 06/28/21 20:40 Fld Polynuclear WBCs # 0.080 06/28/21 20:40 Fld Polynuclear WBCs % 30.100 % 06/28/21 20:40 Fl Mononucl WBCs #(Auto) 0.186 06/28/21 20:40 Fl Mononuclear % Auto 69.900 % 06/28/21 20:40 Fluid Glucose 101.0 mg/dL 06/28/21 20:40 Fluid Total Protein 3.6 g/dL 06/28/21 20:40 Fluid Albumin 1.4 g/dL 06/28/21 20:40 Fluid LDH 95 U/L 06/28/21 20:40 Fluid Amylase 10 U/L 06/28/21 20:40 Fluid Alk Phosphatase 62 IU/L 06/28/21 20:40 Fluid Triglycerides 99 mg/dL (0-150) 06/28/21 20:40 Fluid Uric Acid 4 mg/dL 06/28/21 20:40 Coronavirus 229E (PCR) Not detected (NOT DETECT) 06/28/21 21:18 SARS-CoV-2 (PCR) Not detected (NOT DETECT) 06/28/21 21:18 A&P Assessment and plan (1) SIRS (systemic inflammatory response syndrome): Status: Acute (2) Nausea & vomiting: Status: Acute (3) CHF (congestive heart failure): Status: Acute Qualifiers: Heart failure chronicity: acute on chronic Heart failure type: unspecified Qualified Code(s): I50.9 - Heart failure, unspecified (4) Anasarca: Status: Acute (5) Peritonitis: Status: Acute Plan Patient presenting with fever, leukocytosis, signs of hypervolemia Source of fever under evaluation however may be related to SBP vs UTI + UA, diagnostic paracentesis perfromed in the ER- cell count at 266 Urine cx pending. Blood cx taken priro to abx . pending body fluid cx and gram stain ceftriaxone 1 g iv q24h empirically while awaiting cx results US guided paracentesis ordered for symptomatic relief , hold warfarin for the same . INR 1.8 Clinically with hypervolemia, may be related to known CHF. Lasix 60mg iv q12h, monitor I?O, renal function Attestations Medical Necessity Statement*: anticipate >2midnight admission for management of SBP, iv abx, iv diuretics for CHF exacerbation and paracemtesis Coding Level of Care Code Acute Upper Stitcher for [facility] F[facility] Diagnoses SIRS (systemic inflammatory response syndrome) R65.10 Nausea & vomiting R11.2 CHF (congestive heart failure) I50.9 Heart failure chronicity: acute on chronic Heart failure type: unspecified Anasarca R60.1 Peritonitis K65.9
[2021-06-29] MEDS: cefTRIAXone 1,000 MG in sodium chloride 0.9% (plus) 50 ML 100 MG IV (03:06)
[2021-06-29] MEDS: FUROsemide 10 mg/mL SDV 10mL 60 MG IVP ×2 (03:20→13:11)
[2021-06-29] MEDS: ipratropium-albuterol 3 mL Neb INHALATION ×5 (04:49→20:45)
[2021-06-29 07:12] LABS: Glucose Point of Care 101 mg/dL (70-110)
[2021-06-29] MEDS: atorvastatin 40 mg Tablet PO (08:16)
[2021-06-29] MEDS: pantoprazole DR 40 mg Tablet PO (08:16)
[2021-06-29] MEDS: levothyroxine 50 mcg Tablet PO (08:16)
[2021-06-29] MEDS: metoprolol succinate ER (24 HR) 25 mg Tablet PO (08:17)
[2021-06-29] MEDS: spironolactone 25 mg Tablet PO (08:17)
[2021-06-29] MEDS: clopidogrel 75 mg Tablet PO (08:17)
[2021-06-29] MEDS: midodrine 5 mg TABLET 10 MG PO ×2 (10:03→16:19)
[2021-06-29] MEDS: piperacillin-tazobactam 3.375 GM in sodium chloride 0.9% (plus) 50 ML IV ×2 (10:03→16:21)
[2021-06-29 10:13] LABS: INR 1.84 (0.8-1.2)
--- NOTE | 2021-06-29 10:16 | PC.CHAP ---
Pastoral Care Encounter/Spiritual Assessment Type of Contact [] Declined uppers edge burnisher visit [] Patient/Family/Request visit [] Outpatient visit [] Follow-up visit [] Physician referral [] Code/Alert [x] Routine visit [] Staff referral [] Actively dying [x] Patient sleeping [] Family support [] [] Out of room [] Palliative care [] [] Receiving care in room [] Pre-surgical visit [] Trauma [] Long length of stay [] ICU visit [] Other: Relational/Emotional Strength [] Patient feels connected with others/family/visitors/staff [] Distress [] Loneliness/isolation [] Abandonment Spirituality of Patient [] Person of Nano [] Attends Latter-Day of their Nano [] Believes in Prayer [] Reads Bible or Congregation materials [] There are Spiritual issues to be addressed Hop Weigher Interventions [] Prayer [] Active listening [] Non-anxious presence [] Spiritual/emotional support [] Crisis/trauma care [] Spiritual counseling [] Bereavement support [] Provided bereavement packet [] Provided Bible/devotional materials [] Provided toy/stuffed animal, coloring book to patient or family member [] Provided Communion [] Anointing/[place] [] Salvation [] Completed spiritual assessment [] Other: Impact on Illness or Injury [] Angry [] Fearful [] Anxious [] Often cries [] Exhaustion [] Unable to work [] Unable to attend druze [] Unable to walk/stand [] Unable to read [] Unable to drive [] Unable to eat/drink [] Unable to sleep [] Unable to be with family [] Patient intubated [] Other: Summary Time spent with patient
[2021-06-29] MEDS: acetaminophen 325 mg Tablet 650 MG PO (13:41)
--- NOTE | 2021-06-29 16:21 | PM.PN ---
Subjective Subjective: Patient was seen this morning, he tells me that he continues to have abdominal distention, improved with paracentesis, but he prefers to lie on his side, as he continues to have fluids, he thinks that they took 5 L of fluid off of him, but he tells me that he overall feels significantly better, denies any shortness of breath, no chest pain, he does use 2 L of oxygen at home Vitals/I&O/Wt Last Vital Signs Temp 97.7 F 06/29/21 15:26 Pulse 71 06/29/21 15:26 Resp 18 06/29/21 15:26 BP 100/67 06/29/21 15:26 Pulse Ox 91 06/29/21 15:26 06/29/21 06/29/21 06/29/21 06:59 14:59 22:59 Intake Total 520 / 520 270 / 270 Output Total 250 / 250 1450 / 1450 Balance 270 / 270 -1180 / -1180 Weight last 48 hrs Weight 124.738 kg Weight 122.47 kg Physical Exam Const: COMMON NORMALS: no acute distress and patient oriented x3 Resp: COMMON NORMALS: normal respiratory effort, No retractions, No use of accessory muscles and clear to auscultation bilaterally AUSCULTATION: clear to auscultation bilaterally Cardio: COMMON NORMALS: regular rate, regular rhythm, S1 normal heart sound present and S2 normal heart sound present RATE: regular rate RHYTHM: regular rhythm HEART SOUNDS: S1 normal heart sound present and S2 normal heart sound present GI: INSPECTION: Yes abdominal distension AUSCULTATION: Yes normoactive bowel sounds PALPATION: No Tenderness to palpation present (GI), No Guarding due to palpation present (GI), No Rigid due to palpation and Yes Ascites present Extremity: NARRATIVE EXTREMITY EXAM: 1+ pitting edema bilateral extremities Neuro: COMMON NORMALS: patient oriented x3 Data : 06/28/21 15:52 06/28/21 15:52 Micro: Microbiology 06/28/21 15:52 Blood Culture - Preliminary Blood NEGATIVE TO DATE 06/28/21 15:52 Blood Culture - Preliminary Blood NEGATIVE TO DATE 06/28/21 20:40 Gram Stain - Final Peritoneal Fluid A&P Assessment and plan (1) SIRS (systemic inflammatory response syndrome): Status: Acute (2) Nausea & vomiting: Status: Acute (3) CHF (congestive heart failure): Status: Acute Qualifiers: Heart failure chronicity: acute on chronic Heart failure type: unspecified Qualified Code(s): I50.9 - Heart failure, unspecified (4) Anasarca: Status: Acute (5) Peritonitis: Status: Acute Plan Patient presenting with fever, leukocytosis, signs of hypervolemia Source of fever under evaluation however may be related to spontaneous bacterial and UTI + UA, diagnostic paracentesis perfromed in the ER- cell count at 266 Urine cx pending. Blood cx taken priro to abx . pending body fluid cx and gram stain We will continue Zosyn US guided paracentesis ordered for symptomatic relief , 4 L off, hold warfarin for the same , INR 1.84, might require repeat paracentesis tomorrow Clinically with hypervolemia, may be related to known CHF. 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
[2021-06-30] VITALS (13 sets, daily range): BP systolic 97–125; BP diastolic 62–90; PULSE 49–100; RESP 15–21; TEMP 36.3–37.1; O2SAT 91–97
[2021-06-30] MEDS: midodrine 5 mg TABLET 10 MG PO ×3 (01:01→18:15)
[2021-06-30] MEDS: piperacillin-tazobactam 3.375 GM in sodium chloride 0.9% (plus) 50 ML IV ×3 (02:45→18:17)
[2021-06-30 05:38] LABS: Basophils # 0.1 10^3/uL (0.0-0.1); Basophils % 0.7 %; Eosinophils # 0.1 10^3/uL (0.0-0.8); Eosinophils % 1.4 %; Hematocrit 28.5 % (42.0-52.0); Hemoglobin 8.5 g/dL (11.7-16.6); Lymphocytes # 0.8 10^3/uL (0.8-4.8); Lymphocytes % 11.1 %; Mean Corpuscular HGB Conc 29.8 g/dL (30.0-36.0); Mean Corpuscular Hemoglobin 25.5 pg (28.0-34.0); Mean Corpuscular Volume 85.6 fl (80-94); Monocytes # 0.4 10^3/uL (0.2-0.9); Monocytes % 5.7 %; Neutrophils # 5.68 10^3/uL (1.8-7.7); Neutrophils % 80.7 %; Nucleated Red Blood Cells % 0 %; Platelet Count 126 10^3/cmm (130-400); Red Blood Count 3.33 10^6/uL (4.1-5.3); Red Cell Distribution Width 18.7 % (12.1-15.1)
[2021-06-30 05:49] LABS: INR 1.89 (0.8-1.2)
[2021-06-30 05:55] LABS: Alanine Aminotransferase 6 U/L (0-41); Albumin Level 3.2 g/dL (3.5-5.2); Alkaline Phosphatase 150 IU/L (40-130); Anion Gap 15.8 (5-19); Aspartate Amino Transferase 26 U/L (0-40); Blood Urea Nitrogen 21 mg/dL (8-23); C Reactive Protein 130.5 mg/L (0.0-4.9); Calcium 8.3 mg/dL (8.5-10.5); Carbon Dioxide 19 mmol/L (22-29); Chloride 98 mmol/L (98-107); Globulin 4.4 g/dL (1.3-4.6); Glomerular Filtration Rate 67.8 mL/min (90-130); Glucose 98 mg/dL (65-115); Magnesium 1.8 mg/dL (1.7-2.3); Osmolality Calculated 271 mOsm/kg (285-295); Phosphorus 3.4 mg/dL (2.5-4.5); Potassium 3.8 mmol/L (3.5-5.1); Sodium 129 mmol/L (136-145); Total Bilirubin 1.3 mg/dL (0.15-1.2); Total Protein 7.6 g/dL (6.6-8.7)
[2021-06-30 05:57] LABS: Lactate (Lactic Acid level) 1.3 mmol/L (0.5-2.2)
[2021-06-30 06:07] LABS: NT Pro B Type Natriuretic Pept 21070 pg/mL (0-125); Procalcitonin 25.06 ng/mL (0-0.5)
[2021-06-30 06:21] LABS: Creatine Phosphokinase 470 U/L (39-308)
[2021-06-30] MEDS: ipratropium-albuterol 3 mL Neb INHALATION ×2 (08:24→14:21)
[2021-06-30] MEDS: atorvastatin 40 mg Tablet PO (09:43)
[2021-06-30] MEDS: metoprolol succinate ER (24 HR) 25 mg Tablet PO (09:43)
[2021-06-30] MEDS: levothyroxine 50 mcg Tablet PO (09:43)
[2021-06-30] MEDS: clopidogrel 75 mg Tablet PO (09:43)
[2021-06-30] MEDS: spironolactone 25 mg Tablet PO (09:44)
[2021-06-30] MEDS: pantoprazole DR 40 mg Tablet PO (09:44)
[2021-06-30] MEDS: phytonadione (ADULT) 10 mg/mL Ampule 1 mL SUBCUT (10:41)
--- NOTE | 2021-06-30 11:18 | PM.PN ---
Subjective Subjective: Patient was seen this morning, he sitting up at the side of bed, nursing staff report to me that he refused to take his Lasix last night, refused to take it this morning, he tells me that he is done with having to pee all the time, he tells me that his belly feels better, no nausea, no vomiting, no lightheadedness, no dizziness, still has bilateral knee edema, still has abdominal ascites, but feeling better he tells me Vitals/I&O/Wt Last Vital Signs Temp 98.7 F 06/30/21 09:03 Pulse 83 06/30/21 09:03 Resp 15 06/30/21 09:03 BP 97/62 06/30/21 09:03 Pulse Ox 96 06/30/21 09:03 06/29/21 06/30/21 06/30/21 22:59 06:59 14:59 Intake Total 450 / 720 100 / 820 350 / 350 Output Total 475 / 1925 Balance 450 / -730 -375 / -1105 350 / 350 Weight last 48 hrs Weight 125.758 kg Weight 124.738 kg Weight 122.47 kg Physical Exam Const: COMMON NORMALS: no acute distress and patient oriented x3 Resp: COMMON NORMALS: normal respiratory effort, No retractions, No use of accessory muscles and clear to auscultation bilaterally AUSCULTATION: clear to auscultation bilaterally Cardio: COMMON NORMALS: regular rate, regular rhythm, S1 normal heart sound present and S2 normal heart sound present RATE: regular rate RHYTHM: regular rhythm HEART SOUNDS: S1 normal heart sound present and S2 normal heart sound present GI: COMMON NORMALS: Soft to palpation INSPECTION: Yes Abdominal wall edema and Yes abdominal distension AUSCULTATION: Yes normoactive bowel sounds PALPATION: Yes Soft to palpation and No Tenderness to palpation present (GI) Extremity: NARRATIVE EXTREMITY EXAM: Bilateral 1+ pitting edema Neuro: COMMON NORMALS: patient oriented x3 Psych: COMMON NORMALS: mental status grossly normal Data : 06/30/21 05:25 06/30/21 05:25 Micro: Microbiology 06/28/21 18:15 Urine Culture - Preliminary Urine,Clean Catch Strep species, alpha hemolytic 06/28/21 15:52 Blood Culture - Preliminary Blood NEGATIVE TO DATE 06/28/21 15:52 Blood Culture - Preliminary Blood NEGATIVE TO DATE 06/28/21 20:40 Gram Stain - Final Peritoneal Fluid A&P Assessment and plan (1) SIRS (systemic inflammatory response syndrome): Status: Acute (2) Nausea & vomiting: Status: Acute (3) CHF (congestive heart failure): Status: Acute Qualifiers: Heart failure chronicity: acute on chronic Heart failure type: unspecified Qualified Code(s): I50.9 - Heart failure, unspecified (4) Anasarca: Status: Acute (5) Peritonitis: Status: Acute Plan Patient presenting with fever, leukocytosis, signs of hypervolemia Source of fever under evaluation however may be related to spontaneous bacterial and UTI + UA, diagnostic paracentesis perfromed in the ER- cell count at 266 Urine cx gram-positive. Blood cx taken priro to abx . pending body fluid cx and gram stain We will continue Zosyn We will add vancomycin US guided paracentesis ordered for symptomatic relief , 4 L off, hold warfarin for the same , INR 1.89, 1 dose vitamin K might require repeat paracentesis tomorrow Clinically with hypervolemia, may be related to known CHF. Lasix 60mg iv q12h, albumin therapy, midodrine monitor I?O, renal function Hyponatremia, likely secondary fluid overload, diuresis as above CHF, Last known EF is 42% back in June 2020, currently with evidence of fluid overload, bilateral extreme edema, anasarca, encourage diuretic use, however patient declines Atrial fibrillation, hold Coumadin CAD, continue Plavix Hypothyroidism, continue levothyroxine Attestations Medical Necessity Statement*: Patient requires hospitalization for fluid overload, SBP, ascites, hyponatremia Coding Level of Care Code Acute Tax Compliance Agent for [facility] Fwd Diagnoses SIRS (systemic inflammatory response syndrome) R65.10 Nausea & vomiting R11.2 CHF (congestive heart failure) I50.9 Heart failure chronicity: acute on chronic Heart failure type: unspecified Anasarca R60.1 Peritonitis K65.9
[2021-06-30] MEDS: vancomycin 1,250 MG/250 ML PIGGYBACK 250 MG IV ×2 (12:59→23:14)
[2021-06-30 13:20] LABS: INR 1.88 (0.8-1.2)
[2021-07-01] VITALS (17 sets, daily range): BP systolic 98–146; BP diastolic 67–80; PULSE 68–92; RESP 16–22; TEMP 36.3–37; O2SAT 90–100
[2021-07-01] MEDS: midodrine 5 mg TABLET 10 MG PO ×2 (00:25→09:48)
[2021-07-01] MEDS: piperacillin-tazobactam 3.375 GM in sodium chloride 0.9% (plus) 50 ML IV ×3 (00:30→18:22)
[2021-07-01] MEDS: ipratropium-albuterol 3 mL Neb INHALATION ×4 (03:00→21:02)
[2021-07-01 03:06] LABS: Basophils # 0.1 10^3/uL (0.0-0.1); Basophils % 0.8 %; Eosinophils # 0.2 10^3/uL (0.0-0.8); Eosinophils % 2.9 %; Hematocrit 28.8 % (42.0-52.0); Hemoglobin 8.5 g/dL (11.7-16.6); Lymphocytes # 1.1 10^3/uL (0.8-4.8); Lymphocytes % 17.5 %; Mean Corpuscular HGB Conc 29.5 g/dL (30.0-36.0); Mean Corpuscular Hemoglobin 25.5 pg (28.0-34.0); Mean Corpuscular Volume 86.5 fl (80-94); Mean Platelet Volume 9.7 fL (7.4-10.4); Monocytes # 0.4 10^3/uL (0.2-0.9); Neutrophils # 4.37 10^3/uL (1.8-7.7); Neutrophils % 71.3 %; Nucleated Red Blood Cells % 0.3 %; Platelet Count 121 10^3/cmm (130-400); Red Blood Count 3.33 10^6/uL (4.1-5.3); Red Cell Distribution Width 18.7 % (12.1-15.1); White Blood Count 6.1 10^3/uL (4.0-10.0)
[2021-07-01 03:23] LABS: C Reactive Protein 96.9 mg/L (0.0-4.9); Magnesium 1.9 mg/dL (1.7-2.3); Phosphorus 3.4 mg/dL (2.5-4.5)
[2021-07-01 03:25] LABS: Alanine Aminotransferase 8 U/L (0-41); Albumin Level 3.5 g/dL (3.5-5.2); Alkaline Phosphatase 181 IU/L (40-130); Anion Gap 13.6 (5-19); Aspartate Amino Transferase 27 U/L (0-40); Blood Urea Nitrogen 20 mg/dL (8-23); Calcium 8.4 mg/dL (8.5-10.5); Carbon Dioxide 20 mmol/L (22-29); Chloride 97 mmol/L (98-107); Globulin 4.6 g/dL (1.3-4.6); Glomerular Filtration Rate 75.7 mL/min (90-130); Glucose 115 mg/dL (65-115); Osmolality Calculated 268 mOsm/kg (285-295); Potassium 3.6 mmol/L (3.5-5.1); Sodium 127 mmol/L (136-145); Total Bilirubin 1.1 mg/dL (0.15-1.2); Total Protein 8.1 g/dL (6.6-8.7)
[2021-07-01 03:39] LABS: NT Pro B Type Natriuretic Pept 18133 pg/mL (0-125)
[2021-07-01 03:50] LABS: Creatine Phosphokinase 290 U/L (39-308)
--- NOTE | 2021-07-01 09:35 | PC.SOCIAL ---
IMM Update Pg. 2 of IMM updated and reviewed with patient who verbalized understanding. Copy provided.
[2021-07-01] MEDS: clopidogrel 75 mg Tablet PO (09:48)
[2021-07-01] MEDS: levothyroxine 50 mcg Tablet PO (09:48)
[2021-07-01] MEDS: pantoprazole DR 40 mg Tablet PO (09:48)
[2021-07-01] MEDS: metoprolol succinate ER (24 HR) 25 mg Tablet PO (09:48)
[2021-07-01] MEDS: spironolactone 25 mg Tablet PO (09:48)
[2021-07-01] MEDS: atorvastatin 40 mg Tablet PO (09:48)
[2021-07-01] MEDS: vancomycin 1,250 MG/250 ML PIGGYBACK 250 MG IV (12:00)
--- NOTE | 2021-07-01 12:12 | P.PN_ITS ---
Subjective Subjective: Patient was seen this morning, sitting up beside the bed, currently 4 L, he tells me he feels better, his abdomen still distended, but he does not feel that he needs a paracentesis today, no nausea, no vomiting, no fevers, no lightheadedness, no dizziness Vitals/I&O/Wt Last Vital Signs Temp 97.5 F L 07/01/21 12:00 Pulse 79 07/01/21 12:00 Resp 18 07/01/21 12:00 BP 98/67 07/01/21 12:00 Pulse Ox 95 07/01/21 12:00 06/30/21 07/01/21 07/01/21 22:59 06:59 14:59 Intake Total 150 / 1200 300 / 1500 480 / 480 Output Total 400 / 400 1065 / 1465 Balance -250 / 800 -765 / 35 480 / 480 Weight last 48 hrs Weight 125.758 kg Physical Exam Const: COMMON NORMALS: no acute distress and patient oriented x3 Resp: COMMON NORMALS: normal respiratory effort, No retractions, No use of accessory muscles and clear to auscultation bilaterally AUSCULTATION: clear to auscultation bilaterally Cardio: COMMON NORMALS: regular rate, regular rhythm, S1 normal heart sound present and S2 normal heart sound present RATE: regular rate RHYTHM: regular rhythm HEART SOUNDS: S1 normal heart sound present and S2 normal heart sound present GI: COMMON NORMALS: Normal to inspection, nondistended, normoactive bowel sounds present, Soft to palpation and non-tender PALPATION: Yes Soft to palpation Extremity: NARRATIVE EXTREMITY EXAM: 1+ pitting edema bilateral lower extremities Neuro: COMMON NORMALS: patient oriented x3 Psych: COMMON NORMALS: mental status grossly normal Data : 07/01/21 02:35 07/01/21 02:35 Micro: Microbiology 07/01/21 10:24 Blood Culture - Preliminary Blood SPECIMEN COLLECTED 07/01/21 10:24 Blood Culture - Preliminary Blood SPECIMEN COLLECTED 06/28/21 20:40 Gram Stain - Final Peritoneal Fluid Body Fluid Culture - Preliminary 06/28/21 18:15 Urine Culture - Preliminary Urine,Clean Catch Strep species, alpha hemolytic A&P Assessment and plan (1) SIRS (systemic inflammatory response syndrome): Status: Acute (2) Nausea & vomiting: Status: Acute (3) CHF (congestive heart failure): Status: Acute Qualifiers: Heart failure chronicity: acute on chronic Heart failure type: unspecified Qualified Code(s): I50.9 - Heart failure, unspecified (4) Anasarca: Status: Acute (5) Peritonitis: Status: Acute Plan Patient presenting with fever, leukocytosis, signs of hypervolemia Source of fever likely related to to spontaneous bacterial and UTI + UA, diagnostic paracentesis perfromed in the ER- cell count at 266 Urine cx gram-positive. Blood cx taken priro to abx . pending body fluid cx so far negative and gram stain We will continue Zosyn We will add vancomycin as 1 of 4 blood culture positive for gram-positive likely contamination, repeat blood culture US guided paracentesis ordered for symptomatic relief , 4 L off, hold warfarin for the same , INR 1.6, patient is feeling better, no requirement for repeat paracentesis resume Coumadin Clinically with hypervolemia, may be related to known CHF. Lasix 60mg iv q12h, albumin therapy, midodrine monitor I?O, renal function Hyponatremia, likely secondary fluid overload, diuresis as above CHF, Last known EF is 42% back in June 2020, currently with evidence of fluid overload, bilateral extreme edema, anasarca, encourage diuretic use, however patient declines Atrial fibrillation, continue Coumadin CAD, continue Plavix Hypothyroidism, continue levothyroxine Attestations Medical Necessity Statement*: Patient requires hospitalization for fluid overload, SBP Coding Level of Care Code Acute Artificial Limb Fitter for Chg Fwd Diagnoses SIRS (systemic inflammatory response syndrome) R65.10 Nausea & vomiting R11.2 CHF (congestive heart failure) I50.9 Heart failure chronicity: acute on chronic Heart failure type: unspecified Anasarca R60.1 Peritonitis K65.9
[2021-07-01] MEDS: warfarin 6 mg Tablet PO (18:23)
[2021-07-01] MEDS: benzonatate 100 mg Capsule PO (23:00)
[2021-07-01 23:12] LABS: Vancomycin Trough 18.4 ug/mL (10-15)
[2021-07-02] VITALS (8 sets, daily range): BP systolic 116–121; BP diastolic 81; PULSE 60–82; RESP 16–20; TEMP 36.3; O2SAT 94–99
[2021-07-02] MEDS: vancomycin 1,250 MG/250 ML PIGGYBACK 250 MG IV (00:20)
[2021-07-02] MEDS: piperacillin-tazobactam 3.375 GM in sodium chloride 0.9% (plus) 50 ML IV (01:37)
[2021-07-02] MEDS: ipratropium-albuterol 3 mL Neb INHALATION (02:07)
[2021-07-02 04:28] LABS: Basophils # 0.1 10^3/uL (0.0-0.1); Basophils % 0.9 %; Eosinophils # 0.2 10^3/uL (0.0-0.8); Eosinophils % 3.9 %; Hematocrit 31.4 % (42.0-52.0); Hemoglobin 8.9 g/dL (11.7-16.6); Lymphocytes % 17.5 %; Mean Corpuscular HGB Conc 28.3 g/dL (30.0-36.0); Mean Corpuscular Hemoglobin 26.1 pg (28.0-34.0); Mean Corpuscular Volume 92.1 fl (80-94); Monocytes # 0.5 10^3/uL (0.2-0.9); Monocytes % 8.6 %; Neutrophils # 3.84 10^3/uL (1.8-7.7); Neutrophils % 68.6 %; Nucleated Red Blood Cells % 0.4 %; Platelet Count 120 10^3/cmm (130-400); Red Blood Count 3.41 10^6/uL (4.1-5.3); White Blood Count 5.6 10^3/uL (4.0-10.0)
[2021-07-02 04:48] LABS: INR 1.35 (0.8-1.2)
[2021-07-02 05:05] LABS: NT Pro B Type Natriuretic Pept 17240 pg/mL (0-125); Procalcitonin 6.12 ng/mL (0-0.5)
[2021-07-02 05:33] LABS: Alanine Aminotransferase 8 U/L (0-41); Albumin Level 3.7 g/dL (3.5-5.2); Alkaline Phosphatase 170 IU/L (40-130); Aspartate Amino Transferase 22 U/L (0-40); Blood Urea Nitrogen 15 mg/dL (8-23); C Reactive Protein 56.8 mg/L (0.0-4.9); Calcium 8.7 mg/dL (8.5-10.5); Carbon Dioxide 19 mmol/L (22-29); Chloride 99 mmol/L (98-107); Globulin 4.3 g/dL (1.3-4.6); Glucose 108 mg/dL (65-115); Osmolality Calculated 269 mOsm/kg (285-295); Phosphorus 2.6 mg/dL (2.5-4.5); Sodium 129 mmol/L (136-145); Total Bilirubin 1.1 mg/dL (0.15-1.2)
[2021-07-02 05:41] LABS: Anion Gap 14.8 (5-19); Potassium 3.8 mmol/L (3.5-5.1)
[2021-07-02] MEDS: metoprolol succinate ER (24 HR) 25 mg Tablet PO (08:23)
[2021-07-02] MEDS: atorvastatin 40 mg Tablet PO (08:23)
[2021-07-02] MEDS: levothyroxine 50 mcg Tablet PO (08:23)
[2021-07-02] MEDS: clopidogrel 75 mg Tablet PO (08:23)
[2021-07-02] MEDS: pantoprazole DR 40 mg Tablet PO (08:23)
[2021-07-02] MEDS: spironolactone 25 mg Tablet PO (08:24)
--- NOTE | 2021-07-02 10:24 | PC.NURSE ---
Patients here at this time. Patient states [place] get [place] the bank before [facility] [place] and wants to leave hospital at this time. AMA papers signed and patient educated on leaving against medical advice and risk to his health for doing so. Patient voices understanding and would still like to leave. Dr. Lamb updated at this time.
--- NOTE | 2021-07-02 13:49 | PM.DCS ---
Discharge Providers Date of Admission: 06/28/21 21:09 Date of Discharge: July 02, 2021 Attending Provider at Admission: Lita Dumont MD Attending Provider at Discharge: Grant Lamb MD Primary Care Provider: Ahmet Jasso MD Diagnoses at Discharge Discharge Diagnosis (1) SIRS (systemic inflammatory response syndrome): Status: Acute (2) Nausea & vomiting: Status: Acute (3) CHF (congestive heart failure): Status: Acute Qualifiers: Heart failure chronicity: acute on chronic Heart failure type: unspecified Qualified Code(s): I50.9 - Heart failure, unspecified (4) Anasarca: Status: Acute (5) Peritonitis: Status: Acute Reason for Visit Reason for Visit: N/V, FEVER Hospital Course Hospital Course Patient left AGAINST MEDICAL ADVICE on 07/02/2021 before he could be seen Leroy Gautam is a 60 year old male with h/o non ischemic cardiomyopathy, right heart failure, sleep apnea, anasarca with h/o frequent paracentesis p/w c/o generalized weakness, nausea and vomiting over the past week. Noted to have t max 100.4F at the ER along with leukocytosis. Patient presented to [facility] for fever, leukocytosis, hyperkalemia likely secondary to acute on chronic ascites, likely secondary to underlying spontaneous bacterial peritonitis and UTI. So far his blood cultures remain unremarkable, peritoneal cultures remain unremarkable, urine culture shows Aerococcus species. He was treated with broad-spectrum antibiotic therapy. Patient did have paracentesis, 4 L off. He also had diuresis, for CHF, intermittently with decline diuresis, diuresed over 4 L, on 3 L at that time of leaving AGAINST MEDICAL ADVICE. Patient wanted to leave the hospital early in the morning, I was not immediately available, patient left AGAINST MEDICAL ADVICE before I could see him. I will send in his medications, have him follow with his primary care provider in 1 week. Discharge Data Studies Completed and Pending Completed Studies During Hospitalization Category Date Time Status CT abdomen pelvis w con* [id number] Urgent Cat Scan 06/28/21 16:21 Completed XR chest 1V portable [id number] Urgent Exams 06/28/21 15:59 Completed Pending at discharge Category Date Time Status Blood Culture Stat Lab 06/28/21 15:52 Results Blood Culture Stat Lab 07/01/21 10:24 Results MRSA by PCR Stat Lab 06/30/21 21:20 Ordered Radiology Impressions Chest X-Ray 06/28/21 15:59 IMPRESSION: 1. Cardiomegaly. 2. Right hilar to lower lobe atelectasis versus infiltrate. 3. Mild interstitial edema. Abdomen/Pelvis CT 06/28/21 16:21 IMPRESSION: 1. Large volume ascites and presumably liver cirrhosis. No significant changes in these findings from prior. 2. Negative for bowel obstruction. No focal acute inflammatory disease process in the abdomen or pelvis identified. COMMENTS: Consistent with the [employer]'s Incidental Findings Committee white paper (J Am Marina Radiol 2018): Any incidental renal lesion less than 1 cm or classified as too small to characterize, or any incidental cystic renal lesion characterized as simple-appearing, is likely benign. No follow-up imaging is recommended for these lesions per consensus recommendations based on imaging criteria. Laboratory Results WBC 5.6 10^3/uL (4.0-10.0) 07/02/21 03:49 RBC 3.41 10^6/uL (4.1-5.3) L 07/02/21 03:49 Hgb 8.9 g/dL (11.7-16.6) L 07/02/21 03:49 Hct 31.4 % (42.0-52.0) L 07/02/21 03:49 MCV 92.1 fl (80-94) D 07/02/21 03:49 MCH 26.1 pg (28.0-34.0) L 07/02/21 03:49 MCHC 28.3 g/dL (30.0-36.0) L 07/02/21 03:49 RDW 19.0 % (12.1-15.1) H 07/02/21 03:49 Plt Count 120 10^3/cmm (130-400) L 07/02/21 03:49 MPV 11.0 fL (7.4-10.4) H 07/02/21 03:49 Neut % (Auto) 68.6 % 07/02/21 03:49 Lymph % (Auto) 17.5 % 07/02/21 03:49 [place] % (Auto) 8.6 % 07/02/21 03:49 Eos % (Auto) 3.9 % 07/02/21 03:49 Baso % (Auto) 0.9 % 07/02/21 03:49 Neut # (Auto) 3.84 10^3/uL (1.8-7.7) 07/02/21 03:49 Lymph # (Auto) 1.0 10^3/uL (0.8-4.8) 07/02/21 03:49 [place] # (Auto) 0.5 10^3/uL (0.2-0.9) 07/02/21 03:49 Eos # (Auto) 0.2 10^3/uL (0.0-0.8) 07/02/21 03:49 Baso # (Auto) 0.1 10^3/uL (0.0-0.1) 07/02/21 03:49 Nucleated RBC % (auto) 0.4 % 07/02/21 03:49 Nucleated RBCs # 0.0 /100WBC 07/02/21 03:49 Differential Comment Yes 06/28/21 20:40 PT 17.00 SECONDS (12.1-14.9) H 07/02/21 03:49 INR 1.35 (0.8-1.2) H 07/02/21 03:49 APTT 35.1 SECONDS (23.9-36.7) 06/28/21 15:52 Sodium 129 mmol/L (136-145) L 07/02/21 03:49 Potassium 3.8 mmol/L (3.5-5.1) 07/02/21 03:49 Chloride 99 mmol/L (98-107) 07/02/21 03:49 Carbon Dioxide 19 mmol/L (22-29) L 07/02/21 03:49 Anion Gap 14.8 (5-19) 07/02/21 03:49 BUN 15 mg/dL (8-23) 07/02/21 03:49 Creatinine 0.8 mg/dL (0.7-1.2) 07/02/21 03:49 GFR Calculation 98.0 mL/min (90-130) 07/02/21 03:49 Glucose 108 mg/dL (65-115) 07/02/21 03:49 POC Glucose 101 mg/dL (70-110) 06/29/21 06:41 Calculated Osmolality 269 mOsm/kg (285-295) L 07/02/21 03:49 Lactic Acid 1.9 mmol/L (0.5-2.2) 06/28/21 22:58 Lactate 2.0 mmol/L (0.5-2.2) 07/01/21 02:35 Calcium 8.7 mg/dL (8.5-10.5) 07/02/21 03:49 Phosphorus 2.6 mg/dL (2.5-4.5) 07/02/21 03:49 Magnesium 2.0 mg/dL (1.7-2.3) 07/02/21 03:49 Total Bilirubin 1.1 mg/dL (0.15-1.2) 07/02/21 03:49 AST 22 U/L (0-40) 07/02/21 03:49 ALT 8 U/L (0-41) 07/02/21 03:49 Alkaline Phosphatase 170 IU/L (40-130) H 07/02/21 03:49 Creatine Kinase 290 U/L (39-308) 07/01/21 02:35 Troponin T Baseline 74 ng/L (0-15) H 06/28/21 15:52 Troponin T 120 Minute 77.36 ng/L (0-15) H 06/28/21 18:13 Delta Troponin T 3.36 ABS# (0-10) 06/28/21 18:13 Troponin T Hi Sens 6Hr 73.56 ng/L (0-15) H 06/28/21 21:34 Troponin T Hi Sens 6Hr Delta -0.44 ng/L (0-12) L 06/28/21 21:34 C-Reactive Protein 56.8 mg/L (0.0-4.9) H 07/02/21 03:49 NT-Pro-B Natriuret Pep 54285 pg/mL (0-125) H 07/02/21 03:49 Total Protein 8.0 g/dL (6.6-8.7) 07/02/21 03:49 Albumin 3.7 g/dL (3.5-5.2) 07/02/21 03:49 Globulin 4.3 g/dL (1.3-4.6) 07/02/21 03:49 Procalcitonin 6.12 ng/mL (0-0.5) H 07/02/21 03:49 Urine Color [place] (Yellow) 06/28/21 18:15 Urine Appearance Sl hazy (CLEAR) 06/28/21 18:15 Urine pH 5 (5-7) 06/28/21 18:15 Ur Specific [place] 1.025 (1.005-1.030) 06/28/21 18:15 Urine Protein Trace (Negative) 06/28/21 18:15 Urine Glucose (UA) Norm (Normal) 06/28/21 18:15 Urine Ketones 1+ (Negative) H 06/28/21 18:15 Urine Blood 2+ (Negative) H 06/28/21 18:15 Urine Nitrate Negative (Negative) 06/28/21 18:15 Urine Bilirubin 1+ (Negative) H 06/28/21 18:15 Urine Urobilinogen 8 mg/dL (Negative) H 06/28/21 18:15 Ur Leukocyte Esterase 1+ (Negative) H 06/28/21 18:15 Urine RBC 25-40 /hpf (0-2) H 06/28/21 18:15 Urine WBC 55-80 /hpf (0-5) H 06/28/21 18:15 Ur Squamous Epith Cells 5-10 /hpf (0-5) H 06/28/21 18:15 Amorphous Sediment Not Reportable 06/28/21 18:15 Urine Bacteria 4+ /hpf (NONE) H 06/28/21 18:15 Fluid Color Red 06/28/21 20:40 Fluid Appearance Cloudy 06/28/21 20:40 Fluid pH 8.0 06/28/21 20:40 Fluid WBC 266 /uL 06/28/21 20:40 Fluid RBC 14.000 10^3/uL 06/28/21 20:40 Fld Polynuclear WBCs # 0.080 06/28/21 20:40 Fld Polynuclear WBCs % 30.100 % 06/28/21 20:40 Fl Mononucl WBCs #(Auto) 0.186 06/28/21 20:40 Fl Mononuclear % Auto 69.900 % 06/28/21 20:40 Fluid Glucose 101.0 mg/dL 06/28/21 20:40 Fluid Total Protein 3.6 g/dL 06/28/21 20:40 Fluid Albumin 1.4 g/dL 06/28/21 20:40 Fluid LDH 95 U/L 06/28/21 20:40 Fluid Amylase 10 U/L 06/28/21 20:40 Fluid Alk Phosphatase 62 IU/L 06/28/21 20:40 Fluid Triglycerides 99 mg/dL (0-150) 06/28/21 20:40 Fluid Uric Acid 4 mg/dL 06/28/21 20:40 Vancomycin Trough 18.4 ug/mL (10-15) H 07/01/21 22:27 Coronavirus 229E (PCR) Not detected (NOT DETECT) 06/28/21 21:18 SARS-CoV-2 (PCR) Not detected (NOT DETECT) 06/28/21 21:18 Vitals Last Vital Signs Temp 97.4 F L 07/02/21 04:00 Pulse 79 07/02/21 10:27 Resp 18 07/02/21 10:27 BP 121/81 07/02/21 07:48 Pulse Ox 99 07/02/21 10:27 Discharge Plan Discharge Patient Disposition: Left Against Medical Advice Condition: Stable Prescriptions: No Action (DME) Portable oxygen with concentrator See Rx Instructions .Route .MEDSUPPLY Qty: 1 0RF Rx Instructions: As directed (DME) oxygen aerosol See Rx Instructions .Route .MEDSUPPLY Qty: 1 0RF Rx Instructions: 2 liters (DME) OXYGEN See Rx Instructions .Route .MEDSUPPLY Qty: 1 0RF Rx Instructions: CONSENTRATOR AND HOME FILL- 3 LITERS warfarin 6 mg tablet 6 mg PO DIRECTED Qty: 90 3RF Rx Instructions: takes on SUNDAY, SUNDAY, SUNDAY, SUNDAY (DME) DME: [facility] See Rx Instructions .Route Qty: 1 0RF Rx Instructions: As directed (DME) bi pap See Rx Instructions .Route .MEDSUPPLY Qty: 1 0RF Rx Instructions: see sleep study/titration attached. albuterol sulfate 2.5 mg /3 mL (0.083 %) solution for nebulization 2.5 mg INHALATION Q4H PRN (Reason: Shortness Of Breath) Qty: 90 3RF furosemide [Lasix] 40 mg tablet 40 mg PO BID@, 0RF metolazone 2.5 mg tablet 2.5 mg PO BID@,14 0RF clopidogrel 75 mg tablet 75 mg PO DAILY@09 0RF potassium chloride 20 mEq tablet extended release 20 meq PO TID@,, 0RF atorvastatin 40 mg tablet 40 mg PO DAILY 0RF spironolactone 25 mg tablet 25 mg PO DAILY 0RF Euthyrox 50 mcg tablet 50 mcg PO DAILY 0RF Rx Instructions: (REPEAT LABS IN 6 WEEKS) metoprolol succinate 25 mg tablet extended release 24 hr 25 mg PO DAILY 0RF Referrals: Ahmet Jasso MD [Primary Care Provider] - Patient Instructions: Opioid Safety Discharge Attestations Time Spent in Discharge Care*: less than 30 min Status at Discharge: Cognitive status at discharge: cognitively intact, Behavioral status at discharge: cooperative, Quality Metrics Clinical Quality Measures [ No reported AMI, CVA or VTE this stay] Coding Level of Care Code Acute g FW DC note Diagnoses SIRS (systemic inflammatory response syndrome) R65.10 Nausea & vomiting R11.2 CHF (congestive heart failure) I50.9 Heart failure chronicity: acute on chronic Heart failure type: unspecified Anasarca R60.1 Peritonitis K65.9
== END 2021-07-02 10:28 | disposition left against medical advice (07) | DRG 372 ==
LOC: ER 21:07 → MEDSURG 06-29 01:22
PROVIDERS: Admitting Provider Student in an Organized Health Care Education/Training Program; Emergency Provider Emergency Medicine; PCP Internal Medicine; Visit Provider Family Medicine
DX: K65.2 Spontaneous bacterial peritonitis (principal); I13.0 Hypertensive heart and chronic kidney disease with heart failure and stage 1 through stage 4 chronic kidney disease, or unspecified chronic kidney disease; R18.8 Other ascites; E87.1 Hypo-osmolality and hyponatremia; N39.0 Urinary tract infection, site not specified; I42.8 Other cardiomyopathies; N18.30 Chronic kidney disease, stage 3 unspecified; I11.0 Hypertensive heart disease with heart failure; I50.813 Acute on chronic right heart failure; Z86.73 Personal history of transient ischemic attack (TIA), and cerebral infarction without residual deficits; I48.0 Paroxysmal atrial fibrillation; D63.1 Anemia in chronic kidney disease; I25.10 Atherosclerotic heart disease of native coronary artery without angina pectoris; E78.5 Hyperlipidemia, unspecified; E03.9 Hypothyroidism, unspecified; F17.210 Nicotine dependence, cigarettes, uncomplicated; G47.33 Obstructive sleep apnea (adult) (pediatric); Z95.0 Presence of cardiac pacemaker; J43.1 Panlobular emphysema; I73.9 Peripheral vascular disease, unspecified; E53.8 Deficiency of other specified B group vitamins; Z79.51 Long term (current) use of inhaled steroids; Z79.01 Long term (current) use of anticoagulants; Z53.21 Procedure and treatment not carried out due to patient leaving prior to being seen by health care provider
CPT/HCPCS: 36415; 36416; 49083; 51798; 71045; 74177; 80053; 80202; 80500; 81001; 82042; 82150; 82550; 82945; 82962; 83605; 83615; 83735; 83880; 83986; 84075; 84100; 84145; 84157; 84478; 84484; 84560; 85025; 85610; 85730; 86140; 87040; 87070; 87075; 87077; 87086; 87205; 87635; 89050; 93005; 94640; 94660; 96365; 96366; 96367; 96372; 96375; 99285; G0378; J0696; J1940; J2270; J2405; J2543; J2765; J3370; J3430; P9047; Q9967

== ENCOUNTER 2021-07-04 10:44 | Day surgery (SDC) | payer MEDICARE, SELFPAY ==
[2021-07-04 10:55] VITALS: BP 116/85; PULSE 86; RESP 16; TEMP 36.6; O2SAT 95; BMI 38.7
== END 2021-07-04 11:45 | disposition home or self-care (01) ==
LOC: GILAB 10:47
PROVIDERS: PCP Internal Medicine; Visit Provider Internal Medicine
PROC: (CPT 49082; principal; 2021-07-04 11:00)
DX: R18.8 Other ascites (principal)
CPT/HCPCS: 49082

== ENCOUNTER 2021-07-28 11:05 | Day surgery (SDC) | payer MEDICARE, SELFPAY ==
[2021-07-28 11:16] VITALS: BP 126/86; PULSE 74; RESP 16; TEMP 36.5; O2SAT 100; BMI 39.3
--- NOTE | 2021-07-28 15:27 | PM.ACPR ---
Acute Procedures Paracentesis: Time out performed: Yes Indication: Ascites Procedure: therapeutic paracentesis Location: LLQ Local anesthetic used: lidocaine 1% Amount of anesthesia used (ml): 10 Bedside ultrasound used: no Preparation: sterile prep and drape and 11 blade used to make kim in skin Amount of fluid obtained (ml): 6,200 Fluid: clear Post procedure exam: awake, alert, normal BP, normal HR and normal SpO2 Patient tolerated procedure: well and no complications
== END 2021-07-28 13:00 | disposition home or self-care (01) ==
LOC: GILAB 11:07
PROVIDERS: PCP Internal Medicine; Visit Provider Internal Medicine
PROC: (CPT 49082; principal; 2021-07-28 12:00)
DX: R18.8 Other ascites (principal)
CPT/HCPCS: 49082

== ENCOUNTER 2021-08-11 11:00 | Day surgery (SDC) | payer MEDICARE, SELFPAY ==
[2021-08-11 11:20] VITALS: BP 122/81; PULSE 78; RESP 22; TEMP 36.8; O2SAT 95
--- NOTE | 2021-08-11 15:50 | PM.ACPR ---
Acute Procedures Paracentesis: Time out performed: Yes Indication: Ascites Procedure: therapeutic paracentesis Location: LLQ Local anesthetic used: lidocaine 1% Amount of anesthesia used (ml): 10 Bedside ultrasound used: no Preparation: sterile prep and drape and 11 blade used to make kim in skin Amount of fluid obtained (ml): 11,800 Fluid: clear Post procedure exam: awake, alert, normal BP, normal HR and normal SpO2 Patient tolerated procedure: well and no complications
== END 2021-08-11 13:38 | disposition home or self-care (01) ==
LOC: GILAB 11:00
PROVIDERS: PCP Internal Medicine; Visit Provider Internal Medicine
PROC: (CPT 49082; principal; 2021-08-11 12:00)
DX: R18.8 Other ascites (principal)
CPT/HCPCS: 49082

== ENCOUNTER 2021-08-24 10:58 | Day surgery (SDC) | payer MEDICARE, SELFPAY ==
[2021-08-24 11:20] VITALS: BP 130/91; PULSE 69; RESP 20; TEMP 36.8; O2SAT 95
[2021-08-24 11:38] VITALS: BMI 39.0
[2021-08-24 13:59] VITALS: BP 102/66; PULSE 72; RESP 18; O2SAT 99
== END 2021-08-24 14:09 | disposition home or self-care (01) ==
LOC: GILAB 10:59
PROVIDERS: PCP Internal Medicine; Visit Provider Internal Medicine
PROC: (CPT 49082; principal; 2021-08-24 12:00)
DX: Z01.818 Encounter for other preprocedural examination (principal)
CPT/HCPCS: 49082

== ENCOUNTER → 2021-09-01 14:43 | Outpatient (BNVA) | payer MEDICARE, SELFPAY | PROVIDERS: PCP Internal Medicine; Visit Provider Internal Medicine Cardiovascular Disease | DX: I13.0 Hypertensive heart and chronic kidney disease with heart failure and stage 1 through stage 4 chronic kidney disease, or unspecified chronic kidney disease (principal); I50.9 Heart failure, unspecified; I48.19 Other persistent atrial fibrillation; I25.10 Atherosclerotic heart disease of native coronary artery without angina pectoris; Z95.0 Presence of cardiac pacemaker; R18.8 Other ascites; K74.60 Unspecified cirrhosis of liver; F17.210 Nicotine dependence, cigarettes, uncomplicated; N18.30 Chronic kidney disease, stage 3 unspecified; N17.9 Acute kidney failure, unspecified | CPT/HCPCS: 99214 ==

== ENCOUNTER 2021-09-08 10:05 | Day surgery (SDC) | payer MEDICARE, SELFPAY ==
[2021-09-08 10:14] VITALS: BP 125/75; PULSE 63; RESP 18; O2SAT 97
[2021-09-08 10:30] VITALS: BMI 33.7
--- NOTE | 2021-09-10 09:37 | PM.ACPR ---
Acute Procedures Paracentesis: Time out performed: Yes Indication: Ascites Procedure: therapeutic paracentesis Location: LLQ Local anesthetic used: lidocaine 1% Amount of anesthesia used (ml): 5 Bedside ultrasound used: no Preparation: sterile prep and drape and 11 blade used to make kim in skin Amount of fluid obtained (ml): 6,000 Fluid: clear Post procedure exam: awake, alert, normal BP, normal HR and normal SpO2 Patient tolerated procedure: well and no complications
== END 2021-09-13 15:10 | disposition home or self-care (01) ==
LOC: GILAB 10:07
PROVIDERS: PCP Internal Medicine; Visit Provider Internal Medicine
PROC: (CPT 49082; principal; 2021-09-08 11:00)
DX: R18.8 Other ascites (principal)
CPT/HCPCS: 49082

== ENCOUNTER 2021-09-22 10:47 | Day surgery (SDC) | payer MEDICARE, SELFPAY ==
[2021-09-20 09:34] VITALS: BMI 36.2
[2021-09-22 11:01] VITALS: BP 113/66; PULSE 74; RESP 18; TEMP 36.2; O2SAT 98
[2021-09-22] MEDS: lidocaine 1% INJ 20 mL 5 ML INJECTION (11:22)
[2021-09-22 12:24] VITALS: BP 106/61; PULSE 67; RESP 20; O2SAT 100
== END 2021-09-22 12:32 | disposition home or self-care (01) ==
LOC: GILAB 10:52
PROVIDERS: PCP Internal Medicine; Visit Provider Internal Medicine
PROC: (CPT 49082; principal; 2021-09-22 12:00)
DX: R18.8 Other ascites (principal)
CPT/HCPCS: 49082

== ENCOUNTER 2021-10-05 10:37 | Day surgery (SDC) | payer MEDICARE, SELFPAY ==
[2021-10-05 10:55] VITALS: BP 118/68; PULSE 63; RESP 18; TEMP 36.3; O2SAT 100; BMI 36.2
[2021-10-05] MEDS: lidocaine 1% INJ 20 mL 5 ML INJECTION (11:00)
== END 2021-10-05 12:29 | disposition home or self-care (01) ==
PROVIDERS: PCP Internal Medicine; Visit Provider Internal Medicine
PROC: (CPT 49082; principal; 2021-10-05 12:00)
DX: R18.8 Other ascites (principal)
CPT/HCPCS: 49082

== ENCOUNTER 2021-10-24 09:32 | Day surgery (SDC) | payer MEDICARE, SELFPAY ==
[2021-10-19 09:49] VITALS: BMI 33.5
[2021-10-24 09:58] VITALS: BP 110/66; PULSE 62; RESP 18; TEMP 36.5; O2SAT 100
--- NOTE | 2021-10-24 11:37 | PM.ACPR ---
Acute Procedures Paracentesis: Time out performed: Yes Procedure: therapeutic paracentesis Location: LLQ Local anesthetic used: lidocaine 1% Amount of anesthesia used (ml): 6 Bedside ultrasound used: no Amount of fluid obtained (ml): 8,700 Fluid: clear Post procedure exam: awake, alert Patient tolerated procedure: well and no complications Complications: none
== END 2021-10-24 11:30 | disposition home or self-care (01) ==
LOC: GILAB 09:33
PROVIDERS: PCP Internal Medicine; Visit Provider Internal Medicine
PROC: (CPT 49082; principal; 2021-10-24 10:30)
DX: R18.8 Other ascites (principal)
CPT/HCPCS: 49082